=== PATIENT | female | born 1960 | race Caucasian/White ===

== ENCOUNTER → 2016-06-20 | Outpatient (REF) ==
[~2016-06-20] MED LIST: AUGMENTIN OR; DELTASONE OR; ECOT81TA5 PO; EXCEDRIN MIGRAINE OR; FIORICET OR; FISH100049 PO; INSUHUMDS SC; INSULANT SC; INVO300T PO; LISI-538 PO; MAG-OX OR; METF1000 PO; MOM30SS PO; PAME50CA PO; SENO8.6T10 PO; TOPA100T8 PO
--- NOTE | 2016-06-20 15:51 | REP ---
CERVICAL SPINE: The C1-C2 relationship is normal. On the lateral plane, the cervical spine is seen down to the level of C5-C6. C6-C7 is not included. The neural arches, disc spaces, neck and base of the skull are normal. On the AP plane of the cervical spine there is no significant neural foramen process spurs. IMPRESSION: The cervical spine study is normal. However, only the segments down to C5-C6 interspace are identified. Unreviewed
--- NOTE | 2016-06-20 16:00 | REP ---
LUMBAR SPINE: This study is compared to that on 02/15/2012. In the right upper quadrant are surgical clips from previous cholecystectomy. There are degenerative spurs of the spine with slight progressive disc space narrowing at L4-L5 and possibly at L5-S1. At L4-L5, slight anterolisthesis has occurred. The remaining thoracic and lumbar segments do show degenerative spurring. There are vascular calcifications in the abdominal aorta. The remaining structures of the abdomen, pelvis and sacroiliac joint visualized are unremarkable. The left hip is included on the study and appears grossly normal. IMPRESSION: Degenerative spurs of the spine. Progressive degenerative disc disease at L4-L5 with slight anterolisthesis. Minimal disc space narrowing at L5-S1, probably unchanged. Unreviewed
== END ==
LOC: M SMT 11:30
PROVIDERS: ATTEND Internal Medicine
DX: Z02.1 Encounter for pre-employment examination (principal)

== ENCOUNTER → 2016-11-07 | Outpatient (CLI) | payer OTHER ==
[~2016-11-07] MED LIST changes: +AUGM875T28 PO; +LANTINJ4 SC; -METF1000 PO; +METF10004 PO; +TOPA100T12 PO; -TOPA100T8 PO; +humalog
[2016-11-07 13:56] LABS: ALBUMIN 3.5 GM/DL (3.2-5.2); ANION GAP 6 MEQ/L (8-16); BLOOD UREA NITROGEN 23 MG/DL (7-18); CALCIUM LEVEL 9.6 MG/DL (8.5-10.1); CARBON DIOXIDE LEVEL 28 MEQ/L (21-32); CHLORIDE LEVEL 108 MEQ/L (98-107); CREATININE FOR GFR 1.01 MG/DL (0.55-1.02); GLOMERULAR FILTRATION RATE > 60.0 (>51); GLUCOSE, FASTING 117 MG/DL (70-105); PHOSPHORUS LEVEL 3.6 MG/DL (2.5-4.9); SODIUM LEVEL 142 MEQ/L (136-145)
[2016-11-07 14:02] LABS: POTASSIUM SERUM 5.2 MEQ/L (3.5-5.1)
== END ==
LOC: M LAB 12:24
PROVIDERS: ATTEND Internal Medicine Nephrology
DX: E11.22 Type 2 diabetes mellitus with diabetic chronic kidney disease (principal); N18.9 Chronic kidney disease, unspecified

== ENCOUNTER → 2017-02-01 | Outpatient (CLI) | payer OTHER ==
--- NOTE | 2017-02-01 12:04 | REPMRS ---
Patient History The patient states she had a clinical breast exam in 01/2017. Patient is postmenopausal. Family history of unknown cancer in father at age 50 or over. Digital Woman Screen Mammo: February 01, 2017 - Exam #: [id number] Bilateral CC and MLO view(s) were taken. Technologist: Renea Martin, Technologist Prior study comparison: September 10, 2008, bilateral digital woman screen mammo performed at [facility]. FINDINGS: The breast tissue is almost entirely fat. The patient states that there are no palpable abnormalities or other breast complaints. The parenchyma is predominately fat density. There has been no change in the appearance of the mammogram from the prior studies. There is no interval development of dominant mass, areas of architectural distortion, or clustered microcalcification typical of malignancy. ASSESSMENT: BI-RADS/ACR category 1 mammogram. Negative. Recommendation Routine screening mammogram in 1 year (for women over age 40). This mammogram was interpreted with the aid of an FDA-approved computer-aided dectection system. A. Negative x-ray reports should not delay biopsy if a dominant or clinically suspicious mass is present. B. Not all cancers are identified by mammography. C. Adenosis and dense breast may obscure an underlying neoplasm. Electronically Signed By: Jose Nino M.D. 02/01/17 [id number]
== END ==
LOC: M WHC 10:30
PROVIDERS: ATTEND Nurse Practitioner Women's Health
DX: Z12.31 Encounter for screening mammogram for malignant neoplasm of breast (principal)

== ENCOUNTER → 2017-02-01 | Outpatient (REF) | payer OTHER | LOC: M SFHCWAGY 11:06 | PROVIDERS: ATTEND Nurse Practitioner Women's Health | DX: Z12.4 Encounter for screening for malignant neoplasm of cervix (principal) ==

== ENCOUNTER → 2017-06-12 | Outpatient (CLI) | payer OTHER | LOC: M RAD 10:09 | DX: M79.604 Pain in right leg (principal) | CPT/HCPCS: 93971 ==

== ENCOUNTER 2017-08-17 19:24 | Emergency (ER) | payer MEDICAID, SELFPAY, OTHER ==
[2017-08-17] MEDS: NORCO, ANEXSIA 5/325MG TABLET (HYDROcodone/ACETAMINOPHEN) PO (21:27)
== END 2017-08-17 22:36 | disposition home or self-care (01) ==
LOC: M ED 19:24
DX: S90.31XA Contusion of right foot, initial encounter (principal); S82.001A Unspecified fracture of right patella, initial encounter for closed fracture; W01.0XXA Fall on same level from slipping, tripping and stumbling without subsequent striking against object, initial encounter; Y92.099 Unspecified place in other non-institutional residence as the place of occurrence of the external cause; Y99.9 Unspecified external cause status; Y93.K1 Activity, walking an animal; E11.9 Type 2 diabetes mellitus without complications; M77.31 Calcaneal spur, right foot; Z79.82 Long term (current) use of aspirin; Z79.4 Long term (current) use of insulin; Z79.899 Other long term (current) drug therapy; Z88.8 Allergy status to other drugs, medicaments and biological substances
CPT/HCPCS: 73564

== ENCOUNTER 2017-09-15 21:47 | Emergency (ER) | payer MEDICARE, MEDICAID ==
[2017-09-15 22:26] LABS: BEDSIDE GLUCOSE 244 MG/DL (70-105)
[2017-09-15 23:00] LABS: BASO % 0.4 % (0.0-1.0); EOS # 0.3 10^3/uL (0.0-0.50); EOS % 2.6 % (0.0-3.0); HEMOGLOBIN 10.6 g/dl (12.0-15.5); IMMATURE GRANULOCYTE % 0.5 % (0-3.0); LYMPH # 3.3 10^3/uL (1.5-4.5); LYMPH % 34.5 % (24.0-44.0); MEAN CORPUSCULAR HEMOGLOBIN 30.4 pg (27.0-33.0); MEAN CORPUSCULAR HGB CONC 32.1 g/dl (32.0-36.5); MEAN CORPUSCULAR VOLUME 94.6 fl (80.0-96.0); MONO # 0.4 10^3/uL (0.0-0.8); MONO % 4.2 % (0.0-5.0); NEUTROPHILS # 5.5 10^3/uL (1.8-7.7); NEUTROPHILS % 57.8 % (36.0-66.0); PLATELET COUNT, AUTOMATED 242 10^3/uL (150-450); RED BLOOD COUNT 3.49 10^6/uL (4.00-5.40); WHITE BLOOD COUNT 9.5 10^3/uL (4.0-10.0)
[2017-09-15] MEDS: KETOROLAC 30 MG/ML VIAL (J1885) IV (23:00)
[2017-09-15 23:26] LABS: ANION GAP 8 MEQ/L (8-16); BLOOD UREA NITROGEN 16 MG/DL (7-18); CALCIUM LEVEL 8.1 MG/DL (8.5-10.1); CARBON DIOXIDE LEVEL 26 MEQ/L (21-32); CHLORIDE LEVEL 108 MEQ/L (98-107); CPK CREATINE PHOSPHOKINASE 86 U/L (26-192); CREATININE FOR GFR 1.23 MG/DL (0.55-1.30); GLOMERULAR FILTRATION RATE 48.3 (>51); GLUCOSE, FASTING 254 MG/DL (70-100); MAGNESIUM LEVEL 1.4 MG/DL (1.8-2.4); POTASSIUM SERUM 4.6 MEQ/L (3.5-5.1); SODIUM LEVEL 142 MEQ/L (136-145); TROPONIN I < 0.02 NG/ML (< 0.10)
[2017-09-15 23:31] LABS: CK-MB VALUE MASS 1.5 NG/ML (<3.6); MB/CK RELATIVE INDEX 1.74 (< OR =4)
[2017-09-16 01:20] LABS: KETONE, URINE AUTO RFX NEGATIVE (NEGATIVE); LEUKOCYTE ESTERASE UR AUTO RFX NEGATIVE (NEGATIVE); MUCUS, URINE RFX SMALL (NEGATIVE); NITRITE, URINE AUTO RFX NEGATIVE (NEGATIVE); RBC, URINE AUTO RFX 1 /HPF (0-3); SPECIFIC GRAVITY UR AUTO RFX 1.023 (1.002-1.035); SQUAM EPITHELIAL CELL UR AURFX 2 /HPF (0-6); WBC, URINE AUTO RFX 5 /HPF (0-3)
== END 2017-09-16 02:23 | disposition home or self-care (01) ==
LOC: M ED 21:47
DX: T14.8XXA Other injury of unspecified body region, initial encounter (principal); W19.XXXA Unspecified fall, initial encounter; Y92.89 Other specified places as the place of occurrence of the external cause; E11.9 Type 2 diabetes mellitus without complications; I10 Essential (primary) hypertension; K21.9 Gastro-esophageal reflux disease without esophagitis; E78.5 Hyperlipidemia, unspecified; F32.9 Major depressive disorder, single episode, unspecified; F41.9 Anxiety disorder, unspecified; G50.0 Trigeminal neuralgia; I25.10 Atherosclerotic heart disease of native coronary artery without angina pectoris; M19.90 Unspecified osteoarthritis, unspecified site; Z95.5 Presence of coronary angioplasty implant and graft
CPT/HCPCS: J1885

== ENCOUNTER 2017-09-17 14:02 | Outpatient (RCR) | payer MEDICARE, MEDICAID | END 2017-09-26 | LOC: M PT 14:02 | DX: Z51.89 Encounter for other specified aftercare (principal); M17.0 Bilateral primary osteoarthritis of knee; S83.241D Other tear of medial meniscus, current injury, right knee, subsequent encounter; M25.561 Pain in right knee; M25.562 Pain in left knee | CPT/HCPCS: 97110 ==

== ENCOUNTER 2017-10-03 14:16 | Outpatient (RCR) | payer MEDICARE, MEDICAID | END 2017-10-26 | LOC: M PT 14:16 | DX: Z47.89 Encounter for other orthopedic aftercare (principal); M17.0 Bilateral primary osteoarthritis of knee; M25.561 Pain in right knee; M25.562 Pain in left knee | CPT/HCPCS: 97110 ==

== ENCOUNTER 2017-10-14 09:47 | Emergency (ER) | payer MEDICARE, MEDICAID ==
[2017-10-14 10:09] LABS: BASO # 0.1 10^3/uL (0.0-0.2); BASO % 0.6 % (0.0-1.0); EOS # 0.1 10^3/uL (0.0-0.50); EOS % 1.3 % (0.0-3.0); HEMATOCRIT 33.7 % (36.0-47.0); IMMATURE GRANULOCYTE % 0.3 % (0-3.0); LYMPH # 3.1 10^3/uL (1.5-4.5); MEAN CORPUSCULAR HEMOGLOBIN 30.2 pg (27.0-33.0); MEAN CORPUSCULAR HGB CONC 32.6 g/dl (32.0-36.5); MEAN CORPUSCULAR VOLUME 92.6 fl (80.0-96.0); MONO # 0.4 10^3/uL (0.0-0.8); MONO % 4.1 % (0.0-5.0); NEUTROPHILS # 5.9 10^3/uL (1.8-7.7); NEUTROPHILS % 61.7 % (36.0-66.0); PLATELET COUNT, AUTOMATED 288 10^3/uL (150-450); RED BLOOD COUNT 3.64 10^6/uL (4.00-5.40); RED CELL DISTRIBUTION WIDTH 12.9 % (11.5-14.5); WHITE BLOOD COUNT 9.7 10^3/uL (4.0-10.0)
[2017-10-14 10:23] LABS: INR 0.98; PROTHROMBIN TIME 13.1 SECONDS (12.4-14.5)
[2017-10-14 10:24] LABS: PARTIAL THROMBOPLASTIN TIME 24.2 SECONDS (26.8-37.9)
[2017-10-14 10:25] LABS: BEDSIDE GLUCOSE 208 MG/DL (70-105)
[2017-10-14 10:40] LABS: ANION GAP 8 MEQ/L (8-16); BLOOD UREA NITROGEN 33 MG/DL (7-18); CALCIUM LEVEL 8.8 MG/DL (8.5-10.1); CARBON DIOXIDE LEVEL 26 MEQ/L (21-32); CHLORIDE LEVEL 107 MEQ/L (98-107); CK-MB VALUE MASS 1.4 NG/ML (<3.6); CPK CREATINE PHOSPHOKINASE 72 U/L (26-192); CREATININE FOR GFR 1.35 MG/DL (0.55-1.30); GLOMERULAR FILTRATION RATE 43.3 (>51); GLUCOSE, FASTING 218 MG/DL (70-100); MAGNESIUM LEVEL 1.3 MG/DL (1.8-2.4); MB/CK RELATIVE INDEX 1.94 (< OR =4); POTASSIUM SERUM 4.6 MEQ/L (3.5-5.1); SODIUM LEVEL 141 MEQ/L (136-145); TROPONIN I < 0.02 NG/ML (< 0.10)
[2017-10-14] MEDS: MAG SULF 1GM/100ML (MAG RUN) 1 GM in APPROPRIATE DILUENT 1 EA IV (11:35)
[2017-10-14 12:46] LABS: BEDSIDE GLUCOSE 219 MG/DL (70-105)
[2017-10-14] MEDS: HumaLOG INSULIN (NovoLOG) PER UNIT SC ×2 (12:55)
[2017-10-14 13:45] LABS: CK-MB VALUE MASS 1.5 NG/ML (<3.6); CPK CREATINE PHOSPHOKINASE 70 U/L (26-192); MB/CK RELATIVE INDEX 2.14 (< OR =4); TROPONIN I < 0.02 NG/ML (< 0.10)
[2017-10-14 16:31] LABS: CK-MB VALUE MASS 1.1 NG/ML (<3.6); CPK CREATINE PHOSPHOKINASE 61 U/L (26-192); TROPONIN I < 0.02 NG/ML (< 0.10)
== END 2017-10-14 17:06 | disposition home or self-care (01) ==
LOC: M ED 09:47
DX: R55 Syncope and collapse (principal); N18.3 Chronic kidney disease, stage 3 (moderate); E11.65 Type 2 diabetes mellitus with hyperglycemia; R00.0 Tachycardia, unspecified; I25.10 Atherosclerotic heart disease of native coronary artery without angina pectoris; I10 Essential (primary) hypertension; F41.9 Anxiety disorder, unspecified; Z95.5 Presence of coronary angioplasty implant and graft; I65.23 Occlusion and stenosis of bilateral carotid arteries; Z79.82 Long term (current) use of aspirin; Z79.4 Long term (current) use of insulin; Z79.899 Other long term (current) drug therapy; Z88.8 Allergy status to other drugs, medicaments and biological substances
CPT/HCPCS: J3475

== ENCOUNTER 2017-11-04 15:50 | Outpatient (RCR) | payer MEDICARE, MEDICAID | END 2017-11-26 | LOC: M PT 15:50 | DX: Z47.89 Encounter for other orthopedic aftercare (principal); M17.0 Bilateral primary osteoarthritis of knee; S83.211D Bucket-handle tear of medial meniscus, current injury, right knee, subsequent encounter | CPT/HCPCS: 97110 ==

== ENCOUNTER 2017-11-28 13:32 | Outpatient (RCR) | payer MEDICARE, MEDICAID | END 2017-12-27 | LOC: M PT 13:32 | DX: Z51.89 Encounter for other specified aftercare (principal); Z98.890 Other specified postprocedural states; M17.12 Unilateral primary osteoarthritis, left knee | CPT/HCPCS: 97110 ==

== ENCOUNTER → 2018-01-04 | Outpatient (CLI) | payer MEDICARE, MEDICAID ==
[2018-01-04 11:53] LABS: ALBUMIN 3.6 GM/DL (3.2-5.2); ALKALINE PHOSPHATASE 106 U/L (45-117); ALT/SGPT 28 U/L (12-78); AST/SGOT 19 U/L (7-37); BILIRUBIN,DIRECT < 0.1 MG/DL (0.0-0.2); BILIRUBIN,TOTAL 0.2 MG/DL (0.2-1.0); CHOLESTEROL LEVEL 215 MG/DL (<200); CHOLESTEROL RISK RATIO 4.479 (<5); HDL CHOLESTEROL 48 MG/DL (>40); NON-HDL-C 167 MG/DL; TOTAL PROTEIN 7.6 GM/DL (6.4-8.2); TRIGLYCERIDES LEVEL 466 MG/DL (<150)
== END ==
LOC: M LAB 10:25
DX: E78.5 Hyperlipidemia, unspecified (principal)
CPT/HCPCS: 80076

== ENCOUNTER → 2018-02-04 | Outpatient (CLI) | payer MEDICARE, MEDICAID | LOC: M WHC 10:47 | DX: Z01.419 Encounter for gynecological examination (general) (routine) without abnormal findings (principal); Z12.31 Encounter for screening mammogram for malignant neoplasm of breast (principal); B37.3 Candidiasis of vulva and vagina; Z78.0 Asymptomatic menopausal state | CPT/HCPCS: 77067 ==

== ENCOUNTER → 2018-06-19 | Outpatient (CLI) | payer MEDICARE, MEDICAID ==
[~2018-06-19] MED LIST changes: +BAYE325T12 PO; +DONEPEZIL; +GABA-843; +METO1TAB87; +NORCOTAB PO; +PANT40TA3; +ROLLMIS2 XX; +SIMV80TA13; +TOUJ1.2I SC; +VENL150C43; +VENL75CA47; +ZONI100C2
[2018-06-19 14:35] LABS: CALCIUM LEVEL 9.1 MG/DL (8.5-10.1); CREATININE FOR GFR 1.27 MG/DL (0.55-1.30); GLOMERULAR FILTRATION RATE 46.3 (>51); POTASSIUM SERUM 4.8 MEQ/L (3.5-5.1)
== END ==
LOC: M LAB 13:26
PROVIDERS: ATTEND Orthopaedic Surgery
DX: E11.9 Type 2 diabetes mellitus without complications (principal)

== ENCOUNTER 2018-07-21 09:00 | Outpatient (RCR) | payer MEDICARE, MEDICAID | END 2018-07-27 | LOC: M PT 09:00 | PROVIDERS: ATTEND Orthopaedic Surgery | DX: S83.211D Bucket-handle tear of medial meniscus, current injury, right knee, subsequent encounter (principal) ==

== ENCOUNTER 2018-08-19 09:19 | Outpatient (RCR) | payer MEDICARE, MEDICAID ==
[~2018-08-19 09:19] MED LIST changes: +HYDR-3715 PO; -NORCOTAB PO
== END 2018-08-26 ==
LOC: M PT 09:19
PROVIDERS: ATTEND Orthopaedic Surgery
DX: Z47.89 Encounter for other orthopedic aftercare (principal)

== ENCOUNTER 2018-10-19 11:29 | Emergency (ER) | payer MEDICARE, MEDICAID ==
[~2018-10-19] VITALS: Ht 152.4 cm; Wt 111.6 kg
[2018-10-19] MEDS ORDERED: JARD1TAB PO (12:06)
[2018-10-19] MEDS ORDERED: ROSU20TA4 PO (12:06)
[2018-10-19] MEDS ORDERED: VITA-112 PO (12:06)
[2018-10-19] MEDS ORDERED: ALL10TAB28 PO (12:06)
[2018-10-19 12:12] LABS: BASO # 0.1 10^3/uL (0.0-0.2); BASO % 0.7 % (0.0-1.0); EOS # 0.2 10^3/uL (0.0-0.50); HEMATOCRIT 39.7 % (36.0-47.0); HEMOGLOBIN 12.4 g/dl (12.0-15.5); LYMPH # 3.6 10^3/uL (1.5-4.5); LYMPH % 39.6 % (24.0-44.0); MEAN CORPUSCULAR HEMOGLOBIN 29.4 pg (27.0-33.0); MEAN CORPUSCULAR HGB CONC 31.2 g/dl (32.0-36.5); MEAN CORPUSCULAR VOLUME 94.1 fl (80.0-96.0); MONO # 0.5 10^3/uL (0.0-0.8); MONO % 4.9 % (0.0-5.0); NEUTROPHILS # 4.8 10^3/uL (1.8-7.7); NEUTROPHILS % 52.5 % (36.0-66.0); PLATELET COUNT, AUTOMATED 300 10^3/uL (150-450); RED BLOOD COUNT 4.22 10^6/uL (4.00-5.40); WHITE BLOOD COUNT 9.2 10^3/uL (4.0-10.0)
[2018-10-19 12:38] LABS: ALBUMIN 3.3 GM/DL (3.2-5.2); ALT/SGPT 33 U/L (12-78); AMYLASE 91 U/L (25-115); BILIRUBIN,DIRECT < 0.1 MG/DL (0.0-0.2); BILIRUBIN,TOTAL 0.1 MG/DL (0.2-1.0); BLOOD UREA NITROGEN 24 MG/DL (7-18); CALCIUM LEVEL 9.1 MG/DL (8.5-10.1); CARBON DIOXIDE LEVEL 27 MEQ/L (21-32); CHLORIDE LEVEL 109 MEQ/L (98-107); CREATININE FOR GFR 1.33 MG/DL (0.55-1.30); GLOMERULAR FILTRATION RATE 43.9 (>51); GLUCOSE, FASTING 108 MG/DL (70-100); LIPASE 918 U/L (73-393); POTASSIUM SERUM 4.6 MEQ/L (3.5-5.1); SODIUM LEVEL 143 MEQ/L (136-145); TOTAL PROTEIN 7.6 GM/DL (6.4-8.2)
[2018-10-19] MEDS ORDERED: MORPHINE 4 MG/ML 1ML VIAL/SYRINGE (J2270) IV ONE (13:00)
[2018-10-19] MEDS ORDERED: NS 1,000 ML IV ONE (13:00)
[2018-10-19] MEDS ORDERED: MIRA3350 PO (14:49)
[2018-10-19 14:54] VITALS: BP 123/65
--- NOTE | 2018-10-19 15:19 | REP ---
CT of the abdomen and pelvis without IV or bowel contrast: Comparison is 12/07/2014. There are faintly visible calcifications within both right and left renal dustin, likely vascular atheromatous calcifications. There are no renal calculi otherwise. There is no hydronephrosis or hydroureter. There are no bladder calculi. The visualized lung horvath are unremarkable. The unenhanced hepatic parenchyma is unremarkable. There is a cholecystectomy. The pancreas and spleen are unremarkable. The adrenals are unremarkable. The abdominal aorta is unremarkable. The bowel and mesentery are unremarkable. Pelvis: The the patient states she has an appendectomy. Uterus, adnexa and bladder are unremarkable. There is no ascites or adenopathy. The pelvic bowel loops are unremarkable. Impression: Cholecystectomy and appendectomy. There are vascular atheromatous calcifications in the renal dustin. No renal collecting system calculi are identified. There is no hydronephrosis. Otherwise, negative CT of the abdomen and pelvis. Electronically Signed by Jose Nino MD 10/19/2018 03:10 P
== END 2018-10-19 15:15 | disposition home or self-care (01) ==
LOC: M ED 11:29
DX: R10.9 Unspecified abdominal pain (principal); Z79.4 Long term (current) use of insulin; Z79.82 Long term (current) use of aspirin; Z88.1 Allergy status to other antibiotic agents
CPT/HCPCS: 74176; 80048; 80076; 81001; 82150; 83690; 85025; 87086; 96361; 96374; 99284; J2270

== ENCOUNTER → 2019-02-05 | Outpatient (CLI) | payer MEDICARE, MEDICAID ==
[~2019-02-05] MED LIST changes: +ALL10TAB29 PO; +JARD1TAB PO; +MIRA3350 PO; +ROSU20TA5 PO; +VITA-112 PO
--- NOTE | 2019-02-05 10:59 | REPMRS ---
Patient History The patient states she had a clinical breast exam in 01/2019. Family history of unknown cancer at age 50 or over in father. Digital Woman Screen Mammo: February 05, 2019 - Exam #: [id number] Bilateral MLO, CC, and XCCL view(s) were taken. Technologist: Petra Farah, Technologist Prior study comparison: February 04, 2018, bilateral digital woman screen mammo performed at [facility]. February 01, 2017, digital woman screen mammo performed at [facility]. February 02, 2016, digital woman screen mammo performed at [facility]. FINDINGS: There are scattered fibroglandular densities. There has been no change in the appearance of the mammogram from the prior studies. There is a mild amount of scattered fibroglandular density which is fairly symmetric. There is no interval development of dominant mass, architectural distortion, or grouped microcalcification suggestive of malignancy. 3-D tomosynthesis shows no additional findings. Assessment: BI-RADS/ACR category 1 mammogram. Negative Mammogram. Recommendation Routine screening mammogram of both breasts in 1 year (for women over age 40). This patient's Lifetime Breast Cancer Risk is estimated at 5.4 %. This mammogram was interpreted with the aid of an FDA-approved computer-aided dectection system. Electronically Signed By: Avi Moss MD 02/05/19 [id number]
== END ==
LOC: M WHC 09:19
PROVIDERS: ATTEND Nurse Practitioner Women's Health
DX: Z12.31 Encounter for screening mammogram for malignant neoplasm of breast (principal); Z80.8 Family history of malignant neoplasm of other organs or systems
CPT/HCPCS: 77063; 77067; G0463

== ENCOUNTER 2019-03-11 09:05 | Emergency (ER) | payer MEDICARE, MEDICAID ==
[~2019-03-11] VITALS: Ht 162.6 cm; Wt 111.9 kg
[2019-03-11] MEDS ORDERED: TOUJ1.2I SC (09:42)
[2019-03-11] MEDS ORDERED: GABA-843 PO (09:42)
[2019-03-11] MEDS ORDERED: GNP250TA9 PO (09:42)
[2019-03-11 09:49] LABS: BASO # 0.1 10^3/uL (0.0-0.2); BASO % 0.8 % (0.0-1.0); EOS # 0.4 10^3/uL (0.0-0.5); EOS % 3.8 % (0.0-3.0); HEMATOCRIT 44.3 % (36.0-47.0); HEMOGLOBIN 13.5 g/dl (12.0-15.5); LYMPH # 2.4 10^3/uL (1.5-5.0); LYMPH % 25.8 % (24.0-44.0); MEAN CORPUSCULAR HEMOGLOBIN 28.9 pg (27.0-33.0); MEAN CORPUSCULAR HGB CONC 30.5 g/dl (32.0-36.5); MEAN CORPUSCULAR VOLUME 94.9 fl (80.0-96.0); MONO # 0.3 10^3/uL (0.0-0.8); MONO % 3.1 % (0.0-5.0); NEUTROPHILS # 6.1 10^3/uL (1.5-8.5); NEUTROPHILS % 66.1 % (36.0-66.0); PLATELET COUNT, AUTOMATED 290 10^3/uL (150-450); RED BLOOD COUNT 4.67 10^6/uL (4.00-5.40); WHITE BLOOD COUNT 9.2 10^3/uL (4.0-10.0)
--- NOTE | 2019-03-11 09:58 | REP ---
Single view chest: 03/11/2019. Indication: Chest pain. Comparison: 09/15/2017. Findings: There is no air space consolidation, pleural effusion or pneumothorax. The cardiomediastinal silhouette is unremarkable. Impression: No acute cardiopulmonary process. Electronically Signed by Luis Carlos Echols DO 03/11/2019 09:49 A
[2019-03-11 10:08] LABS: INR 0.95; PROTHROMBIN TIME 12.3 SECONDS (11.8-14.0)
[2019-03-11 10:09] LABS: PARTIAL THROMBOPLASTIN TIME 28.5 SECONDS (25.0-38.4)
[2019-03-11 10:22] LABS: ALBUMIN 3.6 GM/DL (3.2-5.2); ALT/SGPT 35 U/L (12-78); BILIRUBIN,DIRECT < 0.1 MG/DL (0.0-0.2); BILIRUBIN,TOTAL 0.2 MG/DL (0.2-1.0); BLOOD UREA NITROGEN 24 MG/DL (7-18); CALCIUM LEVEL 9.7 MG/DL (8.5-10.1); CARBON DIOXIDE LEVEL 26 MEQ/L (21-32); CHLORIDE LEVEL 103 MEQ/L (98-107); CK-MB VALUE MASS 1.7 NG/ML (<3.6); CPK CREATINE PHOSPHOKINASE 67 U/L (26-192); CREATININE FOR GFR 1.42 MG/DL (0.55-1.30); GLOMERULAR FILTRATION RATE 40.6 (>51); GLUCOSE, FASTING 347 MG/DL (70-100); MB/CK RELATIVE INDEX 2.54 (< OR =4); POTASSIUM SERUM 4.3 MEQ/L (3.5-5.1); SODIUM LEVEL 137 MEQ/L (136-145); TOTAL PROTEIN 7.7 GM/DL (6.4-8.2); TROPONIN I 0.04 NG/ML (< 0.10)
[2019-03-11] MEDS ORDERED: NS 500 ML IV ONE (11:00)
[2019-03-11] MEDS ORDERED: METOPROLOL TART 25 MG TABLET PO ONE (11:00)
[2019-03-11] MEDS ORDERED: VENLAFAXINE **XR** 75MG CAPSULE PO ONE (11:00)
[2019-03-11 12:45] LABS: CK-MB VALUE MASS 2.8 NG/ML (<3.6); MB/CK RELATIVE INDEX 3.64 (< OR =4); TROPONIN I 0.22 NG/ML (< 0.10)
[2019-03-11 15:28] VITALS: BP 152/87
--- NOTE | 2019-03-12 07:15 | ECGEPIP ---
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
--- NOTE | 2019-03-12 07:23 | ECGEPIP ---
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
== END 2019-03-11 15:31 | disposition short-term general hospital (02) ==
LOC: M ED 09:05
DX: I20.0 Unstable angina (principal); R00.0 Tachycardia, unspecified; E11.9 Type 2 diabetes mellitus without complications; I10 Essential (primary) hypertension; E78.5 Hyperlipidemia, unspecified; Z98.61 Coronary angioplasty status; Z90.49 Acquired absence of other specified parts of digestive tract; Z88.1 Allergy status to other antibiotic agents; Z79.4 Long term (current) use of insulin; Z79.82 Long term (current) use of aspirin; Z79.84 Long term (current) use of oral hypoglycemic drugs; Z79.899 Other long term (current) drug therapy

== ENCOUNTER → 2019-04-27 | Outpatient (REF) | payer MEDICARE, MEDICAID ==
[~2019-04-27] MED LIST changes: +GABA-843 PO; +GNP250TA9 PO
[2019-04-27 18:32] LABS: ALBUMIN 3.3 GM/DL (3.2-5.2); ALT/SGPT 23 U/L (12-78); BILIRUBIN,TOTAL 0.2 MG/DL (0.2-1.0); BLOOD UREA NITROGEN 25 MG/DL (7-18); CALCIUM LEVEL 8.9 MG/DL (8.5-10.1); CARBON DIOXIDE LEVEL 27 MEQ/L (21-32); CHLORIDE LEVEL 106 MEQ/L (98-107); CHOLESTEROL LEVEL 187 MG/DL (<200); CHOLESTEROL RISK RATIO 4.452 (<5); CREATININE FOR GFR 1.28 MG/DL (0.55-1.30); GLOMERULAR FILTRATION RATE 45.8 (>51); GLUCOSE, FASTING 256 MG/DL (70-100); HDL CHOLESTEROL 42 MG/DL (>40); NON-HDL-C 145 MG/DL; POTASSIUM SERUM 4.8 MEQ/L (3.5-5.1); SODIUM LEVEL 142 MEQ/L (136-145); TRIGLYCERIDES LEVEL 446 MG/DL (<150)
== END ==
LOC: M LAB REF 16:52
PROVIDERS: ATTEND Nurse Practitioner Family
DX: E78.5 Hyperlipidemia, unspecified (principal)

== ENCOUNTER → 2019-05-28 | Outpatient (REF) | payer MEDICARE, MEDICAID ==
[~2019-05-28] MED LIST changes: +ZONI100C17; -ZONI100C2
[2019-05-28 18:57] LABS: INFLUENZA A AMPLIFICATION NEGATIVE (NEGATIVE); INFLUENZA B AMPLIFICATION NEGATIVE (NEGATIVE)
== END ==
LOC: M LAB REF 18:12
PROVIDERS: ATTEND Physician Assistant
DX: J10.1 Influenza due to other identified influenza virus with other respiratory manifestations (principal)

== ENCOUNTER 2019-09-30 11:48 | Emergency (ER) | payer MEDICARE, MEDICAID ==
[~2019-09-30] VITALS: Ht 162.6 cm; Wt 102.3 kg
[~2019-09-30 11:48] MED LIST changes: -ALL10TAB29 PO; +CETI-24 PO; +GABA-282; +GABA-282 PO; -GABA-843; -GABA-843 PO; -LISI-538 PO; +LISI20TA33 PO; +PANT40TA29; -PANT40TA3
[2019-09-30] MEDS ORDERED: CLOP75TA2 (11:56)
[2019-09-30] MEDS ORDERED: ACETAMINOPHEN 325 MG TAB PO ONE (12:15)
[2019-09-30 12:18] LABS: BASO # 0.1 10^3/uL (0.0-0.2); BASO % 0.6 % (0.0-1.0); EOS # 0.4 10^3/uL (0.0-0.5); EOS % 3.5 % (0.0-3.0); HEMATOCRIT 39.2 % (36.0-47.0); LYMPH # 2.9 10^3/uL (1.5-5.0); LYMPH % 26.1 % (24.0-44.0); MEAN CORPUSCULAR HEMOGLOBIN 28.1 pg (27.0-33.0); MEAN CORPUSCULAR HGB CONC 30.6 g/dl (32.0-36.5); MEAN CORPUSCULAR VOLUME 91.8 fl (80.0-96.0); MONO # 0.4 10^3/uL (0.0-0.8); MONO % 3.5 % (0.0-5.0); NEUTROPHILS # 7.4 10^3/uL (1.5-8.5); NEUTROPHILS % 65.9 % (36.0-66.0); PLATELET COUNT, AUTOMATED 336 10^3/uL (150-450); RED BLOOD COUNT 4.27 10^6/uL (4.00-5.40); WHITE BLOOD COUNT 11.3 10^3/uL (4.0-10.0)
[2019-09-30 12:52] LABS: ALBUMIN 3.7 GM/DL (3.2-5.2); ALT/SGPT 29 U/L (12-78); BILIRUBIN,DIRECT < 0.1 MG/DL (0.0-0.2); BILIRUBIN,TOTAL 0.1 MG/DL (0.2-1.0); CK-MB VALUE MASS 1.6 NG/ML (<3.6); CPK CREATINE PHOSPHOKINASE 80 U/L (26-192); FREE T4 1.03 NG/DL (0.76-1.46); LIPASE 453 U/L (73-393); TOTAL PROTEIN 7.6 GM/DL (6.4-8.2); TROPONIN I 0.06 NG/ML (< 0.10)
--- NOTE | 2019-09-30 13:17 | REP ---
REASON FOR EXAM: Chest pain. COMPARISON: 03/11/2019 FINDINGS: The technique utilized in obtaining the radiograph has magnified the cardiac silhouette and accentuated the interstitial markings. The superior mediastinal structures are midline. The cardiac silhouette is unremarkable in size, shape, and position. The diaphragmatic surfaces of the lungs are regular, and the costophrenic angles are clear. The pulmonary horvath are clear. The imaged osseous structures are intact. IMPRESSION: There is no acute cardiopulmonary disease. No significant change compared to the prior exam. Electronically Signed by Osmel Benson DO 09/30/2019 01:29 P
[2019-09-30] MEDS ORDERED: ISOVUE-370 76% 100ML VIAL As Ordered ONE (14:26)
--- NOTE | 2019-09-30 15:33 | REP ---
REASON: Dyspnea with chest pain. COMPARISON: 09/20/2014, the latest prior. CONTRAST: 100 mL Isovue-370. There is excellent visualization of the pulmonary arterial vasculature. There are no focal filling defects present that would be considered consistent with acute pulmonary emboli. There are no pleural or pericardial effusions. The thoracic aorta is within normal limits. There is no mediastinal or hilar adenopathy. The imaged upper abdomen and imaged osseous structures are within normal limits. There are no abnormal nodules, masses, or opacities seen in the lung horvath. IMPRESSION: CT findings are within normal limits. Electronically Signed by Osmel Benson DO 09/30/2019 03:55 P
[2019-09-30] MEDS ORDERED: ZOFR4TAB16 PO (15:46)
[2019-09-30] MEDS ORDERED: NAPR-837 PO (15:46)
[2019-09-30 16:03] VITALS: BP 110/70
--- NOTE | 2019-09-30 18:47 | ECGEPIP ---
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
[2019-10-01] MEDS ORDERED: LISI10TA22 (17:16)
== END 2019-09-30 16:04 | disposition home or self-care (01) ==
LOC: M ED 11:48
DX: K85.90 Acute pancreatitis without necrosis or infection, unspecified (principal); R07.89 Other chest pain; E11.65 Type 2 diabetes mellitus with hyperglycemia; I10 Essential (primary) hypertension; I51.9 Heart disease, unspecified; Z95.5 Presence of coronary angioplasty implant and graft; Z79.82 Long term (current) use of aspirin; Z79.4 Long term (current) use of insulin; Z79.899 Other long term (current) drug therapy; Z88.8 Allergy status to other drugs, medicaments and biological substances
CPT/HCPCS: 71045; 71275; 80047; 80076; 82550; 82553; 83690; 84439; 84443; 84484; 85025; 85379; 93005; 93041; 94760; 99285; Q9967

== ENCOUNTER 2019-10-01 17:09 | Emergency (ER) | payer MEDICARE, MEDICAID ==
[~2019-10-01] VITALS: Ht 162.6 cm; Wt 113.0 kg
[~2019-10-01 17:09] MED LIST changes: +CLOP75TA2; +NAPR-837 PO; +ZOFR4TAB16 PO
[2019-10-01] MEDS ORDERED: LISI10TA22 (17:16)
[2019-10-01 17:51] LABS: BASO # 0.1 10^3/uL (0.0-0.2); BASO % 0.7 % (0.0-1.0); EOS # 0.3 10^3/uL (0.0-0.5); EOS % 2.9 % (0.0-3.0); HEMATOCRIT 36.9 % (36.0-47.0); HEMOGLOBIN 11.4 g/dl (12.0-15.5); LYMPH # 3.3 10^3/uL (1.5-5.0); LYMPH % 34.1 % (24.0-44.0); MEAN CORPUSCULAR HEMOGLOBIN 28.1 pg (27.0-33.0); MEAN CORPUSCULAR HGB CONC 30.9 g/dl (32.0-36.5); MEAN CORPUSCULAR VOLUME 90.9 fl (80.0-96.0); MONO # 0.5 10^3/uL (0.0-0.8); MONO % 4.7 % (0.0-5.0); NEUTROPHILS # 5.6 10^3/uL (1.5-8.5); NEUTROPHILS % 57.3 % (36.0-66.0); PLATELET COUNT, AUTOMATED 306 10^3/uL (150-450); RED BLOOD COUNT 4.06 10^6/uL (4.00-5.40); WHITE BLOOD COUNT 9.8 10^3/uL (4.0-10.0)
--- NOTE | 2019-10-01 18:11 | ECGEPIP ---
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
[2019-10-01 18:15] LABS: ALBUMIN 3.6 GM/DL (3.2-5.2); ALT/SGPT 29 U/L (12-78); BILIRUBIN,DIRECT < 0.1 MG/DL (0.0-0.2); BILIRUBIN,TOTAL 0.2 MG/DL (0.2-1.0); LIPASE 537 U/L (73-393); TOTAL PROTEIN 7.3 GM/DL (6.4-8.2)
[2019-10-01 18:47] LABS: BLOOD UREA NITROGEN 21 MG/DL (7-18); CALCIUM LEVEL 9.1 MG/DL (8.5-10.1); CARBON DIOXIDE LEVEL 26 MEQ/L (21-32); CHLORIDE LEVEL 105 MEQ/L (98-107); CK-MB VALUE MASS 3.5 NG/ML (<3.6); CPK CREATINE PHOSPHOKINASE 97 U/L (26-192); GLOMERULAR FILTRATION RATE 41.3 (>51); GLUCOSE, FASTING 254 MG/DL (70-100); MB/CK RELATIVE INDEX 3.61 (< OR =4); POTASSIUM SERUM 4.7 MEQ/L (3.5-5.1); SODIUM LEVEL 138 MEQ/L (136-145); TROPONIN I 0.37 NG/ML (< 0.10)
[2019-10-01] MEDS ORDERED: HEPARIN DRIP 25,000 UNITS in IV 1 EA IV SCH (19:11)
[2019-10-01] MEDS ORDERED: HEPARIN 25,000 UNITS/250 ML D5W BAG (100 UNITS/ML) (J1644 PER 1000UNITS) As Ordered ONE (19:15)
[2019-10-01] MEDS ORDERED: NITROGLYCERIN 0.4 MG SUBL TABLET SL PRN (19:15)
[2019-10-01] MEDS ORDERED: HEPARIN SOD (PORCINE) 5000UNITS/ML 1ML VIAL/SYRINGE IV ONE (19:15)
[2019-10-01] MEDS ORDERED: ASPIRIN 81 MG CHEW TABLET PO ONE (19:15)
[2019-10-01 19:58] VITALS: BP 117/69
[2019-10-01] MEDS ORDERED: CLOPIDOGREL 300 MG TAB (PLAVIX) PO ONE (20:00)
[2019-10-01] MEDS ORDERED: NITROGLYCERIN/D5W 100MCG/ML 25 MG in IV 1 EA IV SCH (20:15)
[2019-10-01] MEDS ORDERED: NITROGLYCERIN IN D5W 25MG/250ML (100MCG/ML) As Ordered ONE (20:15)
[2019-10-01 20:33] VITALS: BP 104/58
--- NOTE | 2019-10-02 00:17 | REP ---
CHEST, TWO VIEWS: There is no evidence of acute infiltrate. No pleural effusion is seen. The heart is normal in size. The mediastinal silhouette is unremarkable. The visualized osseous structures are intact. IMPRESSION: No acute pulmonary disease. Electronically Signed by Jose Smith MD 10/05/2019 09:30 P
--- NOTE | 2019-10-02 21:01 | ECGEPIP ---
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
== END 2019-10-01 20:37 | disposition short-term general hospital (02) ==
LOC: M ED 17:09
DX: I20.0 Unstable angina (principal); R79.89 Other specified abnormal findings of blood chemistry; E11.9 Type 2 diabetes mellitus without complications; I10 Essential (primary) hypertension; N18.9 Chronic kidney disease, unspecified; E78.5 Hyperlipidemia, unspecified; R56.9 Unspecified convulsions; F33.9 Major depressive disorder, recurrent, unspecified; F41.9 Anxiety disorder, unspecified; F43.10 Post-traumatic stress disorder, unspecified; G47.33 Obstructive sleep apnea (adult) (pediatric); F01.50 Vascular dementia, unspecified severity, without behavioral disturbance, psychotic disturbance, mood disturbance, and anxiety; Z79.899 Other long term (current) drug therapy; Z79.82 Long term (current) use of aspirin; Z79.4 Long term (current) use of insulin; Z79.01 Long term (current) use of anticoagulants; Z88.1 Allergy status to other antibiotic agents
CPT/HCPCS: 71046; 80047; 80048; 80076; 81001; 82550; 82553; 83690; 84484; 85025; 87486; 87581; 87633; 87798; 93005; 93041; 96374; 99291; J1644

== ENCOUNTER → 2019-10-09 | Outpatient (REF) | payer MEDICARE, MEDICAID ==
[~2019-10-09] MED LIST changes: +ALL10TAB29 PO; -CETI-24 PO; -GABA-282; -GABA-282 PO; +GABA-843; +GABA-843 PO; +LISI-538 PO; +LISI10TA4; -LISI20TA33 PO; -PANT40TA29; +PANT40TA3
[2019-10-09 12:17] LABS: BASO # 0.1 10^3/uL (0.0-0.2); BASO % 0.9 % (0.0-1.0); EOS # 0.2 10^3/uL (0.0-0.5); EOS % 2.8 % (0.0-3.0); HEMATOCRIT 40.3 % (36.0-47.0); LYMPH # 2.6 10^3/uL (1.5-5.0); LYMPH % 31.5 % (24.0-44.0); MEAN CORPUSCULAR HEMOGLOBIN 27.6 pg (27.0-33.0); MEAN CORPUSCULAR HGB CONC 29.8 g/dl (32.0-36.5); MEAN CORPUSCULAR VOLUME 92.6 fl (80.0-96.0); MONO # 0.4 10^3/uL (0.0-0.8); MONO % 4.5 % (0.0-5.0); NEUTROPHILS # 4.9 10^3/uL (1.5-8.5); NEUTROPHILS % 60.1 % (36.0-66.0); PLATELET COUNT, AUTOMATED 332 10^3/uL (150-450); RED BLOOD COUNT 4.35 10^6/uL (4.00-5.40); WHITE BLOOD COUNT 8.2 10^3/uL (4.0-10.0)
[2019-10-09 12:38] LABS: ALBUMIN 3.4 GM/DL (3.2-5.2); ALT/SGPT 29 U/L (12-78); BILIRUBIN,TOTAL 0.2 MG/DL (0.2-1.0); BLOOD UREA NITROGEN 35 MG/DL (7-18); CALCIUM LEVEL 9.5 MG/DL (8.5-10.1); CARBON DIOXIDE LEVEL 25 MEQ/L (21-32); CHLORIDE LEVEL 109 MEQ/L (98-107); CHOLESTEROL LEVEL 200 MG/DL (<200); CHOLESTEROL RISK RATIO 4.651 (<5); CREATININE FOR GFR 1.41 MG/DL (0.55-1.30); GLOMERULAR FILTRATION RATE 40.9 (>51); GLUCOSE, FASTING 114 MG/DL (70-100); HDL CHOLESTEROL 43 MG/DL (>40); NON-HDL-C 157 MG/DL; POTASSIUM SERUM 4.8 MEQ/L (3.5-5.1); SODIUM LEVEL 140 MEQ/L (136-145); TOTAL PROTEIN 7.3 GM/DL (6.4-8.2); TRIGLYCERIDES LEVEL 407 MG/DL (<150)
[2019-10-09 13:19] LABS: HEMOGLOBIN A1c 9.7 %
== END ==
LOC: M LAB REF 11:54
PROVIDERS: ATTEND Family Medicine
DX: E11.65 Type 2 diabetes mellitus with hyperglycemia (principal)

== ENCOUNTER → 2019-11-17 | Outpatient (REF) | payer MEDICARE, MEDICAID ==
[~2019-11-17] MED LIST changes: -ALL10TAB29 PO; +CETI-24 PO; +PANT40TA29; -PANT40TA3
[2019-11-17 19:06] LABS: PERCENT SATURATION 6.2 % (13.2-45.0)
== END ==
LOC: M LAB REF 17:12
PROVIDERS: ATTEND Nurse Practitioner Family
DX: D50.9 Iron deficiency anemia, unspecified (principal)

== ENCOUNTER → 2020-01-12 | Outpatient (REF) | payer MEDICARE, MEDICAID ==
[2020-01-12 12:44] LABS: BASO # 0.1 10^3/uL (0.0-0.2); BASO % 0.9 % (0.0-1.0); EOS # 0.2 10^3/uL (0.0-0.5); EOS % 3.1 % (0.0-3.0); HEMATOCRIT 38.8 % (36.0-47.0); HEMOGLOBIN 11.7 g/dl (12.0-15.5); LYMPH # 2.4 10^3/uL (1.5-5.0); LYMPH % 30.9 % (24.0-44.0); MEAN CORPUSCULAR HEMOGLOBIN 28.6 pg (27.0-33.0); MEAN CORPUSCULAR HGB CONC 30.2 g/dl (32.0-36.5); MEAN CORPUSCULAR VOLUME 94.9 fl (80.0-96.0); MONO # 0.4 10^3/uL (0.0-0.8); MONO % 5.2 % (0.0-5.0); NEUTROPHILS # 4.6 10^3/uL (1.5-8.5); NEUTROPHILS % 59.4 % (36.0-66.0); PLATELET COUNT, AUTOMATED 303 10^3/uL (150-450); RED BLOOD COUNT 4.09 10^6/uL (4.00-5.40); WHITE BLOOD COUNT 7.7 10^3/uL (4.0-10.0)
[2020-01-12 12:45] LABS: APPEARANCE, URINE CLEAR (CLEAR); BACTERIA, URINE AUTO NEGATIVE (NEGATIVE); BILIRUBIN, URINE AUTO NEGATIVE (NEGATIVE); BLOOD, URINE BLOOD NEGATIVE (NEGATIVE); COLOR, URINE YELLOW (YELLOW); GLUCOSE, URINE (UA) AUTO 3+ mg/dL (NEGATIVE); KETONE, URINE AUTO NEGATIVE (NEGATIVE); LEUKOCYTE ESTERASE, URINE AUTO TRACE (NEGATIVE); NITRITE, URINE AUTO NEGATIVE (NEGATIVE); PROTEIN, URINE AUTO NEGATIVE (NEGATIVE); RBC, URINE AUTO 1 /HPF (0-3); SPECIFIC GRAVITY URINE AUTO 1.022 (1.002-1.035); SQUAMOUS EPITHELIAL CELL UR AU 4 /HPF (0-6); UROBILINOGEN, URINE AUTO 0.2 mg/dL (0.0-2.0); WBC, URINE AUTO 2 /HPF (0-3)
[2020-01-12 12:52] LABS: ALBUMIN 3.5 GM/DL (3.2-5.2); ALT/SGPT 33 U/L (12-78); BILIRUBIN,TOTAL 0.2 MG/DL (0.2-1.0); BLOOD UREA NITROGEN 20 MG/DL (7-18); CALCIUM LEVEL 8.9 MG/DL (8.5-10.1); CARBON DIOXIDE LEVEL 24 MEQ/L (21-32); CHLORIDE LEVEL 105 MEQ/L (98-107); CHOLESTEROL LEVEL 205 MG/DL (<200); CHOLESTEROL RISK RATIO 5.256 (<5); CREATININE FOR GFR 1.64 MG/DL (0.55-1.30); GLOMERULAR FILTRATION RATE 34.3 (>51); GLUCOSE, FASTING 343 MG/DL (70-100); HDL CHOLESTEROL 39 MG/DL (>40); NON-HDL-C 166 MG/DL; POTASSIUM SERUM 4.5 MEQ/L (3.5-5.1); SODIUM LEVEL 139 MEQ/L (136-145); TOTAL PROTEIN 7.2 GM/DL (6.4-8.2); TRIGLYCERIDES LEVEL 657 MG/DL (<150)
== END ==
LOC: M LAB REF 11:03
PROVIDERS: ATTEND Nurse Practitioner Family
DX: E66.9 Obesity, unspecified (principal); E11.65 Type 2 diabetes mellitus with hyperglycemia; E11.3293 Type 2 diabetes mellitus with mild nonproliferative diabetic retinopathy without macular edema, bilateral; E78.5 Hyperlipidemia, unspecified; K59.00 Constipation, unspecified; R94.4 Abnormal results of kidney function studies

== ENCOUNTER → 2020-06-24 | Outpatient (REF) | payer MEDICARE, MEDICAID ==
[~2020-06-24] MED LIST changes: +GABA-282; +GABA-282 PO; -GABA-843; -GABA-843 PO; -LISI-538 PO; +LISI10TA22; -LISI10TA4; +LISI20TA33 PO
[2020-06-24 13:05] LABS: ALBUMIN 3.5 GM/DL (3.2-5.2); BILIRUBIN,TOTAL 0.2 MG/DL (0.2-1.0); CALCIUM LEVEL 8.9 MG/DL (8.5-10.1); CHOLESTEROL RISK RATIO 4.8 (<5); CREATININE FOR GFR 1.38 MG/DL (0.55-1.30); GLOMERULAR FILTRATION RATE 41.8 (>51); POTASSIUM SERUM 4.4 MEQ/L (3.5-5.1); TOTAL PROTEIN 6.9 GM/DL (6.4-8.2)
[2020-06-24 13:13] LABS: TOTAL 25(OH) VITAMIN D 28.2 NG/ML (30.0-100.0)
== END ==
LOC: M LAB REF 11:59
PROVIDERS: ATTEND Pediatrics
DX: E11.59 Type 2 diabetes mellitus with other circulatory complications (principal); N18.30 Chronic kidney disease, stage 3 unspecified; E78.5 Hyperlipidemia, unspecified

== ENCOUNTER → 2020-07-03 | Outpatient (CLI) | payer MEDICARE, MEDICAID | LOC: M LABSMTC 10:01 | PROVIDERS: ATTEND Internal Medicine Cardiovascular Disease | DX: Z01.812 Encounter for preprocedural laboratory examination (principal); Z20.822 Contact with and (suspected) exposure to COVID-19; I25.10 Atherosclerotic heart disease of native coronary artery without angina pectoris; I25.83 Coronary atherosclerosis due to lipid rich plaque ==

== ENCOUNTER → 2020-07-15 | Outpatient (CLI) | payer MEDICARE, MEDICAID ==
[2020-07-15 16:00] LABS: CREATININE FOR GFR 1.57 MG/DL (0.55-1.30)
== END ==
LOC: M LAB 15:11
PROVIDERS: ATTEND Nurse Practitioner Family
DX: I25.5 Ischemic cardiomyopathy (principal); I25.10 Atherosclerotic heart disease of native coronary artery without angina pectoris; I25.83 Coronary atherosclerosis due to lipid rich plaque; N18.30 Chronic kidney disease, stage 3 unspecified

== ENCOUNTER 2020-09-08 16:39 | Emergency (ER) | payer MEDICARE, MEDICAID ==
[~2020-09-08] VITALS: Ht 162.6 cm; Wt 111.0 kg
[2020-09-08] MEDS ORDERED: ACE65ERTAB PO (16:47)
--- NOTE | 2020-09-08 17:52 | REPVR ---
PROCEDURE INFORMATION: Exam: CT Head Without Contrast Exam date and time: 09/08/2020 5:12 PM Clinical indication: Pain; Headache; Other: Right; Additional info: Right-sided headache TECHNIQUE: Imaging protocol: Computed tomography of the head without contrast. COMPARISON: No relevant prior studies available. FINDINGS: Brain: No acute intracranial hemorrhage is visualized. The white-narayan differentiation is preserved demonstrating no acute territorial type infarct. There is no midline shift. There is minimal periventricular white matter hypodensity, likely representing small vessel ischemic disease in a patient this age. The acuity of the white matter disease is indeterminate. Mild age-appropriate prominence of the sulci. Artifact limits evaluation of the isabella. Cerebral ventricles: No ventriculomegaly. Bones/joints: The calvarium demonstrates no evidence for a depressed fracture. Paranasal sinuses: Visualized sinuses are unremarkable. No fluid levels. Mastoid air cells: Mild effusions within mastoid air cells bilaterally. Vasculature: Intracranial atherosclerosis visualized. Soft tissues: Unremarkable. IMPRESSION: 1. No acute intracranial hemorrhage or acute territorial type infarct. 2. There is minimal periventricular white matter hypodensity, likely representing small vessel ischemic disease in a patient this age. 3. Mild effusions within mastoid air cells bilaterally. Electronically signed by: Carter Callejas On 09/08/2020 17:52:15 PM
[2020-09-08] MEDS ORDERED: TETRACAINE 0.5% OPHTH SOLN 4ML OD ONE (18:25)
[2020-09-08 19:40] VITALS: BP 144/90
== END 2020-09-08 19:48 | disposition home or self-care (01) ==
LOC: M ED 16:39
DX: H21.561 Pupillary abnormality, right eye (principal); R51.9 Headache, unspecified; Z79.82 Long term (current) use of aspirin; Z79.899 Other long term (current) drug therapy

== ENCOUNTER → 2020-09-29 | Outpatient (REF) | payer MEDICARE, MEDICAID ==
[~2020-09-29] MED LIST changes: +ACE65ERTAB PO
[2020-09-29 17:50] LABS: PERCENT SATURATION 7.1 % (13.2-45.0)
== END ==
LOC: M LAB REF 16:46
PROVIDERS: ATTEND Internal Medicine Nephrology
DX: N18.9 Chronic kidney disease, unspecified (principal); D63.1 Anemia in chronic kidney disease

== ENCOUNTER 2020-10-17 13:20 | Outpatient (CLI) | payer MEDICARE, MEDICAID ==
[~2020-10-17] VITALS: Ht 162.6 cm; Wt 113.6 kg
[~2020-10-17 13:20] MED LIST changes: +ALBUTEROL SULFATE 2.5 MG/0.5 ML INH NEB SOLN INH PRN; +EPINEPHrine INJ 1 MG/ML 1ML AMP IM PRN; +diphenhydrAMINE 50MG/ML VIAL (J1200) IV PRN; +methylPREDNISolone 125MG 2ML VIAL IV PRN
[2020-10-17 13:43] VITALS: BP 149/76
[2020-10-17] MEDS ORDERED: FERRIC CARBOXYMALTOSE INJ 750 MG, VIAL MATE ADAPTER 1 EACH in NS 250 ML IV ONE (14:00)
[2020-10-17] MEDS ORDERED: NS 1,000 ML IV SCH (14:00)
[2020-10-17 15:30] VITALS: BP 153/70
== END 2020-10-17 15:30 | disposition home or self-care (01) ==
LOC: M INFU 13:20
PROVIDERS: ATTEND Internal Medicine Nephrology
DX: D50.9 Iron deficiency anemia, unspecified (principal); Z88.8 Allergy status to other drugs, medicaments and biological substances
CPT/HCPCS: 96365; J1439

== ENCOUNTER 2020-10-24 08:52 | Outpatient (CLI) | payer MEDICARE, MEDICAID ==
[~2020-10-24] VITALS: Ht 160 cm; Wt 113.6 kg
[2020-10-24] MEDS ORDERED: NS 1,000 ML IV SCH (09:00)
[2020-10-24] MEDS ORDERED: FERRIC CARBOXYMALTOSE INJ 750 MG, VIAL MATE ADAPTER 1 EACH in NS 250 ML IV ONE (09:00)
[2020-10-24 09:14] VITALS: BP 147/79
[2020-10-24 10:30] VITALS: BP 135/75
== END 2020-10-24 10:35 | disposition home or self-care (01) ==
LOC: M INFU 08:52
PROVIDERS: ATTEND Internal Medicine Nephrology
DX: D50.9 Iron deficiency anemia, unspecified (principal)
CPT/HCPCS: 96365; J1439

== ENCOUNTER 2021-01-29 05:04 | Emergency (ER) | payer MEDICARE, MEDICAID ==
[~2021-01-29] VITALS: Ht 162.6 cm; Wt 111.8 kg
[~2021-01-29 05:04] MED LIST changes: -ALBUTEROL SULFATE 2.5 MG/0.5 ML INH NEB SOLN INH PRN; -EPINEPHrine INJ 1 MG/ML 1ML AMP IM PRN; -diphenhydrAMINE 50MG/ML VIAL (J1200) IV PRN; -methylPREDNISolone 125MG 2ML VIAL IV PRN
[2021-01-29] MEDS ORDERED: ACETAMINOPHEN 500 MG TAB PO ONE (06:25)
[2021-01-29] MEDS ORDERED: ONDANSETRON 4 MG ORAL DISINTEGRATING TAB PO ONE (06:25)
--- NOTE | 2021-01-29 07:07 | REPVR ---
PROCEDURE INFORMATION: Exam: CT Head Without Contrast Exam date and time: 01/29/2021 5:31 AM Age: 60 years old Clinical indication: Injury or trauma; Fall; Blunt trauma (contusions or hematomas) TECHNIQUE: Imaging protocol: Computed tomography of the head without contrast. Radiation optimization: All CT scans at this facility use at least one of these dose optimization techniques: automated exposure control; mA and/or kV adjustment per patient size (includes targeted exams where dose is matched to clinical indication); or iterative reconstruction. COMPARISON: CT Head without contrast 09/08/2020 5:12 PM FINDINGS: Brain: No acute post-traumatic brain injury. Motion artifact limits evaluation of the posterior fossa. Symmetric prominence of the cortical sulci relative to the stated patient age. Minimal small vessel ischemic change. Cerebral ventricles: Normal configuration of the ventricles. Paranasal sinuses: No sinus fluid. Mastoid air cells: No mastoid effusion. Vasculature: Vascular, basal ganglia, and dural calcifications. Bones/joints: No acute calvarial injury. Soft tissues: No significant scalp hematoma. IMPRESSION: No acute post-traumatic brain injury. Electronically signed by: Gallo Rich On 01/29/2021 07:07:31 AM
--- NOTE | 2021-01-29 07:11 | REPVR ---
PROCEDURE INFORMATION: Exam: CT Cervical Spine Without Contrast Exam date and time: 01/29/2021 5:31 AM Age: 60 years old Clinical indication: Injury or trauma; Fall; Blunt trauma TECHNIQUE: Imaging protocol: Computed tomography images of the cervical spine without contrast. Radiation optimization: All CT scans at this facility use at least one of these dose optimization techniques: automated exposure control; mA and/or kV adjustment per patient size (includes targeted exams where dose is matched to clinical indication); or iterative reconstruction. COMPARISON: CT Head without contrast 09/08/2020 5:12 PM FINDINGS: Bones/joints: No acute bony injury in the visualized cervical spine. The anterior-inferior most aspect of the C7 vertebra and C7-T1 articulation is incompletely visualized. Discs/Spinal canal/Neural foramina: Mild C7-T1 interspinous widening. Degenerative change and ununited anterior osteophytes. Dental: Beam hardening artifact in association with dental amalgam and metallic necklace. Thyroid: Punctate thyroid calcification. Soft tissues: Ligamentous calcification. IMPRESSION: 1. No acute bony injury in the visualized cervical spine. The anterior-inferior most aspect of the C7 vertebra and C7-T1 articulation is incompletely visualized. 2. Mild C7-T1 interspinous widening. Electronically signed by: Gallo Rich On 01/29/2021 07:10:27 AM
--- NOTE | 2021-01-29 07:13 | REPVR ---
PROCEDURE INFORMATION: Exam: CT Maxillofacial Without Contrast Exam date and time: 01/29/2021 5:31 AM Age: 60 years old Clinical indication: Injury or trauma; Fall; Blunt trauma (contusions or hematomas); Orbit/periorbital; Left TECHNIQUE: Imaging protocol: Computed tomography images of the face without contrast. Radiation optimization: All CT scans at this facility use at least one of these dose optimization techniques: automated exposure control; mA and/or kV adjustment per patient size (includes targeted exams where dose is matched to clinical indication); or iterative reconstruction. COMPARISON: CT Maxilofacial w/out contrast 09/15/2017 10:17 PM FINDINGS: Beam hardening artifact is identified in association with dental amalgam. Orbital cavity: Unremarkable appearance of the globes, optic nerves, extraocular muscles. Bones/joints: No acute bony injury in the visualized facial bones. Paranasal sinuses: No sinus fluid. Soft tissues: Subcutaneous hemorrhage/edema in the left malar region. Nasal cavity: Midline nasal septum. Symmetric caliber of the nasal turbinates. IMPRESSION: 1. Subcutaneous hemorrhage/edema in the left malar region. 2. No acute bony injury in the visualized facial bones. Electronically signed by: Gallo Rich On 01/29/2021 07:12:37 AM
--- NOTE | 2021-01-29 07:14 | REPVR ---
PROCEDURE INFORMATION: Exam: XR Chest Exam date and time: 01/29/2021 7:03 AM Age: 60 years old Clinical indication: Screening exam; Other screening; Additional info: Ett TECHNIQUE: Imaging protocol: XR of the chest. Views: 1 view. COMPARISON: CR Chest, 2 view PA, Lat 10/01/2019 6:05 PM FINDINGS: Lungs: Hypoinflation, without significant airspace disease. Pleural spaces: Stable blunting of the left costophrenic angle. Heart/Mediastinum: No cardiomegaly. Bones/joints: Degenerative change. When correlating with the previous study, no significant interval changes are present. IMPRESSION: Stable appearance of the chest, not significantly changed from 10/01/19. Electronically signed by: Gallo Rich On 01/29/2021 07:13:39 AM
[2021-01-29 07:45] VITALS: BP 156/81
== END 2021-01-29 08:12 | disposition home or self-care (01) ==
LOC: M ED 05:04
DX: S09.90XA Unspecified injury of head, initial encounter (principal); S00.12XA Contusion of left eyelid and periocular area, initial encounter; M54.50 Low back pain, unspecified; W01.198A Fall on same level from slipping, tripping and stumbling with subsequent striking against other object, initial encounter; Y92.009 Unspecified place in unspecified non-institutional (private) residence as the place of occurrence of the external cause; Y93.9 Activity, unspecified; Y99.9 Unspecified external cause status; M25.78 Osteophyte, vertebrae; I25.10 Atherosclerotic heart disease of native coronary artery without angina pectoris; I25.2 Old myocardial infarction; E11.9 Type 2 diabetes mellitus without complications; I12.9 Hypertensive chronic kidney disease with stage 1 through stage 4 chronic kidney disease, or unspecified chronic kidney disease; G47.33 Obstructive sleep apnea (adult) (pediatric); Z79.899 Other long term (current) drug therapy
CPT/HCPCS: 70450; 70486; 71045; 72125; 99284; Q0162

== ENCOUNTER → 2021-02-07 | Outpatient (REF) | payer MEDICARE, MEDICAID | LOC: M LAB REF 16:33 | PROVIDERS: ATTEND Physician Assistant Medical | DX: H60.63 Unspecified chronic otitis externa, bilateral (principal) ==

== ENCOUNTER 2021-02-23 14:15 | Outpatient (RCR) | payer MEDICARE, MEDICAID | END 2021-02-26 | LOC: M PT 14:15 | PROVIDERS: ATTEND Physical Medicine & Rehabilitation | DX: M54.2 Cervicalgia (principal) ==

== ENCOUNTER 2021-03-15 16:09 | Emergency (ER) | payer MEDICARE, MEDICAID ==
[~2021-03-15] VITALS: Ht 162.6 cm; Wt 107.5 kg
[2021-03-15 16:10] VITALS: BP 136/84
[2021-03-15] MEDS ORDERED: NS 1,000 ML IV ONE ×2 (16:45→18:35)
[2021-03-15 17:46] LABS: VENOUS HCO3 28.1 MEQ/L (23.0-27.0); VENOUS O2 SATURATION 74.3 % (60.0-80.0); VENOUS PARTIAL PRESSURE CO2 60.4 mmHg (38.0-50.0); VENOUS PARTIAL PRESSURE O2 41.3 mmHg (30.0-50.0); VENOUS PH 7.285 UNITS (7.330-7.430); VENOUS TOTAL CO2 29.9 MEQ/L (24.0-28.0)
[2021-03-15 17:50] LABS: BASO # 0.1 10^3/uL (0.0-0.2); BASO % 0.9 % (0.0-1.0); EOS # 0.1 10^3/uL (0.0-0.5); EOS % 1.6 % (0.0-3.0); HEMATOCRIT 40.5 % (36.0-47.0); HEMOGLOBIN 13.1 g/dl (12.0-15.5); LYMPH # 2.9 10^3/uL (1.5-5.0); LYMPH % 35.4 % (24.0-44.0); MEAN CORPUSCULAR HEMOGLOBIN 31.6 pg (27.0-33.0); MEAN CORPUSCULAR HGB CONC 32.3 g/dl (32.0-36.5); MEAN CORPUSCULAR VOLUME 97.8 fl (80.0-96.0); MONO # 0.3 10^3/uL (0.0-0.8); NEUTROPHILS # 4.8 10^3/uL (1.5-8.5); NEUTROPHILS % 57.9 % (36.0-66.0); PLATELET COUNT, AUTOMATED 264 10^3/uL (150-450); RED BLOOD COUNT 4.14 10^6/uL (4.00-5.40); WHITE BLOOD COUNT 8.2 10^3/uL (4.0-10.0)
--- OUTSIDE RECORDS SUMMARY | 2021-03-15 17:52 | CCD | Continuity of Care Document ---
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 AUTM [phone] AUTM Unavailable AUTM Unavailable Problems Active Problems Provider Date Allergic rhinitis Abdulaziz Grant MD Onset: 11/01/2017 Chronic otitis externa Abdulaziz Grant MD Onset: 11/01/2017 Chronic tympanitis Abdulaziz Grant MD Onset: 12/16/2017 Acute non-suppurative otitis media - serous Abdulaziz Grant MD Onset: 07/11/2018 Acute suppurative otitis media without spontaneous rup ture of ear drum Abdulaziz Grant MD Onset: 07/11/2018 Social History Type Date Description Comments Sex Unknown Smokeless Tobacco Never Used Smokeless Tobacco ETOH Use Denies alcohol use Tobacco Use Start: Unknown Patient has never smoked Recreational Drug Use Denies Drug Use Allergies and adverse reactions Description No Known Drug Allergies Medications Active Medications SIG Qnty Indications Ordering Provide r Date Ofloxacin (Otic) 0.3% Solution 5 drops to each ear twice a day x 7 days 1units Dakota Torrez MD Cetirizine HCL 10mg Tablets take 1 tablet by mouth at night 90tabs J30.9 Dakota Torrez MD 11/15/2020 Colace 100mg Capsules 1 tab by mouth twice a day before meal. avoid if having diarrhea. 60caps Alexandrea Daigle M.D. 01/18/2020 Senna 8.6mg Tablets take two tablets by mouth together at bedtime; adjust dose to 1 tab. or hold if having diarrhea 60tabs Shawn Daigle M.D. 01/18/2020 Humalog 100Unit/ML Solution Humalog 100 Unit/ML Soln Unknown 10/05/2015 Venlafaxine HCL ER 75mg Caps ER 24 HR Effexor XR 75 MG [id number] 30caps Unknown 09/14 Venlafaxine HCL ER 150mg Caps ER 2 4HR Effexor XR 150 MG [id number] 30caps Unknown 08/27 Lisinopril 20mg Tablets Lisinopril 20 MG Tabs 30tabs Unknown 09/15/2015 Gabapentin 300mg Capsules Gabapentin 300 MG Caps Unknown 07/28/2015 Toujeo Solostar 300U nit/ML Solution Pen-Inject Toujeo Solostar 300 Unit/ML Sopn Unknown 05/27/2015 Simvastatin 80mg Tablets Simvastatin 80 MG Tabs 30tabs Unknown 05/27/2015 Metformin HCL 500mg Tablets 1 qd 60tabs Unknown 05/27/2015 Metoprolol Tartrate 25mg Tablets Metoprolol Tartrate 25 MG Tabs 60tabs Unknown 0 05/27/2015 Jardiance 10mg Tablets Take One Tablet By Mouth Once Daily Unknown Pantoprazole Sodium 40mg Tablets D R Take One Tablet By Mouth Once Daily Unknown 0 Zonisamide 100mg Capsules Take One Capsule By Mouth AT Bedtime Unknown Donepezil HCL 10mg Tablets Take One Tablet By Mouth Once Daily Unknown Magnesium 250mg Tablets daily Unknown Plavix 75mg Tablets 1 by mouth every day Unknown Aspirin [address] take 1 tab by mouth daily Unknown Ferrous Sulfate 324(65Fe) mg Table ts DR 1tab po qd Unknown Immunizations Description No Information Available Vital Signs Date Vital Result Comment 02/07/2021 11:13am Height 64 inches 5'4" Weight 246.00 lb BMI (Body Mass Index) 42.2 kg/m2 [place] Body Weight 120 lb Weight 111.586 kg BSA (Body Surface Area) 2.14 m2 11/30/2020 1:45pm Height 64 inches 5'4" Weight 244.00 lb BMI (Body Mass Index) 41.9 kg/m2 [place] Body Weight 120 lb Weight 110.678 kg BSA (Body Surface Area) 2.13 m2 Results Test Acquired Date Facility Test Result H/L Range Note Laboratory test finding 02/07/2021 [facility] Main Lab [address] [place], [place] [id number] [phone] Ear Culture FULL REPORT IN L <SEE NOTE> Normal 1 1 FULL REPORT IN LAB NOTES (eC W and Medent). NORMAL MITALI PRESENT ORGANISM 1: SERRATIA MARCESCENS QUANTITY OF GROWTH HEAVY ORGANISM 2: PSEUDOMONAS AERUGINOSA QUANTITY OF GROWTH HEAVY ORGANISM 1: SERRATIA MARCESCENS ORGANISM 2: PSEUDOMONAS AERUGINOSA SERRATIA MARCESCENS: REACTION TRIMETHOPRIM/SULFAMETHOXAZOLE IV 160mg TMP & 800mg SMXq6h <=20 S TRIMETHOPRIM/SULFAMETHOXAZOLE PO Bactrim DS Bid <=20 S GENTAMICIN IV 80mg q8h <=1 S CEFAZOLIN IV 1gm q8h >=64 R LEVOFLOXACIN IV 500mg qd <=0.12 S LEVOFLOXACIN PO 250mg qd <=0.12 S LEVOFLOXACIN PO 500mg qd <=0.12 S TOBRAMYCIN IV 80mg q8h <=1 S CEFTRIAXONE IV 1gm q24h <=1 S CEFTAZIDIME IV 1gm q8h <=1 S AZTREONAM IV 1gm q8h <=1 S ERTAPENEM IV 1gm qd <=0.5 S MEROPENEM IV 1 gm q8h <=0.25 S MEROPENEM IV 500 mg q8h <=0.25 S TIGECYCLINE IV 50mg q12h 2 S CEFEPIME IV 1 gm q12h <=1 S CEFEPIME IV 2 gm q12h <=1 S PSEUDOMONAS AERUGINOSA: REACTION GENTAMICIN IV 80mg q8h <=1 S LEVOFLOXACIN IV 500mg qd 0.5 S LEVOFLOXACIN PO 250mg qd 0.5 S LEVOFLOXACIN PO 500mg qd 0.5 S TOBRAMYCIN IV 80mg q8h <=1 S CEFTAZIDIME IV 1gm q8h 4 S PIPERACILLIN/TAZOBACTAM IV 2.25 gm q6h 8 S MEROPENEM IV 1 gm q8h 1 S MEROPENEM IV 500 mg q8h 1 S CEFEPIME IV 1 gm q12h 2 S CEFEPIME IV 2 gm q12h 2 S Procedures Date Code Description Status 02/07/2021 34274 Office/Outpatient Established Lo w MDM 20-29 Min Completed 11/30/2020 74433 Office/Outpatient Established Lo w MDM 20-29 Min Completed 11/23/2020 99753 Office/Outpatient Established Lo w MDM 20-29 Min Completed 11/15/2020 70408 Office/Outpatient Established Mo d MDM 30-39 Min Completed Medical Devices Description No Information Available Encounters Type Date Location Provider Dx Diagnosis Office Visit 02/07/2021 11:30a [facility] George Moise II, PA-C H60.63 Unspecified chronic otitis externa, bila teral Office Visit 11/30/2020 2:00p [facility] George Moise II, PA-C H60.63 Unspecified chronic otitis externa, bila teral J30.9 Allergic rhinitis, unspecifi ed Office Visit 11/23/2020 9:15a [facility] George Moise II PA-C H60.63 Unspecified chronic otitis externa, bila teral J30.9 Allergic rhinitis, unspecifi ed Office Visit 11/15/2020 8:15a [facility] George Moise II, PA-C J30.9 Allergic rhinitis, unspecified H60.63 Unspecified chronic otitis e xterna, bilateral Assessments Date Code Description Provider 02/07/2021 H60.63 Unspecified chronic otitis exter na, bilateral George Martinc II, PA-C 11/30/2020 H60.63 Unspecified chronic otitis exter na, bilateral George Martinc II, PA-C 11/30/2020 J30.9 Allergic rhinitis, unspecified T homas Suma II, PA-C 11/23/2020 H60.63 Unspecified chronic otitis exter na, bilateral George Ortizjac II, PA-C 11/23/2020 J30.9 Allergic rhinitis, unspecified T homas Suma II, PA-C 11/15/2020 J30.9 Allergic rhinitis, unspecified T homas Suma II, PA-C 11/15/2020 H60.63 Unspecified chronic otitis exter na, bilateral George Martinc II, PA-C Plan of Treatment Future Appointment(s):* 02/21/2021 9:15 am - George Moise II, PA-C at [facility] * 04/03/2021 9:30 am - George Moise II, PA-C at [facility] 02/07/2021 - George Moise II, PA-C* H60.63 Unspecified chronic otitis externa, bilateral* Comments:* She appears to have have external ear infections again. Culture taken from the right canal and both canals were dusted with boric acid powder. We will contact her with culture results and follow-up plan. * Follow up:* will contact Functional Status Description No Information Available Mental Status Description No Information Available Referrals Description No Information Available
--- OUTSIDE RECORDS SUMMARY | 2021-03-15 17:52 | CCD | Continuity of Care Document ---
Author Author Martha MOISE Organization Unknown Address [address] [place] [address] Phone [phone] Care Team Providers Care Preboarder Name Role Phone Vidal Urias M.D. AUTM [phone] AUTM Unavailable AUTM Unavailable Problems Active Problems [...] ER 24 HR Effexor XR 75 MG [id number] 30caps Unknown 09/14 Venlafaxine HCL ER 150mg Caps ER 2 4HR Effexor XR 150 MG [id number] 30caps Unknown 08/27 Lisinopril 20mg Tablets Lisinopril [...] lb BMI (Body Mass Index) 42.2 kg/m2 [place] Body Weight 120 lb Weight 111.586 kg BSA (Body Surface Area) 2.14 m2 11/30/2020 1:45pm Height 64 inches 5'4" Weight 244.00 lb BMI (Body Mass Index) 41.9 kg/m2 [place] Body Weight 120 lb Weight 110.678 kg BSA (Body Surface Area) 2.13 m2 Results Test Acquired Date Facility Test Result H/L Range Note Laboratory test finding 02/07/2021 [facility] Main Lab [address] [place], [place] [id number] [phone] Ear Culture FULL REPORT IN L <SEE [...] S Procedures Date Code Description Status 02/07/2021 94742 Office/Outpatient Established Lo w MDM 20-29 Min Completed 11/30/2020 19951 Office/Outpatient Established Lo w MDM 20-29 Min Completed 11/23/2020 26424 Office/Outpatient Established Lo w MDM 20-29 Min Completed 11/15/2020 03222 Office/Outpatient Established Mo d MDM 30-39 Min Completed Medical Devices Description No Information Available Encounters Type Date Location Provider Dx Diagnosis Office Visit 02/07/2021 11:30a [facility] George Moise II, PA-C H60.63 Unspecified chronic otitis externa, bila teral Office Visit 11/30/2020 2:00p [facility] George Moise II, PA-C H60.63 Unspecified chronic otitis externa, bila teral J30.9 Allergic rhinitis, unspecifi ed Office Visit 11/23/2020 9:15a [facility] George Moise II PA-C H60.63 Unspecified chronic otitis externa, bila teral J30.9 Allergic rhinitis, unspecifi ed Office Visit 11/15/2020 8:15a [facility] George Moise II, PA-C J30.9 [...] am - George Moise II, PA-C at [facility] * 04/03/2021 9:30 am - George Moise II, PA-C at [facility] 02/07/2021 - George Moise II, [...]
--- OUTSIDE RECORDS SUMMARY | 2021-03-15 17:52 | CCD | Continuity of Care Document ---
Author Author Martha MARTIN DPM Organization Unknown Address [address], [address] [place] [address] Phone [phone] Care Team Providers Care Pollution Control Engineer Name Role Phone MD Vidal UriasM [phone] Problems Active Problems Provider Date Bunion Star Martin DPM Onset: 10/16/2019 Type 2 diabetes mellitus Star Martin DPM Onset: 020 Social History Type Date Description Comments Sex Unknown ETOH Use Denies alcohol use Tobacco Use Start: Unknown End: Unknown Patient is a former smoker smoked briefly as a teen nothing since out of her teens Allergies and adverse reactions Description No Known Drug Allergies Medications Active Medications SIG Qnty Indications Ordering Provide r Date Ammonium Lactate 12% Cream apply to feet daily 140gm Star Martin DPM 10/09/2019 Aspirin Unknown Global Ease Inject Pen Neeedles [id number] 31G X 5 mm Misc Use as Directed Once Daily Unknown 0 Global Ease Inject Pen Neeedles [id number] 31G X 5 mm Misc Unknown Global Inject Ease Insulin Syringe/U-100 /1ML/31G X 5/16" 31G X 5/16" 1 ML Misc Unkno wn Global Inject Ease Insulin Syringe/U-100 /1ML/31G X 5/16" 31G X 5/16" 1 ML Misc Use as Directed Up To Four Times Daily Unknown Senna 8.6mg Tablets Take Two Tablets By Mouth AT Bedtime adjust Dose To One Tablet Or hold if having diarrhea Unknown Dok 100mg Capsules Take One Capsule By Mouth Twice Daily Unknown Amoxicillin/Clavulanate Potassium 875-125mg Tablets MD Mcgregor [place] 00 Nitroglycerin 0.4mg Tablets Sub Unknown Prodigy No Coding Blood Glucose Test Str ips Strips Use as Directed Six Times A Day Unknown Cetirizine HCL 10mg Tablets Take One Tablet By Mouth @8PM Unknown Ferosul 325(65Fe) mg Tablets Take One Tablet By Mouth @8Am Unknown Novolog 100Unit/ML Solution Unknown Ezetimibe 10mg Tablets MD Mcgregor [place] Nystatin [id number]/GM Cream MD Mcgregor [place] Venlafaxine HCL ER 75mg Caps ER 24HR MD Mcgregor [place] Vitamin D3 25mcg (1000 Ut) Tablets Take One Tablet By Mouth @8PM Unknown Magnesium Oxide 400mg Tablets Take One Tablet By Mouth @8Am and Take One Tablet @5PM Un known Toujeo Solostar 300U nit/ML Solution Pen-Inject Inject 75 Units Subcutaneously Every Evening Max Daily Dose 98 U nits Unknown Zonisamide 100mg Capsules Kourtney [place] M.D. Pantoprazole Sodium 40mg Tablets DR Megan Metformin HCL ER 500mg Tablets ER 24HR Unknown Lisinopril 10mg Tablets Unknown Jardiance 10mg Tablets Unknown Gabapentin 300mg Capsules Kourtney [place] M.D. Donepezil HCL 10mg Tablets Kourtney Hall M.D. Clopidogrel Bisulfate 75mg Tablets Unknown Venlafaxine HCL ER 150mg Caps ER 24HR MD Vidal Urias Metoprolol Tartrate 50mg Tablets Unknown Atorvastatin Calcium 80mg Tablets Unknown Immunizations Description No Information Available Vital Signs Date Vital Result Comment 10/07/2020 2:43pm Height 64 inches 5'4" Weight 235.00 lb BP Systolic 114 mmHg BP Diastolic 64 mmHg Heart Rate 58 /min BMI (Body Mass Index) 40.3 kg/m2 10/09/2019 3:39pm Height 64 inches 5'4" Weight 232.00 lb BP Systolic 140 mmHg BP Diastolic 92 mmHg Heart Rate 80 /min BMI (Body Mass Index) 39.8 kg/m2 Results Description No Information Available Procedures Date Code Description Status 02/02/2021 27434 Office/Outpatient Established SF MDM 10-19 Min Completed 10/07/2020 63842 Office/Outpatient Established SF MDM 10-19 Min Completed Medical Devices Description No Information Available Encounters Type Date Location Provider Dx Diagnosis Office Visit 02/02/2021 3:45p [place] [facility] Star Martin DPM M21.619 Bunion of unspecified foot E11.9 Type 2 diabetes mellitus wit hout complications Office Visit 10/07/2020 3:30p [place] [facility] Star Martin DPM M21.619 Bunion of unspecified foot E11.9 Type 2 diabetes mellitus wit hout complications Assessments Date Code Description Provider 02/02/2021 M21.619 Bunion of unspecified foot Thad Martin DPM 02/02/2021 E11.9 Type 2 diabetes mellitus without complications Star Martin DPM 10/07/2020 M21.619 Bunion of unspecified foot Thad Martin DPM 10/07/2020 E11.9 Type 2 diabetes mellitus without complications Star Martin DPM Plan of Treatment Future Appointment(s):* 10/09/2021 3:30 pm - Star Martin DPM at [facility] Functional Status Description No Information Available Mental Status Description No Information Available Referrals Description No Information Available
--- OUTSIDE RECORDS SUMMARY | 2021-03-15 17:53 | CCD | Continuity of Care Document ---
Author Author Martha MARTIN DPM Organization Unknown Address [address], [address] [place] [address] Phone [phone] Care Team Providers Care Auto Mechanics Instructor Name Role Phone MD Vidal UriasM [phone] Problems Active Problems Provider Date Bunion Star [...] Aspirin Unknown Global Ease Inject Pen Neeedles [id number] 31G X 5 mm Misc Use as Directed Once Daily Unknown 0 Global Ease Inject Pen Neeedles [id number] 31G X 5 mm Misc Unknown Global [...] 10mg Tablets MD Mcgregor [place] Nystatin [id number]/GM Cream MD Mcgregor [place] Venlafaxine HCL [...] Information Available Procedures Date Code Description Status 10/07/2020 21803 Office/Outpatient Established MDM 10-19 Min Completed Medical Devices Description No Information Available Encounters Type Date Location Provider Dx Diagnosis Office Visit 10/07/2020 3:30p [facility] Star Martin DPM M21.619 Bunion of unspecified foot E11.9 Type 2 diabetes mellitus wit hout complications Assessments Date Code Description Provider 10/07/2020 M21.619 Bunion of unspecified foot Thad Martin DPM 10/07/2020 E11.9 Type 2 diabetes mellitus without complications Star Martin DPM Plan of Treatment Future Appointment(s):* 10/09/2021 3:30 pm - Star Martin DPM at [facility] Functional Status Description No Information Available Mental Status Description No Information Available Referrals Description No Information Available
--- OUTSIDE RECORDS SUMMARY | 2021-03-15 17:53 | CCD ---
Author Organization Unknown Address [address] [place] [address] Phone [phone] Care Team Providers Care Web Content Editor Name Role Phone XAVI PICHARDO MD 82 [phone] [facility] 118 [phone] [facility] 119 [phone] [facility] 129 [phone] [facility] 212 [phone] CLOTILDE CARROLL MD 3 [phone] Allergies Code Code System Name Reaction Severity Status Onset [id number] RxNorm Trulicity Active Medications Name Status Start Date Stop Date ammonium lactate 12 % topical cream Completed 06/27/2020 amoxicillin 875 mg-potassium clavulanate 125 mg tablet TAKE ONE TABLET BY MOUTH TWICE DAILY FOR 10 DAYS Completed 01/25/2021 aspirin 81 mg tablet,delayed release Take 1 tablet every day by oral route. Active Not available atorvastatin 40 mg tablet Completed 2020 atorvastatin 80 mg tablet Active Not av ailable cefdinir 300 mg capsule TAKE ONE CAPSULE BY MOUTH EVERY TWELVE HOURS FOR 10 DAYS Completed 01/25/2021 cetirizine 10 mg tablet TAKE ONE TABLET BY MOUTH @8PM Active Not avail able cholecalciferol (vitamin D3) 25 mcg (1,0 00 unit) tablet TAKE ONE TABLET BY MOUTH @8PM Completed cholecalciferol (vitamin D3) 50 mcg (2,0 00 unit) tablet TAKE ONE TABLET BY MOUTH @8PM Active Not avail able clopidogrel 75 mg tablet Active Not corinne ilable donepezil 10 mg tablet Active Not avail able ezetimibe 10 mg tablet Active Not avail able FeroSul 325 mg (65 mg iron) tablet TAKE ONE TABLET BY MOUTH @8AM Active Not avail able gabapentin 300 mg capsule Active Not av ailable glipizide 5 mg tablet Active Not availa ble hydrocodone 5 mg-acetaminophen 325 mg tablet Completed 06/17/2020 insulin syringe U-100 with needle 1 mL 31 gauge x 5/16" Active Not available Jardiance 10 mg tablet Active Not avail able lisinopril 10 mg tablet Active Not avai lable magnesium oxide 400 mg (241.3 mg magnesi um) tablet TAKE ONE TABLET BY MOUTH @8AM and TAKE ONE TABLET BY MOUTH @5PM Active Not available metformin 500 mg tablet Completed 06/17/19 metformin ER 500 mg tablet,extended release 24 hr Active Not available metoprolol tartrate 25 mg tablet Completed 06/17/2020 metoprolol tartrate 50 mg tablet Active Not available naproxen 500 mg tablet Completed nitroglycerin 0.4 mg sublingual tablet Active Not available Novolog U-100 Insulin aspart 100 unit/mL subcutaneous solution INJECT SUBCUTANEOUSLY as PER sliding scale MAX DAILY DOSE 95 UNITS Active Not available nystatin 100,000 unit/gram topical cream APPLY TO THE AFFECTED AREA(S) TOPICALLY UNDER bilateral breasts TWICE DAILY Active Not available nystatin-triamcinolone 100,000 unit/gram-0.1 % topical ointment Completed 06/17/2020 ondansetron HCl 4 mg tablet Completed 05/30 pantoprazole 40 mg tablet,delayed release Active Not available Pen Needle 31 gauge x 3/16" Active Not available Prodigy No Coding strips USE ONE STRIP DIRECTED TO TEST BLOOD GLUCOSE FOUR TIMES DAILY Active Not available rosuvastatin 20 mg tablet Completed 2020 Todavid SoloStar U-300 Insulin 300 unit/m L (1.5 mL) subcutaneous pen INJECT 75 UNITS SUBCUTANEOUSLY AT BEDTIME MAX DAILY DOSE 92 UNITS Active Not available Tylenol Arthritis Pain Active Not avail able venlafaxine ER 150 mg capsule,extended release 24 hr Active Not available venlafaxine ER 37.5 mg capsule,extended release 24 hr Completed 06/17/2020 venlafaxine ER 75 mg capsule,extended release 24 hr Active Not available zonisamide 100 mg capsule Active Not av ailable Problems Name Status Onset Date Source SNOMED CT Concept Unknown 05/27/2015 History Minimal Cognitive Impairment Active 06/23/2015 His tory Essential Tremor Active 06/23/2015 History Angina Pectoris Active 06/23/2015 History Syncope and Collapse Unknown 06/23/2015 History Headache Unknown 06/23/2015 History Memory Finding Unknown 06/23/2015 History Finding of General Energy Unknown 06/23/2015 Histor y Procedure by Method Unknown 06/23/2015 History Renal Function Tests Abnormal Unknown 07/28/2015 Hi story Sinusitis Unknown 05/08/2016 History Cellulitis Unknown 08/14/2016 History Dizziness and Giddiness Active 09/07/2016 History Breast Neoplasm Screening Status Unknown 10/10/2016 History Mixed Anxiety and Depressive Disorder Active 11/15/2016 History Pain in Left Knee Unknown 12/25/2016 History Disorder of External Ear Unknown 03/20/2017 History Influenza Vaccine Needed Unknown 06/17/2018 History Constipation Active 10/23/2018 History Right Upper Quadrant Pain Unknown 10/23/2018 Histor y Dental Arch Length Loss Secondary to Dental Caries Unknown 01/02/2019 History Hyperlipidemia Active 03/20/2019 History Clinical Finding Unknown 03/20/2019 History Acquired Absence of Multiple Teeth Unknown 04/14/2019 History Nonproliferative Retinopathy Due to Diabetes Mellitus Active 04/17/2019 History Evaluation Finding Unknown 04/17/2019 History Median Nerve Compression in Forearm Active 05/01/2019 History Chronic Kidney Disease Stage 3 Unknown 05/01/2019 H istory Tenosynovitis of Wrist Active 06/30/2019 History Chronic Pancreatitis Active 10/05/2019 History General Finding of Observation of Patient Unknown 2019 History Patient Asked to Attend Unknown 10/13/2019 History Arthropathy Unknown 02/11/2020 History History and Physical Examination, Administrative Unknown 02/11/2020 History Under Immunized Unknown 02/11/2020 History Type 2 Diabetes Mellitus Active 06/17/2020 Morbid Obesity Active 06/17/2020 Obstructive Sleep Apnea Syndrome Active 06/17/2020 Migraine Active 06/17/2020 Coronary Arteriosclerosis Active 06/17/2020 Chronic Kidney Disease Stage 3 Active 06/17/2020 Vitamin D Deficiency Active 06/27/2020 Microalbuminuria Active 10/14/2020 Procedures Date Name Performed by 06/27/2020 DEXA, Axial Skeleton Information not corinne ilable Notes: Stents in heart x2, Gallbladder , Tonsillectomy, section x3, Left temporal arterial biopsy, Appendectomy, meniscus repair, Bilateral knee surgery (not total), Cardiac stent placement x2 Feb 2019, heart cath 2019 Results Lab Results Date Name Specimen Result Interpretation Description Value Range Status Address 12/01/2020 SARS CoV 2 RdRp Gene, QL Probe, Respiratory Spec imen Nasopharyngeal Normal Sars-cov-2 negative negative Final [facility]: [address] [facility] 07/03/2020 SARS CoV 2 RNA, QL, Nasopharynx NASOPHARYNX No observation recorded. [facility]: [address] [facility] 06/27/2020 SARS CoV 2 RdRp Gene, QL Probe, Respiratory Spec imen Nasopharyngeal Normal Sars-cov-2 negative negative Final [facility]: [address] [facility] 06/24/2020 Vitamin D, 25-Hydroxy, Total, Serum Blood venous No observation recorded. [facility] (Lab): [address] [facility] 06/24/2020 CMP, Serum or Plasma Blood venous No observa tion recorded. [facility] (Lab): [address] [facility] 06/24/2020 Lipid Panel, Serum Blood venous No observation recorded. [facility] (Lab): 0 [facility] 06/24/2020 CMP, Serum or Plasma High Glucose, Fastin g 191 mg/dL 70-100 mg/dL Final [facility]: [address] [facility] High Blood Urea Nitrogen 19 mg/dL 7-18 mg /dL [facility]: 0 [facility] High Creatinine for GFR 1.38 mg/dL 0.55-1 .30 mg/dL [facility]: 0 [facility] Low Glomerular Filtration Rate 41.8 >5 1 [facility]: [address] [facility] Normal Sodium Level 143 mEq/L 136-145 mEq/L [facility]: [address] [facility] Normal Potassium Serum 4.4 mEq/L 3.5-5.1 mE q/L [facility]: [address] [facility] High Chloride Level 109 mEq/L 98-107 mEq/ L [facility]: [address] [facility] Normal Carbon Dioxide Level 28 mEq/L 21-32 mEq/L [facility]: [address] [facility] Low Anion Gap 6 mEq/L 8-16 mEq/L [facility]: [address] [facility] Normal Calcium Level 8.9 mg/dL 8.5-10.1 mg/ dL [facility]: [address] [facility] Normal AST/SGOT 11 U/L 7-37 U/L [facility]: [address] [facility] Normal ALT/SGPT 29 U/L 12-78 U/L [facility]: [address] [facility] High Alkaline Phosphatase 138 U/L 45-117 U/L [facility]: [address] [facility] Normal Bilirubin,total 0.2 mg/dL 0.2-1.0 mg /dL [facility]: [address] [facility] Normal Total Protein 6.9 gm/dL 6.4-8.2 gm/d L [facility]: [address] [facility] Normal Albumin 3.5 gm/dL 3.2-5.2 gm/dL [facility] [address] [facility] Low Albumin/globulin Ratio 1.0 1.2-2. 2 [facility]: [address] [facility] 06/24/2020 Lipid Panel, Blood High Triglycerides Lev el 373 mg/dL <150 mg/dL [facility]: [address] 0 [facility] High Cholesterol Level 216 mg/dL <200 mg/ dL [facility]: [address] [facility] Normal HDL Cholesterol 45 mg/dL >40 mg/dL F inal [facility]: [address] [facility] Normal LDL Cholesterol 96 mg/dL <100 mg/dL [facility]: [address] [facility] Normal Non-hdl-c 171 mg/dL [facility]: [address] [facility] Normal Cholesterol Risk Ratio 4.800 <5 [facility]: [address] [facility] 06/24/2020 Vitamin D, 25-Hydroxy, Total, Serum Low Total 25(Oh) Vitamin D 28.2 NG/mL 30.0-100.0 NG/mL [facility] nter: [address] [facility] 06/17/2020 Hemoglobin a1C, Fingerstick ABNORMAL Hba1C 9.8 % Final [facility]: [address] [facility] Lipid Panel, Serum Blood venous Normal Cholesterol, T otal 179 mg/dL <200 mg/dL Final [facility]: [address] [facility] Blood venous Low HDL Cholesterol 37 mg/dL > or = 50 mg/dL Final [facility]: [address] [facility] Blood venous High Triglycerides 380 mg/dL <150 mg/dL Final [facility]: [address] [facility] Blood venous Normal LDL-cholesterol 91 mg/dL (pino c) Final [facility]: [address] [facility] Blood venous Normal Chol/hdlc Ratio 4.8 (calc) <5 .0 (calc) Final [facility]: [address] [facility] Blood venous High Non HDL Cholesterol 142 mg/dL (calc) <130 mg/dL (calc) Final [facility]: [address] [facility] Microalbumin/creatinine, Mass Ratio, Urine Blood venous N ormal Creatinine, Random Urine 48 mg/dL 20-275 mg/dL Final [facility]: [address] [facility] Blood venous Normal Albumin, Urine 4.6 mg/dL see note: mg/dL Final [facility]: [address] [facility] Blood venous High Albumin/creatin ine Ratio, Random Urine 96 mcg/mg creat <30 mcg/mg creat Final [facility]: [address] [facility] Renal Function Panel, Serum Blood venous High Gluco se 225 mg/dL 65-99 mg/dL Final [facility]: [address] [facility] Blood venous High Urea Nitrogen (BUN) 26 mg/dL 7-25 mg/dL Final [facility]: [address] [facility] Blood venous High Creatinine 1.39 mg/dL 0.50-1. 05 mg/dL [facility]: [address] [facility] Blood venous Low eGFR Non-afr. Cypriot 4 2 mL/min/1.73m2 > or = 60 mL/min/1.73m2 Final [facility]: [address] [facility] Blood venous Low eGFR 48 mL/min/1.73m2 > or = 60 mL/min/1.73m2 Final [facility]: [address] [facility] Blood venous Normal BUN/creatinine Ratio 19 (calc ) 6-22 (calc) [facility]: [address] [facility] Blood venous Normal Sodium 141 mmol/L 135-146 mmo l/L Final [facility]: [address] [facility] Blood venous Normal Potassium 5.2 mmol/L 3.5-5.3 mmol/L Final [facility]: [address] [facility] Blood venous Normal Chloride 104 mmol/L 98-110 mm ol/L [facility]: [address] [facility] Blood venous Normal Carbon Dioxide 30 mmol/L 20-3 2 mmol/L [facility]: [address] [facility] Blood venous Normal Calcium 9.0 mg/dL 8.6-10.4 mg /dL Final [facility]: [address] [facility] Blood venous Normal Phosphate (as Phosphorus) 4.0 mg/dL 2.5-4.5 mg/dL [facility]: [address] [facility] Blood venous Normal Albumin 3.9 g/dL 3.6-5.1 g/dL [facility]: [address] [facility] Lyme Disease Ab W/refl Ia (IgG,IgM) Blood venous Lyme Ab, Screen <=0.90 index <=0.90 index Final [facility]: [address] [facility] CBC W/ Auto Diff Blood venous Normal White Bl ood Cell Count 10.1 thousand/uL 3.8-10.8 thousand/uL Final [facility]: [address] [facility] Blood venous Normal Red Blood Cell Count 3.9 2 million/uL 3.80-5.10 million/uL [facility]: [address] [facility] Blood venous Low Hemoglobin 11.3 g/dL 11.7-15. 5 g/dL [facility]: [address] [facility] Blood venous Normal Hematocrit 35.0 % 35.0-45.0 % [facility]: [address] [facility] Blood venous Normal Mcv 89.3 fL 80.0-100.0 fL Fi [facility]: [address] [facility] Blood venous Normal Mch 28.8 pg 27.0-33.0 pg Fin al [facility]: [address] [facility] Blood venous Normal Mchc 32.3 g/dL 32.0-36.0 g/dL [facility]: [address] [facility] Blood venous Normal Rdw 14.0 % 11.0-15.0 % [facility]: [address] [facility] Blood venous Normal Platelet Count 348 thous and/uL 140-400 thousand/uL [facility] [address] [facility] Blood venous Normal Mpv 10.8 fL 7.5-12.5 fL [facility]: [address] [facility] Blood venous Normal Absolute Neutrophils 640 3 cells/uL 9361-9098 cells/uL [facility]: [address] [facility] Blood venous Normal Absolute Lymphocytes 292 9 cells/uL 850-3900 cells/uL [facility]: [address] [facility] Blood venous Normal Absolute Monocytes 465 c ells/uL 200-950 cells/uL [facility]: [address] [facility] Blood venous Normal Absolute Eosinophils 232 cells/uL 15-500 cells/uL [facility]: [address] [facility] Blood venous Normal Absolute Basophils 71 ce lls/uL 0-200 cells/uL [facility]: [address] [facility] Blood venous Normal Neutrophils 63.4 % 38-80 % Fi [facility]: [address] [facility] Blood venous Normal Lymphocytes 29.0 % 15-49 % Fi [facility]: [address] [facility] Blood venous Normal Monocytes 4.6 % 0-13 % [facility]: [address] [facility] Blood venous Normal Eosinophils 2.3 % 0-8 % Fin [facility]: [address] [facility] Blood venous Normal Basophils 0.7 % 0-2 % [facility]: [address] [facility] HONEY (Antinuclear Antibodies) Screen, Serum Blood venous Normal anachoice(R) Screen negative negative Final [facility]: [address] [facility] HbA1C (Hemoglobin a1C), Blood Blood venous High Hemoglobin a1C 9.9 % of total HGB <5.7 % of total HGB Final [facility]: [address] [place] Past Encounters 01/25/2021 Minimal Cognitive Impairment; Morbid Obesity; Type 2 Diabetes Mellitus; Immunization Advised; Body Mass Index 40+ - Severely Obese; Essential Hypertension Clotilde Carroll MD: [address] [place] [phone], Ph. 12/29/2020 Administration of SARS-CoV-2 Antigen Vaccine Vidal Urias MD: [address] [place] [phone], Ph. 12/01/2020 Exposure to SARS-CoV-2 Vidal Urias MD: [address] [place] [phone], Ph. 12/01/2020 Administration of SARS-CoV-2 Antigen Vaccine Vidal Urias MD: [address] [place] [phone], Ph. 10/10/2020 Clotilde Carroll MD: [address] [place] [phone], Ph. 10/03/2020 Adult Health Examination; Body Mass Index 40+ - Severely Obese; Type 2 Diabetes Mellitus; Hyperlipidemia; Chronic Kidney Disease Stage 3; Arthritis Clotilde Carroll MD: [address] [place] [phone], Ph. 09/16/2020 Body Mass Index 40+ - Severely Obese; Candidiasis of Skin Clotilde Carroll MD: [address] [place] [phone], Ph. 06/27/2020 Type 2 Diabetes Mellitus; Hyperlipidemia; Morbid Obesity; Chronic Kidney Disease Stage 3; Vitamin D Deficiency; Nasal Congestion; Exposure to SARS-CoV-2; Screening for Osteoporosis Clotilde Carroll MD: [address] [place] [phone], Ph. 06/24/2020 Xiao Barajas [facility]: [address] [place] [phone], Ph. 06/17/2020 Acute Sinusitis; Type 2 Diabetes Mellitus; Nonproliferative Retinopathy Due to Diabetes Mellitus; Hyperlipidemia; Chronic Kidney Disease Stage 3; Morbid Obesity; Coronary Arteriosclerosis Clotilde Carroll MD: [address] [place] [phone], Ph. Social History Tobacco Smoking Status Never Smoker Vaccine List Vaccine Type COVID-19, mRNA, LNP-S, PF, 100 mcg/0.5 m L dose .5 mL .5 mL Influenza, injectable, MDCK, preservativ e free, quadrivalent 06/17/20180.5 mL influenza, injectable, quadrivalent, pre servative free 02/11/20200.5 mL pneumococcal polysaccharide PPV23 .5 mL Plan of Care Reminders Provider Appointments None recorded. Lab None recorded. Referral None recorded. Procedures None recorded. Surgeries None recorded. Imaging None recorded. Vitals 01/25/2021 11:00AM ESTABLISHED [id number] Height Weight BMI Blood Pressure 64 in 245 lbs 16 oz 42.2 kg/m2 130/84 mm[Hg] 10/10/2020 10:30AM NURSE LAB COLLECTION Height 64 in 10/03/2020 09:40AM ANNUAL EXAM Height Weight BMI Blood Pressure 64 in 248 lbs 9.6 oz 42.7 kg/m2 127/82 mm[Hg ] 09/16/2020 02:20PM ESTABLISHED [id number] Height Weight BMI Blood Pressure 64 in 248 lbs 16 oz 42.7 kg/m2 120/82 mm[Hg] 06/27/2020 04:00PM ESTABLISHED [id number] Height Weight BMI Blood Pressure 64 in 252 lbs 3.2 oz 43.3 kg/m2 145/86 mm[Hg ] 06/17/2020 11:20AM ESTABLISHED [id number] Height Weight BMI Blood Pressure 64 in 252 lbs 43.3 kg/m2 113/79 mm[Hg] 02/11/2020 Height Blood Pressure 64 in 128/83 mm[Hg] 10/13/2019 Height Weight BMI Blood Pressure 64 in 240 lbs 0.96 oz 41.36 kg/m2 127/84 mm[H g] 10/05/2019 Height Weight BMI Blood Pressure 64 in 243 lbs 41.86 kg/m2 122/78 mm[Hg] 06/30/2019 Height Weight BMI Blood Pressure 64 in 242 lbs 41.69 kg/m2 123/81 mm[Hg] 05/01/2019 Height Weight BMI Blood Pressure 64 in 245 lbs 8 oz 42.29 kg/m2 135/97 mm[Hg] 03/20/2019 Height Weight BMI Blood Pressure 64 in 240 lbs 41.34 kg/m2 117/80 mm[Hg] 02/10/2019 Height Weight BMI Blood Pressure 64 in 248 lbs 4 oz 42.77 kg/m2 126/81 mm[Hg] 12/26/2018 Height Weight BMI Blood Pressure 64 in 248 lbs 8 oz 42.81 kg/m2 135/89 mm[Hg] 10/23/2018 Height Weight BMI Blood Pressure 64 in 248 lbs 42.72 kg/m2 125/75 mm[Hg] 06/17/2018 Height Weight BMI Blood Pressure 64 in 250 lbs 2.08 oz 43.09 kg/m2 139/85 mm[H g]
--- OUTSIDE RECORDS SUMMARY | 2021-03-15 17:53 | CCD | Continuity of Care Document ---
Author Author Martha MARTIN DPM Organization Unknown Address [address] [facility], [address] [place] [address] Phone [phone] Care Team Providers Care Rn Advice Name Role Phone MD Vidal UriasM [phone] Problems Active Problems Provider Date Bunion Star [...] Aspirin Unknown Global Ease Inject Pen Neeedles [id number] 31G X 5 mm Misc Use as Directed Once Daily Unknown 0 Global Ease Inject Pen Neeedles [id number] 31G X 5 mm Misc Unknown Global [...] 10mg Tablets MD [facility] Nystatin [id number] Cream MD [facility] Venlafaxine HCL [...] Available Procedures Date Code Description Status 10/07/2020 92652 Office/Outpatient Established MDM 10-19 Min Completed Medical Devices Description No Information Available Encounters Type Date Location Provider Dx Diagnosis Office Visit 10/07/2020 3:30p [facility] Star Martin DPM M21.619 Bunion of unspecified foot E11.9 Type 2 diabetes mellitus wit hout complications Assessments Date Code Description Provider 10/07/2020 M21.619 Bunion of unspecified foot Thad Martin DPM 10/07/2020 E11.9 Type 2 diabetes mellitus without complications Star Martin DPM Plan of Treatment Future Appointment(s):* 10/09/2021 3:30 pm - Star Martin DPM at [facility] Functional Status Description No Information Available Mental Status Description No Information Available Referrals Description No Information Available
--- OUTSIDE RECORDS SUMMARY | 2021-03-15 17:53 | CCD | Continuity of Care Document ---
Author Author Martha GONZALES MD Organization Unknown Address [address] [place] [address], [facility] [address] [place] [address] Phone [phone] Care Team Providers Care Regional Transfer Liaison Name Role Phone Vidal Urias MD AUTM [phone] Kourtney Hall AUTM [phone] Problems Active Problems Provider Date Type 2 diabetes mellitus Onset: 12/28/19 15 Pure hypercholesterolemia Angel Tenorio MD Onset: 020 Essential hypertension Angel Tenorio MD Onset: 12/14/2020 Social History Type Date Description Comments Sex Unknown ETOH Use Denies alcohol use Tobacco Use Start: Unknown End: Unknown Patient is a former smoker 1 year ago Smoking Status Reviewed: 03/29/20 Patient is a former smoker 1 year ago Allergies and adverse reactions Active Allergies Criticality Reaction | Severity Comments Date Trulicity Unable to assess criticality 09/07/2019 Inactive Allergies NKDA Unable to assess criticality 12/27/2014 Medications Active Medications SIG Qnty Indications Ordering Provide r Date Euflexxa 20mg/2ML Soln Prefill Syr rusty donald knee #1 bms/tf 01/06/21 donald knee #2 01/23/21 bms/sb, donald knees #3 BMS/DW 01/30/21 G56.01 Gallo Giraldo MD 06/21/2020 Metformin HCL ER 500mg Tablets ER 24HR Take One Tablet By Mouth @8Am and Take One Tablet By Mouth @5PM Unknown Nitroglycerin 0.4mg Tablets Sub place One Tablet under tongue Every Five Minutes as Needed For Chest pain Unknown Vitamin D3 50mcg (1999) Tablets Take One Tablet By Mouth @8PM Cyndie Mcgregor MD Nystatin 469032Zxko/GM Cream Apply To The Affected Area(S) Topically Under bilateral breasts Twice Daily Cyndie Mcgregor MD Amoxicillin/Clavulanate Potassium 875-125mg Tablets Take One Tablet By Mouth Twice Daily For 10 Days Betsey Dooley PA Cetirizine HCL 10mg Tablets Take One Tablet By Mouth @8PM George Moise PA-C 000 Cefdinir 300mg Capsules Take One Capsule By Mouth Every Twelve Hours For 10 Days Lashell Dooley PA Prodigy No Coding Blood Glucose Test Str ips Strips Use One Strip as Directed To Test Blood Glucose Four Times Daily Unknown Jardiance 10mg Tablets Unknown Ferosul 325(65Fe) mg Tablets Take One Tablet By Mouth @8Am Cyndie Mcgregor MD 0 Donepezil HCL 10mg Tablets Take One Tablet By Mouth @8Am Kourtney Hall MBBS Ezetimibe 10mg Tablets Take One Tablet By Mouth @8Am Cyndie Mcgregor MD Lisinopril 10mg Tablets Take One Tablet By Mouth @5PM Obey Maldonado MD Magnesium Oxide 400mg Tablets Take One Tablet By Mouth @8Am and Take One Tablet By Mouth @5PM Karina Herrmann DO Pantoprazole Sodium 40mg Tablets D R Take One Tablet By Mouth @8Am Cyndie Mcgregor MD Atorvastatin Calcium 80mg Tablets Cyndie Mcgregor MD Clopidogrel Bisulfate 75mg Tablets Obey Maldonado MD Novolog 100Unit/ML Solution per sliding scale Unknown Aspirin 81 Low Dose 81mg Chewtabs Unknown Toujeo Solostar 300U nit/ML Solution Pen-Inject 60 units every night at bedtime mdd 60 mdd 60 Unknown Zonisamide 100mg Capsules 1 by mouth twice a day Unknown Effexor XR 75mg Caps ER 24HR twice a day mdd 2 Unknown Venlafaxine HCL ER 150mg Caps ER 24HR Unknown Simvastatin 80mg Tablets 1 by mouth every day Unknown Metoprolol Tartrate 25mg Tablets 1 by mouth every day Unknown Metformin HCL 1000mg Tablets take one tablet by mouth twice a day Unknown Neurontin 300mg Capsules take one capsule by mouth three times a day Unknown Immunizations Description No Information Available Vital Signs Date Vital Result Comment 12/22/2020 1:31pm Body Temperature 97.1 F Height 64 inches 5'4" Weight 235.00 lb BMI (Body Mass Index) 40.3 kg/m2 04/13/2020 10:57am Body Temperature 96.2 F Height 62.5 inches 5'2.50" Weight 248.38 lb BMI (Body Mass Index) 44.7 kg/m2 Results Description No Information Available Procedures Date Code Description Status 01/30/2021 Inject/Drain Joint/Bursa Major C ompleted 01/23/2021 Inject/Drain Joint/Bursa Major C ompleted 01/11/2021 81734 Office/Outpatient Established Mo d MDM 30-39 Min Completed 01/11/2021 Inject/Drain Joint/Bursa Small C ompleted 01/06/2021 Inject/Drain Joint/Bursa Major C ompleted 12/22/2020 25601 Office/Outpatient New Moderate M DM 45-59 Minutes Completed 12/22/2020 85731 Needle Electromyography For Guid ance Completed 12/22/2020 24559 X-Ray Spine Cervical 6 Or More V iews Completed 12/22/2020 13065 Chemodenervation Of Muscles Inne rvated By Facial Nerves Completed 12/13/2020 78138 Office/Outpatient Established Lo w MDM 20-29 Min Completed 12/13/2020 38071 X-Ray Hand Three Views Completed 12/13/2020 Inject/Drain Joint/Bursa Major C ompleted Medical Devices Description No Information Available Encounters Type Date Location Provider Dx Diagnosis Office Visit 01/30/2021 10:45a Chris Freitas PA-C M1 7.0 Bilateral primary osteoarthritis of knee Office Visit 12/22/2020 1:30p [place] Dave Gonzales MD G43.709 Chronic migraine w/o aura, not intractable, w/o stat migr G24.3 Spasmodic torticollis M54.2 Cervicalgia G56.03 Carpal tunnel syndrome, bila teral upper limbs Office Visit 12/13/2020 11:00a [place] Wyatt Freitas PA-C M1 7.0 Bilateral primary osteoarthritis of knee M18.11 Unil primary osteoarth of fi rst carpometacarp joint, r hand Assessments Date Code Description Provider 02/02/2021 M54.2 Cervicalgia Dave Gonzales MD 02/02/2021 G56.03 Carpal tunnel syndrome, bilatera l upper limbs Dave Gonzales MD 02/02/2021 G43.709 Chronic migraine wit hout aura, not intractable, without status migrainosus Dave Gonzales MD 02/02/2021 G24.3 Spasmodic torticollis Dave Gonzales MD 01/30/2021 M17.0 Bilateral primary osteoarthritis of knee Wyatt Freitas PA-C 01/23/2021 M17.0 Bilateral primary osteoarthritis of knee Wyatt Freitas PA-C 01/11/2021 M18.11 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, right hand Wyatt Freitas PA-C 01/11/2021 M65.4 Radial styloid tenosynovitis [de Quervain] Wyatt Freitas PA-C 01/06/2021 M17.0 Bilateral primary osteoarthritis of knee Wyatt Freitas PA-C 12/22/2020 G43.709 Chronic migraine wit hout aura, not intractable, without status migrainosus Dave Gonzales MD 12/22/2020 G24.3 Spasmodic torticollis Dave Gonzales MD 12/22/2020 M54.2 Cervicalgia Dave Gonzales MD 12/22/2020 G56.03 Carpal tunnel syndrome, bilatera l upper limbs Dave Gonzales MD 12/13/2020 M17.0 Bilateral primary osteoarthritis of knee Wyatt Freitas PA-C 12/13/2020 M18.11 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, right hand Wyatt Freitas PA-C Plan of Treatment Future Appointment(s):* 02/08/2021 11:15 am - Wyatt Freitas PA-C at [place] 02/02/2021 - Dave Gonzales MD* M54.2 Cervicalgia * G56.03 Carpal tunnel syndrome, bilateral upper limbs * G43.709 Chronic migraine without aura, not intractable, without status migrainosus* New Orders:* Botox, Ordered: 02/02/21 * Follow up:* end of botox injections with [facility] * G24.3 Spasmodic torticollis* New Orders:* Quad Cane, Ordered: 02/02/21 Functional Status Description No Information Available Mental Status Description No Information Available Referrals Refer to Dr Reason for Referral Status Appt Date Wyatt Freitas PA-C 11/15/20 Euflexxa Donald Knee, N o auth req per ins based on medical necessity, passed to schedulers sw. CAN NOT HAVE TILL 01/07/21. Created [address] [place] [address] [address] [place] [address] [phone] Dave Gonzales MD BOTOX NO AUTH REQUIRED TO SCHEDULING NT Cre at[facility], [address] [place] [address] [phone]
--- OUTSIDE RECORDS SUMMARY | 2021-03-15 17:53 | CCD | Continuity of Care Document ---
Author Author Martha FREITAS PA-C Organization Unknown Address [address] [address] Phone [phone] Care Team Providers Care Civil Engineer Land Development Name Role Phone Vidal Urias MD AUTM [phone] Kourtney Hall AUTM [phone] Problems Active Problems Provider Date Type 2 [...] is a former smoker 1 year ago Allergies, Adverse Reactions, Alerts Active Allergies Criticality Reaction | Severity Comments Date Trulicity Unable to assess criticality 09/07/2019 Inactive Allergies NKDA Unable to assess criticality 12/27/2014 Medications Active Medications SIG Qnty Indications Ordering Provide r Date Euflexxa 20mg/2ML Soln Prefill Syr rusty donald knee #1 bms/tf 01/06/21 donald knee #2 01/23/21 bms/sb, donald knees #3 BMS/DW 01/30/21 G56.01 Gallo Giraldo MD 06/21/2020 Neurontin 300mg Capsules take one capsule by mouth three times a day Unknown Metformin HCL 1000mg Tablets take one tablet by mouth twice a day Unknown 0 Metoprolol Tartrate 25mg Tablets 1 by mouth every day Unknown Simvastatin 80mg Tablets 1 by mouth every day Unknown Venlafaxine HCL ER 150mg Caps ER 24HR Unknown Effexor XR 75mg Caps ER 24HR twice a day mdd 2 Unknown Zonisamide 100mg Capsules 1 by mouth twice a day Unknown Marianne Connollyostar 300U nit/ML Solution Pen-Inject 60 units every night at bedtime mdd 60 mdd 60 Unknown Aspirin 81 Low Dose 81mg Chewtabs Unknown Novolog 100Unit/ML Solution per sliding scale Unknown Immunizations Description No Information Available Vital [...] 01/23/2021 Inject/Drain Joint/Bursa Major C ompleted 01/11/2021 79837 Office/Outpatient Established Mo d MDM 30-39 Min Completed 01/11/2021 Inject/Drain Joint/Bursa Small C ompleted 01/06/2021 Inject/Drain Joint/Bursa Major C ompleted 12/22/2020 56995 Office/Outpatient New Moderate M DM 45-59 Minutes Completed 12/22/2020 90516 Needle Electromyography For Guid ance Completed 12/22/2020 26029 X-Ray Spine Cervical 6 Or More V iews Completed 12/22/2020 37450 Chemodenervation Of Muscles Inne rvated By Facial Nerves Completed 12/13/2020 47393 Office/Outpatient Established Lo w MDM 20-29 Min Completed 12/13/2020 19254 X-Ray Hand Three Views Completed 12/13/2020 Inject/Drain Joint/Bursa Major C ompleted Medical Devices Description No Information Available Encounters Type Date Location Provider Dx Diagnosis Office Visit 01/30/2021 10:45a [facility] M1 7.0 Bilateral primary osteoarthritis of knee Office Visit 12/22/2020 1:30p [place] Dave Alexander MD G43.709 Chronic migraine w/o aura, not intractable, w/o stat migr G24.3 Spasmodic torticollis M54.2 Cervicalgia G56.03 Carpal tunnel syndrome, bila teral upper limbs Office Visit 12/13/2020 11:00a [place] Wyatt Freitas PA-C M1 7.0 Bilateral primary osteoarthritis of knee M18.11 Unil primary osteoarth of fi rst carpometacarp joint, r hand Assessments Date Code Description Provider 01/30/2021 M17.0 Bilateral primary osteoarthritis of knee [...] aura, not intractable, without status migrainosus Dave Alexander MD 12/22/2020 G24.3 Spasmodic torticollis Dave Alexander MD 12/22/2020 M54.2 Cervicalgia Dave Alexander MD 12/22/2020 G56.03 Carpal tunnel syndrome, bilatera l upper limbs Dave Alexander MD 12/13/2020 M17.0 Bilateral primary osteoarthritis of knee Wyatt Freitas PA-C 12/13/2020 M18.11 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, right hand Wyatt Freitas PA-C Plan of Treatment Future Appointment(s):* 02/08/2021 11:15 am - Wyatt Freitas PA-C at [place] * 02/02/2021 8:00 am - Dave Alexander MD at [place] 01/23/2021 - Wyatt Freitas PA-C* M17.0 Bilateral primary osteoarthritis of knee Functional Status Description No Information Available Mental Status Description No Information Available Referrals Refer to Reason for Referral Status Appt Date Wyatt Freitas PA-C 11/15/20 Euflexxa Donald Knee, N o auth req per ins based on medical necessity, passed to schedulers sw. CAN NOT HAVE TILL 01/07/21. Created [address] [place], [place] [id number] [place] [address] [phone] Dave Alexander MD BOTOX NO AUTH REQUIRED TO SCHEDULING NT [facility] at[facility] [address] [place] [address], [address] [place] [address] [phone]
--- OUTSIDE RECORDS SUMMARY | 2021-03-15 17:53 | CCD ---
Author Organization Unknown Address [address] [place] [address] Phone [phone] Care Team Providers Care Activity Manager Name Role Phone XAVI PICHARDO MD 82 [phone] [facility] 118 [phone] [facility] [place] 119 [phone] [facility] 129 [phone] [facility] 212 [phone] CLOTILDE CARROLL MD 3 [phone] Allergies Code Code System Name Reaction Severity Status Onset [id number] RxNorm Trulicity Active Medications Name Status Start [...] imen Nasopharyngeal Normal Sars-cov-2 negative negative Final [facility]: [address] [facility] 07/03/2020 SARS CoV 2 RNA, QL, Nasopharynx NASOPHARYNX No observation recorded. [facility]: [address] [facility] 06/27/2020 SARS CoV 2 RdRp Gene, QL Probe, Respiratory Spec imen Nasopharyngeal Normal Sars-cov-2 negative negative Final [facility]: [address] [facility] 06/24/2020 Vitamin D, 25-Hydroxy, Total, Serum Blood venous No observation recorded. [facility] (Lab): [address] [facility] 06/24/2020 CMP, Serum or Plasma Blood venous No observa tion recorded. [facility] (Lab): [address] [facility] 06/24/2020 Lipid Panel, Serum Blood venous No observation recorded. [facility] (Lab): 0 [facility] 06/24/2020 CMP, Serum or Plasma High Glucose, Fastin g 191 mg/dL 70-100 mg/dL Final [facility]: 83 [address] [facility] High Blood Urea Nitrogen 19 mg/dL 7-18 mg /dL [facility] [place]: 0 [facility] High Creatinine for GFR 1.38 mg/dL 0.55-1 .30 mg/dL [facility] [place]: 0 [facility] Low Glomerular Filtration Rate 41.8 >[address] [facility] [place]: [address] [facility] Normal Sodium Level 143 mEq/L 136-145 mEq/L [facility] [place]: [address] [facility] Normal Potassium Serum 4.4 mEq/L 3.5-5.1 mE q/L [facility] [place]: [address] [facility] High Chloride Level 109 mEq/L 98-107 mEq/ L [facility] [place]: [address] [facility] Normal Carbon Dioxide Level 28 mEq/L 21-32 mEq/L [facility] [place]: [address] [facility] Low Anion Gap 6 mEq/L 8-16 mEq/L [facility] [place]: [address] [facility] Normal Calcium Level 8.9 mg/dL 8.5-10.1 mg/ dL [facility] [place]: [address] [facility] Normal AST/SGOT 11 U/L 7-37 U/L [facility]: [address] [facility] Normal ALT/SGPT 29 U/L 12-78 U/L [facility]: [address] [facility] High Alkaline Phosphatase 138 U/L 45-117 U/L [facility] [place]: [address] [facility] Normal Bilirubin,total 0.2 mg/dL 0.2-1.0 mg /dL [facility] [place]: [address] [facility] Normal Total Protein 6.9 gm/dL 6.4-8.2 gm/d L [facility] [place]: [address] [facility] Normal Albumin 3.5 gm/dL 3.2-5.2 gm/dL [facility] [address] [facility] Low Albumin/globulin Ratio 1.0 1.2-2. 2 [facility] [place]: [address] [facility] 06/24/2020 Lipid Panel, Blood High Triglycerides Lev el 373 mg/dL <150 mg/dL [facility] [place]: 83 0 [facility] High Cholesterol Level 216 mg/dL <200 mg/ dL [facility] [place]: [address] [facility] Normal HDL Cholesterol 45 mg/dL >40 mg/dL F inal [facility]: [address] [facility] Normal LDL Cholesterol 96 mg/dL <100 mg/dL [facility] [place]: [address] [facility] Normal Non-hdl-c 171 mg/dL [facility]: [address] [facility] Normal Cholesterol Risk Ratio 4.[address] <[address] [facility] [place]: [address] [facility] 06/24/2020 Vitamin D, 25-Hydroxy, Total, Serum Low Total 25(Oh) Vitamin D 28.2 NG/mL 30.0-100.0 NG/mL [facility]: [address] [facility] 06/17/2020 Hemoglobin a1C, Fingerstick ABNORMAL Hba1C 9.8 % Final [facility]: [address] [facility] Lipid Panel, Serum Blood venous Normal Cholesterol, T otal 179 mg/dL <200 mg/dL Final [facility]: [address] [facility] Blood venous Low HDL Cholesterol 37 mg/dL > or = 50 mg/dL Final [facility]: [address] [facility] Blood venous High Triglycerides 380 mg/dL <150 mg/dL Final [facility]: [address] [facility] Blood venous Normal LDL-cholesterol 91 mg/dL (pino c) Final [facility]: [address] [facility] Blood venous Normal Chol/hdlc Ratio 4.8 (calc) <5 .0 (calc) Final [facility]: [address] [facility] Blood venous High Non HDL Cholesterol 142 mg/dL (calc) <130 mg/dL (calc) Final [facility]: [address] [facility] Microalbumin/creatinine, Mass Ratio, Urine Blood venous N ormal Creatinine, Random Urine 48 mg/dL 20-275 mg/dL Final [facility]: [address] [facility] Blood venous Normal Albumin, Urine 4.6 mg/dL see note: mg/dL Final [facility]: [address] [facility] Blood venous High Albumin/creatin ine Ratio, Random Urine 96 mcg/mg creat <30 mcg/mg creat Final [facility]: [address] [facility] Renal Function Panel, Serum Blood venous High Gluco se 225 mg/dL 65-99 mg/dL Final [facility]: [address] [facility] Blood venous High Urea Nitrogen (BUN) 26 mg/dL 7-25 mg/dL Final [facility]: [address] [facility] Blood venous High Creatinine 1.39 mg/dL 0.50-1. 05 mg/dL [facility]: [address] [facility] Blood venous Low eGFR Non-afr. Egyptian 4 2 mL/min/1.73m2 > or = 60 mL/min/1.73m2 Final [facility]: [address] [facility] Blood venous Low eGFR 48 mL/min/1.73m2 > or = 60 mL/min/1.73m2 Final [facility]: [address] [facility] Blood venous Normal BUN/creatinine Ratio 19 (calc ) 6-22 (calc) [facility]: [address] [facility] Blood venous Normal Sodium 141 mmol/L 135-146 mmo l/L Final [facility]: [address] [facility] Blood venous Normal Potassium 5.2 mmol/L 3.5-5.3 mmol/L Final [facility]: [address] [facility] Blood venous Normal Chloride 104 mmol/L 98-110 mm ol/L [facility]: [address] [facility] Blood venous Normal Carbon Dioxide 30 mmol/L 20-3 2 mmol/L [facility]: [address] [facility] Blood venous Normal Calcium 9.0 mg/dL 8.6-10.4 mg /dL Final [facility]: [address] [facility] Blood venous Normal Phosphate (as Phosphorus) 4.0 mg/dL 2.5-4.5 mg/dL [facility]: [address] [facility] Blood venous Normal Albumin 3.9 g/dL 3.6-5.1 g/dL [facility]: [address] [facility] Lyme Disease Ab W/refl Ia (IgG,IgM) Blood venous Lyme Ab, Screen <=0.90 index <=0.90 index Final [facility]: [address] [facility] CBC W/ Auto Diff Blood venous Normal White Bl ood Cell Count 10.1 thousand/uL 3.8-10.8 thousand/uL Final [facility]: [address] [facility] Blood venous Normal Red Blood Cell Count 3.9 2 million/uL 3.80-5.10 million/uL [facility]: [address] [facility] Blood venous Low Hemoglobin 11.3 g/dL 11.7-15. 5 g/dL [facility]: [address] [facility] Blood venous Normal Hematocrit 35.0 % 35.0-45.0 % [facility]: [address] [facility] Blood venous Normal Mcv 89.3 fL 80.0-100.0 fL [facility]: [address] [facility] Blood venous Normal Mch 28.8 pg 27.0-33.0 pg Fin al [facility]: [address] [facility] Blood venous Normal Mchc 32.3 g/dL 32.0-36.0 g/dL [facility]: [address] [facility] Blood venous Normal Rdw 14.0 % 11.0-15.0 % [facility]: [address] [facility] Blood venous Normal Platelet Count 348 thous and/uL 140-400 thousand/uL [facility]: [address] [facility] Blood venous Normal Mpv 10.8 fL 7.5-12.5 fL [facility]: [address] [facility] Blood venous Normal Absolute Neutrophils 640 3 cells/uL 9787-4911 cells/uL [facility]: [address] [facility] Blood venous Normal Absolute Lymphocytes 292 9 cells/uL 850-3900 cells/uL [facility]: [address] [facility] Blood venous Normal Absolute Monocytes 465 c ells/uL 200-950 cells/uL [facility]: 8[address] [facility] Blood venous Normal Absolute Eosinophils 232 cells/uL 15-500 cells/uL [facility]: [address] [place] Blood venous Normal Absolute Basophils 71 ce lls/uL 0-200 cells/uL [facility]: [address] [facility] Blood venous Normal Neutrophils 63.4 % 38-80 % Fi [facility]: [address] [facility] Blood venous Normal Lymphocytes 29.0 % 15-49 % Fi [facility]: [address] [facility] Blood venous Normal Monocytes 4.6 % 0-13 % [facility]: [address] [facility] Blood venous Normal Eosinophils 2.3 % 0-8 % Fin [facility]: [address] [facility] Blood venous Normal Basophils 0.7 % 0-2 % [facility]: [address] [facility] HONEY (Antinuclear Antibodies) Screen, Serum Blood venous Normal anachoice(R) Screen negative negative Final [facility]: [address] [facility] HbA1C (Hemoglobin a1C), Blood Blood venous High Hemoglobin a1C 9.9 % of total HGB <5.7 % of total HGB Final [facility]: [address] [place] Past Encounters 01/25/2021 Minimal Cognitive Impairment; Morbid Obesity; Type 2 Diabetes Mellitus; Immunization Advised; Body Mass Index 40+ - Severely Obese; Essential Hypertension Clotilde Carroll MD: [address] [place] [phone], Ph. 12/29/2020 Administration of SARS-CoV-2 Antigen Vaccine Vidal Urias MD: [address] [place] [phone], Ph. 12/01/2020 Exposure to SARS-CoV-2 Vidal Urias MD: [address] [place] [phone], Ph. 12/01/2020 Administration of SARS-CoV-2 Antigen Vaccine Vidal Urias MD: [address] [place] [phone], Ph. 10/10/2020 Clotilde Carroll MD: [address] [place] [phone], Ph. 10/03/2020 Adult Health Examination; Body Mass Index 40+ - Severely Obese; Type 2 Diabetes Mellitus; Hyperlipidemia; Chronic Kidney Disease Stage 3; Arthritis Clotilde Carroll MD: [address] [place] [phone], Ph. 09/16/2020 Body Mass Index 40+ - Severely Obese; Candidiasis of Skin Clotilde Carroll MD: [address] [place] [phone], Ph. 06/27/2020 Type 2 Diabetes Mellitus; Hyperlipidemia; Morbid Obesity; Chronic Kidney Disease Stage 3; Vitamin D Deficiency; Nasal Congestion; Exposure to SARS-CoV-2; Screening for Osteoporosis Clotilde Carroll MD: [address] [place] [phone], Ph. 06/24/2020 Xiao Barajas [facility]: [address] [place] [address], Ph. 06/17/2020 Acute Sinusitis; Type 2 Diabetes Mellitus; Nonproliferative Retinopathy Due to Diabetes Mellitus; Hyperlipidemia; Chronic Kidney Disease Stage 3; Morbid Obesity; Coronary Arteriosclerosis Clotilde Carroll MD: [address] [place] [address], Ph. Social History Tobacco Smoking Status Never [...] Imaging None recorded. Vitals 01/25/2021 11:00AM ESTABLISHED [id number] Height Weight BMI Blood Pressure 64 in 245 lbs 16 oz 42.2 kg/m2 130/84 mm[Hg] 10/10/2020 10:30AM NURSE LAB COLLECTION Height 64 in 10/03/2020 09:40AM ANNUAL EXAM Height Weight BMI Blood Pressure 64 in 248 lbs 9.6 oz 42.7 kg/m2 127/82 mm[Hg ] 09/16/2020 02:20PM ESTABLISHED [id number] Height Weight BMI Blood Pressure 64 in 248 lbs 16 oz 42.7 kg/m2 120/82 mm[Hg] 06/27/2020 04:00PM ESTABLISHED [id number] Height Weight BMI Blood Pressure 64 in 252 lbs 3.2 oz 43.3 kg/m2 145/86 mm[Hg ] 06/17/2020 11:20AM ESTABLISHED [id number] Height Weight BMI Blood Pressure 64 in [...]
--- OUTSIDE RECORDS SUMMARY | 2021-03-15 17:53 | CCD | Continuity of Care Document ---
Author Author Martha GONZALES MD Organization Unknown Address [address] [place] [address], [facility] [address] [place] [address] Phone [phone] Care Team Providers Care Technician Anatomic Pathology Name Role Phone Vidal Urias MD AUTM [phone] Kourtney Hall AUTM [phone] Problems Active Problems Provider Date Type 2 [...] Date Euflexxa 20mg/2ML Soln Prefill Syr rusty devang knee #1 bms/tf 01/06/21 devang knee #2 01/23/21 bms/sb, devang knees #3 BMS/DW 01/30/21 G56.01 Gallo Giraldo MD 06/21/2020 Metformin HCL ER 500mg Tablets ER 24HR Take One Tablet By Mouth @8Am and Take One Tablet By Mouth @5PM Unknown Nitroglycerin 0.4mg Tablets Sub place One Tablet under tongue Every Five Minutes as Needed For Chest pain Unknown Vitamin D3 50mcg (1999) Tablets Take One Tablet By Mouth @8PM Cyndie Mcgregor MD Nystatin [id number]/GM Cream Apply To The Affected Area(S) Topically [...] Available Procedures Date Code Description Status 02/02/2021 79503 Office/Outpatient Established Mo d MDM 30-39 Min Completed 01/30/2021 Inject/Drain Joint/Bursa Major C ompleted 01/23/2021 86158 Inject/Drain Joint/Bursa Major C ompleted 01/11/2021 35184 Office/Outpatient Established Mo d MDM 30-39 Min Completed 01/11/2021 03611 Inject/Drain Joint/Bursa Small C ompleted 01/06/2021 Inject/Drain Joint/Bursa Major C ompleted 12/22/2020 73981 Office/Outpatient New Moderate M DM 45-59 Minutes Completed 12/22/2020 04761 Needle Electromyography For Guid ance Completed 12/22/2020 20459 X-Ray Spine Cervical 6 Or More V iews Completed 12/22/2020 02477 Chemodenervation Of Muscles Inne rvated By Facial Nerves Completed 12/13/2020 57883 Office/Outpatient Established Lo w MDM 20-29 Min Completed 12/13/2020 24651 X-Ray Hand Three Views Completed 12/13/2020 Inject/Drain Joint/Bursa Major C ompleted Medical Devices Description No Information Available Encounters Type Date Location Provider Dx Diagnosis Office Visit 02/02/2021 8:00a Chris Gonzales MD G43.709 Chronic migraine w/o aura, not intractable, w/o stat migr G24.3 Spasmodic torticollis M47.892 Other spondylosis, cervical region M50.320 Other cerv disc degeneration , mid-cervical rgn, unsp level Office Visit 01/30/2021 10:45a [place] PA-C M1 7.0 Bilateral primary osteoarthritis of knee Office Visit 12/22/2020 1:30p [place] Gonzales MD G43.709 Chronic migraine w/o aura, not intractable, w/o stat migr G24.3 Spasmodic torticollis M54.2 Cervicalgia G56.03 Carpal tunnel syndrome, bila teral upper limbs Office Visit 12/13/2020 11:00a [place] Freitas PA-C M1 7.0 Bilateral primary osteoarthritis of knee M18.11 Unil primary osteoarth of fi rst carpometacarp joint, r hand Assessments Date Code Description Provider 02/02/2021 G43.709 Chronic migraine wit hout aura, not intractable, without status migrainosus Dave Gonzales MD 02/02/2021 G24.3 Spasmodic torticollis Dave Gonzales MD 02/02/2021 M47.892 Other spondylosis, cervical bree on Dave Gonzales MD 02/02/2021 M50.320 Other cervical disc degeneration, mid-cervical region, unspecified level Dave Gonzales MD 01/30/2021 M17.0 Bilateral primary [...] Freitas PA-C Plan of Treatment Future Appointment(s):* 03/14/2021 9:20 am - Dave Gonzales MD at [place] 01/23/2021 - Wyatt Freitas PA-C* M17.0 Bilateral primary osteoarthritis of knee Functional Status Description No Information Available Mental Status Description No Information Available Referrals Refer to Dr Reason for Referral Status Appt Date Dave Gonzales MD Physical therapy c spine, mo bility and apls, per [facility] no auth req Decision ID #:[id number] patient is going to [facility], passed to chart sw. Created [address] [place] [address] [phone] Dave Gonzales MD BOTOX PER DANNY Gagnon AT [facility] NO AUTH REQUIRED AND COVERED AT 100% TO SCHEDULING NT CALL REF #[id number] [place] [phone] Dave Gonzales MD Euflexxa devang knee per insura nce auth is valid for one injection done one jan 30, let wilda know sw. Created [address] [place] [phone] Wyatt Freitas PA-C 11/15/20 Euflexxa Devang Knee, N o auth req per ins based on medical necessity, passed to schedulers sw. CAN NOT HAVE TILL 01/07/21. Created [address] [place], [place] [id number] [place], [place] [id number] [phone] Dave Gonzales MD BOTOX NO AUTH REQUIRED TO SCHEDULING NT Cre ated [address] [place] [address], [address] [place] [address] [phone]
--- OUTSIDE RECORDS SUMMARY | 2021-03-15 17:53 | CCD | Continuity of Care Document ---
Author Author Martha FREITAS PA-C Organization Unknown Address [address] [address] Phone [phone] Care Team Providers Care Poultry Processing Supervisor Name Role Phone Vidal Urias MD AUTM [phone] Kourtney Hall AUTM [phone] Problems Active Problems Provider Date Type 2 [...] #1 bms/tf 01/06/21 donald knee #2 01/23/21 bms/sb G56.01 Gallo Giraldo MD 06/21/2020 Neurontin 300mg Capsules take one capsule by mouth three times a day Unknown Metformin HCL 1000mg Tablets take one tablet by mouth twice a day Unknown Metoprolol Tartrate 25mg Tablets 1 by mouth every day Unknown Simvastatin 80mg Tablets 1 by mouth every day Unknown Venlafaxine HCL ER 150mg Caps ER 24HR Unknown Effexor XR 75mg Caps ER 24HR twice a day mdd 2 Unknown Zonisamide 100mg Capsules 1 by mouth twice a day Unknown Marianne Larsen 300U nit/ML Solution Pen-Inject 60 units every [...] Information Available Procedures Date Code Description Status 01/23/2021 Inject/Drain Joint/Bursa Major C ompleted 01/11/2021 25714 Office/Outpatient Established Mo d MDM 30-39 Min Completed 01/11/2021 25506 Inject/Drain Joint/Bursa Small C ompleted 01/06/2021 Inject/Drain Joint/Bursa Major C ompleted 12/22/2020 06285 Office/Outpatient New Moderate M DM 45-59 Minutes Completed 12/22/2020 05180 Needle Electromyography For Guid ance Completed 12/22/2020 39809 X-Ray Spine Cervical 6 Or More V iews Completed 12/22/2020 71481 Chemodenervation Of Muscles Inne rvated By Facial Nerves Completed 12/13/2020 35451 Office/Outpatient Established Lo w MDM 20-29 Min Completed 12/13/2020 79954 X-Ray Hand Three Views Completed 12/13/202093870 Inject/Drain Joint/Bursa Major C ompleted Medical Devices Description No Information Available Encounters Type Date Location Provider Dx Diagnosis Office Visit 12/22/2020 1:30p [place] Dave Alexander MD G43.709 Chronic migraine w/o aura, not intractable, w/o stat migr G24.3 Spasmodic torticollis M54.2 Cervicalgia G56.03 Carpal tunnel syndrome, bila teral upper limbs Office Visit 12/13/2020 11:00a [place] Wyatt Freitas PA-C M1 7.0 Bilateral primary osteoarthritis of knee M18.11 Unil primary osteoarth of fi rst carpometacarp joint, r hand Assessments Date Code Description Provider 01/23/2021 M17.0 Bilateral primary osteoarthritis of knee [...] 11:15 am - Wyatt Freitas PA-C at [place] * 01/30/2021 10:45 am - Wyatt Freitas PA-C at [place] * 02/02/2021 8:00 am - Dave Alexander MD at [place] 01/23/2021 - Wyatt Freitas PA-C* M17.0 Bilateral primary osteoarthritis of knee Functional Status Description No Information Available Mental Status Description No Information Available Referrals Refer to Reason for Referral Status Appt Date Wyatt Freitas PA-C 11/15/20 Euflexxa Donald Knee, N o auth req per ins based on medical necessity, passed to schedulers sw. CAN NOT HAVE TILL 01/07/21. Created [address] [place] [address] [address] [place] [address] [phone] aDve Alexander MD BOTOX NO AUTH REQUIRED TO SCHEDULING NT Cre ated [address] [place] [address], [address] [place] [address] [phone]
--- OUTSIDE RECORDS SUMMARY | 2021-03-15 17:53 | CCD | Continuity of Care Document ---
Author Author Martha MOISE Organization Unknown Address [address] [facility] [address] [place] [address] Phone [phone] Care Team Providers Care Warehouse Order Picker Name Role Phone Vidal Urias M.D. AUTM [phone] AUTM Unavailable AUTM Unavailable Problems Active Problems [...] SIG Qnty Indications Ordering Provide r Date Cetirizine HCL 10mg Tablets take 1 tablet [...] ER 24 HR Effexor XR 75 MG [id number] 30caps Unknown 09/14 Venlafaxine HCL ER 150mg Caps ER 2 4HR Effexor XR 150 MG [id number] 30caps Unknown 08/27 Lisinopril 20mg Tablets Lisinopril 20 MG Tabs 30tabs Unknown 09/15/2015 Gabapentin 300mg Capsules Gabapentin 300 MG Caps Unknown 07/28/2015 Metformin HCL 500mg Tablets 1 qd 60tabs Unknown 05/27/2015 Simvastatin 80mg Tablets Simvastatin 80 MG Tabs 30tabs Unknown 05/27/2015 Todavid Bessar 300U nit/ML Solution Pen-Inject Marianne Larsen 300 Unit/ML Sopn Unknown 05/27/2015 Metoprolol Tartrate 25mg Tablets Metoprolol [...] lb BMI (Body Mass Index) 42.2 kg/m2 [place] Body Weight 120 lb Weight 111.586 kg BSA (Body Surface Area) 2.14 m2 11/30/2020 1:45pm Height 64 inches 5'4" Weight 244.00 lb BMI (Body Mass Index) 41.9 kg/m2 [place] Body Weight 120 lb Weight 110.678 kg BSA (Body Surface Area) 2.13 m2 Results Test Acquired Date Facility Test Result H/L Range Note Laboratory test finding 02/07/2021 [facility] Main Lab [address] [place] [address] [phone] Ear Culture <pending> Procedures Date Code Description Status 11/30/2020 19721 Office/Outpatient Established Lo w MDM 20-29 Min Completed 11/23/2020 15570 Office/Outpatient Established Lo w MDM 20-29 Min Completed 11/15/2020 70813 Office/Outpatient Established Mo d MDM 30-39 Min Completed Medical Devices Description No Information Available Encounters Type Date Location Provider Dx Diagnosis Office Visit 11/30/2020 2:00p [facility] [place] [facility] George Moise II, PA-C H60.63 Unspecified chronic otitis externa, bila teral J30.9 Allergic rhinitis, unspecifi ed Office Visit 11/23/2020 9:15a [facility] George Moise II PA-C H60.63 Unspecified chronic otitis externa, bila teral J30.9 Allergic rhinitis, unspecifi ed Office Visit 11/15/2020 8:15a [facility] George Moise II PA-C J30.9 Allergic rhinitis, unspecified H60.63 Unspecified chronic otitis e xterna, bilateral Assessments Date Code Description Provider 02/07/2021 H60.63 Unspecified chronic otitis exter na, bilateral George Moise II, PA-C 11/30/2020 H60.63 Unspecified chronic otitis exter na, bilateral George Moise II, PA-C 11/30/2020 J30.9 Allergic rhinitis, unspecified T adri Moise II, PA-C 11/23/2020 H60.63 Unspecified chronic otitis exter na, bilateral George Martinc II, PA-C 11/23/2020 J30.9 Allergic rhinitis, unspecified T adri Martinc II, PA-C 11/15/2020 J30.9 Allergic rhinitis, unspecified T homajoan Martinc II, PA-C 11/15/2020 H60.63 Unspecified chronic otitis exter na, bilateral George Moise II, PA-C Plan of Treatment Future Appointment(s):* 04/03/2021 9:30 am - George Moise II, PA-C at [facility] 02/07/2021 - George Moise II, PA-C* H60.63 Unspecified chronic otitis externa, bilateral* Follow up:* will contact Functional Status Description No Information Available Mental Status Description No Information Available Referrals Description No Information Available
--- OUTSIDE RECORDS SUMMARY | 2021-03-15 17:53 | CCD | Continuity of Care Document ---
Author Author Martha FREITAS PA-C Organization Unknown Address [address] [address] Phone [phone] Care Team Providers Care Strip Machine Tender Name Role Phone Vidal Urias MD AUTM [phone] Kourtney Hall AUTM [phone] Problems Active Problems Provider Date Type 2 [...] 01/23/2021 Inject/Drain Joint/Bursa Major C ompleted 01/11/2021 02566 Office/Outpatient Established Mo d MDM 30-39 Min Completed 01/11/2021 Inject/Drain Joint/Bursa Small C ompleted 01/06/2021 Inject/Drain Joint/Bursa Major C ompleted 12/22/2020 07957 Office/Outpatient New Moderate M DM 45-59 Minutes Completed 12/22/2020 47123 Needle Electromyography For Guid ance Completed 12/22/2020 25634 X-Ray Spine Cervical 6 Or More V iews Completed 12/22/2020 50673 Chemodenervation Of Muscles Inne rvated By Facial Nerves Completed 12/13/2020 53458 Office/Outpatient Established Lo w MDM 20-29 Min Completed 12/13/2020 91245 X-Ray Hand Three Views Completed 12/13/2020 Inject/Drain Joint/Bursa Major C ompleted Medical Devices Description No Information Available Encounters Type Date Location Provider Dx Diagnosis Office Visit 12/22/2020 1:30p Chris lAexander MD G43.709 Chronic migraine w/o aura, not intractable, w/o stat migr G24.3 Spasmodic torticollis M54.2 Cervicalgia G56.03 Carpal tunnel syndrome, bila teral upper limbs Office Visit 12/13/2020 11:00a [place] Wyatt Freitas PA-C M1 7.0 Bilateral primary [...] 11:15 am - Wyatt Freitas PA-C at [place] * 02/02/2021 8:00 am - Dave Alexander MD at [place] 01/23/2021 - Wyatt Freitas PA-C* M17.0 Bilateral primary osteoarthritis of knee Functional Status Description No Information Available Mental Status Description No Information Available Referrals Refer to Dr Reason for Referral Status Appt Date Wyatt Freitas, NOE 11/15/20 Euflexxa Donald Knee, N o auth req per ins based on medical necessity, passed to schedulers sw. CAN NOT HAVE TILL 01/07/21. Created [address] [place] [address] [address] [place] [address] [phone] Dave Alexander MD BOTOX NO AUTH REQUIRED TO SCHEDULING NT Cre ated [address] [place] [address], [address] [place] [address] [phone]
--- OUTSIDE RECORDS SUMMARY | 2021-03-15 17:53 | CCD ---
Author Organization Unknown Address [address] [place] [address] Phone [phone] Care Team Providers Care Buffet Runner Name Role Phone XAVI PICHARDO MD 82 [phone] [facility] 118 [phone] [facility] [place] 119 [phone] [facility] 129 [phone] [facility] 212 [phone] CLOTILDE CARROLL MD 3 [phone] Allergies Code Code System Name Reaction Severity Status Onset 4788888 RxNorm Trulicity Active Medications Name Status Start [...] imen Nasopharyngeal Normal Sars-cov-2 negative negative Final [facility] Medical: [address] [facility] 07/03/2020 SARS CoV 2 RNA, QL, Nasopharynx NASOPHARYNX No observation recorded. [facility]: [address] [facility] 06/27/2020 SARS CoV 2 RdRp Gene, QL Probe, Respiratory Spec imen Nasopharyngeal Normal Sars-cov-2 negative negative Final [facility] Medical: [address] [facility] 06/24/2020 Vitamin D, 25-Hydroxy, Total, Serum Blood venous No observation recorded. [facility] (Lab): [address] [facility] 06/24/2020 CMP, Serum or Plasma Blood venous No observa tion recorded. [facility] (Lab): [address] [facility] 06/24/2020 Lipid Panel, Serum Blood venous No observation recorded. [facility] (Lab): 0 [facility] 06/24/2020 CMP, Serum or Plasma High Glucose, Fastin g 191 mg/dL 70-100 mg/dL Final [facility]: 83 0 [facility] High Blood Urea Nitrogen 19 mg/dL 7-18 mg /dL [facility]: 0 [facility] High Creatinine for GFR 1.38 mg/dL 0.55-1 .30 mg/dL [facility]: 0 [facility] Low Glomerular Filtration Rate 41.8 >5 1 [facility]: [address] [facility] Normal Sodium Level 143 mEq/L 136-145 mEq/L [facility]: [address] [facility] Normal Potassium Serum 4.4 mEq/L 3.5-5.1 mE q/L [facility]: [address] [facility] High Chloride Level 109 mEq/L 98-107 mEq/ L [facility]: [address] [facility] Normal Carbon Dioxide Level 28 mEq/L 21-32 mEq/L [facility]: [address] [facility] Low Anion Gap 6 mEq/L 8-16 mEq/L [facility]: [address] [facility] Normal Calcium Level 8.9 mg/dL 8.5-10.1 mg/ dL [facility]: [address] [facility] Normal AST/SGOT 11 U/L 7-37 U/L [facility]: [address] [facility] Normal ALT/SGPT 29 U/L 12-78 U/L [facility]: [address] [facility] High Alkaline Phosphatase 138 U/L 45-117 U/L [facility]: [address] [facility] Normal Bilirubin,total 0.2 mg/dL 0.2-1.0 mg /dL [facility]: [address] [facility] Normal Total Protein 6.9 gm/dL 6.4-8.2 gm/d L [facility]: [address] [facility] Normal Albumin 3.5 gm/dL 3.2-5.2 gm/dL [facility]: [address] [facility] Low Albumin/globulin Ratio 1.0 1.2-2. 2 [facility]: [address] [facility] 06/24/2020 Lipid Panel, Blood High Triglycerides Lev el 373 mg/dL <150 mg/dL [facility]: 83 0 [facility] High Cholesterol Level 216 mg/dL <200 mg/ dL [facility]: [address] [facility] Normal HDL Cholesterol 45 mg/dL >40 mg/dL F inal [facility]: [address] [facility] Normal LDL Cholesterol 96 mg/dL <100 mg/dL [facility]: [address] [facility] Normal Non-hdl-c 171 mg/dL [facility]: [address] [facility] Normal Cholesterol Risk Ratio 4.800 <5 [facility]: [address] [facility] 06/24/2020 Vitamin D, 25-Hydroxy, Total, Serum Low Total 25(Oh) Vitamin D 28.2 NG/mL 30.0-100.0 NG/mL [facility] nter: [address] [facility] 06/17/2020 Hemoglobin a1C, Fingerstick ABNORMAL Hba1C 9.8 % Final [facility] Medical: [address] [facility] Lipid Panel, Serum Blood venous Normal Cholesterol, T otal 179 mg/dL <200 mg/dL Final [facility]: [address] [facility] Blood venous Low HDL Cholesterol 37 mg/dL > or = 50 mg/dL Final [facility]: [address] [facility] Blood venous High Triglycerides 380 mg/dL <150 mg/dL Final [facility]: [address] [facility] Blood venous Normal LDL-cholesterol 91 mg/dL (pino c) Final [facility]: [address] [facility] Blood venous Normal Chol/hdlc Ratio 4.8 (calc) <5 .0 (calc) Final [facility]: [address] [facility] Blood venous High Non HDL Cholesterol 142 mg/dL (calc) <130 mg/dL (calc) Final [facility]: [address] [facility] Microalbumin/creatinine, Mass Ratio, Urine Blood venous N ormal Creatinine, Random Urine 48 mg/dL 20-275 mg/dL Final [facility]: [address] [facility] Blood venous Normal Albumin, Urine 4.6 mg/dL see note: mg/dL Final [facility]: [address] [facility] Blood venous High Albumin/creatin ine Ratio, Random Urine 96 mcg/mg creat <30 mcg/mg creat Final [facility]: [address] [facility] Renal Function Panel, Serum Blood venous High Gluco se 225 mg/dL 65-99 mg/dL Final [facility]: [address] [facility] Blood venous High Urea Nitrogen (BUN) 26 mg/dL 7-25 mg/dL Final [facility]: [address] [facility] Blood venous High Creatinine 1.39 mg/dL 0.50-1. 05 mg/dL [facility]: [address] [facility] Blood venous Low eGFR Non-afr. Turkmen 4 2 mL/min/1.73m2 > or = 60 mL/min/1.73m2 Final [facility]: [address] [facility] Blood venous Low eGFR 48 mL/min/1.73m2 > or = 60 mL/min/1.73m2 [address] [facility]: [address] [facility] Blood venous Normal BUN/creatinine Ratio 19 (calc ) 6-22 (calc) [facility]: [address] [facility] Blood venous Normal Sodium 141 mmol/L 135-146 mmo l/L Final [facility]: [address] [facility] Blood venous Normal Potassium 5.2 mmol/L 3.5-5.3 mmol/L Final [facility]: [address] [facility] Blood venous Normal Chloride 104 mmol/L 98-110 mm ol/L [facility]: [address] [facility] Blood venous Normal Carbon Dioxide 30 mmol/L 20-3 2 mmol/L [facility]: [address] [facility] Blood venous Normal Calcium 9.0 mg/dL 8.6-10.4 mg /dL Final [facility]: [address] [facility] Blood venous Normal Phosphate (as Phosphorus) 4.0 mg/dL 2.5-4.5 mg/dL [facility]: [address] [facility] Blood venous Normal Albumin 3.9 g/dL 3.6-5.1 g/dL [facility]: [address] [facility] Lyme Disease Ab W/refl Ia (IgG,IgM) Blood venous Lyme Ab, Screen <=0.90 index <=0.90 index Final [facility]: [address] [facility] CBC W/ Auto Diff Blood venous Normal White Bl ood Cell Count 10.1 thousand/uL 3.8-10.8 thousand/uL Final [facility]: [address] [facility] Blood venous Normal Red Blood Cell Count 3.9 2 million/uL 3.80-5.10 million/uL [facility]: [address] [facility] Blood venous Low Hemoglobin 11.3 g/dL 11.7-15. 5 g/dL [facility]: [address] [facility] Blood venous Normal Hematocrit 35.0 % 35.0-45.0 % [facility]: [address] [facility] Blood venous Normal Mcv 89.3 fL 80.0-100.0 fL Fi [facility]: [address] [facility] Blood venous Normal Mch 28.8 pg 27.0-33.0 pg Fin al [facility]: [address] [facility] Blood venous Normal Mchc 32.3 g/dL 32.0-36.0 g/dL [facility]: [address] [facility] Blood venous Normal Rdw 14.0 % 11.0-15.0 % [facility]: [address] [facility] Blood venous Normal Platelet Count 348 thous and/uL 140-400 thousand/uL [facility]: [address] [facility] Blood venous Normal Mpv 10.8 fL 7.5-12.5 fL [facility]: [address] [facility] Blood venous Normal Absolute Neutrophils 640 3 cells/uL 9930-7840 cells/uL [facility]: [address] [facility] Blood venous Normal Absolute Lymphocytes 292 9 cells/uL 850-3900 cells/uL [facility]: [address] [facility] Blood venous Normal Absolute Monocytes 465 c ells/uL 200-950 cells/uL [facility]: [address] [facility] Blood venous Normal Absolute Eosinophils 232 cells/uL 15-500 cells/uL [facility]: [address] [facility] Blood venous Normal Absolute Basophils 71 ce lls/uL 0-200 cells/uL [facility]: [address] [facility] Blood venous Normal Neutrophils 63.4 % 38-80 % Fi [facility]: [address] [facility] Blood venous Normal Lymphocytes 29.0 % 15-49 % Fi [facility]: [address] [facility] Blood venous Normal Monocytes 4.6 % 0-13 % [facility]: [address] [facility] Blood venous Normal Eosinophils 2.3 % 0-8 % Fin [facility]: [address] [facility] Blood venous Normal Basophils 0.7 % 0-2 % [facility]: [address] [facility] HONEY (Antinuclear Antibodies) Screen, Serum Blood venous Normal anachoice(R) Screen negative negative Final [facility]: [address] [facility] HbA1C (Hemoglobin a1C), Blood Blood venous High Hemoglobin a1C 9.9 % of total HGB <5.7 % of total HGB Final [facility]: [address] Past Encounters 01/25/2021 Minimal Cognitive Impairment; Morbid Obesity; Type 2 Diabetes Mellitus; Immunization Advised; Body Mass Index 40+ - Severely Obese; Essential Hypertension Clotilde Carroll MD: [address] [place] [phone], Ph. 12/29/2020 Administration of SARS-CoV-2 Antigen Vaccine Vidal Urias MD: [address] [place] [phone], Ph. 12/01/2020 Exposure to SARS-CoV-2 Vidal Urias MD: [address] [place] [phone], Ph. 12/01/2020 Administration of SARS-CoV-2 Antigen Vaccine Vidal Urias MD: [address] [place] [phone], Ph. 10/10/2020 Clotilde Carroll MD: [address] [place] [phone], Ph. 10/03/2020 Adult Health Examination; Body Mass Index 40+ - Severely Obese; Type 2 Diabetes Mellitus; Hyperlipidemia; Chronic Kidney Disease Stage 3; Arthritis Clotilde Carroll MD: [address] [place] [phone], Ph. 09/16/2020 Body Mass Index 40+ - Severely Obese; Candidiasis of Skin Clotilde Carroll MD: [address] [place] [phone], Ph. 06/27/2020 Type 2 Diabetes Mellitus; Hyperlipidemia; Morbid Obesity; Chronic Kidney Disease Stage 3; Vitamin D Deficiency; Nasal Congestion; Exposure to SARS-CoV-2; Screening for Osteoporosis Clotilde Carroll MD: [address] [place] [phone], Ph. 06/24/2020 Xiao Barajas [facility]: [address] [place] [address], Ph. 06/17/2020 Acute Sinusitis; Type 2 Diabetes Mellitus; Nonproliferative Retinopathy Due to Diabetes Mellitus; Hyperlipidemia; Chronic Kidney Disease Stage 3; Morbid Obesity; Coronary Arteriosclerosis Clotilde Carroll MD: [address] [place] [address], Ph. Social History Tobacco Smoking Status Never [...] Imaging None recorded. Vitals 01/25/2021 11:00AM ESTABLISHED [id number] Height Weight BMI Blood Pressure 64 in 245 lbs 16 oz 42.2 kg/m2 130/84 mm[Hg] 10/10/2020 10:30AM NURSE LAB COLLECTION Height 64 in 10/03/2020 09:40AM ANNUAL EXAM Height Weight BMI Blood Pressure 64 in 248 lbs 9.6 oz 42.7 kg/m2 127/82 mm[Hg ] 09/16/2020 02:20PM ESTABLISHED [id number] Height Weight BMI Blood Pressure 64 in 248 lbs 16 oz 42.7 kg/m2 120/82 mm[Hg] 06/27/2020 04:00PM ESTABLISHED [id number] Height Weight BMI Blood Pressure 64 in 252 lbs 3.2 oz 43.3 kg/m2 145/86 mm[Hg ] 06/17/2020 11:20AM ESTABLISHED [id number] Height Weight BMI Blood Pressure 64 in [...]
--- OUTSIDE RECORDS SUMMARY | 2021-03-15 17:54 | CCD ---
Author Organization Unknown Address [address] [place] [address] Phone [phone] Care Team Providers Care Manager Quality Compliance Name Role Phone XAVI PICHARDO MD 82 [phone] [facility] 118 [phone] [facility] [place] 119 [phone] [facility] 129 [phone] [facility] 212 [phone] CLOTILDE CARROLL MD 3 [phone] Allergies Code Code System Name Reaction Severity Status Onset 0174356 RxNorm Trulicity Active Medications Name Status Start [...] 07/28/2015 Hi story Sinusitis Unknown 05/08/2016 History Inflammatory Disorder of Extremity Unknown 08/14/2016 History Dizziness and Giddiness Active [...] imen Nasopharyngeal Normal Sars-cov-2 negative negative Final [facility]: 238 [facility] 07/03/2020 SARS CoV 2 RNA, QL, Nasopharynx NASOPHARYNX No observation recorded. [facility]: 830 [facility] 06/27/2020 SARS CoV 2 RdRp Gene, QL Probe, Respiratory Spec imen Nasopharyngeal Normal Sars-cov-2 negative negative Final [facility]: 238 [facility] 06/24/2020 Vitamin D, 25-Hydroxy, Total, Serum Blood venous No observation recorded. [facility] (Lab): 8[address] [facility] 06/24/2020 CMP, Serum or Plasma Blood venous No observa tion recorded. [facility] (Lab): 830 [facility] 06/24/2020 Lipid Panel, Serum Blood venous No observation recorded. [facility] (Lab): 0 [facility] 06/24/2020 CMP, Serum or Plasma High Glucose, Fastin g 191 mg/dL 70-100 mg/dL Final [facility]: 83 0 [facility] High Blood Urea Nitrogen 19 mg/dL 7-18 mg /dL [facility]: 0 [facility] High Creatinine for GFR 1.38 mg/dL 0.55-1 .30 mg/dL [facility]: 0 [facility] Low Glomerular Filtration Rate 41.8 >5 1 [facility]: 8[address] [facility] Normal Sodium Level 143 mEq/L 136-145 mEq/L [facility]: 830 [facility] Normal Potassium Serum 4.4 mEq/L 3.5-5.1 mE q/L [facility]: 830 [facility] High Chloride Level 109 mEq/L 98-107 mEq/ L [facility]: 830 [facility] Normal Carbon Dioxide Level 28 mEq/L 21-32 mEq/L [facility]: 0 [facility] Low Anion Gap 6 mEq/L 8-16 mEq/L [facility]: 830 [facility] Normal Calcium Level 8.9 mg/dL 8.5-10.1 mg/ dL [facility]: 830 [facility] Normal AST/SGOT 11 U/L 7-37 U/L [facility]: 830 [facility] Normal ALT/SGPT 29 U/L 12-78 U/L [facility]: 830 [facility] High Alkaline Phosphatase 138 U/L 45-117 U/L [facility]: 830 [facility] Normal Bilirubin,total 0.2 mg/dL 0.2-1.0 mg /dL [facility]: 830 [facility] Normal Total Protein 6.9 gm/dL 6.4-8.2 gm/d L [facility]: 830 [facility] Normal Albumin 3.5 gm/dL 3.2-5.2 gm/dL [facility]: 830 [facility] Low Albumin/globulin Ratio 1.0 1.2-2. 2 [facility]: 830 [facility] 06/24/2020 Lipid Panel, Blood High Triglycerides Lev el 373 mg/dL <150 mg/dL [facility]: 83 0 [facility] High Cholesterol Level 216 mg/dL <200 mg/ dL [facility]: 830 [facility] Normal HDL Cholesterol 45 mg/dL >40 mg/dL F inal [facility]: 830 [facility] Normal LDL Cholesterol 96 mg/dL <100 mg/dL [facility]: 830 [facility] Normal Non-hdl-c 171 mg/dL [facility]: 830 [facility] Normal Cholesterol Risk Ratio 4.800 <5 [facility]: 830 [facility] 06/24/2020 Vitamin D, 25-Hydroxy, Total, Serum Low Total 25(Oh) Vitamin D 28.2 NG/mL 30.0-100.0 NG/mL [facility] nter: 830 [facility] 06/17/2020 Hemoglobin a1C, Fingerstick ABNORMAL Hba1C 9.8 % Final [facility]: 238 [facility] Lipid Panel, Serum Blood venous Normal Cholesterol, T otal 179 mg/dL <200 mg/dL Final [facility]: 875 [facility] Blood venous Low HDL Cholesterol 37 mg/dL > or = 50 mg/dL Final [facility]: 875 [facility] Blood venous High Triglycerides 380 mg/dL <150 mg/dL Final [facility]: 875 [facility] Blood venous Normal LDL-cholesterol 91 mg/dL (pino c) Final [facility]: 875 [facility] Blood venous Normal Chol/hdlc Ratio 4.8 (calc) <5 .0 (calc) Final [facility]: 875 [facility] Blood venous High Non HDL Cholesterol 142 mg/dL (calc) <130 mg/dL (calc) Final [facility]: 8[address] [facility] Microalbumin/creatinine, Mass Ratio, Urine Blood venous N ormal Creatinine, Random Urine 48 mg/dL 20-275 mg/dL Final [facility]: 875 [facility] Blood venous Normal Albumin, Urine 4.6 mg/dL see note: mg/dL Final [facility]: 875 [facility] Blood venous High Albumin/creatin ine Ratio, Random Urine 96 mcg/mg creat <30 mcg/mg creat Final [facility]: [address] [place] [facility] Renal Function Panel, Serum Blood venous High Gluco se 225 mg/dL 65-99 mg/dL Final [facility]: 875 [facility] Blood venous High Urea Nitrogen (BUN) 26 mg/dL 7-25 mg/dL Final [facility]: 875 [facility] Blood venous High Creatinine 1.39 mg/dL 0.50-1. 05 mg/dL [facility]: 875 [facility] Blood venous Low eGFR Non-afr. Cameroonian 4 2 mL/min/1.73m2 > or = 60 mL/min/1.73m2 Final [facility]: 8[address] [facility] Blood venous Low eGFR 48 mL/min/1.73m2 > or = 60 mL/min/1.73m2 Final [facility]: 8[address] [facility] Blood venous Normal BUN/creatinine Ratio 19 (calc ) 6-22 (calc) Final [facility]: 875 [facility] Blood venous Normal Sodium 141 mmol/L 135-146 mmo l/L Final [facility]: 875 [facility] Blood venous Normal Potassium 5.2 mmol/L 3.5-5.3 mmol/L Final [facility]: 875 [facility] Blood venous Normal Chloride 104 mmol/L 98-110 mm ol/L Final [facility]: 875 [facility] Blood venous Normal Carbon Dioxide 30 mmol/L 20-3 2 mmol/L [facility]: 875 [facility] Blood venous Normal Calcium 9.0 mg/dL 8.6-10.4 mg /dL Final [facility]: 875 [facility] Blood venous Normal Phosphate (as Phosphorus) 4.0 mg/dL 2.5-4.5 mg/dL Final [facility]: [address] [place] [facility] Blood venous Normal Albumin 3.9 g/dL 3.6-5.1 g/dL [facility]: 8[address] [facility] Lyme Disease Ab W/refl Ia (IgG,IgM) Blood venous Lyme Ab, Screen <=0.90 index <=0.[address] [facility]: 875 [facility] CBC W/ Auto Diff Blood venous Normal White Bl ood Cell Count 10.1 thousand/uL 3.8-10.8 thousand/uL Final [facility]: 875 [facility] Blood venous Normal Red Blood Cell Count 3.9 2 million/uL 3.80-5.10 million/uL [facility]: 875 [facility] Blood venous Low Hemoglobin 11.3 g/dL 11.7-15. 5 g/dL [facility]: 875 [facility] Blood venous Normal Hematocrit 35.0 % 35.0-45.0 % [facility]: 8[address] [facility] Blood venous Normal Mcv 89.3 fL 80.0-100.0 fL Fi [facility]: 875 [facility] Blood venous Normal Mch 28.8 pg 27.0-33.0 pg Fin [facility]: 875 [facility] Blood venous Normal Mchc 32.3 g/dL 32.0-36.0 g/dL [facility]: 8[address] [facility] Blood venous Normal Rdw 14.0 % 11.0-15.0 % [facility]: 8[address] [facility] Blood venous Normal Platelet Count 348 thous and/uL 140-400 thousand/uL [facility]: 875 [facility] Blood venous Normal Mpv 10.8 fL 7.5-12.5 fL [facility]: 875 [facility] Blood venous Normal Absolute Neutrophils 640 3 cells/uL 7852-7713 cells/uL [facility]: 875 [facility] Blood venous Normal Absolute Lymphocytes 292 9 cells/uL 850-3900 cells/uL [facility]: 875 [facility] Blood venous Normal Absolute Monocytes 465 c ells/uL 200-950 cells/uL [facility]: 875 [place] [facility] Blood venous Normal Absolute Eosinophils 232 cells/uL 15-500 cells/uL [facility]: 875 [place] [facility] Blood venous Normal Absolute Basophils 71 ce lls/uL 0-200 cells/uL [facility]: 8[address] [facility] Blood venous Normal Neutrophils 63.4 % 38-80 % Fi [facility]: 8[address] [facility] Blood venous Normal Lymphocytes 29.0 % 15-49 % Fi [facility]: 875 [facility] Blood venous Normal Monocytes 4.6 % 0-13 % [facility]: 8[address] [facility] Blood venous Normal Eosinophils 2.3 % 0-8 % Fin [facility]: 8[address] [facility] Blood venous Normal Basophils 0.7 % 0-2 % [facility]: 8[address] [facility] HONEY (Antinuclear Antibodies) Screen, Serum Blood venous Normal anachoice(R) Screen negative negative Final [facility]: [address] [place] [facility] HbA1C (Hemoglobin a1C), Blood Blood venous High Hemoglobin a1C 9.9 % of total HGB <5.7 % of total HGB Final [facility]: [address] [facility] Encounters 01/25/2021 Minimal Cognitive Impairment; Morbid Obesity; Type 2 Diabetes Mellitus; Immunization Advised; Body Mass Index 40+ - Severely Obese; Essential Hypertension Clotilde Carroll MD: [address] [place] [address], Ph. 12/29/2020 SARS-CoV-2 Vaccination Vidal Urias MD: [address] [place] [phone], Ph. 12/01/2020 Exposure to SARS-CoV-2 Vidal Urias MD: [address] [place] [phone], Ph. 12/01/2020 SARS-CoV-2 Vaccination Vidal Urias MD: [address] [place] [phone], Ph. 10/10/2020 Clotilde Carroll MD: [address] [place] [phone], Ph. 10/03/2020 Adult Health Examination; Body Mass Index 40+ - Severely Obese; Type 2 Diabetes Mellitus; Hyperlipidemia; Chronic Kidney Disease Stage 3; Arthritis Clotilde Carroll MD: [address] [place] [phone], Ph. 09/16/2020 Body Mass Index 40+ - Severely Obese; Candidiasis of Skin Clotilde Carroll MD: [address] [place] [address], Ph. 06/27/2020 Type 2 Diabetes Mellitus; Hyperlipidemia; Morbid Obesity; Chronic Kidney Disease Stage 3; Vitamin D Deficiency; Nasal Congestion; Exposure to SARS-CoV-2; Screening for Osteoporosis Clotilde Carroll MD: [address] [place] [phone], Ph. 06/24/2020 Xiao Barajas [facility]: [address] [place] [address], Ph. 06/17/2020 Acute Sinusitis; Type 2 Diabetes Mellitus; Nonproliferative Retinopathy Due to Diabetes Mellitus; Hyperlipidemia; Chronic Kidney Disease Stage 3; Morbid Obesity; Coronary Arteriosclerosis Clotilde Carroll MD: [address] [place] [address], Ph. Social History Tobacco Smoking Status Never Smoker Vaccine List Vaccine Type COVID-19, mRNA, LNP-S, PF, 100 mcg/0.5 m L dose .5 mL .5 mL Influenza, injectable, MDCK, preservativ e free, quadrivalent 06/17/20180.5 mL influenza, injectable, quadrivalent, pre servative free .5 mL pneumococcal polysaccharide PPV23 .5 mL Plan of Care Reminders Provider Appointments None recorded. Lab None recorded. Referral None recorded. Procedures None recorded. Surgeries None recorded. Imaging None recorded. Vitals 01/25/2021 11:00AM ESTABLISHED [id number] Height Weight BMI Blood Pressure 64 in 245 lbs 16 oz 42.2 kg/m2 130/84 mm[Hg] 10/10/2020 10:30AM NURSE LAB COLLECTION Height 64 in 10/03/2020 09:40AM ANNUAL EXAM Height Weight BMI Blood Pressure 64 in 248 lbs 9.6 oz 42.7 kg/m2 127/82 mm[Hg ] 09/16/2020 02:20PM ESTABLISHED [id number] Height Weight BMI Blood Pressure 64 in 248 lbs 16 oz 42.7 kg/m2 120/82 mm[Hg] 06/27/2020 04:00PM ESTABLISHED [id number] Height Weight BMI Blood Pressure 64 in 252 lbs 3.2 oz 43.3 kg/m2 145/86 mm[Hg ] 06/17/2020 11:20AM ESTABLISHED [id number] Height Weight BMI Blood Pressure 64 in [...]
--- OUTSIDE RECORDS SUMMARY | 2021-03-15 17:54 | CCD | Continuity of Care Document ---
Author Author Martha FREITAS PA-C Organization Unknown Address [address] [address] Phone [phone] Care Team Providers Care Dean Of Women Name Role Phone Vidal Urias MD AUTM [phone] Kourtney Hall AUTM [phone] Problems Active Problems Provider Date Type 2 [...] 01/23/2021 Inject/Drain Joint/Bursa Major C ompleted 01/11/2021 18389 Office/Outpatient Established Mo d MDM 30-39 Min Completed 01/11/2021 43238 Inject/Drain Joint/Bursa Small C ompleted 01/06/2021 Inject/Drain Joint/Bursa Major C ompleted 12/22/2020 05326 Office/Outpatient New Moderate M DM 45-59 Minutes Completed 12/22/2020 12246 Needle Electromyography For Guid ance Completed 12/22/2020 62900 X-Ray Spine Cervical 6 Or More V iews Completed 12/22/2020 68470 Chemodenervation Of Muscles Inne rvated By Facial Nerves Completed 12/13/2020 53950 Office/Outpatient Established Lo w MDM 20-29 Min Completed 12/13/2020 44395 X-Ray Hand Three Views Completed 12/13/202045582 Inject/Drain Joint/Bursa Major C ompleted Medical Devices Description No Information Available Encounters Type Date Location Provider Dx Diagnosis Office Visit 12/22/2020 1:30p [place] Dave Alexander MD G43.709 Chronic migraine w/o aura, not intractable, w/o stat migr G24.3 Spasmodic torticollis M54.2 Cervicalgia G56.03 Carpal tunnel syndrome, bila teral upper limbs Office Visit 12/13/2020 11:00a [facility] Wyatt Freitas PA-C M1 7.0 Bilateral primary [...] 11:15 am - Wyatt Freitas PA-C at [facility] * 01/30/2021 10:45 am - Wyatt Freitas PA-C at [place] * 02/02/2021 8:00 am - Dave Alexander MD at [facility] 01/23/2021 - Wyatt Freitas PA-C* M17.0 Bilateral primary osteoarthritis of knee Functional Status Description No Information Available Mental Status Description No Information Available Referrals Refer to Reason for Referral Status Appt Date Wyatt Freitas PA-C 11/15/20 Euflexxa Donald Knee, N o auth req per ins based on medical necessity, passed to schedulers sw. CAN NOT HAVE TILL 01/07/21. Created [address] [place] [address] [address] [place] [address] [phone] Dave Alexander MD BOTOX NO AUTH REQUIRED TO SCHEDULING NT Cre ated [address] [place] [address], [address] [place] [address] [phone]
--- OUTSIDE RECORDS SUMMARY | 2021-03-15 17:56 | CCD ---
Author Author [facility] Organization [facility] Address Unknown Phone Unavailable Support Name Relationship Address Phone Xiao Larios Next Of Kin [address] [place] [address] Gladys Najera Next Of Kin Unknown Unavailable MARTHA MIRANDA Next Of Kin [address] [place] [address] Unavailable NONE, NONE Next Of Kin Unknown Unavailable NATALIEFOM, [place] [address] Connie Verdugo Next Of Kin [address] [place] [address] ALEXANDER BAUTISTA Next Of Kin [place] [id number] YIN RUTLEDGE Next Of Kin [address] [place] [address] Vidal Urias MD Next Of Kin [address] [place] [address] DISABLED Next Of Kin Unknown Unavailable GLADYS NAJERA Next Of Kin [address] [facility] [address] [place] [address] [place] [address] ISAEL NAJERA Next Of Kin [address] [place] [id number] UE Next Of Kin Unknown Unavailable CAPC HEADSTART Next Of Kin [address] [place] [id number] SHADI MIRANDA Next Of Kin Unknown CAPCHEAD Next Of Kin [address] [place], [place] [id number] MIRANDACINDY Knott Next Of Kin [address] [place] [address] [place] [address] Unavailable Gladys Najera ECON Unknown Care Team Providers Care Manager Federal Name Role Phone Kocan, J Zuhair MUSHROOM GROWING SUPERVISOR Unavailable Unavailable Kocan, J Zuhair MUSHROOM GROWING SUPERVISOR Unavailable Unavailable Kocan, J Zuhair MUSHROOM GROWING SUPERVISOR Unavailable Unavailable Kocan, J Zuhair MUSHROOM GROWING SUPERVISOR Unavailable Unavailable Kocan, J Zuhair MUSHROOM GROWING SUPERVISOR Unavailable Unavailable Kocan, J Zuhair MUSHROOM GROWING SUPERVISOR Unavailable Unavailable Kocan, J Zuhair MUSHROOM GROWING SUPERVISOR Unavailable Unavailable Kocan, J Zuhair MUSHROOM GROWING SUPERVISOR Unavailable Unavailable Kocan, J Zuhair MUSHROOM GROWING SUPERVISOR Unavailable Unavailable Kocan, J Zuhair MUSHROOM GROWING SUPERVISOR Unavailable Unavailable Kocan, J Zuhair MUSHROOM GROWING SUPERVISOR Unavailable Unavailable Kocan, J Zuhair MUSHROOM GROWING SUPERVISOR Unavailable Unavailable Kocan, J Zuhair MUSHROOM GROWING SUPERVISOR Unavailable Unavailable Harjinder Urias MD Unavailable Unavailable Harjinder Urias MD Unavailable Unavailable Harjinder Urias MD Unavailable Unavailable Harjinder Urias MD Unavailable Unavailable Harjinder Urias MD Unavailable Unavailable Harjinder Urias MD Unavailable Unavailable Harjinder Urias MD Unavailable Unavailable Harjinder Urias MD Unavailable Unavailable Harjinder Urias MD Unavailable Unavailable Harjinder Urias MD Unavailable Unavailable Harjinder Urias MD Unavailable Unavailable Harjinder Urias MD Unavailable Unavailable Harjinder Urias MD Unavailable Unavailable Harjinder Urias MD Unavailable Unavailable Harjinder Urias MD Unavailable Unavailable Harjinder Urias MD Unavailable Unavailable Harjinder Urias MD Unavailable Unavailable Harjinder Urias MD Unavailable Unavailable Harjinder Urias MD Unavailable Unavailable Harjinder Urias MD Unavailable Unavailable Harjinder Urias MD Unavailable Unavailable Harjinder Urias MD Unavailable Unavailable Harjinder Urias MD Unavailable Unavailable Harjinder Urias MD Unavailable Unavailable Harjinder Urias MD Unavailable Unavailable Harjinder Urias MD Unavailable Unavailable Harjinder Urias MD Unavailable Unavailable Harjinder Urias MD Unavailable Unavailable Harjinder Urias MD Unavailable Unavailable Harjinder Urias MD Unavailable Unavailable Harjinder Urias MD Unavailable Unavailable Harjinder Urias MD Unavailable Unavailable Harjinder Urias MD Unavailable Unavailable Harjinder Urias MD Unavailable Unavailable Harjinder Urias MD Unavailable Unavailable Harjinder Urias MD Unavailable Unavailable Harjinder Urias MD Unavailable Unavailable Harjinder Urias MD Unavailable Unavailable Harjinder Urias MD Unavailable Unavailable Harjinder Urias MD Unavailable Unavailable Harjinder Urias MD Unavailable Unavailable Harjinder Urias MD Unavailable Unavailable Harjinder Urisa MD Unavailable Unavailable Harjinder Urias MD Unavailable Unavailable Harjinder Urias MD Unavailable Unavailable UriasHarjinder MD Unavailable Unavailable UriasHarjinder MD Unavailable Unavailable UriasHarjinder MD Unavailable Unavailable UriasHarjinder MD Unavailable Unavailable Harjinder Urias MD Unavailable Unavailable Harjinder Urias MD Unavailable Unavailable Harjinder Urias MD Unavailable Unavailable Harjinder Urias MD Unavailable Unavailable Harjinder Urias MD Unavailable Unavailable Harjinder Urias MD Unavailable Unavailable Harjinder Urias MD Unavailable Unavailable UriasHarjinder MD Unavailable Unavailable Urias, Harjinder Drake MD Unavailable Unavailable UriasHarjinder MD Unavailable Unavailable UriasHarjinder MD Unavailable Unavailable UriasHarjinder MD Unavailable Unavailable Harjinder Urias MD Unavailable Unavailable Harjinder Urias MD Unavailable Unavailable Harjinder Urias MD Unavailable Unavailable Harjinder Urias MD Unavailable Unavailable UriasHarjinder MD Unavailable Unavailable Urias, Harjinder Drake MD Unavailable Unavailable Harjinder Urias MD Unavailable Unavailable Adonay, Harjinder Drake MD Unavailable Unavailable Harjinder Urias MD Unavailable Unavailable Harjinder Urias MD Unavailable Unavailable Harjinder Urias MD Unavailable Unavailable Harjinder Urias MD Unavailable Unavailable Harjinder Urias MD Unavailable Unavailable Harjinder Urias MD Unavailable Unavailable Harjinder Urias MD Unavailable Unavailable Harjinder Urias MD Unavailable Unavailable Harjinder Urias MD Unavailable Unavailable Harjinder Urias MD Unavailable Unavailable Harjinder Urias MD Unavailable Unavailable Harjinder Urias MD Unavailable Unavailable Harjinder Urias MD Unavailable Unavailable Harjinder Urias MD Unavailable Unavailable Harjinder Urias MD Unavailable Unavailable Harjinder Urias MD Unavailable Unavailable Harjinder Urias MD Unavailable Unavailable Harjinder Urias MD Unavailable Unavailable Harjinder Urias MD Unavailable Unavailable Harjinder Urias MD Unavailable Unavailable Harjinder Urias MD Unavailable Unavailable Harjinder Urias MD Unavailable Unavailable Harjinder Urias MD Unavailable Unavailable Harjinder Urias MD Unavailable Unavailable Connie Arroyo MATERIAL HANDLER 2ND SHIFT MATERIAL HANDLER 2ND SHIFT Unavailable Unavailable Xiao Barajas MATERIAL HANDLER 2ND SHIFT MATERIAL HANDLER 2ND SHIFT Unavailable Unavailable Meche, Rimma Unavailable Unavailable Meche, Rimma Unavailable Unavailable Meche, Rimma Unavailable Unavailable Meche, Rimma Unavailable Unavailable Meche, Rimma Unavailable Unavailable Meche, Rimma Unavailable Unavailable Meche, Rimma Unavailable Unavailable Meceh, Rimma Unavailable Unavailable Meche, Rimma Unavailable Unavailable Meche, Rimma Unavailable Unavailable Meche, Rimma Unavailable Unavailable Meche, Rimma Unavailable Unavailable Meche, Rimma Unavailable Unavailable Meche, Rimma Unavailable Unavailable Meche, Rimma Unavailable Unavailable Meche, Rimma Unavailable Unavailable Meche, Rimma Unavailable Unavailable Meche, Rimma Unavailable Unavailable Meche, Rimma Unavailable Unavailable Meche, Rimma Unavailable Unavailable Meche, Rimma Unavailable Unavailable Meche, Rimma Unavailable Unavailable Meche, Rimma Unavailable Unavailable Meche, Rimma Unavailable Unavailable Meche, Rimma Unavailable Unavailable Meche, Rimma Unavailable Unavailable Meche, Rimma Unavailable Unavailable El-Khally, A Ziad MD Unavailable Unavailable El-Khally, A Ziad MD Unavailable Unavailable El-Khally, A Ziad MD Unavailable Unavailable El-Khally, A Ziad MD Unavailable Unavailable El-Khally, A Ziad MD Unavailable Unavailable El-Khally, A Ziad MD Unavailable Unavailable El-Khally, A Ziad MD Unavailable Unavailable El-Khally, A Ziad MD Unavailable Unavailable El-Khally, A Ziad MD Unavailable Unavailable El-Khally, A Ziad MD Unavailable Unavailable El-Khally, A Ziad MD Unavailable Unavailable El-Khally, A Ziad MD Unavailable Unavailable El-Khally, A Ziad MD Unavailable Unavailable El-Khally, A Ziad MD Unavailable Unavailable El-Khally, A Ziad MD Unavailable Unavailable El-Khally, A Ziad MD Unavailable Unavailable El-Khally, A Ziad MD Unavailable Unavailable El-Khally, A Ziad MD Unavailable Unavailable El-Khally, A Ziad MD Unavailable Unavailable El-Khally, A Ziad MD Unavailable Unavailable El-Khally, A Ziad MD Unavailable Unavailable El-Khally, A Ziad MD Unavailable Unavailable El-Khally, A Ziad MD Unavailable Unavailable El-Khally, A Ziad MD Unavailable Unavailable El-Khally, A Ziad MD Unavailable Unavailable El-Khally, A Ziad MD Unavailable Unavailable El-Khally, A Ziad MD Unavailable Unavailable El-Khally, A Ziad MD Unavailable Unavailable El-Khally, A Ziad MD Unavailable Unavailable El-Khally, A Ziad MD Unavailable Unavailable El-Khally, A Ziad MD Unavailable Unavailable El-Khally, A Ziad MD Unavailable Unavailable El-Khally, A Ziad MD Unavailable Unavailable El-Khally, A Ziad MD Unavailable Unavailable El-Khally, A Ziad MD Unavailable Unavailable El-Khally, A Ziad MD Unavailable Unavailable El-Khally, A Ziad MD Unavailable Unavailable El-Khally, A Ziad MD Unavailable Unavailable El-Khally, A Ziad MD Unavailable Unavailable El-Khally, A Ziad MD Unavailable Unavailable El-Khally, A Ziad MD Unavailable Unavailable El-Khally, A Ziad MD Unavailable Unavailable El-Khally, A Ziad MD Unavailable Unavailable MAJAK, R LUIS ALBERTO DPM Unavailable Unavailable MAJAK, R LUIS ALBERTO DPM Unavailable Unavailable MAJAK, R LUIS ALBERTO DPM Unavailable Unavailable MAJAK, R LUIS ALBERTO DPM Unavailable Unavailable MAJAK, R LUIS ALBERTO DPM Unavailable Unavailable MAJAK, R LUIS ALBERTO DPM Unavailable Unavailable MAJAK, R LUIS ALBERTO DPM Unavailable Unavailable MAJAK, R LUIS ALBERTO DPM Unavailable Unavailable MAJAK, R LUIS ALBERTO DPM Unavailable Unavailable MAJAK, R LUIS ALBERTO DPM Unavailable Unavailable MAJAK, R LUIS ALBERTO DPM Unavailable Unavailable MAJAK, R LUIS ALBERTO DPM Unavailable Unavailable MAJAK, R LUIS ALBERTO DPM Unavailable Unavailable MAJAK, R LUIS ALBERTO DPM Unavailable Unavailable MAJAK, R LUIS ALBERTO DPM Unavailable Unavailable MAJAK, R LUIS ALBERTO DPM Unavailable Unavailable MAJAK, R LUIS ALBERTO DPM Unavailable Unavailable MAJAK, R LUIS ALBERTO DPM Unavailable Unavailable MAJAK, R LUIS ALBERTO DPM Unavailable Unavailable MAJAK, R LUIS ALBERTO DPM Unavailable Unavailable MAJAK, R LUIS ALBERTO DPM Unavailable Unavailable MAJAK, R LUIS ALBERTO DPM Unavailable Unavailable MAJAK, R LUIS ALBERTO DPM Unavailable Unavailable MAJAK, R LUIS ALBERTO DPM Unavailable Unavailable MAJAK, R LUIS ALBERTO DPM Unavailable Unavailable MAJAK, R LUIS ALBERTO DPM Unavailable Unavailable MAJAK, R LUIS ALBERTO DPM Unavailable Unavailable MAJAK, R LUIS ALBERTO DPM Unavailable Unavailable MAJAK, R LUIS ALBERTO DPM Unavailable Unavailable MAJAK, R LUIS ALBERTO DPM Unavailable Unavailable MAJAK, R LUIS ALBERTO DPM Unavailable Unavailable MAJAK, R LUIS ALBERTO DPM Unavailable Unavailable KISHAN VAZ Unavailable Unavailable Lashell Freitas PA Unavailable Unavailable Lashell Freitas PA Unavailable Unavailable Lashell Freitas PA Unavailable Unavailable Lashell Freitas PA Unavailable Unavailable Lashell Freitas PA Unavailable Unavailable Lashell Freitas PA Unavailable Unavailable Lashell Freitas PA Unavailable Unavailable Lashell Freitas PA Unavailable Unavailable Lashell Freitasatt PA Unavailable Unavailable Lashell Freitasatt PA Unavailable Unavailable Lashell Freitas PA Unavailable Unavailable Lashell Freitas PA Unavailable Unavailable Freitas, M Barratt PA Unavailable Unavailable Freitas, M Barratt PA Unavailable Unavailable Freitas, M Barratt PA Unavailable Unavailable Freitas, M Barratt PA Unavailable Unavailable Freitas, M Barratt PA Unavailable Unavailable Freitas, M Barratt PA Unavailable Unavailable Freitas, M Barratt PA Unavailable Unavailable Freitas, M Barratt PA Unavailable Unavailable Freitas, M Barratt PA Unavailable Unavailable Freitas, M Barratt PA Unavailable Unavailable Freitas, M Barratt PA Unavailable Unavailable Freitas, M Barratt PA Unavailable Unavailable Freitas, M Barratt PA Unavailable Unavailable Freitas, M Barratt PA Unavailable Unavailable Freitas, M Barratt PA Unavailable Unavailable Freitas, M Barratt PA Unavailable Unavailable Freitas, M Barratt PA Unavailable Unavailable Jone, Yin PA Unavailable Unavailable [place], Yin PA Unavailable Unavailable [place], Yin PA Unavailable Unavailable Jone, Yin PA Unavailable Unavailable Jone, Yin PA Unavailable Unavailable Jone, Yin PA Unavailable Unavailable Jone, Yin PA Unavailable Unavailable [place], Yin PA Unavailable Unavailable Jone, Yin PA Unavailable Unavailable [place], Yin PA Unavailable Unavailable Jone, Yin PA Unavailable Unavailable [place], Yin PA Unavailable Unavailable [place], Yin PA Unavailable Unavailable [place], Yin PA Unavailable Unavailable [place], Yin PA Unavailable Unavailable [place], Yin PA Unavailable Unavailable [place], Yin PA Unavailable Unavailable [place], Yin PA Unavailable Unavailable [place], Yin PA Unavailable Unavailable Jone, Yin PA Unavailable Unavailable [place], Yin PA Unavailable Unavailable [place], Yin PA Unavailable Unavailable Jone, Yin PA Unavailable Unavailable Jone, Yin PA Unavailable Unavailable [place], Yin PA Unavailable Unavailable [place], Yin PA Unavailable Unavailable [place], Yin PA Unavailable Unavailable Ojne, Yin PA Unavailable Unavailable [place], Yin PA Unavailable Unavailable Jone, Yin PA Unavailable Unavailable [place], Yin PA Unavailable Unavailable Jone, Yin PA Unavailable Unavailable [place], Yin PA Unavailable Unavailable [place], Yin PA Unavailable Unavailable [place], Yin PA Unavailable Unavailable Kiara BarajasP Unavailable Unavailable Karl, A Xiao MATERIAL HANDLER 2ND SHIFT Unavailable Unavailable Karl, A Xiao MATERIAL HANDLER 2ND SHIFT Unavailable Unavailable Karl, A Xiao MATERIAL HANDLER 2ND SHIFT Unavailable Unavailable Karl, A Xiao MATERIAL HANDLER 2ND SHIFT Unavailable Unavailable Karl, A Xiao MATERIAL HANDLER 2ND SHIFT Unavailable Unavailable Karl, A Xiao MATERIAL HANDLER 2ND SHIFT Unavailable Unavailable Karl, A Xiao MATERIAL HANDLER 2ND SHIFT Unavailable Unavailable Karl, A Xiao MATERIAL HANDLER 2ND SHIFT Unavailable Unavailable Karl, A Xiao MATERIAL HANDLER 2ND SHIFT Unavailable Unavailable Karl, A Xiao MATERIAL HANDLER 2ND SHIFT Unavailable Unavailable Karl, A Xiao MATERIAL HANDLER 2ND SHIFT Unavailable Unavailable Karl, A Xiao MATERIAL HANDLER 2ND SHIFT Unavailable Unavailable Karl, A Xiao MATERIAL HANDLER 2ND SHIFT Unavailable Unavailable Karl, A Xiao MATERIAL HANDLER 2ND SHIFT Unavailable Unavailable Minster, A Xiao MATERIAL HANDLER 2ND SHIFT Unavailable Unavailable Minster, A Xiao MATERIAL HANDLER 2ND SHIFT Unavailable Unavailable Minster, A Xiao MATERIAL HANDLER 2ND SHIFT Unavailable Unavailable Karl, A Xiao MATERIAL HANDLER 2ND SHIFT Unavailable Unavailable Karl, A Xiao MATERIAL HANDLER 2ND SHIFT Unavailable Unavailable Minster, A Xiao MATERIAL HANDLER 2ND SHIFT Unavailable Unavailable Minster, A Xiao MATERIAL HANDLER 2ND SHIFT Unavailable Unavailable Minster, A Xiao MATERIAL HANDLER 2ND SHIFT Unavailable Unavailable Minster, A Xiao MATERIAL HANDLER 2ND SHIFT Unavailable Unavailable Minster, A Xiao MATERIAL HANDLER 2ND SHIFT Unavailable Unavailable Karl, A Xiao MATERIAL HANDLER 2ND SHIFT Unavailable Unavailable Minster, A Xiao MATERIAL HANDLER 2ND SHIFT Unavailable Unavailable Minster, A Xiao MATERIAL HANDLER 2ND SHIFT Unavailable Unavailable Minster, A Xiao MATERIAL HANDLER 2ND SHIFT Unavailable Unavailable Karl, A Xiao MATERIAL HANDLER 2ND SHIFT Unavailable Unavailable Karl, A Xiao MATERIAL HANDLER 2ND SHIFT Unavailable Unavailable Suma II, George PA Unavailable Unavailable Suma II, George PA Unavailable Unavailable Suma II, George PA Unavailable Unavailable Suma II, George PA Unavailable Unavailable Suma II, George PA Unavailable Unavailable Suma II, George PA Unavailable Unavailable Suma II, George PA Unavailable Unavailable Suma II, George PA Unavailable Unavailable Suma II, George PA Unavailable Unavailable Suma II, George PA Unavailable Unavailable Suma II, George PA Unavailable Unavailable Suma II, George PA Unavailable Unavailable Suma II, George PA Unavailable Unavailable Suma II, George PA Unavailable Unavailable Suma II, George PA Unavailable Unavailable Suma II, George PA Unavailable Unavailable Suma II, George PA Unavailable Unavailable Suma II, George PA Unavailable Unavailable Suma II, George PA Unavailable Unavailable Alexander, Dave Unavailable Unavailable Alexander, Dave Unavailable Unavailable Alexander, Dave Unavailable Unavailable Alexander, Dave Unavailable Unavailable Alexander, Dave Unavailable Unavailable Alexander, Dave Unavailable Unavailable Alexander, Dave Unavailable Unavailable Alexander, Dave Unavailable Unavailable Alexander, Dave Unavailable Unavailable Alexander, Dave Unavailable Unavailable Alexander, Dave Unavailable Unavailable Alexander, Dave Unavailable Unavailable Alexander, Dave Unavailable Unavailable Alexander, Dave Unavailable Unavailable Alexander, Dave Unavailable Unavailable Alexander, Dave Unavailable Unavailable Alexander, Dave Unavailable Unavailable Alexander, Dave Unavailable Unavailable Alexander, Dave Unavailable Unavailable Alexander, Dave Unavailable Unavailable Alexander, Dave Unavailable Unavailable Alexander, Dave Unavailable Unavailable Alexander, Dave Unavailable Unavailable Alexander, Dave Unavailable Unavailable Alexander, Dave Unavailable Unavailable Alexander, Dave Unavailable Unavailable Alexander, Dave Unavailable Unavailable Alexander, Dave Unavailable Unavailable Alexander, Dave Unavailable Unavailable Alexander, Dave Unavailable Unavailable Alexander, Dave Unavailable Unavailable Alexander, Dave Unavailable Unavailable Alexander, Dave Unavailable Unavailable Alexander, Dave Unavailable Unavailable Alexander, Dave Unavailable Unavailable Alexander, Dave Unavailable Unavailable Alexander, Dave Unavailable Unavailable Alexander, Dave Unavailable Unavailable Alexander, Dave Unavailable Unavailable Alexander, Dave Unavailable Unavailable Alexander, Dave Unavailable Unavailable Alexander, Dave Unavailable Unavailable Alexander, Dave Unavailable Unavailable Alexander, Dave Unavailable Unavailable Alexander, Dave Unavailable Unavailable Fish, B Angel KEITA Unavailable Unavailable Fish, B Angel KEITA Unavailable Unavailable Fish, B Angel KEITA Unavailable Unavailable Fish, B Angel KEITA Unavailable Unavailable Fish, B Angel KEITA Unavailable Unavailable Fish, B Angel KEITA Unavailable Unavailable Fish, B Angel KEITA Unavailable Unavailable Fish, B Angel KEITA Unavailable Unavailable Fish, B Angel KEITA Unavailable Unavailable Fish, B Angel KEITA Unavailable Unavailable Fish, B Angel KEITA Unavailable Unavailable Fish, B Angel KEITA Unavailable Unavailable Fish, Ana Ortiz MD Unavailable Unavailable Fish, Ana Ortiz MD Unavailable Unavailable Fish, Ana Ortiz MD Unavailable Unavailable Fish, Ana Ortiz MD Unavailable Unavailable Fish, Ana Ortiz MD Unavailable Unavailable Fish, Ana Ortiz MD Unavailable Unavailable Fish, Ana Ortiz MD Unavailable Unavailable Fish, Ana Ortiz MD Unavailable Unavailable Fish, Ana Ortiz MD Unavailable Unavailable Fish, Ana Ortiz MD Unavailable Unavailable Fish, B Angel KEITA Unavailable Unavailable Fish, B Angel KEITA Unavailable Unavailable Fish, B Angel KEITA Unavailable Unavailable Fish, Ana Ortiz MD Unavailable Unavailable Fish, Ana Ortiz MD Unavailable Unavailable Fish, Ana Ortiz MD Unavailable Unavailable Fish, Ana Ortiz MD Unavailable Unavailable Fish, Ana Ortiz MD Unavailable Unavailable Fish, Ana Ortiz MD Unavailable Unavailable Fish, Ana Ortiz MD Unavailable Unavailable Fish, B Angel KEITA Unavailable Unavailable Fish, Ana Ortiz MD Unavailable Unavailable Fish, Ana Ortiz MD Unavailable Unavailable Fish, B Angel KEITA Unavailable Unavailable Fish, B Angel KEITA Unavailable Unavailable Fish, B Angel KEITA Unavailable Unavailable Fish, B Angel KEITA Unavailable Unavailable Fish, B Angel KEITA Unavailable Unavailable Fish, B Angel KEITA Unavailable Unavailable Fish, B Angel KEITA Unavailable Unavailable Fish, B Angel KEITA Unavailable Unavailable Fish, B Angel KEITA Unavailable Unavailable Fish, B Angel KEITA Unavailable Unavailable Fish, B Angel KEITA Unavailable Unavailable Fish, B Angel KEITA Unavailable Unavailable Fish, B Angel KEITA Unavailable Unavailable Fish, B Angel KEITA Unavailable Unavailable Fish, B Angel KEITA Unavailable Unavailable Fish, B Angel KEITA Unavailable Unavailable Fish, B Angel KEITA Unavailable Unavailable Fish, B Angel KEITA Unavailable Unavailable Fish, B Angel KEITA Unavailable Unavailable Fish, B Angel KEITA Unavailable Unavailable Fish, B Angel KEITA Unavailable Unavailable LAKISHA, XAVI KEITA Unavailable Unavailable LAKISHA, XAVI KEITA Unavailable Unavailable LAKISHA, XAVI KEITA Unavailable Unavailable LAKISHA, XAVI KEITA Unavailable Unavailable LAKISHA, XAVI KEITA Unavailable Unavailable LAKISHA, XAVI KEITA Unavailable Unavailable LAKISHA, XAVI KEITA Unavailable Unavailable LAKISHA, XAVI KEITA Unavailable Unavailable LAKISHA, XAVI KEITA Unavailable Unavailable LAKISHA, XAVI KEITA Unavailable Unavailable LAKISHA, XAVI KEITA Unavailable Unavailable LAKISHA, XAVI KEITA Unavailable Unavailable LAKISHA, XAVI KEITA Unavailable Unavailable LAKISHA, XAVI KEITA Unavailable Unavailable LAKISHA, XAVI KEITA Unavailable Unavailable LAKISHA, XAVI KEITA Unavailable Unavailable LAKISHA, XAVI KEITA Unavailable Unavailable LAKISHA, XAVI KEITA Unavailable Unavailable LAKISHA, XAVI KEITA Unavailable Unavailable LAKISHA, XAVI KEITA Unavailable Unavailable LAKISHA, XAVI KEITA Unavailable Unavailable LAKISHA, XAVI KEITA Unavailable Unavailable LAKISHA, XAVI KEITA Unavailable Unavailable LAKISHA, XAVI KEITA Unavailable Unavailable LAKISHA, XAVI KEITA Unavailable Unavailable LAKISHA, XAVI KEITA Unavailable Unavailable LAKISHA, XAVI KEITA Unavailable Unavailable LAKISHA, XAVI KEITA Unavailable Unavailable LAKISHA, XAVI KEITA Unavailable Unavailable LAKISHA, XAVI KEITA Unavailable Unavailable LAKISHA, XAVI KEITA Unavailable Unavailable LAKISHA, XAVI KEITA Unavailable Unavailable LAKISHA, XAVI KEITA Unavailable Unavailable LAKISHA, XAVI KEITA Unavailable Unavailable LAKISHA, XAVI KEITA Unavailable Unavailable LAKISHA, XAVI KEITA Unavailable Unavailable LAKISHA, XAVI KEITA Unavailable Unavailable LAKISHA, XAVI KEITA Unavailable Unavailable LAKISHA, XAVI KEITA Unavailable Unavailable LAKISHA, XAVI KEITA Unavailable Unavailable LAKISHA, XAVI KEITA Unavailable Unavailable LAKISHA, XAVI KEITA Unavailable Unavailable LAKISHA, XAVI KEITA Unavailable Unavailable LAKISHA, XAVI KEITA Unavailable Unavailable LAKISHA, XAVI KEITA Unavailable Unavailable LAKISHA, XAVI KEITA Unavailable Unavailable LAKISHA, XAVI KEITA Unavailable Unavailable LAKISHA, XAVI KEITA Unavailable Unavailable LAKISHA, XAVI KEITA Unavailable Unavailable LAKISHA, XAVI KEITA Unavailable Unavailable LAKIHSA, XAVI KEITA Unavailable Unavailable LAKISHA, XAVI KEITA Unavailable Unavailable LAKISHA, XAVI KEITA Unavailable Unavailable LAKISHA, XAVI KEITA Unavailable Unavailable LAKISHA, XAVI KEITA Unavailable Unavailable Ali, Kourtney KEITA Unavailable Unavailable Ali, Kourtney MD Unavailable Unavailable Ali, Kourtney MD Unavailable Unavailable Ali, Kourtney MD Unavailable Unavailable Ali, Kourtney MD Unavailable Unavailable Ali, Kourtney MD Unavailable Unavailable Ali, Kourtney MD Unavailable Unavailable Ali, Kourtney MD Unavailable Unavailable Ali, Kourtney MD Unavailable Unavailable Ali, Kourtney MD Unavailable Unavailable Ali, Kourtney MD Unavailable Unavailable Ali, Kourtney MD Unavailable Unavailable Ali, Korutney MD Unavailable Unavailable Ali, Kuortney MD Unavailable Unavailable Ali, Kourtney MD Unavailable Unavailable Ali, Kourtney MD Unavailable Unavailable Ali, Kourtney MD Unavailable Unavailable Ali, Kourtney MD Unavailable Unavailable Ali, Kourtney MD Unavailable Unavailable Ali, Kourtney MD Unavailable Unavailable Ali, Kourtney MD Unavailable Unavailable Ali, Kourtney MD Unavailable Unavailable Ali, Kourtney MD Unavailable Unavailable Ali, Kourtney MD Unavailable Unavailable Ali, Kourtney MD Unavailable Unavailable Ali, Kourtney MD Unavailable Unavailable Ali, Kourtney MD Unavailable Unavailable Ali, Kourtney MD Unavailable Unavailable Ali, Kourtney MD Unavailable Unavailable Ali, Kourtney MD Unavailable Unavailable Ali, Kourtney MD Unavailable Unavailable Ali, Kourtney MD Unavailable Unavailable Ali, Kourtney MD Unavailable Unavailable Ali, Kourtney MD Unavailable Unavailable Ali, Kourtney MD Unavailable Unavailable Ali, Kourtney MD Unavailable Unavailable Ali, Kourtney MD Unavailable Unavailable Ali, Kourtney MD Unavailable Unavailable Ali, Kourtney MD Unavailable Unavailable Ali, Kourtney MD Unavailable Unavailable Ali, Kourtney MD Unavailable Unavailable Ali, Kourtney MD Unavailable Unavailable Ali, Kourtney Unavailable Unavailable Ali, Kourtney KEITA Unavailable Unavailable Ali, Kourtney KEITA Unavailable Unavailable Ali, Kourtney KEITA Unavailable Unavailable Ali, Kourtney MD Unavailable Unavailable Ali, Kourtney MD Unavailable Unavailable Ali, Kourtney MD Unavailable Unavailable Ali, Kourtney MD Unavailable Unavailable Ali, Kourtney MD Unavailable Unavailable Ali, Kourtney MD Unavailable Unavailable Karl, A Xiao MATERIAL HANDLER 2ND SHIFT Unavailable Unavailable Karl, A Xiao MATERIAL HANDLER 2ND SHIFT Unavailable Unavailable Karl, A Xiao MATERIAL HANDLER 2ND SHIFT Unavailable Unavailable Karl, A Xiao MATERIAL HANDLER 2ND SHIFT Unavailable Unavailable Karl, A Xiao MATERIAL HANDLER 2ND SHIFT Unavailable Unavailable Karl, A Xiao MATERIAL HANDLER 2ND SHIFT Unavailable Unavailable Karl, A Xiao MATERIAL HANDLER 2ND SHIFT Unavailable Unavailable Karl, A Xiao MATERIAL HANDLER 2ND SHIFT Unavailable Unavailable Karl, A Xiao MATERIAL HANDLER 2ND SHIFT Unavailable Unavailable Karl, A Xiao MATERIAL HANDLER 2ND SHIFT Unavailable Unavailable Karl, A Xiao MATERIAL HANDLER 2ND SHIFT Unavailable Unavailable Minster, A Xiao MATERIAL HANDLER 2ND SHIFT Unavailable Unavailable Minster, A Xiao MATERIAL HANDLER 2ND SHIFT Unavailable Unavailable Minster, A Xiao MATERIAL HANDLER 2ND SHIFT Unavailable Unavailable Minster, A Xiao MATERIAL HANDLER 2ND SHIFT Unavailable Unavailable Minster, A Xiao MATERIAL HANDLER 2ND SHIFT Unavailable Unavailable Minster, A Xiao MATERIAL HANDLER 2ND SHIFT Unavailable Unavailable Minster, A Xiao MATERIAL HANDLER 2ND SHIFT Unavailable Unavailable Minster, A Xiao MATERIAL HANDLER 2ND SHIFT Unavailable Unavailable Minster, A Xiao MATERIAL HANDLER 2ND SHIFT Unavailable Unavailable Minster, A Xiao MATERIAL HANDLER 2ND SHIFT Unavailable Unavailable Minster, A Xiao MATERIAL HANDLER 2ND SHIFT Unavailable Unavailable Minster, A Xiao MATERIAL HANDLER 2ND SHIFT Unavailable Unavailable Minster, A Xiao MATERIAL HANDLER 2ND SHIFT Unavailable Unavailable Minster, A Xiao MATERIAL HANDLER 2ND SHIFT Unavailable Unavailable Minster, A Xiao MATERIAL HANDLER 2ND SHIFT Unavailable Unavailable Minster, A Xiao MATERIAL HANDLER 2ND SHIFT Unavailable Unavailable Minster, A Xiao MATERIAL HANDLER 2ND SHIFT Unavailable Unavailable Minster, A Xiao MATERIAL HANDLER 2ND SHIFT Unavailable Unavailable Minster, A Xiao MATERIAL HANDLER 2ND SHIFT Unavailable Unavailable Minster, A Xiao MATERIAL HANDLER 2ND SHIFT Unavailable Unavailable Reji Coto MD Unavailable Unavailable Reji Coto MD Unavailable Unavailable Reji Coto MD Unavailable Unavailable Reji Coto MD Unavailable Unavailable Reji Coto MD Unavailable Unavailable Reji Coto MD Unavailable Unavailable Reji Coto MD Unavailable Unavailable Reji Coto MD Unavailable Unavailable Reji Coto MD Unavailable Unavailable Reji Coto MD Unavailable Unavailable Reji Coto MD Unavailable Unavailable Reji Coto MD Unavailable Unavailable Reji Coto MD Unavailable Unavailable Reji Coto MD Unavailable Unavailable Reji Coto MD Unavailable Unavailable Reji Coto MD Unavailable Unavailable Reji Coto MD Unavailable Unavailable Reji Ctoo MD Unavailable Unavailable Reji Coto MD Unavailable Unavailable Reji Ctoo MD Unavailable Unavailable Reji Coto MD Unavailable Unavailable Reji Coto MD Unavailable Unavailable Reji Coto MD Unavailable Unavailable Reji Coto MD Unavailable Unavailable Reji Coto MD Unavailable Unavailable Re-disclosure Warning The records that you are about to access may contain information from federally-assisted alcohol or drug abuse programs. If such information is present, then the following federally mandated warning applies: This information has been disclosed to you from records protected by federal confidentiality rules (42 CFR part 2). The federal rules prohibit you from making any further disclosure of this information unless further disclosure is expressly permitted by the written consent of the person to whom it pertains or as otherwise permitted by 42 CFR part 2. A general authorization for the release of medical or other information is NOT sufficient for this purpose. The Federal rules restrict any use of the information to criminally investigate or prosecute any alcohol or drug abuse patient.The records that you are about to access may contain highly sensitive health information, the redisclosure of which is protected by Article 27-F of the [facility] Public Health law. If you continue you may have access to information: Regarding HIV / AIDS; Provided by facilities licensed or operated by the [facility] Office of Mental Health; or Provided by the [facility] Office for People With Developmental Disabilities. If such information is present, then the following [facility] mandated warning applies: This information has been disclosed to you from confidential records which are protected by state law. State law prohibits you from making any further disclosure of this information without the specific written consent of the person to whom it pertains, or as otherwise permitted by law. Any unauthorized further disclosure in violation of state law may result in a fine or skilled nursing sentence or both. A general authorization for the release of medical or other information is NOT sufficient authorization for further disc losure. Family History Family Member Name Family Member Gender Family Member Status Date o f Status Description Data Source(s) Unknown Unknown Problem [facility] ([facility], ) Encounters Encounter Providers Location Date Indications Data Source(s ) Outpatient Attender: Yin CHAIDEZ 05/03/2021 12:00: 00 AM [facility] Outpatient Attender: George Torrez/Alejandrina/Marquez/Vel dl 02/07/2021 11:30:00 AM EDT MED[facility] ([facility], ) Outpatient Attender: LUIS ALBERTO HINKLE [facility] 10/2020 03:45:00 PM EDT [facility] ([facility] Outpatient Attender: Dave Alexander Physical Therapy 02/02/2021 08:00:0 0 AM EDT [facility] ([facility] ) Outpatient Attender: Zuhair LUONGP.SIDNEY-SJP.SIDNEY 2020 10:02:54 AM EDT - 02/01/2021 11:07:39 AM EDT [facility] Office Visit Attender: Wyatt CHAIDEZ Physical Therapy 10:45:00 AM EDT [facility] ([facility]) Cyndie Mcgregor MD: [address], [place] [address], Ph. Attender: Cyndie Mcgregor [facility] Medical 01/25/2021 12:00:00 AM EDT [facility] ([facility]) Cyndie Mcgregor MD: [address], [place] [address], Ph. Attender: Cyndie Mcgregor [facility] Medical 01/25/2021 12:00:00 AM EDT [facility] ([facility]) Cyndie Mcgregor MD: [address], [place] [address], Ph. Attender: Cyndie Mcgregor [facility] Medical 01/25/2021 12:00:00 AM EDT [facility] ([facility]) Cyndie Mcgregor MD: [address], [facility] [address], Ph. Attender: Cyndie Mcgregor [facility] Medical 01/25/2021 12:00:00 AM EDT [facility] ([facility]) Vidal Urias MD: [address] [place] [address], Ph. Attender: Vidal Urias MD [facility] Medical 12/29/2020 12:00:00 AM EDT [facility] ([facility]) Vidal Urias MD: [address] [place] [address], Ph. Attender: Vidal Urias MD [facility] Medical 12/29/2020 12:00:00 AM EDT [facility] ([facility]) Vidal Urias MD: [address] [place] [address], Ph. Attender: Vidal Urias MD [facility] Medical 12/29/2020 12:00:00 AM EDT [facility] ([facility]) Vidal Urias MD: [address] [place] [address], Ph. Attender: Vidal Urias MD [facility] Medical 12/29/2020 12:00:00 AM EDT [facility] ([facility]) Outpatient Attender: Dave Alexander Physical Therapy 12/22/2020 01:30:0 0 PM EDT [facility] ([facility]) OFFICE OUTPATIENT VISIT 15 MINUTES Attender: Wyatt CHAIDEZ Physical Therapy 12/13/2020 11:00:00 AM EDT [facility] ([facility]) Vidal Urias MD: [address] [place] [address], Ph. Attender: Vidal Urias MD [facility] Medical 12/01/2020 12:00:00 AM EDT [facility] ([facility]) Vidal Urias MD: [address] [place] [address], Ph. Attender: Vidal Urias MD [facility] Medical 12/01/2020 12:00:00 AM EDT [facility] ([facility]) Vidal rUias MD: [address] [place] [address], Ph. Attender: Vidal Urias MD [facility] Medical 12/01/2020 12:00:00 AM EDT [facility] ([facility]) Vidal Urias MD: [address] [place] [address], Ph. Attender: Vidal Urias MD [facility] Medical 12/01/2020 12:00:00 AM EDT [facility] ([facility]) Vidal Urias MD: [address] [place] [address], Ph. Attender: Vidal Urias MD [facility] Medical 12/01/2020 12:00:00 AM EDT [facility] ([facility]) Vidal Urias MD: [address] [place] [address], Ph. Attender: Vidal Urias MD [facility] Medical 12/01/2020 12:00:00 AM EDT [facility] ([facility]) Vidal Urias MD: [address] [place] [address], Ph. Attender: Vidal Urias MD [facility] Medical 12/01/2020 12:00:00 AM EDT [facility] ([facility]) Vidal Urias MD: [address] [place] [address], Ph. Attender: Vidal Urias MD [facility] Medical 12/01/2020 12:00:00 AM EDT [facility] ([facility]) Outpatient Attender: George Torrez/Sedgwick/Marquez/Rein dl 11/30/2020 02:00:00 PM EDT [facility] ([facility] Outpatient Attender: Kourtney Hall MD Main office - [place] 11/29/2020 01:30:00 PM EDT [facility] ([facility]) Outpatient Attender: Yin CHAIDEZ 11/24/2020 12:00: 00 AM [facility] Outpatient Attender: George Torrez/[place]gwick/Marquez/Rein dl 11/23/2020 09:15:00 AM EDT [facility] ([facility]) Outpatient Attender: George Torrez/Alejandrina/Marquez/Rein dl 11/15/2020 08:15:00 AM EDT MEDENT ([facility], ) Cyndie Mcgregor MD: [address], [place] [address], Ph. Attender: Cyndie Mcgregor [facility] 10/10/2020 12:00:00 AM EDT [facility] ([facility]) Cyndie Mcgregor MD: [address], [place] [address], Ph. Attender: Cyndie Mcgregor [facility] 10/10/2020 12:00:00 AM EDT [facility] ([facility]) Cyndie Mcgregor MD: [address], [place] [address], Ph. Attender: Cyndie Mcgregor [facility] 10/10/2020 12:00:00 AM EDT [facility] ([facility]) Cyndie Mcgregor MD: [address], [place] [address], Ph. Attender: Cyndie Mcgregor [facility] 10/10/2020 12:00:00 AM EDT [facility] ([facility]) Cyndie Mcgregor MD: [address], [place] [address], Ph. Attender: Cyndie Mcgregor [facility] 10/10/2020 12:00:00 AM EDT [facility] ([facility]) Outpatient Attender: LUIS ALBERTO HINKLE [facility] Office 09/27 03:30:00 PM EDT [facility] Cyndie Mcgregor MD: [address], [place] [address], Ph. Attender: Cyndie Mcgregor [facility] Medical 10/03/2020 12:00:00 AM EDT [facility] ([facility]) Cyndie Mcgregor MD: [address], [place] [address], Ph. Attender: Cyndie Mcgregor [facility] Medical 10/03/2020 12:00:00 AM EDT [facility] ([facility]) Cyndie Mcgregor MD: [address], [place] [address], Ph. Attender: Cyndie Mcgregor [facility] Medical 10/03/2020 12:00:00 AM EDT [facility] ([facility]) Cyndie Mcgregor MD: [address], [place] [address], Ph. Attender: Cyndie Mcgregor [facility] Medical 10/03/2020 12:00:00 AM EDT [facility] ([facility]) Cyndie Mcgregor MD: [address], [place] [address], Ph. Attender: Cyndie Mcgregor [facility] Medical 10/03/2020 12:00:00 AM EDT [facility] ([facility]) Cyndie Mcgregor MD: [address], [place] [address], Ph. Attender: Cyndie Mcgregor [facility] Medical 10/03/2020 12:00:00 AM EDT [facility] ([facility]) Cyndie Mcgregor MD: [address], [place] [address], Ph. Attender: Cynide Mcgregor [facility] Medical 09/16/2020 12:00:00 AM EDT [facility] ([facility]) Cyndie Mcgregor MD: [address], [place] [address], Ph. Attender: Cyndie Mcgregor [facility] Medical 09/16/2020 12:00:00 AM EDT [facility] ([facility]) Cyndie Mcgregor MD: [address], [place] [address], Ph. Attender: Cyndie Mcgregor [facility] Medical 09/16/2020 12:00:00 AM EDT [facility] ([facility]) Cyndie Mcgregor MD: [address], [place] [address], Ph. Attender: Cyndie Mcgregor [facility] Medical 09/16/2020 12:00:00 AM EDT [facility] ([facility]) Cyndie Mcgregor MD: [address], [place] [address], Ph. Attender: Cyndie Mcgregor [facility] Medical 09/16/2020 12:00:00 AM EDT [facility] ([facility]) Cyndie Mcgregor MD: [address], [place] [address], Ph. Attender: Cyndie Mcgregor [facility] Medical 09/16/2020 12:00:00 AM EDT [facility] ([facility]) Cyndie Mcgregor MD: [address], [place] [address], Ph. Attender: Cyndie Mcgregor [facility] Medical 09/16/2020 12:00:00 AM EDT [facility] ([facility]) Office Visit Attender: Kourtney Hall MD Main office - [place] 08/26/2020 10:00:00 AM EDT [facility] ([facility]) Outpatient Attender: KISHAN VAZ [id number] 08/05/2020 12:00:00 AM EDT - 08/05/2020 10:09:55 AM EDT Type 2 diabetes mellitus with hyperglycemia [facility] Type 2 diabetes mellitus with hyperglyce brandon Outpatient Attender: Zuhair BROWNSIDNEY-SJP.SIDNEY 2020 01:21:23 PM EDT - 07/13/2020 02:28:53 PM EDT [facility] Outpatient Attender: Kaykay Roach MDAdmitter: Kaykay saavedra MD [email or web address].CVAU 07/08/2020 06:25:00 AM EST - 07/08/2020 06:33:00 PM EST [facility] Patient discharged. Outpatient JAMAL-SJP.SIDNEY 07/01/2020 12:00:00 AM EST [facility] Office Visit Attender: Wyatt CHAIDEZ Physical Therapy 02:00:00 PM EST [facility] ([facility]) Outpatient Attender: Zuhair EDWARDSAtt swati: XAVI PICHARDO MDConsultant: XAVI ROSAS.SIDNEY-SJP.SIDNEY 06/29/2020 12:00:00 AM EST - 06/29/2020 10:48:41 AM EST [facility] Cyndie Mcgregor MD: [address] [place] [address], Ph. Attender: Cyndie Mcgregor [facility] Medical 06/27/2020 12:00:00 AM EST [facility] ([facility]) Cyndie Mcgregor MD: [address], [place] [address], Ph. Attender: Cyndie Mcgregor [facility] Medical 06/27/2020 12:00:00 AM EST [facility] ([facility]) Cyndie Mcgregor MD: [address], [place] [address], Ph. Attender: Cyndie Mcgregor [facility] Medical 06/27/2020 12:00:00 AM EST [facility] ([facility]) Cyndie Mcgregor MD: [address], [place] [address], Ph. Attender: Cyndie Mcgregor [facility] Medical 06/27/2020 12:00:00 AM EST [facility] ([facility]) Cyndie Mcgregor MD: [address], [place] [address], Ph. Attender: Cyndie Mcgregor [facility] Medical 06/27/2020 12:00:00 AM EST [facility] ([facility]) Cyndie Mcgregor MD: [address], [place] [address], Ph. Attender: Cyndie Mcgregor [facility] Medical 06/27/2020 12:00:00 AM EST [facility] ([facility]) Cyndie Mcgregor MD: [address], [place] [address], Ph. Attender: Cnydie Mcgregor [facility] Medical 06/27/2020 12:00:00 AM EST [facility] ([facility]) Cyndie Mcgregor MD: [address], [place] [address], Ph. Attender: Cyndie Mcgregor [facility] Medical 06/27/2020 12:00:00 AM EST [facility] ([facility]) Cyndie Mcgregor MD: [address], [place] [address], Ph. Attender: Cyndie Mcgregor [facility] Medical 06/27/2020 12:00:00 AM EST [facility] ([facility]) Xiao Barajas [facility]: [address], [place] [address], Ph. Attender: Xiao Barajas [facility] Medical 06/24/2020 12:00:00 AM EST [facility] ([facility]) Xiao Barajas [facility]: [address], [place] [address], Ph. Attender: Xiao Barajas [facility] Medical 06/24/2020 12:00:00 AM EST [facility] ([facility]) [facility]: [address], [place] [address], Ph. Attender: Xiao Barajas [facility] Medical 06/24/2020 12:00:00 AM EST [facility] ([facility]) Xiao Barajas [facility]: [address], [place] [address], Ph. Attender: Xiao Barajas [facility] Medical 06/24/2020 12:00:00 AM EST [facility] ([facility]) Xiao Barajas [facility]: [address], [place] [address], Ph. Attender: Xiao Barajas [facility] Medical 06/24/2020 12:00:00 AM EST [facility] ([facility]) Xiao Barajas [facility]: [address], [place] [address], Ph. Attender: Xiao Barajas [facility] Medical 06/24/2020 12:00:00 AM EST [facility] ([facility]) Xiao Barajas [facility]: [address], [place] [address], Ph. Attender: Xiao Barajas [facility] Medical 06/24/2020 12:00:00 AM EST [facility] ([facility]) Xiao Barajas [facility]: [address], [place] [address], Ph. Attender: Xiao Barajas [facility] Medical 06/24/2020 12:00:00 AM EST [facility] ([facility]) Xiao Barajas [facility]: [address], [place] [address], Ph. Attender: Xiao Barajas [facility] Medical 06/24/2020 12:00:00 AM EST [facility] ([facility]) Cyndie Mcgregor MD: [address], [place] [address], Ph. Attender: Cyndie Mcgregor [facility] Medical 06/17/2020 12:00:00 AM EST [facility] ([facility]) Cyndie Mcgregor MD: [address], [place] [address], Ph. Attender: Cyndie Mcgregor [facility] Medical 06/17/2020 12:00:00 AM EST [facility] ([facility]) Cyndie Mcgregor MD: [address], [place] [address], Ph. Attender: Cyndie Mcgregor [facility] Medical 06/17/2020 12:00:00 AM EST [facility] ([facility]) Cyndie Mcgregor MD: [address], [place] [address], Ph. Attender: Cyndie Mcgregor [facility] Medical 06/17/2020 12:00:00 AM EST [facility] ([facility]) Cyndie Mcgregor MD: [address], [place] [address], Ph. Attender: Cyndie Mcgregor [facility] Medical 06/17/2020 12:00:00 AM EST [facility] ([facility]) Cyndie Mcgregor MD: [address], [place] [address], Ph. Attender: Cyndie Mcgregor [facility] Medical 06/17/2020 12:00:00 AM EST [facility] ([facility]) Cyndie Mcgregor MD: [address], [place] [address], Ph. Attender: Cyndie Mcgregor [facility] Medical 06/17/2020 12:00:00 AM EST [facility] ([facility]) Cyndie Mcgregor MD: [address], [place] [address], Ph. Attender: Cyndie Mcgregor [facility] Medical 06/17/2020 12:00:00 AM EST [facility] ([facility]) Cyndie Mcgregor MD: [address], [place] [address], Ph. Attender: Cyndie Mcgregor [facility] Medical 06/17/2020 12:00:00 AM EST [facility] ([facility]) Cyndie Mcgregor MD: [address] [place] [address], Ph. Attender: Cyndie Mcgregor [facility] Medical 06/17/2020 12:00:00 AM EST [facility] ([facility]) Outpatient Attender: Sanjuanita Coto MD 0 05/25/2020 02:10:03 PM EST - 05/25/2020 03:33:51 PM EST [facility] ([facility]) Office Visit Attender: Kourtney Hall MD Main office - [place] 05/17/2020 11:00:00 AM EST [facility] ([facility]) Outpatient Attender: Yin CHAIDEZ 05/04/2020 12:00: 00 AM [facility] OFFICE OUTPATIENT VISIT 15 MINUTES Attender: Wyatt CHAIDEZ Physical Therapy 04/13/2020 09:45:00 AM EST [facility] ([facility]) Outpatient Attender: Angel Tenorio MD Physical Therapy 03/29/2020 1 0:00:00 AM EST [facility] ([facility]) Outpatient Attender: KONRAD SILVESTRE 02/16/2020 11:12:01 A M EDT [facility] Outpatient Attender: Xiao SILVESTRE 02/16/2020 10:0 1:00 AM EDT [facility] Outpatient Attender: KONRAD SILVESTRE FP 02/14/2020 01:02:[address] [facility] Outpatient Attender: Xiao SILVESTRE 02/14/2020 01:0 1:[address] [facility]patient Attender: KONRAD SILVESTRE FP 02/11/2020 06:42:03 P M EDT [facility] Outpatient Attender: KONRAD SILVESTRE 02/11/2020 05:14:00 P M [place]T [address] [place] [address] 02/08/2020 12:00:00 AM EDT [facility] Outpatient Attender: KONRAD SILVESTRE FP 02/02/2020 05:21:00 P M EDT [facility] Outpatient Attender: Xiao SILVESTRE FP 02/02/2020 01:2 8:02 PM EDT [facility] Outpatient Attender: KISHAN ТАТЬЯНА [id number] 02/02/2020 12:00:00 AM EDT - 02/02/2020 09:44:57 AM EDT Type 2 diabetes mellitus with hypoglycem ia without coma [facility] Type 2 diabetes mellitus with hypoglycem ia without coma Outpatient Attender: LUIS ALBERTO HINKLE [facility] 08/2019 03:45:00 PM EDT [facility] ([facility] Outpatient Attender: KONRAD SILVESTRE FP 01/29/2020 12:02:19 A M EDT [facility] Outpatient Attender: KONRAD SILVESTRE FP 01/28/2020 04:28:04 P M EDT [facility] Outpatient Attender: Xiao SILVESTRE FP 01/28/2020 04:2 8:02 PM EDT [facility] Outpatient Attender: KONRAD SILVESTRE FP 01/28/2020 03:48:00 P M EDT [facility] Outpatient Attender: KORNAD CONN 01/28/2020 03:47:00 P M EDT [facility] Outpatient Attender: KONRAD CONN 01/28/2020 02:50:01 P M EDT [facility] Outpatient Attender: KONRAD CONN 01/18/2020 08:40:04 A M EDT [facility] Outpatient Attender: Xiao CONN 01/17/2020 04:3 1:02 PM EDT [facility] Outpatient Attender: KONRAD CONN 01/17/2020 04:31:00 P M EDT [facility] Outpatient Attender: Xiao CONN 01/17/2020 04:3 0:06 PM EDT [facility] Outpatient Attender: KONRAD Barajas [employer] 2ND SHIFT FP 01/17/2020 04:29:59 P M EDT [facility] Outpatient Attender: KONRAD Barajas MATERIAL HAND[employer] 2ND SHIFT FP 01/15/2020 03:19:01 P M EDT [facility] Outpatient Attender: KONRAD Arroyo MATERIAL HANDLER 2ND SHIFT FP 01/15/2020 09:55:00 AM EDT [facility] Outpatient Attender: XAVI PICHARDO MDConsultant: XAVI Knott [email or web address] 01/15/2020 12:00:00 AM EDT - 01/15/2020 11:41:48 AM EDT [facility] Immunizations Vaccine Date Status Description Data Source(s) pneumococcal polysaccharide PPV23 01/25/2021 11:14:00 AM EDT com pleted 10.5 mL DANNA ([facility]) pneumococcal polysaccharide PPV23 01/25/2021 11:14:00 AM EDT com pleted 10.5 mL DANNA ([facility]) pneumococcal polysaccharide PPV23 01/25/2021 11:14:00 AM EDT com pleted 10.5 mL DANNA ([facility]) pneumococcal polysaccharide PPV23 01/25/2021 11:14:00 AM EDT com pleted 10.5 mL DANNA ([facility]) COVID-19, mRNA, LNP-S, PF, 100 mcg/0.5 mL dose 12/29/2020 11 :24:23 AM EDT completed .5 mL DANNA ([facility]) COVID-19, mRNA, LNP-S, PF, 100 mcg/0.5 mL dose 12/29/2020 11 :24:23 AM EDT completed .5 mL DANNA ([facility]) COVID-19, mRNA, LNP-S, PF, 100 mcg/0.5 mL dose 12/29/2020 11 :24:23 AM EDT completed .5 mL DANNA ([facility]) COVID-19, mRNA, LNP-S, PF, 100 mcg/0.5 mL dose 12/29/2020 11 :24:23 AM EDT completed .5 mL DANNA ([facility]) COVID-19 VACCINE Moderna 12/29/2020 12:00:00 AM EDT completed NYSIIS Vaccine Series Complete: YESThis Data wa s Submitted to [facility] Via [employer]. COVID-19, mRNA, LNP-S, PF, 100 mcg/0.5 mL dose 12/01/2020 03 :08:33 PM EDT completed .5 mL DANNA ([facility]) COVID-19, mRNA, LNP-S, PF, 100 mcg/0.5 mL dose 12/01/2020 03 :08:33 PM EDT completed .5 mL DANNA ([facility]) COVID-19, mRNA, LNP-S, PF, 100 mcg/0.5 mL dose 12/01/2020 03 :08:33 PM EDT completed .5 mL DANNA ([facility]) COVID-19, mRNA, LNP-S, PF, 100 mcg/0.5 mL dose 12/01/2020 03 :08:33 PM EDT completed .5 mL DANNA ([facility]) COVID-19 VACCINE Moderna 12/01/2020 12:00:00 AM EDT completed NYSIIS Vaccine Series Complete: NOThis Data was Submitted to [facility] Via [employer]. New in 2011. IIV4 02/11/2020 12:00:00 AM EDT completed .5 mL DANNA ([facility]) New in 2011. IIV4 02/11/2020 12:00:00 AM EDT completed .5 mL DANNA ([facility]) New in 2011. IIV4 02/11/2020 12:00:00 AM EDT completed .5 mL DANNA ([facility]) New in 2011. IIV4 02/11/2020 12:00:00 AM EDT completed .5 mL DANNA ([facility]) New in 2011. IIV4 02/11/2020 12:00:00 AM EDT completed 0.5 mL DANNA ([facility]) New in 2011. IIV4 02/11/2020 12:00:00 AM EDT completed 0.5 mL DANNA ([facility]) New in 2011. IIV4 02/11/2020 12:00:00 AM EDT completed 0.5 mL DANNA ([facility]) New in 2011. IIV4 02/11/2020 12:00:00 AM EDT completed 0.5 mL DANNA ([facility]) New in 2011. IIV4 02/11/2020 12:00:00 AM EDT completed 0.5 mL DANNA ([facility]) New in 2011. IIV4 02/11/2020 12:00:00 AM EDT completed .5 mL DANNA ([facility]) Medications Medication Brand Name Start Date Product Form Dose Route Admi nistrative Instructions Pharmacy Instructions Status Indications Reaction Description Data Source(s) Ofloxacin 3 MG/ML Otic Solution Ofloxacin (Otic) 02/10/2021 12:00:00 AM EDT active MEDENT ([facility]) Cholecalciferol 2000 UNT Oral Tablet Cho lecalciferol (Vitamin D) 50 MCG (2000 UT) tablet Cholecalciferol (Vitamin D) 50 MCG (2000 UT) tablet 12:00:00 AM EDT active TAKE ONE TABLET BY MOUTH @8PM [facility] ezetimibe 10 MG Oral Tablet ezetimibe (ZETIA) 10 MG ta blet ezetimibe (ZETIA) 10 MG tablet 01/22/2021 12:00:00 AM EDT active TAKE ONE TABLET BY MOUTH @8AM [facility] gabapentin 300 MG Oral Capsule gabapentin (NEURONTIN) 300 MG capsule gabapentin (NEURONTIN) 300 MG capsule 01/22/2021 12:00:00 AM EDT active TAKE ONE CAPSULE BY MOUTH @8AM and TAKE ONE CAPSULE @12PM and TAKE ONE CAPSULE @5PM [facility] glucose blood (Prodigy No Coding Blood Gluc) test strip [id number] 12/15/2020 12:00:00 AM EDT active USE DIRECTED TO test blood glucose 4 times daily. DX E11.65 [facility] cetirizine hydrochloride 10 MG Oral Tablet Cetirizine HCL 11/15/2020 12:00:00 AM EDT ORAL active [facility] ([facility]) Ajovy Ajovy 09/09/2020 12:00:00 AM EDT completed [facility] ([facility]) Lisinopril 10 MG Oral Tablet lisinopril (PRINIVIL,ZEST RIL) 10 MG tablet lisinopril (PRINIVIL,ZESTRIL) 10 MG tablet 09/07/2020 12:00:00 AM EDT active Coronary artery disease due to lipid rich plaqueEssential hy pertension TAKE ONE TABLET BY MOUTH @5PM [facility] Coronary artery disease due to lipid katelin h plaque Essential hypertension clopidogrel 75 MG Oral Tablet clopidogrel (PLAVIX) 75 MG tablet clopidogrel (PLAVIX) 75 MG tablet 09/07/2020 12:00:00 AM EDT active Coronary artery disease due to lipid rich plaqueEssential hypertension TAKE ONE TABLET BY MOUTH @8AM [facility] Coronary artery disease due to lipid katelin h plaque Essential hypertension icosapent ethyl 1000 MG Oral Capsule Icosapent Ethyl 1 g CAPS Icosapent Ethyl 1 g CAPS 08/08/2020 12:00:00 AM EDT 1 g Oral activ e Hyperlipidemia, unspecified hyperlipidemia type Take 1 g by mouth 2 (two) ti mes a day [facility] Hyperlipidemia, unspecified hyperlipidem ia type Prodigy No Coding Blood Gluc In Vitro Strip (glucose blood) [id number] 08/05/2020 12:00:00 AM EDT act chacha Type 2 diabetes mellitus with hyperglycemia, with long-term current use of insulin U SE DIRECTED TO test blood glucose SIX times daily [facility] Type 2 diabetes mellitus with hyperglyce brandon, with long-term current use of insulin 1.5 ML Insulin Glargine 300 UNT/ML Pen I njector [Toujeo] Toujeo SoloStar 300 UNIT/ML Subcutaneous Solution Pen-injector Toujeo SoloStar 300 UNIT/ML Subcutaneous Solution Pen-injector 08/05/2020 12:00:00 AM EDT active Long-term insulin useType 2 diabetes mellitus with hyperglycemia, with long-term current use of insulin Inject 75 units into skin at bedtime, total daily dose not to exceed 92 units with titration and priming. Dx:E11.65 [facility] Long-term insulin use Type 2 diabetes mellitus with hyperglyce brandon, with long-term current use of insulin Insulin, Aspart, Human 100 UNT/ML Inject able Solution Insulin Aspart 100 UNIT/ML Subcutaneous Solution (NovoLOG) Insulin Aspart 100 UNIT/ML Subcutaneous Solution (NovoLOG) 08/05/2020 12:00:00 AM EDT active Type 2 diabetes mellitus with hyperglycemia, with long-term current use of insulin Inject as per sliding scale. MDD- 95 units with priming and titration. Dx: E11.65 [facility] Type 2 diabetes mellitus with hyperglyce brandon, with long-term current use of insulin icosapent ethyl 1000 MG Oral Capsule Icosapent Ethyl 1 g CAPS Icosapent Ethyl 1 g CAPS 07/13/2020 12:00:00 AM EDT 1 g Oral activ e Hyperlipidemia, unspecified hyperlipidemia type Take 1 g by mouth 2 (two) ti mes a day [facility] Hyperlipidemia, unspecified hyperlipidem ia type normal saline flush 0.9 % injection 3 mL 00813-605-40 07/08/2020 02:00:00 PM EST 3 mL Intravenous active 3 mL , Intravenous, PROTOCOL, First dose on Sat07/08/20 at 1400, Pre-op
flush per protocol, D/C Main IV fluid if appropriate
[facility] Medication administered onsite sodium chloride 0.9% (NS) infusion 2750-5217-06 07/08/2020 11:00:00 A M EST Intravenous completed at 100 mL/hr, Intravenous, Continuous, Starting Sat07/08/20 at 1100, For 8 hours, Post-op [facility] Medication administered onsite Nitroglycerin 0.4 MG Sublingual Tablet n itroglycerin (NITROSTAT) SL tablet 0.4 mg nitroglycerin (NITROSTAT) SL tablet 0.4 mg 07/08/2020 09:55:52 A M EST 0.4 mg Sublingual active 0.4 mg, S ublingual, Every 5 min PRN, chest pain, Starting Sat07/08/20 at 0955, Post-op
May administer every 5 minutes for 3 doses and call cardio lab MD.
[facility] Medication administered onsite 10 ML Atropine Sulfate 0.1 MG/ML Prefill ed Syringe atropine sulfate injection 0.5 mg atropine sulfate injection 0.5 mg 07/08/2020 09:55:52 AM EST 0.5 mg active 0.5 mg, Intrave nous Push, Every 5 min PRN, other, As needed, for heart rate less than 60 BPM and the patient is hemodynamically unstable and/or SBP is less than 90mmHg, Starting Sat07/08/20 at 0955, For 1 day, Post-op
Not to exceed a total of 3 mg or 0.04 mg/kg. Max of 6 doses
[facility] Medication administered onsite Acetaminophen 325 MG Oral Tablet acetaminophen (TYLENO L) 325 MG tablet 650 mg acetaminophen (TYLENOL) 325 MG tablet 650 mg 07/08/2020 09:55:52 AM EST 650 mg Oral active 650 mg, Or al, Every 4 hours PRN, headaches, and non cardiac pain, Starting Sat07/08/20 at 0955, Post-op
"Maximum dose of acetaminophen is 4,000 mg from all sources in 24 hours."
[facility] Medication administered onsite iopamidol (ISOVUE-370) 76 % [id number] 07/08/2020 09:32:04 AM EST active As needed, Starting Sat07/08/20 at 0932, Intra-Procedu re [facility] Medication administered onsite clopidogrel 75 MG Oral Tablet clopidogrel (PLAVIX) tab let clopidogrel (PLAVIX) tablet 07/08/2020 09:31:54 AM EST active As needed, Starting Sat07/08/20 at 0931, Intra-Procedure [facility] Medication administered onsite 1 ML Phenylephrine Hydrochloride 10 MG/M L Injection phenylephrine (JANAK- SYNEPHRINE) injection phenylephrine (JANAK-SYNEPHRINE) injection 07/08/2020 09:02:29 AM EST active As needed, Starting Sat07/08/20 at 0902, Intra-Procedure [facility] Medication administered onsite 10 ML Atropine Sulfate 0.1 MG/ML Prefilled Syringe atr opine sulfate injection atropine sulfate injection 07/08/2020 08:58:55 AM EST active As needed, Starting Sat07/08/20 at 0858, Intra-Procedure [facility] Medication administered onsite 1 ML heparin sodium, porcine 1000 UNT/ML Injection hep james (porcine) injection heparin (porcine) injection 07/08/2020 08:58:43 AM EST active As needed, Starting Sat07/08/20 at 0858, Intra-Procedure [facility] Medication administered onsite 4 ML Verapamil hydrochloride 2.5 MG/ML Injection verap citlali (ISOPTIN) injection verapamil (ISOPTIN) injection 07/08/2020 08:58:16 AM EST active As needed, Starting Sat07/08/20 at 0858, Intra-Procedure [facility] Medication administered onsite lidocaine 1 % injection [id number] 07/08/2020 08:56:50 AM EST active As needed, Starting Sat07/08/20 at 0856, Intra-Procedure [facility] Medication administered onsite fentaNYL Citrate (PF) (SUBLIMAZE) injection 5201-1697-90 07/08/2020 08:53:26 AM EST active As neede d, Starting Sat07/08/20 at 0853, Intra-Procedure [facility] Medication administered onsite sodium chloride 0.9% (NS) infusion 7938-5696-27 07/08/2020 07:00:00 AM EST 100 mL/h Intravenous active at 100 m L/hr, 100 mL/hr, Intravenous, Continuous, Starting Sat07/08/20 at 0700, Pre-op
Start two hours prior to scheduled start time
[facility] Medication administered onsite normal saline flush 0.9 % injection 3 mL [id number] 07/08/2020 07:00:00 AM EST 3 mL Intravenous active 3 mL , Intravenous, Every 8 hours (scheduled), First dose on Sat07/08/20 at 0700, Pre-op
Rapid push positive pressure flushing shall be performed with a 10 cc normal saline syringe to check the PATENCY of a PIV site prior to any infusion therapy initiation unless resistance is met.
[facility] Medication administered onsite normal saline flush 0.9 % injection 3 mL [id number] 07/08/2020 07:00:00 AM EST 3 mL Intravenous active 3 mL , Intravenous, Every 8 hours (scheduled), First dose on Sat07/08/20 at 0700, Pre-op
Rapid push positive pressure flushing shall be performed with a 10 cc normal saline syringe to check the PATENCY of a PIV site prior to any infusion therapy initiation unless resistance is met.
[facility] Medication administered onsite clopidogrel 75 MG Oral Tablet clopidogrel (PLAVIX) 75 MG tablet clopidogrel (PLAVIX) 75 MG tablet 07/08/2020 12:00:00 AM EST 75 mg Oral active Coronary artery disease due to lipid rich plaqueEssential hypertension Take 1 tablet (75 mg total) by mouth daily [facility] Coronary artery disease due to lipid katelin h plaque Essential hypertension Nitroglycerin 0.4 MG Sublingual Tablet n itroglycerin (NITROSTAT) 0.4 MG SL tablet nitroglycerin (NITROSTAT) 0.4 MG SL tablet 06/29/2020 12:00:00 A M EST 0.4 mg Sublingual active Ischemic cardio myopathyCoronary artery disease due to lipid rich plaque Place 1 tablet (0.4 mg total ) under the tongue every 5 (five) minutes as needed for chest pain [facility] Ischemic cardiomyopathy Coronary artery disease due to lipid katelin h plaque 2 ML Sodium Hyaluronate 10 MG/ML Prefilled Syringe [Euflexxa ] Euflexxa 06/21/2020 12:00:00 AM EST active [facility] ([facility]) cetirizine hydrochloride 10 MG Oral Tablet cetirizine (ZYRTEC) 10 MG tablet cetirizine (ZYRTEC) 10 MG tablet 06/14/2020 12:00:00 AM EST aborted TAKE ONE TABLET BY MOUTH @8PM [facility] empagliflozin 10 MG Oral Tablet [Sol ce] Jardiance 10 MG Oral Tablet (empagliflozin) Jardiance 10 MG Oral Tablet (empagliflozin) 04/11/2020 12:00:00 AM EST active TAKE ONE TABLET B Y MOUTH @8AM [facility] pantoprazole 40 MG Delayed Release Oral Tablet Pantoprazole Sodium 40 MG Oral Tablet Delayed Release (PROTONIX) Pantoprazole Sodium 40 MG Oral Tablet De layed Release (PROTONIX) 04/10/2020 12:00:00 AM EST 40 mg Oral active Gastroparesis Take 1 tablet by mouth daily [facility] Gastroparesis 24 HR Metformin hydrochloride 500 MG Ext ended Release Oral Tablet metFORMIN HCl ER 500 MG Oral Tablet Extended Release 24 Hour (GLUCOPHAGE-XR) metFORMIN HCl ER 500 MG Oral Tablet Extended Release 24 Hour (GLUCOPHAGE-XR) 04/08/2020 12:00:00 AM EST active Type 2 stormy betes mellitus with hyperglycemia, with long- term current use of insulin Take two tablets twice clare ly with meals as directed. [facility] Type 2 diabetes mellitus with hyperglyce brandon, with long-term current use of insulin atorvastatin 80 MG Oral Tablet atorvastatin (LIPITOR) 80 MG tablet atorvastatin (LIPITOR) 80 MG tablet 03/23/2020 12:00:00 AM EST active TAKE ONE TABLET BY MOUTH @8PM [facility] Docusate Sodium 100 MG Oral Capsule [Colace] Colace 12:00:00 AM EDT ORAL active [facility]ENT ( [facility]) sennosides, SENIOR CARE 8.6 MG Oral Tablet Senna 01/18/2020 12:00:00 AM EDT ORAL active [facility] ([facility]) pantoprazole 40 MG Delayed Release Oral Tablet Pantoprazole Sodium 40 MG Oral Tablet Delayed Release (PROTONIX) Pantoprazole Sodium 40 MG Oral Tablet De layed Release (PROTONIX) 01/18/2020 12:00:00 AM EDT active Gastroparesis TAKE ONE TABLET BY MOUTH @8AM [facility] Gastroparesis 1.5 ML Insulin Glargine 300 UNT/ML Pen I njector [Toujeo] Toujeo SoloStar 300 UNIT/ML Subcutaneous Solution Pen-injector Toujeo SoloStar 300 UNIT/ML Subcutaneous Solution Pen-injector 01/12/2020 12:00:00 AM EDT aborted Long-term insulin useType 2 diabetes mellitus with hyperglycemia, with long-term current use of insulin Inject 70 units into skin at bedtime, total daily dose not to exceed 92 units with titration and priming. Dx:E11.65 [facility] Long-term insulin use Type 2 diabetes mellitus with hyperglyce brandon, with long-term current use of insulin Insulin, Aspart, Human 100 UNT/ML Inject able Solution Insulin Aspart 100 UNIT/ML Subcutaneous Solution (NovoLOG) Insulin Aspart 100 UNIT/ML Subcutaneous Solution (NovoLOG) 01/08/2020 12:00:00 AM EDT aborted Type 2 diabetes mellitus with hyperglycemia, with long-term current use of insulin Inject as per sliding scale. MDD- 95 units with priming and titration. Dx: E11.65 [facility] Type 2 diabetes mellitus with hyperglyce brandon, with long-term current use of insulin clopidogrel 75 MG Oral Tablet clopidogrel (PLAVIX) 75 MG tablet clopidogrel (PLAVIX) 75 MG tablet 12/18/2019 12:00:00 AM EDT 75 mg Oral aborted Coronary artery disease due to lipid rich plaqueEssential hypertension Take 1 tablet (75 mg total) by mouth daily [facility] Coronary artery disease due to lipid katelin h plaque Essential hypertension Glucose Blood In Vitro Strip (Prodigy No Coding Blood Gluc) 82000 10/06/2019 12:00:00 AM EDT aborted Type 2 diabetes mellitus with hyperglycemia, with long-term current use of insulin USE DIRECTED TO test blood glucose SIX times daily [facility] Type 2 diabetes mellitus with hyperglyce brandon, with long-term current use of insulin Naproxen 500 MG Oral Tablet naproxen (NAPROSYN) 500 MG tablet naproxen (NAPROSYN) 500 MG tablet 09/30/2019 12:00:00 AM EDT 500 mg Oral aborted Take 500 mg by mouth 2 (two) times a day with meals [facility] Insulin, Aspart, Human 100 UNT/ML Inject able Solution Insulin Aspart 100 UNIT/ML Subcutaneous Solution (NOVOLOG) Insulin Aspart 100 UNIT/ML Subcutaneous Solution (NOVOLOG) 07/13/2019 12:00:00 AM EDT active Type 2 diabetes mellitus with hyperglycemia, with long-term current use of insulin Inject up to 3 times daily per insulin orders. Total daily dose not to exceed 90 units with titration and priming. Dx: E11.65 [facility] Type 2 diabetes mellitus with hyperglyce brandon, with long-term current use of insulin empagliflozin 10 MG Oral Tablet [Jardiance] JARDIANCE 10 MG TABS JARDIANCE 10 MG TABS 03/18/2019 12:00:00 AM EST 10 mg Oral aborted Take 10 mg by mouth daily [facility] Nitroglycerin 0.4 MG Sublingual Tablet n itroglycerin (NITROSTAT) 0.4 MG SL tablet nitroglycerin (NITROSTAT) 0.4 MG SL tablet 03/13/2019 12:00:00 A M EST 0.[address] 1 t ablet (0.4 mg total) under the tongue every 5 (five) minutes as needed for chest pain [facility] Cholecalciferol 1000 UNT Oral Tablet cho lecalciferol (VITAMIN D3) 25 MCG (1000 UT) tablet cholecalciferol (VITAMIN D3) 25 MCG (1000 UT) tablet 1 12:00:00 AM EDT 1000 U Oral aborted Take 1, 000 Units by mouth daily [facility] Rosuvastatin calcium 20 MG Oral Tablet rosuvastatin (C RESTOR) 20 MG tablet rosuvastatin (CRESTOR) 20 MG tablet 09/08/2018 12:00:00 AM EDT aborted TAKE ONE TABLET BY MOUTH @5PM [facility] ammonium lactate 120 MG/ML Topical Cream ammonium lact ate 12 % topical cream ammonium lactate 12 % topical cream co mpleted ammonium lactate 120 MG/ML Topical Cream DANNA ([facility]) atorvastatin 40 MG Oral Tablet atorvastatin 40 mg tabl et atorvastatin 40 mg tablet completed atorvastatin 40 MG Oral Tablet DANNA ([facility]) ammonium lactate 120 MG/ML Topical Cream ammonium lact ate 12 % topical cream ammonium lactate 12 % topical cream co mpleted ammonium lactate 120 MG/ML Topical Cream DANNA ([facility]) ammonium lactate 120 MG/ML Topical Cream ammonium lact ate 12 % topical cream ammonium lactate 12 % topical cream co mpleted ammonium lactate 120 MG/ML Topical Cream DANNA ([facility]) Naproxen 500 MG Oral Tablet naproxen 500 mg tablet naproxen 500 mg ta blet completed naproxen 500 MG Oral Tablet DANNA ([facility]) 24 HR venlafaxine 37.5 MG Extended Relea se Oral Capsule venlafaxine ER 37.5 mg capsule,extended release 24 hr venlafaxine ER 37.5 mg capsule,extended release 24 hr completed 24 HR v enlafaxine 37.5 MG Extended Release Oral Capsule DANNA ([facility]) Metoprolol Tartrate 25 MG Oral Tablet metoprolol tartr ate 25 mg tablet metoprolol tartrate 25 mg tablet compl eted metoprolol tartrate 25 MG Oral Tablet DANNA ([facility]) Metoprolol Tartrate 25 MG Oral Tablet metoprolol tartr ate 25 mg tablet metoprolol tartrate 25 mg tablet compl eted metoprolol tartrate 25 MG Oral Tablet DANNA ([facility]) atorvastatin 40 MG Oral Tablet atorvastatin 40 mg tabl et atorvastatin 40 mg tablet completed atorvastatin 40 MG Oral Tablet INDIALANTIC ([facility]) Rosuvastatin calcium 20 MG Oral Tablet rosuvastatin 20 mg tablet rosuvastatin 20 mg tablet completed rosuvastati n calcium 20 MG Oral Tablet INDIALANTIC ([facility]) Cholecalciferol 1000 UNT Oral Tablet cho lecalciferol (vitamin D3) 25 mcg (1,000 unit) tablet TAKE ONE TABLET BY MOUTH @8PM cholecalciferol (vitamin D3) 25 mcg (1,000 unit) tablet TAKE ONE TABLET BY MOUTH @8PM completed cholecalciferol 0.025 MG Oral Tablet DANNA ([facility]) cefdinir 300 MG Oral Capsule cefdinir 30 0 mg capsule TAKE ONE CAPSULE BY MOUTH EVERY TWELVE HOURS FOR 10 DAYS cefdinir 300 mg capsule TAKE ONE CAPSULE BY MOUTH EVERY TWELVE HOURS FOR 10 DAYS comple kell cefdinir 300 MG Oral Capsule INDIALANTIC ([facility]) Rosuvastatin calcium 20 MG Oral Tablet rosuvastatin 20 mg tablet rosuvastatin 20 mg tablet completed rosuvastati n calcium 20 MG Oral Tablet INDIALANTIC ([facility]) Metoprolol Tartrate 25 MG Oral Tablet metoprolol tartr ate 25 mg tablet metoprolol tartrate 25 mg tablet compl eted metoprolol tartrate 25 MG Oral Tablet DANNA ([facility]) Amoxicillin 875 MG / Clavulanate 125 MG Oral Tablet amoxicillin 875 mg-potassium clavulanate 125 mg tablet TAKE ONE TABLET BY MOUTH TWICE DAILY FOR 10 DAYS amoxicillin 875 mg-potassium clavulanate 125 mg tablet TAKE ONE TABLET BY MOUTH TWICE DAILY FOR 10 DAYS completed amoxicillin 875 MG / clavulanate 125 MG Oral Tablet DANNA ([facility]) 24 HR venlafaxine 37.5 MG Extended Relea se Oral Capsule venlafaxine ER 37.5 mg capsule,extended release 24 hr venlafaxine ER 37.5 mg capsule,extended release 24 hr completed 24 HR v enlafaxine 37.5 MG Extended Release Oral Capsule DANNA ([facility]) Cholecalciferol 1000 UNT Oral Tablet cho lecalciferol (vitamin D3) 25 mcg (1,000 unit) tablet TAKE ONE TABLET BY MOUTH @8PM cholecalciferol (vitamin D3) 25 mcg (1,000 unit) tablet TAKE ONE TABLET BY MOUTH @8PM completed cholecalciferol 0.025 MG Oral Tablet DANNA ([facility]) Naproxen 500 MG Oral Tablet naproxen 500 mg tablet naproxen 500 mg ta blet completed naproxen 500 MG Oral Tablet DANNA ([facility]) Naproxen 500 MG Oral Tablet naproxen 500 mg tablet naproxen 500 mg ta blet completed naproxen 500 MG Oral Tablet DANNA ([facility]) Rosuvastatin calcium 20 MG Oral Tablet rosuvastatin 20 mg tablet rosuvastatin 20 mg tablet completed rosuvastati n calcium 20 MG Oral Tablet DANNA ([facility]) Metformin hydrochloride 500 MG Oral Tablet metformin 5 00 mg tablet metformin 500 mg tablet completed metformin h ydrochloride 500 MG Oral Tablet INDIALANTIC ([facility]) 24 HR venlafaxine 37.5 MG Extended Relea se Oral Capsule venlafaxine ER 37.5 mg capsule,extended release 24 hr venlafaxine ER 37.5 mg capsule,extended release 24 hr completed 24 HR v enlafaxine 37.5 MG Extended Release Oral Capsule DANNA ([facility]) atorvastatin 40 MG Oral Tablet atorvastatin 40 mg tabl et atorvastatin 40 mg tablet completed atorvastatin 40 MG Oral Tablet DANNA ([facility]) Metformin hydrochloride 500 MG Oral Tablet metformin 5 00 mg tablet metformin 500 mg tablet completed metformin h ydrochloride 500 MG Oral Tablet INDIALANTIC ([facility]) Amoxicillin 875 MG / Clavulanate 125 MG Oral Tablet amoxicillin 875 mg-potassium clavulanate 125 mg tablet TAKE ONE TABLET BY MOUTH TWICE DAILY FOR 10 DAYS amoxicillin 875 mg-potassium clavulanate 125 mg tablet TAKE ONE TABLET BY MOUTH TWICE DAILY FOR 10 DAYS completed amoxicillin 875 MG / clavulanate 125 MG Oral Tablet DANNA ([facility]) cefdinir 300 MG Oral Capsule cefdinir 30 0 mg capsule TAKE ONE CAPSULE BY MOUTH EVERY TWELVE HOURS FOR 10 DAYS cefdinir 300 mg capsule TAKE ONE CAPSULE BY MOUTH EVERY TWELVE HOURS FOR 10 DAYS comple kell cefdinir 300 MG Oral Capsule DANNA ([facility]) Acetaminophen 325 MG / Hydrocodone Bianca trate 5 MG Oral Tablet hydrocodone 5 mg- acetaminophen 325 mg tablet hydrocodone 5 mg-acetaminophen 325 mg tablet completed acetaminophen 325 MG / hydrocodone bitartrate 5 MG Oral Tablet DANNA ([facility]) Acetaminophen 325 MG / Hydrocodone Bianca trate 5 MG Oral Tablet hydrocodone 5 mg- acetaminophen 325 mg tablet hydrocodone 5 mg-acetaminophen 325 mg tablet completed acetaminophen 325 MG / hydrocodone bitartrate 5 MG Oral Tablet DANNA ([facility]) Nystatin 100 UNT/MG / Triamcinolone Acet onide 0.001 MG/MG Topical Ointment nystatin-triamcinolone 100,000 unit/gram-0.1 % topical ointment nystatin- triamcinolone 100,000 unit/gram-0.1 % topical ointment completed nystatin 100 UNT/MG / triamcinolone acetonide 0.001 MG /MG Topical Ointment DANNA ([facility]) 24 HR venlafaxine 37.5 MG Extended Relea se Oral Capsule venlafaxine ER 37.5 mg capsule,extended release 24 hr venlafaxine ER 37.5 mg capsule,extended release 24 hr completed 24 HR v enlafaxine 37.5 MG Extended Release Oral Capsule DANNA ([facility]) ammonium lactate 120 MG/ML Topical Cream ammonium lact ate 12 % topical cream ammonium lactate 12 % topical cream co mpleted ammonium lactate 120 MG/ML Topical Cream DANNA ([facility]) Nystatin 100 UNT/MG / Triamcinolone Acet onide 0.001 MG/MG Topical Ointment nystatin-triamcinolone 100,000 unit/gram-0.1 % topical ointment nystatin- triamcinolone 100,000 unit/gram-0.1 % topical ointment completed nystatin 100 UNT/MG / triamcinolone acetonide 0.001 MG /MG Topical Ointment DANNA ([facility]) Acetaminophen 325 MG / Hydrocodone Bianca trate 5 MG Oral Tablet hydrocodone 5 mg- acetaminophen 325 mg tablet hydrocodone 5 mg-acetaminophen 325 mg tablet completed acetaminophen 325 MG / hydrocodone bitartrate 5 MG Oral Tablet DANNA ([facility]) Metformin hydrochloride 500 MG Oral Tablet metformin 5 00 mg tablet metformin 500 mg tablet completed metformin h ydrochloride 500 MG Oral Tablet DANNA ([facility]) Acetaminophen 325 MG / Hydrocodone Bianca trate 5 MG Oral Tablet hydrocodone 5 mg- acetaminophen 325 mg tablet hydrocodone 5 mg-acetaminophen 325 mg tablet completed acetaminophen 325 MG / hydrocodone bitartrate 5 MG Oral Tablet DANNA ([facility]) atorvastatin 40 MG Oral Tablet atorvastatin 40 mg tabl et atorvastatin 40 mg tablet completed atorvastatin 40 MG Oral Tablet DANNA ([facility]) Metoprolol Tartrate 25 MG Oral Tablet metoprolol tartr ate 25 mg tablet metoprolol tartrate 25 mg tablet compl eted metoprolol tartrate 25 MG Oral Tablet DANNA ([facility]) Amoxicillin 875 MG / Clavulanate 125 MG Oral Tablet amoxicillin 875 mg-potassium clavulanate 125 mg tablet TAKE ONE TABLET BY MOUTH EVERY TWELVE HOURS FOR 10 DAYS amoxicillin 875 mg-potassium clavulanate 125 mg tablet TAKE ONE TABLET BY MOUTH EVERY TWELVE HOURS FOR 10 DAYS c ompleted amoxicillin 875 MG / clavulanate 125 MG Oral Tablet DANNA ([facility]) Ondansetron 4 MG Oral Tablet ondansetron HCl 4 mg tabl et ondansetron HCl 4 mg tablet completed ondansetron 4 M G Oral Tablet DANNA ([facility]) gabapentin 100 MG Oral Capsule gabapentin (NEURONTIN) 100 MG capsule gabapentin (NEURONTIN) 100 MG capsule 300 mg Oral aborted Take 300 mg by mouth 3 (three) times a day [facility] Rosuvastatin calcium 20 MG Oral Tablet rosuvastatin 20 mg tablet rosuvastatin 20 mg tablet completed rosuvastati n calcium 20 MG Oral Tablet DANNA ([facility]) 24 HR venlafaxine 37.5 MG Extended Relea se Oral Capsule venlafaxine ER 37.5 mg capsule,extended release 24 hr venlafaxine ER 37.5 mg capsule,extended release 24 hr completed 24 HR v enlafaxine 37.5 MG Extended Release Oral Capsule DANNA ([facility]) Nystatin 100 UNT/MG / Triamcinolone Acet onide 0.001 MG/MG Topical Ointment nystatin-triamcinolone 100,000 unit/gram-0.1 % topical ointment nystatin- triamcinolone 100,000 unit/gram-0.1 % topical ointment completed nystatin 100 UNT/MG / triamcinolone acetonide 0.001 MG /MG Topical Ointment DANNA ([facility]) 24 HR venlafaxine 37.5 MG Extended Relea se Oral Capsule venlafaxine ER 37.5 mg capsule,extended release 24 hr venlafaxine ER 37.5 mg capsule,extended release 24 hr completed 24 HR v enlafaxine 37.5 MG Extended Release Oral Capsule DANNA ([facility]) atorvastatin 40 MG Oral Tablet atorvastatin 40 mg tabl et atorvastatin 40 mg tablet completed atorvastatin 40 MG Oral Tablet DANNA ([facility]) Ondansetron 4 MG Oral Tablet ondansetron HCl 4 mg tabl et ondansetron HCl 4 mg tablet completed ondansetron 4 M G Oral Tablet INDIALANTIC ([facility]) Cholecalciferol 1000 UNT Oral Tablet cho lecalciferol (vitamin D3) 25 mcg (1,000 unit) tablet TAKE ONE TABLET BY MOUTH @8PM cholecalciferol (vitamin D3) 25 mcg (1,000 unit) tablet TAKE ONE TABLET BY MOUTH @8PM completed cholecalciferol 0.025 MG Oral Tablet DANNA ([facility]) Nystatin 100 UNT/MG / Triamcinolone Acet onide 0.001 MG/MG Topical Ointment nystatin-triamcinolone 100,000 unit/gram-0.1 % topical ointment nystatin- triamcinolone 100,000 unit/gram-0.1 % topical ointment completed nystatin 100 UNT/MG / triamcinolone acetonide 0.001 MG /MG Topical Ointment DANNA ([facility]) Metoprolol Tartrate 25 MG Oral Tablet metoprolol tartr ate 25 mg tablet metoprolol tartrate 25 mg tablet compl eted metoprolol tartrate 25 MG Oral Tablet DANNA ([facility]) Naproxen 500 MG Oral Tablet naproxen 500 mg tablet naproxen 500 mg ta blet completed naproxen 500 MG Oral Tablet DANNA ([facility]) ammonium lactate 120 MG/ML Topical Cream ammonium lact ate 12 % topical cream ammonium lactate 12 % topical cream co mpleted ammonium lactate 120 MG/ML Topical Cream DANNA ([facility]) Rosuvastatin calcium 20 MG Oral Tablet rosuvastatin 20 mg tablet rosuvastatin 20 mg tablet completed rosuvastati n calcium 20 MG Oral Tablet DANNA ([facility]) Rosuvastatin calcium 20 MG Oral Tablet rosuvastatin 20 mg tablet rosuvastatin 20 mg tablet completed rosuvastati n calcium 20 MG Oral Tablet DANNA ([facility]) ammonium lactate 120 MG/ML Topical Cream ammonium lact ate 12 % topical cream ammonium lactate 12 % topical cream co mpleted ammonium lactate 120 MG/ML Topical Cream DANNA ([facility]) Naproxen 500 MG Oral Tablet naproxen 500 mg tablet naproxen 500 mg ta blet completed naproxen 500 MG Oral Tablet DANNA ([facility]) atorvastatin 40 MG Oral Tablet atorvastatin 40 mg tabl et atorvastatin 40 mg tablet completed atorvastatin 40 MG Oral Tablet DANNA ([facility]) atorvastatin 40 MG Oral Tablet atorvastatin 40 mg tabl et atorvastatin 40 mg tablet completed atorvastatin 40 MG Oral Tablet DANNA ([facility]) Metoprolol Tartrate 25 MG Oral Tablet metoprolol tartr ate 25 mg tablet metoprolol tartrate 25 mg tablet compl eted metoprolol tartrate 25 MG Oral Tablet DANNA ([facility]) cefdinir 300 MG Oral Capsule cefdinir 30 0 mg capsule TAKE ONE CAPSULE BY MOUTH EVERY TWELVE HOURS FOR 10 DAYS cefdinir 300 mg capsule TAKE ONE CAPSULE BY MOUTH EVERY TWELVE HOURS FOR 10 DAYS comple kell cefdinir 300 MG Oral Capsule DANNA ([facility]) Acetaminophen 325 MG / Hydrocodone Bianca trate 5 MG Oral Tablet hydrocodone 5 mg- acetaminophen 325 mg tablet hydrocodone 5 mg-acetaminophen 325 mg tablet completed acetaminophen 325 MG / hydrocodone bitartrate 5 MG Oral Tablet DANNA ([facility]) Ondansetron 4 MG Oral Tablet ondansetron HCl 4 mg tabl et ondansetron HCl 4 mg tablet completed ondansetron 4 M G Oral Tablet DANNA ([facility]) cefdinir 300 MG Oral Capsule cefdinir 30 0 mg capsule TAKE ONE CAPSULE BY MOUTH EVERY TWELVE HOURS FOR 10 DAYS cefdinir 300 mg capsule TAKE ONE CAPSULE BY MOUTH EVERY TWELVE HOURS FOR 10 DAYS comple kell cefdinir 300 MG Oral Capsule INDIALANTIC ([facility]) Naproxen 500 MG Oral Tablet naproxen 500 mg tablet naproxen 500 mg ta blet completed naproxen 500 MG Oral Tablet INDIALANTIC ([facility]) Cholecalciferol 1000 UNT Oral Tablet cho lecalciferol (vitamin D3) 25 mcg (1,000 unit) tablet TAKE ONE TABLET BY MOUTH @8PM cholecalciferol (vitamin D3) 25 mcg (1,000 unit) tablet TAKE ONE TABLET BY MOUTH @8PM completed cholecalciferol 0.025 MG Oral Tablet INDIALANTIC ([facility]) Rosuvastatin calcium 20 MG Oral Tablet rosuvastatin 20 mg tablet rosuvastatin 20 mg tablet completed rosuvastati n calcium 20 MG Oral Tablet INDIALANTIC ([facility]) Ondansetron 4 MG Oral Tablet ondansetron HCl 4 mg tabl et ondansetron HCl 4 mg tablet completed ondansetron 4 M G Oral Tablet INDIALANTIC ([facility]) Rosuvastatin calcium 20 MG Oral Tablet rosuvastatin 20 mg tablet rosuvastatin 20 mg tablet completed rosuvastati n calcium 20 MG Oral Tablet INDIALANTIC ([facility]) Rosuvastatin calcium 20 MG Oral Tablet rosuvastatin 20 mg tablet rosuvastatin 20 mg tablet completed rosuvastati n calcium 20 MG Oral Tablet INDIALANTIC ([facility]) Nystatin 100 UNT/MG / Triamcinolone Acet onide 0.001 MG/MG Topical Ointment nystatin-triamcinolone 100,000 unit/gram-0.1 % topical ointment nystatin- triamcinolone 100,000 unit/gram-0.1 % topical ointment completed nystatin 100 UNT/MG / triamcinolone acetonide 0.001 MG /MG Topical Ointment INDIALANTIC ([facility]) Ondansetron 4 MG Oral Tablet ondansetron HCl 4 mg tabl et ondansetron HCl 4 mg tablet completed ondansetron 4 M G Oral Tablet INDIALANTIC ([facility]) Metoprolol Tartrate 25 MG Oral Tablet metoprolol tartr ate 25 mg tablet metoprolol tartrate 25 mg tablet compl eted metoprolol tartrate 25 MG Oral Tablet INDIALANTIC ([facility]) Ondansetron 4 MG Oral Tablet ondansetron HCl 4 mg tabl et ondansetron HCl 4 mg tablet completed ondansetron 4 M G Oral Tablet INDIALANTIC ([facility]) Cholecalciferol 1000 UNT Oral Tablet cho lecalciferol (vitamin D3) 25 mcg (1,000 unit) tablet TAKE ONE TABLET BY MOUTH @8PM cholecalciferol (vitamin D3) 25 mcg (1,000 unit) tablet TAKE ONE TABLET BY MOUTH @8PM completed cholecalciferol 0.025 MG Oral Tablet INDIALANTIC ([facility]) Acetaminophen 325 MG / Hydrocodone Bianca trate 5 MG Oral Tablet hydrocodone 5 mg- acetaminophen 325 mg tablet hydrocodone 5 mg-acetaminophen 325 mg tablet completed acetaminophen 325 MG / hydrocodone bitartrate 5 MG Oral Tablet INDIALANTIC ([facility]) atorvastatin 40 MG Oral Tablet atorvastatin 40 mg tabl et atorvastatin 40 mg tablet completed atorvastatin 40 MG Oral Tablet INDIALANTIC ([facility]) Nystatin 100 UNT/MG / Triamcinolone Acet onide 0.001 MG/MG Topical Ointment nystatin-triamcinolone 100,000 unit/gram-0.1 % topical ointment nystatin- triamcinolone 100,000 unit/gram-0.1 % topical ointment completed nystatin 100 UNT/MG / triamcinolone acetonide 0.001 MG /MG Topical Ointment INDIALANTIC ([facility]) Ondansetron 4 MG Oral Tablet ondansetron HCl 4 mg tabl et ondansetron HCl 4 mg tablet completed ondansetron 4 M G Oral Tablet INDIALANTIC ([facility]) Cholecalciferol 1000 UNT Oral Tablet cho lecalciferol (vitamin D3) 25 mcg (1,000 unit) tablet TAKE ONE TABLET BY MOUTH @8PM cholecalciferol (vitamin D3) 25 mcg (1,000 unit) tablet TAKE ONE TABLET BY MOUTH @8PM completed cholecalciferol 0.025 MG Oral Tablet DANNA ([facility]) Metformin hydrochloride 500 MG Oral Tablet metformin 5 00 mg tablet metformin 500 mg tablet completed metformin h ydrochloride 500 MG Oral Tablet DANNA ([facility]) Rosuvastatin calcium 20 MG Oral Tablet rosuvastatin 20 mg tablet rosuvastatin 20 mg tablet completed rosuvastati n calcium 20 MG Oral Tablet DANNA ([facility]) Metformin hydrochloride 500 MG Oral Tablet metformin 5 00 mg tablet metformin 500 mg tablet completed metformin h ydrochloride 500 MG Oral Tablet DANNA ([facility]) Nystatin 100 UNT/MG / Triamcinolone Acet onide 0.001 MG/MG Topical Ointment nystatin-triamcinolone 100,000 unit/gram-0.1 % topical ointment nystatin- triamcinolone 100,000 unit/gram-0.1 % topical ointment completed nystatin 100 UNT/MG / triamcinolone acetonide 0.001 MG /MG Topical Ointment DANNA ([facility]) ammonium lactate 120 MG/ML Topical Cream ammonium lact ate 12 % topical cream ammonium lactate 12 % topical cream co mpleted ammonium lactate 120 MG/ML Topical Cream DANNA ([facility]) Naproxen 500 MG Oral Tablet naproxen 500 mg tablet naproxen 500 mg ta blet completed naproxen 500 MG Oral Tablet DANNA ([facility]) 24 HR venlafaxine 37.5 MG Extended Relea se Oral Capsule venlafaxine ER 37.5 mg capsule,extended release 24 hr venlafaxine ER 37.5 mg capsule,extended release 24 hr completed 24 HR v enlafaxine 37.5 MG Extended Release Oral Capsule DANNA ([facility]) Metformin hydrochloride 500 MG Oral Tablet metformin 5 00 mg tablet metformin 500 mg tablet completed metformin h ydrochloride 500 MG Oral Tablet DANNA ([facility]) Naproxen 500 MG Oral Tablet naproxen 500 mg tablet naproxen 500 mg ta blet completed naproxen 500 MG Oral Tablet DANNA ([facility]) Nystatin 100 UNT/MG / Triamcinolone Acet onide 0.001 MG/MG Topical Ointment nystatin-triamcinolone 100,000 unit/gram-0.1 % topical ointment nystatin- triamcinolone 100,000 unit/gram-0.1 % topical ointment completed nystatin 100 UNT/MG / triamcinolone acetonide 0.001 MG /MG Topical Ointment DANNA ([facility]) Cholecalciferol 1000 UNT Oral Tablet cho lecalciferol (vitamin D3) 25 mcg (1,000 unit) tablet TAKE ONE TABLET BY MOUTH @8PM cholecalciferol (vitamin D3) 25 mcg (1,000 unit) tablet TAKE ONE TABLET BY MOUTH @8PM completed cholecalciferol 0.025 MG Oral Tablet DANNA ([facility]) 24 HR venlafaxine 37.5 MG Extended Relea se Oral Capsule venlafaxine ER 37.5 mg capsule,extended release 24 hr venlafaxine ER 37.5 mg capsule,extended release 24 hr completed 24 HR v enlafaxine 37.5 MG Extended Release Oral Capsule DANNA ([facility]) Cholecalciferol 1000 UNT Oral Tablet cho lecalciferol (vitamin D3) 25 mcg (1,000 unit) tablet TAKE ONE TABLET BY MOUTH @8PM cholecalciferol (vitamin D3) 25 mcg (1,000 unit) tablet TAKE ONE TABLET BY MOUTH @8PM completed cholecalciferol 0.025 MG Oral Tablet DANNA ([facility]) atorvastatin 40 MG Oral Tablet atorvastatin 40 mg tabl et atorvastatin 40 mg tablet completed atorvastatin 40 MG Oral Tablet INDIALANTIC ([facility]) 24 HR venlafaxine 37.5 MG Extended Relea se Oral Capsule venlafaxine ER 37.5 mg capsule,extended release 24 hr venlafaxine ER 37.5 mg capsule,extended release 24 hr completed 24 HR v enlafaxine 37.5 MG Extended Release Oral Capsule DANNA ([facility]) ammonium lactate 120 MG/ML Topical Cream ammonium lact ate 12 % topical cream ammonium lactate 12 % topical cream co mpleted ammonium lactate 120 MG/ML Topical Cream DANNA ([facility]) Amoxicillin 875 MG / Clavulanate 125 MG Oral Tablet amoxicillin 875 mg-potassium clavulanate 125 mg tablet TAKE ONE TABLET BY MOUTH EVERY TWELVE HOURS FOR 10 DAYS amoxicillin 875 mg-potassium clavulanate 125 mg tablet TAKE ONE TABLET BY MOUTH EVERY TWELVE HOURS FOR 10 DAYS c ompleted amoxicillin 875 MG / clavulanate 125 MG Oral Tablet DANNA ([facility]) Acetaminophen 325 MG / Hydrocodone Bianca trate 5 MG Oral Tablet hydrocodone 5 mg- acetaminophen 325 mg tablet hydrocodone 5 mg-acetaminophen 325 mg tablet completed acetaminophen 325 MG / hydrocodone bitartrate 5 MG Oral Tablet DANNA ([facility]) Metformin hydrochloride 500 MG Oral Tablet metformin 5 00 mg tablet metformin 500 mg tablet completed metformin h ydrochloride 500 MG Oral Tablet DANNA ([facility]) Naproxen 500 MG Oral Tablet naproxen 500 mg tablet naproxen 500 mg ta blet completed naproxen 500 MG Oral Tablet DANNA ([facility]) Amoxicillin 875 MG / Clavulanate 125 MG Oral Tablet amoxicillin 875 mg-potassium clavulanate 125 mg tablet TAKE ONE TABLET BY MOUTH TWICE DAILY FOR 10 DAYS amoxicillin 875 mg-potassium clavulanate 125 mg tablet TAKE ONE TABLET BY MOUTH TWICE DAILY FOR 10 DAYS completed amoxicillin 875 MG / clavulanate 125 MG Oral Tablet DANNA ([facility]) Ondansetron 4 MG Oral Tablet ondansetron HCl 4 mg tabl et ondansetron HCl 4 mg tablet completed ondansetron 4 M G Oral Tablet DANNA ([facility]) Cholecalciferol 1000 UNT Oral Tablet cho lecalciferol (vitamin D3) 25 mcg (1,000 unit) tablet TAKE ONE TABLET BY MOUTH @8PM cholecalciferol (vitamin D3) 25 mcg (1,000 unit) tablet TAKE ONE TABLET BY MOUTH @8PM completed cholecalciferol 0.025 MG Oral Tablet DANNA ([facility]) Acetaminophen 325 MG / Hydrocodone Bianca trate 5 MG Oral Tablet hydrocodone 5 mg- acetaminophen 325 mg tablet hydrocodone 5 mg-acetaminophen 325 mg tablet completed acetaminophen 325 MG / hydrocodone bitartrate 5 MG Oral Tablet DANNA ([facility]) 24 HR venlafaxine 37.5 MG Extended Relea se Oral Capsule venlafaxine ER 37.5 mg capsule,extended release 24 hr venlafaxine ER 37.5 mg capsule,extended release 24 hr completed 24 HR v enlafaxine 37.5 MG Extended Release Oral Capsule DANNA ([facility]) Glipizide 5 MG Oral Tablet glipiZIDE (GLUCOTROL) 5 MG tablet glipiZIDE (GLUCOTROL) 5 MG tablet aborted glipizide 5 mg tablet [facility] Nystatin 100 UNT/MG / Triamcinolone Acet onide 0.001 MG/MG Topical Ointment nystatin-triamcinolone 100,000 unit/gram-0.1 % topical ointment nystatin- triamcinolone 100,000 unit/gram-0.1 % topical ointment completed nystatin 100 UNT/MG / triamcinolone acetonide 0.001 MG /MG Topical Ointment DANNA ([facility]) Metformin hydrochloride 500 MG Oral Tablet metformin 5 00 mg tablet metformin 500 mg tablet completed metformin h ydrochloride 500 MG Oral Tablet DANNA ([facility]) Metoprolol Tartrate 25 MG Oral Tablet metoprolol tartr ate 25 mg tablet metoprolol tartrate 25 mg tablet compl eted metoprolol tartrate 25 MG Oral Tablet DANNA ([facility]) Metformin hydrochloride 500 MG Oral Tablet metformin 5 00 mg tablet metformin 500 mg tablet completed metformin h ydrochloride 500 MG Oral Tablet DANNA ([facility]) ammonium lactate 120 MG/ML Topical Cream ammonium lact ate 12 % topical cream ammonium lactate 12 % topical cream co mpleted ammonium lactate 120 MG/ML Topical Cream DANNA ([facility]) Metformin hydrochloride 500 MG Oral Tablet metformin 5 00 mg tablet metformin 500 mg tablet completed metformin h ydrochloride 500 MG Oral Tablet INDIALANTIC ([facility]) Ondansetron 4 MG Oral Tablet ondansetron HCl 4 mg tabl et ondansetron HCl 4 mg tablet completed ondansetron 4 M G Oral Tablet DANNA ([facility]) Acetaminophen 325 MG / Hydrocodone Bianca trate 5 MG Oral Tablet hydrocodone 5 mg- acetaminophen 325 mg tablet hydrocodone 5 mg-acetaminophen 325 mg tablet completed acetaminophen 325 MG / hydrocodone bitartrate 5 MG Oral Tablet DANNA ([facility]) atorvastatin 40 MG Oral Tablet atorvastatin 40 mg tabl et atorvastatin 40 mg tablet completed atorvastatin 40 MG Oral Tablet DANNA ([facility]) Metoprolol Tartrate 25 MG Oral Tablet metoprolol tartr ate 25 mg tablet metoprolol tartrate 25 mg tablet compl eted metoprolol tartrate 25 MG Oral Tablet DANNA ([facility]) Amoxicillin 875 MG / Clavulanate 125 MG Oral Tablet amoxicillin 875 mg-potassium clavulanate 125 mg tablet TAKE ONE TABLET BY MOUTH TWICE DAILY FOR 10 DAYS amoxicillin 875 mg-potassium clavulanate 125 mg tablet TAKE ONE TABLET BY MOUTH TWICE DAILY FOR 10 DAYS completed amoxicillin 875 MG / clavulanate 125 MG Oral Tablet DANNA ([facility]) Metoprolol Tartrate 25 MG Oral Tablet metoprolol tartr ate 25 mg tablet metoprolol tartrate 25 mg tablet compl eted metoprolol tartrate 25 MG Oral Tablet DANNA ([facility]) Nystatin 100 UNT/MG / Triamcinolone Acet onide 0.001 MG/MG Topical Ointment nystatin-triamcinolone 100,000 unit/gram-0.1 % topical ointment nystatin- triamcinolone 100,000 unit/gram-0.1 % topical ointment completed nystatin 100 UNT/MG / triamcinolone acetonide 0.001 MG /MG Topical Ointment DANNA ([facility]) Amoxicillin 875 MG / Clavulanate 125 MG Oral Tablet amoxicillin 875 mg-potassium clavulanate 125 mg tablet TAKE ONE TABLET BY MOUTH EVERY TWELVE HOURS FOR 10 DAYS amoxicillin 875 mg-potassium clavulanate 125 mg tablet TAKE ONE TABLET BY MOUTH EVERY TWELVE HOURS FOR 10 DAYS c ompleted amoxicillin 875 MG / clavulanate 125 MG Oral Tablet DANNA ([facility]) Naproxen 500 MG Oral Tablet naproxen 500 mg tablet naproxen 500 mg ta blet completed naproxen 500 MG Oral Tablet DANNA ([facility]) Ondansetron 4 MG Oral Tablet ondansetron HCl 4 mg tabl et ondansetron HCl 4 mg tablet completed ondansetron 4 M G Oral Tablet DANNA ([facility]) Acetaminophen 325 MG / Hydrocodone Bianca trate 5 MG Oral Tablet hydrocodone 5 mg- acetaminophen 325 mg tablet hydrocodone 5 mg-acetaminophen 325 mg tablet completed acetaminophen 325 MG / hydrocodone bitartrate 5 MG Oral Tablet DANNA ([facility]) Insurance Providers Payer name Policy type / Coverage type Policy ID Covered green party ID Covered green party's relationship to herzog Policy Herzog Plan Information HMO BLUE [id number] SP [id number] MEDICAID [id number] SP [id number] EXCELLUS H [id number] Self [id number] [place] PPO 302/[id number] SP [id number] [facility] 2..[id number] Self UHC I [id number] Self [id number] Medicaid S [id number] S [id number] Managed Care - Community Plan [facility] P [id number] S [id number] Medicaid S [id number] S [id number] Managed Care - Community Plan [facility] P [id number] S [id number] Managed Care - Community Plan [facility] P [id number] S [id number] MEDICAID [id number] SP [id number] [facility] [id number] SP [id number] [place] Primary [id number] .[id number] Self 1 [id number] MEDICARE [id number] Nany [id number] [place] Primary [id number] ..[id number] Self 1 [id number] [place] Medicare Primary [id number] ..1.366111.3.227.99.991.09537.0 Self 1 [id number] [place] Primary [id number] .[id number]8.0 Self 1 [id number] [place] Medicare Primary [id number] .1.676902.3.227.99.991.32512.0 Self 1 [id number] [place] Primary [id number].[id number] Self [id number] [place] Medicare Primary [id number] 2.16.840.1.724237.3.227.99.991.37756.0 Self 1 [id number] [place] Primary [id number] 2.16.840.1.353441.3.227.99.991.09585.0 Self 1 [id number] [place] Primary [id number] 2.16.840.1.731547.3.227.99.991.89512.0 Self 1 [id number] MEDICARE A [id number] Self [id number] A [place] Primary [id number] 2.16840.1.991968.3.227.99.991.00174.0 Self 1 [id number] [place] Medicare Primary [id number] 2.840.1.861272.3.227.99.991.02528.0 Self 1 [id number] [place] Primary [id number] MRN.[id number] Self [id number] [place] Medicare Primary [id number] 2.16840.1.917870.3.227.99.991.23222.0 Self 1 [id number] [place] Primary [id number] 2.16840.1.636893.3.227.99.991.88213.0 Self 1 [id number] Medicare P [id number] S [id number] [id number] [place] Primary [id number] 2.16840.1.626911.3.227.99.991.22560.0 Self 1 [id number] MEDICARE A [id number] Self [id number] [place] Primary [id number] 2.16840.1.313659.3.227.99.991.98054.0 Self 1 [id number] MEDICAID M [id number] Self [id number] Medicare P [id number] S [id number] A Medicare [place] Medicare Primary [id number] 2.16840.1.094498.3.227.99.991.10927.0 Self 1 [id number] [place] Med[place] [id number] 2.16.840.1.161674.3.227.99.991. 06762.0 Self [id number] [place] [id number] MRN.[id number] Self [id number] [place] Med[place] [id number] 2.16.840.1.399256.3.227.99.991. 78732.0 Self [id number] [place] [id number] 2.16.840.1.409923.3.227.99.991. 04183.0 Self [id number] [place] Med[place] [id number] 2.16.840.1.714797.3.227.99.991. 89787.0 Self [id number] [place] [id number] 2.16.840.1.369268.3.227.99.991. 81446.0 Self [id number] [place] Med[place] [id number] 2.16.840.1.295077.3.227.99.991. 33359.0 Self [id number] [place] [id number] 2.16.840.1.381017.3.227.99.991. 04283.0 Self [id number] [place] [id number] 2.16.840.1.782037.3.227.99.991. 98059.0 Self [id number] [place] Part [place] [id number] 2.16.840.1.083808.3.227.99.991. 79101.0 Self [id number] [place] [id number] 2.16.840.1.695080.3.227.99.991. 58726.0 Self [id number] [place] [id number] 2.16840.1.363678.3.227.99.991. 70337.0 Self [id number] [place] [id number] 2.16840.1.187051.3.227.99.991. 75719.0 Self [id number] [place] [id number] 2.16840.1.834120.3.227.99.991. 62696.0 Self [id number] [place] [id number] MRN.[id number] Self [id number] [place] [id number] 2.0.1.257161.3.227.99.991. 02987.0 Self [id number] [place] [id number] 2.0.1.550691.3.227.99.991. 68749.0 Self [id number] Medicaid S [id number] S [id number] Medicaid S [id number] S [id number] Medicaid Medicaid [id number] Self [id number] [place] Medicare Part B [id number] Self [id number] [facility] [id number] MEDICARE C [id number] S [id number] A Medicare Dme Supplies Medigap Part B [id number] 2.0.1.604671.3.227.99.991.84028.0 Self 1 [id number] [facility] C [id number] S [id number] Medicare Dme Supplies Medigap Part B [id number] 2.0.1.455770.3.227.99.991.67827.0 Self 1 [id number] Medicaid Medicaid [id number] 2.840.1.395228.3.227.99.936.80501.0 S elf [id number] Medicare Medicare Primary [id number] 2.16.840.1.782186.3.227. 99.936.12898.0 Self [id number] [facility] [employer] PLAN [facility] [id number] SP [id number] MEDICAID M UNAVAILABLE [id number] S UNAVAILA BLE SELF PAY ONLY [id number] SP [id number] [facility] P [id number] S [id number] [facility](MCAID) O [id number] S [id number] Self Pay P [id number] S [id number] [facility] P [id number] S [id number] Self Pay O UNAVAILABLE S UNAVAILA BLE [facility](MCAID) O [id number] S [id number] [facility] [id number] SP [id number] SELF PAY UNAVAILABLE UNAVAILA BLE BS [place] [employer] [id number] Self EXCELLUS BCBS B [id number] S VYS [id number] BLUE CROSS BLUE SHIELD -O/P [id number] BLUE CROSS BLUE SHIELD -CLINIC [id number] [place] [id number] SP [id number] F MEDICAID [id number] Nany [id number] MEDICAID [id number] xxxxxxxx [id number] MEDICARE [id number] [id number] MEDICARE [id number] SP [id number] MEDICARE [id number] Nany [id number] P19 [place] [id number] SP [id number] MEDICAID [id number] SP [id number] Medicare P [id number] S [id number] A Medicaid [place] Medigap Part B [id number] Self [id number] Medicare [place] Medicare Primary [id number] Self [id number] Medicare Dme Supplies Medigap Part B [id number] Self [id number] Medicare Dme Supplies Medigap Part B [id number] Self [id number] ANSI-Medicaid [id number] ANSI-Medicare Part B [id number] Medicare D[address] [facility] Part B [id number] Self [id number] Medicaid Medicaid [id number] Self [id number] Medicare Medicare Primary [id number] Self [id number] Medicare Dme [facility] Part B [id number] Self [id number] Medicaid Medicaid [id number] Self [id number] Medicare Medicare Primary [id number] Self [id number] [facility] [id number] Self [id number] Medicaid Medicaid [id number] MRN.[id number] Self [id number] Medicare Medicare Primary [id number] MRN.[id number] Self [id number] [facility]-Medicaid [id number] ANSI-Medicare Part B [id number] ANSI-Medicaid [id number] ANSI-Medicare Part B [id number] Medicaid [facility] Part B [id number] ..[id number] .1760.0 Self [id number] Medicare [facility] Medicare Primary [id number] ...513306.3.227.99.8646.1760.0 Self [id number] ANSI-Medicaid [id number] ANSI-Medicare Part B [id number] Medicare Dme Supplies Medigap Part B [id number] .1.057522.3.227.99.991.08527.0 Self 1 [id number] Medicaid [facility] Part [facility] [id number] .1.510549.3.227.99.8646 .1760.0 Self [id number] [place] Medicare Primary [id number] 2..1.854536.3.227.99.8646.1760.0 Self [id number] ANSI-Medicaid [id number] ANSI-Medicare Part B [id number] Medicare Dme Supplies Medigap Part B [id number] 2..1.042359.3.227.99.991.35885.0 Self 1 [id number] Medicare Dme Supplies Medigap Part B [id number] ...[id number].0 Self 1 [id number] ANSI-Medicare Part B [id number] ANSI-Medicaid [id number] Medicaid [place] Part [place] [id number] ..1.118459.3.227.99.8646 .1760.0 Self [id number] [place] Medicare Primary [id number] 2..1.585341.3.227.99.8646.1760.0 Self 1 [id number] Medicare Dme Supplies Medigap Part B [id number] 2..1.073756.3.227.99.991.98171.0 Self 1 [id number] Medicare Dme Supplies Medigap Part B [id number] .16.840.1.634039.3.227.99.991.63122.0 Self 1 [id number] MEDICARE [id number] SP [id number] A Medicare Dme Supplies Medigap Part B [id number] 2.16.840.1.325427.3.227.99.991.79399.0 Self 1 [id number] Medicare Dme Supplies Medigap Part B [id number] 2.16.840.1.107377.3.227.99.991.56177.0 Self 1 [id number] Medicare Dme Supplies Medigap Part B [id number] 2.16.840.1.003428.3.227.99.991.27573.0 Self 1 [id number] [place] [id number] 2.16840.1.004034.3.227.99.8646 .1760.0 Self [id number] [place]/[facility] Medicare Primary [id number] 2.0.1.682586.3.227.99.8646.1760.0 Self 1 [id number] Medicare Dme Supplies Medigap Part B [id number] 2.16840.1.845357.3.227.99.991.89578.0 Self 1 [id number] Medicare Dme Supplies Medigap Part B [id number] 2.16840.1.283657.3.227.99.991.29290.0 Self 1 [id number] Medicare Dme Supplies Medigap Part B [id number] 2.16840.1.183264.3.227.99.991.29787.0 Self 1 [id number] [place] B [id number] 2.16840.1.003568.3.227.99.8646 .1760.0 Self [id number] [place] Medicare Primary [id number] 2.16840.1.596515.3.227.99.8646.1760.0 Self 1 [id number] MEDICAID M [id number] S [id number] Problems, Conditions, and Diagnoses Code Display Name Description Problem Type Effective Dates Data Source(s) N18.30 Chronic kidney disease, stage 3 unspecif ied Chronic kidney disease, stage 3 unspecif Diagnosis 02/01/2021 10:02:54 AM EDT [facility] G47.33 Obstructive sleep apnea (adult) (pediatr ic) Obstructive sleep apnea (adult) (pediatr Diagnosis 02/01/2021 10:02:54 AM EDT [facility] F41.9 Anxiety disorder, unspecified Anxiety disorder, unspec ified Diagnosis 02/01/2021 10:02:54 AM EDT [facility] Z68.41 Body mass index (BMI) 40.0-44.9, adult B kati mass index (BMI) 40.0-44.9, adult Diagnosis 02/01/2021 10:02:54 AM EDT [facility] E66.01 Morbid (severe) obesity due to excess ca lories Morbid (severe) obesity due to excess ca Diagnosis 02/01/2021 10:02:54 AM EDT 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 N18.32 Chronic kidney disease, stage 3b Chronic kidney disease, stage 3b Diagnosis 02/01/2021 10:02:[address] [facility] E11.22 Type 2 diabetes mellitus with diabetic c hronic kidney disease Type 2 diabetes mellitus with diabetic c Diagnosis 02/01/2021 10:02:54 AM EDT [facility] I10 Essential (primary) hypertension Essential (primary) h ypertension Diagnosis 02/01/2021 10:02:54 AM EDT [facility] F01.51 Vascular dementia with behavioral distur bance Vascular dementia with behavioral distur Diagnosis 02/01/2021 10:02:54 AM EDT [facility] I25.5 Ischemic cardiomyopathy Ischemic cardiomyopathy Diagno sis 02/01/2021 10:02:54 AM EDT [facility] E78.5 Hyperlipidemia, unspecified Hyperlipidemia, unspecifie d Diagnosis 02/01/2021 10:02:[address] [facility] I25.83 Coronary atherosclerosis due to lipid ri ch plaque Coronary atherosclerosis due to lipid ri Diagnosis 02/01/2021 10:02:54 AM [facility] I25.10 Atherosclerotic heart diseas e of [place] coronary artery without angina pectoris Atherosclerotic heart disease of [place] Diagnosis 02/01/2021 10:02:[address] 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 Type 2 diabetes mellitus with diabetic n Diagnosis 07/13/2020 01:21:23 PM [facility] R07.89 Other chest pain Other chest pain Diagnosis 06/29/2020 09 :36:16 AM [facility] F01.50 Vascular dementia without behavioral dis turbance Vascular dementia without behavioral dis Diagnosis 06/29/2020 09:36:16 AM [facility] 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 Diagnosis 02/02/2020 09:15:22 AM [facility] E11.3299 Type 2 diabetes mellitus wit h mild nonproliferative diabetic retinopathy without macular edema, unspecified eye Type 2 diabetes mellitus with mild nonproliferative diabetic retinopathy without macular edema, unspecified eye Diagnosis 02/02/2020 09:15:19 AM [facility] E11.649 Type 2 diabetes mellitus with hypoglycem ia without coma Type 2 diabetes mellitus with hypoglycemia without coma Diagnosis 02/02/2020 09:15:06 AM [facility] Z68.41 Body mass index (BMI) 40.0-44.9, adult B kati mass index (BMI)40.0-44.9, adult Diagnosis 02/02/2020 09:14:46 AM [facility] E66.01 Morbid (severe) obesity due to excess ca lories Morbid (severe) obesity due to excess calories Diagnosis 02/02/2020 09:14:46 AM EDT [facility] R63.5 Abnormal weight gain Abnormal weight gain Diagnosis 02/02/2020 08:59:02 AM EDT [facility] E55.9 Vitamin D deficiency, unspecified Vitamin D defi ciency, unspecified Diagnosis 02/02/2020 08:59:02 AM EDT [facility] [id number] Essential hypertension Essential hypertension Problem 12/14/2020 12:00:00 AM EDT MEDENT ([facility] ) 282641936 Microalbuminuria Microalbuminuria Problem 10/14/2020 12 :00:00 AM EDT DANNA ([facility]) 856612781 Microalbuminuria Microalbuminuria Problem 10/14/2020 12 :00:00 AM EDT [facility] ([facility]) [id number] Microalbuminuria Microalbuminuria Problem 10/14/2020 12 :00:00 AM EDT [facility] ([facility]) 130308764 Microalbuminuria Microalbuminuria Problem 10/14/2020 12 :00:00 AM EDT [facility] ([facility]) F01.50 Vascular dementia without behavioral dis turbance Vascular dementia without behavioral disturbance [id number] 07/01/2020 12:00:00 AM [facility] R07.89 Chest pressure Chest pressure 29326448 07/01/2020 12:00: 00 AM [facility] E55.9 Vitamin D deficiency Vitamin D deficiency 43214909 06/27/2020 12:00:00 AM [facility] 66292041 Vitamin D deficiency Vitamin D Deficiency Problem 06/27/2020 12:00:00 AM EST [facility] ([facility]) 22400241 Vitamin D deficiency Vitamin D Deficiency Problem 06/27/2020 12:00:00 AM EST [facility] ([facility]) 31561723 Vitamin D deficiency Vitamin D Deficiency Problem 06/27/2020 12:00:00 AM EST [facility] ([facility]) 16448011 Vitamin D deficiency Vitamin D Deficiency Problem 06/27/2020 12:00:00 AM EST [facility] ([facility]) 56534748 Vitamin D deficiency Vitamin D Deficiency Problem 06/27/2020 12:00:00 AM EST DANNA ([facility]) 14990840 Vitamin D deficiency Vitamin D Deficiency Problem 06/27/2020 12:00:00 AM EST DANNA ([facility]) 25516369 Vitamin D deficiency Vitamin D Deficiency Problem 06/27/2020 12:00:00 AM EST DANNA ([facility]) 79224264 Vitamin D deficiency Vitamin D Deficiency Problem 06/27/2020 12:00:00 AM EST DANNA ([facility]) 31404407 Vitamin D deficiency Vitamin D Deficiency Problem 06/27/2020 12:00:00 AM EST DANNA ([facility]) G47.33 Obstructive sleep apnea syndrome Obstructive sle ep apnea syndrome 22278366 06/17/2020 12:00:00 AM [facility] E11.9 Type 2 diabetes mellitus Type 2 diabetes mellitus 6457 200006/17/2020 12:00:00 AM [facility] I25.10 Coronary arteriosclerosis Coronary arteriosclerosis 64 896908 06/17/2020 12:00:00 AM [facility] E66.01 Morbid obesity Morbid obesity 62767002 06/17/2020 12:00: 00 AM [facility] N18.30 Stage 3 chronic kidney disease Stage 3 chronic kidney disease 75019721 06/17/2020 12:00:00 AM [facility] G43.909 Migraine Migraine 94055830 06/17/2020 12:00:00 AM [facility] 164182058 Chronic kidney disease stage 3 Chronic Kidney Disease Stage 3 Problem 06/17/2020 12:00:00 AM EST DANNA ([facility]) 69458215 Coronary arteriosclerosis Coronary Arteriosclerosis Pr oblem 06/17/2020 12:00:00 AM EST DANNA ([facility]) 38801016 Migraine Migraine Problem 06/17/2020 12:00:00 AM KELLEY CLAY ([facility]) 35481253 Obstructive sleep apnea syndrome Obstructive Sle ep Apnea Syndrome Problem 06/17/2020 12:00:00 AM EST DANNA ([facility]) 662006097 Morbid obesity Morbid Obesity Problem 06/17/2020 12:00: 00 AM EST DANNA ([facility]) 14606596 Type 2 diabetes mellitus Type 2 Diabetes Mellitus Prob roberto 06/17/2020 12:00:00 AM EST DANNA ([facility]) 069922531 Chronic kidney disease stage 3 Chronic Kidney Disease Stage 3 Problem 06/17/2020 12:00:00 AM EST DANNA ([facility]) 48094271 Coronary arteriosclerosis Coronary Arteriosclerosis Pr oblem 06/17/2020 12:00:00 AM EST DANNA ([facility]) 86932334 Migraine Migraine Problem 06/17/2020 12:00:00 AM ES T DANNA ([facility]) 54188079 Obstructive sleep apnea syndrome Obstructive Sle ep Apnea Syndrome Problem 06/17/2020 12:00:00 AM EST DANNA ([facility]) 491841727 Morbid obesity Morbid Obesity Problem 06/17/2020 12:00: 00 AM EST DANNA ([facility]) 32328738 Type 2 diabetes mellitus Type 2 Diabetes Mellitus Prob roberto 06/17/2020 12:00:00 AM EST DANNA ([facility]) 039007471 Chronic kidney disease stage 3 Chronic Kidney Disease Stage 3 Problem 06/17/2020 12:00:00 AM EST DANNA ([facility]) 18697100 Coronary arteriosclerosis Coronary Arteriosclerosis Pr oblem 06/17/2020 12:00:00 AM EST DANNA ([facility]) 13570786 Migraine Migraine Problem 06/17/2020 12:00:00 AM ES T DANNA ([facility]) 86257484 Obstructive sleep apnea syndrome Obstructive Sle ep Apnea Syndrome Problem 06/17/2020 12:00:00 AM EST DANNA ([facility]) 745575953 Morbid obesity Morbid Obesity Problem 06/17/2020 12:00: 00 AM EST DANNA ([facility]) 22852406 Type 2 diabetes mellitus Type 2 Diabetes Mellitus Prob roberto 06/17/2020 12:00:00 AM EST DANNA ([facility]) 502196595 Chronic kidney disease stage 3 Chronic Kidney Disease Stage 3 Problem 06/17/2020 12:00:00 AM EST DANNA ([facility]) 71910771 Coronary arteriosclerosis Coronary Arteriosclerosis Pr oblem 06/17/2020 12:00:00 AM EST DANNA ([facility]) 13936736 Migraine Migraine Problem 06/17/2020 12:00:00 AM KELLEY [place] DANNA ([facility]) 57303181 Obstructive sleep apnea syndrome Obstructive Sle ep Apnea Syndrome Problem 06/17/2020 12:00:00 AM EST DANNA ([facility]) 541210386 Morbid obesity Morbid Obesity Problem 06/17/2020 12:00: 00 AM EST DANNA ([facility]) 54328340 Type 2 diabetes mellitus Type 2 Diabetes Mellitus Prob roberto 06/17/2020 12:00:00 AM EST DANNA ([facility]) 195872627 Chronic kidney disease stage 3 Chronic Kidney Disease Stage 3 Problem 06/17/2020 12:00:00 AM EST DANNA ([facility]) 74257762 Coronary arteriosclerosis Coronary Arteriosclerosis Pr oblem 06/17/2020 12:00:00 AM EST DANNA ([facility]) [id number] Migraine Migraine Problem 06/17/2020 12:00:00 AM ES Chaz DANNA ([facility]) [id number] Obstructive sleep apnea syndrome Obstructive Sle ep Apnea Syndrome Problem 06/17/2020 12:00:00 AM EST DANNA ([facility]) [id number] Morbid obesity Morbid Obesity Problem 06/17/2020 12:00: 00 AM EST DANNA ([facility]) [id number] Type 2 diabetes mellitus Type 2 Diabetes Mellitus Prob roberto 06/17/2020 12:00:00 AM EST DANNA ([facility]) [id number] Chronic kidney disease stage 3 Chronic Kidney Disease Stage 3 Problem 06/17/2020 12:00:00 AM EST DANNA ([facility]) [id number] Coronary arteriosclerosis Coronary Arteriosclerosis Pr oblem 06/17/2020 12:00:00 AM EST DANNA ([facility]) [id number] Migraine Migraine Problem 06/17/2020 12:00:00 AM ES Chaz DANNA ([facility]) [id number] Obstructive sleep apnea syndrome Obstructive Sle ep Apnea Syndrome Problem 06/17/2020 12:00:00 AM EST DANNA ([facility]) [id number] Morbid obesity Morbid Obesity Problem 06/17/2020 12:00: 00 AM EST DANNA ([facility]) [id number] Type 2 diabetes mellitus Type 2 Diabetes Mellitus Prob roberto 06/17/2020 12:00:00 AM EST DANNA ([facility]) [id number] Chronic kidney disease stage 3 Chronic Kidney Disease Stage 3 Problem 06/17/2020 12:00:00 AM EST DANNA ([facility]) [id number] Coronary arteriosclerosis Coronary Arteriosclerosis Pr oblem 06/17/2020 12:00:00 AM EST DANNA ([facility]) [id number] Migraine Migraine Problem 06/17/2020 12:00:00 AM KELLEY MARTINEZENA ([facility]) [id number] Obstructive sleep apnea syndrome Obstructive Sle ep Apnea Syndrome Problem 06/17/2020 12:00:00 AM EST DANNA ([facility]) [id number] Morbid obesity Morbid Obesity Problem 06/17/2020 12:00: 00 AM EST DANNA ([facility]) [id number] Type 2 diabetes mellitus Type 2 Diabetes Mellitus Prob roberto 06/17/2020 12:00:00 AM EST DANNA ([facility]) [id number] Chronic kidney disease stage 3 Chronic Kidney Disease Stage 3 Problem 06/17/2020 12:00:00 AM EST DANNA ([facility]) [id number] Coronary arteriosclerosis Coronary Arteriosclerosis Pr oblem 06/17/2020 12:00:00 AM EST DANNA ([facility]) [id number] Migraine Migraine Problem 06/17/2020 12:00:00 AM ES Chaz DANNA ([facility]) [id number] Obstructive sleep apnea syndrome Obstructive Sle ep Apnea Syndrome Problem 06/17/2020 12:00:00 AM EST DANNA ([facility]) [id number] Morbid obesity Morbid Obesity Problem 06/17/2020 12:00: 00 AM EST DANNA ([facility]) [id number] Type 2 diabetes mellitus Type 2 Diabetes Mellitus Prob roberto 06/17/2020 12:00:00 AM EST DANNA ([facility]) [id number] Chronic kidney disease stage 3 Chronic Kidney Disease Stage 3 Problem 06/17/2020 12:00:00 AM EST DANNA ([facility]) [id number] Coronary arteriosclerosis Coronary Arteriosclerosis Pr oblem 06/17/2020 12:00:00 AM EST DANNA ([facility]) [id number] Migraine Migraine Problem 06/17/2020 12:00:00 AM ES T DANNA ([facility]) [id number] Obstructive sleep apnea syndrome Obstructive Sle ep Apnea Syndrome Problem 06/17/2020 12:00:00 AM EST DANNA ([facility]) [id number] Morbid obesity Morbid Obesity Problem 06/17/2020 12:00: 00 AM EST DANNA ([facility]) [id number] Type 2 diabetes mellitus Type 2 Diabetes Mellitus Prob roberto 06/17/2020 12:00:00 AM EST DANNA ([facility]) [id number] Chronic kidney disease stage 3 Chronic Kidney Disease Stage 3 Problem 06/17/2020 12:00:00 AM EST DANNA ([facility]) [id number] Coronary arteriosclerosis Coronary Arteriosclerosis Pr oblem 06/17/2020 12:00:00 AM EST DANNA ([facility]) [id number] Migraine Migraine Problem 06/17/2020 12:00:00 AM KELLEY MARTINEZENA ([facility]) [id number] Obstructive sleep apnea syndrome Obstructive Sle ep Apnea Syndrome Problem 06/17/2020 12:00:00 AM EST DANNA ([facility]) [id number] Morbid obesity Morbid Obesity Problem 06/17/2020 12:00: 00 AM EST DANNA ([facility]) [id number] Type 2 diabetes mellitus Type 2 Diabetes Mellitus Prob roberto 06/17/2020 12:00:00 AM EST DANNA ([facility]) V68.89 Encounters for other specified administr ative purpose Encounters for other specified administrative purpose 02/14/2020 01:00:24 P M EDT [facility] 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, unspecified Arthritis of wrist 01:00:24 PM EDT [facility] V04.81 Needs influenza immunization Needs influenza immunizat ion 02/11/2020 06:40:51 PM EDT [facility] [id number] Under immunized Under Immunized Problem 0 12:00:00 AM EDT - 06/17/2020 12:00:00 AM EST DANNA ([facility]) [id number] History and physical examination, admini strative History and Physical Examination, Administrative Problem 02/11/2020 12:00:00 AM EDT - 06/17/2020 12:00:00 AM EST DANNA ([facility]) [id number] Arthropathy Arthropathy Problem 02/11/2020 12:0 0:00 AM EDT - 06/17/2020 12:00:00 AM EST DANNA ([facility]) [id number] Under immunized Under Immunized Problem 0 12:00:00 AM EDT - 06/17/2020 12:00:00 AM EST DANNA ([facility]) [id number] History and physical examination, admini strative History and Physical Examination, Administrative Problem 02/11/2020 12:00:00 AM EDT - 06/17/2020 12:00:00 AM EST DANNA ([facility]) [id number] Arthropathy Arthropathy Problem 02/11/2020 12:0 0:00 AM EDT - 06/17/2020 12:00:00 AM EST DANNA ([facility]) [id number] Under immunized Under Immunized Problem 0 12:00:00 AM EDT - 06/17/2020 12:00:00 AM EST DANNA ([facility]) [id number] History and physical examination, admini strative History and Physical Examination, Administrative Problem 02/11/2020 12:00:00 AM EDT - 06/17/2020 12:00:00 AM EST DANNA ([facility]) [id number] Arthropathy Arthropathy Problem 02/11/2020 12:0 0:00 AM EDT - 06/17/2020 12:00:00 AM EST DANNA ([facility]) [id number] Under immunized Under Immunized Problem 0 12:00:00 AM EDT - 06/17/2020 12:00:00 AM EST DANNA ([facility]) [id number] History and physical examination, admini strative History and Physical Examination, Administrative Problem 02/11/2020 12:00:00 AM EDT - 06/17/2020 12:00:00 AM EST DANNA ([facility]) [id number] Arthropathy Arthropathy Problem 02/11/2020 12:0 0:00 AM EDT - 06/17/2020 12:00:00 AM EST DANNA ([facility]) [id number] Under immunized Under Immunized Problem 0 12:00:00 AM EDT - 06/17/2020 12:00:00 AM EST DANNA ([facility]) [id number] History and physical examination, admini strative History and Physical Examination, Administrative Problem 02/11/2020 12:00:00 AM EDT - 06/17/2020 12:00:00 AM EST DANNA ([facility]) [id number] Arthropathy Arthropathy Problem 02/11/2020 12:0 0:00 AM EDT - 06/17/2020 12:00:00 AM EST DANNA ([facility]) [id number] Under immunized Under Immunized Problem 0 12:00:00 AM EDT - 06/17/2020 12:00:00 AM EST DANNA ([facility]) [id number] History and physical examination, admini strative History and Physical Examination, Administrative Problem 02/11/2020 12:00:00 AM EDT - 06/17/2020 12:00:00 AM EST DANNA ([facility]) [id number] Arthropathy Arthropathy Problem 02/11/2020 12:0 0:00 AM EDT - 06/17/2020 12:00:00 AM EST DANNA ([facility]) [id number] Under immunized Under Immunized Problem 0 12:00:00 AM EDT - 06/17/2020 12:00:00 AM EST DANNA ([facility]) [id number] History and physical examination, admini strative History and Physical Examination, Administrative Problem 02/11/2020 12:00:00 AM EDT - 06/17/2020 12:00:00 AM EST DANNA ([facility]) [id number] Arthropathy Arthropathy Problem 02/11/2020 12:0 0:00 AM EDT - 06/17/2020 12:00:00 AM EST DANNA ([facility]) [id number] Under immunized Under Immunized Problem 0 12:00:00 AM EDT - 06/17/2020 12:00:00 AM EST DANNA ([facility]) [id number] History and physical examination, admini strative History and Physical Examination, Administrative Problem 02/11/2020 12:00:00 AM EDT - 06/17/2020 12:00:00 AM EST DANNA ([facility]) [id number] Arthropathy Arthropathy Problem 02/11/2020 12:0 0:00 AM EDT - 06/17/2020 12:00:00 AM EST DANNA ([facility]) [id number] Under immunized Under Immunized Problem 0 12:00:00 AM EDT - 06/17/2020 12:00:00 AM EST DANNA ([facility]) [id number] History and physical examination, admini strative History and Physical Examination, Administrative Problem 02/11/2020 12:00:00 AM EDT - 06/17/2020 12:00:00 AM EST DANNA ([facility]) [id number] Arthropathy Arthropathy Problem 02/11/2020 12:0 0:00 AM EDT - 06/17/2020 12:00:00 AM EST DANNA ([facility]) [id number] Under immunized Under Immunized Problem 0 12:00:00 AM EDT - 06/17/2020 12:00:00 AM EST DANNA ([facility]) [id number] History and physical examination, admini strative History and Physical Examination, Administrative Problem 02/11/2020 12:00:00 AM EDT - 06/17/2020 12:00:00 AM EST DANNA ([facility]) [id number] Arthropathy Arthropathy Problem 02/11/2020 12:0 0:00 AM EDT - 06/17/2020 12:00:00 AM EST DANNA ([facility]) E66.01 Morbid obesity with BMI of 40.0-44.9, ad ult Morbid obesity with BMI of 40.0-44.9, adult [id number] 02/02/2020 12:00:00 AM EDT [facility] 525.10 Teeth extraction Teeth extraction 01/28/2020 04 :27:02 PM EDT [facility] Z01.818 Pre-op evaluation Pre-op evaluation [id number] 01/15/2020 12:00:00 AM EDT [facility] [id number] Patient asked to attend Patient Asked to Attend [facility] 10/13/2019 12:00:00 AM EDT - 06/17/2020 12:00:00 AM EST DANNA ([facility]) [id number] General finding of observation of patien t General Finding of Observation of Patient Problem 10/13/2019 12:00:00 AM EDT - 06/17/2020 12:00:00 AM EST DANNA ([facility]) [id number] Patient asked to attend Patient Asked to Attend [facility] 10/13/2019 12:00:00 AM EDT - 06/17/2020 12:00:00 AM EST DANNA ([facility]) [id number] General finding of observation of patien t General Finding of Observation of Patient Problem 10/13/2019 12:00:00 AM EDT - 06/17/2020 12:00:00 AM EST DANNA ([facility]) [id number] Patient asked to attend Patient Asked to Attend [facility] 10/13/2019 12:00:00 AM EDT - 06/17/2020 12:00:00 AM EST DANNA ([facility]) [id number] General finding of observation of patien t General Finding of Observation of Patient Problem 10/13/2019 12:00:00 AM EDT - 06/17/2020 12:00:00 AM EST DANNA ([facility]) [id number] Patient asked to attend Patient Asked to Attend [facility] 10/13/2019 12:00:00 AM EDT - 06/17/2020 12:00:00 AM EST DANNA ([facility]) [id number] General finding of observation of patien t General Finding of Observation of Patient Problem 10/13/2019 12:00:00 AM EDT - 06/17/2020 12:00:00 AM EST DANNA ([facility]) [id number] Patient asked to attend Patient Asked to Attend [facility] 10/13/2019 12:00:00 AM EDT - 06/17/2020 12:00:00 AM EST DANNA ([facility]) [id number] General finding of observation of patien t General Finding of Observation of Patient Problem 10/13/2019 12:00:00 AM EDT - 06/17/2020 12:00:00 AM EST DANNA ([facility]) [id number] Patient asked to attend Patient Asked to Attend [facility] 10/13/2019 12:00:00 AM EDT - 06/17/2020 12:00:00 AM EST DANNA ([facility]) [id number] General finding of observation of patien t General Finding of Observation of Patient Problem 10/13/2019 12:00:00 AM EDT - 06/17/2020 12:00:00 AM EST DANNA ([facility]) [id number] Patient asked to attend Patient Asked to Attend [facility] 10/13/2019 12:00:00 AM EDT - 06/17/2020 12:00:00 AM EST DANNA ([facility]) [id number] General finding of observation of patien t General Finding of Observation of Patient Problem 10/13/2019 12:00:00 AM EDT - 06/17/2020 12:00:00 AM EST DANNA ([facility]) [id number] Patient asked to attend Patient Asked to Attend [facility] 10/13/2019 12:00:00 AM EDT - 06/17/2020 12:00:00 AM EST DANNA ([facility]) [id number] General finding of observation of patien t General Finding of Observation of Patient Problem 10/13/2019 12:00:00 AM EDT - 06/17/2020 12:00:00 AM EST DANNA ([facility]) [id number] Patient asked to attend Patient Asked to Attend [facility] 10/13/2019 12:00:00 AM EDT - 06/17/2020 12:00:00 AM EST DANNA ([facility]) [id number] General finding of observation of patien t General Finding of Observation of Patient Problem 10/13/2019 12:00:00 AM EDT - 06/17/2020 12:00:00 AM EST DANNA ([facility]) [id number] Patient asked to attend Patient Asked to Attend [facility] 10/13/2019 12:00:00 AM EDT - 06/17/2020 12:00:00 AM EST DANNA ([facility]) [id number] General finding of observation of patien t General Finding of Observation of Patient Problem 10/13/2019 12:00:00 AM EDT - 06/17/2020 12:00:00 AM EST DANNA ([facility]) [id number] Chronic kidney disease stage 3 Chronic Kidney Disease Stage 3 Problem 05/01/2019 12:00:00 AM EST - 06/17/2020 12:00:00 AM EST DANNA ([facility]) [id number] Chronic kidney disease stage 3 Chronic Kidney Disease Stage 3 Problem 05/01/2019 12:00:00 AM EST - 06/17/2020 12:00:00 AM EST DANNA ([facility]) [id number] Chronic kidney disease stage 3 Chronic Kidney Disease Stage 3 Problem 05/01/2019 12:00:00 AM EST - 06/17/2020 12:00:00 AM EST DANNA ([facility]) [id number] Chronic kidney disease stage 3 Chronic Kidney Disease Stage 3 Problem 05/01/2019 12:00:00 AM EST - 06/17/2020 12:00:00 AM EST DANNA ([facility]) [id number] Chronic kidney disease stage 3 Chronic Kidney Disease Stage 3 Problem 05/01/2019 12:00:00 AM EST - 06/17/2020 12:00:00 AM EST DANNA ([facility]) [id number] Chronic kidney disease stage 3 Chronic Kidney Disease Stage 3 Problem 05/01/2019 12:00:00 AM EST - 06/17/2020 12:00:00 AM EST DANNA ([facility]) [id number] Chronic kidney disease stage 3 Chronic Kidney Disease Stage 3 Problem 05/01/2019 12:00:00 AM EST - 06/17/2020 12:00:00 AM EST DANNA ([facility]) [id number] Chronic kidney disease stage 3 Chronic Kidney Disease Stage 3 Problem 05/01/2019 12:00:00 AM EST - 06/17/2020 12:00:00 AM EST DANNA ([facility]) [id number] Chronic kidney disease stage 3 Chronic Kidney Disease Stage 3 Problem 05/01/2019 12:00:00 AM EST - 06/17/2020 12:00:00 AM EST DANNA ([facility]) [id number] Chronic kidney disease stage 3 Chronic Kidney Disease Stage 3 Problem 05/01/2019 12:00:00 AM EST - 06/17/2020 12:00:00 AM EST DANNA ([facility]) [id number] Evaluation finding Evaluation Finding Problem 12:00:00 AM EST - 06/17/2020 12:00:00 AM EST DANNA ([facility]) [id number] Evaluation finding Evaluation Finding Problem 12:00:00 AM EST - 06/17/2020 12:00:00 AM EST DANNA ([facility]) [id number] Evaluation finding Evaluation Finding Problem 12:00:00 AM EST - 06/17/2020 12:00:00 AM EST DANNA ([facility]) [id number] Evaluation finding Evaluation Finding Problem 12:00:00 AM EST - 06/17/2020 12:00:00 AM EST DANNA ([facility]) [id number] Evaluation finding Evaluation Finding Problem 12:00:00 AM EST - 06/17/2020 12:00:00 AM EST DANNA ([facility]) [id number] Evaluation finding Evaluation Finding Problem 12:00:00 AM EST - 06/17/2020 12:00:00 AM EST DANNA ([facility]) [id number] Evaluation finding Evaluation Finding Problem 12:00:00 AM EST - 06/17/2020 12:00:00 AM EST DANNA ([facility]) [id number] Evaluation finding Evaluation Finding Problem 12:00:00 AM EST - 06/17/2020 12:00:00 AM EST DANNA ([facility]) [id number] Evaluation finding Evaluation Finding Problem 12:00:00 AM EST - 06/17/2020 12:00:00 AM EST DANNA ([facility]) [id number] Evaluation finding Evaluation Finding Problem 12:00:00 AM EST - 06/17/2020 12:00:00 AM EST DANNA ([facility]) [id number] 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 Problem 04/14/2019 12:00:00 AM EST - 06/17/2020 12:00:00 AM KELLEY CLAY ([facility]) [id number] 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 Problem 04/14/2019 12:00:00 AM EST - 06/17/2020 12:00:00 AM KELLEY CLAY ([facility]) [id number] 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 Problem 04/14/2019 12:00:00 AM EST - 06/17/2020 12:00:00 AM KELLEY CLAY ([facility]) [id number] 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 Problem 04/14/2019 12:00:00 AM EST - 06/17/2020 12:00:00 AM KELLEY CLYA ([facility]) [id number] 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 Problem 04/14/2019 12:00:00 AM EST - 06/17/2020 12:00:00 AM ES Chaz DANNA ([facility]) [id number] 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 Problem 04/14/2019 12:00:00 AM EST - 06/17/2020 12:00:00 AM ES Chaz DANNA ([facility]) [id number] 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 Problem 04/14/2019 12:00:00 AM EST - 06/17/2020 12:00:00 AM KELLEY CLAY ([facility]) [id number] 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 Problem 04/14/2019 12:00:00 AM EST - 06/17/2020 12:00:00 AM KELLEY CLAY ([facility]) [id number] 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 Problem 04/14/2019 12:00:00 AM EST - 06/17/2020 12:00:00 AM KELLEY CLAY ([facility]) [id number] 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 Problem 04/14/2019 12:00:00 AM EST - 06/17/2020 12:00:00 AM KELLEY CLAY ([facility]) [id number] Clinical finding Clinical Finding Problem 12:00:00 AM EST - 06/17/2020 12:00:00 AM EST DANNA ([facility]) [id number] Clinical finding Clinical Finding Problem 019 12:00:00 AM EST - 06/17/2020 12:00:00 AM EST DANNA ([facility]) [id number] Clinical finding Clinical Finding Problem 12:00:00 AM EST - 06/17/2020 12:00:00 AM EST DANNA ([facility]) [id number] Clinical finding Clinical Finding Problem 019 12:00:00 AM EST - 06/17/2020 12:00:00 AM EST DANNA ([facility]) [id number] Clinical finding Clinical Finding Problem 019 12:00:00 AM EST - 06/17/2020 12:00:00 AM EST DANNA ([facility]) [id number] Clinical finding Clinical Finding Problem 019 12:00:00 AM EST - 06/17/2020 12:00:00 AM EST DANNA ([facility]) [id number] Clinical finding Clinical Finding Problem 019 12:00:00 AM EST - 06/17/2020 12:00:00 AM EST DANNA ([facility]) [id number] Clinical finding Clinical Finding Problem 12:00:00 AM EST - 06/17/2020 12:00:00 AM EST DANNA ([facility]) [id number] Clinical finding Clinical Finding Problem 12:00:00 AM EST - 06/17/2020 12:00:00 AM EST DANNA ([facility]) [id number] Clinical finding Clinical Finding Problem 12:00:00 AM EST - 06/17/2020 12:00:00 AM EST DANNA ([facility]) [id number] 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 Length Loss Secondary to Dental Caries Problem 01/02/2019 12:00:00 AM EDT - 06/17/2020 12:00:00 AM EST DANNA ([facility]) [id number] 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 Length Loss Secondary to Dental Caries Problem 01/02/2019 12:00:00 AM EDT - 06/17/2020 12:00:00 AM EST DANNA ([facility]) [id number] 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 Length Loss Secondary to Dental Caries Problem 01/02/2019 12:00:00 AM EDT - 06/17/2020 12:00:00 AM EST DANNA ([facility]) [id number] 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 Length Loss Secondary to Dental Caries Problem 01/02/2019 12:00:00 AM EDT - 06/17/2020 12:00:00 AM EST DANNA ([facility]) [id number] 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 Length Loss Secondary to Dental Caries Problem 01/02/2019 12:00:00 AM EDT - 06/17/2020 12:00:00 AM EST DANNA ([facility]) [id number] 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 Length Loss Secondary to Dental Caries Problem 01/02/2019 12:00:00 AM EDT - 06/17/2020 12:00:00 AM EST DANNA ([facility]) [id number] 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 Length Loss Secondary to Dental Caries Problem 01/02/2019 12:00:00 AM EDT - 06/17/2020 12:00:00 AM EST DANNA ([facility]) [id number] 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 Length Loss Secondary to Dental Caries Problem 01/02/2019 12:00:00 AM EDT - 06/17/2020 12:00:00 AM EST DANNA ([facility]) [id number] 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 Length Loss Secondary to Dental Caries Problem 01/02/2019 12:00:00 AM EDT - 06/17/2020 12:00:00 AM EST DANNA ([facility]) [id number] 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 Length Loss Secondary to Dental Caries Problem 01/02/2019 12:00:00 AM EDT - 06/17/2020 12:00:00 AM EST DANNA ([facility]) [id number] Right upper quadrant pain Right Upper Quadrant Pain Pr oblem 10/23/2018 12:00:00 AM EDT - 06/17/2020 12:00:00 AM EST DANNA ([facility]) [id number] Right upper quadrant pain Right Upper Quadrant Pain Pr oblem 10/23/2018 12:00:00 AM EDT - 06/17/2020 12:00:00 AM EST DANNA ([facility]) [id number] Right upper quadrant pain Right Upper Quadrant Pain Pr oblem 10/23/2018 12:00:00 AM EDT - 06/17/2020 12:00:00 AM EST DANNA ([facility]) [id number] Right upper quadrant pain Right Upper Quadrant Pain Pr oblem 10/23/2018 12:00:00 AM EDT - 06/17/2020 12:00:00 AM EST DANNA ([facility]) [id number] Right upper quadrant pain Right Upper Quadrant Pain Pr oblem 10/23/2018 12:00:00 AM EDT - 06/17/2020 12:00:00 AM EST DANNA ([facility]) [id number] Right upper quadrant pain Right Upper Quadrant Pain Pr oblem 10/23/2018 12:00:00 AM EDT - 06/17/2020 12:00:00 AM EST DANNA ([facility]) [id number] Right upper quadrant pain Right Upper Quadrant Pain Pr oblem 10/23/2018 12:00:00 AM EDT - 06/17/2020 12:00:00 AM EST DANNA ([facility]) [id number] Right upper quadrant pain Right Upper Quadrant Pain Pr oblem 10/23/2018 12:00:00 AM EDT - 06/17/2020 12:00:00 AM EST DANNA ([facility]) [id number] Right upper quadrant pain Right Upper Quadrant Pain Pr oblem 10/23/2018 12:00:00 AM EDT - 06/17/2020 12:00:00 AM EST DANNA ([facility]) [id number] Right upper quadrant pain Right Upper Quadrant Pain Pr oblem 10/23/2018 12:00:00 AM EDT - 06/17/2020 12:00:00 AM EST DANNA ([facility]) [id number] Influenza vaccine needed Influenza Vaccine Needed Pro blem 06/17/2018 12:00:00 AM EST - 06/17/2020 12:00:00 AM EST DANNA ([facility]) [id number] Influenza vaccine needed Influenza Vaccine Needed Pro blem 06/17/2018 12:00:00 AM EST - 06/17/2020 12:00:00 AM EST DANNA ([facility]) [id number] Influenza vaccine needed Influenza Vaccine Needed Pro blem 06/17/2018 12:00:00 AM EST - 06/17/2020 12:00:00 AM EST DANNA ([facility]) [id number] Influenza vaccine needed Influenza Vaccine Needed Pro blem 06/17/2018 12:00:00 AM EST - 06/17/2020 12:00:00 AM EST DANNA ([facility]) [id number] Influenza vaccine needed Influenza Vaccine Needed Pro blem 06/17/2018 12:00:00 AM EST - 06/17/2020 12:00:00 AM EST DANNA ([facility]) [id number] Influenza vaccine needed Influenza Vaccine Needed Pro blem 06/17/2018 12:00:00 AM EST - 06/17/2020 12:00:00 AM EST DANNA ([facility]) [id number] Influenza vaccine needed Influenza Vaccine Needed Pro blem 06/17/2018 12:00:00 AM EST - 06/17/2020 12:00:00 AM EST DANNA ([facility]) [id number] Influenza vaccine needed Influenza Vaccine Needed Pro blem 06/17/2018 12:00:00 AM EST - 06/17/2020 12:00:00 AM EST DANNA ([facility]) [id number] Influenza vaccine needed Influenza Vaccine Needed Pro blem 06/17/2018 12:00:00 AM EST - 06/17/2020 12:00:00 AM EST DANNA ([facility]) [id number] Influenza vaccine needed Influenza Vaccine Needed Pro blem 06/17/2018 12:00:00 AM EST - 06/17/2020 12:00:00 AM EST DANNA ([facility]) [id number] Disorder of external ear Disorder of External Ear Prob roberto 03/20/2017 12:00:00 AM EST - 06/17/2020 12:00:00 AM EST DANNA ([facility]) [id number] Disorder of external ear Disorder of External Ear Prob roberto 03/20/2017 12:00:00 AM EST - 06/17/2020 12:00:00 AM EST DANNA ([facility]) [id number] Disorder of external ear Disorder of External Ear Prob roberto 03/20/2017 12:00:00 AM EST - 06/17/2020 12:00:00 AM EST DANNA ([facility]) [id number] Disorder of external ear Disorder of External Ear Prob roberto 03/20/2017 12:00:00 AM EST - 06/17/2020 12:00:00 AM EST DANNA ([facility]) [id number] Disorder of external ear Disorder of External Ear Prob roberto 03/20/2017 12:00:00 AM EST - 06/17/2020 12:00:00 AM EST DANNA ([facility]) [id number] Disorder of external ear Disorder of External Ear Prob roberto 03/20/2017 12:00:00 AM EST - 06/17/2020 12:00:00 AM EST DANNA ([facility]) [id number] Disorder of external ear Disorder of External Ear Prob roberto 03/20/2017 12:00:00 AM EST - 06/17/2020 12:00:00 AM EST DANNA ([facility]) [id number] Disorder of external ear Disorder of External Ear Prob roberto 03/20/2017 12:00:00 AM EST - 06/17/2020 12:00:00 AM EST DANNA ([facility]) [id number] Disorder of external ear Disorder of External Ear Prob roberto 03/20/2017 12:00:00 AM EST - 06/17/2020 12:00:00 AM EST DANNA ([facility]) [id number] Disorder of external ear Disorder of External Ear Prob roberto 03/20/2017 12:00:00 AM EST - 06/17/2020 12:00:00 AM EST DANNA ([facility]) [id number] Pain in left knee Pain in Left Knee Problem 12:00:00 AM EDT - 06/17/2020 12:00:00 AM EST DANNA ([facility]) [id number] Pain in left knee Pain in Left Knee Problem 12:00:00 AM EDT - 06/17/2020 12:00:00 AM EST DANNA ([facility]) [id number] Pain in left knee Pain in Left Knee Problem 12:00:00 AM EDT - 06/17/2020 12:00:00 AM EST DANNA ([facility]) [id number] Pain in left knee Pain in Left Knee Problem 12:00:00 AM EDT - 06/17/2020 12:00:00 AM EST DANNA ([facility]) [id number] Pain in left knee Pain in Left Knee Problem 12:00:00 AM EDT - 06/17/2020 12:00:00 AM EST DANNA ([facility]) [id number] Pain in left knee Pain in Left Knee Problem 12:00:00 AM EDT - 06/17/2020 12:00:00 AM EST DANNA ([facility]) [id number] Pain in left knee Pain in Left Knee Problem 12:00:00 AM EDT - 06/17/2020 12:00:00 AM EST DANNA ([facility]) [id number] Pain in left knee Pain in Left Knee Problem 12:00:00 AM EDT - 06/17/2020 12:00:00 AM EST DANNA ([facility]) [id number] Pain in left knee Pain in Left Knee Problem 12:00:00 AM EDT - 06/17/2020 12:00:00 AM EST DANNA ([facility]) [id number] Pain in left knee Pain in Left Knee Problem 12:00:00 AM EDT - 06/17/2020 12:00:00 AM VIOLETTA CLAY ([facility]) [id number] Breast neoplasm screening status Breast Neoplasm Screening Status Problem 10/10/2016 12:00:00 AM EDT - 06/17/2020 12:00:00 AM KELLEY Ware DANNA ([facility]) [id number] Breast neoplasm screening status Breast Neoplasm Screening Status Problem 10/10/2016 12:00:00 AM EDT - 06/17/2020 12:00:00 AM KELLEY Chaz DANNA ([facility]) [id number] Breast neoplasm screening status Breast Neoplasm Screening Status Problem 10/10/2016 12:00:00 AM EDT - 06/17/2020 12:00:00 AM KELLEY Ware DANNA ([facility]) [id number] Breast neoplasm screening status Breast Neoplasm Screening Status Problem 10/10/2016 12:00:00 AM EDT - 06/17/2020 12:00:00 AM ES Chaz DANNA ([facility]) [id number] Breast neoplasm screening status Breast Neoplasm Screening Status Problem 10/10/2016 12:00:00 AM EDT - 06/17/2020 12:00:00 AM KELLEY Ware DANNA ([facility]) [id number] Breast neoplasm screening status Breast Neoplasm Screening Status Problem 10/10/2016 12:00:00 AM EDT - 06/17/2020 12:00:00 AM KELLEY CLAY ([facility]) [id number] Breast neoplasm screening status Breast Neoplasm Screening Status Problem 10/10/2016 12:00:00 AM EDT - 06/17/2020 12:00:00 AM KELLEY CLAY ([facility]) [id number] Breast neoplasm screening status Breast Neoplasm Screening Status Problem 10/10/2016 12:00:00 AM EDT - 06/17/2020 12:00:00 AM KELLEY CLAY ([facility]) [id number] Breast neoplasm screening status Breast Neoplasm Screening Status Problem 10/10/2016 12:00:00 AM EDT - 06/17/2020 12:00:00 AM KELLEY CLAY ([facility]) [id number] Breast neoplasm screening status Breast Neoplasm Screening Status Problem 10/10/2016 12:00:00 AM EDT - 06/17/2020 12:00:00 AM KELLEY CLAY ([facility]) [id number] Cellulitis Cellulitis Problem 08/14/2016 12:0 0:00 AM EDT - 06/17/2020 12:00:00 AM VIOLETTA CLAY ([facility]) [id number] Inflammatory disorder of extremity Inflammatory Disorder of Extremity Problem 08/14/2016 12:00:00 AM EDT - 06/17/2020 12:00:00 AM KELLEY CLAY ([facility]) [id number] Cellulitis Cellulitis Problem 08/14/2016 12:0 0:00 AM EDT - 06/17/2020 12:00:00 AM VIOLETTA DANNA ([facility]) [id number] Cellulitis Cellulitis Problem 08/14/2016 12:0 0:00 AM EDT - 06/17/2020 12:00:00 AM EST DANNA ([facility]) [id number] Inflammatory disorder of extremity Inflammatory Disorder of Extremity Problem 08/14/2016 12:00:00 AM EDT - 06/17/2020 12:00:00 AM KELLEY MARTINEZENA ([facility]) [id number] Inflammatory disorder of extremity Inflammatory Disorder of Extremity Problem 08/14/2016 12:00:00 AM EDT - 06/17/2020 12:00:00 AM KELLEY Chaz DANNA ([facility]) [id number] Inflammatory disorder of extremity Inflammatory Disorder of Extremity Problem 08/14/2016 12:00:00 AM EDT - 06/17/2020 12:00:00 AM KELLEY CLAY ([facility]) [id number] Inflammatory disorder of extremity Inflammatory Disorder of Extremity Problem 08/14/2016 12:00:00 AM EDT - 06/17/2020 12:00:00 AM KELLEY CLAY ([facility]) [id number] Inflammatory disorder of extremity Inflammatory Disorder of Extremity Problem 08/14/2016 12:00:00 AM EDT - 06/17/2020 12:00:00 AM KELLEY CLAY ([facility]) [id number] Inflammatory disorder of extremity Inflammatory Disorder of Extremity Problem 08/14/2016 12:00:00 AM EDT - 06/17/2020 12:00:00 AM KLELEY CLAY ([facility]) [id number] Sinusitis Sinusitis Problem 05/08/2016 12:0 0:00 AM EST - 10/03/2020 12:00:00 AM EDT DANNA ([facility]) [id number] Sinusitis Sinusitis Problem 05/08/2016 12:0 0:00 AM EST - 10/03/2020 12:00:00 AM EDT DANNA ([facility]) [id number] Sinusitis Sinusitis Problem 05/08/2016 12:0 0:00 AM EST - 10/03/2020 12:00:00 AM EDT DANNA ([facility]) [id number] Sinusitis Sinusitis Problem 05/08/2016 12:0 0:00 AM EST - 10/03/2020 12:00:00 AM EDT DANNA ([facility]) [id number] Sinusitis Sinusitis Problem 05/08/2016 12:0 0:00 AM EST - 10/03/2020 12:00:00 AM EDT DANNA ([facility]) [id number] Sinusitis Sinusitis Problem 05/08/2016 12:0 0:00 AM EST - 10/03/2020 12:00:00 AM EDT DANNA ([facility]) [id number] Renal function tests abnormal Renal Function Tests Abn ormal Problem 07/28/2015 12:00:00 AM EDT - 06/17/2020 12:00:00 AM EST DANNA ([facility]) [id number] Renal function tests abnormal Renal Function Tests Abn ormal Problem 07/28/2015 12:00:00 AM EDT - 06/17/2020 12:00:00 AM EST DANNA ([facility]) [id number] Renal function tests abnormal Renal Function Tests Abn ormal Problem 07/28/2015 12:00:00 AM EDT - 06/17/2020 12:00:00 AM EST DANNA ([facility]) [id number] Renal function tests abnormal Renal Function Tests Abn ormal Problem 07/28/2015 12:00:00 AM EDT - 06/17/2020 12:00:00 AM EST DANNA ([facility]) [id number] Renal function tests abnormal Renal Function Tests Abn ormal Problem 07/28/2015 12:00:00 AM EDT - 06/17/2020 12:00:00 AM EST DANNA ([facility]) [id number] Renal function tests abnormal Renal Function Tests Abn ormal Problem 07/28/2015 12:00:00 AM EDT - 06/17/2020 12:00:00 AM EST DANNA ([facility]) [id number] Renal function tests abnormal Renal Function Tests Abn ormal Problem 07/28/2015 12:00:00 AM EDT - 06/17/2020 12:00:00 AM EST DANNA ([facility]) [id number] Renal function tests abnormal Renal Function Tests Abn ormal Problem 07/28/2015 12:00:00 AM EDT - 06/17/2020 12:00:00 AM EST DANNA ([facility]) [id number] Renal function tests abnormal Renal Function Tests Abn ormal Problem 07/28/2015 12:00:00 AM EDT - 06/17/2020 12:00:00 AM EST DANNA ([facility]) [id number] Renal function tests abnormal Renal Function Tests Abn ormal Problem 07/28/2015 12:00:00 AM EDT - 06/17/2020 12:00:00 AM EST DANNA ([facility]) [id number] Procedure by method Procedure by Method Problem 0 06/23/2015 12:00:00 AM EST - 06/17/2020 12:00:00 AM EST DANNA ([facility]) [id number] Finding of general energy Finding of General Energy Pr oblem 06/23/2015 12:00:00 AM EST - 06/17/2020 12:00:00 AM EST DANNA ([facility]) [id number] Memory finding Memory Finding Problem 06/23/2015 12:00:00 AM EST - 06/17/2020 12:00:00 AM EST DANNA ([facility]) [id number] Headache Headache Problem 06/23/2015 12:0 0:00 AM EST - 06/17/2020 12:00:00 AM EST DANNA ([facility]) [id number] Syncope and collapse Syncope and Collapse Problem 06/23/2015 12:00:00 AM EST - 06/17/2020 12:00:00 AM EST DANNA ([facility]) [id number] Procedure by method Procedure by Method Problem 0 06/23/2015 12:00:00 AM EST - 06/17/2020 12:00:00 AM EST DANNA ([facility]) [id number] Finding of general energy Finding of General Energy Pr oblem 06/23/2015 12:00:00 AM EST - 06/17/2020 12:00:00 AM EST DANNA ([facility]) [id number] Memory finding Memory Finding Problem 06/23/2015 12:00:00 AM EST - 06/17/2020 12:00:00 AM EST DANNA ([facility]) [id number] Headache Headache Problem 06/23/2015 12:0 0:00 AM EST - 06/17/2020 12:00:00 AM EST DANNA ([facility]) [id number] Syncope and collapse Syncope and Collapse Problem 06/23/2015 12:00:00 AM EST - 06/17/2020 12:00:00 AM EST DANNA ([facility]) [id number] Procedure by method Procedure by Method Problem 0 06/23/2015 12:00:00 AM EST - 06/17/2020 12:00:00 AM EST DANNA ([facility]) [id number] Finding of general energy Finding of General Energy Pr oblem 06/23/2015 12:00:00 AM EST - 06/17/2020 12:00:00 AM EST DANNA ([facility]) [id number] Memory finding Memory Finding Problem 06/23/2015 12:00:00 AM EST - 06/17/2020 12:00:00 AM EST DANNA ([facility]) [id number] Headache Headache Problem 06/23/2015 12:0 0:00 AM EST - 06/17/2020 12:00:00 AM EST DANNA ([facility]) [id number] Syncope and collapse Syncope and Collapse Problem 06/23/2015 12:00:00 AM EST - 06/17/2020 12:00:00 AM EST DANNA ([facility]) [id number] Procedure by method Procedure by Method Problem 0 06/23/2015 12:00:00 AM EST - 06/17/2020 12:00:00 AM EST DANNA ([facility]) [id number] Finding of general energy Finding of General Energy Pr oblem 06/23/2015 12:00:00 AM EST - 06/17/2020 12:00:00 AM EST DANNA ([facility]) [id number] Memory finding Memory Finding Problem 06/23/2015 12:00:00 AM EST - 06/17/2020 12:00:00 AM EST DANNA ([facility]) [id number] Headache Headache Problem 06/23/2015 12:0 0:00 AM EST - 06/17/2020 12:00:00 AM EST DANNA ([facility]) [id number] Syncope and collapse Syncope and Collapse Problem 06/23/2015 12:00:00 AM EST - 06/17/2020 12:00:00 AM EST DANNA ([facility]) [id number] Procedure by method Procedure by Method Problem 0 06/23/2015 12:00:00 AM EST - 06/17/2020 12:00:00 AM EST DANNA ([facility]) [id number] Finding of general energy Finding of General Energy Pr oblem 06/23/2015 12:00:00 AM EST - 06/17/2020 12:00:00 AM EST DANNA ([facility]) [id number] Memory finding Memory Finding Problem 06/23/2015 12:00:00 AM EST - 06/17/2020 12:00:00 AM EST DANNA ([facility]) [id number] Headache Headache Problem 06/23/2015 12:0 0:00 AM EST - 06/17/2020 12:00:00 AM EST DANNA ([facility]) [id number] Syncope and collapse Syncope and Collapse Problem 06/23/2015 12:00:00 AM EST - 06/17/2020 12:00:00 AM EST DANNA ([facility]) [id number] Procedure by method Procedure by Method Problem 0 06/23/2015 12:00:00 AM EST - 06/17/2020 12:00:00 AM EST DANNA ([facility]) [id number] Finding of general energy Finding of General Energy Pr oblem 06/23/2015 12:00:00 AM EST - 06/17/2020 12:00:00 AM EST DANNA ([facility]) [id number] Memory finding Memory Finding Problem 06/23/2015 12:00:00 AM EST - 06/17/2020 12:00:00 AM EST DANNA ([facility]) [id number] Headache Headache Problem 06/23/2015 12:0 0:00 AM EST - 06/17/2020 12:00:00 AM EST DANNA ([facility]) [id number] Syncope and collapse Syncope and Collapse Problem 06/23/2015 12:00:00 AM EST - 06/17/2020 12:00:00 AM EST DANNA ([facility]) [id number] Procedure by method Procedure by Method Problem 0 06/23/2015 12:00:00 AM EST - 06/17/2020 12:00:00 AM EST DANNA ([facility]) [id number] Finding of general energy Finding of General Energy Pr oblem 06/23/2015 12:00:00 AM EST - 06/17/2020 12:00:00 AM EST DANNA ([facility]) [id number] Memory finding Memory Finding Problem 06/23/2015 12:00:00 AM EST - 06/17/2020 12:00:00 AM EST DANNA ([facility]) [id number] Headache Headache Problem 06/23/2015 12:0 0:00 AM EST - 06/17/2020 12:00:00 AM EST DANNA ([facility]) [id number] Syncope and collapse Syncope and Collapse Problem 06/23/2015 12:00:00 AM EST - 06/17/2020 12:00:00 AM EST DANNA ([facility]) [id number] Procedure by method Procedure by Method Problem 0 06/23/2015 12:00:00 AM EST - 06/17/2020 12:00:00 AM EST DANNA ([facility]) [id number] Finding of general energy Finding of General Energy Pr oblem 06/23/2015 12:00:00 AM EST - 06/17/2020 12:00:00 AM EST DANNA ([facility]) [id number] Memory finding Memory Finding Problem 06/23/2015 12:00:00 AM EST - 06/17/2020 12:00:00 AM EST DANNA ([facility]) [id number] Headache Headache Problem 06/23/2015 12:0 0:00 AM EST - 06/17/2020 12:00:00 AM EST DANNA ([facility]) [id number] Syncope and collapse Syncope and Collapse Problem 06/23/2015 12:00:00 AM EST - 06/17/2020 12:00:00 AM EST DANNA ([facility]) [id number] Procedure by method Procedure by Method Problem 0 06/23/2015 12:00:00 AM EST - 06/17/2020 12:00:00 AM EST DANNA ([facility]) [id number] Finding of general energy Finding of General Energy Pr oblem 06/23/2015 12:00:00 AM EST - 06/17/2020 12:00:00 AM EST DANNA ([facility]) [id number] Memory finding Memory Finding Problem 06/23/2015 12:00:00 AM EST - 06/17/2020 12:00:00 AM EST DANNA ([facility]) [id number] Headache Headache Problem 06/23/2015 12:0 0:00 AM EST - 06/17/2020 12:00:00 AM EST DANNA ([facility]) [id number] Syncope and collapse Syncope and Collapse Problem 06/23/2015 12:00:00 AM EST - 06/17/2020 12:00:00 AM EST DANNA ([facility]) [id number] Procedure by method Procedure by Method Problem 0 06/23/2015 12:00:00 AM EST - 06/17/2020 12:00:00 AM EST DANNA ([facility]) [id number] Finding of general energy Finding of General Energy Pr oblem 06/23/2015 12:00:00 AM EST - 06/17/2020 12:00:00 AM EST DANNA ([facility]) [id number] Memory finding Memory Finding Problem 06/23/2015 12:00:00 AM EST - 06/17/2020 12:00:00 AM EST DANNA ([facility]) [id number] Headache Headache Problem 06/23/2015 12:0 0:00 AM EST - 06/17/2020 12:00:00 AM EST DANNA ([facility]) [id number] Syncope and collapse Syncope and Collapse Problem 06/23/2015 12:00:00 AM EST - 06/17/2020 12:00:00 AM EST DANNA ([facility]) [id number] SNOMED CT Concept SNOMED CT Concept Problem 05/27 12:00:00 AM EST - 06/17/2020 12:00:00 AM EST DANNA ([facility]) [id number] SNOMED CT Concept SNOMED CT Concept Problem 05/27 12:00:00 AM EST - 06/17/2020 12:00:00 AM EST DANNA ([facility]) [id number] SNOMED CT Concept SNOMED CT Concept Problem 05/27 12:00:00 AM EST - 06/17/2020 12:00:00 AM EST DANNA ([facility]) [id number] SNOMED CT Concept SNOMED CT Concept Problem 05/27 12:00:00 AM EST - 06/17/2020 12:00:00 AM EST DANNA ([facility]) [id number] SNOMED CT Concept SNOMED CT Concept Problem 05/27 12:00:00 AM EST - 06/17/2020 12:00:00 AM EST DANNA ([facility]) [id number] SNOMED CT Concept SNOMED CT Concept Problem 05/27 12:00:00 AM EST - 06/17/2020 12:00:00 AM EST DANNA ([facility]) [id number] SNOMED CT Concept SNOMED CT Concept Problem 05/27 12:00:00 AM EST - 06/17/2020 12:00:00 AM EST DANNA ([facility]) [id number] SNOMED CT Concept SNOMED CT Concept Problem 05/27 12:00:00 AM EST - 06/17/2020 12:00:00 AM EST DANNA ([facility]) [id number] SNOMED CT Concept SNOMED CT Concept Problem 05/27 12:00:00 AM EST - 06/17/2020 12:00:00 AM EST DANNA ([facility]) [id number] SNOMED CT Concept SNOMED CT Concept Problem 05/27 12:00:00 AM EST - 06/17/2020 12:00:00 AM EST DANNA ([facility]) Surgeries/Procedures Procedure Description Date Indications Data Source(s) OFFICE OUTPATIENT VISIT 15 MINUTES 02/07/2021 12:00:00 AM EDT [facility] ([facility] ) OFFICE OUTPATIENT VISIT 10 MINUTES 02/02/2021 12:00:00 AM EDT [facility] ([facility] OFFICE OUTPATIENT VISIT 25 MINUTES 02/02/2021 12:00:00 AM EDT [facility] ([facility]) LIPID PANEL <td>LIPID PANEL</td><td>Rout ine</td><td>02/01/2021 2:44 PM EDT</td><td> Coronary artery disease due to lipid rich plaque Hyperlipidemia, unspecified hyperlipidemia type</td><td> </td> 02/01/2021 02:44:00 PM EDT Hyperlipidemia, unspecified hyperlipidem ia typeCoronary artery disease due to lipid rich plaque [facility] Hyperlipidemia, unspecified hyperlipidem ia type Coronary artery disease due to lipid katelin h plaque ARTHROCENTESIS ASPIR&/INJECTION MAJOR JT/BURSA 12:00:00 AM EDT MED[facility] ([facility] ) ARTHROCENTESIS ASPIR&/INJECTION MAJOR JT/BURSA 12:00:00 AM EDT MED[facility] ([facility] ) ARTHROCENTESIS ASPIR&/INJECTION SMALL JT/BURSA 12:00:00 AM EDT MED[facility] ([facility] ) OFFICE OUTPATIENT VISIT 25 MINUTES 01/11/2021 12:00:00 AM EDT [facility] ([facility] ) ARTHROCENTESIS ASPIR&/INJECTION MAJOR JT/BURSA 12:00:00 AM EDT MED[facility] ([facility] ) CHEMODNRVTJ MUSC MUSC INNERVATED FACIAL NRV 12/22/2020 12:00:00 AM EDT [facility] ([facility] ) RADEX SPINE CRV COMPL W/OBLQ&FLEX&/XTN STDS 12/22/2020 12:00:00 AM EDT [facility] ([facility] ) Needle Electromyography For Guidance 12/22/2020 12:00: 00 AM EDT [facility] ([facility] ) OFFICE OUTPATIENT NEW 45 MINUTES 12/22/2020 12:00:00 A M EDT [facility] ([facility] ) ARTHROCENTESIS ASPIR&/INJECTION MAJOR JT/BURSA 12:00:00 AM EDT [facility] ([facility] ) RADEX HAND MINIMUM 3 VIEWS 12/13/2020 12:00:00 AM EDT [facility] ([facility] ) OFFICE OUTPATIENT VISIT 15 MINUTES 12/13/2020 12:00:00 AM EDT MED[facility] ([facility] ) OFFICE OUTPATIENT VISIT 25 MINUTES 12/13/2020 12:00:00 AM EDT MED[facility] ([facility] ) OFFICE OUTPATIENT VISIT 15 MINUTES 11/30/2020 12:00:00 AM EDT [facility] OFFICE OUTPATIENT VISIT 25 MINUTES 11/29/2020 12:00:00 AM EDT [facility] ([facility] ) OFFICE OUTPATIENT VISIT 15 MINUTES 11/23/2020 12:00:00 AM EDT [facility] ([facility] OFFICE OUTPATIENT VISIT 25 MINUTES 11/15/2020 12:00:00 AM EDT [facility] ([facility] ) OFFICE OUTPATIENT VISIT 10 MINUTES 10/07/2020 12:00:00 AM EDT [facility] ([facility] PHYSICIAN TELEPHONE EVALUATION 11-20 MIN 08/26/2020 12 :00:00 AM EDT [facility] ([facility] ) POCT AMB EKG <td>POCT AMB EKG</td><td>Rou denton</td><td>07/13/2020 5:40 PM EDT</td><td> Coronary artery disease due to lipid rich plaque Ischemic cardiomyopathy</td><td> </td> 07/13/2020 09:40:00 PM EDT Ischemic cardiomyopathyCoronary artery disease due to lipid rich plaque [facility] Ischemic cardiomyopathy Coronary artery disease due to lipid katelin h plaque INJECTION SINGLE/ALUMINUM POLISHER TRIGGER POINT 3/> MUSCLES 021 12:00:00 AM EDT MED[facility] ([facility] ) GLUC BLD GLUC MNTR DEV CLEARED FDA SPEC HOME USE <td>P OCT GLUCOSE</td><td>Routine</td><td>07/08/2020 10:08 AM EST</td><td></td><td> </td> 07/08/2020 03:08:00 PM EST [facility] ECG ROUTINE ECG W/LEAST 12 LDS W/I&R <td>ECG 12- LEAD</td><td>Routine</td><td>07/08/2020 10:01 AM EST</td><td></td><td></td> 07/08/2020 03:01:[address] [facility] CARDIAC CATHETERIZATION <td>CARDIAC CATHETERIZATION</td><td>Routine</td><td>07/08/2020 9:26 AM EST</td><td> Coronary artery disease due to lipid rich plaque Ischemic cardiomyopathy Type 2 diabetes mellitus with chronic kidney disease, with long-term current use of insulin, unspecified CKD stage Chest pressure Vascular dementia without behavioral disturbance</td><td> </td> 07/08/2020 02:26:14 PM EST Vascular dementia without behavioral dis turbanceChest pressureType 2 diabetes mellitus with chronic kidney disease, with long-term current use of insulin, unspecified CKD stageIschemic cardiomyopathyCoronary artery disease due to lipid rich plaque [facility] Vascular dementia without behavioral dis turbance Chest pressure Type 2 diabetes mellitus with chronic ki dney disease, with long-term current use of insulin, unspecified CKD stage Ischemic cardiomyopathy Coronary artery disease due to lipid katelin h plaque ECG ROUTINE ECG W/LEAST 12 LDS TRCG ONLY W/O I&R <td>E CG 12- LEAD</td><td>Routine</td><td>07/08/2020 7:29 AM EST</td><td></td><td></td> 07/08/2020 12:29:[address] [facility] GLUC BLD GLUC MNTR DEV CLEARED FDA SPEC HOME USE <td>P OCT GLUCOSE</td><td>Routine</td><td>07/08/2020 7:16 AM EST</td><td></td><td> </td> 07/08/2020 12:16:00 PM EST [facility] ARTHROCENTESIS ASPIR&/INJECTION MAJOR JT/BURSA 021 12:00:00 AM EST [facility] ([facility]) DEXA, axial skeleton 06/27/2020 12:00:00 AM EST [facility] ([facility]) DEXA, axial skeleton 06/27/2020 12:00:00 AM EST [facility] ([facility]) DEXA, axial skeleton 06/27/2020 12:00:00 AM EST [facility] ([facility]) DEXA, axial skeleton 06/27/2020 12:00:00 AM EST DANNA ([facility]) DEXA, axial skeleton 06/27/2020 12:00:00 AM EST DANNA ([facility]) DEXA, axial skeleton 06/27/2020 12:00:00 AM EST [facility]ANNA ([facility]) DEXA, axial skeleton 06/27/2020 12:00:00 AM EST [facility]AN[facility] ([facility]) DEXA, axial skeleton 06/27/2020 12:00:00 AM EST [facility] ([facility]) DEXA, axial skeleton 06/27/2020 12:00:00 AM EST [facility]ANNA ([facility]) ARTHROCENTESIS ASPIR&/INJECTION MAJOR JT/BURSA 12:00:00 AM EST [facility] ([facility] ) Injection For Nerve Block, Greater Occipital Nerve 06/15/2020 12:00:00 AM EST [facility] ([facility] ) INJECTION ANES OTHER PERIPHERAL NERVE/BRANCH 12:00:00 AM EST [facility] ([facility] ) RADEX HAND MINIMUM 3 VIEWS 04/13/2020 12:00:00 AM EST [facility] ([facility] ) ARTHROCENTESIS ASPIR&/INJECTION MAJOR JT/BURSA 12:00:00 AM EST [facility] ([facility] ) Injection For Nerve Block, Greater Occipital Nerve 03/16/2020 12:00:00 AM EST [facility] ([facility] ) INJECTION ANES OTHER PERIPHERAL NERVE/BRANCH 12:00:00 AM EST [facility] ([facility] ) ARTHROCENTESIS ASPIR&/INJECTION MAJOR JT/BURSA 020 12:00:00 AM EDT [facility] ([facility] ) CHEMODNRVTJ MUSC MUSC INNERVATED FACIAL NRV 02/12/2020 12:00:00 AM EDT [facility] ([facility] ) Results ID Date Data Source [id number] 02/07/2021 11:27:00 AM EDT [facility] ([facility] ) Name Value Range Interpretation Code Description Data Luli rce(s) Supporting Document(s) Bacteria identified in Ear by Aerobe culture Laboratory test res ult Normal (applies to non-numeric results) [facility] ([facility] dex, ) <content>FULL REPORT IN LAB NOTES (eCW a nd Medent).</content>
<content>NORMAL MITALI PRESENT</content>
<content></content>
<content>ORGANISM 1: SERRATIA MARCESCENS</content>
<content></content>
<content>QUANTITY OF GROWTH HEAVY</content>
<content></content>
<content></content>
<content>ORG ANISM 2: PSEUDOMONAS AERUGINOSA</content>
<content> </content>
<content>QUANTITY OF GROWTH HEAVY</content>
<content></content>
<content></content>
<content>ORG ANISM 1: SERRATIA MARCESCENS</content>
<content>ORGANISM 2: PSEUDOMONAS AERUGINOSA</content>
<content></content>
<content>SERRATIA MARCESCENS: REACTION</content>
<content> TRIMETHOPRIM/SULFAMETHOXAZOLE IV 160mg TMP & 800mg SMXq6h <=20 S</content>
<content>TRIMETHOPRIM/SULFAMETHOXAZOLE PO Bactrim DS Bid <=20 S</content>
<content>GENTAMICIN IV 80mg q8h <=1 S</content>
<content>CEFAZOLIN IV 1gm q8h >=64 R</content>
<content>LEVOFLOXACIN IV 500mg qd <=0.12 S</content>
<content>LEVOFLOXACIN PO 250mg qd <=0.12 S</content>
<content>LEVOFLOXACIN PO 500mg qd <=0.12 S</content>
<content>TOBRAMYCIN IV 80mg q8h <=1 S</content>
<content>CEFTRIAXONE IV 1gm q24h <=1 S</content>
<content>CEFTAZIDIME IV 1gm q8h <=1 S</content>
<content> AZTREONAM IV 1gm q8h <=1 S</content>
<content>ERTAPENEM IV 1gm qd <=0.5 S</content>
<content>MEROPENEM IV 1 gm q8h <=0.25 S</content>
<content>MEROPENEM IV 500 mg q8h <=0.25 S</content>
<content>TIGECYCLINE IV 50mg q12h 2 S</content>
<content>CEFEPIME IV 1 gm q12h <=1 S</content>
<content> CEFEPIME IV 2 gm q12h <=1 S</content>
<content></content>
<content>PSEUDOMONAS AERUGINOSA: REACTION</content>
<content>GENTAMICIN IV 80mg q8h <=1 S</content>
<content>LEVOFLOXACIN IV 500mg qd 0.5 S</content>
<content> LEVOFLOXACIN PO 250mg qd 0.5 S</content>
<content>LEVOFLOXACIN PO 500mg qd 0.5 S</content>
<content>TOBRAMYCIN IV 80mg q8h <=1 S</content>
<content>CEFTAZIDIME IV 1gm q8h 4 S</content>
<content>PIPERACILLIN/TAZOBACTAM IV 2.25 gm q6h 8 S</content>
<content>MEROPENEM IV 1 gm q8h 1 S</content>
<content>MEROPENEM IV 500 mg q8h 1 S</content>
<content>CEFEPIME IV 1 gm q12h 2 S</content>
<content>CEFEPIME IV 2 gm q12h 2 S</content>
<content></content> ID Date Data Source [id number] 12/01/2020 03:22:00 PM EDT [facility] Name Value Range Interpretation Code Description Data Luli rce(s) Supporting Document(s) sars-cov-2 negative negative Sars-cov-2 [facility] ([facility]) ID Date Data Source [id number] 12/01/2020 03:22:00 PM EDT [facility] ([facility]) Name Value Range Interpretation Code Description Data Luli rce(s) Supporting Document(s) sars-cov-2 negative negative Sars-cov-2 [facility] ([facility]) ID Date Data Source [id number] 12/01/2020 03:22:00 PM EDT [facility] ([facility]) Name Value Range Interpretation Code Description Data Luli rce(s) Supporting Document(s) sars-cov-2 negative negative Sars-cov-2 [facility] ([facility]) ID Date Data Source [id number] 12/01/2020 03:22:00 PM EDT [facility] ([facility]) Name Value Range Interpretation Code Description Data Luli rce(s) Supporting Document(s) sars-cov-2 negative negative Sars-cov-2 [facility] ([facility]) ID Date Data Source [id number] 12/01/2020 03:14:00 PM EDT [facility] Name Value Range Interpretation Code Description Data Luli rce(s) Supporting Document(s) SARS coronavirus 2 RdRp gene [Presence] in Respiratory specimen by JUAN with probe detection Not detected [facility] This lab was ordered by [facility] and reported by [facility]. ID Date Data Source [id number] 10/13/2020 12:00:00 AM EDT [facility] ([facility]) Name Value Range Interpretation Code Description Data Luli rce(s) Supporting Document(s) Glucose [Mass/volume] in Serum or Plasma 225 mg/dL 65-99 Above high normal Glucose [facility] ([facility]) Creatinine [Mass/volume] in Serum or Plasma 1.39 mg/dL 0.50 -1.05 Above high normal Creatinine [facility] ([facility]) Urea nitrogen [Mass/volume] in Serum or Plasma 26 mg/dL 7-25 Above high normal Urea Nitrogen (BUN) [facility] ([facility]) Glomerular filtration rate/1.73 sq M.pre dicted among blacks [Volume Rate/Area] in Serum, Plasma or Blood by Creatinine-based formula (CKD-EPI) 48 mL/min/1.73m2 > or = 60 Below low normal eGFR [facility] ([facility]) Glomerular filtration rate/1.73 sq M.pre dicted among non-blacks [Volume Rate/Area] in Serum, Plasma or Blood by Creatinine-based formula (CKD-EPI) 42 mL/min/1.73m2 > or = 60 Below low normal eGFR Non-afr. Ivorian DANNA ( [facility]) Sodium [Moles/volume] in Serum or Plasma 141 mmol/L 135-146 Sodium [facility] ([facility]) Urea nitrogen/Creatinine [Mass Ratio] in Serum or Plasma 19 (calc) 6-22 BUN/creatinine Ratio DANNA ([facility]) Carbon dioxide, total [Moles/volume] in Serum or Plasma 30 mmol/L 20-32 Carbon Dioxide DANNA ([facility]) Potassium [Moles/volume] in Serum or Plasma 5.2 mmol/L 3.5-5.3 Potassium [facility] ([facility]) Chloride [Moles/volume] in Serum or Plasma 104 mmol/L 98-110 Chloride DANNA ([facility]) Calcium [Mass/volume] in Serum or Plasma 9.0 mg/dL 8.6-10.4 Calcium DANNA ([facility]) Albumin [Mass/volume] in Serum or Plasma 3.9 g/dL 3.6-5.1 Albumin DANNA ([facility]) Phosphate [Mass/volume] in Serum or Plasma 4.0 mg/dL 2.5-4.5 [facility] ([facility]) [facility] Date Data Source [id number] 10/13/2020 12:00:00 AM EDT [facility] ([facility]) Name Value Range Interpretation Code Description Data Luli rce(s) Supporting Document(s) Creatinine [Mass/volume] in Urine 48 mg/dL 20-275 Cr eatinine, Random Urine DANNA ([facility]) Microalbumin [Mass/volume] in Urine 4.6 mg/dL see note: Albumin, Urine DANNA ([facility]) Albumin/Creatinine [Mass Ratio] in Urine 96 mcg/mg_creat <30 Above high normal Albumin/creatinine Ratio, Random Urine [facility] ([facility]) ID Date Data Source [id number] 10/13/2020 12:00:00 AM EDT [facility]) Name Value Range Interpretation Code Description Data Luli rce(s) Supporting Document(s) Cholesterol in HDL [Mass/volume] in Serum or Plasma 37 mg/dL > or = 50 Below low normal HDL Cholesterol D[facility]NA ([facility]) Cholesterol [Mass/volume] in Serum or Plasma 179 mg/dL <200 Cholesterol, [facility] Cholesterol in LDL [Mass/volume] in Serum or Plasma by calculation 91 mg/dL_(calc) LDL-cholesterol DANNA ([facility]) Triglyceride [Mass/volume] in Serum or Plasma 380 mg/dL <150 Above high normal Triglycerides DANNA ([facility]) Cholesterol non HDL [Mass/volume] in Serum or Plasma 142 mg/dL_( calc) <130 Above high normal Non HDL Cholesterol D[facility] ([facility]) Cholesterol.total/Cholesterol in HDL [Mass Ratio] in Serum o r Plasma 4.8 (calc) <5.0 Chol/hdlc Ratio [facility] ([facility]) ID Date Data Source [id number] 10/13/2020 12:00:00 AM EDT [facility]) Name Value Range Interpretation Code Description Data Luli rce(s) Supporting Document(s) Hemoglobin A1c/Hemoglobin.total in Blood 9.9 %_of_total_HGB <5.7 Above high normal Hemoglobin a1C D[facility]NA ([facility]) ID Date Data Source [id number] 10/13/2020 12:00:00 AM EDT DANNA ([facility]) Name Value Range Interpretation Code Description Data Luli rce(s) Supporting Document(s) Nuclear Ab [Presence] in Serum negative negative anach oice(R) Screen DANNA ([facility]) ID Date Data Source [id number] 10/13/2020 12:00:00 AM EDT DANNA ([facility]) Name Value Range Interpretation Code Description Data Luli rce(s) Supporting Document(s) Erythrocytes [#/volume] in Blood by Automated count 3.92 million/uL 3.80-5.10 Red Blood Cell Count DANNA ([facility]) Leukocytes [#/volume] in Blood by Automated count 10.1 thousand/uL 3.8-10.8 White Blood Cell Count DANNA ([facility]) Hemoglobin [Mass/volume] in Blood 11.3 g/dL 11.7-15.5 Below l ow normal Hemoglobin DANNA ([facility]) Hematocrit [Volume Fraction] of Blood by Automated count 35.0 % 35.0-45.0 Hematocrit D[facility] ([facility]) Erythrocyte distribution width [Ratio] by Automated count 14.0 % 11.0-15.0 Rdw DANNA ([facility]) Erythrocyte mean corpuscular volume [Entitic volume] by Auto mated count 89.3 fL 80.0-100.0 Mcv DANNA ([facility]) Erythrocyte mean corpuscular hemoglobin [Entitic mass] by Automated count 28.8 pg 27.0-33.0 Mch DANNA ([facility]) Erythrocyte mean corpuscular hemoglobin concentration [Mass/volume] by Automated count 32.3 g/dL 32.0-36.0 Mchc DANNA ([facility]) Platelets [#/volume] in Blood by Automated count 348 thousand/uL 14 0-400 Platelet Count DANNA ([facility]) Eosinophils [#/volume] in Blood by Automated count 232 cells/uL 15- 500 Absolute Eosinophils DANNA ([facility]) Lymphocytes [#/volume] in Blood by Automated count 2929 cells/uL 85 0-3900 Absolute Lymphocytes DANNA ([facility]) Monocytes [#/volume] in Blood by Automated count 465 cells/uL 200-9 50 Absolute Monocytes DANNA ([facility]) Platelet mean volume [Entitic volume] in Blood by Radames-Dia 10.8 f L 7.5-12.5 Mpv DANNA ([facility]) Neutrophils [#/volume] in Blood by Automated count 6403 cells/uL 15 00-7800 Absolute Neutrophils DANNA ([facility]) Eosinophils/100 leukocytes in Blood by Automated count 2.3 % 0-8 Eosinophils DANNA ([facility]) Monocytes/100 leukocytes in Blood by Automated count 4.6 % 0-13 Monocytes [facility] ([facility]) Basophils [#/volume] in Blood by Automated count 71 cells/uL 0-200 Absolute Basophils [facility] ([facility]) Lymphocytes/100 leukocytes in Blood by Automated count 29.0 % 15-49 Lymphocytes DANNA ([facility]) Neutrophils/100 leukocytes in Blood by Automated count 63.4 % 38-80 Neutrophils DANNA ([facility]) Basophils/100 leukocytes in Blood by Automated count 0.7 % 0-2 Basophils [facility] ([facility]) ID Date Data Source [id number] 10/13/2020 12:00:00 AM EDT [facility]) Name Value Range Interpretation Code Description Data Luli rce(s) Supporting Document(s) Borrelia burgdorferi IgG+IgM Ab [Presence] in Serum by Immun oassay <=0.90 <=0.90 Lyme Ab, Screen [facility] ([facility]) ID Date Data Source [id number] 10/13/2020 12:00:00 AM EDT [facility]) Name Value Range Interpretation Code Description Data Luli rce(s) Supporting Document(s) Glucose [Mass/volume] in Serum or Plasma 225 mg/dL 65-99 Above high normal [facility] Creatinine [Mass/volume] in Serum or Plasma 1.39 mg/dL 0.50 -1.05 Above high normal Creatinine DANNA ([facility]) Glomerular filtration rate/1.73 sq M.pre dicted among non-blacks [Volume Rate/Area] in Serum, Plasma or Blood by Creatinine-based formula (CKD-EPI) 42 mL/min/1.73m2 > or = 60 Below low normal eGFR Non-afr. Ivorian DANNA ( [facility]) Urea nitrogen [Mass/volume] in Serum or Plasma 26 mg/dL 7-25 Above high normal Urea Nitrogen (BUN) D[facility]NA ([facility]) Glomerular filtration rate/1.73 sq M.pre dicted among blacks [Volume Rate/Area] in Serum, Plasma or Blood by Creatinine-based formula (CKD-EPI) 48 mL/min/1.73m2 > or = 60 Below low normal eGFR DANNA ([facility]) Urea nitrogen/Creatinine [Mass Ratio] in Serum or Plasma 19 (calc) 6-22 BUN/creatinine Ratio DANNA ([facility]) Potassium [Moles/volume] in Serum or Plasma 5.2 mmol/L 3.5-5.3 Potassium DANNA ([facility]) Sodium [Moles/volume] in Serum or Plasma 141 mmol/L 135-146 Sodium DANNA ([facility]) Chloride [Moles/volume] in Serum or Plasma 104 mmol/L 98-110 Chloride DANNA ([facility]) Carbon dioxide, total [Moles/volume] in Serum or Plasma 30 mmol/L 20-32 Carbon Dioxide DANNA ([facility]) Calcium [Mass/volume] in Serum or Plasma 9.0 mg/dL 8.6-10.4 [facility]cium [facility] Albumin [Mass/volume] in Serum or Plasma 3.9 g/dL 3.6-5.1 Albumin DANNA ([facility]) Phosphate [Mass/volume] in Serum or Plasma 4.0 mg/dL 2.5-4.5 Phosphate (as Phosphorus) [facility]) ID Date Data Source [id number] 10/13/2020 12:00:00 AM EDT DANNA ([facility]) Name Value Range Interpretation Code Description Data Luli rce(s) Supporting Document(s) Albumin/Creatinine [Mass Ratio] in Urine 96 mcg/mg_creat <30 Above high normal Albumin/creatinine Ratio, Random Urine DANNA ([facility]) Creatinine [Mass/volume] in Urine 48 mg/dL 20-275 Cr eatinine, Random Urine DANNA ([facility]) Microalbumin [Mass/volume] in Urine 4.6 mg/dL see note: Albumin, Urine D[facility]NA ([facility]) ID Date Data Source [id number] 10/13/2020 12:00:00 AM EDT DANNA ([facility]) Name Value Range Interpretation Code Description Data Luli rce(s) Supporting Document(s) Cholesterol [Mass/volume] in Serum or Plasma 179 mg/dL <200 Cholesterol, Total DANNA ([facility]) Triglyceride [Mass/volume] in Serum or Plasma 380 mg/dL <150 Above high normal Triglycerides DANNA ([facility]) Cholesterol in HDL [Mass/volume] in Serum or Plasma 37 mg/dL > or = 50 Below low normal HDL Cholesterol D[facility]NA ([facility]) Cholesterol.total/Cholesterol in HDL [Mass Ratio] in Serum o r Plasma 4.8 (calc) <5.0 Chol/hdlc Ratio D[facility]NA ([facility]) Cholesterol in LDL [Mass/volume] in Serum or Plasma by calculation 91 mg/dL_(calc) LDL-cholesterol DANNA ([facility]) Cholesterol non HDL [Mass/volume] in Serum or Plasma 142 mg/dL_( calc) <130 Above high normal Non HDL Cholesterol [facility] ([facility]) ID Date Data Source [id number] 10/13/2020 12:00:00 AM EDT [facility] ([facility]) Name Value Range Interpretation Code Description Data Luli rce(s) Supporting Document(s) Hemoglobin A1c/Hemoglobin.total in Blood 9.9 %_of_total_HGB <5.7 Above high normal Hemoglobin a1C [facility] ([facility]) ID Date Data Source [id number] 10/13/2020 12:00:00 AM EDT DANNA ([facility]) Name Value Range Interpretation Code Description Data Luli rce(s) Supporting Document(s) Nuclear Ab [Presence] in Serum negative negative anach oice(R) Screen DANNA ([facility]) ID Date Data Source [id number] 10/13/2020 12:00:00 AM EDT DANNA ([facility]) Name Value Range Interpretation Code Description Data Luli rce(s) Supporting Document(s) Hemoglobin [Mass/volume] in Blood 11.3 g/dL 11.7-15.5 Below l ow normal Hemoglobin DANNA ([facility]) Leukocytes [#/volume] in Blood by Automated count 10.1 thousand/uL 3.8-10.8 White Blood Cell Count D[facility]NA ([facility]) Erythrocytes [#/volume] in Blood by Automated count 3.92 million/uL 3.80-5.10 Red Blood Cell Count D[facility]NA ([facility]) Hematocrit [Volume Fraction] of Blood by Automated count 35.0 % 35.0-45.0 Hematocrit D[facility]NA ([facility]) Erythrocyte mean corpuscular hemoglobin concentration [Mass/volume] by Automated count 32.3 g/dL 32.0-36.0 Mchc DANNA ([facility]) Erythrocyte mean corpuscular volume [Entitic volume] by Auto mated count 89.3 fL 80.0-100.0 Mcv DANNA ([facility]) Erythrocyte mean corpuscular hemoglobin [Entitic mass] by Automated count 28.8 pg 27.0-33.0 Mch DANNA ([facility]) Lymphocytes [#/volume] in Blood by Automated count 2929 cells/uL 85 0-3900 Absolute Lymphocytes DANNA ([facility]) Platelet mean volume [Entitic volume] in Blood by Armani 10.8 f L 7.5-12.5 Mpv DANNA ([facility]) Neutrophils [#/volume] in Blood by Automated count 6403 cells/uL 15 00-7800 Absolute Neutrophils DANNA ([facility]) Platelets [#/volume] in Blood by Automated count 348 thousand/uL 14 0-400 Platelet Count INDIALANTIC ([facility]) Erythrocyte distribution width [Ratio] by Automated count 14.0 % 11.0-15.0 Rdw DANNA ([facility]) Lymphocytes/100 leukocytes in Blood by Automated count 29.0 % 15-49 Lymphocytes DANNA ([facility]) Neutrophils/100 leukocytes in Blood by Automated count 63.4 % 38-80 Neutrophils DANNA ([facility]) Monocytes [#/volume] in Blood by Automated count 465 cells/uL 200-9 50 Absolute Monocytes DANNA ([facility]) Eosinophils [#/volume] in Blood by Automated count 232 cells/uL 15- 500 Absolute Eosinophils DANNA ([facility]) Basophils [#/volume] in Blood by Automated count 71 cells/uL 0-200 Absolute Basophils DANNA ([facility]) Eosinophils/100 leukocytes in Blood by Automated count 2.3 % 0-8 Eosinophils DANNA ([facility]) Basophils/100 leukocytes in Blood by Automated count 0.7 % 0-2 Basophils DANNA ([facility]) Monocytes/100 leukocytes in Blood by Automated count 4.6 % 0-13 Monocytes INDIALANTIC ([facility]) ID Date Data Source [id number] 10/13/2020 12:00:00 AM EDT [facility]) Name Value Range Interpretation Code Description Data Luli rce(s) Supporting Document(s) Borrelia burgdorferi IgG+IgM Ab [Presence] in Serum by Immun oassay <=0.90 <=0.90 Lyme Ab, Screen IN[facility]ALANTIC ([facility]) ID Date Data Source [id number] 10/13/2020 12:00:00 AM EDT [facility]) Name Value Range Interpretation Code Description Data Luli rce(s) Supporting Document(s) Glucose [Mass/volume] in Serum or Plasma 225 mg/dL 65-99 Above high normal Glucose DANNA ([facility]) Urea nitrogen [Mass/volume] in Serum or Plasma 26 mg/dL 7-25 Above high normal Urea Nitrogen (BUN) DANNA ([facility]) Urea nitrogen/Creatinine [Mass Ratio] in Serum or Plasma 19 (calc) 6-22 BUN/creatinine Ratio INDIALANTIC ([facility]) Glomerular filtration rate/1.73 sq M.pre dicted among blacks [Volume Rate/Area] in Serum, Plasma or Blood by Creatinine-based formula (CKD-EPI) 48 mL/min/1.73m2 > or = 60 Below low normal eGFR DANNA ([facility]) Creatinine [Mass/volume] in Serum or Plasma 1.39 mg/dL 0.50 -1.05 Above high normal Creatinine DANNA ([facility]) Glomerular filtration rate/1.73 sq M.pre dicted among non-blacks [Volume Rate/Area] in Serum, Plasma or Blood by Creatinine-based formula (CKD-EPI) 42 mL/min/1.73m2 > or = 60 Below low normal eGFR Non-afr. Ivorian DANNA ( [facility]) Carbon dioxide, total [Moles/volume] in Serum or Plasma 30 mmol/L 20-32 Carbon Dioxide INDIALANTIC ([facility]) Sodium [Moles/volume] in Serum or Plasma 141 mmol/L 135-146 [facility] Potassium [Moles/volume] in Serum or Plasma 5.2 mmol/L 3.5-5.3 Potassium DANNA ([facility]) Chloride [Moles/volume] in Serum or Plasma 104 mmol/L 98-110 Chloride DANNA ([facility]) Phosphate [Mass/volume] in Serum or Plasma 4.0 mg/dL 2.5-4.5 Phosphate ([facility] Phosphorus) [facility] Calcium [Mass/volume] in Serum or Plasma 9.0 mg/dL 8.6-10.4 Calcium [facility]) Albumin [Mass/volume] in Serum or Plasma 3.9 g/dL 3.6-5.1 Albumin [facility]) ID Date Data Source [id number] 10/13/2020 12:00:00 AM EDT DANNA ([facility]) Name Value Range Interpretation Code Description Data Luli rce(s) Supporting Document(s) Microalbumin [Mass/volume] in Urine 4.6 mg/dL see note: Albumin, Urine DANNA ([facility]) Creatinine [Mass/volume] in Urine 48 mg/dL 20-275 Cr eatinine, Random Urine DANNA ([facility]) Albumin/Creatinine [Mass Ratio] in Urine 96 mcg/mg_creat <30 Above high normal Albumin/creatinine Ratio, Random Urine DANNA ([facility]) ID Date Data Source [id number] 10/13/2020 12:00:00 AM EDT INDIALANTIC ([facility]) Name Value Range Interpretation Code Description Data Luli rce(s) Supporting Document(s) Cholesterol in HDL [Mass/volume] in Serum or Plasma 37 mg/dL > or = 50 Below low normal HDL Cholesterol DANNA ([facility]) Cholesterol [Mass/volume] in Serum or Plasma 179 mg/dL <200 Cholesterol, Total DANNA ([facility]) Triglyceride [Mass/volume] in Serum or Plasma 380 mg/dL <150 Above high normal Triglycerides DANNA ([facility]) Cholesterol in LDL [Mass/volume] in Serum or Plasma by calculation 91 mg/dL_(calc) LDL-cholesterol DANNA ([facility]) Cholesterol.total/Cholesterol in HDL [Mass Ratio] in Serum o r Plasma 4.8 (calc) <5.0 Chol/hdlc Ratio DANNA ([facility]) Cholesterol non HDL [Mass/volume] in Serum or Plasma 142 mg/dL_( calc) <130 Above high normal Non HDL Cholesterol DANNA ([facility]) ID Date Data Source [id number] 10/13/2020 12:00:00 AM [facility] Name Value Range Interpretation Code Description Data Luli rce(s) Supporting Document(s) Hemoglobin A1c/Hemoglobin.total in Blood 9.9 %_of_total_HGB <5.7 Above high normal Hemoglobin a1C DANNA ([facility]) ID Date Data Source [id number] 10/13/2020 12:00:00 AM EDT DANNA ([facility]) Name Value Range Interpretation Code Description Data Luli rce(s) Supporting Document(s) Nuclear Ab [Presence] in Serum negative negative anach oice(R) Screen DANNA ([facility]) ID Date Data Source [id number] 10/13/2020 12:00:00 AM EDT INDIALANTIC ([facility]) Name Value Range Interpretation Code Description Data Luli rce(s) Supporting Document(s) Leukocytes [#/volume] in Blood by Automated count 10.1 thousand/uL 3.8-10.8 White Blood Cell Count INDIALANTIC ([facility]) Erythrocytes [#/volume] in Blood by Automated count 3.92 million/uL 3.80-5.10 Red Blood Cell Count [facility]DIAL[facility]IC ([facility]) Hemoglobin [Mass/volume] in Blood 11.3 g/dL 11.7-15.5 Below l ow normal Hemoglobin DANNA ([facility]) Erythrocyte mean corpuscular volume [Entitic volume] by Auto mated count 89.3 fL 80.0-100.0 Mcv DANNA ([facility]) Hematocrit [Volume Fraction] of Blood by Automated count 35.0 % 35.0-45.0 Hematocrit DANNA ([facility]) Platelets [#/volume] in Blood by Automated count 348 thousand/uL 14 0-400 Platelet Count INDIALANTIC ([facility]) Erythrocyte mean corpuscular hemoglobin [Entitic mass] by Automated count 28.8 pg 27.0-33.0 Mch DANNA ([facility]) Erythrocyte distribution width [Ratio] by Automated count 14.0 % 11.0-15.0 Rdw DANNA ([facility]) Erythrocyte mean corpuscular hemoglobin concentration [Mass/volume] by Automated count 32.3 g/dL 32.0-36.0 Mchc DANNA ([facility]) Platelet mean volume [Entitic volume] in Blood by Armani 10.8 f L 7.5-12.5 Mpv INDIALANTIC ([facility]) Neutrophils [#/volume] in Blood by Automated count 6403 cells/uL 15 00-7800 Absolute Neutrophils INDIALANTIC ([facility]) Lymphocytes [#/volume] in Blood by Automated count 2929 cells/uL 85 0-3900 Absolute Lymphocytes [facility]DIAL[facility] ([facility]) Eosinophils [#/volume] in Blood by Automated count 232 cells/uL 15- 500 Absolute Eosinophils [facility]AL[facility] ([facility]) Monocytes [#/volume] in Blood by Automated count 465 cells/uL 200-9 50 Absolute Monocytes [facility]AL[facility] ([facility]) Monocytes/100 leukocytes in Blood by Automated count 4.6 % 0-13 Monocytes INDIALANT[facility] ([facility]) Basophils [#/volume] in Blood by Automated count 71 cells/uL 0-200 Absolute Basophils [facility]DIAL[facility] ([facility]) Neutrophils/100 leukocytes in Blood by Automated count 63.4 % 38-80 Neutrophils INDIALANTIC ([facility]) Lymphocytes/100 leukocytes in Blood by Automated count 29.0 % 15-49 Lymphocytes [facility]DIAL[facility] ([facility]) Eosinophils/100 leukocytes in Blood by Automated count 2.3 % 0-8 Eosinophils INDIALANTIC ([facility]) Basophils/100 leukocytes in Blood by Automated count 0.7 % 0-2 Basophils [facility]DIAL[facility] ([facility]) ID Date Data Source [id number] 10/13/2020 12:00:00 AM EDT INDIALANTIC ([facility]) Name Value Range Interpretation Code Description Data Luli rce(s) Supporting Document(s) Borrelia burgdorferi IgG+IgM Ab [Presence] in Serum by Immun oassay <=0.90 <=0.90 Lyme Ab, Screen [facility]IC ([facility]) ID Date Data Source [id number] 10/13/2020 12:00:00 AM EDT INDIALANTIC ([facility]) Name Value Range Interpretation Code Description Data Luli rce(s) Supporting Document(s) Glucose [Mass/volume] in Serum or Plasma 225 mg/dL 65-99 Above high normal Glucose DANNA ([facility]) Urea nitrogen [Mass/volume] in Serum or Plasma 26 mg/dL 7-25 Above high normal Urea Nitrogen (BUN) DANNA ([facility]) Glomerular filtration rate/1.73 sq M.pre dicted among non-blacks [Volume Rate/Area] in Serum, Plasma or Blood by Creatinine-based formula (CKD-EPI) 42 mL/min/1.73m2 > or = 60 Below low normal eGFR Non-afr. Ivorian DANNA ( [facility]) Creatinine [Mass/volume] in Serum or Plasma 1.39 mg/dL 0.50 -1.05 Above high normal Creatinine DANNA ([facility]) Glomerular filtration rate/1.73 sq M.pre dicted among blacks [Volume Rate/Area] in Serum, Plasma or Blood by Creatinine-based formula (CKD-EPI) 48 mL/min/1.73m2 > or = 60 Below low normal eGFR DANNA ([facility]) Sodium [Moles/volume] in Serum or Plasma 141 mmol/L 135-146 Sodium DANNA ([facility]) Potassium [Moles/volume] in Serum or Plasma 5.2 mmol/L 3.5-5.3 Potassium DANNA ([facility]) Urea nitrogen/Creatinine [Mass Ratio] in Serum or Plasma 19 (calc) 6-22 BUN/creatinine Ratio DANNA ([facility]) Chloride [Moles/volume] in Serum or Plasma 104 mmol/L 98-110 Chloride DANNA ([facility]) Calcium [Mass/volume] in Serum or Plasma 9.0 mg/dL 8.6-10.4 Calcium DANNA ([facility]) Phosphate [Mass/volume] in Serum or Plasma 4.0 mg/dL 2.5-4.5 Phosphate (as Phosphorus) DANNA ([facility]) Carbon dioxide, total [Moles/volume] in Serum or Plasma 30 mmol/L 20-32 Carbon Dioxide DANNA ([facility]) Albumin [Mass/volume] in Serum or Plasma 3.9 g/dL 3.6-5.1 Albumin DANNA ([facility]) ID Date Data Source [id number] 10/13/2020 12:00:00 AM EDT DANNA ([facility]) Name Value Range Interpretation Code Description Data Luli rce(s) Supporting Document(s) Microalbumin [Mass/volume] in Urine 4.6 mg/dL see note: Albumin, Urine DANNA ([facility]) Albumin/Creatinine [Mass Ratio] in Urine 96 mcg/mg_creat <30 Above high normal Albumin/creatinine Ratio, Random Urine DANNA ([facility]) Creatinine [Mass/volume] in Urine 48 mg/dL 20-275 Cr eatinine, Random Urine DANNA ([facility]) ID Date Data Source [id number] 10/13/2020 12:00:00 AM EDT DANNA ([facility]) Name Value Range Interpretation Code Description Data Luli rce(s) Supporting Document(s) Cholesterol [Mass/volume] in Serum or Plasma 179 mg/dL <200 Cholesterol, Total DANNA ([facility]) Cholesterol in HDL [Mass/volume] in Serum or Plasma 37 mg/dL > or = 50 Below low normal HDL Cholesterol DANNA ([facility]) Triglyceride [Mass/volume] in Serum or Plasma 380 mg/dL <150 Above high normal Triglycerides DANNA ([facility]) Cholesterol in LDL [Mass/volume] in Serum or Plasma by calculation 91 mg/dL_(calc) LDL-cholesterol DANNA ([facility]) Cholesterol.total/Cholesterol in HDL [Mass Ratio] in Serum o r Plasma 4.8 (calc) <5.0 Chol/hdlc Ratio DANNA ([facility]) Cholesterol non HDL [Mass/volume] in Serum or Plasma 142 mg/dL_( calc) <130 Above high normal Non HDL Cholesterol DANNA ([facility]) ID Date Data Source [id number] 10/13/2020 12:00:00 AM EDT INDIALANTIC ([facility]) Name Value Range Interpretation Code Description Data Luli rce(s) Supporting Document(s) Hemoglobin A1c/Hemoglobin.total in Blood 9.9 %_of_total_HGB <5.7 Above high normal Hemoglobin a1C DANNA ([facility]) ID Date Data Source [id number] 10/13/2020 12:00:00 AM EDT DANNA ([facility]) Name Value Range Interpretation Code Description Data Luli rce(s) Supporting Document(s) Nuclear Ab [Presence] in Serum negative negative anach oice(R) Screen DANNA ([facility]) ID Date Data Source [id number] 10/13/2020 12:00:00 AM EDT INDIALANTIC ([facility]) Name Value Range Interpretation Code Description Data Luli rce(s) Supporting Document(s) Leukocytes [#/volume] in Blood by Automated count 10.1 thousand/uL 3.8-10.8 White Blood Cell Count DANNA ([facility]) Erythrocytes [#/volume] in Blood by Automated count 3.92 million/uL 3.80-5.10 Red Blood Cell Count DANNA ([facility]) Erythrocyte mean corpuscular volume [Entitic volume] by Auto mated count 89.3 fL 80.0-100.0 Mcv DANNA ([facility]) Hemoglobin [Mass/volume] in Blood 11.3 g/dL 11.7-15.5 Below l ow normal Hemoglobin DANNA ([facility]) Hematocrit [Volume Fraction] of Blood by Automated count 35.0 % 35.0-45.0 Hematocrit DANNA ([facility]) Erythrocyte mean corpuscular hemoglobin [Entitic mass] by Automated count 28.8 pg 27.0-33.0 Mch DANNA ([facility]) Platelets [#/volume] in Blood by Automated count 348 thousand/uL 14 0-400 Platelet Count DANNA ([facility]) Erythrocyte distribution width [Ratio] by Automated count 14.0 % 11.0-15.0 Rdw DANNA ([facility]) Platelet mean volume [Entitic volume] in Blood by Armani 10.8 f L 7.5-12.5 Mpv INDIALANTIC ([facility]) Erythrocyte mean corpuscular hemoglobin concentration [Mass/volume] by Automated count 32.3 g/dL 32.0-36.0 Mchc DANNA ([facility]) Neutrophils [#/volume] in Blood by Automated count 6403 cells/uL 15 00-7800 Absolute Neutrophils DANNA ([facility]) Eosinophils [#/volume] in Blood by Automated count 232 cells/uL 15- 500 Absolute Eosinophils INDIALANTIC ([facility]) Lymphocytes [#/volume] in Blood by Automated count 2929 cells/uL 85 0-3900 Absolute Lymphocytes [facility]ALANT[facility] ([facility]) Neutrophils/100 leukocytes in Blood by Automated count 63.4 % 38-80 Neutrophils [facility]DIALANTIC ([facility]) Monocytes [#/volume] in Blood by Automated count 465 cells/uL 200-9 50 Absolute Monocytes [facility]DIALANT[facility] ([facility]) Basophils [#/volume] in Blood by Automated count 71 cells/uL 0-200 Absolute Basophils [facility]AL[facility] ([facility]) Monocytes/100 leukocytes in Blood by Automated count 4.6 % 0-13 Monocytes [facility]AL[facility] ([facility]) Lymphocytes/100 leukocytes in Blood by Automated count 29.0 % 15-49 Lymphocytes [facility]DIAL[facility] ([facility]) Basophils/100 leukocytes in Blood by Automated count 0.7 % 0-2 Basophils [facility]AL[facility] ([facility]) Eosinophils/100 leukocytes in Blood by Automated count 2.3 % 0-8 Eosinophils [facility]AL[facility] ([facility]) ID Date Data Source [id number] 10/13/2020 12:00:00 AM EDT INDIALANTIC ([facility]) Name Value Range Interpretation Code Description Data Luli rce(s) Supporting Document(s) Borrelia burgdorferi IgG+IgM Ab [Presence] in Serum by Immun oassay <=0.90 <=0.90 Lyme Ab, Screen [facility]AL[facility]IC ([facility]) ID Date Data Source [id number] 08/19/2020 08:40:[address] [facility] Name Value Range Interpretation Code Description Data Luli rce(s) Supporting Document(s) Progress Note [facility] HOEJGd0fOwULImOy18/GCEhmCRHsb4DnRKbuBRp5HXkdMJThG6EeFUL8oG4nSKB8OFkFItOmIbQtUOEo lbm [file] ICAgICAgICAgICAgICAgICAgICAgICAgICAgICAgICAgICAgICAgICAgICAgICAgICAgICAgICAgICAg WLDcYMEnKHWbATEmOZKmGEAsEZGcZKUjTTToOFFrAZBoRBCsNV9SGBHkCAIuOTJsCZWkFLQlAFXcSDPf ICAgICAgICAgICAgICAgICAgICAgICAgICAgICAgIC ZkFVRyEGHkEEQwRIScCTYrSWQkOUIiBOTyWCCtCKWdXNCwOMKpXVBeXSLfFJFyJS9AMAKwHQDtPWCeCN AgICAgICAgICAgICAgICAgICAgICAgICAgICAgICAgICAgICAgICAgICAgICAgICAgICAgICAgICAgIC PoVWBdCHDdNQDrHLElWLZpAZWyEHHvFSKxKQKgQT3R ICAgICAgICAgICAgICAgICAgICAgICAgICAgICAgICAgICAgICAgICAgICAgICAgICAgICAgICAgICAg GPPtNNPvSSXySZEfOKDpZTNhXRUjBRKaEGNsWWVrYTShGLGhLOObBK7PLIFpVFDpFFPkPBVyLVGaYAAb ICAgICAgICAgICAgICAgICAgICAgICAgICAgICAgIC RqZDEkPRQbCXQiVFYyCVIyXQJzFJRgTJGgNBPsWSHjNFNzDBVcDNGaNSCfLJFrXTClJG3WRETbQXUvIN AgICAgICAgICAgICAgICAgICAgICAgICAgICAgICAgICAgICAgICAgICAgICAgICAgICAgICAgICAgIC AgICAgICAgICAgICAgICAgICAgICAgICAgICAgICAg XP7KIAByMIRmSHRhFRPdKGSzDKSgZNUfFGEoUQXlRZIvICUqLRNvWHNkEMZwUCZdITSlXKDvTZFuUZOq EZGpQBGpCLNuTSFwOTTqXCPuIOLuJNXtJUFrWJOrMTPgAMXkWCEwYSVpVT3ILKHsFZQpZXGzGRMlLSGn ICAgICAgICAgICAgICAgICAgICAgICAgICAgICAgIC BvUMQeHSQiPLKjTCNeEFTtQSUrXRMhPEImHPTtEZNwLAJhCFItUMVlBIEdCLXvERKqQODcRA9WIGFmQX AgICAgICAgICAgICAgICAgICAgICAgICAgICAgICAgICAgICAgICAgICAgICAgICAgICAgICAgICAgIC AgICAgICAgICAgICAgICAgICAgICAgICAgICAgICAg DJWnML5YQLIyETHySZDuPAWqXQUxYOYqQEJhLFUxLIIxPCYsCSAmXTMjBQGnUNVqECFfZSUqAZQnGJYd VBJiECJkYZTxIAYmJJLqDTYuGBVfWNQcCTGfPHHtOMCkXFZlPERqUAUdFNFvST7EJN01dVUqu1O7DVBl LS4opcl/Wc6VUIebgqCqqSVhQG1ZUjBxXR4mba1BNo NdYE3yoa0ACKvDPoKdZ2B1hAIuWMPjJUGKWkMiR45lONybWk43SKngKOGtOrOhOJv4Zk1WEjOsJ5vyKG SjCdH2JHWlQyMuRRanOY3Ay2NleAJlYWz+Gt7OQL3rt1VbMNdkAKZsDX2itm2NILsXEvHnR7ImabE7PZ AsAVCiNk8PTGRyYHDvfUWhQEGaIDDCPdOvZ9UrqI82 IDENCj4+CEgldxNkUvuDMtRqCBZuk5MmETa7GK4TLQMlDBy4mDZwRUKaG5Ytj8ZlGk82GRWiYkntWdQq nRHyCLxdtYcydgEbBG1NHBF7MKIhGP2kJJRuAJC5JmEtBDKKBM6UIIQaZCAvbOEuGIRmEFVBGQ3EFEkf IIU3XEEoboYhqVJmNXejSQ7KWVFxnsNtFTsgEAXFXE o+Th0TWZ6ly2QvUGmxWEVcCP5wsg2LRRcPJcJaU1L8sPLaF7U0AZedVk3BFYNpNJTrUNytVBIJGIweVQ 3TEL7telG9NQ8EbKCxSONyRAGqsQExJLa7L31sdPXbYBpxWL7XEMD+Carter+Gk0FPDWqENWrENNvNbFbUR UCViPfE8QjW3WXx1BiH0ExNL75oEvvvxRsNRgrCV2P DQ4wCTGuECOBBK3XfKNcbM8kokWgKVXqPVCWYkSgQ15cdGPuXHBlAFO5GPHwLj0ZUXDaA2VmevYdvKoo neLmHHQsECHPLR3DVVgxnmUxdYNbiMkqIS69hMjfIN4YBy7OAeXbVV7roo3SwGSwRu1FPKCiRn8VRGUt VTLmITRoFAM8XQKkVeQvRAwoSEJrGFDjTGL0AYEfTL GfTS5MZpGdNYWbDCE7HSMhWBZfOWLccb0CEPLaCCWlWQXjUeDqNLMsMCHdHZzsYHFbOTKbENA9FXLhVD QeQN9AAuQcPUVgTDW0UGCsIPOdTVVfag1IAOXuSGToCQd9YNIxOIHqSTZaBXdxRUUrSMJgHAQ1ISJsIK QhWA6KLvSeGSAxHBTxZEZlIZIkLGLwfg8DGVApPCMq MgB0UPXhZROjWNLdYGifHWCyYNW0NcU7ZAMkSOIyNL9ESuFxUPToARG1PUQjABRfWLZvga5LRBGmTGUy CLRlYfUwXYCsKLPkDBtyVBFqQKW3FYpiTZVmZRNhLP7KWfRaQRVlKAKcYWfzITKzXBKunu8OYDHbLLNt YmXaEvHvLDZpHHCfVPzzQHYaYFI1WhP9GJQvIKWvZQ 4YRlIhEBTvTQN8LEBrGXMcOZTuta8UVAUqBVHrJgM1GkSvJAYmFGRlAWoeGHAlMIN3IhAdSKRmUKOrRV 9CWeTyRAYoAAn0LUXeXCDfYFWhqi4TJRBzJPUaBJf2YBOcNTYxRQIuDJe3knFkfXVbYBm5ZN8AE6Fefe CsJpSLUm1It627NQLgPUVfAd1VA9jvCy7xCUMsHGFY Sz2KYYx1SPM5DCHtReN0OAU4TEIbWWNqJgc4CXVeUJTxUzVdKxG+HLodXBF1KWFfLjg8YeCnWyG4PnDn RCBjPjKiCSMdNkNzBJ4uZLGOFo5+ONasyYNqmYywNHRNXmF9WXp9GHsmDLGHDs1M ID Date Data Source [id number] 08/19/2020 08:40:[address] [facility] Name Value Range Interpretation Code Description Data Luli rce(s) Supporting Document(s) Progress Note [facility] MNMWLd0uZhVNHhFw17/NDCfoBHWxt9BtQHbcQRx1JIfnTZAgX2YiLSZ9lY7uMEI4XKtGOuZmQpIuQEYi lbm [file] AgICAgICAgICAgICAgICAgICAgICAgICAgICAgICAgICAgICAgICAgICAgICAgICAgICAgICAgICAgIC AgICAgICAgICAgICAgICAgICAgICAgICAgICAgICAgICANCiAgICAgICAgICAgICAgICAgICAgICAgIC AgICAgICAgICAgICAgICAgICAgICAgICAgICAgICAg ICAgICAgICAgICAgICAgICAgICAgICAgICAgICAgICAgICAgICAgICAgICANCiAgICAgICAgICAgICAg ICAgICAgICAgICAgICAgICAgICAgICAgICAgICAgICAgICAgICAgICAgICAgICAgICAgICAgICAgICAg ICAgICAgICAgICAgICAgICAgICAgICAgICANCiAgIC AgICAgICAgICAgICAgICAgICAgICAgICAgICAgICAgICAgICAgICAgICAgICAgICAgICAgICAgICAgIC AgICAgICAgICAgICAgICAgICAgICAgICAgICAgICAgICAgICANCiAgICAgICAgICAgICAgICAgICAgIC AgICAgICAgICAgICAgICAgICAgICAgICAgICAgICAg ICAgICAgICAgICAgICAgICAgICAgICAgICAgICAgICAgICAgICAgICAgICAgICANCiAgICAgICAgICAg ICAgICAgICAgICAgICAgICAgICAgICAgICAgICAgICAgICAgICAgICAgICAgICAgICAgICAgICAgICAg ICAgICAgICAgICAgICAgICAgICAgICAgICAgICANCi AgICAgICAgICAgICAgICAgICAgICAgICAgICAgICAgICAgICAgICAgICAgICAgICAgICAgICAgICAgIC AgICAgICAgICAgICAgICAgICAgICAgICAgICAgICAgICAgICAgICANCiAgICAgICAgICAgICAgICAgIC AgICAgICAgICAgICAgICAgICAgICAgICAgICAgICAg ICAgICAgICAgICAgICAgICAgICAgICAgICAgICAgICAgICAgICAgICAgICAgICAgICANCiAgICAgICAg ICAgICAgICAgICAgICAgICAgICAgICAgICAgICAgICAgICAgICAgICAgICAgICAgICAgICAgICAgICAg ICAgICAgICAgICAgICAgICAgICAgICAgICAgICAgIC ANCiAgICAgICAgICAgICAgICAgICAgICAgICAgICAgICAgICAgICAgICAgICAgICAgICAgICAgICAgIC AgICAgICAgICAgICAgICAgICAgICAgICAgICAgICAgICAgICAgICAgICANCjw/hZYrS7rkoETzsyT8I9 vzSc1FVw6TAI2ss0ZiNINzUErsjiNpVabRSzSkIROh QvbIVhl5NCyeIL9YrAOeT3NdR6UoUIvwMD9GRPXoFLPzzOJvCLVfMTVvKrM0ANNxHLggKT0ZbCZlBRsw YNLuFFQsEkMiLFPeIHDqXLDwWGTqGJJOJRVtLKVgPaDeSAVhPNBbRPigERJZAYC0GPWzMhAyHUigUT1V t5RoxGH0RYw+Fh0CJI7aa4YlSNrsUkSsUJ9xoe2EFC kVKpLjA6DpcjY2CCE0HCYcVr0UIQKxVUPckLAdPeHjOHHJYrFjH2FpsK32OPCFQa9+DQplbmRvYmoNCj G7IWXjz2GxAGl5CV6IHLWfGIm7wVNtPMTpX6Idj5HrOl00JTNkZpvsNYWjcY0hIHYwIEirEX8UYzBHTR J3AAMsFA8iICCzEHH1KiFyDBZYGM0EPUPdGPSmwGXp OILcZXDMIZ0OZGplOSO6NOOutxWydJYyXDsxOU7VDFWupvLpTcZiWWYEIMe+Ad6YIG4ib3SgSXwaZUYq SS3jhj8JFUrJGgMqN1H7aGDyX2B1EKdkNq5PCOOcOMYwLmEcYWKDGLpyLU8PLR7zckX1AI2HxOAuFFAi JYWnqCDvFUh6M08gzOVeWPclCE8MOEW+Carter+Pg0KIC IeJEGtWBGwPcYcTMGQNmGlX4JnQ5WGc1LmJ2LhXR13dMcrsjKdRRadLY2XYQ1aDPViDNJMUH6GgNVzxF 1vlpDcHkGeDKGFBgCoS19miNNhGGBnQIB6DDBuMt4WFQNqP4OmyjEnxJodxvVjGINdAAJZWN5ZPIwqxm SkoVYdrMnyNC36oXtiKG9SPp6NPsKjNS2ixl8RkSIo Kx7IWGCyGJ5QWTLqPKEmTYWcBJE5PARgCgPuCNeqIXZsHXSlYOH7ZJNbIFMzRL5SWmJjMWDvSGI9HfYm EZHgBDBukn5HXGJoPSP8NjV9EvTtLUHbMAYsNMbhATMiCWGfJLC4PPEvAWFvEZ8HHqLyFMErIEK1Arhk ELToZLDued5QQOUtFMDkEpo0ZbJrOBBcCLRhYUgfHQ QkTLM4FnMtPFQrJCAvCF1SXnYiSFMnXHx8EzEcNSTiUAQhtg7FDEVmGUIfYKi3AgLrVOIgEVGnITtdLR JnQCWbDKNsMLKbSBXwIG9CRlJvWCAbOPD9ReAuCIHuHOJjsr5HYKPiJPFtGCanGTEkWTDeHALaHYgrXK CkXVR6NwW1SZFeDVOmPC2UGcCaTHWlIFd2ElWsCCOh ZFVubz2ZJWHjRIIhOOUrPHTpAJQiXGPoORfqNWSfIIYuVfD4GLEnIBZtTJ9UAmKbIBKoQgWyYxLkXCVt PJAcee8SIGGwQEMuDVDaWVPhOCIxWAWuVHztUOGnKIM6AmR8BGLoGYRbQX4PHjGqQXUmLqs3RTVjTYTt HZMfet9KMHXfWXBrHGLcOOTyJNGeCVRjQCdeSBZcUA X9Ppc3ERQkNCAdNI0SMdApQVXzQgg0SVObRXKyLMYpgt7CNETaSSMvTTq7KJKrRWLlGGStDMhnPZGgKG LyROUxSUFiIUDpUL2NZhKkIBPoDfXzLaZrUCAxUWXcir3QBBKnHSM6XhN0QOLgXNQoIDGpWRoaFWVvAW DnSAb5INZmIPXrQB4YSsLpWACpKXCeVSLiOEKaVEIm ew4BDGXnZUP2ZaI6PAOmIFTuNGGrEYpxGDXzDXLqDGbqNRFvBEDeRS6XQqWzRWXfDGU1MeFjKNHhAQIt ug5EUICtPEB4IOkgQfDuMSKcKYCjRMasZUYqIBP9NEAbADCjGYExKJ2IGyEaIGKfWVOsPOdyQWEdRWLm tq7NZRQsQBH4DtztSpEoGVKyWDWdBKhuCDAvEHO9CH ccCYJlWETqKY7GAqFfEFVaDYktFxTvZZFkUCRjgc5VxPHbuHrtmq1XYGsQMx3UjCbyLXT4TVkyFg6knT XzDMMjQOHDNw8LekBoYNGeEQZJDAusWICoMJOaTMXuCcKmHwP4LDy9EOm6T9NvWLcvFnOaO4KuGEGwNw Q6IvFpPaQyMUBdMPb3SJWhFklpUJD1PAJmRvD6PyX6 Y2Q+JD2mSWa+Cc4Lk1FtvbF6aoYbYOj5FgB2MZ6HJXUKV2OFFe== ID Date Data Source [id number] 08/19/2020 08:40:[address] [facility] Name Value Range Interpretation Code Description Data Luli rce(s) Supporting Document(s) Progress Note [facility] PNKCDh8zXwGFVyRb62/DLRnxDXYpp6DnQMgfHGb2HIlaWEWbA9MqCNK5bS4xARE3OMnKEfTpIqViIXDy lbm [file] ED1xOHd+Fv7Ic1FpxsY2fnLzQQsrWOBpOi9WNBOTJ0FLHh== ID Date Data Source [id number] 08/19/2020 08:40:[address] [facility] Name Value Range Interpretation Code Description Data Luli rce(s) Supporting Document(s) Progress Note [facility] BCNLDw5wGnFHDpUg40/RTPyvZXIen8DtBSckZDh7WTmdAGQeE1PxTED0hF5fSYJ2TMeVZmYbVtMiHPAl lbm [file] PCAvRjAgOCAwIFINCiAgICAvRjEgMTEgMCBSDQogIC YfC3QsTNM1LVQyFi1IMYLsLJ5BBlHzPXIjRPT+Qi8GNCFgWR8gmzBrnWW4RTQ+Bx7YHZRzNXw1T4C7TJ RjQWb6K0OYG9JUDSHmZStwEIegVNPuWLw2N5P5KQGzO3HAK6Lzbutpqc7+RP7MT39GWDIbDOp4J1Q2aP XsG1T2kTgViJC2FV4QUF6QtIj0aWAorQ6+UY8OZ0HT IlRpOBg1M2Q4sULcF0Z5fZhKvFO3ZM9VXY0WsEWfJBMtvcBvOj0rS3QZITsETcBMAMZ7RP2DtSFeQA9P bWSUA5WbeQXyTo0cOZasvHCrpB4tVx7yXBojQT2LPgCTHZcWBCN9HH4CbMJdUB8IqMBZT2TffXXlGf2g TGlnaHRlbj4+QY4GZSBlXp7RYx8+DQplbmRvYmoNCj UfLYOmz0YzGLw2AJ1KZP4dbCfuMTD6Cg1PtET5iFHuP3lJNA0IdITiS98tcALiKYYhRr2INyQ6ysSbbP 2YJW16oQGfu9I8UYShJ8beRJznv06hKSzaYVgQET2iSDYGEHyxDGerULK6OoVlrgnkEFObGo2YGiWnRW y3eH6qzKC0KTH2VrcseXJsZFwoEmPnBhKoCcJ3zYjn bnx6JFbyIB6hUEoyepxlESJvMns+UHebYLImURVtOxlZSJDmxD7ehqB3ziPuUPigdNUsVp0pt5g5Ovsu Ya0jNe1lXYc4MlCvMxEfTFDuIr1moO77RGgzriQxZt7KTuIzOQQ4J9JoAfzPIAG+KDqvTAqxxTr9oJUu VVFuXf7NIOGzGJWtSJTpNYEqDPRiCMYjXSJzGBYtNW AgICAgICAgICAgICAgICAgICAgICAgICAgICAgICAgICAgICAgICAgICAgICAgICAgICAgICAgICAgIC NnYSSlMVTkHFQbJXOeSK3UVTKiJVCmFAIzTPKrHWHxLVHgZQPyMROfKTGmDFMeAOBoIGOsNVUkASTtCU AgICAgICAgICAgICAgICAgICAgICAgICAgICAgICAg IUAgSMXgLLFyURNeUEXpDJUaCRYsALAqXU1RYGRaGNNyHPZpTGEvBURaOPAtASYuQSBuWBNyLZTzXORi ICAgICAgICAgICAgICAgICAgICAgICAgICAgICAgICAgICAgICAgICAgICAgICAgICAgICAgICAgICAg XVJiRISyPS9AZJGwRNVdRNJmTBCgUEPbXKPjYAKvCL AgICAgICAgICAgICAgICAgICAgICAgICAgICAgICAgICAgICAgICAgICAgICAgICAgICAgICAgICAgIC EoFHNyKQUtCHZpTKIlZZKmUX3UXUGsJHLbVMNjKQZsMPUtLVXhFZSsGATsUXMpWOTfSNWuUSAqGUYrWG AgICAgICAgICAgICAgICAgICAgICAgICAgICAgICAg RYLnVJQhQCJhEQLlHCEoTMDsHHWwGFMhSCBkXG6ORZUtZPEsHFZkSGFtLLWzYIDmKFQqOWTsSPIeZZTl ICAgICAgICAgICAgICAgICAgICAgICAgICAgICAgICAgICAgICAgICAgICAgICAgICAgICAgICAgICAg LCZrZNYwCJPtWK1BYPOlCOWcFBAlQCJgODDmTUWuSS AgICAgICAgICAgICAgICAgICAgICAgICAgICAgICAgICAgICAgICAgICAgICAgICAgICAgICAgICAgIC GkVZYfYBWfZMOtTJYdOCPmQMBwVC3RXRYgSCTlKHAvSVLiFWRoYUVrZBHbVYOvGGXyOPVqLBQqQWAwGO AgICAgICAgICAgICAgICAgICAgICAgICAgICAgICAg UJMpQOYfTLTrIOHgMREtVHFyGZYbELXjLRExSKNsME0GIUHaQKCnTFEnSSJaLOVhTLClJHAvNTTiPROt ICAgICAgICAgICAgICAgICAgICAgICAgICAgICAgICAgICAgICAgICAgICAgICAgICAgICAgICAgICAg MQCtMTQeIWExHOAiCW0BPVNqLMNmJCOfEGZtGHNhDW AgICAgICAgICAgICAgICAgICAgICAgICAgICAgICAgICAgICAgICAgICAgICAgICAgICAgICAgICAgIC WmTDJxYMCfDPLeHOYiESAdGJBmEVRzBP6BHO14jEArg4G5WSQaYK1zedw/Ls9YXPmsrqMgqARaYA0XAm YzDP5kxq4GUoIjOW7gdk5BULcTRgGjH2J4cOBbCUId UWFWMvMeH10bMZyxXv28AXegFHWiXjGjOXt3Fx9RKkCcT2hyYFAaJzI3LQHgIhGwULjmJS7Ke9JqmDXx DQo+Vr6FMH0cm1HmWAmkYzPxCK1yxz9ZMPcJTlQtZ4GeqiM3PNNcUPCtGm3KVKMoSTZzgRVjWnSqDTUQ ItEuV9HrxU66GJKFIy0+DQplbmRvYmoNCjIzIDAgb2 TzWTj5YQ7FBYXfRNt3oNJyJOVxP4Qlh4RlSf36RZHsGalxLuXdJZXtZNPNOBEcuOAxnL9knxbgAPMIIT M7NYYpIH7dVAAiRQD2WyXyRESXNC9OVYGpWDVgjGRvQYVtINVVJD7HFLnlEGX0LUSfhxZcuEOnJYrxBL 9QYXJlbnQgMjIgMCBSDQo+Pt1GWG1nn5YyPTapFSLa VG5qxv4SGXoOUwIeH6H9qJGhJ5H8UXebZe3ELYYiHAIkWhUfOMVOFDttOL5BHZ7gsfR5HF1ZjNNxJSLu CQLzfWEjMJg1E58sqVRqYYduVO6UUPM+Carter+Zn4FZODdEOQrQONdLuZuTPNOHnZqE4RjF0TNd8ScQ5Wz QX47uPvvbjFnMJttAQ0RSA4tAACvJXCWOE4UkDExmU 5vljDwOjWlQUIZGzOjT93vyFWqWBYpBZXnEQAvOu7FLLEzG5CxmnGubGpmbfFbLDPeMMKIDM5TMLyrbx DcqYJyfGubDH90uZjgJQ0IGj3LIrNzEI0ane4IxGRxMm3RIBTtNA3MQZMsIRNxQEGpSAM5OCSqDgMbKA maVSTsDEPzKUG4QPKtTXKzVK1JKoIpHCJiQNx8XBEb VVBhQLNkhq7ZJDLxIIOuPUT7UqPjPOIvDEKdWKqqCMRrSYYjDBB8ZOSwASFhTD4PQsGaWMEwLYKqMiZz XZLhSHSnud4HIQFsKOXaPzZ1HlRjTPCeJBWbHJucSOBeLSHsOzA8XZQdZZHjIH9SIiDrVYNtVGH1ShQw SQZbZBEmew1BJHMaDGZkNuAgEcHpEQSoUWGyIPudDP IcDAA6FCioQHDqWNUwUA2MEtBqOVQhTOF0TuAfOKRpGSHfzq6AUHRjLODzFCf5WJClDETaWMPmTHlsCC NiOMK8GsX2QVMcGLCpXT9XMfOgQZJnHIM6ZpMbRETpQHWbue7HEMXsUXTaVnnuBJGyOGDbTBUxALmgQG VwKXX1TYg2GXYqVXEqXN7IZdGnGZDyRXtdPiZjYDDs EXLbtx4DSSZrRWPpGYF9LRLcLCAgJWMyGLqaARUuZEV4HkHzLHRwUNCxXP5MOvTqBJKkMAt1UfUvYJBf SOMtfw6XWXQjSGDcCWksLeQmBXFhYZEmOXnaNYOqHEMrExr2NCMxPTPuKZ8VWuFfBMVqBsN2ZQTjSDRa AZVtun8PBFVdAKCyKPSvCAVyDFXsPLFtBLm5dvFhhF VaIKv4DD6KZ4MbjfMmZgHJVt2Sf792YBL1WGYxOx7NF8szIs6nJDTuFLZJPp1TTCa0KNL7EXJ6KELaJX FiCyWyDWbgEbx3SuQrYBt9JOY9EuW+VDi2ULMoTzxoGqX8SATyAbSrNxK3YsHdCNOdYSt2URY5Zw3yPQ ANCj4+WRxseIXnsKrbFFWZYwYxQTH8EBanJJUOTf2S ID Date Data Source [id number] 07/08/2020 11:15:51 AM EST [facility] Name Value Range Interpretation Code Description Data Luli rce(s) Supporting Document(s) &PDF [facility] IAEXOe9rFqRUErAk79/GGRkgWXYch4IgPHjxAUc0CCfsIIXyL5QeoDzbCOLXCI9HEiCrK8rDGgcNGQWf vci [file] Estimation Manager+Xx5I/loy2rPi4demyVsSbezfoHxgnGSYIlh6L7xfSBdaspT+U+CsWvUON7z1sxQL55f1WRos/e97i [file] AgICAgICAgICAgICAgICAgICAgICAgICAgICAgICAgICAgICAgICAgICAgICAgICAgICAgICAgICAgIC AgICAgICAgICAgICAgICANCiAgICAgICAgICAgICAgICAgICAgICAgICAgICAgICAgICAgICAgICAgIC AgICAgICAgICAgICAgICAgICAgICAgICAgICAgICAg ICAgICAgICAgICAgICAgICAgICAgICAgICANCiAgICAgICAgICAgICAgICAgICAgICAgICAgICAgICAg ICAgICAgICAgICAgICAgICAgICAgICAgICAgICAgICAgICAgICAgICAgICAgICAgICAgICAgICAgICAg ICAgICAgICANCiAgICAgICAgICAgICAgICAgICAgIC AgICAgICAgICAgICAgICAgICAgICAgICAgICAgICAgICAgICAgICAgICAgICAgICAgICAgICAgICAgIC AgICAgICAgICAgICAgICAgICANCiAgICAgICAgICAgICAgICAgICAgICAgICAgICAgICAgICAgICAgIC AgICAgICAgICAgICAgICAgICAgICAgICAgICAgICAg ICAgICAgICAgICAgICAgICAgICAgICAgICAgICANCiAgICAgICAgICAgICAgICAgICAgICAgICAgICAg ICAgICAgICAgICAgICAgICAgICAgICAgICAgICAgICAgICAgICAgICAgICAgICAgICAgICAgICAgICAg ICAgICAgICAgICANCiAgICAgICAgICAgICAgICAgIC AgICAgICAgICAgICAgICAgICAgICAgICAgICAgICAgICAgICAgICAgICAgICAgICAgICAgICAgICAgIC AgICAgICAgICAgICAgICAgICAgICANCiAgICAgICAgICAgICAgICAgICAgICAgICAgICAgICAgICAgIC AgICAgICAgICAgICAgICAgICAgICAgICAgICAgICAg ICAgICAgICAgICAgICAgICAgICAgICAgICAgICAgICANCiAgICAgICAgICAgICAgICAgICAgICAgICAg ICAgICAgICAgICAgICAgICAgICAgICAgICAgICAgICAgICAgICAgICAgICAgICAgICAgICAgICAgICAg ICAgICAgICAgICAgICANCiAgICAgICAgICAgICAgIC AgICAgICAgICAgICAgICAgICAgICAgICAgICAgICAgICAgICAgICAgICAgICAgICAgICAgICAgICAgIC AgICAgICAgICAgICAgICAgICAgICAgICANCjw/rHDrC2uihGKhmwN4E7bwNo9VZk4DRM6dp2CzIPAvSR dpvfVcImpEWrUsJXKlClyCPyk8QCtgHN1LwFYrM3Xa Q1XiVVmmXK6EVVQmIYGteIZoJPXrFSBqApL6RMPuJRyvHN9TmTEiSXhgSLCzXHOcZuQtPYKkTXJkZSXx VVVrJSAQGTWxOSPpRuJeUBIvNDQsNYekKRZLME4VScOmR5IqzO30GUtJJi3+YCkuwgNfPtjMSiH8FRNa t2WnYBh6CP2HDMLnJjbkf0BsCvIhPIDXLUohKN5MHN F0FYN6AJIsNl5JCCHrD345cdMlBK4BSq8SLmIvWL5whm2VYsDwBCCfOthXAdm3VJbvDE7HbWMkJGiThE KyWM44cpxCQmPtG0Owy8YiEnN2ERRuKxDvWRmkMUVyDYh6AR64zDgsFV4DAEVzXCEcRR02FUD5VAHmHo 6NXz1RTnXuCQ2stv0VAsMnVXCxMcyZRsm2TRjsFL6F fPJlI9AzuLOrk9pSFiEfJ5HLZNAqPJNyRv5BTRXhDsQlHAEaHOmaQB5vORPhCZALaXdamtY3SG6XGR0o wiIvNB1ATwSgMn1yJk5BLeAuY2FzV9EgJVVnYVNTRRycOY0DMJxtSL8cVJ0So5HTdSHunX1ght0RWDTe CVDiFopztl5GShfqT9X4rCzuUQHyJhXiBBULKScdWH 9CVKHmPTF8ZVIjCxLrOIYVRfOrO12aSF5FW6Vnn97hMjH1HRFqHnIhXUuyHJ60eVbvkjDfaWPxqTfaKC 0NCj4+MQsfceBuDerCTvadFMMINkHvTitSYzKoYOHjYTYwNVQnUxT2RoSrUs9UTZIqWTPlRPTaEtEdXU HqHHLvHButXDBrGIXgHsPdKPUiGBFkTJ8YCtQbGJPy TDU1DFLtUUJmJXPxkp8LQKLwDAXzNOG3PgAqHKUjMABtSKxtEOHlBTXwBablRQOzOYEdFO5CKwMhRSFg LBE0HDIxJSQoEUWhiu9TSXBtVLVuULFlMKDySNSrUDVjJNjtIAOnJUT0PUU1UDCaUBGkTF5BBiFwLTMn KYr6ZUGwOWZzWGHypf7BCLToEVXmLumvVNGaUKYsTJ RxXUceLAOaUJC4XMFzZNGxFKZiXE1JEmCgGSVkAAksKawtYULqXLFlok4ARKIcFVYyTOrtQYNrDJNpSI JfUHxdGXCwUIKuGDM8EJDbESRiGQ0WUtKoLPMuBJO7ICdlQBQhWIWpwg8REFQtQOIgShNnKSHdKAWoBN SoQOgeSIUgSDE1NlH5MFLbKHQdFV1QRxDfGKWoOEP2 HfElPNZcBFEvop0FAKIuXFToNGB0TOAyGZXoSJXsVHxyLOTnMTY4Nbc9SNCeMOCsPS6OEtTgRZAuLOP4 ArWlYJRkFEOudl0WIOPxTRLjLibkCGHeQIBrROJpVOcwGQDcJDW3DNErHVGoZDHhQZ7HQgBkXIAgOPjn UVzwYALrUKGmib1ZHQMfDSUlPERoRgZtYSKpPKArEI hsHCAqTKXbDOKyOLCdRNToRM4GUbHfUEPqGaV2HIEyUEFhOPLedj3SEBFyTDS0BmB0ETSmWNLzCQYxBG owBKZvTMH1ITVcGLTkGOBxTE2VKnYrMXYgNMGiXLSfRBYlTTVzzm0TLSXfTND6XwA6IDScKYQrITDlYE goHERiXPHsJiKmZNGmMBNaDN2ENcUgLDAeAZOrOuAp ZKLaVNCiyg1EZIZvZXJfFku2FILkCJLiNNPhUFxfRLDoXPOjFNQjJFUbDGDmED8WMmEvEWFyJPJ4MTWi CTQeCISjvh3NvIJclQnzaz9JKQoUXe3WkQnbROW1WMneWq4kaWTqMnTcPXPWRa4NqeNmMURtLVDYGPus FJWaUYQcUxNrMxcaCAXeHPg2IvQlKPGkPWr1THrhWK i2EMHhVzT4TZA5CNXeNSEbTtQ0ZhDiTDZrXkHvVbpeOjE7PYQkZlF+OK4iUVe+Fe6Lx3GyirN5ukMxWW dqCXBsWATPReWbDI0UTFp= ID Date Data Source [id number] 07/08/2020 10:31:48 AM EST [facility] Name Value Range Interpretation Code Description Data Luli rce(s) Supporting Document(s) EKG [facility] QNIIZk7xRxGMYvSrz4GuZzWlFWRfVH9xqle3G6N5pIOsD9McbTIqv4wzE8ZjK2RqGJRrZPVMZY6JhBDi jb2 [file] haider/9OKaRR2hLgwsBZJt4+XfOcmmuby7lT3GJq3X3p Bs04jE8TS1F91u5OFA0E5SBlag553LzlZ60QC4a7CKu3h/8E0iZ6wocr7gS6+G/IT2msZt5IhcBQ0Bh3 xoWko35I04scctPepMVgzpVb/G++kg1M3xp5yajc5Pno42xS9LnArx412lgwIt1ihJ5b4cvBgGXD6pr0 htQ+In/MvAq7l5B+H3/KmNuk196vj+NvuiPt+y [file] UTH8pYWiIpp8ZaOxAcbsILZLIw== ID Date Data Source [id number] 07/08/2020 10:09:43 AM EST [facility] Name Value Range Interpretation Code Description Data Luli rce(s) Supporting Document(s) POC NOVA GLU 163 mg/dL (70-99) H [facility] PERFORMED BY [facility] CLINICAL STAFF ID Date Data Source [id number] 07/08/2020 09:20:18 AM EST [facility] Name Value Range Interpretation Code Description Data Luli rce(s) Supporting Document(s) EKG [facility] XBUPFo3rVoDKByVan1KbUkRfIHLdWP7bwuj9N4Z5eZZzZ5EdxPEoq9xhE4QrR2ZiJPNgGELKCN1FlUVx jb2 [file] [id number]+GgllnTLpxYjbZAUOIWD4ChITQOKGT2A= ID Date Data Source [id number] 07/08/2020 07:18:35 AM EST [facility] Name Value Range Interpretation Code Description Data Luli rce(s) Supporting Document(s) POC NOVA GLU 153 mg/dL (70-99) [facility] CLINICAL STAFF ID Date Data Source [id number] 07/03/2020 11:00:00 AM EST [facility] ([facility]) Name Value Range Interpretation Code Description Data Luli rce(s) Supporting Document(s) ID Date Data Source [id number] 07/03/2020 [facility]:00[facility] Range Interpretation Code Description Data Luli rce(s) Supporting Document(s) ID Date Data Source [id number] 07/03/2020 11:00:00 AM EST DAN[facility] ([facility]) Name Value Range Interpretation Code Description Data Luli rce(s) Supporting Document(s) ID Date Data Source [id number] 07/03/2020 11:00:00 AM EST DAN[facility] ([facility]) Name Value Range Interpretation Code Description Data Luli rce(s) Supporting Document(s) ID Date Data Source [id number] 07/03/2020 11:00:00 AM EST DANNA [facility]) Name Value Range Interpretation Code Description Data Luli rce(s) Supporting Document(s) ID Date Data Source [id number] 07/03/2020 11:00:00 AM EST [facility] Name Value Range Interpretation Code Description Data Luli rce(s) Supporting Document(s) SARS coronavirus 2 RNA Not Detected [facility] This lab was ordered by [facility] and reported by [facility]. ID Date Data Source [id number] 07/03/2020 11:00:00 [facility] Name Value Range Interpretation Code Description Data Luli rce(s) Supporting Document(s) ID Date Data Source [id number] 07/03/2020 11:00:00 AM EST [facility] ([facility]) Name Value Range Interpretation Code Description Data Luli rce(s) Supporting Document(s) ID Date Data Source [id number] 07/03/2020 11:00:00 AM EST DAN[facility] ([facility]) Name Value Range Interpretation Code Description Data Luli rce(s) Supporting Document(s) ID Date Data Source [id number] 06/29/2020 02:58:02 PM [facility] Name Date of Age Gend*PT [id number] Martha Miranda 1960 59 years F ---PT Location Admission Date/Time Visit ID Attending Provider --- --- --- --- EPI ID CSN Admitting Provider [id number] ---Addended by: ZUHAIR GOULD on: 06/29/2020 02:58 PM Modules accepted: Orders Name Value Range Interpretation Code Description Data Luli rce(s) Supporting Document(s) ID Date Data Source [id number] 06/27/2020 04:30:00 PM EST [facility]) Name Value Range Interpretation Code Description Data Luli rce(s) Supporting Document(s) sars-cov-2 negative negative Sars-cov-2 [facility]) ID Date Data Source [id number] 06/27/2020 04:30:00 PM EST [facility]) Name Value Range Interpretation Code Description Data Luli rce(s) Supporting Document(s) sars-cov-2 negative negative Sars-cov-2 [facility]) ID Date Data Source [id number] 06/27/2020 04:30:00 PM EST [facility]) Name Value Range Interpretation Code Description Data Luli rce(s) Supporting Document(s) sars-cov-2 negative negative Sars-cov-2 [facility]) ID Date Data Source [id number] 06/27/2020 04:30:00 PM EST [facility]) Name Value Range Interpretation Code Description Data Luli rce(s) Supporting Document(s) sars-cov-2 negative negative Sars-cov-2 [facility]) ID Date Data Source [id number] 06/27/2020 04:30:00 PM EST [facility] ([facility]) Name Value Range Interpretation Code Description Data Luli rce(s) Supporting Document(s) sars-cov-2 negative negative Sars-cov-2 [facility] ([facility]) ID Date Data Source [id number] 06/27/2020 04:30:00 PM EST [facility] ([facility]) Name Value Range Interpretation Code Description Data Luli rce(s) Supporting Document(s) sars-cov-2 negative negative Sars-cov-2 [facility] ([facility]) ID Date Data Source [id number] 06/27/2020 04:30:00 PM EST [facility] ([facility]) Name Value Range Interpretation Code Description Data Luli rce(s) Supporting Document(s) sars-cov-2 negative negative Sars-cov-2 [facility] ([facility]) ID Date Data Source [id number] 06/27/2020 04:30:00 PM EST [facility] ([facility]) Name Value Range Interpretation Code Description Data Luli rce(s) Supporting Document(s) sars-cov-2 negative negative Sars-cov-2 [facility]) ID Date Data Source [id number] 06/27/2020 04:30:00 PM EST [facility] ([facility]) Name Value Range Interpretation Code Description Data Luli rce(s) Supporting Document(s) sars-cov-2 negative negative Sars-cov-2 [facility]) ID Date Data Source [id number] 06/27/2020 04:26:00 PM EST [facility] Name Value Range Interpretation Code Description Data Luli rce(s) Supporting Document(s) SARS coronavirus 2 RdRp gene [Presence] in Respiratory specimen by JUAN with probe detection Not detected [facility] This lab was ordered by [facility] and reported by [facility]. ID Date Data Source [id number] 06/24/2020 10:00:00 AM EST DANNA ([facility]) Name Value Range Interpretation Code Description Data Luli rce(s) Supporting Document(s) total 25(oh) vitamin D 28.2 NG/mL 30.0-100.0 Below low normal T otal 25(Oh) Vitamin D DANNA ([facility]) ID Date Data Source [id number] 06/24/2020 10:00:00 AM EST DANNA ([facility]) Name Value Range Interpretation Code Description Data Luli rce(s) Supporting Document(s) triglycerides level 373 mg/dL <150 Above high normal Triglycer ides Level DANNA ([facility]) cholesterol level 216 mg/dL <200 Above high normal Cholesterol Level DANNA ([facility]) Cholesterol in LDL [Mass/volume] in Serum or Plasma 96 mg/dL <1 00 LDL Cholesterol DANNA ([facility]) HDL cholesterol 45 mg/dL >40 HDL Cholesterol ATHE ([facility]) non-HDL-C 171 mg/dL Non-hdl-c DANNA ([facility]) cholesterol risk ratio <5 Cholesterol R isk Ratio DANNA ([facility]) ID Date Data Source [id number] 06/24/2020 10:00:00 AM EST DANNA ([facility]) Name Value Range Interpretation Code Description Data Luli rce(s) Supporting Document(s) glucose, fasting 191 mg/dL 70-100 Above high normal Glucose, Fas ting DANNA ([facility]) blood urea nitrogen 19 mg/dL 7-18 Above high normal Blood Ure a Nitrogen DANNA ([facility]) potassium serum 4.4 mEq/L 3.5-5.1 Potassium Serum ATHE NA ([facility]) glomerular filtration rate >51 Below low normal Julianna merular Filtration Rate DANNA ([facility]) sodium level 143 mEq/L 136-145 Sodium Level DANNA ([facility]) creatinine for GFR 1.38 mg/dL 0.55-1.30 Above high normal Creatinine for GFR DANNA ([facility]) anion gap 6 mEq/L 8-16 Below low normal Anion Gap DANNA ( [facility]) carbon dioxide level 28 mEq/L 21-32 Carbon Dioxide Level DANNA ([facility]) chloride level 109 mEq/L 98-107 Above high normal Chloride Level DANNA ([facility]) calcium level 8.9 mg/dL 8.5-10.1 Calcium Level DANNA ( [facility]) AST/SGOT 11 U/L 7-37 AST/SGOT DANNA ([facility]) ALT/SGPT 29 U/L 12-78 ALT/SGPT DANNA ([facility]) alkaline phosphatase 138 U/L 45-117 Above high normal Alkaline Phosphatase DANNA ([facility]) total protein 6.9 gm/dL 6.4-8.2 Total Protein DANNA ( [facility]) bilirubin,total 0.2 mg/dL 0.2-1.0 Bilirubin,total ATHE NA ([facility]) albumin/globulin ratio 1.2-2.2 Below low normal Albumin /globulin Ratio DANNA ([facility]) albumin 3.5 gm/dL 3.2-5.2 Albumin DANNA ([facility]) ID Date Data Source [id number] 06/24/2020 10:00:00 AM EST DANNA ([facility]) Name Value Range Interpretation Code Description Data Luli rce(s) Supporting Document(s) ID Date Data Source [id number] 06/24/2020 10:00:00 AM EST DANNA ([facility]) Name Value Range Interpretation Code Description Data Luli rce(s) Supporting Document(s) ID Date Data Source [id number] 06/24/2020 10:00:00 AM EST DANNA ([facility]) Name Value Range Interpretation Code Description Data Luli rce(s) Supporting Document(s) total 25(oh) vitamin D 28.2 NG/mL 30.0-100.0 Below low normal T otal 25(Oh) Vitamin D DANNA ([facility]) ID Date Data Source [id number] 06/24/2020 10:00:00 AM EST DANNA ([facility]) Name Value Range Interpretation Code Description Data Luli rce(s) Supporting Document(s) triglycerides level 373 mg/dL <150 Above high normal Triglycer ides Level DANNA ([facility]) cholesterol level 216 mg/dL <200 Above high normal Cholesterol Level DANNA ([facility]) Cholesterol in LDL [Mass/volume] in Serum or Plasma 96 mg/dL <1 00 LDL Cholesterol DANNA ([facility]) HDL cholesterol 45 mg/dL >40 HDL Cholesterol ATHE NA ([facility]) non-HDL-C 171 mg/dL Non-hdl-c DANNA ([facility]) cholesterol risk ratio <5 Cholesterol R isk Ratio DANNA ([facility]) ID Date Data Source [id number] 06/24/2020 10:00:00 AM EST DANNA ([facility]) Name Value Range Interpretation Code Description Data Luli rce(s) Supporting Document(s) glucose, fasting 191 mg/dL 70-100 Above high normal Glucose, Fas ting DANNA ([facility]) glomerular filtration rate >51 Below low normal Julianna merular Filtration Rate DANNA ([facility]) creatinine for GFR 1.38 mg/dL 0.55-1.30 Above high normal Creatinine for GFR DANNA ([facility]) blood urea nitrogen 19 mg/dL 7-18 Above high normal Blood Ure a Nitrogen DANNA ([facility]) sodium level 143 mEq/L 136-145 Sodium Level DANNA ([facility]) potassium serum 4.4 mEq/L 3.5-5.1 Potassium Serum ATHE NA ([facility]) chloride level 109 mEq/L 98-107 Above high normal Chloride Level DANNA ([facility]) carbon dioxide level 28 mEq/L 21-32 Carbon Dioxide Level DANNA ([facility]) anion gap 6 mEq/L 8-16 Below low normal Anion Gap DANNA ( [facility]) calcium level 8.9 mg/dL 8.5-10.1 Calcium Level DANNA ( [facility]) AST/SGOT 11 U/L 7-37 AST/SGOT DANNA ([facility]) ALT/SGPT 29 U/L 12-78 ALT/SGPT DANNA ([facility]) alkaline phosphatase 138 U/L 45-117 Above high normal Alkaline Phosphatase DANNA ([facility]) bilirubin,total 0.2 mg/dL 0.2-1.0 Bilirubin,total ATHE NA ([facility]) total protein 6.9 gm/dL 6.4-8.2 Total Protein DANNA ( [facility]) albumin/globulin ratio 1.2-2.2 Below low normal Albumin /globulin Ratio DANNA ([facility]) albumin 3.5 gm/dL 3.2-5.2 Albumin DANNA ([facility]) ID Date Data Source [id number] 06/24/2020 10:00:00 AM EST DANNA ([facility]) Name Value Range Interpretation Code Description Data Luli rce(s) Supporting Document(s) ID Date Data Source [id number] 06/24/2020 10:00:00 AM EST DANNA ([facility]) Name Value Range Interpretation Code Description Data Luli rce(s) Supporting Document(s) ID Date Data Source [id number] 06/24/2020 10:00:00 AM EST DANNA ([facility]) Name Value Range Interpretation Code Description Data Luli rce(s) Supporting Document(s) ID Date Data Source [id number] 06/24/2020 10:00:00 AM EST DANNA ([facility]) Name Value Range Interpretation Code Description Data Luli rce(s) Supporting Document(s) total 25(oh) vitamin D 28.2 NG/mL 30.0-100.0 Below low normal T otal 25(Oh) Vitamin D DANNA ([facility]) ID Date Data Source [id number] 06/24/2020 10:00:00 AM EST DANNA ([facility]) Name Value Range Interpretation Code Description Data Luli rce(s) Supporting Document(s) Cholesterol in LDL [Mass/volume] in Serum or Plasma 96 mg/dL <1 00 LDL Cholesterol DANNA ([facility]) cholesterol level 216 mg/dL <200 Above high normal Cholesterol Level DANNA ([facility]) triglycerides level 373 mg/dL <150 Above high normal Triglycer ides Level DANNA ([facility]) HDL cholesterol 45 mg/dL >40 HDL Cholesterol ATHE NA ([facility]) cholesterol risk ratio <5 Cholesterol R isk Ratio DANNA ([facility]) non-HDL-C 171 mg/dL Non-hdl-c DANNA ([facility]) ID Date Data Source [id number] 06/24/2020 10:00:00 AM EST DANNA ([facility]) Name Value Range Interpretation Code Description Data Luli rce(s) Supporting Document(s) glucose, fasting 191 mg/dL 70-100 Above high normal Glucose, Fas ting DANNA ([facility]) creatinine for GFR 1.38 mg/dL 0.55-1.30 Above high normal Creatinine for GFR DANNA ([facility]) blood urea nitrogen 19 mg/dL 7-18 Above high normal Blood Ure a Nitrogen DANNA ([facility]) chloride level 109 mEq/L 98-107 Above high normal Chloride Level DANNA ([facility]) potassium serum 4.4 mEq/L 3.5-5.1 Potassium Serum ATHE NA ([facility]) glomerular filtration rate >51 Below low normal Julianna merular Filtration Rate DANNA ([facility]) sodium level 143 mEq/L 136-145 Sodium Level DANNA ([facility]) anion gap 6 mEq/L 8-16 Below low normal Anion Gap DANNA ( [facility]) calcium level 8.9 mg/dL 8.5-10.1 Calcium Level DANNA ( [facility]) carbon dioxide level 28 mEq/L 21-32 Carbon Dioxide Level DANNA ([facility]) AST/SGOT 11 U/L 7-37 AST/SGOT DANNA ([facility]) total protein 6.9 gm/dL 6.4-8.2 Total Protein DANNA ( [facility]) alkaline phosphatase 138 U/L 45-117 Above high normal Alkaline Phosphatase DANNA ([facility]) ALT/SGPT 29 U/L 12-78 ALT/SGPT DANNA ([facility]) bilirubin,total 0.2 mg/dL 0.2-1.0 Bilirubin,total ATHE NA ([facility]) albumin/globulin ratio 1.2-2.2 Below low normal Albumin /globulin Ratio DANNA ([facility]) albumin 3.5 gm/dL 3.2-5.2 Albumin DANNA ([facility]) ID Date Data Source [id number] 06/24/2020 10:00:00 AM EST DANNA ([facility]) Name Value Range Interpretation Code Description Data Luli rce(s) Supporting Document(s) ID Date Data Source [id number] 06/24/2020 10:00:00 AM EST DANNA ([facility]) Name Value Range Interpretation Code Description Data Luli rce(s) Supporting Document(s) ID Date Data Source [id number] 06/24/2020 10:00:00 AM EST DANNA ([facility]) Name Value Range Interpretation Code Description Data Luli rce(s) Supporting Document(s) ID Date Data Source [id number] 06/24/2020 10:00:00 AM EST DANNA ([facility]) Name Value Range Interpretation Code Description Data Luli rce(s) Supporting Document(s) total 25(oh) vitamin D 28.2 NG/mL 30.0-100.0 Below low normal T otal 25(Oh) Vitamin D DANNA ([facility]) ID Date Data Source [id number] 06/24/2020 10:00:00 AM EST DANNA ([facility]) Name Value Range Interpretation Code Description Data Luli rce(s) Supporting Document(s) cholesterol level 216 mg/dL <200 Above high normal Cholesterol Level DANNA ([facility]) HDL cholesterol 45 mg/dL >40 HDL Cholesterol ATHE ([facility]) triglycerides level 373 mg/dL <150 Above high normal Triglycer ides Level DANNA ([facility]) non-HDL-C 171 mg/dL Non-hdl-c DANNA ([facility]) cholesterol risk ratio <5 Cholesterol R isk Ratio DANNA ([facility]) Cholesterol in LDL [Mass/volume] in Serum or Plasma 96 mg/dL <1 00 LDL Cholesterol DANNA ([facility]) ID Date Data Source [id number] 06/24/2020 10:00:00 AM EST INDIALANTIC ([facility]) Name Value Range Interpretation Code Description Data Luli rce(s) Supporting Document(s) creatinine for GFR 1.38 mg/dL 0.55-1.30 Above high normal Creatinine for GFR DANNA ([facility]) blood urea nitrogen 19 mg/dL 7-18 Above high normal Blood Ure a Nitrogen DANNA ([facility]) glucose, fasting 191 mg/dL 70-100 Above high normal Glucose, Fas ting DANNA ([facility]) glomerular filtration rate >51 Below low normal Julianna merular Filtration Rate DANNA ([facility]) sodium level 143 mEq/L 136-145 Sodium Level DANNA ([facility]) chloride level 109 mEq/L 98-107 Above high normal Chloride Level DANNA ([facility]) potassium serum 4.4 mEq/L 3.5-5.1 Potassium Serum ATHE NA ([facility]) AST/SGOT 11 U/L 7-37 AST/SGOT DANNA ([facility]) calcium level 8.9 mg/dL 8.5-10.1 Calcium Level DANNA ( [facility]) carbon dioxide level 28 mEq/L 21-32 Carbon Dioxide Level DANNA ([facility]) anion gap 6 mEq/L 8-16 Below low normal Anion Gap DANNA ( [facility]) alkaline phosphatase 138 U/L 45-117 Above high normal Alkaline Phosphatase DANNA ([facility]) total protein 6.9 gm/dL 6.4-8.2 Total Protein DANNA ( [facility]) ALT/SGPT 29 U/L 12-78 ALT/SGPT DANNA ([facility]) bilirubin,total 0.2 mg/dL 0.2-1.0 Bilirubin,total ATHE NA ([facility]) albumin/globulin ratio 1.2-2.2 Below low normal Albumin /globulin Ratio ADNNA ([facility]) albumin 3.5 gm/dL 3.2-5.2 Albumin DANNA ([facility]) ID Date Data Source [id number] 06/24/2020 10:00:00 AM EST DANNA ([facility]) Name Value Range Interpretation Code Description Data Luli rce(s) Supporting Document(s) ID Date Data Source [id number] 06/24/2020 10:00:00 AM EST DANNA ([facility]) Name Value Range Interpretation Code Description Data Luli rce(s) Supporting Document(s) ID Date Data Source [id number] 06/24/2020 10:00:00 AM EST DANNA ([facility]) Name Value Range Interpretation Code Description Data Luli rce(s) Supporting Document(s) ID Date Data Source [id number] 06/24/2020 10:00:00 AM EST DANNA ([facility]) Name Value Range Interpretation Code Description Data Luli rce(s) Supporting Document(s) total 25(oh) vitamin D 28.2 NG/mL 30.0-100.0 Below low normal T otal 25(Oh) Vitamin D DANNA ([facility]) ID Date Data Source [id number] 06/24/2020 10:00:00 AM EST DANNA ([facility]) Name Value Range Interpretation Code Description Data Luli rce(s) Supporting Document(s) HDL cholesterol 45 mg/dL >40 HDL Cholesterol ATHE ([facility]) cholesterol level 216 mg/dL <200 Above high normal Cholesterol Level DANNA ([facility]) triglycerides level 373 mg/dL <150 Above high normal Triglycer ides Level DANNA ([facility]) Cholesterol in LDL [Mass/volume] in Serum or Plasma 96 mg/dL <1 00 LDL Cholesterol DANNA ([facility]) cholesterol risk ratio <5 Cholesterol R isk Ratio DANNA ([facility]) non-HDL-C 171 mg/dL Non-hdl-c DANNA ([facility]) ID Date Data Source [id number] 06/24/2020 10:00:00 AM EST DANNA ([facility]) Name Value Range Interpretation Code Description Data Luli rce(s) Supporting Document(s) glucose, fasting 191 mg/dL 70-100 Above high normal Glucose, Fas ting DANNA ([facility]) creatinine for GFR 1.38 mg/dL 0.55-1.30 Above high normal Creatinine for GFR DANNA ([facility]) blood urea nitrogen 19 mg/dL 7-18 Above high normal Blood Ure a Nitrogen DANNA ([facility]) glomerular filtration rate >51 Below low normal Julianna merular Filtration Rate DANNA ([facility]) sodium level 143 mEq/L 136-145 Sodium Level DANNA ([facility]) chloride level 109 mEq/L 98-107 Above high normal Chloride Level DANNA ([facility]) potassium serum 4.4 mEq/L 3.5-5.1 Potassium Serum ATHE NA ([facility]) carbon dioxide level 28 mEq/L 21-32 Carbon Dioxide Level DANNA ([facility]) anion gap 6 mEq/L 8-16 Below low normal Anion Gap DANNA ( [facility]) calcium level 8.9 mg/dL 8.5-10.1 Calcium Level DANNA ( [facility]) ALT/SGPT 29 U/L 12-78 ALT/SGPT DANNA ([facility]) alkaline phosphatase 138 U/L 45-117 Above high normal Alkaline Phosphatase DANNA ([facility]) bilirubin,total 0.2 mg/dL 0.2-1.0 Bilirubin,total ATHE NA ([facility]) AST/SGOT 11 U/L 7-37 AST/SGOT DANNA ([facility]) albumin/globulin ratio 1.2-2.2 Below low normal Albumin /globulin Ratio DANNA ([facility]) total protein 6.9 gm/dL 6.4-8.2 Total Protein DANNA ( [facility]) albumin 3.5 gm/dL 3.2-5.2 Albumin DANNA ([facility]) ID Date Data Source [id number] 06/24/2020 10:00:00 AM EST DANNA ([facility]) Name Value Range Interpretation Code Description Data Luli rce(s) Supporting Document(s) ID Date Data Source [id number] 06/24/2020 10:00:00 AM EST DANNA ([facility]) Name Value Range Interpretation Code Description Data Luli rce(s) Supporting Document(s) ID Date Data Source [id number] 06/24/2020 10:00:00 AM EST DANNA ([facility]) Name Value Range Interpretation Code Description Data Luli rce(s) Supporting Document(s) ID Date Data Source [id number] 06/24/2020 10:00:00 AM EST DANNA ([facility]) Name Value Range Interpretation Code Description Data Luli rce(s) Supporting Document(s) total 25(oh) vitamin D 28.2 NG/mL 30.0-100.0 Below low normal T otal 25(Oh) Vitamin D DANNA ([facility]) ID Date Data Source [id number] 06/24/2020 10:00:00 AM EST DANNA ([facility]) Name Value Range Interpretation Code Description Data Luli rce(s) Supporting Document(s) triglycerides level 373 mg/dL <150 Above high normal Triglycer ides Level DANNA ([facility]) Cholesterol in LDL [Mass/volume] in Serum or Plasma 96 mg/dL <1 00 LDL Cholesterol DANNA ([facility]) cholesterol level 216 mg/dL <200 Above high normal Cholesterol Level DANNA ([facility]) non-HDL-C 171 mg/dL Non-hdl-c DANNA ([facility]) HDL cholesterol 45 mg/dL >40 HDL Cholesterol ATHE NA ([facility]) cholesterol risk ratio <5 Cholesterol R isk Ratio DANNA ([facility]) ID Date Data Source [id number] 06/24/2020 10:00:00 AM EST DANNA ([facility]) Name Value Range Interpretation Code Description Data Luli rce(s) Supporting Document(s) blood urea nitrogen 19 mg/dL 7-18 Above high normal Blood Ure a Nitrogen DANNA ([facility]) glucose, fasting 191 mg/dL 70-100 Above high normal Glucose, Fas ting DANNA ([facility]) glomerular filtration rate >51 Below low normal Julianna merular Filtration Rate DANNA ([facility]) sodium level 143 mEq/L 136-145 Sodium Level DANNA ([facility]) creatinine for GFR 1.38 mg/dL 0.55-1.30 Above high normal Creatinine for GFR DANNA ([facility]) potassium serum 4.4 mEq/L 3.5-5.1 Potassium Serum ATHE NA ([facility]) anion gap 6 mEq/L 8-16 Below low normal Anion Gap DANNA ( [facility]) chloride level 109 mEq/L 98-107 Above high normal Chloride Level DANNA ([facility]) calcium level 8.9 mg/dL 8.5-10.1 Calcium Level DANNA ( [facility]) carbon dioxide level 28 mEq/L 21-32 Carbon Dioxide Level DANNA ([facility]) AST/SGOT 11 U/L 7-37 AST/SGOT DANNA ([facility]) ALT/SGPT 29 U/L 12-78 ALT/SGPT DANNA ([facility]) bilirubin,total 0.2 mg/dL 0.2-1.0 Bilirubin,total ATHE NA ([facility]) alkaline phosphatase 138 U/L 45-117 Above high normal Alkaline Phosphatase DANNA ([facility]) total protein 6.9 gm/dL 6.4-8.2 Total Protein DANNA ( [facility]) albumin 3.5 gm/dL 3.2-5.2 Albumin DANNA ([facility]) albumin/globulin ratio 1.2-2.2 Below low normal Albumin /globulin Ratio DANNA ([facility]) ID Date Data Source [id number] 06/24/2020 10:00:00 AM EST DANNA ([facility]) Name Value Range Interpretation Code Description Data Luli rce(s) Supporting Document(s) ID Date Data Source [id number] 06/24/2020 10:00:00 AM EST DANNA ([facility]) Name Value Range Interpretation Code Description Data Luli rce(s) Supporting Document(s) ID Date Data Source [id number] 06/24/2020 10:00:00 AM EST DANNA ([facility]) Name Value Range Interpretation Code Description Data Luli rce(s) Supporting Document(s) ID Date Data Source [id number] 06/24/2020 10:00:00 AM EST DANNA ([facility]) Name Value Range Interpretation Code Description Data Luli rce(s) Supporting Document(s) total 25(oh) vitamin D 28.2 NG/mL 30.0-100.0 Below low normal T otal 25(Oh) Vitamin D DANNA ([facility]) ID Date Data Source [id number] 06/24/2020 10:00:00 AM EST DANNA ([facility]) Name Value Range Interpretation Code Description Data Luli rce(s) Supporting Document(s) cholesterol level 216 mg/dL <200 Above high normal Cholesterol Level DANNA ([facility]) triglycerides level 373 mg/dL <150 Above high normal Triglycer ides Level DANNA ([facility]) cholesterol risk ratio <5 Cholesterol R isk Ratio DANNA ([facility]) non-HDL-C 171 mg/dL Non-hdl-c DANNA ([facility]) HDL cholesterol 45 mg/dL >40 HDL Cholesterol ATHE NA ([facility]) Cholesterol in LDL [Mass/volume] in Serum or Plasma 96 mg/dL <1 00 LDL Cholesterol DANNA ([facility]) ID Date Data Source [id number] 06[facility]24/2020 [facility] Value [facility] Interpretation Code Description Data Luli rce(s) Supporting Document(s) blood urea nitrogen 19 mg/dL 7-18 Above high normal Blood Ure a Nitrogen DANNA ([facility]) glucose, fasting 191 mg/dL 70-100 Above high normal Glucose, Fas ting DANNA ([facility]) creatinine for GFR 1.38 mg/dL 0.55-1.30 Above high normal Creatinine for GFR DANNA ([facility]) glomerular filtration rate >51 Below low normal Julianna merular Filtration Rate DANNA ([facility]) chloride level 109 mEq/L 98-107 Above high normal Chloride Level DANNA ([facility]) sodium level 143 mEq/L 136-145 Sodium Level DANNA ([facility]) potassium serum 4.4 mEq/L 3.5-5.1 Potassium Serum ATHE NA ([facility]) calcium level 8.9 mg/dL 8.5-10.1 Calcium Level DANNA ( [facility]) carbon dioxide level 28 mEq/L 21-32 Carbon Dioxide Level DANNA ([facility]) AST/SGOT 11 U/L 7-37 AST/SGOT DANNA ([facility]) anion gap 6 mEq/L 8-16 Below low normal Anion Gap DANNA ( [facility]) alkaline phosphatase 138 U/L 45-117 Above high normal Alkaline Phosphatase DANNA ([facility]) bilirubin,total 0.2 mg/dL 0.2-1.0 Bilirubin,total ATHE NA ([facility]) total protein 6.9 gm/dL 6.4-8.2 Total Protein DANNA ( [facility]) ALT/SGPT 29 U/L 12-78 ALT/SGPT DANNA ([facility]) albumin 3.5 gm/dL 3.2-5.2 Albumin DANNA ([facility]) albumin/globulin ratio 1.2-2.2 Below low normal Albumin /globulin Ratio DANNA ([facility]) ID Date Data Source [id number] 06/24/2020 10:00:00 AM EST DANNA ([facility]) Name Value Range Interpretation Code Description Data Luli rce(s) Supporting Document(s) ID Date Data Source [id number] 06/24/2020 10:00:00 AM EST DANNA ([facility]) Name Value Range Interpretation Code Description Data Luli rce(s) Supporting Document(s) ID Date Data Source [id number] 06/24/2020 10:00:00 AM EST DANNA ([facility]) Name Value Range Interpretation Code Description Data Luli rce(s) Supporting Document(s) ID Date Data Source [id number] 06/24/2020 10:00:00 AM EST DANNA ([facility]) Name Value Range Interpretation Code Description Data Luli rce(s) Supporting Document(s) ID Date Data Source [id number] 06/24/2020 10:00:00 AM EST DANNA ([facility]) Name Value Range Interpretation Code Description Data Luli rce(s) Supporting Document(s) total 25(oh) vitamin D 28.2 NG/mL 30.0-100.0 Below low normal T otal 25(Oh) Vitamin D DANNA ([facility]) ID Date Data Source [id number] 06/24/2020 10:00:00 AM EST DANNA ([facility]) Name Value Range Interpretation Code Description Data Luli rce(s) Supporting Document(s) triglycerides level 373 mg/dL <150 Above high normal Triglycer ides Level DANNA ([facility]) cholesterol level 216 mg/dL <200 Above high normal Cholesterol Level DANNA ([facility]) HDL cholesterol 45 mg/dL >40 HDL Cholesterol ATHE ([facility]) non-HDL-C 171 mg/dL Non-hdl-c DANNA ([facility]) Cholesterol in LDL [Mass/volume] in Serum or Plasma 96 mg/dL <1 00 LDL Cholesterol DANNA ([facility]) cholesterol risk ratio <5 Cholesterol R isk Ratio DANNA ([facility]) ID Date Data Source [id number] 06/24/2020 10:00:00 AM EST DANNA ([facility]) Name Value Range Interpretation Code Description Data Luli rce(s) Supporting Document(s) glucose, fasting 191 mg/dL 70-100 Above high normal Glucose, Fas ting DANNA ([facility]) blood urea nitrogen 19 mg/dL 7-18 Above high normal Blood Ure a Nitrogen INDIALANTIC ([facility]) creatinine for GFR 1.38 mg/dL 0.55-1.30 Above high normal Creatinine for GFR DANNA ([facility]) glomerular filtration rate >51 Below low normal Julianna merular Filtration Rate DANNA ([facility]) sodium level 143 mEq/L 136-145 Sodium Level DANNA ([facility]) potassium serum 4.4 mEq/L 3.5-5.1 Potassium Serum ATHE NA ([facility]) chloride level 109 mEq/L 98-107 Above high normal Chloride Level DANNA ([facility]) calcium level 8.9 mg/dL 8.5-10.1 Calcium Level DANNA ( [facility]) carbon dioxide level 28 mEq/L 21-32 Carbon Dioxide Level DANNA ([facility]) anion gap 6 mEq/L 8-16 Below low normal Anion Gap DANNA ( [facility]) ALT/SGPT 29 U/L 12-78 ALT/SGPT DANNA ([facility]) AST/SGOT 11 U/L 7-37 AST/SGOT DANNA ([facility]) alkaline phosphatase 138 U/L 45-117 Above high normal Alkaline Phosphatase DANNA ([facility]) bilirubin,total 0.2 mg/dL 0.2-1.0 Bilirubin,total ATHE ([facility]) total protein 6.9 gm/dL 6.4-8.2 Total Protein DANNA ( [facility]) albumin 3.5 gm/dL 3.2-5.2 Albumin DANNA ([facility]) albumin/globulin ratio 1.2-2.2 Below low normal Albumin /globulin Ratio DANNA ([facility]) ID Date Data Source [id number] 06/24/2020 10:00:00 AM EST DANNA ([facility]) Name Value Range Interpretation Code Description Data Luli rce(s) Supporting Document(s) ID Date Data Source [id number] 06/24/2020 10:00:00 AM EST DANNA ([facility]) Name Value Range Interpretation Code Description Data Luli rce(s) Supporting Document(s) ID Date Data Source [id number] 06/24/2020 10:00:00 AM EST DANNA ([facility]) Name Value Range Interpretation Code Description Data Luli rce(s) Supporting Document(s) ID Date Data Source [id number] 06/24/2020 10:00:00 AM EST DANNA ([facility]) Name Value Range Interpretation Code Description Data Luli rce(s) Supporting Document(s) total 25(oh) vitamin D 28.2 NG/mL 30.0-100.0 Below low normal T otal 25(Oh) Vitamin D DANNA ([facility]) ID Date Data Source [id number] 06/24/2020 10:00:00 AM EST DANNA ([facility]) Name Value Range Interpretation Code Description Data Luli rce(s) Supporting Document(s) HDL cholesterol 45 mg/dL >40 HDL Cholesterol ATHE NA ([facility]) triglycerides level 373 mg/dL <150 Above high normal Triglycer ides Level DANNA ([facility]) cholesterol level 216 mg/dL <200 Above high normal Cholesterol Level DANNA ([facility]) non-HDL-C 171 mg/dL Non-hdl-c DANNA ([facility]) Cholesterol in LDL [Mass/volume] in Serum or Plasma 96 mg/dL <1 00 LDL Cholesterol DANNA ([facility]) cholesterol risk ratio <5 Cholesterol R isk Ratio DANNA ([facility]) ID Date Data Source [id number] 06/24/2020 10:00:00 AM EST DANNA ([facility]) Name Value Range Interpretation Code Description Data Luli rce(s) Supporting Document(s) glucose, fasting 191 mg/dL 70-100 Above high normal Glucose, Fas ting DANNA ([facility]) blood urea nitrogen 19 mg/dL 7-18 Above high normal Blood Ure a Nitrogen DANNA ([facility]) glomerular filtration rate >51 Below low normal Julianna merular Filtration Rate DANNA ([facility]) creatinine for GFR 1.38 mg/dL 0.55-1.30 Above high normal Creatinine for GFR DANNA ([facility]) potassium serum 4.4 mEq/L 3.5-5.1 Potassium Serum ATHE NA ([facility]) chloride level 109 mEq/L 98-107 Above high normal Chloride Level DANNA ([facility]) sodium level 143 mEq/L 136-145 Sodium Level DANNA ([facility]) carbon dioxide level 28 mEq/L 21-32 Carbon Dioxide Level DANNA ([facility]) anion gap 6 mEq/L 8-16 Below low normal Anion Gap DANNA ( [facility]) ALT/SGPT 29 U/L 12-78 ALT/SGPT DANNA ([facility]) alkaline phosphatase 138 U/L 45-117 Above high normal Alkaline Phosphatase DANNA ([facility]) AST/SGOT 11 U/L 7-37 AST/SGOT DANNA ([facility]) calcium level 8.9 mg/dL 8.5-10.1 Calcium Level DANNA ( [facility]) total protein 6.9 gm/dL 6.4-8.2 Total Protein DANNA ( [facility]) bilirubin,total 0.2 mg/dL 0.2-1.0 Bilirubin,total ATHE ([facility]) albumin 3.5 gm/dL 3.2-5.2 Albumin DANNA ([facility]) albumin/globulin ratio 1.2-2.2 Below low normal Albumin /globulin Ratio DANNA ([facility]) ID Date Data Source [id number] 06/24/2020 10:00:00 AM EST DANNA ([facility]) Name Value Range Interpretation Code Description Data Luli rce(s) Supporting Document(s) ID Date Data Source [id number] 06/24/2020 10:00:00 AM EST DANNA ([facility]) Name Value Range Interpretation Code Description Data Luli rce(s) Supporting Document(s) ID Date Data Source [id number] 06/24/2020 10:00:00 AM EST INDIALANTIC ([facility]) Name Value Range Interpretation Code Description Data Luli rce(s) Supporting Document(s) ID Date Data Source [id number] 06/17/2020 12:19:00 PM EST DANNA ([facility]) Name Value Range Interpretation Code Description Data Luli rce(s) Supporting Document(s) Hemoglobin A1c/Hemoglobin.total in Blood 9.8 % Abnormal (applies to non- numeric results) Hba1C [facility]IC ([facility]) ID Date Data Source [id number] 06/17/2020 12:19:00 PM EST [facility]) Name Value Range Interpretation Code Description Data Luli rce(s) Supporting Document(s) Hemoglobin A1c/Hemoglobin.total in Blood 9.8 % Abnormal (applies to non- numeric results) Hba1C DANNA ([facility]) ID Date Data Source [id number] 06/17/2020 12:19:00 PM EST [facility]) Name Value Range Interpretation Code Description Data Luli rce(s) Supporting Document(s) Hemoglobin A1c/Hemoglobin.total in Blood 9.8 % Abnormal (applies to non- numeric results) Hba1C DANNA ([facility]) ID Date Data Source [id number] 06/17/2020 12:19:00 PM EST [facility]) Name Value Range Interpretation Code Description Data Luli rce(s) Supporting Document(s) Hemoglobin A1c/Hemoglobin.total in Blood 9.8 % Abnormal (applies to non- numeric results) Hba1C DANNA ([facility]) ID Date Data Source [id number] 06/17/2020 12:19:00 PM EST DANNA ([facility]) Name Value Range Interpretation Code Description Data Luli rce(s) Supporting Document(s) Hemoglobin A1c/Hemoglobin.total in Blood 9.8 % Abnormal (applies to non- numeric results) Hba1C DANNA ([facility]) ID Date Data Source [id number] 06/17/2020 12:19:00 PM EST DANNA ([facility]) Name Value Range Interpretation Code Description Data Luli rce(s) Supporting Document(s) Hemoglobin A1c/Hemoglobin.total in Blood 9.8 % Abnormal (applies to non- numeric results) Hba1C DANNA ([facility]) ID Date Data Source [id number] 06/17/2020 12:19:00 PM EST DANNA ([facility]) Name Value Range Interpretation Code Description Data Luli rce(s) Supporting Document(s) Hemoglobin A1c/Hemoglobin.total in Blood 9.8 % Abnormal (applies to non- numeric results) Hba1C DANNA ([facility]) ID Date Data Source [id number] 06/17[facility]2020 [facility] Value [facility] Interpretation Code Description Data Luli rce(s) Supporting Document(s) Hemoglobin A1c/Hemoglobin.total in Blood 9.8 % Abnormal (applies to non- numeric results) Hba1C DANNA ([facility]) ID Date Data Source [id number] 06/17/2020 12:19[facility] Name Value Range Interpretation Code Description Data Luli rce(s) Supporting Document(s) Hemoglobin A1c/Hemoglobin.total in Blood 9.8 % Abnormal (applies to non- numeric results) Hba1C DANNA ([facility]) ID Date Data Source [id number] 06/17/2020 12:19:00 PM EST DANNA ([facility]) Name Value Range Interpretation Code Description Data Luli rce(s) Supporting Document(s) Hemoglobin A1c/Hemoglobin.total in Blood 9.8 % Abnormal (applies to non- numeric results) Hba1C DANNA ([facility]) ID Date Data Source [id number] 05/25/2020 12:00:00 AM EST [facility] Name Value Range Interpretation Code Description Data Luli rce(s) Supporting Document(s) SARS coronavirus 2 RNA [Presence] in Res piratory specimen by JUAN with probe detection NEGATIVE [facility] This lab was ordered by Jose Perez and reported by [employer]. ID Date Data Source [id number] 05/25/2020 12:00:00 AM EST [facility] Name Value Range Interpretation Code Description Data Luli rce(s) Supporting Document(s) Carest[facility] Rapid [facility] Antigen Test [facility] This lab was reported by Jose lamar. ID Date Data Source [id number] 02/11/2020 05:37:52 PM EDT [facility] Measurements & CalculationsHeight: 64 inches (5 ft. 4 in.) 162.56 cm Weight Management Education Done (Nutrition/Physical Activity)Vital SignsTemperature: 98.9FPulse Rate: 84 beats/minuteRespiratory Rate: 16 respirations/minuteBlood Pressure: 128/83 O2 Saturation: 95% Vital Signs performed by: Thais Friedman LPN, February 11, 2020 5:38 PMVital Signs performed by: Thais Friedman LPN, February 11, 2020 5:38 PMInitial Intake Information From: patientRoom #: 8Infectious Disease / Travel ScreeningRecent travel for you or any close contacts? NoHave you had any close contact with anyone diagnosed with or under investigation for COVID-19 (coronavirus)? NoFever? NoRespiratory symptoms: cough, cold, congestion, shortness of breath, difficulty breathing? NoLoss of smell? NoLoss of taste? NoSmoking, Tobacco, Vaping or Smoke Exposure StatusSmoke Status: never smokerTobacco Use: NoDo you vape? NoPassive Smoke Exposure: NoMenstrual HistoryAny possibility of ? NoComments: MenopauseHealthcare HistorySince your last office visit...Have you been admitted to the hospital? NoHave you seen another healthcare provider? Yes - Cardiology,[facility]Have you seen a dentist? Yes - [facility]HIntake performed by: Thais Friedman LPN, February 11, 2020 5:40 PMRate Your HealthIn general, would you say your health is? FairPain AssessmentAre you currently having any pain which... You would like your provider to address? No Affects your activity level? NoDepression Screening - PHQ-2Over the last two weeks, have you... Had little interest or pleasure in doing things? Not at all Been feeling down, depressed, or hopeless? Not at all PHQ-2 Score: 0Anxiety Screening - JOSE LUIS-2Over the last two weeks, have you been... Feeling nervous, anxious, or on edge? Not at all Unable to stop or control worrying? Not at all JOSE LUIS-2 Score: 0Food InsecurityWithin the past year...Did you worry whether your food would run out before you got money to buy more? Never trueWas there a time when the food you bought didn't last and you didn't have money to get more? Never trueScreening, Brief Intervention, & Referral to Treatment (SBIRT)Pre-Screening Questions How many times have you have 4 or more drinks in a day? 0How many times have you used an illegal drug or used a prescription medication for a non-medical reason? 0Performed by: Thais Friedman LPN, February 11, 2020 5:43 PMPatient History Medical History:AnginaTremorsDiabetes - type IIHeadacheOccipital NeuralgiaDepressionFainting spellsDizzy spellsMemory lossFatiguesleep apnea - cpap machineSurgical History:Stents in heart g5Wewoteqlhsh TonsillectomyCesarean section x3Left temporal arterial biopsyAppendectomymeniscus repairBilateral knee surgery (not total)Cardiac stent placement x2 Feb 2019heart cath 2019Family History:Diabetes (Mother)Heart disease (Mother)FH- DiabetesFather- CASocial/Personal History: Chief Complaintfollow-up visit lab results room 8History of Present Illness (HPI)59 YO female here for follow up on labs ,request flu vaccine this visit.Pt would like to have form filled out for home [employer] servises. 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 Pt states taking medications as prescribed. Pt states healthy diet and physical activities. Pt states had recent telmedicine visit with the [facility]. HPI performed by: Xiao SILVESTRE, February 11, 2020 6:37 PMTransi tions of Care InboundProblem ReviewProblem List was reviewed and/or updated during this visit.Medication Reconciliation & ReviewMedication List was reviewed and/or updated during this visit, including review of any psxm-blh-lvhcsxs medications, herbal therapies, and/or supplements.Allergy ReviewAllergy List was reviewed and/or updated during this visit.Adult Preventive CareProvider Calculated and Reviewed all Clinical Protocols for patient today. Labs/Meds/Other Counseling-Nutrition and Physical Activity:BMI Interpretation: Morbidly Obese (10/13/2019) Counseling: Done (02/11/2020) Physical Activity: Done (02/11/2020)Cancer Screening Pap Smear/HPV TestingReviewed: Previous Comments: Pt would like to have this done. (06/30/2019)Today's Comments: will reschedule with woman to womanReview of Systems General: Denies loss of appetite, chills, dizziness, fatigue, fever, continued fever, headache, feeling ill, sweats, night sweats, sleep disturbances, weight loss. Eyes: Denies blurring of vision, double vision, irritation, discharge, vision loss, eye pain, eye swelling, droopy eyelid, sensitivity to light, redness, itching. Ears/Nose/Throat: Denies earache, ear discharge, ringing in ears, decreased hearing, nasal congestion, nosebleeds, runny nose, sore throat, hoarseness, difficulty swallowing, dry mouth, tooth pain, bleeding gums, swollen glands. Cardiovascular: Denies chest pain, palpitations, feeling faint, trouble breathing w/exertion, SOB upon lying down, SOB at night, peripheral edema, elevated blood pressure, decreased heart rate. Respiratory: Denies cough, difficulty breathing, shortness of breath, excessive sputum, coughing up blood, wheezing, chest pain. Gastrointestinal: Denies nausea, vomiting, bleeding, burning, itching, irritation, cramps, diarrhea, constipation. Genitourinary: Denies urinary incontinence, pain with urination, burning with urination, urinary frequency, urinary hesitancy, urinary urgency, urinary urgency at night, incomplete emptying, blood in urine. Musculoskeletal: Complains of joint pain. Denies back pain, leg pain, other pain-see comments, joint swelling, body aches, muscle aches, muscle cramps, muscle weakness, stiffness, recent injury. right hand painSkin: Denies rash, hives, redness, itching, dryness, nail changes, suspicious lesions, athlete's foot, rash on palms, rash on bottom of feet. Neurologic: Denies muscle impairment, weakness, numbness/tingling, seizures, slurred speech, feeling faint, tremors, vertigo, paralysis on one side, paralysis on both sides. Psychiatric: Denies depression, anxiety, memory loss, mental disturbance, suicidal ideation, homicidal ideation, hallucinations, paranoia, feeling stressed, hearing voices. Endocrine: Denies cold intolerance, heat intolerance, excessive thirst, excessive hunger, excessive urination, weight loss, weight gain. Physical ExamGeneral Appearance: well nourished, well hydrated, no acute distressEyes, External: conjunctivae and lids normal, EOMIRespiratory, Auscultation: clear to auscultation bilaterally; no rales, rhonchi, or wheezesRespiratory, Effort: no intercostal retractions or use of accessory musclesCardiovascular, Auscultation: S1, S2 audible; no murmur, rub, or gallop; RRRPeripheral Circulation: no clubbing, cyanosis, edema, or varicositiesAbdomen: soft, non-tender, no masses, bowel sounds normalGait & Station: normalSkin, Inspection: no rashes, lesions, or ulcerationsOrientation: oriented to time, place, and personMood & Affect: no depression, anxiety, or agitationJudgment & Insight: intactCare Management Plan Transitions of CareInboundRate Your HealthIn general, would you say your health is? FairAssessment & Plan Problems:Added: Needs influenza immunization (ICD-V04.81) (GIY73-I89.3) Assessment: Instructions: you have had your flu vaccine done today. There may be soreness at the injection site. 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 Please try to avoid streneous activities.Encounters for other specified administrative purpose (ICD-V68.89) (CYY30-L84.89) Assessment: Instructions: will compleate form for home health care service. will contact you when form is completed.Assessed:Type 2 diabetes mellitus with hyperglycemia (ICD-250.80) (HRL82-R02.65) Assessment: Instructions: Your HGA1c is 9.0. trending down. Due to decreased kidney function with GFR 34.3, please decrease metformin to 500 mg once daily. Please increase your long acting insulin Toujeo to 80 units once daily. please continue sliding scale insulin and Jardiance 10 mg daily.Please continue to monitor blood sugar 4-6 times daily. please bring log to your next appointment.Please continue diebetic diet. please limit sugars and carbohydrates.Person consulting for explanation of examination or test findings (ICD-V65.8) (QHO33-L07.2) Assessment: Instructions: Lab results reviewed with you today. Please continue medications as prescribed. Please continue healthy diet and physical activities.Chronic kidney disease, stage 3 (moderate) (ICD-585.3) (XZQ65-D64.3) Assessment: Instructions: Please avoid Nsaids such as aleve, ibuprofen and motrin. Please keep your appointments with your director of health education as scheduled.Please try to maintain adequate intake of water daily.Patient Instructions/Care Plan: Type 2 diabetes mellitus with hyperglycemia: Your HGA1c is 9.0. trending down. Due to decreased kidney function with GFR 34.3, please decrease metformin to 500 mg once daily. Please increase your long acting insulin Toujeo to 80 units once daily. please continue sliding scale insulin and Jardiance 10 mg daily.Please continue to monitor blood sugar 4-6 times daily. please bring log to your next appointment.Please continue diebetic diet. please limit sugars and carbohydrates.Person consulting for explanation of examination or test findings: Lab results reviewed with you today. Please continue medications as prescribed. Please continue healthy diet and physical activities.Chronic kidney disease- stage 3 (moderate): Please avoid Nsaids such as aleve, ibuprofen and motrin. Please keep your appointments with your director of health education as scheduled.Please try to maintain adequate intake of water daily.Needs influenza immunization: you have had your flu vaccine done today. There may be soreness at the injection site. Please report any adverse reactions.Arthritis of wrist: May take Tylenol as needed for pain. Please try to avoid streneous activities.Encounters for other specified administrative purpose: will compleate form for home health care service. will contact you when form is completed. Plan developed in collaboration with patient and/or familyMedications:METOPROLOL TARTRATE 50 MG ORAL TABLETMETFORMIN HCL 500 MG/5ML ORAL SOLUTIONMAGNESIUM OXIDE -MG SUPPLEMENT 400 MG ORAL CAPSULEATORVASTATIN CALCIUM 80 MG ORAL TABLETZONISAMIDE 100 MG ORAL CAPSULENITROSTAT 0.4 MG SUBLINGUAL TABLET SUBLINGUALNAPROXEN 500 MG ORAL TABLETMULTIVITAMIN ORAL TABLETLISINOPRIL 10 MG ORAL TABLETDONEPEZIL HCL 10 MG ORAL TABLETCETIRIZINE HCL 10 MG ORAL TABLETNEOMYCIN-BACITRACIN ZN-POLYMYX OINTMENTTRU-FIT RIGHT WRIST SPLINTASPIRIN EC 81 MG ORAL TABLET DELAYED RELEASEP LAVIX 75 MG ORAL TABLETVITAMIN D-3 25 MCG (1000 UT) ORAL CAPSULEJARDIANCE 10 MG ORAL TABLETEFFEXOR XR 75 MG ORAL CAPSULE EXTENDED RELEASE 24 HOURTRANSFER TUB BEDARTHRITIS TYLENOLHUMALOG 100 UNIT/ML SUBCUTANEOUS SOLUTIONEFFEXOR XR 150 MG ORAL CAPSULE EXTENDED RELEASE 24 HOURGABAPENTIN 300 MG ORAL CAPSULEBD INSULIN SYRINGE MICROFINE 28G X 1/2" 1 MLTOUJEO SOLOSTAR 300 UNIT/ML SUBCUTANEOUS SOLUTION PEN-INJECTORMedication Changes:Changed:From: ORAL METFORMIN HCL 500 MG/5ML ORAL SOLUTION Qty: [id number] To: METFORMIN HCL 500 MG/5ML ORAL SOLUTION-take one tablet by mouth daily To: TOUJEO SOLOSTAR 300 UNIT/ML SUBCUTANEOUS SOLUTION PWX-MSUCVMPN-72 units SQ every eveningAllergies:No Known Allergies (updated 01/01/2019) Orders:COMP METABOLIC PANEL [CPT-04399] CBC W/DIFF [CPT-13407] HgBA1c [CPT-39520] LIPID PANEL [CPT-58627] URINALYSIS [CPT- 39406] Urine Culture [CPT-89305] Administration of Influenza Virus Vaccine [CPT- G0008] FluLaval Quadrivalent, preservative free [CPT-12079] 55121 - Immo Admin ( over 19 yrs), 1st Vaccine [CPT-70808] Adult - Ofc Vst, EST, Level IV [CPT-04123] Follow-Up Return to clinic: 3 months for follow up. Clinical Visit Summary CompletedAdult Questionnaire1) Does the patient have a long-term health problem with heart disease, lung disease, asthma, kidney disease, metabolic disease (e.g., diabetes), anemia, or other blood disorder? No2) Does the patient have allergies to medications, food, a vaccine component, or latex? No3) Does the patient have cancer, leukemia, AIDS, or any other immune system problem? No4) Does the patient live with or expect to have close contact with a person whose immune system is severely compromised and who must be in protective isolation (e.g., an isolation room of a bone marrow transplant unit)? No5) Does the patient take cortisone, prednisone, other steroids, or anticancer drugs, or has the patient had radiation treatments? No6) During the past year, has the patient received a transfusion of blood or blood products, or been given immune (gamma) globulin or an antiviral drug? No7) For women: Is the patient or is there a chance she could become during the next month? No8) Has the patient ever had a serious reaction to a vaccine in the past? No9) Has the patient had a seizure or a brain or other nervous system problem? No10) Has the patient received any vaccinations in the past 4 weeks? No11) Is the patient o lder than age 49 years? Yes12) Is the patient sick today? No13) Vaccine information given and explained to patient? YesVaccines Administered/Entered:Vaccination Group: InfluenzaSeries: 2Vaccination: Flulaval Quadrivalent Intramuscular Suspension Prefilled Syringe 0.5 MLMfr / Lot# / Exp.Date: [employer] / [id number] 1Amt. Given / Route / Site: 0.5 mL / IM / Left DeltoidNDC / CVX: [id number] / 150Administered Date: 02/11/2020 18:43VFC Eligibility: Not VFC EligibleVIS Date: 2018VIS Given / VIS Given On: Yes / 02/11/2020Comments: Administered by: Thais Friedman LPN Name Value Range Interpretation Code Description Data Luli rce(s) Supporting Document(s) ID Date Data Source [id number] 02/04/2020 03:39:43 PM [facility] Name Value Range Interpretation Code Description Data Luli rce(s) Supporting Document(s) Progress Note [facility] KLXEOj8hQjYKFyEa96/GJJmrVIOfg2EpQSqqFPi9HKhaQBGvA0IwMAV6aX4cSCM3NCyREaZxSoJdVQE7 lbm PpMqxBWxBmKRXiVswSWzLfDLevGdwvkYNmKH8SjNZ1HGKlO49qOOUfEIYuT6DcLAA7NnA+Pe5FOJChyT DcLD0YMtcX9I9lHkSVPX2MhX/ZMmWYXAwo0gaGUQZHLFmYu1ClI5FtDfBZ2EwpJReZEi97ydM8EiDSq7 saELpyP8Hqgniped8ZJ4J2QYgr//6M8fnoMXww7t/4 0KsZmp2qJ/9JlbfZVnFb+XMeXE7cuNNq8kxfq1l8/VB6wgr3FLFDNHAe8hx7RsFjtU5wdsu5avhgLQa3 Dni5sBGcTvZa09KeJYiU4kxyt2FpluenVUqHjNCSXfg6gyXoP07i1ybK6un591vYMD/MkBkDlG92K9+l xlKjPWlQgn4C2mYZ6WFz4p9t7RjfXQNiMLNP9lWFwn 5t+rR5+W9oz4wbU1AWSS0XRTdRSJ/eUudjaoK62EI0dLSv9HsQhTC2VwvlmeFae1iDi7Qbi5l5U6aoTC [place]/fMbypGgEC7Y4f+jFtK+/BIky7PGUfKFYK0CsXSOykN7Pgi4zq/HeG0ZakIsIP9Rbicx8Hfz/0rY [file] AgICAgICAgICAgICAgICAgICAgICAgICAgICAgICAgICAgICAgICAgICAgICAgICAgICAgICAgICAgIC AgICAgICAgICAgICAgICAgICAgICAgICAgICAgICAg ICANCiAgICAgICAgICAgICAgICAgICAgICAgICAgICAgICAgICAgICAgICAgICAgICAgICAgICAgICAg ICAgICAgICAgICAgICAgICAgICAgICAgICAgICAgICAgICAgICAgICAgICANCiAgICAgICAgICAgICAg ICAgICAgICAgICAgICAgICAgICAgICAgICAgICAgIC AgICAgICAgICAgICAgICAgICAgICAgICAgICAgICAgICAgICAgICAgICAgICAgICAgICAgICANCiAgIC AgICAgICAgICAgICAgICAgICAgICAgICAgICAgICAgICAgICAgICAgICAgICAgICAgICAgICAgICAgIC AgICAgICAgICAgICAgICAgICAgICAgICAgICAgICAg ICAgICANCiAgICAgICAgICAgICAgICAgICAgICAgICAgICAgICAgICAgICAgICAgICAgICAgICAgICAg ICAgICAgICAgICAgICAgICAgICAgICAgICAgICAgICAgICAgICAgICAgICAgICANCiAgICAgICAgICAg ICAgICAgICAgICAgICAgICAgICAgICAgICAgICAgIC AgICAgICAgICAgICAgICAgICAgICAgICAgICAgICAgICAgICAgICAgICAgICAgICAgICAgICAgICANCi AgICAgICAgICAgICAgICAgICAgICAgICAgICAgICAgICAgICAgICAgICAgICAgICAgICAgICAgICAgIC AgICAgICAgICAgICAgICAgICAgICAgICAgICAgICAg ICAgICAgICANCiAgICAgICAgICAgICAgICAgICAgICAgICAgICAgICAgICAgICAgICAgICAgICAgICAg ICAgICAgICAgICAgICAgICAgICAgICAgICAgICAgICAgICAgICAgICAgICAgICAgICANCiAgICAgICAg ICAgICAgICAgICAgICAgICAgICAgICAgICAgICAgIC AgICAgICAgICAgICAgICAgICAgICAgICAgICAgICAgICAgICAgICAgICAgICAgICAgICAgICAgICAgIC ANCiAgICAgICAgICAgICAgICAgICAgICAgICAgICAgICAgICAgICAgICAgICAgICAgICAgICAgICAgIC AgICAgICAgICAgICAgICAgICAgICAgICAgICAgICAg ICAgICAgICAgICANCjw/nTIhU4cmpFNdlfX8N1hcHz2LRv5BRN1me3FaBSNwCVpuzaFjIdwMHsGyBQPg EtlWOvp5UMtwIX7SyLKlY8GpP1EfODjtYN3RHLPnLOUrzNPwYKBcEPKdWaV8OUKlIDvwLD0FmYQeCHzs NSAwIFIgNyAwIFIgOSAwIFIgMTEgMCBSIDEzIDAgUi GfSTTeZMAyYTpbLFYWQCW8EYCwFzPxPEPfIMPyJL5KCBEyQ584czJrCF0SUn6AQmYcHQ2klk8HLznpHG KgErmAUum9AJcgPA4LhDXahEPzUREoBQFVIaUmZ3vtp4YdCzqzZRVERYpeAX2Qs9LpcCGzOJn+Pg0KZW 5lh1HlLSggQWXmCZ5ukv6TXEtTCrMpL0ToqBdtXXAx q2xeRHGeYD3qoJYhSSG7DO5cZ4eoFFVKcTByTRBRDoYRRSNpqIZfZT73RwPvJzWrYEr5LcRuIL1hAVay YU4BFQZ0BIilMICnZMDhM3wYIfYkUWEyHTVxgNmqRM6QHeUeV7RmyaPyjSLqYAYaLERHMj1+DQplbmRv OlbCCsAlUFEvs1SgDCt9TS4JDDCgEWjcEK2ZYOXnnQ 3hULnqYS0SUpIwZpWkVVJYMkDvJ45blHQmRIv5S1SdWrUrDQKcAkdtYOPtUVpsCnExNYSnHqLtSIsqRT 4+ID4+VDgaBN4DRAqmleGtPHHuJj9AEOJyUPCzNE5rWKMeJEThL5R8hWccKANLHdUzY0oiulbsPY3tBE LfX214bAjehaWcEDP1WINnDa4YMKLdFHV1DUBrxHFz JtcdMEFBUKiuEA5BbZIjSFQ8iU3nJIegJJHqBUMmA2tLNjVqbJnpIX28pXesgyAniXSfNKz+Bd3WNJ6t p5FhURl4riDzNCjnBVSyZVcdOVYsHOTtBDZfSRP8RWQ1ZWJMNkGlAEPkSSJgYOqdKGBcWHJqzb1ABGCo FFJ9SXx1RYZaVREpZEOxJVujUWDiWRR7VmD8GYFpSP YwPT5GPnFvVFAxODMsUZlwMITwJFFfih8MPZVgRVGuPsq6YDJsVTHgMKVaGXzlFQMeRTNxFVL2RRFkIP ZeXB3RDkVrYVEgQYt2LYPzNFRuMIIeuu9JKGBwTWIcQrkxVHAiWHFuXXXvFNziCORiJGIyLZb9VCEfWE VcQX1RDjJuDACoZCS3SNugGGQrSXPjhu1KABOxBCXc IMFlBFNlFXShDUXlUHqbZNXcRSK2FfBmNARnYHIvPP1EGaJkLDEaQWb9TTviWRMzZGSinh9RUMLsTVJw Lww6ZVIzDAFrHADgDMymAHYeQTW4OWDzHTLpUUDbEZ2PZvUwDVKiPFr1YIUjVVUvDUOqla0ZEKVcRSPs NrlmTcKpBBNjIXJyHJzcYKYnKOUnXXO3PFQqDEWfRY 2GCsMdPGByMzakYATjYLWhZNKzpg3RPERvLTLcMXUcZSBvQQTqIUGqXDgkMRIiGAE7WeF7XWDlAOAdMQ 4IViUmHCEyAry0XUXfKXBwEYIrsz5KKOZhDZLqLJF9KJWfASVrKZQsMSguBJXcDUMwFtM1BMVqFQDrKJ 5JTrKaKGJhKgC1OOCmEKNaUJYirb6KHYDvONOpTBxd WUXvRKGgOALkYOmcTDQjYDOuEQPwYKHqFVFzKJ1DIqUcVDDvBeWwBJjrZJPtRJMwvf1FYUYgAUS5PhEh MTQwXBWuBEGnVBmyGNWrPRCnSZE5DFNgHOVlRF6PReJdEEFdDTTkNqFxBYHjBWVrmw8WWDMqZVA5SPMb TqLlIHCjXOQwXCaeQLJwBSB2YIJ4CCPuAYWiCF4DFa CfVGOaLEB4AAIbUGRkJBTvla3UJISsYAM4CZS5GTQaKQWzINYyUWwkXKRoVLT9GWC1ADVxXDSnIS7JBh KvOEYxOXDdTFTqLUXzPMJuxr6OUCJtVRV9Xfe8FAWcAFAiBFBoOBujOOHwECO2LIN8HDBzQNXoLN9MWz RjITBtGJy7QYnoHPCaWZVeer3ZpWIicNfhky2RLZiP Md8ZvWjkWQLoSPuyMe1fgTK3QVZzFNKBMi5TpoVhYOAbMGUJFUpfOWArLKDxZ3D2MpWlHUT5C1U5RNK0 BPJmTdbwAmKvFUf2KxBfYeQ2HEQdTxGbBzZ8RPOeRGGtSIj4JeWtDOVnWUV6GDyyWzD+EF2dGTt+Pg0K t5XllbU2mvQsMCw1OKL9Sc1QLKQHT8NJAa== ID Date Data Source [id number] 01/28/2020 03:52:33 PM EDT [facility] Current Problems: Teeth extraction (ICD- 525.10) (SQC14-P61.499)Person consulting for explanation of examination or test findings (ICD-V65.8) (ICD10- Z71.2)Obesity, unspecified (BOO12-J30.9)Chronic pancreatitis (ICD-577.1) (ICD10- K86.1)Tenosynovitis of right wrist (XSG49-I10.831)Chronic kidney disease, stage 3 (moderate) (ICD-585.3) (JWU63-C55.3)Carpal tunnel syndrome of right wrist (MBL12-O24.01)Type 2 diabetes mellitus with hyperglycemia (ICD-250.80) (ICD10- E11.65)Type 2 diabetes mellitus with mild nonproliferative diabetic retinopathy without macular edema, bilateral (QIO28-E46.3293)Teeth extraction (ICD-525.10) (TSA95-W65.499)Atherosclerotic heart disease of [place] coronary artery without angina pectoris (RSF35-K58.10)Hyperlipidemia, unspecified (ZRD97-Q38.5)Dental caries (ICD-521.00) (YIX14-M35.9)Constipation, unspecified (MMT75-O95.00)Right upper quadrant pain (ADM73-H58.11)Vaccination (ICD-V05.9) (HWK13-C25)Other infective otitis externa, bilateral (ICD-380.10) (XFI75-C30.393)Pain in left k nee (ICD-719.46) (KJF06-L77.562)Mixed anxiety and depressive disorder (ICD- 300.4) (BDE46-N99.8)Screening for malignant neoplasm of breast (ICD10- Z12.39)Dizziness (ICD-780.4) (MVB45-U27)Cellulitis of unspecified part of limb (QBU66-B29.119)Sinusitis (ICD-473.9) (QAB40-W05.9)Decreased renal function (ICD- 794.4) (DKT65-K70.4)Cognitive impairment, mild, so stated (ICD-348.3) (ICD10- G31.84)General Adult Medical Exam WITH Abnormal Findings (over 18) (ICD-V70.0) (ZCO60-J78.01)Essential tremor (ICD-333.1) (WHY00-V69.0)SYNCOPE (ICD-780.2) (OBN58-W64)HEADACHE (ICD-784.0) (NSH09-Z78)Fatigue (ICD-780.79) (ICD10- R53.83)Angina (ICD-413.9) (BBP67-I31.9)Memory loss (ICD-780.93) (ICD10- R41.3)Preventative health care (ICD-V70.0) (SKX80-S56.00)Current Medications: METOPROLOL TARTRATE 50 MG ORAL TABLET (METOPROLOL TARTRATE) Take one tablet PO BID; Route: ORALMETFORMIN HCL 500 MG/5ML ORAL SOLUTION (METFORMIN HCL) Take two tablets twice a day; Route: ORALMAGNESIUM OXIDE -MG SUPPLEMENT 400 MG ORAL CAPSULE (MAGNESIUM OXIDE) Take one tablet twice a day; Route: ORALATORVASTATIN CALCIUM 80 MG ORAL TABLET (ATORVASTATIN CALCIUM) Take one tablet daily; Route: ORALZONISAMIDE 100 MG ORAL CAPSULE (ZONISAMIDE) Take 200 mg BID; Route: ORALNITROSTAT 0.4 MG SUBLINGUAL TABLET SUBLINGUAL (NITROGLYCERIN) Take one every 5 minutes as needed for chest pain; Route: SUBLINGUALNAPROXEN 500 MG ORAL TABLET (NAPROXEN) Take one tablet BID with meals; Route: ORALMULTIVITAMIN ORAL TABLET (MULTIPLE VITAMIN) One tablet daily; Route: ORALLISINOPRIL 10 MG ORAL TABLET (LISINOPRIL) One tablet each day; Route: ORALDONEPEZIL HCL 10 MG ORAL TABLET ( DONEPEZIL HCL) One tablet at bedtime; Route: ORALCETIRIZINE HCL 10 MG ORAL TABLET (CETIRIZINE HCL) One tablet po daily; Route: ORALNEOMYCIN-BACITRACIN ZN- POLYMYX OINTMENT (NEOMYCIN-BACITRACIN ZN-POLYMYX OINT) left eye every 6 hours for 10 days; Route: OPHTHALMICTRU-FIT RIGHT WRIST SPLINT (ELASTIC BANDAGES & SUPPORTS) Apply to right wrist and wear every day and remove at night.DX: G56.01ASPIRIN EC 81 MG ORAL TABLET DELAYED RELEASE (ASPIRIN) once per day; Route: ORALPLAVIX 75 MG ORAL TABLET (CLOPIDOGREL BISULFATE) once per day; Route: ORALVITAMIN D-3 25 MCG (1000 UT) ORAL CAPSULE (CHOLECALCIFEROL) Take one daily; Route: ORALJARDIANCE 10 MG ORAL TABLET (EMPAGLIFLOZIN) take one po daily; Route: ORALEFFEXOR XR 75 MG ORAL CAPSULE EXTENDED RELEASE 24 HOUR (VENLAFAXINE HCL) One tablet by mouth every day (take with 150mg tablet); Route: ORAL* TRANSFER TUB BED Use as directed. For chronic leg pain and weakness.* ARTHRITIS TYLENOL 2-4 tablets a dayHUMALOG 100 UNIT/ML SUBCUTANEOUS SOLUTION (INSULIN LISPRO (HUMAN)) Glucose check 70-90: 6u, 91-130: 10u, 131-150: 12u 151-200: 14U, 201-250: 16u, 251-300: 18u, 301-350: 20u, 351-400: 22u, 401-500: 24u, over 450: 26uEFFEXOR XR 150 MG ORAL CAPSULE EXTENDED RELEASE 24 HOUR (VENLAFAXINE HCL) One tablet by mouth every day (take with 75 mg tablet); Route: ORALGABAPENTIN 300 MG ORAL CAPSULE (GABAPENTIN) 1 tablet PO every 8 hours; Route: ORALBD INSULIN SYRINGE M ICROFINE 28G X 1/2" 1 ML (INSULIN SYRINGE-NEEDLE U-100) 1 syringe with each insulin injection [id number] SOLOSTAR 300 UNIT/ML SUBCUTANEOUS SOLUTION PEN- INJECTOR (INSULIN GLARGINE) 70 units SQ every evening Dental Chart: Procedures:Type - CDT Code - Description B - (D0220) Intraoral, periapical, first radiographic image on Tooth # 2 (Performed by Patrizia Mosher DMD) B - (D0140) Limited oral evaluation - problem focused on Tooth # 2 (Performed by Patrizia Mosher DMD) Treatments:Type - CDT Code - Description T - (D7140) Extraction, erupted tooth or exposed root (elevation and/or forceps removal) on Tooth # 1 (Performed by Patrizia Mosher DMD) Existing:Type - CDT Code - Description[E] Missing - [place] and Root On #15 Surface O Region XR Chart Alert:[facility] pre auth needed for perio with charting and fmx Perio approved for root planning authorization expires 04/05/2016perio maintenance approved expires 10/24/2016Prophy 1 per 6 month periodnext avail perio maintenance s cheduled 10/19/2016Exam 1 per 6 month periodnext avail scheduled 10/19/2016Fl2 1 per 6 month periodthrough age 21next availBwx 4 films per 6 month periodnext avail 10/19/2016Panorex 1 every 3 yearsFMX TAKEN 09/20/2015Sealants every 5 yearsage 5-15 Chart Notes:sil (Jan 28 2020 4:26PM): Additional PPE requirements due to COVID-19 in the dental setting, N95, surgical mask, hair covering, gown and shield.S: CC:"I have pain on the right side when anything hot or cold touches it. It is on the top. It just hurts."O: RMHx (-) Per pt. had another heart attack in October and was airlifted to [facility] and had to remove blockage and clots. HPI: [address]: 8 BP: 124/78 PA taken #2. Taoism #2-O chipped with recession and bone loss present. Sensitivty around #1 to palpation.A: DDS recommends to try Sensodyne toothpaste for sensitivty and OS referral to OS for extraction of #1. Advised pt. that OS may want MED clearance as well. DX:Recession near #2 with sensitivty near #1.P:OS referral. Assisted By:AM NV: P/E MED clearance needed prior to any tx.Patrizia Mosher DMD by sil (01/28/2020 4:26 PM): Tooth Notes and Watches:- Tooth 17 Note: please take panorex, extract 17&32GeBEATRICE simeon Kim by kelvin (09/20/2015 3:22 PM): - Tooth 19 Watch: mesial/distalBEATRICE Lancaster Kim by kelvin (09/20/2015 3:23 PM): - Tooth 28 Watch: distalBEATRICE Lancaster Kim by kelvin (09/20/2015 3:30 PM): Assessment & Plan Problems:Added: Teeth extraction (ICD-525.10) (RYB17-E24.499)Medications:METOPROLOL TARTRATE 50 MG ORAL TABLETMETFORMIN HCL 500 MG/5ML ORAL SOLUTIONMAGNESIUM OXIDE -MG SUPPLEMENT 400 MG ORAL CA PSULEATORVASTATIN CALCIUM 80 MG ORAL TABLETZONISAMIDE 100 MG ORAL CAPSULENITROSTAT 0.4 MG SUBLINGUAL TABLET SUBLINGUALNAPROXEN 500 MG ORAL TABLETMULTIVITAMIN ORAL TABLETLISINOPRIL 10 MG ORAL TABLETDONEPEZIL HCL 10 MG ORAL TABLETCETIRIZINE HCL 10 MG ORAL TABLETNEOMYCIN-BACITRACIN ZN-POLYMYX OINTMENTTRU-FIT RIGHT WRIST SPLINTASPIRIN EC 81 MG ORAL TABLET DELAYED RELEASEPLAVIX 75 MG ORAL TABLETVITAMIN D-3 25 MCG (1000 UT) ORAL CAPSULEJARDIANCE 10 MG ORAL TABLETEFFEXOR XR 75 MG ORAL CAPSULE EXTENDED RELEASE 24 HOURTRANSFER TUB BEDARTHRITIS TYLENOLHUMALOG 100 UNIT/ML SUBCUTANEOUS SOLUTIONEFFEXOR XR 150 MG ORAL CAPSULE EXTENDED RELEASE 24 HOURGABAPENTIN 300 MG ORAL CAPSULEBD INSULIN SYRINGE MICROFINE 28G X 1/2" 1 MLTOUJEO SOLOSTAR 300 UNIT/ML SUBCUTANEOUS SOLUTION PEN-INJECTORAllergies:No Known Allergies (updated 01/01/2019) Orders:Oral Surgery Referral [[id number]] Name Value Range Interpretation Code Description Data Luli rce(s) Supporting Document(s) ID Date Data Source [id number] 01/15/2020 12:51:30 PM [facility] Name Date of Age Gend*PT [id number] Martha Miranda 1960 59 years F ---PT Location Admission Date/Time Visit ID Attending Provider --- --- --- --- EPI ID CSN Admitting Provider [id number] ---Addended by: XAVI PICHARDO on: 01/15/2020 12:51 PM Modules accepted: Orders Name Value Range Interpretation Code Description Data Luli rce(s) Supporting Document(s) Procedure Social History Code Duration Value Status Description Data Source(s ) Alcohol intake 02/01/2021 12:00:00 AM EDT Lifetime non-drinker (finding) completed Lifetime non-drinker (finding) [facility] Alcohol intake 08/19/2020 12:00:00 AM EDT Current non-d danilo of alcohol (finding) completed Current non-drinker of alcohol (finding) [facility] Tobacco use and exposure 08/19/2020 12:00:00 AM EDT Never used co mpleted Never used [facility] Smoking 08/19/2020 12:00:00 AM EDT Former smoker completed Former smoker [facility] Alcohol intake 07/13/2020 12:00:00 AM EDT Never completed [facility] Smoking 07/13/2020 12:00:00 AM EDT Never smoker completed Never s moker [facility] Alcohol intake 07/08/2020 12:00:00 AM EST Never completed [facility] Smoking 07/08/2020 12:00:00 AM EST Never smoker completed Never s moker [facility] Alcohol intake 06/29/2020 12:00:00 AM EST Never completed [facility] Smoking 06/29/2020 12:00:00 AM EST Never smoker completed Never s moker [facility] Smoking 03/29/2020 12:00:00 AM EST Patient is a former smoker completed Patient is a former smoker [facility]) Alcohol intake 02/02/2020 12:00:00 AM EDT Current non-d danilo of alcohol (finding) completed Current non-drinker of alcohol (finding) [facility] Vital Signs ID Date Data Source UNK Name Value Range Interpretation Code Description Data Source(s) Body height 64 [in_i] 64 [in_i] [facility], ) 5'4" Body weight 246.00 [lb_av] 246.00 [lb_av] [facility] ([facility], ) Body weight 111.586 kg 111.586 kg [facility] ([facility]) Body mass index (BMI) [Ratio] 42.2 kg/m2 42.2 k g/m2 [facility] ([facility]) [place] body weight 120 [lb_av] 120 [lb_av] [facility] ([facility]) Body surface area Derived from formula 2.14 m2 2.14 m2 [facility] ([facility]) Systolic blood pressure 134 mm[Hg] 134 mm[Hg] [facility] Diastolic blood pressure 80 mm[Hg] 80 mm[Hg] [facility] Heart rate 70 /min 70 /min [facility] Body height 162.6 cm 162.6 cm [facility] Body weight 111.131 kg 111.131 kg [facility] Body mass index (BMI) [Ratio] 42.05 kg/m2 42.05 kg/m2 [facility] Oxygen saturation in Arterial blood by Pulse oximetry 99 % 99 % [facility] Diastolic blood pressure 84 mm[Hg] 84 mm[Hg] [facility] ([facility]) Body height 64 [in_i] 64 [in_i] [facility] ([facility]) Body mass index (BMI) [Ratio] 42.2 kg/m2 42.2 k g/m2 [facility] ([facility]) Systolic blood pressure 130 mm[Hg] 130 mm[Hg] A [facility] ([facility]) Body weight 3936 [oz_av] 3936 [oz_av] [facility] ([facility]) Systolic blood pressure 130 mm[Hg] 130 mm[Hg] A [facility] ([facility]) Diastolic blood pressure 84 mm[Hg] 84 mm[Hg] [facility] ([facility]) Body weight 3936 [oz_av] 3936 [oz_av] [facility] ([facility]) Body height 64 [in_i] 64 [in_i] [facility] ([facility]) Body mass index (BMI) [Ratio] 42.2 kg/m2 42.2 k g/m2 [facility] ([facility]) Diastolic blood pressure 84 mm[Hg] 84 mm[Hg] [facility] ([facility]) Body height 64 [in_i] 64 [in_i] [facility] ([facility]) Body mass index (BMI) [Ratio] 42.2 kg/m2 42.2 k g/m2 [facility] ([facility]) Systolic blood pressure 130 mm[Hg] 130 mm[Hg] A [facility] ([facility]) Body weight 3936 [oz_av] 3936 [oz_av] [facility] ([facility]) Diastolic blood pressure 84 mm[Hg] 84 mm[Hg] [facility] ([facility]) Body height 64 [in_i] 64 [in_i] [facility] ([facility]) Body mass index (BMI) [Ratio] 42.2 kg/m2 42.2 k g/m2 [facility] ([facility]) Systolic blood pressure 130 mm[Hg] 130 mm[Hg] Kiara THENA ([facility]) Body weight 3936 [oz_av] 3936 [oz_av] [facility] ([facility]) Body temperature 97.1 [degF] 97.1 [degF] [facility] ([facility] ) Body weight 235.00 [lb_av] 235.00 [lb_av] [facility] T ([facility] ) Body mass index (BMI) [Ratio] 40.3 kg/m2 40.3 k g/m2 [facility] ([facility] ) Body height 64 [in_i] 64 [in_i] [facility] ([facility] ) 5'4" Body height 64 [in_i] 64 [in_i] [facility] ([facility], ) 5'4" [place] body weight 120 [lb_av] 120 [lb_av] [facility] ([facility], ) Body mass index (BMI) [Ratio] 41.9 kg/m2 41.9 k g/m2 [facility] Body surface area Derived from formula 2.13 m2 2.13 m2 [facility] ([facility]) Body weight 244.00 [lb_av] 244.00 [lb_av] [facility] T ([facility]) Body weight 110.678 kg 110.678 kg [facility] ([facility], ) Body height 64 [in_i] 64 [in_i] [facility] ([facility], ) 5'4" Body weight 245.00 [lb_av] 245.00 [lb_av] [facility] T ([facility]) Body mass index (BMI) [Ratio] 42.0 kg/m2 42.0 k g/m2 [facility] ([facility] ) [place] body weight 120 [lb_av] 120 [lb_av] [facility] T ([facility]) Body weight 111.132 kg 111.132 kg [facility] ([facility]) Body surface area Derived from formula 2.13 m2 2.13 m2 [facility] ([facility]) Body weight 245.00 [lb_av] 245.00 [lb_av] [facility] T ([facility]) Body mass index (BMI) [Ratio] 42.0 kg/m2 42.0 k g/m2 [facility] ([facility]) [place] body weight 120 [lb_av] 120 [lb_av] [facility] T ([facility]) Body weight 111.132 kg 111.132 kg [facility] ([facility]) Body surface area Derived from formula 2.13 m2 2.13 m2 [facility] ([facility]) Body height 64 [in_i] 64 [in_i] [facility] ([facility]) 5'4" Body height 64 [in_i] 64 [in_i] [facility] ([facility]) Body height 64 [in_i] 64 [in_i] [facility] ([facility]) Body height 64 [in_i] 64 [in_i] [facility] ([facility]) Body height 64 [in_i] 64 [in_i] [facility] ([facility]) Body height 64 [in_i] 64 [in_i] [facility] ([facility]) Systolic blood pressure 114 mm[Hg] 114 mm[Hg] M [facility] ([facility] Body weight 235.00 [lb_av] 235.00 [lb_av] [facility] T ([facility] Heart rate 58 /min 58 /min [facility] ([facility] Body height 64 [in_i] 64 [in_i] [facility] ([facility] 5'4" Diastolic blood pressure 64 mm[Hg] 64 mm[Hg] [facility] ([facility] Body mass index (BMI) [Ratio] 40.3 kg/m2 40.3 k g/m2 [facility] ([facility] Diastolic blood pressure 82 mm[Hg] 82 mm[Hg] D[facility] ([facility]) Body height 64 [in_i] 64 [in_i] [facility] ([facility]) Body mass index (BMI) [Ratio] 42.7 kg/m2 42.7 k g/m2 [facility] ([facility]) Systolic blood pressure 127 mm[Hg] 127 mm[Hg] [facility] ([facility]) Body weight 3977.6 [oz_av] 3977.6 [oz_av] ATHEN A ([facility]) Diastolic blood pressure 82 mm[Hg] 82 mm[Hg] [facility] ([facility]) Body height 64 [in_i] 64 [in_i] [facility] ([facility]) Body mass index (BMI) [Ratio] 42.7 kg/m2 42.7 k g/m2 [facility] ([facility]) Systolic blood pressure 127 mm[Hg] 127 mm[Hg] A GERALDA ([facility]) Body weight 3977.6 [oz_av] 3977.6 [oz_av] ATHEN A ([facility]) Diastolic blood pressure 82 mm[Hg] 82 mm[Hg] [facility] ([facility]) Body height 64 [in_i] 64 [in_i] [facility] ([facility]) Body mass index (BMI) [Ratio] 42.7 kg/m2 42.7 k g/m2 [facility] ([facility]) Systolic blood pressure 127 mm[Hg] 127 mm[Hg] A THENA ([facility]) Body weight 3977.6 [oz_av] 3977.6 [oz_av] ATHEN A ([facility]) Diastolic blood pressure 82 mm[Hg] 82 mm[Hg] [facility] ([facility]) Body height 64 [in_i] 64 [in_i] [facility] ([facility]) Body mass index (BMI) [Ratio] 42.7 kg/m2 42.7 k g/m2 [facility] ([facility]) Systolic blood pressure 127 mm[Hg] 127 mm[Hg] [facility] ([facility]) Body weight 3977.6 [oz_av] 3977.6 [oz_av] ATHEN A ([facility]) Diastolic blood pressure 82 mm[Hg] 82 mm[Hg] D[facility] ([facility]) Body height 64 [in_i] 64 [in_i] [facility] ([facility]) Body mass index (BMI) [Ratio] 42.7 kg/m2 42.7 k g/m2 [facility] ([facility]) Systolic blood pressure 127 mm[Hg] 127 mm[Hg] [facility] ([facility]) Body weight 3977.6 [oz_av] 3977.6 [oz_av] ATHEN A ([facility]) Diastolic blood pressure 82 mm[Hg] 82 mm[Hg] D[facility] ([facility]) Body height 64 [in_i] 64 [in_i] [facility] ([facility]) Body mass index (BMI) [Ratio] 42.7 kg/m2 42.7 k g/m2 [facility] ([facility]) Systolic blood pressure 127 mm[Hg] 127 mm[Hg] A GER[facility] ([facility]) Body weight 3977.6 [oz_av] 3977.6 [oz_av] ATHEN A ([facility]) Diastolic blood pressure 82 mm[Hg] 82 mm[Hg] [facility] ([facility]) Body height 64 [in_i] 64 [in_i] [facility] ([facility]) Body mass index (BMI) [Ratio] 42.7 kg/m2 42.7 k g/m2 [facility] ([facility]) Systolic blood pressure 120 mm[Hg] 120 mm[Hg] A [facility] ([facility]) Body weight 3984 [oz_av] 3984 [oz_av] DANNA ([facility]) Diastolic blood pressure 82 mm[Hg] 82 mm[Hg] DANNA ([facility]) Body height 64 [in_i] 64 [in_i] DANNA ([facility]) Body mass index (BMI) [Ratio] 42.7 kg/m2 42.7 k g/m2 DANNA ([facility]) Systolic blood pressure 120 mm[Hg] 120 mm[Hg] A GERALDA ([facility]) Body weight 3984 [oz_av] 3984 [oz_av] DANNA ([facility]) Diastolic blood pressure 82 mm[Hg] 82 mm[Hg] DANNA ([facility]) Body height 64 [in_i] 64 [in_i] DANNA ([facility]) Body mass index (BMI) [Ratio] 42.7 kg/m2 42.7 k g/m2 DANNA ([facility]) Systolic blood pressure 120 mm[Hg] 120 mm[Hg] [facility] ([facility]) Body weight 3984 [oz_av] 3984 [oz_av] DANNA ([facility]) Diastolic blood pressure 82 mm[Hg] 82 mm[Hg] DANNA ([facility]) Body height 64 [in_i] 64 [in_i] DANNA ([facility]) Body mass index (BMI) [Ratio] 42.7 kg/m2 42.7 k g/m2 DANNA ([facility]) Systolic blood pressure 120 mm[Hg] 120 mm[Hg] A [facility] ([facility]) Body weight 3984 [oz_av] 3984 [oz_av] DANNA ([facility]) Diastolic blood pressure 82 mm[Hg] 82 mm[Hg] DANNA ([facility]) Body height 64 [in_i] 64 [in_i] DANNA ([facility]) Body mass index (BMI) [Ratio] 42.7 kg/m2 42.7 k g/m2 DANNA ([facility]) Systolic blood pressure 120 mm[Hg] 120 mm[Hg] A [facility] ([facility]) Body weight 3984 [oz_av] 3984 [oz_av] DANNA ([facility]) Diastolic blood pressure 82 mm[Hg] 82 mm[Hg] DANNA ([facility]) Body height 64 [in_i] 64 [in_i] DANNA ([facility]) Body mass index (BMI) [Ratio] 42.7 kg/m2 42.7 k g/m2 DANNA ([facility]) Systolic blood pressure 120 mm[Hg] 120 mm[Hg] Kiara REYNA ([facility]) Body weight 3984 [oz_av] 3984 [oz_av] DANNA ([facility]) Diastolic blood pressure 82 mm[Hg] 82 mm[Hg] DANNA ([facility]) Body height 64 [in_i] 64 [in_i] DANNA ([facility]) Body mass index (BMI) [Ratio] 42.7 kg/m2 42.7 k g/m2 DANNA ([facility]) Systolic blood pressure 120 mm[Hg] 120 mm[Hg] Kiara REYNA ([facility]) Body weight 3984 [oz_av] 3984 [oz_av] DANNA ([facility]) Systolic blood pressure 118 mm[Hg] 118 mm[Hg] [facility] Diastolic blood pressure 78 mm[Hg] 78 mm[Hg] [facility] Heart rate 77 /min 77 /min [facility] Body height 162.6 cm 162.6 cm [facility] Body weight 112.265 kg 112.265 kg [facility] Body mass index (BMI) [Ratio] 42.48 kg/m2 42.48 kg/m2 [facility] Oxygen saturation in Arterial blood by Pulse oximetry 98 % 98 % [facility] Systolic blood pressure 111 mm[Hg] 111 mm[Hg] [facility] Diastolic blood pressure 74 mm[Hg] 74 mm[Hg] [facility] Heart rate 103 /min 103 /min [facility] Body temperature 37 Jacklyn 37 Jacklyn [facility] Respiratory rate 16 /min 16 /min [facility] Oxygen saturation in Arterial blood by Pulse oximetry 95 % 95 % [facility] Body height 162.6 cm 162.6 cm [facility] Body weight 111.4 kg 111.4 kg [facility] Body mass index (BMI) [Ratio] 42.16 kg/m2 42.16 kg/m2 [facility] Systolic blood pressure 125 mm[Hg] 125 mm[Hg] [facility] Diastolic blood pressure 80 mm[Hg] 80 mm[Hg] [facility] Heart rate 76 /min 76 /min [facility] Body height 162.6 cm 162.6 cm [facility] Body weight 113.399 kg 113.399 kg [facility] Body mass index (BMI) [Ratio] 42.91 kg/m2 42.91 kg/m2 [facility] Oxygen saturation in Arterial blood by Pulse oximetry 96 % 96 % [facility] Body height 64 [in_i] 64 [in_i] DANNA ([facility]) Body mass index (BMI) [Ratio] 43.3 kg/m2 43.3 k g/m2 DANNA ([facility]) Systolic blood pressure 145 mm[Hg] 145 mm[Hg] A [facility] ([facility]) Body weight 4035.2 [oz_av] 4035.2 [oz_av] ATHEN A ([facility]) Diastolic blood pressure 86 mm[Hg] 86 mm[Hg] DANNA ([facility]) Diastolic blood pressure 86 mm[Hg] 86 mm[Hg] DANNA ([facility]) Body height 64 [in_i] 64 [in_i] DANNA ([facility]) Body mass index (BMI) [Ratio] 43.3 kg/m2 43.3 k g/m2 DANNA ([facility]) Systolic blood pressure 145 mm[Hg] 145 mm[Hg] A [facility] ([facility]) Body weight 4035.2 [oz_av] 4035.2 [oz_av] ATHEN A ([facility]) Diastolic blood pressure 86 mm[Hg] 86 mm[Hg] DANNA ([facility]) Body height 64 [in_i] 64 [in_i] DANNA ([facility]) Body mass index (BMI) [Ratio] 43.3 kg/m2 43.3 k g/m2 DANNA ([facility]) Systolic blood pressure 145 mm[Hg] 145 mm[Hg] A THENA ([facility]) Body weight 4035.2 [oz_av] 4035.2 [oz_av] ATHEN A ([facility]) Diastolic blood pressure 86 mm[Hg] 86 mm[Hg] DANNA ([facility]) Body height 64 [in_i] 64 [in_i] DANNA ([facility]) Body mass index (BMI) [Ratio] 43.3 kg/m2 43.3 k g/m2 DANNA ([facility]) Systolic blood pressure 145 mm[Hg] 145 mm[Hg] A GERALDA ([facility]) Body weight 4035.2 [oz_av] 4035.2 [oz_av] ATHEN A ([facility]) Diastolic blood pressure 86 mm[Hg] 86 mm[Hg] DANNA ([facility]) Body height 64 [in_i] 64 [in_i] DANNA ([facility]) Body mass index (BMI) [Ratio] 43.3 kg/m2 43.3 k g/m2 DANNA ([facility]) Systolic blood pressure 145 mm[Hg] 145 mm[Hg] A GERALDA ([facility]) Body weight 4035.2 [oz_av] 4035.2 [oz_av] ATHEN A ([facility]) Diastolic blood pressure 86 mm[Hg] 86 mm[Hg] DANNA ([facility]) Body height 64 [in_i] 64 [in_i] DANNA ([facility]) Body mass index (BMI) [Ratio] 43.3 kg/m2 43.3 k g/m2 DANNA ([facility]) Systolic blood pressure 145 mm[Hg] 145 mm[Hg] A THENA ([facility]) Body weight 4035.2 [oz_av] 4035.2 [oz_av] ATHEN A ([facility]) Diastolic blood pressure 86 mm[Hg] 86 mm[Hg] DANNA ([facility]) Body height 64 [in_i] 64 [in_i] DANNA ([facility]) Body mass index (BMI) [Ratio] 43.3 kg/m2 43.3 k g/m2 DANNA ([facility]) Systolic blood pressure 145 mm[Hg] 145 mm[Hg] A THENA ([facility]) Body weight 4035.2 [oz_av] 4035.2 [oz_av] ATHEN A ([facility]) Body weight 4035.2 [oz_av] 4035.2 [oz_av] ATHEN A ([facility]) Diastolic blood pressure 86 mm[Hg] 86 mm[Hg] DANNA ([facility]) Body height 64 [in_i] 64 [in_i] DANNA ([facility]) Body mass index (BMI) [Ratio] 43.3 kg/m2 43.3 k g/m2 DANNA ([facility]) Systolic blood pressure 145 mm[Hg] 145 mm[Hg] A [facility] ([facility]) Diastolic blood pressure 86 mm[Hg] 86 mm[Hg] DANNA ([facility]) Body height 64 [in_i] 64 [in_i] DANNA ([facility]) Body mass index (BMI) [Ratio] 43.3 kg/m2 43.3 k g/m2 DANNA ([facility]) Systolic blood pressure 145 mm[Hg] 145 mm[Hg] A THENA ([facility]) Body weight 4035.2 [oz_av] 4035.2 [oz_av] ATHEN A ([facility]) Diastolic blood pressure 79 mm[Hg] 79 mm[Hg] DANNA ([facility]) Body height 64 [in_i] 64 [in_i] DANNA ([facility]) Body mass index (BMI) [Ratio] 43.3 kg/m2 43.3 k g/m2 DANNA ([facility]) Systolic blood pressure 113 mm[Hg] 113 mm[Hg] A THENA ([facility]) Body weight 4032 [oz_av] 4032 [oz_av] DANNA ([facility]) Diastolic blood pressure 79 mm[Hg] 79 mm[Hg] DANNA ([facility]) Body height 64 [in_i] 64 [in_i] DANNA ([facility]) Body mass index (BMI) [Ratio] 43.3 kg/m2 43.3 k g/m2 DANNA ([facility]) Systolic blood pressure 113 mm[Hg] 113 mm[Hg] A [facility] ([facility]) Body weight 4032 [oz_av] 4032 [oz_av] DANNA ([facility]) Diastolic blood pressure 79 mm[Hg] 79 mm[Hg] DANNA ([facility]) Body height 64 [in_i] 64 [in_i] DANNA ([facility]) Body mass index (BMI) [Ratio] 43.3 kg/m2 43.3 k g/m2 DANNA ([facility]) Systolic blood pressure 113 mm[Hg] 113 mm[Hg] A [facility] ([facility]) Body weight 4032 [oz_av] 4032 [oz_av] DANNA ([facility]) Diastolic blood pressure 79 mm[Hg] 79 mm[Hg] DANNA ([facility]) Body height 64 [in_i] 64 [in_i] DANNA ([facility]) Body mass index (BMI) [Ratio] 43.3 kg/m2 43.3 k g/m2 DANNA ([facility]) Systolic blood pressure 113 mm[Hg] 113 mm[Hg] A [facility] ([facility]) Body weight 4032 [oz_av] 4032 [oz_av] DANNA ([facility]) Diastolic blood pressure 79 mm[Hg] 79 mm[Hg] DANNA ([facility]) Body height 64 [in_i] 64 [in_i] DANNA ([facility]) Body mass index (BMI) [Ratio] 43.3 kg/m2 43.3 k g/m2 DANNA ([facility]) Systolic blood pressure 113 mm[Hg] 113 mm[Hg] A [facility] ([facility]) Body weight 4032 [oz_av] 4032 [oz_av] DANNA ([facility]) Diastolic blood pressure 79 mm[Hg] 79 mm[Hg] DANNA ([facility]) Body height 64 [in_i] 64 [in_i] DANNA ([facility]) Body mass index (BMI) [Ratio] 43.3 kg/m2 43.3 k g/m2 DANNA ([facility]) Systolic blood pressure 113 mm[Hg] 113 mm[Hg] A [facility] ([facility]) Body weight 4032 [oz_av] 4032 [oz_av] DANNA ([facility]) Diastolic blood pressure 79 mm[Hg] 79 mm[Hg] DANNA ([facility]) Body height 64 [in_i] 64 [in_i] DANNA ([facility]) Body mass index (BMI) [Ratio] 43.3 kg/m2 43.3 k g/m2 DANNA ([facility]) Systolic blood pressure 113 mm[Hg] 113 mm[Hg] A [facility] ([facility]) Body weight 4032 [oz_av] 4032 [oz_av] DANNA ([facility]) Diastolic blood pressure 79 mm[Hg] 79 mm[Hg] DANNA ([facility]) Body height 64 [in_i] 64 [in_i] DANNA ([facility]) Body mass index (BMI) [Ratio] 43.3 kg/m2 43.3 k g/m2 DANNA ([facility]) Systolic blood pressure 113 mm[Hg] 113 mm[Hg] A [facility] ([facility]) Body weight 4032 [oz_av] 4032 [oz_av] DANNA ([facility]) Diastolic blood pressure 79 mm[Hg] 79 mm[Hg] DANNA ([facility]) Body height 64 [in_i] 64 [in_i] DANNA ([facility]) Body mass index (BMI) [Ratio] 43.3 kg/m2 43.3 k g/m2 DANNA ([facility]) Systolic blood pressure 113 mm[Hg] 113 mm[Hg] A [facility] ([facility]) Body weight 4032 [oz_av] 4032 [oz_av] DANNA ([facility]) Body mass index (BMI) [Ratio] 43.3 kg/m2 43.3 k g/m2 DANNA ([facility]) Systolic blood pressure 113 mm[Hg] 113 mm[Hg] A THENA ([facility]) Body weight 4032 [oz_av] 4032 [oz_av] DANNA ([facility]) Diastolic blood pressure 79 mm[Hg] 79 mm[Hg] DANNA ([facility]) Body height 64 [in_i] 64 [in_i] DANNA ([facility]) Body temperature 96.2 [degF] 96.2 [degF] MEDENT ([facility]) Body height 62.5 [in_i] 62.5 [in_i] MEDENT ([facility]) 5'2.50" Body weight 248.38 [lb_av] 248.38 [lb_av] MEDEN T ([facility]) Body mass index (BMI) [Ratio] 44.7 kg/m2 44.7 k g/m2 MEDENT ([facility]) Diastolic blood pressure 83 mm[Hg] 83 mm[Hg] DANNA ([facility]) Body height 64 [in_i] 64 [in_i] DANNA ([facility]) Systolic blood pressure 128 mm[Hg] 128 mm[Hg] A THENA ([facility]) Diastolic blood pressure 83 mm[Hg] 83 mm[Hg] DANNA ([facility]) Body height 64 [in_i] 64 [in_i] DANNA ([facility]) Systolic blood pressure 128 mm[Hg] 128 mm[Hg] A THENA ([facility]) Diastolic blood pressure 83 mm[Hg] 83 mm[Hg] DANNA ([facility]) Body height 64 [in_i] 64 [in_i] DANNA ([facility]) Systolic blood pressure 128 mm[Hg] 128 mm[Hg] A THENA ([facility]) Diastolic blood pressure 83 mm[Hg] 83 mm[Hg] DANNA ([facility]) Body height 64 [in_i] 64 [in_i] DANNA ([facility]) Systolic blood pressure 128 mm[Hg] 128 mm[Hg] A THENA ([facility]) Diastolic blood pressure 83 mm[Hg] 83 mm[Hg] DANNA ([facility]) Body height 64 [in_i] 64 [in_i] DANNA ([facility]) Systolic blood pressure 128 mm[Hg] 128 mm[Hg] A [facility] ([facility]) Diastolic blood pressure 83 mm[Hg] 83 mm[Hg] DANNA ([facility]) Body height 64 [in_i] 64 [in_i] DANNA ([facility]) Systolic blood pressure 128 mm[Hg] 128 mm[Hg] A [facility] ([facility]) Diastolic blood pressure 83 mm[Hg] 83 mm[Hg] DANNA ([facility]) Body height 64 [in_i] 64 [in_i] DANNA ([facility]) Systolic blood pressure 128 mm[Hg] 128 mm[Hg] A [facility] ([facility]) Diastolic blood pressure 83 mm[Hg] 83 mm[Hg] DANNA ([facility]) Body height 64 [in_i] 64 [in_i] DANNA ([facility]) Systolic blood pressure 128 mm[Hg] 128 mm[Hg] A [facility] ([facility]) Diastolic blood pressure 83 mm[Hg] 83 mm[Hg] DANNA ([facility]) Body height 64 [in_i] 64 [in_i] DANNA ([facility]) Systolic blood pressure 128 mm[Hg] 128 mm[Hg] A [facility] ([facility]) Diastolic blood pressure 83 mm[Hg] 83 mm[Hg] DANNA ([facility]) Body height 64 [in_i] 64 [in_i] DANNA ([facility]) Systolic blood pressure 128 mm[Hg] 128 mm[Hg] A THENA ([facility]) Patient Treatment Plan of Care Planned Activity Planned Date Details Description Data Source (s) gabapentin 300 MG Oral Capsule 01/22/2021 12:00:00 AM EDT [facility] ezetimibe 10 MG Oral Tablet 01/22/2021 12:00:00 AM EDT [facility] Cholecalciferol 2000 UNT Oral Tablet 01/22/2021 12:00:00 AM EDT [facility] glucose blood (Prodigy No Coding Blood Gluc) test stri p 12/15/2020 12:00:00 AM EDT [facility] Lisinopril 10 MG Oral Tablet 09/07/2020 12:00:00 AM EDT [facility] clopidogrel 75 MG Oral Tablet 09/07/2020 12:00:00 AM EDT [facility] icosapent ethyl 1000 MG Oral Capsule 08/08/2020 12:00:00 AM EDT [facility] Prodigy No Coding Blood Gluc In Vitro Strip (glucose b lood) 08/05/2020 12:00:00 AM [facility] ospital 1.5 ML Insulin Glargine 300 UNT/ML Pen Injector [Touje o] 08/05/2020 12:00:00 AM [facility]spital Insulin, Aspart, Human 100 UNT/ML Injectable Solution 08/05/2020 12:00:00 AM [facility] icosapent ethyl 1000 MG Oral Capsule 07[facility]13[facility] Oral Tablet 07/08/2020 12:00:00 AM [facility] Nitroglycerin 0.4 MG Sublingual Tablet 06/29/2020 12:00:00 AM [facility] cetirizine hydrochloride 10 MG Oral Tablet 06/14/2020 12:00:00 AM E [facility] empagliflozin 10 MG Oral Tablet [Jardiance] 04/11/2020 12:00:00 AM [facility] pantoprazole 40 MG Delayed Release Oral Tablet 04/10/2020 12:00:00 AM [facility] 24 HR Metformin hydrochloride 500 MG Extended Release Oral Tablet 04/08/2020 12:00:00 AM [facility]spital atorvastatin 80 MG Oral Tablet 03/23/2020 12:00:00 AM [facility] pantoprazole 40 MG Delayed Release Oral Tablet 01/18/2020 12:00:00 AM [facility] 1.5 ML Insulin Glargine 300 UNT/ML Pen Injector [Touje o] 01/12/2020 12:00:00 AM [facility] Insulin, Aspart, Human 100 UNT/ML Injectable Solution 01/08/2020 12:00:00 AM [facility] clopidogrel 75 MG Oral Tablet 12/18/2019 12:00:[address] [facility] Glucose Blood In Vitro Strip (Prodigy No Coding Blood Gluc) 10/06/2019 12:00:00 AM [facility] Naproxen 500 MG Oral Tablet [facility]/30[facility] Aspart, Human 100 UNT/ML Injectable Solution 07/13/2019 12:00:00 AM [facility] empagliflozin 10 MG Oral Tablet [Jardiance] 03/18/2019 12:00:00 AM [facility] Nitroglycerin 0.4 MG Sublingual Tablet 03/13/2019 12:00:00 AM [facility] Cholecalciferol 1000 UNT Oral Tablet 02/19[facility] 20 MG Oral Tablet 09/08/2018 12:00:00 AM [facility] gabapentin 100 MG Oral Capsule [facility] 24 HR venlafaxine 37.5 MG Extended Release Oral Capsule DANAN ([facility]) Rosuvastatin calcium 20 MG Oral Tablet DANNA ([facility]) Ondansetron 4 MG Oral Tablet DANNA ([facility]) Nystatin 100 UNT/MG / Triamcinolone Acetonide 0.001 MG/MG Topica l Ointment DANNA ([facility]) Naproxen 500 MG Oral Tablet DANNA ([facility]) Metoprolol Tartrate 25 MG Oral Tablet DANNA ([facility]) Metformin hydrochloride 500 MG Oral Tablet DANNA ([facility]) Acetaminophen 325 MG / Hydrocodone Bitartrate 5 MG Oral Tablet DANNA ([facility]) Cholecalciferol 1000 UNT Oral Tablet DANNA ([facility]) cefdinir 300 MG Oral Capsule DANNA ([facility]) atorvastatin 40 MG Oral Tablet DANNA ([facility]) Amoxicillin 875 MG / Clavulanate 125 MG Oral Tablet DANNA ([facility]) ammonium lactate 120 MG/ML Topical Cream DANNA ([facility]) 24 HR venlafaxine 37.5 MG Extended Release Oral Capsule DANNA ([facility]) Rosuvastatin calcium 20 MG Oral Tablet DANNA ([facility]) Ondansetron 4 MG Oral Tablet DANNA ([facility]) Nystatin 100 UNT/MG / Triamcinolone Acetonide 0.001 MG/MG Topica l Ointment DANNA ([facility]) Naproxen 500 MG Oral Tablet DANNA ([facility]) Metoprolol Tartrate 25 MG Oral Tablet DANNA ([facility]) Metformin hydrochloride 500 MG Oral Tablet DANNA ([facility]) Acetaminophen 325 MG / Hydrocodone Bitartrate 5 MG Oral Tablet DANNA ([facility]) 24 HR venlafaxine 37.5 MG Extended Release Oral Capsule DANNA ([facility]) Rosuvastatin calcium 20 MG Oral Tablet DANNA ([facility]) Ondansetron 4 MG Oral Tablet DANNA ([facility]) Nystatin 100 UNT/MG / Triamcinolone Acetonide 0.001 MG/MG Topica l Ointment DANNA ([facility]) Naproxen 500 MG Oral Tablet DANNA ([facility]) Metoprolol Tartrate 25 MG Oral Tablet DANNA ([facility]) Metformin hydrochloride 500 MG Oral Tablet DANNA ([facility]) Acetaminophen 325 MG / Hydrocodone Bitartrate 5 MG Oral Tablet DANNA ([facility]) Cholecalciferol 1000 UNT Oral Tablet DANNA ([facility]) cefdinir 300 MG Oral Capsule DANNA ([facility]) atorvastatin 40 MG Oral Tablet DANNA ([facility]) Amoxicillin 875 MG / Clavulanate 125 MG Oral Tablet DANNA ([facility]) ammonium lactate 120 MG/ML Topical Cream DANNA ([facility]) 24 HR venlafaxine 37.5 MG Extended Release Oral Capsule DANNA ([facility]) Rosuvastatin calcium 20 MG Oral Tablet DANNA ([facility]) Ondansetron 4 MG Oral Tablet DANNA ([facility]) Nystatin 100 UNT/MG / Triamcinolone Acetonide 0.001 MG/MG Topica l Ointment DANNA ([facility]) Naproxen 500 MG Oral Tablet DANNA ([facility]) Metoprolol Tartrate 25 MG Oral Tablet DANNA ([facility]) Metformin hydrochloride 500 MG Oral Tablet DANNA ([facility]) Acetaminophen 325 MG / Hydrocodone Bitartrate 5 MG Oral Tablet DANNA ([facility]) Cholecalciferol 1000 UNT Oral Tablet DANNA ([facility]) cefdinir 300 MG Oral Capsule DANNA ([facility]) atorvastatin 40 MG Oral Tablet DANNA ([facility]) Amoxicillin 875 MG / Clavulanate 125 MG Oral Tablet DANNA ([facility]) ammonium lactate 120 MG/ML Topical Cream DANNA ([facility]) Cholecalciferol 1000 UNT Oral Tablet DANNA ([facility]) cefdinir 300 MG Oral Capsule DANNA ([facility]) atorvastatin 40 MG Oral Tablet DANNA ([facility]) Amoxicillin 875 MG / Clavulanate 125 MG Oral Tablet DANNA ([facility]) ammonium lactate 120 MG/ML Topical Cream DANNA ([facility]) Acetaminophen 325 MG / Hydrocodone Bitartrate 5 MG Oral Tablet DANNA ([facility]) Cholecalciferol 1000 UNT Oral Tablet DANNA ([facility]) atorvastatin 40 MG Oral Tablet DANNA ([facility]) Amoxicillin 875 MG / Clavulanate 125 MG Oral Tablet DANNA ([facility]) ammonium lactate 120 MG/ML Topical Cream DANNA ([facility]) 24 HR venlafaxine 37.5 MG Extended Release Oral Capsule DANNA ([facility]) Rosuvastatin calcium 20 MG Oral Tablet DANNA ([facility]) Ondansetron 4 MG Oral Tablet DANNA ([facility]) Nystatin 100 UNT/MG / Triamcinolone Acetonide 0.001 MG/MG Topica l Ointment DANNA ([facility]) Naproxen 500 MG Oral Tablet DANNA ([facility]) Metoprolol Tartrate 25 MG Oral Tablet DANNA ([facility]) Metformin hydrochloride 500 MG Oral Tablet DANNA ([facility]) Acetaminophen 325 MG / Hydrocodone Bitartrate 5 MG Oral Tablet DANNA ([facility]) Cholecalciferol 1000 UNT Oral Tablet DANNA ([facility]) atorvastatin 40 MG Oral Tablet DANNA ([facility]) ammonium lactate 120 MG/ML Topical Cream DANNA ([facility]) Glipizide 5 MG Oral Tablet [facility] 24 HR venlafaxine 37.5 MG Extended Release Oral Capsule DANNA ([facility]) Rosuvastatin calcium 20 MG Oral Tablet DANNA ([facility]) Ondansetron 4 MG Oral Tablet DANNA ([facility]) Nystatin 100 UNT/MG / Triamcinolone Acetonide 0.001 MG/MG Topica l Ointment [facility] [facility] Naproxen 500 MG Oral Tablet DANNA ([facility]) Metoprolol Tartrate 25 MG Oral Tablet DANNA ([facility]) Metformin hydrochloride 500 MG Oral Tablet DANNA ([facility]) Acetaminophen 325 MG / Hydrocodone Bitartrate 5 MG Oral Tablet DANNA ([facility]) Cholecalciferol 1000 UNT Oral Tablet DANNA ([facility]) atorvastatin 40 MG Oral Tablet DANNA ([facility]) ammonium lactate 120 MG/ML Topical Cream DANNA ([facility]) 24 HR venlafaxine 37.5 MG Extended Release Oral Capsule DANNA ([facility]) Rosuvastatin calcium 20 MG Oral Tablet DANNA ([facility]) Ondansetron 4 MG Oral Tablet DANNA ([facility]) Nystatin 100 UNT/MG / Triamcinolone Acetonide 0.001 MG/MG Topica l Ointment DANNA ([facility]) Naproxen 500 MG Oral Tablet DANNA ([facility]) Metoprolol Tartrate 25 MG Oral Tablet DANNA ([facility]) Metformin hydrochloride 500 MG Oral Tablet DANNA ([facility]) Acetaminophen 325 MG / Hydrocodone Bitartrate 5 MG Oral Tablet DANNA ([facility]) atorvastatin 40 MG Oral Tablet DANNA ([facility]) 24 HR venlafaxine 37.5 MG Extended Release Oral Capsule DANNA ([facility]) Rosuvastatin calcium 20 MG Oral Tablet DANNA ([facility]) Ondansetron 4 MG Oral Tablet DANNA ([facility]) Nystatin 100 UNT/MG / Triamcinolone Acetonide 0.001 MG/MG Topica l Ointment DANNA ([facility]) Naproxen 500 MG Oral Tablet DANNA ([facility]) Metoprolol Tartrate 25 MG Oral Tablet DANNA ([facility]) Metformin hydrochloride 500 MG Oral Tablet DANNA ([facility]) Acetaminophen 325 MG / Hydrocodone Bitartrate 5 MG Oral Tablet DANNA ([facility]) Cholecalciferol 1000 UNT Oral Tablet DANNA ([facility]) atorvastatin 40 MG Oral Tablet DANNA ([facility]) Amoxicillin 875 MG / Clavulanate 125 MG Oral Tablet DANNA ([facility]) ammonium lactate 120 MG/ML Topical Cream DANNA ([facility]) 24 HR venlafaxine 37.5 MG Extended Release Oral Capsule DANNA ([facility]) Rosuvastatin calcium 20 MG Oral Tablet DANNA ([facility]) Ondansetron 4 MG Oral Tablet DANNA ([facility]) Nystatin 100 UNT/MG / Triamcinolone Acetonide 0.001 MG/MG Topica l Ointment DANNA ([facility]) Naproxen 500 MG Oral Tablet DANNA ([facility]) Metoprolol Tartrate 25 MG Oral Tablet DANNA ([facility]) Metformin hydrochloride 500 MG Oral Tablet DANNA ([facility]) 24 HR venlafaxine 37.5 MG Extended Release Oral Capsule DANNA ([facility]) Rosuvastatin calcium 20 MG Oral Tablet DANNA ([facility]) Ondansetron 4 MG Oral Tablet DANNA ([facility]) Nystatin 100 UNT/MG / Triamcinolone Acetonide 0.001 MG/MG Topica l Ointment DANNA ([facility]) Naproxen 500 MG Oral Tablet DANNA ([facility]) Metoprolol Tartrate 25 MG Oral Tablet DANNA ([facility]) Metformin hydrochloride 500 MG Oral Tablet DANNA ([facility]) Acetaminophen 325 MG / Hydrocodone Bitartrate 5 MG Oral Tablet DANNA ([facility]) Cholecalciferol 1000 UNT Oral Tablet DANNA ([facility]) atorvastatin 40 MG Oral Tablet DANNA ([facility]) Amoxicillin 875 MG / Clavulanate 125 MG Oral Tablet DANNA ([facility]) ammonium lactate 120 MG/ML Topical Cream DANNA ([facility])
[2021-03-15 18:19] LABS: ALBUMIN 3.1 GM/DL (3.2-5.2); ALT/SGPT 27 U/L (12-78); BILIRUBIN,DIRECT < 0.1 MG/DL (0.0-0.2); BILIRUBIN,TOTAL 0.2 MG/DL (0.2-1.0); LIPASE 571 U/L (73-393); TOTAL PROTEIN 7.2 GM/DL (6.4-8.2)
[2021-03-15 18:22] LABS: HEMOGLOBIN A1c 13.4 %
[2021-03-15] MEDS ORDERED: HumuLIN R (REGULAR) INSULIN (NovoLIN R) **100U/ML** PER UNIT IV ONE (18:35)
[2021-03-15 19:46] LABS: ABG BASE EXCESS -1.7 (-2.0-2.0); ABG HCO3 24.5 MEQ/L (22.0-26.0); ABG PARTIAL PRESSURE CO2 47.2 mmHg (35.0-45.0); ABG PARTIAL PRESSURE O2 76.1 mmHg (75.0-100.0); ABG TOTAL CO2 25.9 MEQ/L (22.0-29.0); ABG pH (ARTERIAL) 7.333 UNITS (7.350-7.450)
== END 2021-03-15 23:13 | disposition home or self-care (01) ==
LOC: M ED 16:09
DX: E11.65 Type 2 diabetes mellitus with hyperglycemia (principal); E78.5 Hyperlipidemia, unspecified; I13.10 Hypertensive heart and chronic kidney disease without heart failure, with stage 1 through stage 4 chronic kidney disease, or unspecified chronic kidney disease; I25.10 Atherosclerotic heart disease of native coronary artery without angina pectoris; R25.1 Tremor, unspecified; Z87.891 Personal history of nicotine dependence; R19.7 Diarrhea, unspecified; Z79.4 Long term (current) use of insulin; Z79.899 Other long term (current) drug therapy

== ENCOUNTER → 2021-04-03 | Outpatient (REF) | payer MEDICARE, MEDICAID | LOC: M LAB REF 17:18 | PROVIDERS: ATTEND Internal Medicine Nephrology | DX: E83.42 Hypomagnesemia (principal) ==

== ENCOUNTER 2021-04-21 16:28 | Emergency (ER) | payer MEDICAID, MEDICARE ==
[~2021-04-21] VITALS: Ht 162.6 cm; Wt 110.5 kg
[2021-04-21] MEDS ORDERED: FERR325T19 (16:44)
[2021-04-21] MEDS ORDERED: VITA200032 (16:44)
[2021-04-21] MEDS ORDERED: EZET10TA21 (16:44)
[2021-04-21] MEDS ORDERED: FLUTISP (16:44)
[2021-04-21] MEDS ORDERED: ZONI100C17 (16:44)
[2021-04-21] MEDS ORDERED: DONE10TA90 PO (16:44)
[2021-04-21] MEDS ORDERED: LIDOCAINE 5% (LIDODERM) PATCH TD ONE ×2 (17:50→19:50)
[2021-04-21] MEDS ORDERED: predniSONE 20 MG TAB PO ONE (17:50)
[2021-04-21] MEDS ORDERED: tiZANidine 4 MG TAB PO PRN (19:50)
[2021-04-21] MEDS ORDERED: MEDR4PAK PO (19:55)
[2021-04-21] MEDS ORDERED: TIZA4CAP6 PO (20:00)
[2021-04-21] MEDS ORDERED: LIDO5DIS41 TD (20:00)
[2021-04-21 20:34] VITALS: BP 133/89
[2021-04-21] MEDS ORDERED: **NOTE PATIENT COMMENT** MISC XX SCH (21:00)
[2021-04-22] MEDS ORDERED: **NOTE PATIENT COMMENT** MISC XX SCH (09:00)
== END 2021-04-21 20:36 | disposition home or self-care (01) ==
LOC: M ED 16:28
DX: M54.16 Radiculopathy, lumbar region (principal); F43.10 Post-traumatic stress disorder, unspecified; F32.89 Other specified depressive episodes; E11.9 Type 2 diabetes mellitus without complications; Z79.84 Long term (current) use of oral hypoglycemic drugs; Z95.5 Presence of coronary angioplasty implant and graft; Z88.1 Allergy status to other antibiotic agents
CPT/HCPCS: 36415; 76775; 81001; 87086; 99283; J7512

== ENCOUNTER 2021-07-11 09:39 | Emergency (ER) | payer MEDICARE ==
[~2021-07-11] VITALS: Ht 162.6 cm; Wt 109.1 kg
[~2021-07-11 09:39] MED LIST changes: +DONE10TA90 PO; +EZET10TA21; +FERR325T19; +FLUTISP; +LIDO5DIS41 TD; +MEDR4PAK PO; +TIZA4CAP6 PO; +VITA200032
[2021-07-11 10:43] LABS: BASO # 0.1 10^3/uL (0.0-0.2); BASO % 0.7 % (0.0-1.0); EOS # 0.2 10^3/uL (0.0-0.5); EOS % 2.2 % (0.0-3.0); HEMATOCRIT 39.8 % (36.0-47.0); LYMPH # 2.8 10^3/uL (1.5-5.0); LYMPH % 33.1 % (24.0-44.0); MEAN CORPUSCULAR HEMOGLOBIN 31.1 pg (27.0-33.0); MEAN CORPUSCULAR HGB CONC 32.7 g/dl (32.0-36.5); MEAN CORPUSCULAR VOLUME 95.2 fl (80.0-96.0); MONO # 0.3 10^3/uL (0.0-0.8); MONO % 3.3 % (2.0-8.0); NEUTROPHILS # 5.1 10^3/uL (1.5-8.5); NEUTROPHILS % 60.2 % (36.0-66.0); PLATELET COUNT, AUTOMATED 231 10^3/uL (150-450); RED BLOOD COUNT 4.18 10^6/uL (4.00-5.40); WHITE BLOOD COUNT 8.5 10^3/uL (4.0-10.0)
[2021-07-11] MEDS ORDERED: GI COCKTAIL 50ML BTL(HYOSCYAMINE/MAALOX/LIDOCAINE VISCOUS)(1:3:1) PO ONE (11:20)
[2021-07-11] MEDS ORDERED: NITROGLYCERIN 2% OINT 1 GM *U/D* PKT TOP ONE (11:40)
[2021-07-11] MEDS ORDERED: ASPIRIN 81 MG CHEW TABLET PO ONE (11:40)
[2021-07-11 11:42] LABS: ALBUMIN 3.3 GM/DL (3.2-5.2); ALT/SGPT 24 U/L (12-78); BILIRUBIN,DIRECT < 0.1 MG/DL (0.0-0.2); BILIRUBIN,TOTAL 0.2 MG/DL (0.2-1.0); BLOOD UREA NITROGEN 35 MG/DL (7-18); CALCIUM LEVEL 9.4 MG/DL (8.5-10.1); CARBON DIOXIDE LEVEL 27 MEQ/L (21-32); CHLORIDE LEVEL 105 MEQ/L (98-107); CREATININE FOR GFR 1.35 MG/DL (0.55-1.30); GLOMERULAR FILTRATION RATE 42.7 (>51); GLUCOSE, FASTING 248 MG/DL (70-100); NT-PRO BNP 150 PG/ML (<125); POTASSIUM SERUM 5.3 MEQ/L (3.5-5.1); SODIUM LEVEL 138 MEQ/L (136-145); TOTAL PROTEIN 6.9 GM/DL (6.4-8.2)
[2021-07-11] MEDS ORDERED: HEPARIN DRIP 25,000 UNITS in IV 1 EA IV SCH (11:50)
[2021-07-11] MEDS ORDERED: HEPARIN SOD (PORCINE) 5000UNITS/ML 1ML VIAL/SYRINGE IV ONE (11:50)
[2021-07-11] MEDS ORDERED: MORPHINE 4 MG/ML 1ML VIAL/SYRINGE (J2270) IV PRN (11:50)
[2021-07-11 12:01] VITALS: BP 145/64
[2021-07-11 12:15] LABS: INR 0.91; PROTHROMBIN TIME 12.7 SECONDS (12.7-14.5)
[2021-07-11 12:16] LABS: PARTIAL THROMBOPLASTIN TIME 28.5 SECONDS (25.9-37.0)
[2021-07-11 12:36] LABS: CK-MB VALUE MASS 2.3 NG/ML (<3.6); MB/CK RELATIVE INDEX 3.77 (< OR =4)
[2021-07-11 13:07] LABS: RSV AMPLIFICATION NEGATIVE (NEGATIVE)
[2021-07-11 13:32] VITALS: BP 128/69
== END 2021-07-11 13:34 | disposition short-term general hospital (02) ==
LOC: M ED 09:39
DX: I21.4 Non-ST elevation (NSTEMI) myocardial infarction (principal); I10 Essential (primary) hypertension; E11.9 Type 2 diabetes mellitus without complications; Z79.4 Long term (current) use of insulin; K21.9 Gastro-esophageal reflux disease without esophagitis; N18.4 Chronic kidney disease, stage 4 (severe); E78.5 Hyperlipidemia, unspecified; Z95.5 Presence of coronary angioplasty implant and graft; Z79.51 Long term (current) use of inhaled steroids; Z79.899 Other long term (current) drug therapy; Z88.1 Allergy status to other antibiotic agents
CPT/HCPCS: 71045; 80048; 80076; 82550; 82553; 83880; 84484; 85025; 85610; 85730; 87631; 93005; 93041; 94760; 96365; 96375; 99285; J1644; J2270

== ENCOUNTER 2021-09-26 12:14 | Emergency (ER) | payer MEDICARE ==
[~2021-09-26] VITALS: Ht 162.6 cm; Wt 111.4 kg
[~2021-09-26 12:14] MED LIST changes: -ZONI100C17; +ZONI100C67
[2021-09-26 16:54] LABS: BASO # 0.1 10^3/uL (0.0-0.2); BASO % 0.8 % (0.0-1.0); EOS # 0.2 10^3/uL (0.0-0.5); EOS % 2.5 % (0.0-3.0); HEMATOCRIT 40.4 % (36.0-47.0); HEMOGLOBIN 12.7 g/dl (12.0-15.5); LYMPH % 30.7 % (24.0-44.0); MEAN CORPUSCULAR HEMOGLOBIN 31.7 pg (27.0-33.0); MEAN CORPUSCULAR HGB CONC 31.4 g/dl (32.0-36.5); MEAN CORPUSCULAR VOLUME 100.7 fl (80.0-96.0); MONO # 0.5 10^3/uL (0.0-0.8); MONO % 4.9 % (2.0-8.0); NEUTROPHILS # 5.9 10^3/uL (1.5-8.5); NEUTROPHILS % 60.6 % (36.0-66.0); PLATELET COUNT, AUTOMATED 280 10^3/uL (150-450); RED BLOOD COUNT 4.01 10^6/uL (4.00-5.40); WHITE BLOOD COUNT 9.7 10^3/uL (4.0-10.0)
[2021-09-26 17:15] LABS: CALCIUM LEVEL 9.4 MG/DL (8.5-10.1); CREATININE FOR GFR 1.3 MG/DL (0.55-1.30); GLOMERULAR FILTRATION RATE 44.6 (>51); POTASSIUM SERUM 4.1 MEQ/L (3.5-5.1); URIC ACID 7.7 MG/DL (2.6-6.0)
[2021-09-26] MEDS ORDERED: COLCHICINE 0.6 MG TABLET PO ONE ×2 (18:35)
[2021-09-26] MEDS ORDERED: PRED20TA PO (18:37)
[2021-09-26 19:00] VITALS: BP 136/80
== END 2021-09-26 22:05 | disposition home or self-care (01) ==
LOC: M ED 12:14
DX: M10.072 Idiopathic gout, left ankle and foot (principal); R79.89 Other specified abnormal findings of blood chemistry; I25.2 Old myocardial infarction; I10 Essential (primary) hypertension; G47.33 Obstructive sleep apnea (adult) (pediatric); N18.9 Chronic kidney disease, unspecified; Z95.5 Presence of coronary angioplasty implant and graft; Z88.1 Allergy status to other antibiotic agents; Z88.2 Allergy status to sulfonamides; Z79.811 Long term (current) use of aromatase inhibitors; Z79.4 Long term (current) use of insulin; Z79.899 Other long term (current) drug therapy

== ENCOUNTER 2021-09-30 15:14 | Emergency (ER) | payer MEDICARE ==
[~2021-09-30] VITALS: Ht 162.6 cm; Wt 112.9 kg
[~2021-09-30 15:14] MED LIST changes: +PRED20TA PO
[2021-09-30] MEDS ORDERED: VASC0.5C PO (15:28)
[2021-09-30] MEDS ORDERED: ISOS1TAB36 (15:28)
[2021-09-30] MEDS ORDERED: NORCO, ANEXSIA 5/325MG TABLET (HYDROcodone/ACETAMINOPHEN) PO ONE (16:45)
[2021-09-30 17:19] LABS: BASO # 0.1 10^3/uL (0.0-0.2); BASO % 0.5 % (0.0-1.0); EOS # 0.1 10^3/uL (0.0-0.5); EOS % 0.6 % (0.0-3.0); HEMATOCRIT 38.6 % (36.0-47.0); HEMOGLOBIN 12.3 g/dl (12.0-15.5); LYMPH # 3.7 10^3/uL (1.5-5.0); LYMPH % 25.2 % (24.0-44.0); MEAN CORPUSCULAR HEMOGLOBIN 31.7 pg (27.0-33.0); MEAN CORPUSCULAR HGB CONC 31.9 g/dl (32.0-36.5); MEAN CORPUSCULAR VOLUME 99.5 fl (80.0-96.0); MONO # 0.8 10^3/uL (0.0-0.8); MONO % 5.6 % (2.0-8.0); NEUTROPHILS % 67.6 % (36.0-66.0); PLATELET COUNT, AUTOMATED 268 10^3/uL (150-450); RED BLOOD COUNT 3.88 10^6/uL (4.00-5.40); WHITE BLOOD COUNT 14.7 10^3/uL (4.0-10.0)
[2021-09-30 17:38] LABS: ERYTHROCYTE SEDIMENTATION RATE 53 mm/hr (0-30)
[2021-09-30 17:51] LABS: ALT/SGPT 19 U/L (12-78); BILIRUBIN,DIRECT < 0.1 MG/DL (0.0-0.2); BILIRUBIN,TOTAL 0.2 MG/DL (0.2-1.0); BLOOD UREA NITROGEN 28 MG/DL (7-18); C REACTIVE PROTEIN QUANTITATIV 2.18 MG/DL (0.00-0.30); CALCIUM LEVEL 9.2 MG/DL (8.5-10.1); CARBON DIOXIDE LEVEL 29 MEQ/L (21-32); CHLORIDE LEVEL 109 MEQ/L (98-107); CREATININE FOR GFR 1.48 MG/DL (0.55-1.30); GLOMERULAR FILTRATION RATE 38.4 (>51); GLUCOSE, FASTING 274 MG/DL (70-100); POTASSIUM SERUM 3.9 MEQ/L (3.5-5.1); SODIUM LEVEL 143 MEQ/L (136-145); URIC ACID 7.1 MG/DL (2.6-6.0)
[2021-09-30] MEDS ORDERED: ceFAZolin SOD 2 GM in IV 1 EA IV ONE (18:10)
[2021-09-30] MEDS ORDERED: DOXY-443 PO (19:51)
[2021-09-30] MEDS ORDERED: TRAM50TA2 PO (19:51)
[2021-09-30 20:22] VITALS: BP 158/84
== END 2021-09-30 20:28 | disposition home or self-care (01) ==
LOC: M ED 15:14
DX: L03.116 Cellulitis of left lower limb (principal); E11.9 Type 2 diabetes mellitus without complications; I25.2 Old myocardial infarction; I10 Essential (primary) hypertension; F41.9 Anxiety disorder, unspecified; F43.10 Post-traumatic stress disorder, unspecified; K58.9 Irritable bowel syndrome, unspecified; M51.36 Other intervertebral disc degeneration, lumbar region; Z88.1 Allergy status to other antibiotic agents; Z88.2 Allergy status to sulfonamides; Z79.4 Long term (current) use of insulin; Z79.811 Long term (current) use of aromatase inhibitors; Z79.899 Other long term (current) drug therapy
CPT/HCPCS: 73660; 80048; 80076; 84550; 85025; 85652; 86140; 96365; 99283; J0690

== ENCOUNTER 2021-10-06 17:47 | Inpatient (IN) | payer MEDICARE ==
[~2021-10-06] VITALS: Ht 162.6 cm; Wt 106.4 kg
[~2021-10-06 17:47] MED LIST changes: -CLOP75TA2; +CLOP75TA2 PO; +DOXY-443 PO; -EZET10TA21; +EZET10TA21 PO; -FERR325T19; +FERR325T19 PO; +ISOS1TAB36 PO; -LISI10TA22; +LISI10TA22 PO; -PANT40TA29; +PANT40TA29 PO; +TRAM50TA2 PO; +VASC0.5C PO; -VENL150C43; +VENL150C43 PO; -VENL75CA47; +VENL75CA47 PO; -VITA200032; +VITA200032 PO; +ZONI100C67 PO
[2021-10-06 18:58] LABS: BASO # 0.1 10^3/uL (0.0-0.2); BASO % 0.4 % (0.0-1.0); EOS # 0.1 10^3/uL (0.0-0.5); EOS % 0.4 % (0.0-3.0); HEMATOCRIT 36.3 % (36.0-47.0); HEMOGLOBIN 11.7 g/dl (12.0-15.5); LYMPH # 4.2 10^3/uL (1.5-5.0); LYMPH % 21.6 % (24.0-44.0); MEAN CORPUSCULAR HEMOGLOBIN 30.8 pg (27.0-33.0); MEAN CORPUSCULAR HGB CONC 32.2 g/dl (32.0-36.5); MEAN CORPUSCULAR VOLUME 95.5 fl (80.0-96.0); MONO # 0.9 10^3/uL (0.0-0.8); MONO % 4.7 % (2.0-8.0); NEUTROPHILS # 14.1 10^3/uL (1.5-8.5); NEUTROPHILS % 72.2 % (36.0-66.0); PLATELET COUNT, AUTOMATED 336 10^3/uL (150-450); WHITE BLOOD COUNT 19.5 10^3/uL (4.0-10.0)
[2021-10-06 19:20] LABS: ERYTHROCYTE SEDIMENTATION RATE 98 mm/hr (0-30)
[2021-10-06 19:41] LABS: ALBUMIN 2.7 GM/DL (3.2-5.2); ALT/SGPT 19 U/L (12-78); BILIRUBIN,DIRECT < 0.1 MG/DL (0.0-0.2); BILIRUBIN,TOTAL 0.2 MG/DL (0.2-1.0); BLOOD UREA NITROGEN 44 MG/DL (7-18); C REACTIVE PROTEIN QUANTITATIV 6.78 MG/DL (0.00-0.30); CALCIUM LEVEL 8.9 MG/DL (8.5-10.1); CARBON DIOXIDE LEVEL 26 MEQ/L (21-32); CHLORIDE LEVEL 102 MEQ/L (98-107); CREATININE FOR GFR 1.75 MG/DL (0.55-1.30); GLOMERULAR FILTRATION RATE 31.7 (>51); GLUCOSE, FASTING 405 MG/DL (70-100); POTASSIUM SERUM 4.3 MEQ/L (3.5-5.1); SODIUM LEVEL 137 MEQ/L (136-145); TOTAL PROTEIN 6.9 GM/DL (6.4-8.2)
[2021-10-06] MEDS ORDERED: CEFTAROLINE FOSAMIL 600 MG in D5W MINI-BAG PLUS 50 ML IV ONE (21:25)
[2021-10-06] MEDS ORDERED: GLUCOSE 4GM CHEW TABLET PO PRN (22:35)
[2021-10-06] MEDS ORDERED: MOM 30ML SUSPENSION UDC PO PRN (22:35)
[2021-10-06] MEDS ORDERED: GLUCAGON INJ 1MG VIAL SC PRN (22:35)
[2021-10-06] MEDS ORDERED: VANCOMYCIN HCL 1,000 MG, VIAL MATE ADAPTER 1 EACH in NS 250 ML IV SCH (22:35)
[2021-10-06] MEDS ORDERED: MAALOX 30 ML SUSP *UDC PO PRN (22:35)
[2021-10-06] MEDS ORDERED: DEXTROSE 50% 50 ML SYRINGE IV PRN (22:35)
[2021-10-06] MEDS: NS 1,000 ML IV SCH (22:53)
[2021-10-06] MEDS: INSULIN LISPRO (NovoLOG) PER UNIT SC SCH (22:53)
[2021-10-06 22:54] LABS: URIC ACID 8.6 MG/DL (2.6-6.0)
[2021-10-06] MEDS ORDERED: VANCOMYCIN HCL 1,000 MG, VIAL MATE ADAPTER 1 EACH in NS 250 ML IV ONE (23:00)
[2021-10-06 23:10] LABS: RSV AMPLIFICATION NEGATIVE (NEGATIVE)
[2021-10-06] MEDS ORDERED: DOXY100C3 PO (23:48)
[2021-10-06] MEDS ORDERED: METO50TA7 PO (23:48)
[2021-10-06] MEDS ORDERED: ATOR80TA59 PO (23:48)
[2021-10-06] MEDS ORDERED: ASPI81TA26 PO (23:48)
[2021-10-06] MEDS ORDERED: TRAM50TA2 PO (23:48)
[2021-10-06] MEDS ORDERED: METF-839 PO (23:48)
[2021-10-06] MEDS ORDERED: MAGN400T35 PO (23:48)
[2021-10-06 23:49] LABS: INR 0.97; PROTHROMBIN TIME 13.3 SECONDS (12.7-14.5)
[2021-10-06 23:50] LABS: PARTIAL THROMBOPLASTIN TIME 26.4 SECONDS (25.9-37.0)
[2021-10-06] MEDS ORDERED: HOME MED LIST COMPLETE! XX SCH (23:50)
[2021-10-07] MEDS ORDERED: COLCHICINE 0.6 MG TABLET PO ONE
[2021-10-07] MEDS ORDERED: VANCOMYCIN HCL 1,000 MG, VIAL MATE ADAPTER 1 EACH in NS 250 ML IV ONE ×3
[2021-10-07 00:16] VITALS: BP 145/88
[2021-10-07] MEDS: MORPHINE 2 MG/ML 1ML VIAL IV PRN ×3 (00:56→18:50)
[2021-10-07 04:11] LABS: APPEARANCE, URINE CLEAR (CLEAR); BACTERIA, URINE AUTO NEGATIVE (NEGATIVE); BILIRUBIN, URINE AUTO NEGATIVE (NEGATIVE); BLOOD, URINE BLOOD NEGATIVE (NEGATIVE); COLOR, URINE STRAW (YELLOW); GLUCOSE, URINE (UA) AUTO 3+ mg/dL (NEGATIVE); KETONE, URINE AUTO NEGATIVE (NEGATIVE); LEUKOCYTE ESTERASE, URINE AUTO NEGATIVE (NEGATIVE); NITRITE, URINE AUTO NEGATIVE (NEGATIVE); PROTEIN, URINE AUTO NEGATIVE (NEGATIVE); RBC, URINE AUTO 1 /HPF (0-3); SPECIFIC GRAVITY URINE AUTO 1.022 (1.002-1.035); SQUAMOUS EPITHELIAL CELL UR AU 1 /HPF (0-6); UROBILINOGEN, URINE AUTO 0.2 mg/dL (0.0-2.0); WBC, URINE AUTO 0 /HPF (0-3)
[2021-10-07 04:31] LABS: CREATININE,RANDOM URINE 52.6 MG/DL; TOTAL PROTEIN,RANDOM URINE 21.4 MG/DL (0.0-12.0)
[2021-10-07] MEDS: HEPARIN SOD (PORCINE) 5000UNITS/ML 1ML VIAL/SYRINGE SC SCH ×3 (05:34→21:23)
[2021-10-07] MEDS: MORPHINE 4 MG/ML 1ML VIAL/SYRINGE IV PRN (05:35)
[2021-10-07 06:00] VITALS: BP 146/86
[2021-10-07 06:11] LABS: HEMATOCRIT 35.9 % (36.0-47.0); HEMOGLOBIN 11.6 g/dl (12.0-15.5); MEAN CORPUSCULAR HEMOGLOBIN 31.4 pg (27.0-33.0); MEAN CORPUSCULAR HGB CONC 32.3 g/dl (32.0-36.5); PLATELET COUNT, AUTOMATED 303 10^3/uL (150-450); WHITE BLOOD COUNT 16.5 10^3/uL (4.0-10.0)
[2021-10-07 06:28] LABS: CALCIUM LEVEL 8.6 MG/DL (8.5-10.1); CREATININE FOR GFR 1.49 MG/DL (0.55-1.30); GLOMERULAR FILTRATION RATE 38.1 (>51); MAGNESIUM LEVEL 1.5 MG/DL (1.8-2.4); POTASSIUM SERUM 3.8 MEQ/L (3.5-5.1)
[2021-10-07] MEDS: CLOPIDOGREL 75 MG TAB PO SCH (09:10)
[2021-10-07] MEDS: FERROUS SULFATE 325MG TAB PO SCH (09:10)
[2021-10-07] MEDS: NS 1,000 ML IV SCH (09:10)
[2021-10-07] MEDS: CETIRIZINE (ZyrTEC) 10 MG TAB PO SCH (09:10)
[2021-10-07] MEDS: GABAPENTIN 300 MG CAP PO SCH ×3 (09:10→21:20)
[2021-10-07] MEDS: PANTOPRAZOLE 40MG TAB (PROTONIX) PO SCH (09:10)
[2021-10-07] MEDS: ASPIRIN 81MG ENTERIC TABLET PO SCH (09:10)
[2021-10-07] MEDS: INSULIN LISPRO (NovoLOG) PER UNIT SC SCH ×4 (09:10→21:24)
[2021-10-07] MEDS: DOCUSATE SODIUM 100MG CAPSULE PO SCH ×2 (09:10→21:21)
[2021-10-07] MEDS: traMADol 50 MG TAB PO SCH ×3 (09:11→21:23)
[2021-10-07] MEDS: VENLAFAXINE **XR** 75MG CAPSULE PO SCH ×2 (09:11)
[2021-10-07] MEDS: MAGNESIUM OXIDE 400MG TAB (MAG-OX) PO SCH ×2 (09:11→21:21)
[2021-10-07] MEDS: DONEPEZIL 5 MG TAB PO SCH (09:12)
[2021-10-07] MEDS: EZETIMIBE 10MG TABLET (ZETIA) PO SCH (09:12)
[2021-10-07] MEDS: METOPROLOL TART 50 MG TAB PO SCH ×2 (09:12→21:21)
[2021-10-07] MEDS: ISOSORBIDE MON. (IMDUR) 60 MG XR TAB PO SCH (09:12)
[2021-10-07] MEDS: ATORVASTATIN 20 MG TAB PO SCH (09:12)
[2021-10-07 14:00] VITALS: BP 107/65
[2021-10-07] MEDS ORDERED: VANCOMYCIN HCL 750 MG, VIAL MATE ADAPTER 1 EACH in NS 250 ML IV SCH (14:00)
[2021-10-07] MEDS ORDERED: VANCOMYCIN HCL 500 MG in D5W MINI-BAG PLUS 100 ML IV SCH (15:00)
[2021-10-07 21:20] VITALS: BP 134/82
[2021-10-07] MEDS: ZONISAMIDE 100 MG CAP (ZONEGRAN) PO SCH (21:21)
[2021-10-07] MEDS: LEVEMIR (INSULIN DETEMIR) 1 UNITS/0.01ML SC SCH (21:24)
[2021-10-08] MEDS: MORPHINE 2 MG/ML 1ML VIAL IV PRN (04:25)
[2021-10-08] MEDS: HEPARIN SOD (PORCINE) 5000UNITS/ML 1ML VIAL/SYRINGE SC SCH ×3 (05:35→22:04)
[2021-10-08 05:44] VITALS: BP 140/69
[2021-10-08 07:03] LABS: HEMATOCRIT 36.1 % (36.0-47.0); HEMOGLOBIN 11.5 g/dl (12.0-15.5); MEAN CORPUSCULAR HEMOGLOBIN 30.8 pg (27.0-33.0); MEAN CORPUSCULAR HGB CONC 31.9 g/dl (32.0-36.5); MEAN CORPUSCULAR VOLUME 96.8 fl (80.0-96.0); PLATELET COUNT, AUTOMATED 301 10^3/uL (150-450); RED BLOOD COUNT 3.73 10^6/uL (4.00-5.40); WHITE BLOOD COUNT 17.7 10^3/uL (4.0-10.0)
[2021-10-08 07:31] LABS: CALCIUM LEVEL 8.6 MG/DL (8.5-10.1); CREATININE FOR GFR 1.27 MG/DL (0.55-1.30); GLOMERULAR FILTRATION RATE 45.9 (>51); MAGNESIUM LEVEL 1.5 MG/DL (1.8-2.4); POTASSIUM SERUM 3.9 MEQ/L (3.5-5.1)
[2021-10-08] MEDS ORDERED: VANCOMYCIN HCL 1,000 MG, VIAL MATE ADAPTER 1 EACH in NS 250 ML IV SCH (08:00)
[2021-10-08] MEDS ORDERED: MAG SULF 1GM/100ML (MAG RUN) 1 GM in IV 1 EA IV ONE (08:35)
[2021-10-08] MEDS: PANTOPRAZOLE 40MG TAB (PROTONIX) PO SCH (08:41)
[2021-10-08] MEDS: VENLAFAXINE **XR** 75MG CAPSULE PO SCH ×2 (08:41→08:42)
[2021-10-08] MEDS: ASPIRIN 81MG ENTERIC TABLET PO SCH (08:41)
[2021-10-08] MEDS: INSULIN LISPRO (NovoLOG) PER UNIT SC SCH ×4 (08:41→22:03)
[2021-10-08] MEDS: GABAPENTIN 300 MG CAP PO SCH ×3 (08:41→22:01)
[2021-10-08] MEDS: FERROUS SULFATE 325MG TAB PO SCH (08:42)
[2021-10-08] MEDS: CETIRIZINE (ZyrTEC) 10 MG TAB PO SCH (08:42)
[2021-10-08] MEDS: DOCUSATE SODIUM 100MG CAPSULE PO SCH ×2 (08:42→22:00)
[2021-10-08] MEDS: EZETIMIBE 10MG TABLET (ZETIA) PO SCH (08:42)
[2021-10-08] MEDS: DONEPEZIL 5 MG TAB PO SCH (08:42)
[2021-10-08] MEDS: CLOPIDOGREL 75 MG TAB PO SCH (08:42)
[2021-10-08] MEDS: MAGNESIUM OXIDE 400MG TAB (MAG-OX) PO SCH ×2 (08:42→22:02)
[2021-10-08] MEDS: traMADol 50 MG TAB PO SCH ×3 (08:43→22:03)
[2021-10-08] MEDS: ISOSORBIDE MON. (IMDUR) 60 MG XR TAB PO SCH (08:43)
[2021-10-08] MEDS: METOPROLOL TART 50 MG TAB PO SCH ×2 (08:43→22:02)
[2021-10-08] MEDS: ATORVASTATIN 20 MG TAB PO SCH (08:43)
[2021-10-08 08:52] LABS: C REACTIVE PROTEIN QUANTITATIV 10.7 MG/DL (0.00-0.30)
[2021-10-08 09:28] LABS: ERYTHROCYTE SEDIMENTATION RATE 86 mm/hr (0-30)
[2021-10-08] MEDS ORDERED: ISOVUE-370 76% 100ML VIAL As Ordered ONE (13:31)
[2021-10-08 14:00] VITALS: BP 139/69
[2021-10-08] MEDS: cefTRIAXone SOD 1 GM in D5W MINI-BAG PLUS 50 ML IV SCH (17:30)
[2021-10-08 22:00] VITALS: BP 140/82
[2021-10-08] MEDS: ZONISAMIDE 100 MG CAP (ZONEGRAN) PO SCH (22:01)
[2021-10-08] MEDS: LEVEMIR (INSULIN DETEMIR) 1 UNITS/0.01ML SC SCH (22:04)
[2021-10-09 06:00] VITALS: BP 158/60
[2021-10-09] MEDS: HEPARIN SOD (PORCINE) 5000UNITS/ML 1ML VIAL/SYRINGE SC SCH ×3 (06:06→20:40)
[2021-10-09] MEDS: MORPHINE 2 MG/ML 1ML VIAL IV PRN ×2 (06:06→09:42)
[2021-10-09] MEDS: cefTRIAXone SOD 1 GM in D5W MINI-BAG PLUS 50 ML IV SCH ×2 (06:07→18:11)
[2021-10-09 06:09] LABS: HEMATOCRIT 35.5 % (36.0-47.0); HEMOGLOBIN 11.2 g/dl (12.0-15.5); MEAN CORPUSCULAR HEMOGLOBIN 30.9 pg (27.0-33.0); MEAN CORPUSCULAR HGB CONC 31.5 g/dl (32.0-36.5); MEAN CORPUSCULAR VOLUME 98.1 fl (80.0-96.0); PLATELET COUNT, AUTOMATED 318 10^3/uL (150-450); RED BLOOD COUNT 3.62 10^6/uL (4.00-5.40); WHITE BLOOD COUNT 17.3 10^3/uL (4.0-10.0)
[2021-10-09 06:37] LABS: CREATININE FOR GFR 1.51 MG/DL (0.55-1.30); GLOMERULAR FILTRATION RATE 37.5 (>51); MAGNESIUM LEVEL 1.8 MG/DL (1.8-2.4); POTASSIUM SERUM 4.1 MEQ/L (3.5-5.1)
[2021-10-09] MEDS: VENLAFAXINE **XR** 75MG CAPSULE PO SCH ×2 (08:15→08:18)
[2021-10-09] MEDS: DOCUSATE SODIUM 100MG CAPSULE PO SCH ×2 (08:15→20:38)
[2021-10-09] MEDS: FERROUS SULFATE 325MG TAB PO SCH (08:15)
[2021-10-09] MEDS: ATORVASTATIN 20 MG TAB PO SCH (08:15)
[2021-10-09] MEDS: ASPIRIN 81MG ENTERIC TABLET PO SCH (08:15)
[2021-10-09] MEDS: PANTOPRAZOLE 40MG TAB (PROTONIX) PO SCH (08:16)
[2021-10-09] MEDS: CETIRIZINE (ZyrTEC) 10 MG TAB PO SCH (08:16)
[2021-10-09] MEDS: MAGNESIUM OXIDE 400MG TAB (MAG-OX) PO SCH ×2 (08:16→20:39)
[2021-10-09] MEDS: DONEPEZIL 5 MG TAB PO SCH (08:16)
[2021-10-09] MEDS: ISOSORBIDE MON. (IMDUR) 60 MG XR TAB PO SCH (08:16)
[2021-10-09] MEDS: CLOPIDOGREL 75 MG TAB PO SCH (08:16)
[2021-10-09] MEDS: GABAPENTIN 300 MG CAP PO SCH ×3 (08:16→20:39)
[2021-10-09] MEDS: INSULIN LISPRO (NovoLOG) PER UNIT SC SCH ×4 (08:17→20:39)
[2021-10-09] MEDS: METOPROLOL TART 50 MG TAB PO SCH ×2 (08:18→20:39)
[2021-10-09] MEDS: traMADol 50 MG TAB PO SCH ×3 (08:19→20:41)
[2021-10-09] MEDS: EZETIMIBE 10MG TABLET (ZETIA) PO SCH (08:25)
[2021-10-09] MEDS: NS 1,000 ML IV SCH ×2 (09:42→20:43)
[2021-10-09 14:00] VITALS: BP 142/77
[2021-10-09 20:23] VITALS: BP 140/83
[2021-10-09] MEDS: LEVEMIR (INSULIN DETEMIR) 1 UNITS/0.01ML SC SCH (20:39)
[2021-10-09] MEDS: ZONISAMIDE 100 MG CAP (ZONEGRAN) PO SCH (20:39)
[2021-10-09] MEDS: ACETAMINOPHEN TAB 650MG DOSE (2X325MG) PO PRN (20:40)
[2021-10-09 22:00] VITALS: BP 118/63
[2021-10-09 23:51] VITALS: BP 116/65
[2021-10-10 02:00] VITALS: BP 120/66
[2021-10-10 05:06] VITALS: BP 125/70
[2021-10-10] MEDS: HEPARIN SOD (PORCINE) 5000UNITS/ML 1ML VIAL/SYRINGE SC SCH ×3 (05:27→21:23)
[2021-10-10] MEDS: NYSTATIN 100,000 UNITS/GM TOPICAL PWD 15 GM TOP PRN (05:28)
[2021-10-10] MEDS: cefTRIAXone SOD 1 GM in D5W MINI-BAG PLUS 50 ML IV SCH (05:28)
[2021-10-10] MEDS: MORPHINE 2 MG/ML 1ML VIAL IV PRN (05:29)
[2021-10-10 06:09] LABS: HEMATOCRIT 33.5 % (36.0-47.0); HEMOGLOBIN 10.5 g/dl (12.0-15.5); MEAN CORPUSCULAR HGB CONC 31.3 g/dl (32.0-36.5); MEAN CORPUSCULAR VOLUME 98.8 fl (80.0-96.0); PLATELET COUNT, AUTOMATED 327 10^3/uL (150-450); RED BLOOD COUNT 3.39 10^6/uL (4.00-5.40)
[2021-10-10 06:40] LABS: CREATININE FOR GFR 1.47 MG/DL (0.55-1.30); GLOMERULAR FILTRATION RATE 38.7 (>51); MAGNESIUM LEVEL 2.1 MG/DL (1.8-2.4); POTASSIUM SERUM 3.9 MEQ/L (3.5-5.1)
[2021-10-10] MEDS ORDERED: VANCOMYCIN HCL 1,000 MG, VIAL MATE ADAPTER 1 EACH in NS 250 ML IV SCH (08:20)
[2021-10-10] MEDS ORDERED: CEFEPIME HCL 1 GM in D5W MINI-BAG PLUS 50 ML IV SCH (08:30)
[2021-10-10] MEDS: ASPIRIN 81MG ENTERIC TABLET PO SCH (08:56)
[2021-10-10] MEDS: GABAPENTIN 300 MG CAP PO SCH ×3 (08:56→21:22)
[2021-10-10] MEDS: MAGNESIUM OXIDE 400MG TAB (MAG-OX) PO SCH ×2 (08:56→21:22)
[2021-10-10] MEDS: predniSONE 20 MG TAB PO SCH ×2 (08:56→21:21)
[2021-10-10] MEDS: PANTOPRAZOLE 40MG TAB (PROTONIX) PO SCH (08:56)
[2021-10-10] MEDS: INSULIN LISPRO (NovoLOG) PER UNIT SC SCH ×4 (08:56→21:22)
[2021-10-10] MEDS: DOCUSATE SODIUM 100MG CAPSULE PO SCH ×2 (08:56→21:21)
[2021-10-10] MEDS: VENLAFAXINE **XR** 75MG CAPSULE PO SCH ×2 (08:57)
[2021-10-10] MEDS: CETIRIZINE (ZyrTEC) 10 MG TAB PO SCH (08:57)
[2021-10-10] MEDS: FERROUS SULFATE 325MG TAB PO SCH (08:57)
[2021-10-10] MEDS: CLOPIDOGREL 75 MG TAB PO SCH (08:57)
[2021-10-10] MEDS: DONEPEZIL 5 MG TAB PO SCH (08:57)
[2021-10-10] MEDS: EZETIMIBE 10MG TABLET (ZETIA) PO SCH (08:57)
[2021-10-10] MEDS: ATORVASTATIN 20 MG TAB PO SCH (08:57)
[2021-10-10] MEDS: METOPROLOL TART 50 MG TAB PO SCH ×2 (08:58→21:22)
[2021-10-10] MEDS: ISOSORBIDE MON. (IMDUR) 60 MG XR TAB PO SCH (08:58)
[2021-10-10] MEDS: traMADol 50 MG TAB PO SCH ×3 (08:59→21:23)
[2021-10-10 09:28] LABS: C REACTIVE PROTEIN QUANTITATIV 13.5 MG/DL (0.00-0.30)
[2021-10-10 09:44] LABS: VANCOMYCIN RANDOM 10.3 UG/ML
[2021-10-10 10:00] VITALS: BP 129/70
[2021-10-10] MEDS: CEFEPIME HCL 2 GM in D5W MINI-BAG PLUS 50 ML IV SCH ×2 (10:26→21:23)
[2021-10-10] MEDS ORDERED: PROHANCE 279.3MG/ML 15ML VIAL As Ordered ONE (12:05)
[2021-10-10 14:00] VITALS: BP 142/72
[2021-10-10 18:00] VITALS: BP 137/70
[2021-10-10] MEDS ORDERED: cefTRIAXone SOD 2 GM in D5W MINI-BAG PLUS 50 ML IV SCH (18:00)
[2021-10-10] MEDS: ZONISAMIDE 100 MG CAP (ZONEGRAN) PO SCH (21:22)
[2021-10-10] MEDS: LEVEMIR (INSULIN DETEMIR) 1 UNITS/0.01ML SC SCH (21:23)
[2021-10-10 22:00] VITALS: BP 132/71
[2021-10-11 02:00] VITALS: BP 131/71
[2021-10-11 05:14] VITALS: BP 132/79
[2021-10-11] MEDS: HEPARIN SOD (PORCINE) 5000UNITS/ML 1ML VIAL/SYRINGE SC SCH ×3 (05:21→22:20)
[2021-10-11 06:32] LABS: HEMATOCRIT 33.3 % (36.0-47.0); HEMOGLOBIN 10.3 g/dl (12.0-15.5); MEAN CORPUSCULAR HEMOGLOBIN 30.8 pg (27.0-33.0); MEAN CORPUSCULAR HGB CONC 30.9 g/dl (32.0-36.5); MEAN CORPUSCULAR VOLUME 99.7 fl (80.0-96.0); PLATELET COUNT, AUTOMATED 359 10^3/uL (150-450); RED BLOOD COUNT 3.34 10^6/uL (4.00-5.40); WHITE BLOOD COUNT 20.5 10^3/uL (4.0-10.0)
[2021-10-11 07:40] LABS: CALCIUM LEVEL 8.3 MG/DL (8.5-10.1); CREATININE FOR GFR 1.51 MG/DL (0.55-1.30); GLOMERULAR FILTRATION RATE 37.5 (>51); MAGNESIUM LEVEL 2.1 MG/DL (1.8-2.4); POTASSIUM SERUM 5.2 MEQ/L (3.5-5.1)
[2021-10-11] MEDS: predniSONE 20 MG TAB PO SCH ×2 (08:45→22:18)
[2021-10-11] MEDS: CLOPIDOGREL 75 MG TAB PO SCH (08:45)
[2021-10-11] MEDS: PANTOPRAZOLE 40MG TAB (PROTONIX) PO SCH (08:45)
[2021-10-11] MEDS: CETIRIZINE (ZyrTEC) 10 MG TAB PO SCH (08:45)
[2021-10-11] MEDS: GABAPENTIN 300 MG CAP PO SCH ×3 (08:45→22:19)
[2021-10-11] MEDS: MAGNESIUM OXIDE 400MG TAB (MAG-OX) PO SCH ×2 (08:45→22:19)
[2021-10-11] MEDS: DONEPEZIL 5 MG TAB PO SCH (08:45)
[2021-10-11] MEDS: ASPIRIN 81MG ENTERIC TABLET PO SCH (08:45)
[2021-10-11] MEDS: DOCUSATE SODIUM 100MG CAPSULE PO SCH ×2 (08:45→22:18)
[2021-10-11] MEDS: FERROUS SULFATE 325MG TAB PO SCH (08:45)
[2021-10-11] MEDS: ATORVASTATIN 20 MG TAB PO SCH (08:46)
[2021-10-11] MEDS: INSULIN LISPRO (NovoLOG) PER UNIT SC SCH ×4 (08:46→22:20)
[2021-10-11] MEDS: VENLAFAXINE **XR** 75MG CAPSULE PO SCH ×2 (08:46→08:51)
[2021-10-11] MEDS: traMADol 50 MG TAB PO SCH ×3 (08:48→22:21)
[2021-10-11] MEDS: METOPROLOL TART 50 MG TAB PO SCH ×2 (08:50→22:19)
[2021-10-11] MEDS: ISOSORBIDE MON. (IMDUR) 60 MG XR TAB PO SCH (08:50)
[2021-10-11] MEDS ORDERED: LEVEMIR (INSULIN DETEMIR) 1 UNITS/0.01ML SC SCH ×3 (09:00→21:00)
[2021-10-11] MEDS: EZETIMIBE 10MG TABLET (ZETIA) PO SCH (09:24)
[2021-10-11 10:00] VITALS: BP 130/70
[2021-10-11] MEDS: CEFEPIME HCL 2 GM in D5W MINI-BAG PLUS 50 ML IV SCH ×2 (10:32→22:20)
[2021-10-11 13:53] VITALS: BP 126/69
[2021-10-11 22:00] VITALS: BP 123/73
[2021-10-11] MEDS: ZONISAMIDE 100 MG CAP (ZONEGRAN) PO SCH (22:19)
[2021-10-11] MEDS: NYSTATIN 100,000 UNITS/GM TOPICAL PWD 15 GM TOP PRN (22:21)
[2021-10-12] MEDS: HEPARIN SOD (PORCINE) 5000UNITS/ML 1ML VIAL/SYRINGE SC SCH ×3 (05:30→20:39)
[2021-10-12 06:00] VITALS: BP 146/82
[2021-10-12 06:00] LABS: HEMATOCRIT 31.7 % (36.0-47.0); MEAN CORPUSCULAR HGB CONC 31.5 g/dl (32.0-36.5); MEAN CORPUSCULAR VOLUME 98.1 fl (80.0-96.0); PLATELET COUNT, AUTOMATED 385 10^3/uL (150-450); RED BLOOD COUNT 3.23 10^6/uL (4.00-5.40); WHITE BLOOD COUNT 19.7 10^3/uL (4.0-10.0)
[2021-10-12 06:33] LABS: C REACTIVE PROTEIN QUANTITATIV 7.28 MG/DL (0.00-0.30); CALCIUM LEVEL 8.6 MG/DL (8.5-10.1); CREATININE FOR GFR 1.4 MG/DL (0.55-1.30); MAGNESIUM LEVEL 2.1 MG/DL (1.8-2.4); POTASSIUM SERUM 5.7 MEQ/L (3.5-5.1)
[2021-10-12 06:53] LABS: ERYTHROCYTE SEDIMENTATION RATE 128 mm/hr (0-30)
[2021-10-12] MEDS ORDERED: HumuLIN R (REGULAR) INSULIN (NovoLIN R) **100U/ML** PER UNIT IV STA (07:35)
[2021-10-12] MEDS ORDERED: SOD POLYSTYRENE SULFONATE SUSP 15GM 60ML UD PO ONE (09:00)
[2021-10-12] MEDS ORDERED: LEVEMIR (INSULIN DETEMIR) 1 UNITS/0.01ML SC SCH (09:00)
[2021-10-12] MEDS: LEVEMIR (INSULIN DETEMIR) 1 UNITS/0.01ML SC SCH ×2 (09:03→20:23)
[2021-10-12] MEDS: INSULIN LISPRO (NovoLOG) PER UNIT SC SCH ×4 (09:03→20:38)
[2021-10-12] MEDS: GABAPENTIN 300 MG CAP PO SCH ×3 (09:04→20:25)
[2021-10-12] MEDS: CETIRIZINE (ZyrTEC) 10 MG TAB PO SCH (09:04)
[2021-10-12] MEDS: DONEPEZIL 5 MG TAB PO SCH (09:04)
[2021-10-12] MEDS: ASPIRIN 81MG ENTERIC TABLET PO SCH (09:05)
[2021-10-12] MEDS: FERROUS SULFATE 325MG TAB PO SCH (09:05)
[2021-10-12] MEDS: DOCUSATE SODIUM 100MG CAPSULE PO SCH ×2 (09:05→20:23)
[2021-10-12] MEDS: PANTOPRAZOLE 40MG TAB (PROTONIX) PO SCH (09:05)
[2021-10-12] MEDS: predniSONE 20 MG TAB PO SCH ×2 (09:05→20:23)
[2021-10-12] MEDS: EZETIMIBE 10MG TABLET (ZETIA) PO SCH (09:05)
[2021-10-12] MEDS: CLOPIDOGREL 75 MG TAB PO SCH (09:05)
[2021-10-12] MEDS: traMADol 50 MG TAB PO SCH ×3 (09:06→20:25)
[2021-10-12] MEDS: VENLAFAXINE **XR** 75MG CAPSULE PO SCH ×2 (09:07→09:12)
[2021-10-12] MEDS: MAGNESIUM OXIDE 400MG TAB (MAG-OX) PO SCH ×2 (09:07→20:25)
[2021-10-12] MEDS: ISOSORBIDE MON. (IMDUR) 60 MG XR TAB PO SCH (09:07)
[2021-10-12] MEDS: ATORVASTATIN 20 MG TAB PO SCH (09:08)
[2021-10-12] MEDS: METOPROLOL TART 50 MG TAB PO SCH ×2 (09:08→20:28)
[2021-10-12] MEDS: CEFEPIME HCL 2 GM in D5W MINI-BAG PLUS 50 ML IV SCH (10:24)
[2021-10-12] MEDS: NYSTATIN 100,000 UNITS/GM TOPICAL PWD 15 GM TOP PRN (11:14)
[2021-10-12] MEDS: ACETAMINOPHEN TAB 650MG DOSE (2X325MG) PO PRN ×2 (12:21→23:28)
[2021-10-12 12:41] LABS: CALCIUM LEVEL 8.5 MG/DL (8.5-10.1); CREATININE FOR GFR 1.35 MG/DL (0.55-1.30); GLOMERULAR FILTRATION RATE 42.7 (>51)
[2021-10-12 14:00] VITALS: BP 150/80
[2021-10-12] MEDS: MUPIROCIN 2% OINT 22 GM TUBE TOP SCH (14:35)
[2021-10-12] MEDS: ZONISAMIDE 100 MG CAP (ZONEGRAN) PO SCH (20:23)
[2021-10-12] MEDS: cefTRIAXone SOD 2 GM in D5W MINI-BAG PLUS 50 ML IV SCH (20:30)
[2021-10-12 22:00] VITALS: BP 124/54
[2021-10-13] MEDS: MORPHINE 2 MG/ML 1ML VIAL IV PRN ×2 (01:23→18:15)
[2021-10-13 06:00] VITALS: BP 157/85
[2021-10-13 06:07] LABS: HEMATOCRIT 30.3 % (36.0-47.0); HEMOGLOBIN 9.4 g/dl (12.0-15.5); PLATELET COUNT, AUTOMATED 383 10^3/uL (150-450); RED BLOOD COUNT 3.03 10^6/uL (4.00-5.40); WHITE BLOOD COUNT 17.8 10^3/uL (4.0-10.0)
[2021-10-13 06:37] LABS: CREATININE FOR GFR 1.39 MG/DL (0.55-1.30); GLOMERULAR FILTRATION RATE 41.3 (>51); MAGNESIUM LEVEL 2.2 MG/DL (1.8-2.4)
[2021-10-13] MEDS: HEPARIN SOD (PORCINE) 5000UNITS/ML 1ML VIAL/SYRINGE SC SCH ×3 (06:54→21:17)
[2021-10-13] MEDS: LEVEMIR (INSULIN DETEMIR) 1 UNITS/0.01ML SC SCH ×2 (08:15→21:17)
[2021-10-13] MEDS: INSULIN LISPRO (NovoLOG) PER UNIT SC SCH ×4 (08:17→21:00)
[2021-10-13] MEDS: DONEPEZIL 5 MG TAB PO SCH (08:21)
[2021-10-13] MEDS: DOCUSATE SODIUM 100MG CAPSULE PO SCH ×2 (08:21→21:15)
[2021-10-13] MEDS: FERROUS SULFATE 325MG TAB PO SCH (08:21)
[2021-10-13] MEDS: ATORVASTATIN 20 MG TAB PO SCH (08:21)
[2021-10-13] MEDS: VENLAFAXINE **XR** 75MG CAPSULE PO SCH ×2 (08:22)
[2021-10-13] MEDS: EZETIMIBE 10MG TABLET (ZETIA) PO SCH (08:23)
[2021-10-13] MEDS: METOPROLOL TART 50 MG TAB PO SCH ×2 (08:23→21:15)
[2021-10-13] MEDS: CETIRIZINE (ZyrTEC) 10 MG TAB PO SCH (08:23)
[2021-10-13] MEDS: ASPIRIN 81MG ENTERIC TABLET PO SCH (08:24)
[2021-10-13] MEDS: GABAPENTIN 300 MG CAP PO SCH ×3 (08:24→21:16)
[2021-10-13] MEDS: MAGNESIUM OXIDE 400MG TAB (MAG-OX) PO SCH ×2 (08:24→21:16)
[2021-10-13] MEDS: NYSTATIN 100,000 UNITS/GM TOPICAL PWD 15 GM TOP PRN (08:25)
[2021-10-13] MEDS: traMADol 50 MG TAB PO SCH ×3 (08:25→21:17)
[2021-10-13] MEDS: CLOPIDOGREL 75 MG TAB PO SCH (08:25)
[2021-10-13] MEDS: PANTOPRAZOLE 40MG TAB (PROTONIX) PO SCH (08:25)
[2021-10-13] MEDS: MUPIROCIN 2% OINT 22 GM TUBE TOP SCH (08:25)
[2021-10-13] MEDS: ISOSORBIDE MON. (IMDUR) 60 MG XR TAB PO SCH (08:32)
[2021-10-13] MEDS ORDERED: ISOSORBIDE MON. (IMDUR) 60 MG XR TAB PO SCH (09:00)
[2021-10-13 14:00] VITALS: BP 139/75
[2021-10-13 20:20] VITALS: BP 140/77
[2021-10-13] MEDS: ZONISAMIDE 100 MG CAP (ZONEGRAN) PO SCH (21:16)
[2021-10-13] MEDS: cefTRIAXone SOD 2 GM in D5W MINI-BAG PLUS 50 ML IV SCH (21:17)
[2021-10-14] MEDS: MORPHINE 4 MG/ML 1ML VIAL/SYRINGE IV PRN ×3 (02:15→17:48)
[2021-10-14 05:30] VITALS: BP 141/76
[2021-10-14] MEDS: HEPARIN SOD (PORCINE) 5000UNITS/ML 1ML VIAL/SYRINGE SC SCH ×3 (05:40→21:24)
[2021-10-14 06:38] LABS: BASO # 0.1 10^3/uL (0.0-0.2); BASO % 0.4 % (0.0-1.0); EOS # 0.2 10^3/uL (0.0-0.5); EOS % 0.9 % (0.0-3.0); HEMATOCRIT 32.1 % (36.0-47.0); HEMOGLOBIN 10.1 g/dl (12.0-15.5); LYMPH # 3.7 10^3/uL (1.5-5.0); LYMPH % 20.2 % (24.0-44.0); MEAN CORPUSCULAR HEMOGLOBIN 31.3 pg (27.0-33.0); MEAN CORPUSCULAR HGB CONC 31.5 g/dl (32.0-36.5); MEAN CORPUSCULAR VOLUME 99.4 fl (80.0-96.0); MONO # 0.8 10^3/uL (0.0-0.8); MONO % 4.4 % (2.0-8.0); NEUTROPHILS # 13.2 10^3/uL (1.5-8.5); NEUTROPHILS % 72.5 % (36.0-66.0); PLATELET COUNT, AUTOMATED 421 10^3/uL (150-450); RED BLOOD COUNT 3.23 10^6/uL (4.00-5.40); WHITE BLOOD COUNT 18.3 10^3/uL (4.0-10.0)
[2021-10-14 06:59] LABS: ERYTHROCYTE SEDIMENTATION RATE 106 mm/hr (0-30)
[2021-10-14 07:06] LABS: C REACTIVE PROTEIN QUANTITATIV 3.32 MG/DL (0.00-0.30); CALCIUM LEVEL 9.1 MG/DL (8.5-10.1); CREATININE FOR GFR 1.2 MG/DL (0.55-1.30); POTASSIUM SERUM 4.6 MEQ/L (3.5-5.1)
[2021-10-14] MEDS: VENLAFAXINE **XR** 75MG CAPSULE PO SCH ×2 (08:59→09:00)
[2021-10-14] MEDS: traMADol 50 MG TAB PO SCH ×3 (08:59→21:25)
[2021-10-14] MEDS: CETIRIZINE (ZyrTEC) 10 MG TAB PO SCH (08:59)
[2021-10-14] MEDS: GABAPENTIN 300 MG CAP PO SCH ×3 (09:00→21:23)
[2021-10-14] MEDS: PANTOPRAZOLE 40MG TAB (PROTONIX) PO SCH (09:00)
[2021-10-14] MEDS: ATORVASTATIN 20 MG TAB PO SCH (09:00)
[2021-10-14] MEDS: MAGNESIUM OXIDE 400MG TAB (MAG-OX) PO SCH ×2 (09:00→21:23)
[2021-10-14] MEDS: FERROUS SULFATE 325MG TAB PO SCH (09:00)
[2021-10-14] MEDS: ASPIRIN 81MG ENTERIC TABLET PO SCH (09:00)
[2021-10-14] MEDS: CLOPIDOGREL 75 MG TAB PO SCH (09:00)
[2021-10-14] MEDS: DOCUSATE SODIUM 100MG CAPSULE PO SCH ×2 (09:00→21:17)
[2021-10-14] MEDS: DONEPEZIL 5 MG TAB PO SCH (09:00)
[2021-10-14] MEDS: EZETIMIBE 10MG TABLET (ZETIA) PO SCH (09:00)
[2021-10-14] MEDS: INSULIN LISPRO (NovoLOG) PER UNIT SC SCH ×5 (09:01→21:00)
[2021-10-14] MEDS: LEVEMIR (INSULIN DETEMIR) 1 UNITS/0.01ML SC SCH ×2 (09:01→21:24)
[2021-10-14] MEDS: NYSTATIN 100,000 UNITS/GM TOPICAL PWD 15 GM TOP PRN (09:02)
[2021-10-14] MEDS: MUPIROCIN 2% OINT 22 GM TUBE TOP SCH (09:02)
[2021-10-14] MEDS: METOPROLOL TART 50 MG TAB PO SCH ×2 (09:04→21:17)
[2021-10-14] MEDS: ISOSORBIDE MON. (IMDUR) 60 MG XR TAB PO SCH (09:05)
[2021-10-14 14:00] VITALS: BP 128/69
[2021-10-14 20:13] VITALS: BP 151/80
[2021-10-14] MEDS: ZONISAMIDE 100 MG CAP (ZONEGRAN) PO SCH (21:23)
[2021-10-14] MEDS: cefTRIAXone SOD 2 GM in D5W MINI-BAG PLUS 50 ML IV SCH (21:24)
[2021-10-15 05:17] VITALS: BP 161/85
[2021-10-15] MEDS: HEPARIN SOD (PORCINE) 5000UNITS/ML 1ML VIAL/SYRINGE SC SCH ×3 (05:29→20:55)
[2021-10-15] MEDS: MORPHINE 4 MG/ML 1ML VIAL/SYRINGE IV PRN ×2 (05:30→23:45)
[2021-10-15 06:33] LABS: BASO # 0.1 10^3/uL (0.0-0.2); BASO % 0.4 % (0.0-1.0); EOS # 0.3 10^3/uL (0.0-0.5); EOS % 1.5 % (0.0-3.0); HEMATOCRIT 33.7 % (36.0-47.0); HEMOGLOBIN 10.5 g/dl (12.0-15.5); LYMPH # 3.4 10^3/uL (1.5-5.0); LYMPH % 19.1 % (24.0-44.0); MEAN CORPUSCULAR HEMOGLOBIN 31.6 pg (27.0-33.0); MEAN CORPUSCULAR HGB CONC 31.2 g/dl (32.0-36.5); MEAN CORPUSCULAR VOLUME 101.5 fl (80.0-96.0); MONO # 0.7 10^3/uL (0.0-0.8); MONO % 3.8 % (2.0-8.0); NEUTROPHILS # 12.9 10^3/uL (1.5-8.5); PLATELET COUNT, AUTOMATED 438 10^3/uL (150-450); RED BLOOD COUNT 3.32 10^6/uL (4.00-5.40); WHITE BLOOD COUNT 17.7 10^3/uL (4.0-10.0)
[2021-10-15 06:52] LABS: CALCIUM LEVEL 9.1 MG/DL (8.5-10.1); CREATININE FOR GFR 1.23 MG/DL (0.55-1.30); GLOMERULAR FILTRATION RATE 47.6 (>51); POTASSIUM SERUM 4.5 MEQ/L (3.5-5.1)
[2021-10-15] MEDS: INSULIN LISPRO (NovoLOG) PER UNIT SC SCH ×4 (07:30→20:54)
[2021-10-15] MEDS: EZETIMIBE 10MG TABLET (ZETIA) PO SCH (08:45)
[2021-10-15] MEDS: ASPIRIN 81MG ENTERIC TABLET PO SCH (08:45)
[2021-10-15] MEDS: METOPROLOL TART 50 MG TAB PO SCH ×2 (08:45→20:54)
[2021-10-15] MEDS: PANTOPRAZOLE 40MG TAB (PROTONIX) PO SCH (08:46)
[2021-10-15] MEDS: GABAPENTIN 300 MG CAP PO SCH ×3 (08:46→20:54)
[2021-10-15] MEDS: VENLAFAXINE **XR** 75MG CAPSULE PO SCH ×2 (08:46→08:47)
[2021-10-15] MEDS: ISOSORBIDE MON. (IMDUR) 60 MG XR TAB PO SCH (08:46)
[2021-10-15] MEDS: DOCUSATE SODIUM 100MG CAPSULE PO SCH ×2 (08:46→20:53)
[2021-10-15] MEDS: LEVEMIR (INSULIN DETEMIR) 1 UNITS/0.01ML SC SCH (08:46)
[2021-10-15] MEDS: MAGNESIUM OXIDE 400MG TAB (MAG-OX) PO SCH ×2 (08:46→20:54)
[2021-10-15] MEDS: traMADol 50 MG TAB PO SCH ×3 (08:47→20:56)
[2021-10-15] MEDS: DONEPEZIL 5 MG TAB PO SCH (08:47)
[2021-10-15] MEDS: ATORVASTATIN 20 MG TAB PO SCH (08:47)
[2021-10-15] MEDS: FERROUS SULFATE 325MG TAB PO SCH (08:47)
[2021-10-15] MEDS: CLOPIDOGREL 75 MG TAB PO SCH (08:47)
[2021-10-15] MEDS: CETIRIZINE (ZyrTEC) 10 MG TAB PO SCH (08:47)
[2021-10-15] MEDS: MUPIROCIN 2% OINT 22 GM TUBE TOP SCH (08:48)
[2021-10-15 14:00] VITALS: BP 122/66
[2021-10-15] MEDS: metroNIDAZOLE (FLAGYL) 500MG TABLET PO SCH ×2 (16:09→20:53)
[2021-10-15] MEDS: LACTOBACILLUS ACIDOPHILUS CAP (BACID) PO SCH (17:40)
[2021-10-15 20:36] VITALS: BP 150/60
[2021-10-15] MEDS: ZONISAMIDE 100 MG CAP (ZONEGRAN) PO SCH (20:54)
[2021-10-15] MEDS: cefTRIAXone SOD 2 GM in D5W MINI-BAG PLUS 50 ML IV SCH (20:55)
[2021-10-15] MEDS: NYSTATIN 100,000 UNITS/GM TOPICAL PWD 15 GM TOP PRN (20:57)
[2021-10-15] MEDS ORDERED: LEVEMIR (INSULIN DETEMIR) 1 UNITS/0.01ML SC SCH (21:00)
[2021-10-16] MEDS: HEPARIN SOD (PORCINE) 5000UNITS/ML 1ML VIAL/SYRINGE SC SCH ×2 (05:39→14:00)
[2021-10-16] MEDS: MORPHINE 4 MG/ML 1ML VIAL/SYRINGE IV PRN (05:40)
[2021-10-16 06:00] VITALS: BP 150/78
[2021-10-16 06:22] LABS: BASO # 0.1 10^3/uL (0.0-0.2); BASO % 0.4 % (0.0-1.0); EOS # 0.2 10^3/uL (0.0-0.5); EOS % 1.2 % (0.0-3.0); HEMATOCRIT 35.1 % (36.0-47.0); HEMOGLOBIN 10.6 g/dl (12.0-15.5); LYMPH # 3.2 10^3/uL (1.5-5.0); LYMPH % 18.8 % (24.0-44.0); MEAN CORPUSCULAR HEMOGLOBIN 30.4 pg (27.0-33.0); MEAN CORPUSCULAR HGB CONC 30.2 g/dl (32.0-36.5); MEAN CORPUSCULAR VOLUME 100.6 fl (80.0-96.0); MONO # 0.6 10^3/uL (0.0-0.8); MONO % 3.6 % (2.0-8.0); NEUTROPHILS # 12.3 10^3/uL (1.5-8.5); NEUTROPHILS % 72.9 % (36.0-66.0); PLATELET COUNT, AUTOMATED 457 10^3/uL (150-450); RED BLOOD COUNT 3.49 10^6/uL (4.00-5.40); WHITE BLOOD COUNT 16.9 10^3/uL (4.0-10.0)
[2021-10-16 06:51] LABS: CALCIUM LEVEL 9.3 MG/DL (8.5-10.1); CREATININE FOR GFR 1.31 MG/DL (0.55-1.30); GLOMERULAR FILTRATION RATE 44.2 (>51); POTASSIUM SERUM 4.4 MEQ/L (3.5-5.1)
[2021-10-16] MEDS ORDERED: RISATAB3 PO (08:05)
[2021-10-16] MEDS ORDERED: CEFU50TA PO (08:05)
[2021-10-16] MEDS ORDERED: METR-265 PO (08:05)
[2021-10-16] MEDS ORDERED: MUPI2OI TOP (08:05)
[2021-10-16] MEDS: INSULIN LISPRO (NovoLOG) PER UNIT SC SCH ×2 (08:23→12:27)
[2021-10-16] MEDS: GABAPENTIN 300 MG CAP PO SCH (08:24)
[2021-10-16] MEDS: FERROUS SULFATE 325MG TAB PO SCH (08:24)
[2021-10-16] MEDS: metroNIDAZOLE (FLAGYL) 500MG TABLET PO SCH (08:24)
[2021-10-16] MEDS: CLOPIDOGREL 75 MG TAB PO SCH (08:24)
[2021-10-16] MEDS: ATORVASTATIN 20 MG TAB PO SCH (08:24)
[2021-10-16] MEDS: LACTOBACILLUS ACIDOPHILUS CAP (BACID) PO SCH (08:24)
[2021-10-16] MEDS: DOCUSATE SODIUM 100MG CAPSULE PO SCH (08:24)
[2021-10-16] MEDS: LEVEMIR (INSULIN DETEMIR) 1 UNITS/0.01ML SC SCH (08:24)
[2021-10-16] MEDS: ASPIRIN 81MG ENTERIC TABLET PO SCH (08:24)
[2021-10-16 08:26] VITALS: BP 165/93
[2021-10-16] MEDS: PANTOPRAZOLE 40MG TAB (PROTONIX) PO SCH (08:26)
[2021-10-16] MEDS: ISOSORBIDE MON. (IMDUR) 60 MG XR TAB PO SCH (08:26)
[2021-10-16] MEDS: MAGNESIUM OXIDE 400MG TAB (MAG-OX) PO SCH (08:26)
[2021-10-16] MEDS: CETIRIZINE (ZyrTEC) 10 MG TAB PO SCH (08:26)
[2021-10-16] MEDS: METOPROLOL TART 50 MG TAB PO SCH (08:26)
[2021-10-16 08:27] VITALS: BP 165/93
[2021-10-16] MEDS: DONEPEZIL 5 MG TAB PO SCH (08:27)
[2021-10-16] MEDS: traMADol 50 MG TAB PO SCH (08:27)
[2021-10-16] MEDS: VENLAFAXINE **XR** 75MG CAPSULE PO SCH ×2 (08:28)
[2021-10-16] MEDS: MUPIROCIN 2% OINT 22 GM TUBE TOP SCH (08:29)
[2021-10-16] MEDS: EZETIMIBE 10MG TABLET (ZETIA) PO SCH (08:48)
[2021-10-16] MEDS: ACETAMINOPHEN TAB 650MG DOSE (2X325MG) PO PRN (13:56)
[2021-10-16] MEDS ORDERED: COLC0.6T47 PO (19:31)
== END 2021-10-16 15:35 | disposition home or self-care (01) | DRG 602 ==
LOC: M ED 17:47 → M ED INP 22:32 → M MSPAV 10-07 00:16
PROVIDERS: ADMIT Internal Medicine; ATTEND Internal Medicine
PROC: 0H9NXZZ Drainage of Left Foot Skin, External Approach (ICD-10-PCS; principal; 2021-10-09)
DX: L03.032 Cellulitis of left toe (principal); A41.9 Sepsis, unspecified organism; N17.9 Acute kidney failure, unspecified; I25.10 Atherosclerotic heart disease of native coronary artery without angina pectoris; E78.5 Hyperlipidemia, unspecified; K21.9 Gastro-esophageal reflux disease without esophagitis; I12.9 Hypertensive chronic kidney disease with stage 1 through stage 4 chronic kidney disease, or unspecified chronic kidney disease; E11.22 Type 2 diabetes mellitus with diabetic chronic kidney disease; N18.30 Chronic kidney disease, stage 3 unspecified; L97.529 Non-pressure chronic ulcer of other part of left foot with unspecified severity; F41.9 Anxiety disorder, unspecified; F32.A Depression, unspecified; M10.9 Gout, unspecified; R56.9 Unspecified convulsions; Z95.2 Presence of prosthetic heart valve; G47.33 Obstructive sleep apnea (adult) (pediatric); Z79.82 Long term (current) use of aspirin; Z79.899 Other long term (current) drug therapy; Z79.4 Long term (current) use of insulin; Z88.8 Allergy status to other drugs, medicaments and biological substances; Z96.653 Presence of artificial knee joint, bilateral; E87.5 Hyperkalemia; B96.29 Other Escherichia coli [E. coli] as the cause of diseases classified elsewhere

== ENCOUNTER 2021-11-21 14:40 | Inpatient (IN) | payer MEDICARE, MEDICAID ==
[~2021-11-21] VITALS: Ht 160 cm; Wt 111.0 kg
[~2021-11-21 14:40] MED LIST changes: +ASPI81TA26 PO; +ATOR80TA59 PO; +CEFU50TA PO; +COLC0.6T47 PO; +DOXY100C3 PO; +MAGN400T35 PO; +METF-839 PO; +METO50TA7 PO; +METR-265 PO; +MUPI2OI TOP; +RISATAB3 PO
[2021-11-21 18:27] LABS: BASO # 0.1 10^3/uL (0.0-0.2); BASO % 0.7 % (0.0-1.0); EOS # 0.1 10^3/uL (0.0-0.5); EOS % 1.2 % (0.0-3.0); HEMATOCRIT 34.4 % (36.0-47.0); HEMOGLOBIN 10.9 g/dl (12.0-15.5); LYMPH # 3.3 10^3/uL (1.5-5.0); LYMPH % 33.5 % (24.0-44.0); MEAN CORPUSCULAR HEMOGLOBIN 30.6 pg (27.0-33.0); MEAN CORPUSCULAR HGB CONC 31.7 g/dl (32.0-36.5); MEAN CORPUSCULAR VOLUME 96.6 fl (80.0-96.0); MONO # 0.3 10^3/uL (0.0-0.8); MONO % 3.2 % (2.0-8.0); NEUTROPHILS % 60.8 % (36.0-66.0); PLATELET COUNT, AUTOMATED 298 10^3/uL (150-450); RED BLOOD COUNT 3.56 10^6/uL (4.00-5.40); WHITE BLOOD COUNT 9.9 10^3/uL (4.0-10.0)
[2021-11-21 18:49] LABS: ALT/SGPT 22 U/L (12-78); BILIRUBIN,DIRECT < 0.1 MG/DL (0.0-0.2); BILIRUBIN,TOTAL 0.1 MG/DL (0.2-1.0); BLOOD UREA NITROGEN 32 MG/DL (7-18); C REACTIVE PROTEIN QUANTITATIV 1.19 MG/DL (0.00-0.30); CALCIUM LEVEL 9.3 MG/DL (8.5-10.1); CARBON DIOXIDE LEVEL 25 MEQ/L (21-32); CHLORIDE LEVEL 109 MEQ/L (98-107); CREATININE FOR GFR 1.19 MG/DL (0.55-1.30); GLOMERULAR FILTRATION RATE 49.4 (>51); GLUCOSE, FASTING 198 MG/DL (70-100); POTASSIUM SERUM 5.3 MEQ/L (3.5-5.1); SODIUM LEVEL 140 MEQ/L (136-145); TOTAL PROTEIN 7.4 GM/DL (6.4-8.2)
[2021-11-21 18:55] LABS: ERYTHROCYTE SEDIMENTATION RATE 83 mm/hr (0-30)
[2021-11-21 18:56] LABS: RSV AMPLIFICATION NEGATIVE (NEGATIVE)
[2021-11-21] MEDS ORDERED: cefTRIAXone SOD 1 GM in D5W MINI-BAG PLUS 50 ML IV ONE (20:05)
[2021-11-21] MEDS: ZONISAMIDE 100 MG CAP (ZONEGRAN) PO SCH (21:00)
[2021-11-21] MEDS ORDERED: MAALOX 30 ML SUSP *UDC PO PRN (22:20)
[2021-11-21] MEDS ORDERED: MOM 30ML SUSPENSION UDC PO PRN (22:20)
[2021-11-21] MEDS ORDERED: GLUCAGON INJ 1MG VIAL SC PRN (23:45)
[2021-11-21] MEDS ORDERED: GLUCOSE 4GM CHEW TABLET PO PRN (23:45)
[2021-11-21] MEDS ORDERED: DEXTROSE 50% 50 ML SYRINGE IV PRN (23:45)
[2021-11-21] MEDS: NS 1,000 ML IV SCH (23:55)
[2021-11-22] MEDS ORDERED: ICOS1CAP PO (00:27)
[2021-11-22] MEDS ORDERED: NITR4TASL SL (00:27)
[2021-11-22] MEDS ORDERED: BACITAB PO (00:27)
[2021-11-22] MEDS ORDERED: METF-838 PO (00:27)
[2021-11-22] MEDS ORDERED: NYST10CR EXT (00:27)
[2021-11-22] MEDS ORDERED: VITA200010 PO (00:27)
[2021-11-22] MEDS ORDERED: HOME MED LIST COMPLETE! XX SCH (00:30)
[2021-11-22] MEDS ORDERED: VANCOMYCIN HCL 1,000 MG, VIAL MATE ADAPTER 1 EACH in NS 250 ML IV ONE ×2 (01:00→02:00)
[2021-11-22] MEDS ORDERED: NITROGLYCERIN 0.4 MG SUBL TABLET SL PRN (01:10)
[2021-11-22 01:53] LABS: CK-MB VALUE MASS 1.1 NG/ML (<3.6); MB/CK RELATIVE INDEX 2.82 (< OR =4)
[2021-11-22 03:18] LABS: CK-MB VALUE MASS < 1.0 NG/ML (<3.6); CPK CREATINE PHOSPHOKINASE 35 U/L (26-192); MB/CK RELATIVE INDEX 2.86 (< OR =4)
[2021-11-22] MEDS ORDERED: HEPARIN SOD (PORCINE) 5000UNITS/ML 1ML VIAL/SYRINGE SC SCH (06:00)
[2021-11-22] MEDS: LEVEMIR (INSULIN DETEMIR) 1 UNITS/0.01ML SC SCH ×2 (06:20→20:54)
[2021-11-22] MEDS: METOPROLOL TART 50 MG TAB PO SCH ×3 (06:27→20:52)
[2021-11-22 08:46] LABS: BASO # 0.1 10^3/uL (0.0-0.2); BASO % 0.7 % (0.0-1.0); EOS # 0.1 10^3/uL (0.0-0.5); EOS % 1.1 % (0.0-3.0); HEMATOCRIT 36.5 % (36.0-47.0); HEMOGLOBIN 11.8 g/dl (12.0-15.5); LYMPH # 2.6 10^3/uL (1.5-5.0); LYMPH % 29.5 % (24.0-44.0); MEAN CORPUSCULAR HEMOGLOBIN 30.5 pg (27.0-33.0); MEAN CORPUSCULAR HGB CONC 32.3 g/dl (32.0-36.5); MEAN CORPUSCULAR VOLUME 94.3 fl (80.0-96.0); MONO # 0.3 10^3/uL (0.0-0.8); MONO % 3.8 % (2.0-8.0); NEUTROPHILS # 5.7 10^3/uL (1.5-8.5); NEUTROPHILS % 64.4 % (36.0-66.0); PLATELET COUNT, AUTOMATED 279 10^3/uL (150-450); RED BLOOD COUNT 3.87 10^6/uL (4.00-5.40); WHITE BLOOD COUNT 8.8 10^3/uL (4.0-10.0)
[2021-11-22] MEDS: FERROUS SULFATE 325MG TAB PO SCH (09:00)
[2021-11-22] MEDS: VENLAFAXINE **XR** 75MG CAPSULE PO SCH (09:00)
[2021-11-22] MEDS: GABAPENTIN 300 MG CAP PO SCH ×3 (09:00→20:53)
[2021-11-22] MEDS: EZETIMIBE 10MG TABLET (ZETIA) PO SCH (09:00)
[2021-11-22] MEDS: ASPIRIN 81MG ENTERIC TABLET PO SCH (09:00)
[2021-11-22] MEDS: ISOSORBIDE MON. (IMDUR) 60 MG XR TAB PO SCH (09:00)
[2021-11-22] MEDS: DONEPEZIL 5 MG TAB PO SCH (09:00)
[2021-11-22 09:15] LABS: ALBUMIN 2.7 GM/DL (3.2-5.2); BILIRUBIN,TOTAL 0.2 MG/DL (0.2-1.0); C REACTIVE PROTEIN QUANTITATIV 0.88 MG/DL (0.00-0.30); CALCIUM LEVEL 9.3 MG/DL (8.5-10.1); CREATININE FOR GFR 1.02 MG/DL (0.55-1.30); MAGNESIUM LEVEL 1.4 MG/DL (1.8-2.4); POTASSIUM SERUM 4.9 MEQ/L (3.5-5.1); TOTAL PROTEIN 7.4 GM/DL (6.4-8.2)
[2021-11-22 09:35] LABS: ERYTHROCYTE SEDIMENTATION RATE 63 mm/hr (0-30)
[2021-11-22] MEDS: INSULIN LISPRO (NovoLOG) PER UNIT SC SCH ×4 (10:07→20:54)
[2021-11-22] MEDS: MAGNESIUM OXIDE 400MG TAB (MAG-OX) PO SCH ×2 (10:22→20:53)
[2021-11-22] MEDS: PANTOPRAZOLE 40MG TAB (PROTONIX) PO SCH (10:22)
[2021-11-22] MEDS: CLOPIDOGREL 75 MG TAB PO SCH (10:23)
[2021-11-22] MEDS: LACTOBACILLUS ACIDOPHILUS CAP (BACID) PO SCH (10:23)
[2021-11-22] MEDS: CETIRIZINE (ZyrTEC) 10 MG TAB PO SCH (10:24)
[2021-11-22 12:19] VITALS: BP 123/64
[2021-11-22] MEDS ORDERED: LEVEMIR (INSULIN DETEMIR) 1 UNITS/0.01ML SC SCH (12:45)
[2021-11-22] MEDS: NS 1,000 ML IV SCH (12:59)
[2021-11-22 13:57] LABS: INR 0.98; PARTIAL THROMBOPLASTIN TIME 28.2 SECONDS (25.9-37.0); PROTHROMBIN TIME 13.4 SECONDS (12.7-14.5)
[2021-11-22] MEDS ORDERED: PROHANCE 279.3MG/ML 15ML VIAL As Ordered ONE (14:24)
[2021-11-22] MEDS: VANCOMYCIN HCL 1,000 MG, VIAL MATE ADAPTER 1 EACH in D5W 250 ML IV SCH (15:22)
[2021-11-22] MEDS: ACETAMINOPHEN TAB 650MG DOSE (2X325MG) PO PRN (19:14)
[2021-11-22 20:00] VITALS: BP 160/72
[2021-11-22] MEDS: ATORVASTATIN 20 MG TAB PO SCH (20:52)
[2021-11-22] MEDS: ENOXAPARIN 40MG/0.4ML SYRINGE (J1650 PER 10MG) SC SCH (20:53)
[2021-11-22] MEDS: ZONISAMIDE 100 MG CAP (ZONEGRAN) PO SCH (20:53)
[2021-11-22] MEDS: cefTRIAXone SOD 1 GM in D5W MINI-BAG PLUS 50 ML IV SCH (20:54)
[2021-11-22] MEDS ORDERED: VANCOMYCIN HCL 1,000 MG, VIAL MATE ADAPTER 1 EACH in D5W 250 ML IV SCH (21:00)
[2021-11-22] MEDS ORDERED: VANCOMYCIN HCL 500 MG in D5W MINI-BAG PLUS 100 ML IV SCH (22:00)
[2021-11-23] MEDS: NS 1,000 ML IV SCH ×3 (02:09→16:31)
[2021-11-23] MEDS: VANCOMYCIN HCL 1,000 MG, VIAL MATE ADAPTER 1 EACH in D5W 250 ML IV SCH (02:10)
[2021-11-23 04:00] VITALS: BP 122/68
[2021-11-23 06:56] LABS: HEMATOCRIT 38.1 % (36.0-47.0); HEMOGLOBIN 11.7 g/dl (12.0-15.5); MEAN CORPUSCULAR HGB CONC 30.7 g/dl (32.0-36.5); MEAN CORPUSCULAR VOLUME 97.7 fl (80.0-96.0); PLATELET COUNT, AUTOMATED 307 10^3/uL (150-450)
[2021-11-23 07:33] LABS: ALBUMIN 2.8 GM/DL (3.2-5.2); BILIRUBIN,TOTAL 0.3 MG/DL (0.2-1.0); CALCIUM LEVEL 9.1 MG/DL (8.5-10.1); CREATININE FOR GFR 1.25 MG/DL (0.55-1.30); GLOMERULAR FILTRATION RATE 46.7 (>51); TOTAL PROTEIN 7.2 GM/DL (6.4-8.2)
[2021-11-23] MEDS: ASPIRIN 81MG ENTERIC TABLET PO SCH (08:22)
[2021-11-23] MEDS: VENLAFAXINE **XR** 75MG CAPSULE PO SCH (08:22)
[2021-11-23] MEDS: DONEPEZIL 5 MG TAB PO SCH (08:22)
[2021-11-23] MEDS: FERROUS SULFATE 325MG TAB PO SCH (08:23)
[2021-11-23] MEDS: CETIRIZINE (ZyrTEC) 10 MG TAB PO SCH (08:23)
[2021-11-23] MEDS: CLOPIDOGREL 75 MG TAB PO SCH (08:23)
[2021-11-23] MEDS: LACTOBACILLUS ACIDOPHILUS CAP (BACID) PO SCH (08:23)
[2021-11-23] MEDS: EZETIMIBE 10MG TABLET (ZETIA) PO SCH (08:23)
[2021-11-23] MEDS: GABAPENTIN 300 MG CAP PO SCH ×3 (08:23→20:17)
[2021-11-23] MEDS: MAGNESIUM OXIDE 400MG TAB (MAG-OX) PO SCH ×2 (08:23→20:17)
[2021-11-23] MEDS: METOPROLOL TART 50 MG TAB PO SCH ×2 (08:25→20:17)
[2021-11-23] MEDS: INSULIN LISPRO (NovoLOG) PER UNIT SC SCH ×4 (08:26→20:10)
[2021-11-23] MEDS: ISOSORBIDE MON. (IMDUR) 60 MG XR TAB PO SCH (08:26)
[2021-11-23] MEDS: ENOXAPARIN 40MG/0.4ML SYRINGE (J1650 PER 10MG) SC SCH ×2 (08:26→20:18)
[2021-11-23] MEDS: PANTOPRAZOLE 40MG TAB (PROTONIX) PO SCH (08:27)
[2021-11-23] MEDS: ACETAMINOPHEN TAB 650MG DOSE (2X325MG) PO PRN ×3 (08:31→20:16)
[2021-11-23] MEDS ORDERED: LEVEMIR (INSULIN DETEMIR) 1 UNITS/0.01ML SC SCH ×2 (09:00→21:00)
[2021-11-23 12:00] VITALS: BP 124/65
[2021-11-23] MEDS ORDERED: VANCOMYCIN HCL 750 MG, VIAL MATE ADAPTER 1 EACH in D5W 250 ML IV SCH ×2 (18:00→19:00)
[2021-11-23 20:00] VITALS: BP 153/77
[2021-11-23] MEDS: ATORVASTATIN 20 MG TAB PO SCH (20:16)
[2021-11-23] MEDS: ZONISAMIDE 100 MG CAP (ZONEGRAN) PO SCH (20:16)
[2021-11-23] MEDS: cefTRIAXone SOD 1 GM in D5W MINI-BAG PLUS 50 ML IV SCH (21:01)
[2021-11-23] MEDS: NORCO, ANEXSIA 5/325MG TABLET (HYDROcodone/ACETAMINOPHEN) PO PRN (21:51)
[2021-11-24 04:00] VITALS: BP 165/70
[2021-11-24] MEDS: NS 1,000 ML IV SCH ×2 (05:31→12:08)
[2021-11-24 06:54] LABS: HEMATOCRIT 35.4 % (36.0-47.0); HEMOGLOBIN 11.1 g/dl (12.0-15.5); MEAN CORPUSCULAR HEMOGLOBIN 30.3 pg (27.0-33.0); MEAN CORPUSCULAR HGB CONC 31.4 g/dl (32.0-36.5); MEAN CORPUSCULAR VOLUME 96.7 fl (80.0-96.0); PLATELET COUNT, AUTOMATED 277 10^3/uL (150-450); RED BLOOD COUNT 3.66 10^6/uL (4.00-5.40); WHITE BLOOD COUNT 8.5 10^3/uL (4.0-10.0)
[2021-11-24 07:19] LABS: ALBUMIN 2.7 GM/DL (3.2-5.2); BILIRUBIN,TOTAL 0.2 MG/DL (0.2-1.0); CALCIUM LEVEL 8.9 MG/DL (8.5-10.1); CREATININE FOR GFR 1.1 MG/DL (0.55-1.30); GLOMERULAR FILTRATION RATE 54.1 (>51); POTASSIUM SERUM 4.4 MEQ/L (3.5-5.1); TOTAL PROTEIN 6.6 GM/DL (6.4-8.2)
[2021-11-24] MEDS: LACTOBACILLUS ACIDOPHILUS CAP (BACID) PO SCH (08:33)
[2021-11-24] MEDS: PANTOPRAZOLE 40MG TAB (PROTONIX) PO SCH (08:33)
[2021-11-24] MEDS: ASPIRIN 81MG ENTERIC TABLET PO SCH (08:34)
[2021-11-24] MEDS: GABAPENTIN 300 MG CAP PO SCH (08:34)
[2021-11-24] MEDS: ENOXAPARIN 40MG/0.4ML SYRINGE (J1650 PER 10MG) SC SCH (08:34)
[2021-11-24] MEDS: CETIRIZINE (ZyrTEC) 10 MG TAB PO SCH (08:35)
[2021-11-24] MEDS: FERROUS SULFATE 325MG TAB PO SCH (08:35)
[2021-11-24] MEDS: METOPROLOL TART 50 MG TAB PO SCH (08:35)
[2021-11-24] MEDS: MAGNESIUM OXIDE 400MG TAB (MAG-OX) PO SCH (08:35)
[2021-11-24 08:36] VITALS: BP 166/77
[2021-11-24] MEDS: CLOPIDOGREL 75 MG TAB PO SCH (08:36)
[2021-11-24] MEDS: ISOSORBIDE MON. (IMDUR) 60 MG XR TAB PO SCH (08:36)
[2021-11-24] MEDS: DONEPEZIL 5 MG TAB PO SCH (08:36)
[2021-11-24] MEDS: EZETIMIBE 10MG TABLET (ZETIA) PO SCH (08:36)
[2021-11-24] MEDS: VENLAFAXINE **XR** 75MG CAPSULE PO SCH (08:37)
[2021-11-24] MEDS: NORCO, ANEXSIA 5/325MG TABLET (HYDROcodone/ACETAMINOPHEN) PO PRN (08:37)
[2021-11-24] MEDS: INSULIN LISPRO (NovoLOG) PER UNIT SC SCH ×2 (08:38→12:08)
[2021-11-24] MEDS ORDERED: LEVEMIR (INSULIN DETEMIR) 1 UNITS/0.01ML SC SCH (09:00)
[2021-11-24] MEDS ORDERED: CEFU50TA PO (10:30)
[2021-11-24 14:00] VITALS: BP 130/60
== END 2021-11-24 15:40 | disposition home or self-care (01) | DRG 623 ==
LOC: M ED 14:40 → EDBD 14:40 → M ED INP 22:20 → ENRESERV 11-22 02:55 → M 4MAIN 11-22 12:12
PROVIDERS: ADMIT Family Medicine; ATTEND Internal Medicine
PROC: 0LBW0ZZ Excision of Left Foot Tendon, Open Approach (ICD-10-PCS; principal; 2021-11-22)
PROC: B246ZZZ Ultrasonography of Right and Left Heart (ICD-10-PCS; 2021-11-22)
DX: E11.69 Type 2 diabetes mellitus with other specified complication (principal); M86.9 Osteomyelitis, unspecified; L03.032 Cellulitis of left toe; I25.10 Atherosclerotic heart disease of native coronary artery without angina pectoris; Z95.5 Presence of coronary angioplasty implant and graft; G47.33 Obstructive sleep apnea (adult) (pediatric); N18.9 Chronic kidney disease, unspecified; E11.22 Type 2 diabetes mellitus with diabetic chronic kidney disease; G40.909 Epilepsy, unspecified, not intractable, without status epilepticus; E78.5 Hyperlipidemia, unspecified; F32.A Depression, unspecified; F41.9 Anxiety disorder, unspecified; L97.529 Non-pressure chronic ulcer of other part of left foot with unspecified severity; E11.621 Type 2 diabetes mellitus with foot ulcer; Z90.49 Acquired absence of other specified parts of digestive tract; Z96.653 Presence of artificial knee joint, bilateral; I12.9 Hypertensive chronic kidney disease with stage 1 through stage 4 chronic kidney disease, or unspecified chronic kidney disease; K21.9 Gastro-esophageal reflux disease without esophagitis; Z20.822 Contact with and (suspected) exposure to COVID-19; Z79.82 Long term (current) use of aspirin; Z79.84 Long term (current) use of oral hypoglycemic drugs; Z79.4 Long term (current) use of insulin; Z79.899 Other long term (current) drug therapy; Z88.8 Allergy status to other drugs, medicaments and biological substances; E11.65 Type 2 diabetes mellitus with hyperglycemia

== ENCOUNTER 2021-12-03 09:39 | Inpatient (IN) | payer MEDICARE, MEDICAID ==
[~2021-12-03] VITALS: Ht 162.6 cm; Wt 112.3 kg
[~2021-12-03 09:39] MED LIST changes: +BACITAB PO; +ICOS1CAP PO; +METF-838 PO; +NITR4TASL SL; +NYST-13 EXT; +VITA200010 PO
[2021-12-03 10:26] LABS: BASO # 0.1 10^3/uL (0.0-0.2); BASO % 0.6 % (0.0-1.0); EOS # 0.2 10^3/uL (0.0-0.5); EOS % 2.3 % (0.0-3.0); HEMATOCRIT 33.9 % (36.0-47.0); HEMOGLOBIN 10.5 g/dl (12.0-15.5); LYMPH # 3.3 10^3/uL (1.5-5.0); LYMPH % 32.7 % (24.0-44.0); MEAN CORPUSCULAR HEMOGLOBIN 30.3 pg (27.0-33.0); MEAN CORPUSCULAR VOLUME 97.7 fl (80.0-96.0); MONO # 0.4 10^3/uL (0.0-0.8); MONO % 3.5 % (2.0-8.0); NEUTROPHILS # 6.1 10^3/uL (1.5-8.5); NEUTROPHILS % 60.6 % (36.0-66.0); PLATELET COUNT, AUTOMATED 348 10^3/uL (150-450); RED BLOOD COUNT 3.47 10^6/uL (4.00-5.40); WHITE BLOOD COUNT 10.1 10^3/uL (4.0-10.0)
[2021-12-03 10:55] LABS: C REACTIVE PROTEIN QUANTITATIV 2.57 MG/DL (0.00-0.30); CALCIUM LEVEL 8.8 MG/DL (8.5-10.1); CREATININE FOR GFR 1.43 MG/DL (0.55-1.30); ERYTHROCYTE SEDIMENTATION RATE 77 mm/hr (0-30); POTASSIUM SERUM 5.2 MEQ/L (3.5-5.1)
[2021-12-03] MEDS ORDERED: NS 1,000 ML IV ONE (11:30)
[2021-12-03] MEDS ORDERED: HumuLIN R (REGULAR) INSULIN (NovoLIN R) **100U/ML** PER UNIT IV ONE (12:00)
[2021-12-03 12:05] LABS: VENOUS BASE EXCESS -7.1 (-2.0-2.0); VENOUS HCO3 20.4 MEQ/L (23.0-27.0); VENOUS O2 SATURATION 79.1 % (60.0-80.0); VENOUS PARTIAL PRESSURE CO2 49.7 mmHg (38.0-50.0); VENOUS PARTIAL PRESSURE O2 46.7 mmHg (30.0-50.0); VENOUS PH 7.232 UNITS (7.330-7.430); VENOUS STANDARD HCO3 18.4 MEQ/L
[2021-12-03] MEDS ORDERED: CALCIUM CARBONATE 500 MG CHEW U/D PO ONE (12:45)
[2021-12-03 12:56] LABS: ALBUMIN 2.8 GM/DL (3.2-5.2); ALT/SGPT 22 U/L (12-78); BILIRUBIN,DIRECT < 0.1 MG/DL (0.0-0.2); BILIRUBIN,TOTAL 0.2 MG/DL (0.2-1.0); LIPASE 1354 U/L (73-393); TOTAL PROTEIN 7.4 GM/DL (6.4-8.2)
[2021-12-03] MEDS ORDERED: ISOVUE-370 76% 100ML VIAL As Ordered ONE (13:57)
[2021-12-03] MEDS ORDERED: NS 300 ML IV SCH (14:15)
[2021-12-03] MEDS ORDERED: CEFU1TAB22 PO (14:29)
[2021-12-03] MEDS ORDERED: NYST1POW9 TOP (14:29)
[2021-12-03] MEDS ORDERED: HOME MED LIST COMPLETE! XX SCH (14:30)
[2021-12-03] MEDS ORDERED: NITROGLYCERIN 0.4 MG SUBL TABLET SL PRN (15:10)
[2021-12-03] MEDS ORDERED: GLUCOSE 4GM CHEW TABLET PO PRN (15:50)
[2021-12-03] MEDS ORDERED: GLUCAGON INJ 1MG VIAL SC PRN (15:50)
[2021-12-03] MEDS ORDERED: DEXTROSE 50% 50 ML SYRINGE IV PRN (15:50)
[2021-12-03] MEDS: GABAPENTIN 300 MG CAP PO SCH ×2 (16:00→21:55)
[2021-12-03] MEDS ORDERED: GABAPENTIN 300 MG CAP PO SCH (16:00)
[2021-12-03 16:32] LABS: RSV AMPLIFICATION NEGATIVE (NEGATIVE)
[2021-12-03] MEDS ORDERED: NS 600 ML IV SCH (17:00)
[2021-12-03 17:30] VITALS: BP 124/64
[2021-12-03] MEDS: INSULIN LISPRO (NovoLOG) PER UNIT SC SCH ×2 (17:30→21:00)
[2021-12-03] MEDS ORDERED: metFORMIN XR 500MG TAB *GLUCOPHAGE XR PO SCH (18:00)
[2021-12-03] MEDS: cefTRIAXone SOD 2 GM in D5W MINI-BAG PLUS 50 ML IV SCH (19:02)
[2021-12-03] MEDS: ZONISAMIDE 100 MG CAP (ZONEGRAN) PO SCH (21:54)
[2021-12-03] MEDS: HEPARIN SOD (PORCINE) 5000UNITS/ML 1ML VIAL/SYRINGE SC SCH (21:54)
[2021-12-03] MEDS: ATORVASTATIN 20 MG TAB PO SCH (21:55)
[2021-12-03] MEDS: MAGNESIUM OXIDE 400MG TAB (MAG-OX) PO SCH (21:55)
[2021-12-03] MEDS: CETIRIZINE (ZyrTEC) 10 MG TAB PO SCH (21:55)
[2021-12-03] MEDS: NYSTATIN 100,000 UNITS/GM TOPICAL PWD 15 GM TOP SCH (21:55)
[2021-12-03] MEDS: FERROUS SULFATE 325MG TAB PO SCH (21:55)
[2021-12-03] MEDS: METOPROLOL TART 50 MG TAB PO SCH (21:56)
[2021-12-03 22:00] VITALS: BP 154/79
[2021-12-03] MEDS: ACETAMINOPHEN 650MG ER TAB (TYLENOL ARTHRITIS) PO PRN (22:00)
[2021-12-04] MEDS: HEPARIN SOD (PORCINE) 5000UNITS/ML 1ML VIAL/SYRINGE SC SCH ×2 (05:26→14:10)
[2021-12-04 06:00] VITALS: BP 160/106
[2021-12-04 06:42] LABS: HEMATOCRIT 34.7 % (36.0-47.0); HEMOGLOBIN 10.6 g/dl (12.0-15.5); MEAN CORPUSCULAR HEMOGLOBIN 30.5 pg (27.0-33.0); MEAN CORPUSCULAR HGB CONC 30.5 g/dl (32.0-36.5); MEAN CORPUSCULAR VOLUME 99.7 fl (80.0-96.0); PLATELET COUNT, AUTOMATED 332 10^3/uL (150-450); RED BLOOD COUNT 3.48 10^6/uL (4.00-5.40); WHITE BLOOD COUNT 9.3 10^3/uL (4.0-10.0)
[2021-12-04 07:11] LABS: CALCIUM LEVEL 9.6 MG/DL (8.5-10.1); CREATININE FOR GFR 1.22 MG/DL (0.55-1.30); POTASSIUM SERUM 5.3 MEQ/L (3.5-5.1)
[2021-12-04] MEDS: INSULIN LISPRO (NovoLOG) PER UNIT SC SCH ×4 (07:30→21:08)
[2021-12-04] MEDS ORDERED: FUROSEMIDE 40 MG TAB PO ONE (07:55)
[2021-12-04] MEDS: VENLAFAXINE **XR** 75MG CAPSULE PO SCH (08:38)
[2021-12-04] MEDS: PANTOPRAZOLE 40MG TAB (PROTONIX) PO SCH (08:39)
[2021-12-04] MEDS: ASPIRIN 81MG ENTERIC TABLET PO SCH (08:39)
[2021-12-04] MEDS: EZETIMIBE 10MG TABLET (ZETIA) PO SCH (08:39)
[2021-12-04] MEDS: ACETAMINOPHEN 650MG ER TAB (TYLENOL ARTHRITIS) PO PRN (08:39)
[2021-12-04] MEDS: LACTOBACILLUS ACIDOPHILUS CAP (BACID) PO SCH (08:39)
[2021-12-04] MEDS: GABAPENTIN 300 MG CAP PO SCH ×3 (08:39→21:09)
[2021-12-04] MEDS: CLOPIDOGREL 75 MG TAB PO SCH (08:40)
[2021-12-04] MEDS: MAGNESIUM OXIDE 400MG TAB (MAG-OX) PO SCH ×2 (08:40→21:09)
[2021-12-04] MEDS: ISOSORBIDE MON. (IMDUR) 60MG XR TAB PO SCH (08:41)
[2021-12-04] MEDS: METOPROLOL TART 50 MG TAB PO SCH ×2 (08:42→21:09)
[2021-12-04] MEDS: NYSTATIN 100,000 UNITS/GM TOPICAL PWD 15 GM TOP SCH ×2 (08:43→21:10)
[2021-12-04] MEDS: LIDOCAINE 5% (LIDODERM) PATCH TD SCH (09:00)
[2021-12-04] MEDS ORDERED: VENLAFAXINE 37.5 MG TAB PO SCH (09:00)
[2021-12-04] MEDS: oxyCODONE 5MG TAB PO PRN ×3 (10:32→21:15)
[2021-12-04] MEDS ORDERED: MORPHINE 2 MG/ML 1ML VIAL IV PRN (10:40)
[2021-12-04] MEDS ORDERED: ACETAMINOPHEN 500 MG TAB PO SCH (12:00)
[2021-12-04 14:40] VITALS: BP 123/63
[2021-12-04] MEDS: cefTRIAXone SOD 2 GM in D5W MINI-BAG PLUS 50 ML IV SCH (17:12)
[2021-12-04] MEDS: ACETAMINOPHEN 500 MG TAB PO SCH (17:14)
[2021-12-04 20:43] VITALS: BP 117/63
[2021-12-04] MEDS: **NOTE PATIENT COMMENT** MISC XX SCH (21:00)
[2021-12-04] MEDS: LEVEMIR (INSULIN DETEMIR) 1 UNITS/0.01ML SC SCH (21:08)
[2021-12-04] MEDS: FERROUS SULFATE 325MG TAB PO SCH (21:08)
[2021-12-04] MEDS: CETIRIZINE (ZyrTEC) 10 MG TAB PO SCH (21:08)
[2021-12-04] MEDS: ZONISAMIDE 100 MG CAP (ZONEGRAN) PO SCH (21:08)
[2021-12-04] MEDS: ATORVASTATIN 20 MG TAB PO SCH (21:09)
[2021-12-05] VITALS (7 sets, daily range): BP systolic 130–158; BP diastolic 70–84
[2021-12-05] MEDS: ACETAMINOPHEN 500 MG TAB PO SCH ×4 (00:07→17:09)
[2021-12-05] MEDS: oxyCODONE 5MG TAB PO PRN ×2 (05:19→11:25)
[2021-12-05 06:56] LABS: HEMATOCRIT 32.5 % (36.0-47.0); HEMOGLOBIN 9.9 g/dl (12.0-15.5); MEAN CORPUSCULAR HEMOGLOBIN 29.7 pg (27.0-33.0); MEAN CORPUSCULAR HGB CONC 30.5 g/dl (32.0-36.5); MEAN CORPUSCULAR VOLUME 97.6 fl (80.0-96.0); PLATELET COUNT, AUTOMATED 338 10^3/uL (150-450); RED BLOOD COUNT 3.33 10^6/uL (4.00-5.40); WHITE BLOOD COUNT 7.9 10^3/uL (4.0-10.0)
[2021-12-05 07:24] LABS: CALCIUM LEVEL 9.1 MG/DL (8.5-10.1); CREATININE FOR GFR 1.3 MG/DL (0.55-1.30); GLOMERULAR FILTRATION RATE 44.6 (>51)
[2021-12-05] MEDS: INSULIN LISPRO (NovoLOG) PER UNIT SC SCH ×4 (07:30→21:00)
[2021-12-05] MEDS: LIDOCAINE 5% (LIDODERM) PATCH TD SCH (09:00)
[2021-12-05] MEDS: ASPIRIN 81MG ENTERIC TABLET PO SCH (09:00)
[2021-12-05] MEDS: MAGNESIUM OXIDE 400MG TAB (MAG-OX) PO SCH ×2 (09:18→21:12)
[2021-12-05] MEDS: ISOSORBIDE MON. (IMDUR) 60MG XR TAB PO SCH (09:18)
[2021-12-05] MEDS: PANTOPRAZOLE 40MG TAB (PROTONIX) PO SCH (09:18)
[2021-12-05] MEDS: VENLAFAXINE **XR** 75MG CAPSULE PO SCH (09:19)
[2021-12-05] MEDS: GABAPENTIN 300 MG CAP PO SCH ×3 (09:19→21:13)
[2021-12-05] MEDS: LACTOBACILLUS ACIDOPHILUS CAP (BACID) PO SCH (09:20)
[2021-12-05] MEDS: EZETIMIBE 10MG TABLET (ZETIA) PO SCH (09:20)
[2021-12-05] MEDS: LEVEMIR (INSULIN DETEMIR) 1 UNITS/0.01ML SC SCH ×2 (09:21→21:14)
[2021-12-05] MEDS: METOPROLOL TART 50 MG TAB PO SCH ×2 (10:08→21:13)
[2021-12-05] MEDS: NYSTATIN 100,000 UNITS/GM TOPICAL PWD 15 GM TOP SCH ×2 (10:14→21:14)
[2021-12-05] MEDS: CEFEPIME HCL 2 GM in D5W MINI-BAG PLUS 50 ML IV SCH (12:12)
[2021-12-05] MEDS: VANCOMYCIN HCL 1,000 MG, VIAL MATE ADAPTER 1 EACH in NS 250 ML IV SCH ×2 (13:34→15:22)
[2021-12-05] MEDS ORDERED: BUPIVACAINE HCL 0.5% 30ML VIAL As Ordered ONE (16:42)
[2021-12-05] MEDS ORDERED: LIDOCAINE 1% MDV 20ML VIAL As Ordered ONE (16:42)
[2021-12-05] MEDS ORDERED: fentaNYL 100 MCG/2 ML INJECTION As Ordered ONE (17:37)
[2021-12-05] MEDS ORDERED: MIDAZOLAM INJ 2MG/2ML VIAL (J2250 PER 1MG) As Ordered ONE (17:37)
[2021-12-05] MEDS ORDERED: propofoL 200 MG/20 ML VIAL As Ordered ONE (17:38)
[2021-12-05] MEDS ORDERED: LIDOCAINE 2% 100MG/5ML SDV (FOR ANES.) As Ordered ONE (17:38)
[2021-12-05] MEDS ORDERED: ONDANSETRON 4MG 2ML VIAL As Ordered ONE (17:38)
[2021-12-05] MEDS ORDERED: dexameTHASONE 4 MG/ML 1ML VIAL (J1100 PER 1MG) As Ordered ONE (17:38)
[2021-12-05] MEDS: FERROUS SULFATE 325MG TAB PO SCH (21:12)
[2021-12-05] MEDS: ATORVASTATIN 20 MG TAB PO SCH (21:12)
[2021-12-05] MEDS: CETIRIZINE (ZyrTEC) 10 MG TAB PO SCH (21:12)
[2021-12-05] MEDS: ZONISAMIDE 100 MG CAP (ZONEGRAN) PO SCH (21:13)
[2021-12-05] MEDS: **NOTE PATIENT COMMENT** MISC XX SCH (21:14)
[2021-12-06] MEDS: CEFEPIME HCL 2 GM in D5W MINI-BAG PLUS 50 ML IV SCH ×2 (00:14→12:36)
[2021-12-06] MEDS: ACETAMINOPHEN 500 MG TAB PO SCH ×4 (00:14→17:47)
[2021-12-06 00:50] VITALS: BP 135/69
[2021-12-06 02:00] VITALS: BP 136/74
[2021-12-06] MEDS: oxyCODONE 5MG TAB PO PRN ×4 (02:50→17:48)
[2021-12-06 06:00] VITALS: BP 149/73
[2021-12-06 06:35] LABS: HEMATOCRIT 33.9 % (36.0-47.0); HEMOGLOBIN 10.5 g/dl (12.0-15.5); MEAN CORPUSCULAR HEMOGLOBIN 30.6 pg (27.0-33.0); MEAN CORPUSCULAR VOLUME 98.8 fl (80.0-96.0); PLATELET COUNT, AUTOMATED 334 10^3/uL (150-450); RED BLOOD COUNT 3.43 10^6/uL (4.00-5.40); WHITE BLOOD COUNT 9.8 10^3/uL (4.0-10.0)
[2021-12-06 07:18] LABS: CALCIUM LEVEL 8.9 MG/DL (8.5-10.1); CREATININE FOR GFR 1.27 MG/DL (0.55-1.30); GLOMERULAR FILTRATION RATE 45.9 (>51); POTASSIUM SERUM 4.9 MEQ/L (3.5-5.1); VANCOMYCIN RANDOM 15.1 UG/ML
[2021-12-06] MEDS ORDERED: VANCOMYCIN HCL 750 MG, VIAL MATE ADAPTER 1 EACH in D5W 250 ML IV SCH ×2 (08:00→09:00)
[2021-12-06] MEDS: EZETIMIBE 10MG TABLET (ZETIA) PO SCH (08:23)
[2021-12-06] MEDS: MAGNESIUM OXIDE 400MG TAB (MAG-OX) PO SCH ×2 (08:23→21:53)
[2021-12-06] MEDS: GABAPENTIN 300 MG CAP PO SCH ×3 (08:23→21:52)
[2021-12-06] MEDS: LACTOBACILLUS ACIDOPHILUS CAP (BACID) PO SCH (08:23)
[2021-12-06] MEDS: VENLAFAXINE **XR** 75MG CAPSULE PO SCH (08:23)
[2021-12-06] MEDS: ASPIRIN 81MG ENTERIC TABLET PO SCH (08:23)
[2021-12-06] MEDS: PANTOPRAZOLE 40MG TAB (PROTONIX) PO SCH (08:24)
[2021-12-06] MEDS: LEVEMIR (INSULIN DETEMIR) 1 UNITS/0.01ML SC SCH (08:24)
[2021-12-06] MEDS: INSULIN LISPRO (NovoLOG) PER UNIT SC SCH ×4 (08:25→22:07)
[2021-12-06] MEDS: METOPROLOL TART 50 MG TAB PO SCH ×2 (08:25→21:56)
[2021-12-06] MEDS: ISOSORBIDE MON. (IMDUR) 60MG XR TAB PO SCH (08:25)
[2021-12-06] MEDS: NYSTATIN 100,000 UNITS/GM TOPICAL PWD 15 GM TOP SCH ×2 (08:26→21:54)
[2021-12-06] MEDS: LIDOCAINE 5% (LIDODERM) PATCH TD SCH (08:26)
[2021-12-06] MEDS: CLOPIDOGREL 75 MG TAB PO SCH (09:42)
[2021-12-06 10:00] VITALS: BP 150/74
[2021-12-06] MEDS: HEPARIN SOD (PORCINE) 5000UNITS/ML 1ML VIAL/SYRINGE SC SCH ×2 (13:29→21:51)
[2021-12-06 14:00] VITALS: BP 125/67
[2021-12-06] MEDS ORDERED: LEVEMIR (INSULIN DETEMIR) 1 UNITS/0.01ML SC SCH (21:00)
[2021-12-06] MEDS: ZONISAMIDE 100 MG CAP (ZONEGRAN) PO SCH (21:52)
[2021-12-06] MEDS: ATORVASTATIN 20 MG TAB PO SCH (21:52)
[2021-12-06] MEDS: FERROUS SULFATE 325MG TAB PO SCH (21:52)
[2021-12-06 21:54] VITALS: BP 150/86
[2021-12-06] MEDS: CETIRIZINE (ZyrTEC) 10 MG TAB PO SCH (21:54)
[2021-12-06] MEDS: **NOTE PATIENT COMMENT** MISC XX SCH (21:54)
[2021-12-07] MEDS: ACETAMINOPHEN 500 MG TAB PO SCH ×2 (00:06→06:08)
[2021-12-07] MEDS: CEFEPIME HCL 2 GM in D5W MINI-BAG PLUS 50 ML IV SCH (00:07)
[2021-12-07 05:21] VITALS: BP 163/82
[2021-12-07] MEDS: HEPARIN SOD (PORCINE) 5000UNITS/ML 1ML VIAL/SYRINGE SC SCH ×3 (06:08→21:57)
[2021-12-07 06:40] LABS: HEMATOCRIT 31.8 % (36.0-47.0); HEMOGLOBIN 9.7 g/dl (12.0-15.5); MEAN CORPUSCULAR HEMOGLOBIN 29.9 pg (27.0-33.0); MEAN CORPUSCULAR HGB CONC 30.5 g/dl (32.0-36.5); MEAN CORPUSCULAR VOLUME 98.1 fl (80.0-96.0); PLATELET COUNT, AUTOMATED 318 10^3/uL (150-450); RED BLOOD COUNT 3.24 10^6/uL (4.00-5.40); WHITE BLOOD COUNT 8.5 10^3/uL (4.0-10.0)
[2021-12-07 07:20] LABS: ALBUMIN 2.5 GM/DL (3.2-5.2); ALT/SGPT 23 U/L (12-78); BILIRUBIN,TOTAL < 0.1 MG/DL (0.2-1.0); BLOOD UREA NITROGEN 31 MG/DL (7-18); CALCIUM LEVEL 8.7 MG/DL (8.5-10.1); CARBON DIOXIDE LEVEL 28 MEQ/L (21-32); CHLORIDE LEVEL 105 MEQ/L (98-107); CREATININE FOR GFR 1.47 MG/DL (0.55-1.30); GLOMERULAR FILTRATION RATE 38.7 (>51); GLUCOSE, FASTING 301 MG/DL (70-100); POTASSIUM SERUM 5.3 MEQ/L (3.5-5.1); SODIUM LEVEL 136 MEQ/L (136-145); TOTAL PROTEIN 6.8 GM/DL (6.4-8.2)
[2021-12-07] MEDS ORDERED: VANCOMYCIN HCL 750 MG, VIAL MATE ADAPTER 1 EACH in D5W 250 ML IV ONE (08:00)
[2021-12-07] MEDS ORDERED: VANCOMYCIN HCL 750 MG, VIAL MATE ADAPTER 1 EACH in D5W 250 ML IV SCH (08:00)
[2021-12-07] MEDS: METOPROLOL TART 50 MG TAB PO SCH ×2 (08:30→21:59)
[2021-12-07] MEDS: INSULIN LISPRO (NovoLOG) PER UNIT SC SCH ×4 (08:31→21:57)
[2021-12-07] MEDS: ASPIRIN 81MG ENTERIC TABLET PO SCH (08:31)
[2021-12-07] MEDS: LACTOBACILLUS ACIDOPHILUS CAP (BACID) PO SCH (08:32)
[2021-12-07] MEDS: MAGNESIUM OXIDE 400MG TAB (MAG-OX) PO SCH ×2 (08:32→21:58)
[2021-12-07] MEDS: EZETIMIBE 10MG TABLET (ZETIA) PO SCH (08:32)
[2021-12-07] MEDS: GABAPENTIN 300 MG CAP PO SCH ×3 (08:32→21:58)
[2021-12-07] MEDS: ISOSORBIDE MON. (IMDUR) 60MG XR TAB PO SCH (08:32)
[2021-12-07] MEDS: CLOPIDOGREL 75 MG TAB PO SCH (08:32)
[2021-12-07] MEDS: VENLAFAXINE **XR** 75MG CAPSULE PO SCH (08:32)
[2021-12-07] MEDS: PANTOPRAZOLE 40MG TAB (PROTONIX) PO SCH (08:32)
[2021-12-07] MEDS: NYSTATIN 100,000 UNITS/GM TOPICAL PWD 15 GM TOP SCH ×2 (08:33→21:59)
[2021-12-07] MEDS: LIDOCAINE 5% (LIDODERM) PATCH TD SCH (08:33)
[2021-12-07] MEDS ORDERED: ACETAMINOPHEN TAB 650MG DOSE (2X325MG) PO PRN (08:35)
[2021-12-07 09:00] VITALS: BP 143/73
[2021-12-07] MEDS ORDERED: VANCOMYCIN HCL 500 MG in D5W MINI-BAG PLUS 100 ML IV SCH (09:00)
[2021-12-07] MEDS: LEVEMIR (INSULIN DETEMIR) 1 UNITS/0.01ML SC SCH (09:48)
[2021-12-07] MEDS: amLODIPine 5 MG TAB PO SCH (09:48)
[2021-12-07] MEDS: PERCOCET 5MG/325MG TAB PO PRN ×2 (09:49→17:30)
[2021-12-07] MEDS ORDERED: MOM 30ML SUSPENSION UDC PO PRN (13:40)
[2021-12-07 14:00] VITALS: BP 116/75
[2021-12-07] MEDS: LevoFLOXacin 750 MG TABLET PO SCH (14:31)
[2021-12-07] MEDS: DOCUSATE SODIUM 100MG CAPSULE PO SCH ×2 (14:32→21:57)
[2021-12-07] MEDS ORDERED: LEVEMIR (INSULIN DETEMIR) 1 UNITS/0.01ML SC SCH (21:00)
[2021-12-07] MEDS: **NOTE PATIENT COMMENT** MISC XX SCH (21:00)
[2021-12-07] MEDS ORDERED: DONEPEZIL 5 MG TAB PO SCH (21:00)
[2021-12-07] MEDS ORDERED: SENNA 8.6 MG TAB (SENOKOT) PO SCH (21:00)
[2021-12-07] MEDS: ATORVASTATIN 20 MG TAB PO SCH (21:57)
[2021-12-07] MEDS: ZONISAMIDE 100 MG CAP (ZONEGRAN) PO SCH (21:58)
[2021-12-07] MEDS: CETIRIZINE (ZyrTEC) 10 MG TAB PO SCH (21:58)
[2021-12-07] MEDS: FERROUS SULFATE 325MG TAB PO SCH (21:58)
[2021-12-07 22:00] VITALS: BP 146/72
[2021-12-08] MEDS: HEPARIN SOD (PORCINE) 5000UNITS/ML 1ML VIAL/SYRINGE SC SCH (06:02)
[2021-12-08] MEDS: LevoFLOXacin 750 MG TABLET PO SCH (06:02)
[2021-12-08 06:19] VITALS: BP 154/53
[2021-12-08] MEDS: PERCOCET 5MG/325MG TAB PO PRN ×2 (06:21→10:22)
[2021-12-08 07:03] LABS: HEMATOCRIT 33.6 % (36.0-47.0); MEAN CORPUSCULAR HEMOGLOBIN 29.2 pg (27.0-33.0); MEAN CORPUSCULAR HGB CONC 29.8 g/dl (32.0-36.5); MEAN CORPUSCULAR VOLUME 98.2 fl (80.0-96.0); PLATELET COUNT, AUTOMATED 329 10^3/uL (150-450); RED BLOOD COUNT 3.42 10^6/uL (4.00-5.40); WHITE BLOOD COUNT 8.5 10^3/uL (4.0-10.0)
[2021-12-08] MEDS ORDERED: PERCOCET PO (07:37)
[2021-12-08] MEDS ORDERED: SENN18TA PO (07:37)
[2021-12-08] MEDS ORDERED: COLA100C5 PO (07:37)
[2021-12-08 07:43] LABS: ALBUMIN 2.5 GM/DL (3.2-5.2); BILIRUBIN,TOTAL 0.2 MG/DL (0.2-1.0); CALCIUM LEVEL 8.6 MG/DL (8.5-10.1); CREATININE FOR GFR 1.45 MG/DL (0.55-1.30); GLOMERULAR FILTRATION RATE 39.3 (>51); POTASSIUM SERUM 4.9 MEQ/L (3.5-5.1); TOTAL PROTEIN 7.1 GM/DL (6.4-8.2)
[2021-12-08] MEDS: LEVEMIR (INSULIN DETEMIR) 1 UNITS/0.01ML SC SCH (08:17)
[2021-12-08] MEDS: INSULIN LISPRO (NovoLOG) PER UNIT SC SCH ×2 (08:19→12:35)
[2021-12-08] MEDS: DOCUSATE SODIUM 100MG CAPSULE PO SCH (08:19)
[2021-12-08] MEDS: EZETIMIBE 10MG TABLET (ZETIA) PO SCH (08:19)
[2021-12-08] MEDS: GABAPENTIN 300 MG CAP PO SCH (08:19)
[2021-12-08] MEDS: VENLAFAXINE **XR** 75MG CAPSULE PO SCH (08:19)
[2021-12-08] MEDS: ASPIRIN 81MG ENTERIC TABLET PO SCH (08:20)
[2021-12-08] MEDS: PANTOPRAZOLE 40MG TAB (PROTONIX) PO SCH (08:20)
[2021-12-08] MEDS: LACTOBACILLUS ACIDOPHILUS CAP (BACID) PO SCH (08:20)
[2021-12-08] MEDS: MAGNESIUM OXIDE 400MG TAB (MAG-OX) PO SCH (08:20)
[2021-12-08] MEDS: CLOPIDOGREL 75 MG TAB PO SCH (08:20)
[2021-12-08] MEDS: METOPROLOL TART 50 MG TAB PO SCH (08:21)
[2021-12-08] MEDS: ISOSORBIDE MON. (IMDUR) 60MG XR TAB PO SCH (08:21)
[2021-12-08 08:22] VITALS: BP 154/53
[2021-12-08] MEDS: amLODIPine 5 MG TAB PO SCH (08:22)
[2021-12-08] MEDS: LIDOCAINE 5% (LIDODERM) PATCH TD SCH (08:23)
[2021-12-08] MEDS: NYSTATIN 100,000 UNITS/GM TOPICAL PWD 15 GM TOP SCH (08:24)
[2021-12-08 14:00] VITALS: BP 154/80
== END 2021-12-08 15:30 | disposition home or self-care (01) | DRG 617 ==
LOC: M ED 09:39 → M ED INP 13:26 → ENRESERV 16:40 → M MS5PR 17:15
PROVIDERS: ADMIT Student in an Organized Health Care Education/Training Program; ATTEND Internal Medicine
PROC: 0Y6Q0Z0 Detachment at Left 1st Toe, Complete, Open Approach (ICD-10-PCS; principal; 2021-12-05 11:34)
DX: E11.69 Type 2 diabetes mellitus with other specified complication (principal); M86.8X7 Other osteomyelitis, ankle and foot; L03.116 Cellulitis of left lower limb; N17.9 Acute kidney failure, unspecified; K21.9 Gastro-esophageal reflux disease without esophagitis; I12.9 Hypertensive chronic kidney disease with stage 1 through stage 4 chronic kidney disease, or unspecified chronic kidney disease; E11.22 Type 2 diabetes mellitus with diabetic chronic kidney disease; I25.10 Atherosclerotic heart disease of native coronary artery without angina pectoris; E78.5 Hyperlipidemia, unspecified; N18.30 Chronic kidney disease, stage 3 unspecified; E11.622 Type 2 diabetes mellitus with other skin ulcer; L97.529 Non-pressure chronic ulcer of other part of left foot with unspecified severity; B96.20 Unspecified Escherichia coli [E. coli] as the cause of diseases classified elsewhere; G40.909 Epilepsy, unspecified, not intractable, without status epilepticus; F32.A Depression, unspecified; Z79.4 Long term (current) use of insulin; E11.42 Type 2 diabetes mellitus with diabetic polyneuropathy; E11.621 Type 2 diabetes mellitus with foot ulcer; Z79.899 Other long term (current) drug therapy; Z79.82 Long term (current) use of aspirin; Z88.8 Allergy status to other drugs, medicaments and biological substances; F41.9 Anxiety disorder, unspecified; Z95.2 Presence of prosthetic heart valve; Z96.653 Presence of artificial knee joint, bilateral; B96.5 Pseudomonas (aeruginosa) (mallei) (pseudomallei) as the cause of diseases classified elsewhere

== ENCOUNTER 2022-01-11 17:56 | Inpatient (IN) | payer MEDICARE, MEDICAID ==
[~2022-01-11] VITALS: Ht 162.6 cm; Wt 110.1 kg
[~2022-01-11 17:56] MED LIST changes: +CEFU1TAB22 PO; +COLA100C5 PO; +NYST1POW9 TOP; +PERCOCET PO; +SENN18TA PO
[2022-01-11] MEDS ORDERED: ONDANSETRON 4MG 2ML VIAL IV ONE (20:20)
[2022-01-11 20:56] LABS: BASO # 0.1 10^3/uL (0.0-0.2); BASO % 0.4 % (0.0-1.0); EOS # 0.2 10^3/uL (0.0-0.5); EOS % 1.1 % (0.0-3.0); HEMATOCRIT 35.7 % (36.0-47.0); HEMOGLOBIN 11.4 g/dl (12.0-15.5); LYMPH # 3.6 10^3/uL (1.5-5.0); LYMPH % 22.3 % (24.0-44.0); MEAN CORPUSCULAR HEMOGLOBIN 30.5 pg (27.0-33.0); MEAN CORPUSCULAR HGB CONC 31.9 g/dl (32.0-36.5); MEAN CORPUSCULAR VOLUME 95.5 fl (80.0-96.0); MONO # 0.8 10^3/uL (0.0-0.8); MONO % 5.1 % (2.0-8.0); NEUTROPHILS # 11.2 10^3/uL (1.5-8.5); NEUTROPHILS % 70.5 % (36.0-66.0); PLATELET COUNT, AUTOMATED 310 10^3/uL (150-450); RED BLOOD COUNT 3.74 10^6/uL (4.00-5.40); WHITE BLOOD COUNT 15.9 10^3/uL (4.0-10.0)
[2022-01-11] MEDS ORDERED: ACETAMINOPHEN 1000MG 100ML IV BTL (OFIRMEV) (J0131 PER 10MG) IV ONE (21:00)
[2022-01-11 21:27] LABS: C REACTIVE PROTEIN QUANTITATIV 1.36 MG/DL (0.00-0.30); CALCIUM LEVEL 8.9 MG/DL (8.8-10.2); CREATININE FOR GFR 1.45 MG/DL (0.55-1.30); GLOMERULAR FILTRATION RATE 39.2 (>45); POTASSIUM SERUM 5.2 MEQ/L (3.5-5.1)
[2022-01-11 21:28] LABS: RSV AMPLIFICATION NEGATIVE (NEGATIVE)
[2022-01-11 21:58] LABS: ERYTHROCYTE SEDIMENTATION RATE 65 mm/hr (0-30)
[2022-01-11] MEDS ORDERED: PIPERACILLIN/TAZOBACTAM SOD 3.375 GM in D5W MINI-BAG PLUS 50 ML IV ONE (22:30)
[2022-01-11] MEDS ORDERED: VANCOMYCIN HCL IV ONE (22:30)
[2022-01-11] MEDS ORDERED: FLUID PLACE HOLDER IV ONE (22:30)
[2022-01-11] MEDS ORDERED: HOME MED LIST COMPLETE! XX SCH (22:55)
[2022-01-11] MEDS ORDERED: SENN8.6T58 PO (22:55)
[2022-01-11] MEDS ORDERED: VANCOMYCIN HCL 1,000 MG, VIAL MATE ADAPTER 1 EACH in NS 250 ML IV ONE (23:00)
[2022-01-12] MEDS ORDERED: VANCOMYCIN HCL 1,000 MG, VIAL MATE ADAPTER 1 EACH in NS 250 ML IV ONE ×3
[2022-01-12] MEDS ORDERED: NITROGLYCERIN 0.4 MG SUBL TABLET SL PRN (01:55)
[2022-01-12] MEDS ORDERED: DEXTROSE 50% 50 ML SYRINGE IV PRN (02:15)
[2022-01-12] MEDS ORDERED: GLUCAGON INJ 1MG VIAL SC PRN (02:15)
[2022-01-12] MEDS ORDERED: GLUCOSE 4GM CHEW TABLET PO PRN (02:15)
[2022-01-12 02:40] VITALS: BP 106/66
[2022-01-12] MEDS: D5W/0.45% SODIUM CHLORIDE 1,000 ML IV SCH ×3 (04:50→17:05)
[2022-01-12] MEDS: PIPERACILLIN/TAZOBACTAM SOD 3.375 GM in D5W MINI-BAG PLUS 50 ML IV SCH ×2 (04:52→11:14)
[2022-01-12] MEDS: HEPARIN SOD (PORCINE) 5000UNITS/ML 1ML VIAL/SYRINGE SC SCH ×3 (05:09→20:21)
[2022-01-12] MEDS: INSULIN LISPRO (NovoLOG) PER UNIT SC SCH ×4 (05:25→20:30)
[2022-01-12 06:00] VITALS: BP 146/64
[2022-01-12] MEDS ORDERED: INSULIN LISPRO (NovoLOG) PER UNIT SC SCH ×2 (07:30→21:00)
[2022-01-12] MEDS: ASPIRIN 81MG ENTERIC TABLET PO SCH (09:38)
[2022-01-12] MEDS: LACTOBACILLUS ACIDOPHILUS CAP (BACID) PO SCH (09:38)
[2022-01-12] MEDS: MAGNESIUM OXIDE 400MG TAB (MAG-OX) PO SCH ×2 (09:38→20:21)
[2022-01-12] MEDS: SENNA 8.6 MG TAB (SENOKOT) PO SCH (09:39)
[2022-01-12] MEDS: CLOPIDOGREL 75 MG TAB PO SCH (09:39)
[2022-01-12] MEDS: GABAPENTIN 300 MG CAP PO SCH ×3 (09:40→20:17)
[2022-01-12] MEDS: VENLAFAXINE **XR** 75MG CAPSULE PO SCH ×2 (09:41→09:49)
[2022-01-12] MEDS: ISOSORBIDE MON. (IMDUR) 60MG XR TAB PO SCH (09:41)
[2022-01-12] MEDS: METOPROLOL TART 50 MG TAB PO SCH ×2 (09:42→20:17)
[2022-01-12] MEDS: EZETIMIBE 10MG TABLET (ZETIA) PO SCH (09:42)
[2022-01-12] MEDS: NYSTATIN 100,000 UNITS/GM TOPICAL PWD 15 GM TOP SCH ×2 (09:43→20:22)
[2022-01-12] MEDS: CETIRIZINE (ZyrTEC) 10 MG TAB PO SCH (09:43)
[2022-01-12] MEDS: PANTOPRAZOLE 40MG TAB (PROTONIX) PO SCH (09:45)
[2022-01-12] MEDS: ACETAMINOPHEN 650MG ER TAB (TYLENOL ARTHRITIS) PO PRN ×2 (09:49→20:22)
[2022-01-12] MEDS ORDERED: CEFEPIME HCL 1 GM in D5W MINI-BAG PLUS 50 ML IV SCH (11:40)
[2022-01-12 14:00] VITALS: BP 113/61
[2022-01-12] MEDS: metroNIDAZOLE (FLAGYL) 500MG TABLET PO SCH ×2 (14:59→20:22)
[2022-01-12] MEDS: CEFEPIME HCL 2 GM in D5W MINI-BAG PLUS 50 ML IV SCH (17:07)
[2022-01-12] MEDS ORDERED: VANCOMYCIN HCL 750 MG, VIAL MATE ADAPTER 1 EACH in D5W 250 ML IV SCH (18:00)
[2022-01-12] MEDS ORDERED: VANCOMYCIN HCL 500 MG in D5W MINI-BAG PLUS 100 ML IV SCH (19:00)
[2022-01-12] MEDS: ZONISAMIDE 100 MG CAP (ZONEGRAN) PO SCH (20:17)
[2022-01-12] MEDS: FERROUS SULFATE 325MG TAB PO SCH (20:17)
[2022-01-12] MEDS: ATORVASTATIN 20 MG TAB PO SCH (20:17)
[2022-01-12 22:00] VITALS: BP 134/73
[2022-01-13] MEDS: metroNIDAZOLE (FLAGYL) 500MG TABLET PO SCH ×3 (05:12→20:33)
[2022-01-13] MEDS: CEFEPIME HCL 2 GM in D5W MINI-BAG PLUS 50 ML IV SCH ×2 (05:12→17:50)
[2022-01-13] MEDS: HEPARIN SOD (PORCINE) 5000UNITS/ML 1ML VIAL/SYRINGE SC SCH ×3 (05:12→20:34)
[2022-01-13 06:00] VITALS: BP 131/73
[2022-01-13 06:37] LABS: BASO # 0.1 10^3/uL (0.0-0.2); BASO % 0.9 % (0.0-1.0); EOS # 0.1 10^3/uL (0.0-0.5); EOS % 1.3 % (0.0-3.0); HEMATOCRIT 32.2 % (36.0-47.0); LYMPH # 2.2 10^3/uL (1.5-5.0); MEAN CORPUSCULAR HEMOGLOBIN 29.9 pg (27.0-33.0); MEAN CORPUSCULAR HGB CONC 31.1 g/dl (32.0-36.5); MEAN CORPUSCULAR VOLUME 96.4 fl (80.0-96.0); MONO # 0.5 10^3/uL (0.0-0.8); MONO % 5.8 % (2.0-8.0); NEUTROPHILS # 5.3 10^3/uL (1.5-8.5); NEUTROPHILS % 64.6 % (36.0-66.0); PLATELET COUNT, AUTOMATED 237 10^3/uL (150-450); RED BLOOD COUNT 3.34 10^6/uL (4.00-5.40); WHITE BLOOD COUNT 8.2 10^3/uL (4.0-10.0)
[2022-01-13 07:22] LABS: CALCIUM LEVEL 8.7 MG/DL (8.8-10.2); CREATININE FOR GFR 1.4 MG/DL (0.55-1.30); GLOMERULAR FILTRATION RATE 40.8 (>45); MAGNESIUM LEVEL 1.6 MG/DL (1.8-2.4); POTASSIUM SERUM 4.7 MEQ/L (3.5-5.1)
[2022-01-13] MEDS ORDERED: MAG SULF 1GM/100ML (MAG RUN) 1 GM in IV 1 EA IV ONE ×2 (08:00→12:00)
[2022-01-13] MEDS ORDERED: guaiFENesin ER 600 MG TAB PO PRN (08:05)
[2022-01-13] MEDS: SENNA 8.6 MG TAB (SENOKOT) PO SCH (08:43)
[2022-01-13] MEDS: INSULIN LISPRO (NovoLOG) PER UNIT SC SCH ×4 (08:43→20:35)
[2022-01-13] MEDS: GABAPENTIN 300 MG CAP PO SCH ×3 (08:44→20:33)
[2022-01-13] MEDS: LACTOBACILLUS ACIDOPHILUS CAP (BACID) PO SCH (08:44)
[2022-01-13] MEDS: CETIRIZINE (ZyrTEC) 10 MG TAB PO SCH (08:44)
[2022-01-13] MEDS: PANTOPRAZOLE 40MG TAB (PROTONIX) PO SCH (08:44)
[2022-01-13] MEDS: ASPIRIN 81MG ENTERIC TABLET PO SCH (08:44)
[2022-01-13] MEDS: CLOPIDOGREL 75 MG TAB PO SCH (08:44)
[2022-01-13] MEDS: MAGNESIUM OXIDE 400MG TAB (MAG-OX) PO SCH ×2 (08:44→20:33)
[2022-01-13] MEDS: METOPROLOL TART 50 MG TAB PO SCH ×2 (08:45→20:34)
[2022-01-13] MEDS: EZETIMIBE 10MG TABLET (ZETIA) PO SCH (08:45)
[2022-01-13] MEDS: ISOSORBIDE MON. (IMDUR) 60MG XR TAB PO SCH (08:45)
[2022-01-13] MEDS: NYSTATIN 100,000 UNITS/GM TOPICAL PWD 15 GM TOP SCH ×2 (08:46→20:39)
[2022-01-13] MEDS: VENLAFAXINE **XR** 75MG CAPSULE PO SCH ×2 (08:48→08:49)
[2022-01-13] MEDS ORDERED: NS 1,000 ML IV SCH (10:00)
[2022-01-13 14:00] VITALS: BP 142/80
[2022-01-13] MEDS: FERROUS SULFATE 325MG TAB PO SCH (20:33)
[2022-01-13] MEDS: ZONISAMIDE 100 MG CAP (ZONEGRAN) PO SCH (20:33)
[2022-01-13 20:34] VITALS: BP 142/80
[2022-01-13] MEDS: ATORVASTATIN 20 MG TAB PO SCH (20:34)
[2022-01-13] MEDS: ACETAMINOPHEN 650MG ER TAB (TYLENOL ARTHRITIS) PO PRN (20:34)
[2022-01-13] MEDS ORDERED: LEVEMIR (INSULIN DETEMIR) 1 UNITS/0.01ML SC SCH (21:00)
[2022-01-13 22:00] VITALS: BP 158/91
[2022-01-14] MEDS: CEFEPIME HCL 2 GM in D5W MINI-BAG PLUS 50 ML IV SCH (05:25)
[2022-01-14] MEDS: HEPARIN SOD (PORCINE) 5000UNITS/ML 1ML VIAL/SYRINGE SC SCH (05:25)
[2022-01-14] MEDS: metroNIDAZOLE (FLAGYL) 500MG TABLET PO SCH (05:25)
[2022-01-14 06:00] VITALS: BP 150/84
[2022-01-14 06:33] LABS: BASO # 0.1 10^3/uL (0.0-0.2); EOS # 0.2 10^3/uL (0.0-0.5); EOS % 2.2 % (0.0-3.0); HEMATOCRIT 33.2 % (36.0-47.0); HEMOGLOBIN 10.3 g/dl (12.0-15.5); LYMPH % 29.4 % (24.0-44.0); MEAN CORPUSCULAR HEMOGLOBIN 29.9 pg (27.0-33.0); MEAN CORPUSCULAR VOLUME 96.2 fl (80.0-96.0); MONO # 0.4 10^3/uL (0.0-0.8); MONO % 5.7 % (2.0-8.0); NEUTROPHILS # 4.2 10^3/uL (1.5-8.5); PLATELET COUNT, AUTOMATED 273 10^3/uL (150-450); RED BLOOD COUNT 3.45 10^6/uL (4.00-5.40); WHITE BLOOD COUNT 6.8 10^3/uL (4.0-10.0)
[2022-01-14 07:11] LABS: ERYTHROCYTE SEDIMENTATION RATE 71 mm/hr (0-30)
[2022-01-14 07:12] LABS: CALCIUM LEVEL 8.6 MG/DL (8.8-10.2); CREATININE FOR GFR 1.32 MG/DL (0.55-1.30); GLOMERULAR FILTRATION RATE 43.7 (>45); POTASSIUM SERUM 4.6 MEQ/L (3.5-5.1)
[2022-01-14] MEDS: EZETIMIBE 10MG TABLET (ZETIA) PO SCH (07:39)
[2022-01-14] MEDS: INSULIN LISPRO (NovoLOG) PER UNIT SC SCH ×2 (07:39→12:18)
[2022-01-14] MEDS: METOPROLOL TART 50 MG TAB PO SCH (07:40)
[2022-01-14] MEDS: LACTOBACILLUS ACIDOPHILUS CAP (BACID) PO SCH (07:40)
[2022-01-14] MEDS: GABAPENTIN 300 MG CAP PO SCH (07:40)
[2022-01-14] MEDS: VENLAFAXINE **XR** 75MG CAPSULE PO SCH ×2 (07:40→07:42)
[2022-01-14] MEDS: ASPIRIN 81MG ENTERIC TABLET PO SCH (07:40)
[2022-01-14] MEDS: CLOPIDOGREL 75 MG TAB PO SCH (07:41)
[2022-01-14] MEDS: MAGNESIUM OXIDE 400MG TAB (MAG-OX) PO SCH (07:41)
[2022-01-14] MEDS: CETIRIZINE (ZyrTEC) 10 MG TAB PO SCH (07:41)
[2022-01-14] MEDS: ISOSORBIDE MON. (IMDUR) 60MG XR TAB PO SCH (07:42)
[2022-01-14] MEDS: PANTOPRAZOLE 40MG TAB (PROTONIX) PO SCH (07:42)
[2022-01-14] MEDS: SENNA 8.6 MG TAB (SENOKOT) PO SCH (07:43)
[2022-01-14] MEDS: NYSTATIN 100,000 UNITS/GM TOPICAL PWD 15 GM TOP SCH (07:43)
[2022-01-14] MEDS ORDERED: AUGMENTIN 875 MG TAB PO SCH (09:00)
[2022-01-14] MEDS ORDERED: AMOX875T2 PO (10:20)
[2022-01-14] MEDS ORDERED: CVS1CAP2 PO (10:48)
[2022-01-14 14:00] VITALS: BP 148/81
[2022-01-14] MEDS ORDERED: LEVEMIR (INSULIN DETEMIR) 1 UNITS/0.01ML SC SCH (21:00)
== END 2022-01-14 16:50 | disposition home or self-care (01) | DRG 565 ==
LOC: M ED 17:56 → M ED INP 23:21 → M MS5PR 01-12 02:39
PROVIDERS: ADMIT Family Medicine; ATTEND Student in an Organized Health Care Education/Training Program
PROC: 0Y9N3ZZ Drainage of Left Foot, Percutaneous Approach (ICD-10-PCS; principal; 2022-01-12)
DX: T87.44 Infection of amputation stump, left lower extremity (principal); L03.116 Cellulitis of left lower limb; N17.9 Acute kidney failure, unspecified; L02.91 Cutaneous abscess, unspecified; K86.1 Other chronic pancreatitis; G40.909 Epilepsy, unspecified, not intractable, without status epilepticus; I25.10 Atherosclerotic heart disease of native coronary artery without angina pectoris; Z79.4 Long term (current) use of insulin; I12.9 Hypertensive chronic kidney disease with stage 1 through stage 4 chronic kidney disease, or unspecified chronic kidney disease; K21.9 Gastro-esophageal reflux disease without esophagitis; F41.8 Other specified anxiety disorders; N18.30 Chronic kidney disease, stage 3 unspecified; E78.5 Hyperlipidemia, unspecified; E11.22 Type 2 diabetes mellitus with diabetic chronic kidney disease; B96.20 Unspecified Escherichia coli [E. coli] as the cause of diseases classified elsewhere; E83.42 Hypomagnesemia; F32.A Depression, unspecified; Z88.8 Allergy status to other drugs, medicaments and biological substances; Z79.82 Long term (current) use of aspirin; Z79.899 Other long term (current) drug therapy; Z96.653 Presence of artificial knee joint, bilateral; Z95.2 Presence of prosthetic heart valve; E11.51 Type 2 diabetes mellitus with diabetic peripheral angiopathy without gangrene; Y83.5 Amputation of limb(s) as the cause of abnormal reaction of the patient, or of later complication, without mention of misadventure at the time of the procedure

== ENCOUNTER 2022-03-10 12:35 | Inpatient (IN) | payer MEDICARE, MEDICAID ==
[~2022-03-10] VITALS: Ht 162.6 cm; Wt 108.3 kg
[~2022-03-10 12:35] MED LIST changes: +AMOX875T2 PO; +CVS1CAP2 PO; +SENN8.6T58 PO
[2022-03-10 13:16] LABS: BASO # 0.1 10^3/uL (0.0-0.2); BASO % 0.8 % (0.0-1.0); EOS # 0.4 10^3/uL (0.0-0.5); EOS % 3.1 % (0.0-3.0); HEMATOCRIT 36.1 % (36.0-47.0); HEMOGLOBIN 11.6 g/dl (12.0-15.5); LYMPH # 3.3 10^3/uL (1.5-5.0); LYMPH % 25.3 % (24.0-44.0); MEAN CORPUSCULAR HEMOGLOBIN 30.4 pg (27.0-33.0); MEAN CORPUSCULAR HGB CONC 32.1 g/dl (32.0-36.5); MEAN CORPUSCULAR VOLUME 94.5 fl (80.0-96.0); MONO # 0.5 10^3/uL (0.0-0.8); MONO % 3.8 % (2.0-8.0); NEUTROPHILS # 8.7 10^3/uL (1.5-8.5); NEUTROPHILS % 66.5 % (36.0-66.0); PLATELET COUNT, AUTOMATED 321 10^3/uL (150-450); RED BLOOD COUNT 3.82 10^6/uL (4.00-5.40); WHITE BLOOD COUNT 13.1 10^3/uL (4.0-10.0)
[2022-03-10 13:44] LABS: ERYTHROCYTE SEDIMENTATION RATE 59 mm/hr (0-30)
[2022-03-10 14:04] LABS: C REACTIVE PROTEIN QUANTITATIV 1.37 MG/DL (0.00-0.30); CALCIUM LEVEL 8.8 MG/DL (8.8-10.2); CREATININE FOR GFR 1.69 MG/DL (0.55-1.30); GLOMERULAR FILTRATION RATE 32.9 (>45); POTASSIUM SERUM 5.1 MEQ/L (3.5-5.1)
[2022-03-10] MEDS ORDERED: HumuLIN R (REGULAR) INSULIN (NovoLIN R) **100U/ML** PER UNIT IV ONE (14:20)
[2022-03-10] MEDS ORDERED: ceFAZolin SOD 1 GM in D5W MINI-BAG PLUS 50 ML IV ONE (14:35)
[2022-03-10] MEDS ORDERED: INSULIN LISPRO (NovoLOG) PER UNIT SC STA ×2 (14:58→15:56)
[2022-03-10] MEDS ORDERED: LEVEMIR (INSULIN DETEMIR) 1 UNITS/0.01ML SC ONE ×2 (15:00→19:00)
[2022-03-10] MEDS ORDERED: NS 1,000 ML IV ONE (15:00)
[2022-03-10] MEDS: NS 1,000 ML IV SCH ×3 (15:00→21:00)
[2022-03-10] MEDS ORDERED: GLUCAGON INJ 1MG VIAL SC PRN (15:05)
[2022-03-10] MEDS ORDERED: GLUCOSE 4GM CHEW TABLET PO PRN (15:05)
[2022-03-10] MEDS ORDERED: DEXTROSE 50% 50 ML SYRINGE IV PRN (15:05)
[2022-03-10 15:19] LABS: RSV AMPLIFICATION NEGATIVE (NEGATIVE)
[2022-03-10] MEDS ORDERED: LISI10TA22 PO (15:27)
[2022-03-10 15:57] LABS: HEMOGLOBIN A1c 13.3 %
[2022-03-10] MEDS ORDERED: HOME MED LIST COMPLETE! XX SCH (16:20)
[2022-03-10] MEDS: INSULIN LISPRO (NovoLOG) PER UNIT SC SCH ×2 (17:36→21:00)
[2022-03-10] MEDS ORDERED: LevoFLOXacin IV 750 MG in IV 1 EA IV SCH (18:00)
[2022-03-10] MEDS ORDERED: SENNA 8.6 MG TAB (SENOKOT) PO PRN (18:20)
[2022-03-10] MEDS ORDERED: INSULIN LISPRO (NovoLOG) PER UNIT SC ONE (18:30)
[2022-03-10 21:14] LABS: ACETONE/KETONE 0.65 MG/DL (<2.81); CALCIUM LEVEL 8.5 MG/DL (8.8-10.2); CREATININE FOR GFR 1.42 MG/DL (0.55-1.30); GLOMERULAR FILTRATION RATE 40.2 (>45); POTASSIUM SERUM 4.4 MEQ/L (3.5-5.1)
[2022-03-10] MEDS: GABAPENTIN 300 MG CAP PO SCH (21:33)
[2022-03-10] MEDS: MAGNESIUM OXIDE 400MG TAB (MAG-OX) PO SCH (21:34)
[2022-03-10] MEDS: METOPROLOL TART 50 MG TAB PO SCH (21:34)
[2022-03-10] MEDS: ATORVASTATIN 20 MG TAB PO SCH (21:36)
[2022-03-10] MEDS: FERROUS SULFATE 325MG TAB PO SCH (21:36)
[2022-03-10] MEDS: NYSTATIN 100,000 UNITS/GM TOPICAL PWD 15 GM TOP SCH (22:19)
[2022-03-10] MEDS: ZONISAMIDE 100 MG CAP (ZONEGRAN) PO SCH (22:19)
[2022-03-10] MEDS: CIPRODEX OTIC SUSP 7.5ML AS SCH (22:19)
[2022-03-11] MEDS: NS 1,000 ML IV SCH (03:26)
[2022-03-11 04:44] VITALS: BP 140/79
[2022-03-11 06:03] LABS: BASO # 0.1 10^3/uL (0.0-0.2); BASO % 0.8 % (0.0-1.0); EOS # 0.5 10^3/uL (0.0-0.5); EOS % 4.8 % (0.0-3.0); HEMATOCRIT 36.8 % (36.0-47.0); HEMOGLOBIN 11.6 g/dl (12.0-15.5); LYMPH # 3.2 10^3/uL (1.5-5.0); LYMPH % 31.6 % (24.0-44.0); MEAN CORPUSCULAR HEMOGLOBIN 30.1 pg (27.0-33.0); MEAN CORPUSCULAR HGB CONC 31.5 g/dl (32.0-36.5); MEAN CORPUSCULAR VOLUME 95.3 fl (80.0-96.0); MONO # 0.5 10^3/uL (0.0-0.8); MONO % 5.1 % (2.0-8.0); NEUTROPHILS # 5.8 10^3/uL (1.5-8.5); NEUTROPHILS % 57.4 % (36.0-66.0); PLATELET COUNT, AUTOMATED 271 10^3/uL (150-450); RED BLOOD COUNT 3.86 10^6/uL (4.00-5.40); WHITE BLOOD COUNT 10.1 10^3/uL (4.0-10.0)
[2022-03-11 06:27] LABS: CALCIUM LEVEL 8.5 MG/DL (8.8-10.2); CREATININE FOR GFR 1.21 MG/DL (0.55-1.30); GLOMERULAR FILTRATION RATE 48.3 (>45); POTASSIUM SERUM 4.1 MEQ/L (3.5-5.1)
[2022-03-11] MEDS ORDERED: metFORMIN XR 500MG TAB *GLUCOPHAGE XR PO SCH (09:00)
[2022-03-11] MEDS: INSULIN LISPRO (NovoLOG) PER UNIT SC SCH ×7 (09:20→21:14)
[2022-03-11] MEDS: LEVEMIR (INSULIN DETEMIR) 1 UNITS/0.01ML SC SCH ×2 (09:21→21:14)
[2022-03-11] MEDS: ENOXAPARIN 40MG/0.4ML SYRINGE (J1650 PER 10MG) SC SCH (09:23)
[2022-03-11] MEDS: METOPROLOL TART 50 MG TAB PO SCH ×2 (09:24→21:05)
[2022-03-11] MEDS: VENLAFAXINE **XR** 75MG CAPSULE PO SCH ×2 (09:24)
[2022-03-11] MEDS: EZETIMIBE 10MG TABLET (ZETIA) PO SCH (09:25)
[2022-03-11] MEDS: ASPIRIN 81MG ENTERIC TABLET PO SCH (09:25)
[2022-03-11] MEDS: MAGNESIUM OXIDE 400MG TAB (MAG-OX) PO SCH ×2 (09:25→21:02)
[2022-03-11] MEDS: CLOPIDOGREL 75 MG TAB PO SCH (09:25)
[2022-03-11] MEDS: GABAPENTIN 300 MG CAP PO SCH ×3 (09:25→21:02)
[2022-03-11] MEDS: ACETAMINOPHEN 650MG ER TAB (TYLENOL ARTHRITIS) PO PRN (09:25)
[2022-03-11] MEDS: CETIRIZINE (ZyrTEC) 10 MG TAB PO SCH (09:25)
[2022-03-11] MEDS: PANTOPRAZOLE 40MG TAB (PROTONIX) PO SCH (09:25)
[2022-03-11] MEDS: NYSTATIN 100,000 UNITS/GM TOPICAL PWD 15 GM TOP SCH ×2 (09:26→21:04)
[2022-03-11] MEDS: CIPRODEX OTIC SUSP 7.5ML AS SCH ×2 (09:26→21:03)
[2022-03-11] MEDS: ISOSORBIDE MON. (IMDUR) 60MG XR TAB PO SCH (09:27)
[2022-03-11] MEDS ORDERED: PERCOCET 5MG/325MG TAB PO ONE (10:25)
[2022-03-11] MEDS: LevoFLOXacin IV 750 MG in IV 1 EA IV SCH (17:07)
[2022-03-11 18:00] VITALS: BP 128/74
[2022-03-11] MEDS: ATORVASTATIN 20 MG TAB PO SCH (21:02)
[2022-03-11] MEDS: FERROUS SULFATE 325MG TAB PO SCH (21:02)
[2022-03-11] MEDS: ZONISAMIDE 100 MG CAP (ZONEGRAN) PO SCH (21:14)
[2022-03-11] MEDS: PERCOCET 5MG/325MG TAB PO PRN (21:15)
[2022-03-11 22:00] VITALS: BP 127/71
[2022-03-12 05:22] VITALS: BP 152/88
[2022-03-12 05:59] LABS: BASO # 0.1 10^3/uL (0.0-0.2); BASO % 0.8 % (0.0-1.0); EOS # 0.4 10^3/uL (0.0-0.5); HEMATOCRIT 34.3 % (36.0-47.0); HEMOGLOBIN 10.8 g/dl (12.0-15.5); LYMPH # 3.1 10^3/uL (1.5-5.0); MEAN CORPUSCULAR HEMOGLOBIN 30.3 pg (27.0-33.0); MEAN CORPUSCULAR HGB CONC 31.5 g/dl (32.0-36.5); MEAN CORPUSCULAR VOLUME 96.1 fl (80.0-96.0); MONO # 0.4 10^3/uL (0.0-0.8); MONO % 5.3 % (2.0-8.0); NEUTROPHILS # 4.3 10^3/uL (1.5-8.5); NEUTROPHILS % 51.4 % (36.0-66.0); PLATELET COUNT, AUTOMATED 273 10^3/uL (150-450); RED BLOOD COUNT 3.57 10^6/uL (4.00-5.40); WHITE BLOOD COUNT 8.4 10^3/uL (4.0-10.0)
[2022-03-12 06:24] LABS: CALCIUM LEVEL 8.7 MG/DL (8.8-10.2); CREATININE FOR GFR 1.41 MG/DL (0.55-1.30); GLOMERULAR FILTRATION RATE 40.5 (>45); POTASSIUM SERUM 4.6 MEQ/L (3.5-5.1)
[2022-03-12] MEDS: VENLAFAXINE **XR** 75MG CAPSULE PO SCH ×2 (10:27→10:34)
[2022-03-12] MEDS: MAGNESIUM OXIDE 400MG TAB (MAG-OX) PO SCH ×2 (10:28→20:58)
[2022-03-12] MEDS: CLOPIDOGREL 75 MG TAB PO SCH (10:28)
[2022-03-12] MEDS: PANTOPRAZOLE 40MG TAB (PROTONIX) PO SCH (10:28)
[2022-03-12] MEDS: EZETIMIBE 10MG TABLET (ZETIA) PO SCH (10:28)
[2022-03-12] MEDS: LEVEMIR (INSULIN DETEMIR) 1 UNITS/0.01ML SC SCH ×2 (10:29→20:58)
[2022-03-12] MEDS: ASPIRIN 81MG ENTERIC TABLET PO SCH (10:29)
[2022-03-12] MEDS: GABAPENTIN 300 MG CAP PO SCH ×3 (10:29→20:58)
[2022-03-12] MEDS: NYSTATIN 100,000 UNITS/GM TOPICAL PWD 15 GM TOP SCH ×2 (10:30→20:59)
[2022-03-12] MEDS: INSULIN LISPRO (NovoLOG) PER UNIT SC SCH ×7 (10:30→20:58)
[2022-03-12] MEDS: CIPRODEX OTIC SUSP 7.5ML AS SCH ×2 (10:30→20:59)
[2022-03-12] MEDS: ENOXAPARIN 40MG/0.4ML SYRINGE (J1650 PER 10MG) SC SCH (10:31)
[2022-03-12] MEDS: CETIRIZINE (ZyrTEC) 10 MG TAB PO SCH (10:31)
[2022-03-12] MEDS: METOPROLOL TART 50 MG TAB PO SCH ×2 (10:34→20:58)
[2022-03-12] MEDS: ISOSORBIDE MON. (IMDUR) 60MG XR TAB PO SCH (10:35)
[2022-03-12] MEDS: PERCOCET 5MG/325MG TAB PO PRN ×2 (10:41→20:59)
[2022-03-12 14:00] VITALS: BP 125/77
[2022-03-12] MEDS: LevoFLOXacin IV 750 MG in IV 1 EA IV SCH (17:34)
[2022-03-12 20:09] VITALS: BP 138/72
[2022-03-12] MEDS: FERROUS SULFATE 325MG TAB PO SCH (20:57)
[2022-03-12] MEDS: ATORVASTATIN 20 MG TAB PO SCH (20:57)
[2022-03-12] MEDS: ZONISAMIDE 100 MG CAP (ZONEGRAN) PO SCH (20:58)
[2022-03-13] MEDS: ACETAMINOPHEN 650MG ER TAB (TYLENOL ARTHRITIS) PO PRN ×2 (00:06→09:41)
[2022-03-13 05:14] VITALS: BP 147/63
[2022-03-13 06:40] LABS: BASO # 0.1 10^3/uL (0.0-0.2); BASO % 0.6 % (0.0-1.0); EOS # 0.4 10^3/uL (0.0-0.5); EOS % 3.9 % (0.0-3.0); HEMATOCRIT 32.9 % (36.0-47.0); HEMOGLOBIN 10.3 g/dl (12.0-15.5); LYMPH # 3.4 10^3/uL (1.5-5.0); LYMPH % 36.3 % (24.0-44.0); MEAN CORPUSCULAR HEMOGLOBIN 30.4 pg (27.0-33.0); MEAN CORPUSCULAR HGB CONC 31.3 g/dl (32.0-36.5); MEAN CORPUSCULAR VOLUME 97.1 fl (80.0-96.0); MONO # 0.5 10^3/uL (0.0-0.8); MONO % 5.5 % (2.0-8.0); NEUTROPHILS % 53.3 % (36.0-66.0); PLATELET COUNT, AUTOMATED 270 10^3/uL (150-450); RED BLOOD COUNT 3.39 10^6/uL (4.00-5.40); WHITE BLOOD COUNT 9.4 10^3/uL (4.0-10.0)
[2022-03-13 07:09] LABS: CALCIUM LEVEL 8.6 MG/DL (8.8-10.2); CREATININE FOR GFR 1.51 MG/DL (0.55-1.30); GLOMERULAR FILTRATION RATE 37.4 (>45); POTASSIUM SERUM 4.5 MEQ/L (3.5-5.1)
[2022-03-13 08:00] VITALS: BP 124/78
[2022-03-13] MEDS ORDERED: FLUBLOK(EGG FREE)(QUAD)INFLUENZA VACC 0.5ML SYRINGE 18YRS & OLDER IM.IMMUN ONE (09:00)
[2022-03-13] MEDS: VENLAFAXINE **XR** 75MG CAPSULE PO SCH ×2 (09:08→09:09)
[2022-03-13] MEDS: METOPROLOL TART 50 MG TAB PO SCH (09:09)
[2022-03-13] MEDS: CLOPIDOGREL 75 MG TAB PO SCH (09:10)
[2022-03-13] MEDS: INSULIN LISPRO (NovoLOG) PER UNIT SC SCH ×4 (09:39→11:56)
[2022-03-13] MEDS: CIPRODEX OTIC SUSP 7.5ML AS SCH (09:41)
[2022-03-13] MEDS: EZETIMIBE 10MG TABLET (ZETIA) PO SCH (09:42)
[2022-03-13] MEDS: ASPIRIN 81MG ENTERIC TABLET PO SCH (09:42)
[2022-03-13] MEDS: PERCOCET 5MG/325MG TAB PO PRN (09:42)
[2022-03-13] MEDS: GABAPENTIN 300 MG CAP PO SCH (09:42)
[2022-03-13] MEDS: ENOXAPARIN 40MG/0.4ML SYRINGE (J1650 PER 10MG) SC SCH (09:42)
[2022-03-13] MEDS: NYSTATIN 100,000 UNITS/GM TOPICAL PWD 15 GM TOP SCH (09:43)
[2022-03-13] MEDS: LEVEMIR (INSULIN DETEMIR) 1 UNITS/0.01ML SC SCH (09:43)
[2022-03-13] MEDS: PANTOPRAZOLE 40MG TAB (PROTONIX) PO SCH (09:43)
[2022-03-13] MEDS: MAGNESIUM OXIDE 400MG TAB (MAG-OX) PO SCH (09:43)
[2022-03-13] MEDS: CETIRIZINE (ZyrTEC) 10 MG TAB PO SCH (09:43)
[2022-03-13 09:46] VITALS: BP 141/73
[2022-03-13] MEDS: ISOSORBIDE MON. (IMDUR) 60MG XR TAB PO SCH (09:46)
[2022-03-13] MEDS ORDERED: CIPR7.5D2 AS (10:14)
[2022-03-13] MEDS ORDERED: LEVO1TAB40 PO (10:14)
[2022-03-15] MEDS ORDERED: INSUHUMDS SC (01:02)
[2022-03-15] MEDS ORDERED: TOUJ1.2I SC (01:02)
== END 2022-03-13 12:43 | disposition home health service (06) | DRG 863 ==
LOC: M ED 12:35 → M ED INP 14:58 → M MSPAV 03-11 04:39
PROVIDERS: ADMIT General Practice; ATTEND Internal Medicine Nephrology
DX: T81.49XA Infection following a procedure, other surgical site, initial encounter (principal); L03.116 Cellulitis of left lower limb; N17.9 Acute kidney failure, unspecified; Z68.41 Body mass index [BMI] 40.0-44.9, adult; T87.44 Infection of amputation stump, left lower extremity; I12.9 Hypertensive chronic kidney disease with stage 1 through stage 4 chronic kidney disease, or unspecified chronic kidney disease; N18.30 Chronic kidney disease, stage 3 unspecified; K21.9 Gastro-esophageal reflux disease without esophagitis; H66.92 Otitis media, unspecified, left ear; I25.10 Atherosclerotic heart disease of native coronary artery without angina pectoris; G40.909 Epilepsy, unspecified, not intractable, without status epilepticus; F41.9 Anxiety disorder, unspecified; E66.01 Morbid (severe) obesity due to excess calories; E78.5 Hyperlipidemia, unspecified; E11.40 Type 2 diabetes mellitus with diabetic neuropathy, unspecified; E11.65 Type 2 diabetes mellitus with hyperglycemia; F32.A Depression, unspecified; F03.90 Unspecified dementia, unspecified severity, without behavioral disturbance, psychotic disturbance, mood disturbance, and anxiety; Z95.2 Presence of prosthetic heart valve; Z91.14 Patient's other noncompliance with medication regimen; Z79.4 Long term (current) use of insulin; Z79.899 Other long term (current) drug therapy; Z79.82 Long term (current) use of aspirin; Z88.8 Allergy status to other drugs, medicaments and biological substances; Z96.653 Presence of artificial knee joint, bilateral; Y83.5 Amputation of limb(s) as the cause of abnormal reaction of the patient, or of later complication, without mention of misadventure at the time of the procedure

== ENCOUNTER 2022-03-19 17:47 | Inpatient (IN) | payer MEDICARE, MEDICAID ==
[~2022-03-19] VITALS: Ht 162.6 cm; Wt 112.7 kg
[~2022-03-19 17:47] MED LIST changes: +CIPR7.5D2 AS; +LEVO1TAB40 PO
[2022-03-19 19:13] LABS: BASO # 0.1 10^3/uL (0.0-0.2); BASO % 0.9 % (0.0-1.0); EOS # 0.3 10^3/uL (0.0-0.5); EOS % 2.9 % (0.0-3.0); HEMATOCRIT 34.2 % (36.0-47.0); HEMOGLOBIN 10.6 g/dl (12.0-15.5); LYMPH % 37.4 % (24.0-44.0); MEAN CORPUSCULAR HEMOGLOBIN 30.1 pg (27.0-33.0); MEAN CORPUSCULAR VOLUME 97.2 fl (80.0-96.0); MONO # 0.5 10^3/uL (0.0-0.8); MONO % 4.8 % (2.0-8.0); NEUTROPHILS # 5.7 10^3/uL (1.5-8.5); NEUTROPHILS % 53.6 % (36.0-66.0); PLATELET COUNT, AUTOMATED 335 10^3/uL (150-450); RED BLOOD COUNT 3.52 10^6/uL (4.00-5.40); WHITE BLOOD COUNT 10.7 10^3/uL (4.0-10.0)
[2022-03-19] MEDS ORDERED: MORPHINE 2 MG/ML 1ML VIAL IV ONE (19:25)
[2022-03-19 20:33] LABS: C REACTIVE PROTEIN QUANTITATIV 1.8 MG/DL (<1.0); CALCIUM LEVEL 7.9 MG/DL (8.3-10.6); CREATININE FOR GFR 1.4 MG/DL (0.55-1.30); GLOMERULAR FILTRATION RATE 40.8 (>45); POTASSIUM SERUM 6.7 MMOL/L (3.5-5.1)
[2022-03-19] MEDS ORDERED: NORCO, ANEXSIA 5/325MG TABLET (HYDROcodone/ACETAMINOPHEN) PO ONE (20:35)
[2022-03-19] MEDS ORDERED: cefTRIAXone SOD 1 GM in D5W MINI-BAG PLUS 50 ML IV ONE (21:05)
[2022-03-19] MEDS ORDERED: DEXTROSE 50% 50 ML SYRINGE IV ONE (21:05)
[2022-03-19] MEDS ORDERED: HumuLIN R (REGULAR) INSULIN (NovoLIN R) **100U/ML** PER UNIT IV ONE (21:05)
[2022-03-19] MEDS ORDERED: CALCIUM CHLORIDE 10% 1 GM in D5W 100 ML IV ONE (21:20)
[2022-03-19] MEDS ORDERED: ACETAMINOPHEN TAB 650MG DOSE (2X325MG) PO PRN (21:20)
[2022-03-19] MEDS ORDERED: NS 1,000 ML IV SCH (22:20)
[2022-03-19 23:04] LABS: RSV AMPLIFICATION NEGATIVE (NEGATIVE)
[2022-03-19 23:16] LABS: MAGNESIUM LEVEL 1.1 MG/DL (1.8-2.4)
[2022-03-19] MEDS ORDERED: CIPR7.5D5 AS (23:52)
[2022-03-19] MEDS ORDERED: INSUHUMDS SC (23:52)
[2022-03-19] MEDS ORDERED: LEVO1TAB40 PO (23:52)
[2022-03-19] MEDS ORDERED: TOUJ1.2I SC (23:52)
[2022-03-19] MEDS ORDERED: HOME MED LIST COMPLETE! XX SCH (23:55)
[2022-03-20] MEDS ORDERED: NITROGLYCERIN 0.4 MG SUBL TABLET SL PRN
[2022-03-20] MEDS ORDERED: VANCOMYCIN HCL 1,000 MG, VIAL MATE ADAPTER 1 EACH in NS 250 ML IV ONE ×3 (00:15→02:00)
[2022-03-20 02:41] LABS: CALCIUM LEVEL 8.4 MG/DL (8.3-10.6); CREATININE FOR GFR 1.45 MG/DL (0.55-1.30); GLOMERULAR FILTRATION RATE 39.2 (>45); POTASSIUM SERUM 5.4 MMOL/L (3.5-5.1)
[2022-03-20 07:30] LABS: HEMOGLOBIN 11.4 g/dl (12.0-15.5); MEAN CORPUSCULAR HEMOGLOBIN 30.2 pg (27.0-33.0); MEAN CORPUSCULAR HGB CONC 30.8 g/dl (32.0-36.5); MEAN CORPUSCULAR VOLUME 98.1 fl (80.0-96.0); PLATELET COUNT, AUTOMATED 278 10^3/uL (150-450); RED BLOOD COUNT 3.77 10^6/uL (4.00-5.40); WHITE BLOOD COUNT 11.8 10^3/uL (4.0-10.0)
[2022-03-20 08:01] LABS: ALBUMIN 2.8 G/DL (3.2-5.2); BILIRUBIN,TOTAL 0.2 MG/DL (0.3-1.2); CALCIUM LEVEL 8.7 MG/DL (8.3-10.6); CREATININE FOR GFR 1.33 MG/DL (0.55-1.30); GLOMERULAR FILTRATION RATE 43.3 (>45); MAGNESIUM LEVEL 1.1 MG/DL (1.8-2.4); POTASSIUM SERUM 5.2 MMOL/L (3.5-5.1); TOTAL PROTEIN 6.1 G/DL (5.7-8.2)
[2022-03-20 09:00] LABS: BASO % 0.3 % (0.0-1.0); EOS # 0.3 10^3/uL (0.0-0.5); EOS % 2.4 % (0.0-3.0); LYMPH # 2.1 10^3/uL (1.5-5.0); LYMPH % 17.7 % (24.0-44.0); MONO # 0.5 10^3/uL (0.0-0.8); MONO % 4.4 % (2.0-8.0); NEUTROPHILS # 8.8 10^3/uL (1.5-8.5); NEUTROPHILS % 74.8 % (36.0-66.0)
[2022-03-20] MEDS: PANTOPRAZOLE 40MG TAB (PROTONIX) PO SCH (09:21)
[2022-03-20] MEDS: EZETIMIBE 10MG TABLET (ZETIA) PO SCH (09:21)
[2022-03-20] MEDS: VENLAFAXINE **XR** 75MG CAPSULE PO SCH ×2 (09:22)
[2022-03-20] MEDS: FERROUS SULFATE 325MG TAB PO SCH (09:22)
[2022-03-20] MEDS: ENOXAPARIN 40MG/0.4ML SYRINGE (J1650 PER 10MG) SC SCH (09:22)
[2022-03-20] MEDS: GABAPENTIN 300 MG CAP PO SCH ×3 (09:22→20:49)
[2022-03-20] MEDS: ASPIRIN 81MG ENTERIC TABLET PO SCH (09:22)
[2022-03-20] MEDS: CLOPIDOGREL 75 MG TAB PO SCH (09:23)
[2022-03-20] MEDS: ISOSORBIDE MON. (IMDUR) 60MG XR TAB PO SCH (09:23)
[2022-03-20] MEDS: METOPROLOL TART 50 MG TAB PO SCH ×2 (09:23→20:49)
[2022-03-20] MEDS: DICLOFENAC EPOLAMINE 1.3 % PATCH TOP SCH ×2 (10:01→20:50)
[2022-03-20] MEDS: NYSTATIN 100,000 UNITS/GM TOPICAL PWD 15 GM TOP SCH ×2 (10:02→21:00)
[2022-03-20] MEDS: oxyCODONE 5MG TAB PO PRN ×3 (10:02→20:50)
[2022-03-20] MEDS ORDERED: DEXTROSE 50% 50 ML SYRINGE IV PRN (11:10)
[2022-03-20] MEDS ORDERED: GLUCOSE 4GM CHEW TABLET PO PRN (11:10)
[2022-03-20] MEDS ORDERED: GLUCAGON INJ 1MG VIAL SC PRN (11:10)
[2022-03-20] MEDS: DONEPEZIL 5 MG TAB PO SCH (12:14)
[2022-03-20] MEDS: INSULIN LISPRO (NovoLOG) PER UNIT SC SCH ×4 (12:14→20:54)
[2022-03-20 14:48] LABS: CALCIUM LEVEL 8.8 MG/DL (8.3-10.6); CREATININE FOR GFR 1.2 MG/DL (0.55-1.30); GLOMERULAR FILTRATION RATE 48.8 (>45); POTASSIUM SERUM 5.3 MMOL/L (3.5-5.1)
[2022-03-20] MEDS ORDERED: HumuLIN R (REGULAR) INSULIN (NovoLIN R) **100U/ML** PER UNIT IV STA (15:47)
[2022-03-20] MEDS ORDERED: DEXTROSE 50% 50 ML SYRINGE IV STA (15:47)
[2022-03-20] MEDS ORDERED: MAGNESIUM OXIDE 400MG TAB (MAG-OX) PO ONE (15:50)
[2022-03-20 15:51] VITALS: BP 131/62
[2022-03-20 16:30] VITALS: BP 113/61
[2022-03-20] MEDS: VANCOMYCIN HCL 750 MG, VIAL MATE ADAPTER 1 EACH in D5W 250 ML IV SCH (16:39)
[2022-03-20] MEDS: VANCOMYCIN HCL 500 MG in D5W MINI-BAG PLUS 100 ML IV SCH (18:52)
[2022-03-20 20:00] VITALS: BP 135/73
[2022-03-20] MEDS: CETIRIZINE (ZyrTEC) 10 MG TAB PO SCH (20:47)
[2022-03-20] MEDS: ATORVASTATIN 20 MG TAB PO SCH (20:47)
[2022-03-20] MEDS: ZONISAMIDE 100 MG CAP (ZONEGRAN) PO SCH (20:49)
[2022-03-20] MEDS ORDERED: LEVEMIR (INSULIN DETEMIR) 1 UNITS/0.01ML SC SCH (21:00)
[2022-03-21 04:00] VITALS: BP 139/61
[2022-03-21 05:23] LABS: BASO % 0.3 % (0.0-1.0); EOS # 0.4 10^3/uL (0.0-0.5); EOS % 4.9 % (0.0-3.0); HEMATOCRIT 32.9 % (36.0-47.0); HEMOGLOBIN 10.1 g/dl (12.0-15.5); LYMPH # 2.2 10^3/uL (1.5-5.0); LYMPH % 28.3 % (24.0-44.0); MEAN CORPUSCULAR HEMOGLOBIN 30.2 pg (27.0-33.0); MEAN CORPUSCULAR HGB CONC 30.7 g/dl (32.0-36.5); MEAN CORPUSCULAR VOLUME 98.5 fl (80.0-96.0); MONO # 0.4 10^3/uL (0.0-0.8); MONO % 4.7 % (2.0-8.0); NEUTROPHILS # 4.9 10^3/uL (1.5-8.5); NEUTROPHILS % 61.4 % (36.0-66.0); PLATELET COUNT, AUTOMATED 262 10^3/uL (150-450); RED BLOOD COUNT 3.34 10^6/uL (4.00-5.40); WHITE BLOOD COUNT 7.9 10^3/uL (4.0-10.0)
[2022-03-21 06:21] LABS: ALBUMIN 2.4 G/DL (3.2-5.2); BILIRUBIN,TOTAL 0.2 MG/DL (0.3-1.2); CALCIUM LEVEL 8.4 MG/DL (8.3-10.6); CREATININE FOR GFR 1.3 MG/DL (0.55-1.30); GLOMERULAR FILTRATION RATE 44.5 (>45); MAGNESIUM LEVEL 1.1 MG/DL (1.8-2.4); TOTAL PROTEIN 5.7 G/DL (5.7-8.2)
[2022-03-21 07:30] VITALS: BP 143/69
[2022-03-21] MEDS: GABAPENTIN 300 MG CAP PO SCH ×3 (08:27→20:34)
[2022-03-21] MEDS: ASPIRIN 81MG ENTERIC TABLET PO SCH (08:27)
[2022-03-21] MEDS: FERROUS SULFATE 325MG TAB PO SCH (08:27)
[2022-03-21] MEDS: DONEPEZIL 5 MG TAB PO SCH (08:28)
[2022-03-21] MEDS: CLOPIDOGREL 75 MG TAB PO SCH (08:29)
[2022-03-21] MEDS: VENLAFAXINE **XR** 75MG CAPSULE PO SCH ×2 (08:30→08:32)
[2022-03-21] MEDS: PANTOPRAZOLE 40MG TAB (PROTONIX) PO SCH (08:33)
[2022-03-21] MEDS: INSULIN LISPRO (NovoLOG) PER UNIT SC SCH ×4 (08:33→20:36)
[2022-03-21] MEDS: NYSTATIN 100,000 UNITS/GM TOPICAL PWD 15 GM TOP SCH ×2 (08:33→20:35)
[2022-03-21] MEDS: ENOXAPARIN 40MG/0.4ML SYRINGE (J1650 PER 10MG) SC SCH (08:33)
[2022-03-21] MEDS: EZETIMIBE 10MG TABLET (ZETIA) PO SCH (08:34)
[2022-03-21] MEDS: METOPROLOL TART 50 MG TAB PO SCH ×2 (08:34→20:35)
[2022-03-21] MEDS: ISOSORBIDE MON. (IMDUR) 60MG XR TAB PO SCH (08:37)
[2022-03-21] MEDS: DICLOFENAC EPOLAMINE 1.3 % PATCH TOP SCH ×2 (08:41→20:35)
[2022-03-21 11:09] VITALS: BP 132/74
[2022-03-21] MEDS: oxyCODONE 5MG TAB PO PRN (12:31)
[2022-03-21] MEDS: VANCOMYCIN HCL 750 MG, VIAL MATE ADAPTER 1 EACH in D5W 250 ML IV SCH (14:31)
[2022-03-21] MEDS: VANCOMYCIN HCL 500 MG in D5W MINI-BAG PLUS 100 ML IV SCH (15:49)
[2022-03-21 16:03] VITALS: BP 138/67
[2022-03-21 20:00] VITALS: BP 145/70
[2022-03-21] MEDS: CETIRIZINE (ZyrTEC) 10 MG TAB PO SCH (20:34)
[2022-03-21] MEDS: ATORVASTATIN 20 MG TAB PO SCH (20:34)
[2022-03-21] MEDS: ZONISAMIDE 100 MG CAP (ZONEGRAN) PO SCH (20:34)
[2022-03-21 20:35] VITALS: BP 145/70
[2022-03-21] MEDS ORDERED: LEVEMIR (INSULIN DETEMIR) 1 UNITS/0.01ML SC SCH (21:00)
[2022-03-22] MEDS ORDERED: AUGMENTIN 875 MG TAB PO SCH
[2022-03-22 04:00] VITALS: BP 140/62
[2022-03-22 05:24] LABS: BASO % 0.6 % (0.0-1.0); EOS # 0.4 10^3/uL (0.0-0.5); EOS % 5.5 % (0.0-3.0); HEMOGLOBIN 9.9 g/dl (12.0-15.5); LYMPH # 2.1 10^3/uL (1.5-5.0); LYMPH % 30.6 % (24.0-44.0); MEAN CORPUSCULAR HEMOGLOBIN 30.3 pg (27.0-33.0); MEAN CORPUSCULAR HGB CONC 30.9 g/dl (32.0-36.5); MEAN CORPUSCULAR VOLUME 97.9 fl (80.0-96.0); MONO # 0.4 10^3/uL (0.0-0.8); MONO % 5.2 % (2.0-8.0); NEUTROPHILS % 57.5 % (36.0-66.0); PLATELET COUNT, AUTOMATED 263 10^3/uL (150-450); RED BLOOD COUNT 3.27 10^6/uL (4.00-5.40)
[2022-03-22 06:02] LABS: ALBUMIN 2.5 G/DL (3.2-5.2); ALKALINE PHOSPHATASE 111 U/L (46-116); ALT/SGPT 12 U/L (7.0-40); AST/SGOT 10 U/L (<34); BILIRUBIN,TOTAL < 0.2 MG/DL (0.3-1.2); BLOOD UREA NITROGEN 28 MG/DL (9-23); CALCIUM LEVEL 8.2 MG/DL (8.3-10.6); CARBON DIOXIDE LEVEL 27 MMOL/L (20-31); CHLORIDE LEVEL 104 MMOL/L (98-107); GLOMERULAR FILTRATION RATE 48.8 (>45); GLUCOSE, FASTING 309 MG/DL (74-106); MAGNESIUM LEVEL 1.2 MG/DL (1.8-2.4); POTASSIUM SERUM 4.8 MMOL/L (3.5-5.1); SODIUM LEVEL 139 MMOL/L (136-145); TOTAL PROTEIN 5.8 G/DL (5.7-8.2)
[2022-03-22 06:04] LABS: ERYTHROCYTE SEDIMENTATION RATE 79 mm/hr (0-30)
[2022-03-22] MEDS ORDERED: MAGNESIUM OXIDE 400MG TAB (MAG-OX) PO ONE (06:25)
[2022-03-22 07:49] VITALS: BP 148/84
[2022-03-22] MEDS: INSULIN LISPRO (NovoLOG) PER UNIT SC SCH (09:11)
[2022-03-22] MEDS: EZETIMIBE 10MG TABLET (ZETIA) PO SCH (09:12)
[2022-03-22] MEDS: ASPIRIN 81MG ENTERIC TABLET PO SCH (09:12)
[2022-03-22] MEDS: ENOXAPARIN 40MG/0.4ML SYRINGE (J1650 PER 10MG) SC SCH (09:12)
[2022-03-22] MEDS: VENLAFAXINE **XR** 75MG CAPSULE PO SCH ×2 (09:12)
[2022-03-22] MEDS: CLOPIDOGREL 75 MG TAB PO SCH (09:13)
[2022-03-22] MEDS: PANTOPRAZOLE 40MG TAB (PROTONIX) PO SCH (09:13)
[2022-03-22] MEDS: FERROUS SULFATE 325MG TAB PO SCH (09:13)
[2022-03-22] MEDS: METOPROLOL TART 50 MG TAB PO SCH (09:13)
[2022-03-22] MEDS: GABAPENTIN 300 MG CAP PO SCH (09:13)
[2022-03-22] MEDS: DONEPEZIL 5 MG TAB PO SCH (09:13)
[2022-03-22] MEDS: ISOSORBIDE MON. (IMDUR) 60MG XR TAB PO SCH (09:19)
[2022-03-22] MEDS: DICLOFENAC EPOLAMINE 1.3 % PATCH TOP SCH (09:19)
[2022-03-22] MEDS: NYSTATIN 100,000 UNITS/GM TOPICAL PWD 15 GM TOP SCH (09:19)
[2022-03-22] MEDS ORDERED: AMOX875T2 PO (09:30)
[2022-03-22] MEDS ORDERED: PROBCAP14 PO (09:30)
[2022-03-22] MEDS ORDERED: ACET1TAB55 PO (09:38)
== END 2022-03-22 12:55 | disposition home or self-care (01) | DRG 565 ==
LOC: M ED 17:47 → M ED INP 17:48 → INTOOBSV 21:18 → M ED INP 21:18 → UNDOADMOB 21:18 → M PCU 03-20 16:10 → OBSVTOIN 03-21 10:09
PROVIDERS: ADMIT Internal Medicine; ATTEND Internal Medicine
DX: T87.44 Infection of amputation stump, left lower extremity (principal); M86.172 Other acute osteomyelitis, left ankle and foot; Z68.41 Body mass index [BMI] 40.0-44.9, adult; L03.032 Cellulitis of left toe; E11.22 Type 2 diabetes mellitus with diabetic chronic kidney disease; I12.9 Hypertensive chronic kidney disease with stage 1 through stage 4 chronic kidney disease, or unspecified chronic kidney disease; N18.30 Chronic kidney disease, stage 3 unspecified; E66.01 Morbid (severe) obesity due to excess calories; D72.829 Elevated white blood cell count, unspecified; E87.5 Hyperkalemia; I25.10 Atherosclerotic heart disease of native coronary artery without angina pectoris; E78.5 Hyperlipidemia, unspecified; Z88.8 Allergy status to other drugs, medicaments and biological substances; G40.909 Epilepsy, unspecified, not intractable, without status epilepticus; F41.9 Anxiety disorder, unspecified; K21.9 Gastro-esophageal reflux disease without esophagitis; K58.9 Irritable bowel syndrome, unspecified; R07.81 Pleurodynia; G31.84 Mild cognitive impairment of uncertain or unknown etiology; F32.A Depression, unspecified; Z79.82 Long term (current) use of aspirin; Z79.899 Other long term (current) drug therapy; Z79.4 Long term (current) use of insulin; Z79.84 Long term (current) use of oral hypoglycemic drugs; E83.42 Hypomagnesemia; Z95.5 Presence of coronary angioplasty implant and graft; Z79.02 Long term (current) use of antithrombotics/antiplatelets; Z91.199 Patient's noncompliance with other medical treatment and regimen due to unspecified reason; Z89.422 Acquired absence of other left toe(s); Z90.49 Acquired absence of other specified parts of digestive tract; Z96.653 Presence of artificial knee joint, bilateral; Y83.5 Amputation of limb(s) as the cause of abnormal reaction of the patient, or of later complication, without mention of misadventure at the time of the procedure

== ENCOUNTER → 2022-03-28 | Outpatient (REF) | payer MEDICARE, MEDICAID ==
[~2022-03-28] MED LIST changes: +ACET1TAB55 PO; +CIPR7.5D5 AS; +PROBCAP14 PO
[2022-03-28 17:03] LABS: BASO # 0.1 10^3/uL (0.0-0.2); BASO % 0.7 % (0.0-1.0); EOS # 0.3 10^3/uL (0.0-0.5); EOS % 2.5 % (0.0-3.0); HEMATOCRIT 36.5 % (36.0-47.0); HEMOGLOBIN 11.5 g/dl (12.0-15.5); LYMPH # 3.3 10^3/uL (1.5-5.0); MEAN CORPUSCULAR HEMOGLOBIN 30.2 pg (27.0-33.0); MEAN CORPUSCULAR HGB CONC 31.5 g/dl (32.0-36.5); MEAN CORPUSCULAR VOLUME 95.8 fl (80.0-96.0); MONO # 0.4 10^3/uL (0.0-0.8); MONO % 3.8 % (2.0-8.0); NEUTROPHILS # 7.3 10^3/uL (1.5-8.5); NEUTROPHILS % 63.7 % (36.0-66.0); PLATELET COUNT, AUTOMATED 399 10^3/uL (150-450); RED BLOOD COUNT 3.81 10^6/uL (4.00-5.40); WHITE BLOOD COUNT 11.5 10^3/uL (4.0-10.0)
[2022-03-28 18:42] LABS: ALBUMIN 3.1 G/DL (3.2-5.2); AST/SGOT 7.99999 U/L (<34); BILIRUBIN,TOTAL 0.2 MG/DL (0.3-1.2); CALCIUM LEVEL 9.6 MG/DL (8.3-10.6); CREATININE FOR GFR 1.1 MG/DL (0.55-1.30); GLOMERULAR FILTRATION RATE 53.9 (>45); TOTAL PROTEIN 7.1 G/DL (5.7-8.2)
== END ==
LOC: M LAB REF 16:33
PROVIDERS: ATTEND Family Medicine Addiction Medicine
DX: R10.9 Unspecified abdominal pain (principal)

== ENCOUNTER 2022-04-23 11:14 | Observation (INO) | payer MEDICARE, MEDICAID ==
[~2022-04-23] VITALS: Ht 162.6 cm; Wt 105.5 kg
[2022-04-23 13:06] LABS: BASO # 0.1 10^3/uL (0.0-0.2); BASO % 0.8 % (0.0-1.0); EOS # 0.2 10^3/uL (0.0-0.5); EOS % 1.7 % (0.0-3.0); HEMATOCRIT 36.5 % (36.0-47.0); HEMOGLOBIN 11.7 g/dl (12.0-15.5); LYMPH # 2.7 10^3/uL (1.5-5.0); LYMPH % 31.1 % (24.0-44.0); MEAN CORPUSCULAR HEMOGLOBIN 30.4 pg (27.0-33.0); MEAN CORPUSCULAR HGB CONC 32.1 g/dl (32.0-36.5); MEAN CORPUSCULAR VOLUME 94.8 fl (80.0-96.0); MONO # 0.4 10^3/uL (0.0-0.8); NEUTROPHILS # 5.4 10^3/uL (1.5-8.5); NEUTROPHILS % 62.1 % (36.0-66.0); PLATELET COUNT, AUTOMATED 319 10^3/uL (150-450); RED BLOOD COUNT 3.85 10^6/uL (4.00-5.40); WHITE BLOOD COUNT 8.7 10^3/uL (4.0-10.0)
[2022-04-23 13:31] LABS: CALCIUM LEVEL 8.6 MG/DL (8.3-10.6); CREATININE FOR GFR 2.05 MG/DL (0.55-1.30); GLOMERULAR FILTRATION RATE 26.3 (>45); POTASSIUM SERUM 4.4 MMOL/L (3.5-5.1)
[2022-04-23 13:33] LABS: CK-MB VALUE MASS < 1.0 NG/ML (<3.6)
[2022-04-23 13:40] LABS: CPK CREATINE PHOSPHOKINASE 64 U/L (34-145); MB/CK RELATIVE INDEX 1.56 (< OR =4)
[2022-04-23 14:22] LABS: CK-MB VALUE MASS < 1.0 NG/ML (<3.6)
[2022-04-23 14:24] LABS: CPK CREATINE PHOSPHOKINASE 62 U/L (34-145); MB/CK RELATIVE INDEX 1.61 (< OR =4)
[2022-04-23] MEDS ORDERED: NS 500 ML IV ONE (14:50)
[2022-04-23 15:34] LABS: RSV AMPLIFICATION NEGATIVE (NEGATIVE)
[2022-04-23 17:01] LABS: CALCIUM LEVEL 8.4 MG/DL (8.3-10.6); CREATININE FOR GFR 2.01 MG/DL (0.55-1.30); GLOMERULAR FILTRATION RATE 26.9 (>45); POTASSIUM SERUM 4.5 MMOL/L (3.5-5.1)
[2022-04-23] MEDS ORDERED: ACETAMINOPHEN TAB 650MG DOSE (2X325MG) PO PRN (17:25)
[2022-04-23] MEDS: NS 1,000 ML IV SCH (18:00)
[2022-04-23] MEDS ORDERED: DEXTROSE 50% 50ML SYRINGE IV PRN (18:40)
[2022-04-23] MEDS ORDERED: GLUCOSE 4GM CHEW TABLET PO PRN (18:40)
[2022-04-23] MEDS ORDERED: GLUCAGON INJ 1MG VIAL SC PRN (18:40)
[2022-04-23] MEDS: INSULIN LISPRO (NovoLOG) PER UNIT SC SCH ×2 (19:32→23:58)
[2022-04-23] MEDS ORDERED: THERTAB52 PO (20:33)
[2022-04-23] MEDS ORDERED: HOME MED LIST COMPLETE! XX SCH (20:35)
[2022-04-23] MEDS ORDERED: NITROGLYCERIN 0.4MG SUBL TABLET SL PRN (20:40)
[2022-04-23] MEDS ORDERED: CETIRIZINE (ZyrTEC) 10 MG TAB PO SCH (21:00)
[2022-04-23] MEDS ORDERED: VITAMIN D 1,000 INTERNATIONAL UNITS TABLET PO SCH (21:00)
[2022-04-23] MEDS ORDERED: ATORVASTATIN 20 MG TAB PO SCH (21:00)
[2022-04-23] MEDS ORDERED: ZONISAMIDE 100 MG CAP (ZONEGRAN) PO SCH (21:00)
[2022-04-23] MEDS: MAGNESIUM OXIDE 400MG TAB (MAG-OX) PO SCH (21:09)
[2022-04-23] MEDS: GABAPENTIN 300 MG CAP PO SCH (21:09)
[2022-04-23] MEDS: PANTOPRAZOLE 40MG TAB (PROTONIX) PO SCH (21:10)
[2022-04-23] MEDS: HEPARIN SOD (PORCINE) 5000UNITS/ML 1ML VIAL/SYRINGE SQ SCH (21:11)
[2022-04-23] MEDS: LEVEMIR (INSULIN DETEMIR) 1 UNITS/0.01ML SC SCH (21:12)
[2022-04-23] MEDS: METOPROLOL TART 50 MG TAB PO SCH (21:14)
[2022-04-23] MEDS: NYSTATIN 100,000 UNITS/GM TOPICAL PWD 15GM TOP SCH (22:11)
[2022-04-24] MEDS: NS 1,000 ML IV SCH ×2 (01:55→09:08)
[2022-04-24 04:15] VITALS: BP 110/68
[2022-04-24 08:22] LABS: BASO # 0.1 10^3/uL (0.0-0.2); BASO % 0.8 % (0.0-1.0); EOS # 0.2 10^3/uL (0.0-0.5); HEMATOCRIT 37.7 % (36.0-47.0); HEMOGLOBIN 11.7 g/dl (12.0-15.5); LYMPH # 2.9 10^3/uL (1.5-5.0); LYMPH % 37.4 % (24.0-44.0); MEAN CORPUSCULAR HEMOGLOBIN 30.3 pg (27.0-33.0); MEAN CORPUSCULAR VOLUME 97.7 fl (80.0-96.0); MONO # 0.3 10^3/uL (0.0-0.8); MONO % 4.2 % (2.0-8.0); NEUTROPHILS # 4.3 10^3/uL (1.5-8.5); NEUTROPHILS % 55.3 % (36.0-66.0); PLATELET COUNT, AUTOMATED 312 10^3/uL (150-450); RED BLOOD COUNT 3.86 10^6/uL (4.00-5.40); WHITE BLOOD COUNT 7.8 10^3/uL (4.0-10.0)
[2022-04-24 08:47] LABS: CALCIUM LEVEL 8.7 MG/DL (8.3-10.6); CREATININE FOR GFR 1.63 MG/DL (0.55-1.30); GLOMERULAR FILTRATION RATE 34.3 (>45); POTASSIUM SERUM 4.5 MMOL/L (3.5-5.1)
[2022-04-24 09:00] VITALS: BP 147/63
[2022-04-24] MEDS ORDERED: MULTIVITAMINS/MINERALS THERAP 1 TAB PO SCH (09:00)
[2022-04-24] MEDS ORDERED: CLOPIDOGREL 75 MG TAB PO SCH (09:00)
[2022-04-24] MEDS ORDERED: ISOSORBIDE MON. (IMDUR) 60MG XR TAB PO SCH (09:00)
[2022-04-24] MEDS ORDERED: EZETIMIBE 10MG TABLET (ZETIA) PO SCH (09:00)
[2022-04-24] MEDS ORDERED: DONEPEZIL 5 MG TAB PO SCH (09:00)
[2022-04-24] MEDS ORDERED: LACTOBACILLUS ACIDOPHILUS CAP (BACID) PO SCH (09:00)
[2022-04-24] MEDS ORDERED: VENLAFAXINE **XR** 75MG CAPSULE PO SCH ×2 (09:00)
[2022-04-24] MEDS ORDERED: AUGMENTIN 875 MG TAB PO SCH (09:00)
[2022-04-24] MEDS ORDERED: ASPIRIN 81MG ENTERIC TABLET PO SCH (09:00)
[2022-04-24] MEDS: METOPROLOL TART 50 MG TAB PO SCH (09:01)
[2022-04-24] MEDS: GABAPENTIN 300 MG CAP PO SCH (09:01)
[2022-04-24] MEDS: MAGNESIUM OXIDE 400MG TAB (MAG-OX) PO SCH (09:01)
[2022-04-24] MEDS: PANTOPRAZOLE 40MG TAB (PROTONIX) PO SCH (09:01)
[2022-04-24] MEDS: NYSTATIN 100,000 UNITS/GM TOPICAL PWD 15GM TOP SCH (09:02)
[2022-04-24] MEDS: HEPARIN SOD (PORCINE) 5000UNITS/ML 1ML VIAL/SYRINGE SQ SCH ×2 (09:02→13:03)
[2022-04-24] MEDS: INSULIN LISPRO (NovoLOG) PER UNIT SC SCH ×2 (09:03→13:04)
[2022-04-24] MEDS: LEVEMIR (INSULIN DETEMIR) 1 UNITS/0.01ML SC SCH (09:03)
[2022-04-24] MEDS ORDERED: NS 1,000 ML IV ONE (10:20)
== END 2022-04-24 17:25 | disposition home or self-care (01) ==
LOC: M ED 11:14 → M ED INP 16:27
PROVIDERS: ADMIT Internal Medicine; ATTEND Internal Medicine
DX: R29.898 Other symptoms and signs involving the musculoskeletal system (principal); S22.32XA Fracture of one rib, left side, initial encounter for closed fracture; N17.9 Acute kidney failure, unspecified; N18.30 Chronic kidney disease, stage 3 unspecified; E11.40 Type 2 diabetes mellitus with diabetic neuropathy, unspecified; E11.65 Type 2 diabetes mellitus with hyperglycemia; G40.909 Epilepsy, unspecified, not intractable, without status epilepticus; G47.33 Obstructive sleep apnea (adult) (pediatric); I12.9 Hypertensive chronic kidney disease with stage 1 through stage 4 chronic kidney disease, or unspecified chronic kidney disease; E78.5 Hyperlipidemia, unspecified; K21.9 Gastro-esophageal reflux disease without esophagitis; F03.90 Unspecified dementia, unspecified severity, without behavioral disturbance, psychotic disturbance, mood disturbance, and anxiety; J30.9 Allergic rhinitis, unspecified; D50.9 Iron deficiency anemia, unspecified; I25.10 Atherosclerotic heart disease of native coronary artery without angina pectoris; I25.2 Old myocardial infarction; Z98.61 Coronary angioplasty status; K86.1 Other chronic pancreatitis; R91.1 Solitary pulmonary nodule; F41.9 Anxiety disorder, unspecified; F32.A Depression, unspecified; Z79.82 Long term (current) use of aspirin; Z79.2 Long term (current) use of antibiotics; Z79.4 Long term (current) use of insulin; Z79.899 Other long term (current) drug therapy; Z88.8 Allergy status to other drugs, medicaments and biological substances
CPT/HCPCS: 36415; 71045; 71110; 71250; 73030; 76775; 80048; 82550; 82553; 83690; 84484; 85025; 85379; 87631; 93005; 94760; 96361; 96372; 96374; 96376; 97161; 97530; 99285; G0378; J1644; J1815

== ENCOUNTER 2022-06-02 14:29 | Emergency (ER) | payer MEDICARE, MEDICAID ==
[~2022-06-02] VITALS: Ht 162.6 cm; Wt 105.0 kg
[~2022-06-02 14:29] MED LIST changes: +THERTAB52 PO
[2022-06-02] MEDS ORDERED: METOCLOPRAMIDE INJ 10MG/2ML VIAL IV ONE (16:20)
[2022-06-02 17:07] LABS: VENOUS BASE EXCESS -1.8 (-2.0-2.0); VENOUS HCO3 25.5 MEQ/L (23.0-27.0); VENOUS O2 SATURATION 65.6 % (60.0-80.0); VENOUS PARTIAL PRESSURE CO2 53.6 mmHg (38.0-50.0); VENOUS PARTIAL PRESSURE O2 37.1 mmHg (30.0-50.0); VENOUS PH 7.295 UNITS (7.330-7.430); VENOUS STANDARD HCO3 22.3 MEQ/L; VENOUS TOTAL CO2 27.1 MEQ/L (24.0-28.0)
[2022-06-02 17:17] LABS: BASO # 0.1 10^3/uL (0.0-0.2); BASO % 0.6 % (0.0-1.0); EOS # 0.1 10^3/uL (0.0-0.5); EOS % 0.6 % (0.0-3.0); HEMATOCRIT 39.3 % (36.0-47.0); HEMOGLOBIN 12.5 g/dl (12.0-15.5); LYMPH % 30.1 % (24.0-44.0); MEAN CORPUSCULAR HEMOGLOBIN 29.8 pg (27.0-33.0); MEAN CORPUSCULAR HGB CONC 31.8 g/dl (32.0-36.5); MEAN CORPUSCULAR VOLUME 93.8 fl (80.0-96.0); MONO # 0.4 10^3/uL (0.0-0.8); MONO % 3.4 % (2.0-8.0); NEUTROPHILS # 8.4 10^3/uL (1.5-8.5); NEUTROPHILS % 63.9 % (36.0-66.0); PLATELET COUNT, AUTOMATED 354 10^3/uL (150-450); RED BLOOD COUNT 4.19 10^6/uL (4.00-5.40); WHITE BLOOD COUNT 13.1 10^3/uL (4.0-10.0)
[2022-06-02 17:42] LABS: LIPASE 93 U/L (12-53)
[2022-06-02 17:43] LABS: OSMOLALITY SERUM 313 MOSM/KG (275-295)
[2022-06-02 17:45] LABS: CPK CREATINE PHOSPHOKINASE 94 U/L (34-145)
[2022-06-02 17:46] LABS: ALBUMIN 3.2 G/DL (3.2-5.2); ALKALINE PHOSPHATASE 122 U/L (46-116); ALT/SGPT 20 U/L (7.0-40); AST/SGOT 19 U/L (<34); BILIRUBIN,DIRECT < 0.1 MG/DL (<0.4); BILIRUBIN,TOTAL 0.3 MG/DL (0.3-1.2); BLOOD UREA NITROGEN 25 MG/DL (9-23); CALCIUM LEVEL 9.6 MG/DL (8.3-10.6); CARBON DIOXIDE LEVEL 28 MMOL/L (20-31); CHLORIDE LEVEL 101 MMOL/L (98-107); CK-MB VALUE MASS 1.3 NG/ML (<3.6); CREATININE FOR GFR 1.18 MG/DL (0.55-1.30); GLOMERULAR FILTRATION RATE 49.7 (>45); GLUCOSE, FASTING 268 MG/DL (74-106); MB/CK RELATIVE INDEX 1.38 (< OR =4); POTASSIUM SERUM 4.3 MMOL/L (3.5-5.1); SODIUM LEVEL 138 MMOL/L (136-145); TOTAL PROTEIN 7.6 G/DL (5.7-8.2)
[2022-06-02] MEDS ORDERED: REGL5TAB2 PO (18:33)
[2022-06-02 18:40] VITALS: BP 135/79
== END 2022-06-02 18:59 | disposition home or self-care (01) ==
LOC: M ED 14:29
DX: K52.9 Noninfective gastroenteritis and colitis, unspecified (principal); I25.2 Old myocardial infarction; I44.4 Left anterior fascicular block; N18.30 Chronic kidney disease, stage 3 unspecified; I10 Essential (primary) hypertension; E11.9 Type 2 diabetes mellitus without complications; E78.5 Hyperlipidemia, unspecified; G40.89 Other seizures; Z86.79 Personal history of other diseases of the circulatory system; Z88.8 Allergy status to other drugs, medicaments and biological substances; Z79.4 Long term (current) use of insulin; Z79.82 Long term (current) use of aspirin; Z79.810 Long term (current) use of selective estrogen receptor modulators (SERMs)
CPT/HCPCS: 80048; 80076; 82010; 82550; 82553; 82803; 83690; 83930; 84484; 85025; 93005; 96374; 99284; J2765

== ENCOUNTER → 2022-07-05 | Outpatient (REF) | payer MEDICARE, MEDICAID ==
[~2022-07-05] MED LIST changes: +REGL5TAB2 PO
[2022-07-05 17:33] LABS: POTASSIUM SERUM 4.8 MMOL/L (3.5-5.1)
== END ==
LOC: M LAB REF 17:07
PROVIDERS: ATTEND Internal Medicine Nephrology
DX: N18.32 Chronic kidney disease, stage 3b (principal)

== ENCOUNTER → 2022-07-23 | Outpatient (CLI) | payer MEDICARE, MEDICAID | LOC: M LABSMTC 11:44 | PROVIDERS: ATTEND Anesthesiology | DX: Z20.822 Contact with and (suspected) exposure to COVID-19 (principal) ==

== ENCOUNTER 2022-07-25 12:40 | Observation (INO) | payer MEDICARE, MEDICAID ==
[~2022-07-25] VITALS: Ht 162.6 cm; Wt 105.9 kg
[~2022-07-25 12:40] MED LIST changes: +FLUT50SP17; -FLUTISP; +ceFAZolin SOD 2 GM in IV 1 EA IV ONE
[2022-07-25] MEDS ORDERED: MIDAZOLAM INJ 2MG/2ML VIAL As Ordered ONE (13:48)
[2022-07-25] MEDS ORDERED: propofoL 200 MG/20 ML VIAL As Ordered ONE (13:48)
[2022-07-25] MEDS ORDERED: KETOROLAC 60MG 2ML VIAL As Ordered ONE (13:48)
[2022-07-25] MEDS ORDERED: ONDANSETRON 4MG 2ML VIAL As Ordered ONE (13:48)
[2022-07-25] MEDS ORDERED: fentaNYL 100 MCG/2 ML INJECTION As Ordered ONE (13:48)
[2022-07-25] MEDS ORDERED: LIDOCAINE 2% 100MG/5ML SDV (FOR ANES.) As Ordered ONE (13:48)
[2022-07-25] MEDS ORDERED: INSULIN LISPRO (NovoLOG) PER UNIT SC ONE ×2 (14:05→16:35)
[2022-07-25] MEDS ORDERED: LIDOCAINE 1% SDV 30ML VIAL As Ordered ONE (14:56)
[2022-07-25] MEDS ORDERED: BUPIVACAINE HCL 0.5% 30ML VIAL As Ordered ONE (14:56)
[2022-07-25] MEDS ORDERED: hydrALAZINE 20MG/ML 1ML VIAL IV PRN (16:10)
[2022-07-25] MEDS ORDERED: GLUCAGON INJ 1MG VIAL SC PRN (16:10)
[2022-07-25] MEDS ORDERED: DEXTROSE 50% 50ML SYRINGE IV PRN (16:10)
[2022-07-25] MEDS ORDERED: GLUCOSE 4GM CHEW TABLET PO PRN (16:10)
[2022-07-25] MEDS ORDERED: METOCLOPRAMIDE INJ 10MG/2ML VIAL IV STA (16:14)
[2022-07-25] MEDS ORDERED: INSULIN LISPRO (NovoLOG) PER UNIT SC PRN (16:15)
[2022-07-25] MEDS ORDERED: LEVEMIR (INSULIN DETEMIR) 1 UNITS/0.01ML SC ONE (16:35)
[2022-07-25 16:56] LABS: HEMATOCRIT 39.3 % (36.0-47.0); HEMOGLOBIN 12.5 g/dl (12.0-15.5); MEAN CORPUSCULAR HEMOGLOBIN 29.9 pg (27.0-33.0); MEAN CORPUSCULAR HGB CONC 31.8 g/dl (32.0-36.5); PLATELET COUNT, AUTOMATED 324 10^3/uL (150-450); RED BLOOD COUNT 4.18 10^6/uL (4.00-5.40); WHITE BLOOD COUNT 10.9 10^3/uL (4.0-10.0)
[2022-07-25 17:12] VITALS: BP 160/90
[2022-07-25 17:20] LABS: CALCIUM LEVEL 9.7 MG/DL (8.3-10.6); CREATININE FOR GFR 1.2 MG/DL (0.55-1.30); GLOMERULAR FILTRATION RATE 48.8 (>45); POTASSIUM SERUM 4.7 MMOL/L (3.5-5.1)
[2022-07-25] MEDS: METOPROLOL TART 50 MG TAB PO SCH ×2 (17:30→21:18)
[2022-07-25] MEDS: INSULIN LISPRO (NovoLOG) PER UNIT SC SCH (17:30)
[2022-07-25 19:42] VITALS: BP 166/98
[2022-07-25] MEDS: ACETAMINOPHEN TAB 650MG DOSE (2X325MG) PO PRN ×2 (19:55→23:50)
[2022-07-25] MEDS ORDERED: INSULIN LISPRO (NovoLOG) PER UNIT SC SCH (21:00)
[2022-07-25] MEDS: GABAPENTIN 300 MG CAP PO SCH (21:17)
[2022-07-25 23:43] VITALS: BP 146/73
[2022-07-26 03:35] VITALS: BP 136/70
[2022-07-26 05:35] LABS: HEMOGLOBIN 11.9 g/dl (12.0-15.5); MEAN CORPUSCULAR HGB CONC 32.2 g/dl (32.0-36.5); MEAN CORPUSCULAR VOLUME 93.2 fl (80.0-96.0); PLATELET COUNT, AUTOMATED 303 10^3/uL (150-450); RED BLOOD COUNT 3.97 10^6/uL (4.00-5.40); WHITE BLOOD COUNT 11.9 10^3/uL (4.0-10.0)
[2022-07-26 06:05] LABS: ALBUMIN 2.6 G/DL (3.2-5.2); BILIRUBIN,TOTAL 0.2 MG/DL (0.3-1.2); CALCIUM LEVEL 9.2 MG/DL (8.3-10.6); CREATININE FOR GFR 1.35 MG/DL (0.55-1.30); GLOMERULAR FILTRATION RATE 42.6 (>45); MAGNESIUM LEVEL 1.3 MG/DL (1.8-2.4); POTASSIUM SERUM 4.4 MMOL/L (3.5-5.1); TOTAL PROTEIN 6.4 G/DL (5.7-8.2)
[2022-07-26] MEDS: MAG SULF 1GM/100ML (MAG RUN) 1 GM in IV 1 EA IV SCH ×2 (07:00→08:34)
[2022-07-26] MEDS ORDERED: NS 1,000 ML IV SCH (07:25)
[2022-07-26 07:27] VITALS: BP 143/74
[2022-07-26] MEDS ORDERED: PANT40TA29 PO (08:07)
[2022-07-26] MEDS ORDERED: MEMA1TAB3 PO (08:07)
[2022-07-26] MEDS ORDERED: ACET1TAB55 PO (08:07)
[2022-07-26] MEDS ORDERED: LISI10TA22 PO (08:07)
[2022-07-26] MEDS ORDERED: FERR325T19 PO (08:07)
[2022-07-26] MEDS ORDERED: HOME MED LIST COMPLETE! XX SCH (08:20)
[2022-07-26] MEDS: INSULIN LISPRO (NovoLOG) PER UNIT SC SCH ×3 (08:34→16:56)
[2022-07-26] MEDS: GABAPENTIN 300 MG CAP PO SCH ×2 (08:35→17:04)
[2022-07-26] MEDS: METOPROLOL TART 50 MG TAB PO SCH (08:35)
[2022-07-26] MEDS ORDERED: PANTOPRAZOLE 40MG TAB (PROTONIX) PO SCH (09:00)
[2022-07-26] MEDS ORDERED: FERROUS SULFATE 325MG TAB PO SCH (09:00)
[2022-07-26] MEDS ORDERED: VENLAFAXINE **XR** 75MG CAPSULE PO SCH ×3 (09:00→09:57)
[2022-07-26] MEDS ORDERED: EZETIMIBE 10MG TABLET (ZETIA) PO SCH (09:00)
[2022-07-26] MEDS ORDERED: ISOSORBIDE MON. (IMDUR) 60MG XR TAB PO SCH (09:45)
[2022-07-26] MEDS: ACETAMINOPHEN TAB 650MG DOSE (2X325MG) PO PRN (10:33)
[2022-07-26 10:34] VITALS: BP 143/74
[2022-07-26] MEDS ORDERED: LIDOCAINE 1% MDV 20ML VIAL As Ordered ONE (15:09)
[2022-07-26] MEDS ORDERED: BUPIVACAINE HCL 0.5% 30ML VIAL As Ordered ONE (15:09)
[2022-07-26] MEDS ORDERED: fentaNYL 100 MCG/2 ML INJECTION As Ordered ONE (16:09)
[2022-07-26] MEDS ORDERED: MIDAZOLAM INJ 2MG/2ML VIAL As Ordered ONE (16:09)
[2022-07-26] MEDS ORDERED: ceFAZolin 1GM VIAL As Ordered ONE (16:27)
[2022-07-26] MEDS ORDERED: ceFAZolin 2 GM/D5W 50 ML IV BAG As Ordered ONE (16:28)
[2022-07-26] MEDS ORDERED: ONDANSETRON 4MG 2ML VIAL IV PRN (16:45)
[2022-07-26] MEDS ORDERED: INSULIN LISPRO (NovoLOG) PER UNIT SC PRN (16:45)
[2022-07-26] MEDS ORDERED: oxyCODONE 5MG TAB PO PRN (16:45)
[2022-07-26] MEDS ORDERED: METOCLOPRAMIDE INJ 10MG/2ML VIAL IV PRN (16:45)
[2022-07-26] MEDS ORDERED: fentaNYL 100 MCG/2 ML INJECTION IV PRN (16:45)
[2022-07-26 17:11] VITALS: BP 112/58
[2022-07-26] MEDS ORDERED: ZONISAMIDE 100 MG CAP (ZONEGRAN) PO SCH (21:00)
[2022-07-26] MEDS ORDERED: ATORVASTATIN 20 MG TAB PO SCH (21:00)
[2022-07-26] MEDS ORDERED: MEMANTINE 5MG TABLET (NAMENDA) PO SCH (21:00)
[2022-07-26] MEDS ORDERED: CETIRIZINE (ZyrTEC) 10 MG TAB PO SCH (21:00)
== END 2022-07-26 20:05 | disposition home or self-care (01) ==
LOC: M SDC 12:40 → M PCU 12:41
PROVIDERS: ADMIT Family Medicine; ATTEND Family Medicine
DX: I16.0 Hypertensive urgency (principal); M86.172 Other acute osteomyelitis, left ankle and foot; E11.65 Type 2 diabetes mellitus with hyperglycemia; I10 Essential (primary) hypertension; I25.10 Atherosclerotic heart disease of native coronary artery without angina pectoris; G40.909 Epilepsy, unspecified, not intractable, without status epilepticus; Z79.4 Long term (current) use of insulin; N18.9 Chronic kidney disease, unspecified; Z98.61 Coronary angioplasty status; Z79.82 Long term (current) use of aspirin; Z79.899 Other long term (current) drug therapy; G31.84 Mild cognitive impairment of uncertain or unknown etiology; Z88.8 Allergy status to other drugs, medicaments and biological substances
CPT/HCPCS: 28111; 36415; 80048; 80053; 83735; 85027; 87070; 87075; 87076; 87077; 87186; 88305; 88311; 93005; 96374; 96376; G0378; J0690; J1815; J2250; J2405; J3010; J3475

== ENCOUNTER 2022-08-17 08:56 | Emergency (ER) | payer MEDICARE, MEDICAID ==
[~2022-08-17] VITALS: Ht 162.6 cm; Wt 108.1 kg
[~2022-08-17 08:56] MED LIST changes: +MEMA1TAB3 PO; -ceFAZolin SOD 2 GM in IV 1 EA IV ONE
[2022-08-17 09:39] LABS: BASO # 0.1 10^3/uL (0.0-0.2); BASO % 0.8 % (0.0-1.0); EOS # 0.2 10^3/uL (0.0-0.5); EOS % 2.3 % (0.0-3.0); HEMATOCRIT 38.4 % (36.0-47.0); LYMPH # 2.4 10^3/uL (1.5-5.0); LYMPH % 25.9 % (24.0-44.0); MEAN CORPUSCULAR HEMOGLOBIN 30.2 pg (27.0-33.0); MEAN CORPUSCULAR HGB CONC 31.3 g/dl (32.0-36.5); MEAN CORPUSCULAR VOLUME 96.5 fl (80.0-96.0); MONO # 0.4 10^3/uL (0.0-0.8); MONO % 4.4 % (2.0-8.0); NEUTROPHILS % 66.2 % (36.0-66.0); PLATELET COUNT, AUTOMATED 336 10^3/uL (150-450); RED BLOOD COUNT 3.98 10^6/uL (4.00-5.40); WHITE BLOOD COUNT 9.1 10^3/uL (4.0-10.0)
[2022-08-17 10:08] LABS: CK-MB VALUE MASS 1.1 NG/ML (<3.6)
[2022-08-17 10:09] LABS: CALCIUM LEVEL 8.8 MG/DL (8.3-10.6); CREATININE FOR GFR 1.21 MG/DL (0.55-1.30); GLOMERULAR FILTRATION RATE 48.3 (>45); POTASSIUM SERUM 4.6 MMOL/L (3.5-5.1)
[2022-08-17 10:12] LABS: MB/CK RELATIVE INDEX 1.32 (< OR =4)
[2022-08-17 12:05] VITALS: BP 121/56
== END 2022-08-17 12:06 | disposition home or self-care (01) ==
LOC: M ED 08:56
DX: S20.211A Contusion of right front wall of thorax, initial encounter (principal); R07.82 Intercostal pain; I44.4 Left anterior fascicular block; I25.2 Old myocardial infarction; I10 Essential (primary) hypertension; E11.9 Type 2 diabetes mellitus without complications; N18.30 Chronic kidney disease, stage 3 unspecified; Z86.79 Personal history of other diseases of the circulatory system; Z88.8 Allergy status to other drugs, medicaments and biological substances; Z79.52 Long term (current) use of systemic steroids; Z79.811 Long term (current) use of aromatase inhibitors; Z79.4 Long term (current) use of insulin; Z79.891 Long term (current) use of opiate analgesic; Z79.899 Other long term (current) drug therapy

== ENCOUNTER → 2022-08-23 | Outpatient (CLI) | payer MEDICARE, MEDICAID | LOC: M PLAIMG 13:57 | PROVIDERS: ATTEND Pediatrics | DX: G45.9 Transient cerebral ischemic attack, unspecified (principal) ==

== ENCOUNTER 2022-09-12 20:03 | Inpatient (IN) | payer OTHER, MEDICAID ==
[~2022-09-12] VITALS: Ht 162.6 cm; Wt 111.7 kg
[2022-09-12] MEDS ORDERED: NS 500 ML IV ONE (20:35)
[2022-09-12 21:11] LABS: BASO % 0.6 % (0.0-1.0); EOS # 0.2 10^3/uL (0.0-0.5); EOS % 2.9 % (0.0-3.0); HEMATOCRIT 41.2 % (36.0-47.0); HEMOGLOBIN 13.3 g/dl (12.0-15.5); LYMPH # 1.9 10^3/uL (1.5-5.0); MEAN CORPUSCULAR HEMOGLOBIN 30.5 pg (27.0-33.0); MEAN CORPUSCULAR HGB CONC 32.3 g/dl (32.0-36.5); MEAN CORPUSCULAR VOLUME 94.5 fl (80.0-96.0); MONO # 0.5 10^3/uL (0.0-0.8); MONO % 9.5 % (2.0-8.0); NEUTROPHILS # 2.6 10^3/uL (1.5-8.5); NEUTROPHILS % 49.6 % (36.0-66.0); PLATELET COUNT, AUTOMATED 245 10^3/uL (150-450); RED BLOOD COUNT 4.36 10^6/uL (4.00-5.40); WHITE BLOOD COUNT 5.2 10^3/uL (4.0-10.0)
[2022-09-12 21:35] LABS: ETHYL ALCOHOL (ETHANOL) < 0.003 % (0.000-0.010)
[2022-09-12 21:37] LABS: ALBUMIN 2.6 G/DL (3.2-5.2); ALKALINE PHOSPHATASE 124 U/L (46-116); ALT/SGPT 24 U/L (7.0-40); AST/SGOT 16 U/L (<34); BILIRUBIN,TOTAL 0.2 MG/DL (0.3-1.2); BLOOD UREA NITROGEN 50 MG/DL (9-23); CARBON DIOXIDE LEVEL 24 MMOL/L (20-31); CHLORIDE LEVEL 102 MMOL/L (98-107); CREATININE FOR GFR 1.57 MG/DL (0.55-1.30); GLOMERULAR FILTRATION RATE 35.8 (>45); GLUCOSE, FASTING 309 MG/DL (74-106); MAGNESIUM LEVEL 1.8 MG/DL (1.8-2.4); POTASSIUM SERUM 4.8 MMOL/L (3.5-5.1); SODIUM LEVEL 135 MMOL/L (136-145); TOTAL PROTEIN 6.6 G/DL (5.7-8.2)
[2022-09-12 21:38] LABS: THYROID STIMULATING HORMONE 1.287 uIU/ML (0.55-4.78)
[2022-09-12 21:57] LABS: AMPHETAMINES LEVEL URINE NEGATIVE (NEGATIVE); BENZODIAZEPINES URINE NEGATIVE (NEGATIVE); PHENCYCLIDINE URINE NEGATIVE (NEGATIVE)
[2022-09-12 21:58] LABS: BARBITURATES URINE NEGATIVE (NEGATIVE); COCAINE METABOLITE URINE NEGATIVE (NEGATIVE); METHADONE URINE NEGATIVE (NEGATIVE); OPIATES URINE NEGATIVE (NEGATIVE)
[2022-09-12 22:00] LABS: CANNABINOIDS URINE POSITIVE (NEGATIVE)
[2022-09-12] MEDS ORDERED: ISOVUE-370 76% 100ML VIAL As Ordered ONE (22:07)
[2022-09-12] MEDS ORDERED: FARX1TAB3 PO (23:30)
[2022-09-12] MEDS ORDERED: HOME MED LIST COMPLETE! XX SCH (23:30)
[2022-09-13] VITALS (9 sets, daily range): BP systolic 118–154; BP diastolic 55–86
[2022-09-13] MEDS ORDERED: GLUCOSE 4GM CHEW TABLET PO PRN ×2 (01:55→12:55)
[2022-09-13] MEDS ORDERED: NS 1,000 ML IV ONE (01:55)
[2022-09-13] MEDS ORDERED: GLUCAGON INJ 1MG VIAL SC PRN ×2 (01:55→12:55)
[2022-09-13] MEDS ORDERED: DEXTROSE 50% 50ML SYRINGE IV PRN ×2 (01:55→12:55)
[2022-09-13] MEDS: INSULIN LISPRO (NovoLOG) PER UNIT SC SCH ×5 (02:11→20:30)
[2022-09-13] MEDS: LEVEMIR (INSULIN DETEMIR) 1 UNITS/0.01ML SC SCH ×2 (02:12→20:29)
[2022-09-13] MEDS ORDERED: UNRESOLVED CLARIFICATION ENTRY XX STA (02:40)
[2022-09-13] MEDS ORDERED: cefTRIAXone SOD 1 GM in D5W MINI-BAG PLUS 50 ML IV SCH (03:00)
[2022-09-13] MEDS: NS 1,000 ML IV SCH ×2 (03:42→17:00)
[2022-09-13 03:49] LABS: TOTAL PROTEIN,RANDOM URINE 229.8 MG/DL (0.0-14.0)
[2022-09-13 07:43] LABS: ALBUMIN 2.3 G/DL (3.2-5.2); ALKALINE PHOSPHATASE 102 U/L (46-116); ALT/SGPT 24 U/L (7.0-40); AST/SGOT 18 U/L (<34); BILIRUBIN,TOTAL < 0.2 MG/DL (0.3-1.2); BLOOD UREA NITROGEN 42 MG/DL (9-23); CARBON DIOXIDE LEVEL 26 MMOL/L (20-31); CHLORIDE LEVEL 105 MMOL/L (98-107); CREATININE FOR GFR 1.39 MG/DL (0.55-1.30); GLOMERULAR FILTRATION RATE 41.2 (>45); GLUCOSE, FASTING 276 MG/DL (74-106); MAGNESIUM LEVEL 1.7 MG/DL (1.8-2.4); POTASSIUM SERUM 4.7 MMOL/L (3.5-5.1); SODIUM LEVEL 137 MMOL/L (136-145)
[2022-09-13 07:43] LABS: BASO % 0.6 % (0.0-1.0); EOS # 0.1 10^3/uL (0.0-0.5); EOS % 4.1 % (0.0-3.0); HEMATOCRIT 38.5 % (36.0-47.0); HEMOGLOBIN 12.5 g/dl (12.0-15.5); LYMPH # 1.6 10^3/uL (1.5-5.0); LYMPH % 47.1 % (24.0-44.0); MEAN CORPUSCULAR HEMOGLOBIN 30.9 pg (27.0-33.0); MEAN CORPUSCULAR HGB CONC 32.5 g/dl (32.0-36.5); MEAN CORPUSCULAR VOLUME 95.1 fl (80.0-96.0); MONO # 0.5 10^3/uL (0.0-0.8); MONO % 13.7 % (2.0-8.0); NEUTROPHILS # 1.2 10^3/uL (1.5-8.5); NEUTROPHILS % 34.2 % (36.0-66.0); PLATELET COUNT, AUTOMATED 211 10^3/uL (150-450); RED BLOOD COUNT 4.05 10^6/uL (4.00-5.40); WHITE BLOOD COUNT 3.4 10^3/uL (4.0-10.0)
[2022-09-13] MEDS ORDERED: VENLAFAXINE **XR** 75MG CAPSULE PO SCH (09:00)
[2022-09-13] MEDS ORDERED: NYSTATIN 100,000 UNITS/GM TOPICAL PWD 15GM TOP PRN (09:00)
[2022-09-13] MEDS ORDERED: NITROGLYCERIN 0.4MG SUBL TABLET SL PRN (09:00)
[2022-09-13 09:26] LABS: FREE T3 2.6 PG/ML (2.3-4.2); FREE T4 0.98 NG/DL (0.89-1.76)
[2022-09-13] MEDS: MAG SULF 1GM/100ML (MAG RUN) 1 GM in IV 1 EA IV SCH ×2 (11:07→14:20)
[2022-09-13] MEDS: GABAPENTIN 300 MG CAP PO SCH ×3 (11:08→20:31)
[2022-09-13] MEDS: ENOXAPARIN 40MG/0.4ML SYRINGE (J1650 PER 10MG) SC SCH ×2 (11:08→20:30)
[2022-09-13] MEDS: VENLAFAXINE **XR** 75MG CAPSULE PO SCH (11:08)
[2022-09-13] MEDS: PANTOPRAZOLE 40MG TAB (PROTONIX) PO SCH (11:09)
[2022-09-13] MEDS: ISOSORBIDE MON. (IMDUR) 60MG XR TAB PO SCH (11:09)
[2022-09-13] MEDS: ASPIRIN 81MG ENTERIC TABLET PO SCH (11:09)
[2022-09-13] MEDS: CLOPIDOGREL 75 MG TAB PO SCH (11:09)
[2022-09-13] MEDS: EZETIMIBE 10MG TABLET (ZETIA) PO SCH (11:09)
[2022-09-13] MEDS: MEMANTINE 5MG TABLET (NAMENDA) PO SCH ×2 (11:09→20:36)
[2022-09-13] MEDS: METOPROLOL TART 50 MG TAB PO SCH ×2 (11:09→20:36)
[2022-09-13] MEDS: FERROUS SULFATE 325MG TAB PO SCH (11:10)
[2022-09-13] MEDS: MAGNESIUM OXIDE 400MG TAB (MAG-OX) PO SCH ×2 (11:10→20:31)
[2022-09-13] MEDS: DONEPEZIL 5 MG TAB PO SCH ×2 (12:55→13:44)
[2022-09-13] MEDS ORDERED: MAG SULF 1GM/100ML (MAG RUN) 1 GM in IV 1 EA IV ONE (15:00)
[2022-09-13] MEDS: ZONISAMIDE 100 MG CAP (ZONEGRAN) PO SCH (20:30)
[2022-09-13] MEDS: ATORVASTATIN 20 MG TAB PO SCH (20:30)
[2022-09-13] MEDS: CETIRIZINE (ZyrTEC) 10 MG TAB PO SCH (20:31)
[2022-09-14 00:08] VITALS: BP 125/63
[2022-09-14] MEDS: NS 1,000 ML IV SCH ×3 (02:01→22:49)
[2022-09-14 04:12] VITALS: BP 132/69
[2022-09-14 07:55] LABS: BASO % 0.6 % (0.0-1.0); EOS # 0.2 10^3/uL (0.0-0.5); EOS % 4.3 % (0.0-3.0); HEMATOCRIT 34.9 % (36.0-47.0); LYMPH # 2.8 10^3/uL (1.5-5.0); MEAN CORPUSCULAR HEMOGLOBIN 30.4 pg (27.0-33.0); MEAN CORPUSCULAR HGB CONC 31.5 g/dl (32.0-36.5); MEAN CORPUSCULAR VOLUME 96.4 fl (80.0-96.0); MONO # 0.3 10^3/uL (0.0-0.8); MONO % 6.3 % (2.0-8.0); NEUTROPHILS # 1.9 10^3/uL (1.5-8.5); NEUTROPHILS % 35.6 % (36.0-66.0); PLATELET COUNT, AUTOMATED 237 10^3/uL (150-450); RED BLOOD COUNT 3.62 10^6/uL (4.00-5.40); WHITE BLOOD COUNT 5.4 10^3/uL (4.0-10.0)
[2022-09-14 07:57] VITALS: BP 162/74
[2022-09-14 08:20] LABS: CALCIUM LEVEL 8.1 MG/DL (8.3-10.6); CREATININE FOR GFR 1.27 MG/DL (0.55-1.30); GLOMERULAR FILTRATION RATE 45.7 (>45); MAGNESIUM LEVEL 2.1 MG/DL (1.8-2.4); POTASSIUM SERUM 4.5 MMOL/L (3.5-5.1)
[2022-09-14] MEDS: ASPIRIN 81MG ENTERIC TABLET PO SCH (08:36)
[2022-09-14] MEDS: INSULIN LISPRO (NovoLOG) PER UNIT SC SCH ×4 (08:36→20:16)
[2022-09-14] MEDS: EZETIMIBE 10MG TABLET (ZETIA) PO SCH (08:36)
[2022-09-14] MEDS: GABAPENTIN 300 MG CAP PO SCH ×3 (08:36→20:22)
[2022-09-14] MEDS: ENOXAPARIN 40MG/0.4ML SYRINGE (J1650 PER 10MG) SC SCH ×2 (08:36→20:22)
[2022-09-14] MEDS: VENLAFAXINE **XR** 75MG CAPSULE PO SCH (08:36)
[2022-09-14] MEDS: DONEPEZIL 5 MG TAB PO SCH (08:37)
[2022-09-14] MEDS: FERROUS SULFATE 325MG TAB PO SCH (08:37)
[2022-09-14] MEDS: MAGNESIUM OXIDE 400MG TAB (MAG-OX) PO SCH ×2 (08:37→20:23)
[2022-09-14] MEDS: MEMANTINE 5MG TABLET (NAMENDA) PO SCH ×2 (08:37→20:23)
[2022-09-14] MEDS: METOPROLOL TART 50 MG TAB PO SCH ×2 (08:38→20:15)
[2022-09-14] MEDS: PANTOPRAZOLE 40MG TAB (PROTONIX) PO SCH (08:38)
[2022-09-14] MEDS: CLOPIDOGREL 75 MG TAB PO SCH (08:39)
[2022-09-14] MEDS: ISOSORBIDE MON. (IMDUR) 60MG XR TAB PO SCH (08:50)
[2022-09-14 11:45] LABS: CHOLESTEROL RISK RATIO 6.8 (<5); HDL CHOLESTEROL 22.5 MG/DL (>40); LDL CHOLESTEROL 56.7 MG/DL (<100); NON-HDL-C 130.5 MG/DL
[2022-09-14 12:14] VITALS: BP 136/65
[2022-09-14 16:20] VITALS: BP 127/75
[2022-09-14 19:39] VITALS: BP 143/70
[2022-09-14] MEDS: LEVEMIR (INSULIN DETEMIR) 1 UNITS/0.01ML SC SCH (20:21)
[2022-09-14] MEDS: ZONISAMIDE 100 MG CAP (ZONEGRAN) PO SCH (20:22)
[2022-09-14] MEDS: ATORVASTATIN 20 MG TAB PO SCH (20:22)
[2022-09-14] MEDS: CETIRIZINE (ZyrTEC) 10 MG TAB PO SCH (20:23)
[2022-09-15] VITALS (9 sets, daily range): BP systolic 138–158; BP diastolic 63–80
[2022-09-15] MEDS: NS 1,000 ML IV SCH (04:12)
[2022-09-15 04:17] LABS: HEMATOCRIT 32.8 % (36.0-47.0); HEMOGLOBIN 10.4 g/dl (12.0-15.5); MEAN CORPUSCULAR HEMOGLOBIN 30.4 pg (27.0-33.0); MEAN CORPUSCULAR HGB CONC 31.7 g/dl (32.0-36.5); MEAN CORPUSCULAR VOLUME 95.9 fl (80.0-96.0); PLATELET COUNT, AUTOMATED 224 10^3/uL (150-450); RED BLOOD COUNT 3.42 10^6/uL (4.00-5.40); WHITE BLOOD COUNT 5.7 10^3/uL (4.0-10.0)
[2022-09-15 04:36] LABS: ATYPICAL LYMPH 8 % (0-5); EOSINOPHILS 2 % (0-3); LYMPHOCYTES 53 % (16-44); MONOCYTES 3 % (0-5); NEUTROPHILS 34 % (28-66); PLATELET ESTIMATE NORMAL (NORMAL)
[2022-09-15 04:40] LABS: CALCIUM LEVEL 8.2 MG/DL (8.3-10.6); CREATININE FOR GFR 1.11 MG/DL (0.55-1.30); GLOMERULAR FILTRATION RATE 53.4 (>45); MAGNESIUM LEVEL 1.8 MG/DL (1.8-2.4); POTASSIUM SERUM 4.5 MMOL/L (3.5-5.1)
[2022-09-15] MEDS: INSULIN LISPRO (NovoLOG) PER UNIT SC SCH ×2 (07:30→12:54)
[2022-09-15] MEDS ORDERED: CETACAINE SPRAY 5GM As Ordered ONE (08:57)
[2022-09-15] MEDS ORDERED: LIDOCAINE VISCOUS 2% SOLN 15ML UDC As Ordered ONE (08:57)
[2022-09-15] MEDS ORDERED: propofoL 200 MG/20 ML VIAL As Ordered ONE (09:59)
[2022-09-15] MEDS: FERROUS SULFATE 325MG TAB PO SCH (11:05)
[2022-09-15] MEDS: PANTOPRAZOLE 40MG TAB (PROTONIX) PO SCH (11:05)
[2022-09-15] MEDS: VENLAFAXINE **XR** 75MG CAPSULE PO SCH (11:05)
[2022-09-15] MEDS: ENOXAPARIN 40MG/0.4ML SYRINGE (J1650 PER 10MG) SC SCH (11:05)
[2022-09-15] MEDS: ASPIRIN 81MG ENTERIC TABLET PO SCH (11:05)
[2022-09-15] MEDS: MAGNESIUM OXIDE 400MG TAB (MAG-OX) PO SCH (11:06)
[2022-09-15] MEDS: GABAPENTIN 300 MG CAP PO SCH ×2 (11:06→15:38)
[2022-09-15] MEDS: CLOPIDOGREL 75 MG TAB PO SCH (11:06)
[2022-09-15] MEDS: DONEPEZIL 5 MG TAB PO SCH (11:06)
[2022-09-15] MEDS: EZETIMIBE 10MG TABLET (ZETIA) PO SCH (11:06)
[2022-09-15] MEDS: MEMANTINE 5MG TABLET (NAMENDA) PO SCH (11:06)
[2022-09-15] MEDS: METOPROLOL TART 50 MG TAB PO SCH (11:07)
[2022-09-15] MEDS: ISOSORBIDE MON. (IMDUR) 60MG XR TAB PO SCH (11:10)
[2022-09-16 19:07] LABS: COPPER PLASMA 146 ug/dL (80-158)
== END 2022-09-15 17:00 | disposition home health service (06) | DRG 64 ==
LOC: M ED 20:03 → M ED INP 23:51 → M PCU 09-13 03:06
PROVIDERS: ADMIT Internal Medicine; ATTEND Internal Medicine
PROC: B246ZZ4 Ultrasonography of Right and Left Heart, Transesophageal (ICD-10-PCS; principal; 2022-09-15 09:30)
DX: I63.9 Cerebral infarction, unspecified (principal); G93.41 Metabolic encephalopathy; N17.9 Acute kidney failure, unspecified; Z68.41 Body mass index [BMI] 40.0-44.9, adult; G40.909 Epilepsy, unspecified, not intractable, without status epilepticus; E11.40 Type 2 diabetes mellitus with diabetic neuropathy, unspecified; I10 Essential (primary) hypertension; I25.2 Old myocardial infarction; E78.00 Pure hypercholesterolemia, unspecified; I25.10 Atherosclerotic heart disease of native coronary artery without angina pectoris; K21.9 Gastro-esophageal reflux disease without esophagitis; F32.A Depression, unspecified; R80.9 Proteinuria, unspecified; Z95.9 Presence of cardiac and vascular implant and graft, unspecified; Z79.82 Long term (current) use of aspirin; F03.90 Unspecified dementia, unspecified severity, without behavioral disturbance, psychotic disturbance, mood disturbance, and anxiety; G47.33 Obstructive sleep apnea (adult) (pediatric); I70.0 Atherosclerosis of aorta; E11.65 Type 2 diabetes mellitus with hyperglycemia; E78.5 Hyperlipidemia, unspecified; E66.01 Morbid (severe) obesity due to excess calories; G43.909 Migraine, unspecified, not intractable, without status migrainosus; A08.8 Other specified intestinal infections; Z88.8 Allergy status to other drugs, medicaments and biological substances; Z79.899 Other long term (current) drug therapy; Z79.4 Long term (current) use of insulin

== ENCOUNTER 2022-12-10 16:27 | Observation (INO) | payer OTHER, MEDICAID ==
[~2022-12-10] VITALS: Ht 162.6 cm; Wt 105.3 kg
[~2022-12-10 16:27] MED LIST changes: +FARX1TAB3 PO; -ROSU20TA5 PO; +ROSU20TA61 PO; +SENN-111 PO; -SENN18TA PO
[2022-12-10 19:17] LABS: ALBUMIN 3.1 G/DL (3.2-5.2); ALKALINE PHOSPHATASE 145 U/L (46-116); ALT/SGPT 17 U/L (7.0-40); AST/SGOT < 8 U/L (<34); BILIRUBIN,TOTAL 0.2 MG/DL (0.3-1.2); BLOOD UREA NITROGEN 49 MG/DL (9-23); CALCIUM LEVEL 9.7 MG/DL (8.3-10.6); CARBON DIOXIDE LEVEL 26 MMOL/L (20-31); CHLORIDE LEVEL 103 MMOL/L (98-107); GLOMERULAR FILTRATION RATE 32.6 (>45); GLUCOSE, FASTING 418 MG/DL (74-106); POTASSIUM SERUM 4.8 MMOL/L (3.5-5.1); SODIUM LEVEL 138 MMOL/L (136-145); TOTAL PROTEIN 6.7 G/DL (5.7-8.2)
[2022-12-10 19:47] LABS: BASO # 0.1 10^3/uL (0.0-0.2); EOS # 0.2 10^3/uL (0.0-0.5); EOS % 1.8 % (0.0-3.0); HEMATOCRIT 39.5 % (36.0-47.0); HEMOGLOBIN 12.4 g/dl (12.0-15.5); LYMPH % 36.6 % (24.0-44.0); MEAN CORPUSCULAR HEMOGLOBIN 30.4 pg (27.0-33.0); MEAN CORPUSCULAR HGB CONC 31.4 g/dl (32.0-36.5); MEAN CORPUSCULAR VOLUME 96.8 fl (80.0-96.0); MONO # 0.3 10^3/uL (0.0-0.8); MONO % 3.8 % (2.0-8.0); NEUTROPHILS # 4.6 10^3/uL (1.5-8.5); NEUTROPHILS % 56.7 % (36.0-66.0); PLATELET COUNT, AUTOMATED 264 10^3/uL (150-450); RED BLOOD COUNT 4.08 10^6/uL (4.00-5.40); WHITE BLOOD COUNT 8.1 10^3/uL (4.0-10.0)
[2022-12-11] MEDS ORDERED: NS 1,000 ML IV ONE (00:15)
[2022-12-11 00:23] LABS: CK-MB VALUE MASS < 1.0 NG/ML (<3.6)
[2022-12-11 00:25] LABS: CPK CREATINE PHOSPHOKINASE 102 U/L (34-145); MB/CK RELATIVE INDEX 0.98 (< OR =4)
[2022-12-11] MEDS ORDERED: ISOVUE-370 76% 100ML VIAL As Ordered ONE (00:53)
[2022-12-11 02:38] LABS: CK-MB VALUE MASS < 1.0 NG/ML (<3.6)
[2022-12-11 02:40] LABS: CPK CREATINE PHOSPHOKINASE 97 U/L (34-145); MB/CK RELATIVE INDEX 1.03 (< OR =4)
[2022-12-11] MEDS ORDERED: GLUCAGON INJ 1MG VIAL SC PRN (03:05)
[2022-12-11] MEDS ORDERED: DEXTROSE 50% 50ML SYRINGE IV PRN (03:05)
[2022-12-11] MEDS ORDERED: GLUCOSE 4GM CHEW TABLET PO PRN (03:05)
[2022-12-11 03:59] LABS: RSV AMPLIFICATION NEGATIVE (NEGATIVE)
[2022-12-11] MEDS ORDERED: NS 1,000 ML IV SCH (06:00)
[2022-12-11] MEDS: INSULIN LISPRO (NovoLOG) PER UNIT SC SCH ×2 (06:00→13:13)
[2022-12-11 06:09] LABS: APPEARANCE, URINE CLEAR (CLEAR); BACTERIA, URINE AUTO NEGATIVE (NEGATIVE); BILIRUBIN, URINE AUTO NEGATIVE (NEGATIVE); BLOOD, URINE BLOOD NEGATIVE (NEGATIVE); COLOR, URINE STRAW (YELLOW); GLUCOSE, URINE (UA) AUTO 3+ mg/dL (NEGATIVE); KETONE, URINE AUTO NEGATIVE (NEGATIVE); LEUKOCYTE ESTERASE, URINE AUTO NEGATIVE (NEGATIVE); NITRITE, URINE AUTO NEGATIVE (NEGATIVE); PROTEIN, URINE AUTO 1+ mg/dL (NEGATIVE); RBC, URINE AUTO 1 /HPF (0-3); SPECIFIC GRAVITY URINE AUTO 1.026 (1.002-1.035); SQUAMOUS EPITHELIAL CELL UR AU 1 /HPF (0-6); UROBILINOGEN, URINE AUTO 0.2 mg/dL (0.0-2.0); WBC, URINE AUTO 2 /HPF (0-3)
[2022-12-11 06:28] LABS: CALCIUM LEVEL 9.5 MG/DL (8.3-10.6); CREATININE FOR GFR 1.6 MG/DL (0.55-1.30); GLOMERULAR FILTRATION RATE 34.9 (>45); POTASSIUM SERUM 4.8 MMOL/L (3.5-5.1)
[2022-12-11 06:34] LABS: AMPHETAMINES LEVEL URINE NEGATIVE (NEGATIVE); BARBITURATES URINE NEGATIVE (NEGATIVE); BENZODIAZEPINES URINE NEGATIVE (NEGATIVE)
[2022-12-11 06:35] LABS: CANNABINOIDS URINE NEGATIVE (NEGATIVE); COCAINE METABOLITE URINE NEGATIVE (NEGATIVE); METHADONE URINE NEGATIVE (NEGATIVE); OPIATES URINE NEGATIVE (NEGATIVE); PHENCYCLIDINE URINE NEGATIVE (NEGATIVE)
[2022-12-11] MEDS ORDERED: MED REC IN PROGRESS XX SCH (07:20)
[2022-12-11] MEDS ORDERED: FLUT50SP17 NARES (07:44)
[2022-12-11] MEDS ORDERED: VASC1CAP2 PO (07:44)
[2022-12-11] MEDS ORDERED: LISI20TA33 PO (07:44)
[2022-12-11] MEDS ORDERED: HOME MED LIST COMPLETE! XX SCH (07:45)
[2022-12-11] MEDS: HEPARIN SOD (PORCINE) 5000UNITS/ML 1ML VIAL/SYRINGE SC SCH ×2 (08:54→13:14)
[2022-12-11] MEDS ORDERED: LEVEMIR (INSULIN DETEMIR) 1 UNITS/0.01ML SC SCH (09:00)
[2022-12-11] MEDS ORDERED: LORazepam 1 MG TAB PO ONE (10:00)
[2022-12-11 16:00] VITALS: BP 157/73; TEMP 96.8; O2SAT 93
== END 2022-12-11 17:30 | disposition home or self-care (01) ==
LOC: M ED 16:27 → M ED INP 16:28 → ENRESERV 12-11 15:45
PROVIDERS: ADMIT Internal Medicine; ATTEND Internal Medicine
DX: G93.40 Encephalopathy, unspecified (principal); E11.65 Type 2 diabetes mellitus with hyperglycemia; R55 Syncope and collapse; K21.9 Gastro-esophageal reflux disease without esophagitis; E66.01 Morbid (severe) obesity due to excess calories; I10 Essential (primary) hypertension; I25.10 Atherosclerotic heart disease of native coronary artery without angina pectoris; Z86.73 Personal history of transient ischemic attack (TIA), and cerebral infarction without residual deficits; G40.909 Epilepsy, unspecified, not intractable, without status epilepticus; F32.A Depression, unspecified; R25.1 Tremor, unspecified; E78.5 Hyperlipidemia, unspecified; F03.90 Unspecified dementia, unspecified severity, without behavioral disturbance, psychotic disturbance, mood disturbance, and anxiety; Z88.8 Allergy status to other drugs, medicaments and biological substances; Z79.82 Long term (current) use of aspirin; Z79.84 Long term (current) use of oral hypoglycemic drugs; Z79.899 Other long term (current) drug therapy; R20.0 Anesthesia of skin
CPT/HCPCS: 36415; 70450; 70496; 70498; 70551; 71046; 80048; 80053; 80307; 81001; 82140; 82550; 82553; 84484; 85025; 85379; 87631; 93005; 93971; 96374; 97161; 97530; 99285; G0378; J1815; Q9967

== ENCOUNTER → 2022-12-14 | Outpatient (REF) | payer OTHER, MEDICAID ==
[~2022-12-14] MED LIST changes: +FLUT50SP17 NARES; +VASC1CAP2 PO
[2022-12-14 17:20] LABS: HDL CHOLESTEROL 42.2 MG/DL (>40); LDL CHOLESTEROL 94.4 MG/DL (<100); MAGNESIUM LEVEL 1.7 MG/DL (1.8-2.4); NON-HDL-C 168.8 MG/DL
[2022-12-14 17:22] LABS: THYROID STIMULATING HORMONE 1.372 uIU/ML (0.55-4.78)
== END ==
LOC: M LAB REF 16:16
PROVIDERS: ATTEND Pediatrics
DX: F01.50 Vascular dementia, unspecified severity, without behavioral disturbance, psychotic disturbance, mood disturbance, and anxiety (principal); F41.8 Other specified anxiety disorders; E83.42 Hypomagnesemia; E78.00 Pure hypercholesterolemia, unspecified

== ENCOUNTER → 2023-02-25 | Outpatient (REF) | payer OTHER, MEDICAID ==
[2023-02-25 17:51] LABS: URIC ACID 6.8 MG/DL (3.1-7.8)
[2023-02-25 17:53] LABS: BLOOD UREA NITROGEN 41 MG/DL (9-23); CALCIUM LEVEL 9.4 MG/DL (8.3-10.6); CARBON DIOXIDE LEVEL 27 MMOL/L (20-31); CHLORIDE LEVEL 105 MMOL/L (98-107); CREATININE FOR GFR 1.41 MG/DL (0.55-1.30); GLOMERULAR FILTRATION RATE 40.4 (>45); GLUCOSE, FASTING 261 MG/DL (74-106); MAGNESIUM LEVEL 1.7 MG/DL (1.8-2.4); POTASSIUM SERUM 5.5 MMOL/L (3.5-5.1); RHEUMATOID FACTOR QUANT < 3.5 IU/ML (<14); SODIUM LEVEL 141 MMOL/L (136-145)
[2023-02-27 20:12] LABS: ANA (HEP2) Negative (.); CYCLIC CITRULLINATED PEPTIDE 1 units (0-19)
== END ==
LOC: M LAB REF 16:35
PROVIDERS: ATTEND Pediatrics
DX: M79.641 Pain in right hand (principal); M79.642 Pain in left hand; I10 Essential (primary) hypertension; E83.42 Hypomagnesemia

== ENCOUNTER → 2023-04-07 | Outpatient (CLI) | payer OTHER, MEDICAID ==
[~2023-04-07] MED LIST changes: -FLUT50SP17; -FLUT50SP17 NARES; +FLUTISP; +FLUTISP NARES
[2023-04-07 15:07] LABS: HEMOGLOBIN 12.7 g/dl (12.0-15.5); MEAN CORPUSCULAR HEMOGLOBIN 30.5 pg (27.0-33.0); MEAN CORPUSCULAR HGB CONC 31.8 g/dl (32.0-36.5); MEAN CORPUSCULAR VOLUME 96.2 fl (80.0-96.0); PLATELET COUNT, AUTOMATED 338 10^3/uL (150-450); RED BLOOD COUNT 4.16 10^6/uL (4.00-5.40); WHITE BLOOD COUNT 11.1 10^3/uL (4.0-10.0)
[2023-04-07 15:31] LABS: CALCIUM LEVEL 9.4 MG/DL (8.3-10.6); CREATININE FOR GFR 1.69 MG/DL (0.55-1.30); GLOMERULAR FILTRATION RATE 32.8 (>45); POTASSIUM SERUM 5.5 MMOL/L (3.5-5.1)
== END ==
LOC: M RAD 14:08
PROVIDERS: ATTEND Nurse Practitioner Family
DX: R07.81 Pleurodynia (principal)

== ENCOUNTER → 2023-04-10 | Outpatient (CLI) | payer OTHER, MEDICAID ==
[2023-04-10 14:51] LABS: CALCIUM LEVEL 9.1 MG/DL (8.3-10.6); CREATININE FOR GFR 1.46 MG/DL (0.55-1.30); GLOMERULAR FILTRATION RATE 38.8 (>45)
== END ==
LOC: M LAB 13:58
PROVIDERS: ATTEND Nurse Practitioner Family
DX: E87.5 Hyperkalemia (principal)

== ENCOUNTER 2023-06-08 10:11 | Emergency (ER) | payer OTHER, MEDICAID ==
[~2023-06-08] VITALS: Ht 162.6 cm; Wt 107.0 kg
[2023-06-08 10:13] VITALS: BP 150/90; TEMP 97; O2SAT 95
[2023-06-08 11:10] LABS: BASO # 0.1 10^3/uL (0.0-0.2); BASO % 0.7 % (0.0-1.0); EOS # 0.1 10^3/uL (0.0-0.5); EOS % 0.4 % (0.0-3.0); HEMATOCRIT 43.2 % (36.0-47.0); HEMOGLOBIN 14.5 g/dl (12.0-15.5); LYMPH # 2.4 10^3/uL (1.5-5.0); LYMPH % 18.9 % (24.0-44.0); MEAN CORPUSCULAR HEMOGLOBIN 30.7 pg (27.0-33.0); MEAN CORPUSCULAR HGB CONC 33.6 g/dl (32.0-36.5); MEAN CORPUSCULAR VOLUME 91.5 fl (80.0-96.0); MONO # 0.4 10^3/uL (0.0-0.8); MONO % 2.9 % (2.0-8.0); NEUTROPHILS # 9.6 10^3/uL (1.5-8.5); NEUTROPHILS % 76.9 % (36.0-66.0); PLATELET COUNT, AUTOMATED 331 10^3/uL (150-450); RED BLOOD COUNT 4.72 10^6/uL (4.00-5.40); WHITE BLOOD COUNT 12.5 10^3/uL (4.0-10.0)
[2023-06-08 11:32] LABS: LIPASE 92 U/L (12-53)
[2023-06-08 11:34] LABS: ALBUMIN 3.2 G/DL (3.2-5.2); ALKALINE PHOSPHATASE 156 U/L (46-116); ALT/SGPT 24 U/L (7.0-40); AST/SGOT 20 U/L (<34); BILIRUBIN,DIRECT < 0.1 MG/DL (<0.4); BILIRUBIN,TOTAL 0.3 MG/DL (0.3-1.2); TOTAL PROTEIN 7.1 G/DL (5.7-8.2)
[2023-06-08] MEDS: LIDOCAINE 5% (LIDODERM) PATCH TD ONE (12:50)
[2023-06-08] MEDS: ONDANSETRON 4MG ORAL DISINTEGRATING TAB PO ONE (12:50)
[2023-06-08] MEDS ORDERED: ACET-897 PO (13:50)
[2023-06-08] MEDS ORDERED: LIDO5DIS41 TOP (13:50)
[2023-06-08] MEDS ORDERED: CYCL-707 PO (13:50)
== END 2023-06-08 14:08 | disposition home or self-care (01) ==
LOC: M ED 10:11
DX: S33.5XXA Sprain of ligaments of lumbar spine, initial encounter (principal); W19.XXXA Unspecified fall, initial encounter; R00.0 Tachycardia, unspecified; I44.4 Left anterior fascicular block; I45.81 Long QT syndrome; E11.9 Type 2 diabetes mellitus without complications; I25.2 Old myocardial infarction; N18.30 Chronic kidney disease, stage 3 unspecified; Z88.8 Allergy status to other drugs, medicaments and biological substances; Z79.82 Long term (current) use of aspirin; Z79.02 Long term (current) use of antithrombotics/antiplatelets; Z79.891 Long term (current) use of opiate analgesic; Z79.4 Long term (current) use of insulin; Z79.811 Long term (current) use of aromatase inhibitors; Z79.899 Other long term (current) drug therapy; Y92.9 Unspecified place or not applicable; Y93.9 Activity, unspecified; Y99.9 Unspecified external cause status

== ENCOUNTER → 2023-06-26 | Outpatient (REF) | payer OTHER, MEDICAID ==
[~2023-06-26] MED LIST changes: +ACET-897 PO; +CYCL-707 PO; +LIDO5DIS41 TOP
[2023-06-26 13:33] LABS: THYROID STIMULATING HORMONE 1.663 uIU/ML (0.55-4.78); TOTAL 25(OH) VITAMIN D 35.8 NG/ML (20.0-100.0)
[2023-06-26 13:34] LABS: CHOLESTEROL RISK RATIO 5.66 (<5); HDL CHOLESTEROL 43.4 MG/DL (>40); NON-HDL-C 202.6 MG/DL
== END ==
LOC: M LAB REF 12:07
PROVIDERS: ATTEND Pediatrics
DX: E78.5 Hyperlipidemia, unspecified (principal); E55.9 Vitamin D deficiency, unspecified; R30.0 Dysuria

== ENCOUNTER 2023-09-08 10:23 | Emergency (ER) | payer OTHER, MEDICAID ==
[~2023-09-08] VITALS: Ht 152.4 cm; Wt 102.2 kg
[~2023-09-08 10:23] MED LIST changes: +DOXY-323 PO; -DOXY-443 PO; +TIZA4CAP3 PO; -TIZA4CAP6 PO
[2023-09-08 12:18] LABS: BASO # 0.1 10^3/uL (0.0-0.2); BASO % 0.8 % (0.0-1.0); EOS # 0.1 10^3/uL (0.0-0.5); EOS % 0.8 % (0.0-3.0); HEMATOCRIT 44.3 % (36.0-47.0); HEMOGLOBIN 14.6 g/dl (12.0-15.5); LYMPH # 2.1 10^3/uL (1.5-5.0); MEAN CORPUSCULAR HEMOGLOBIN 30.7 pg (27.0-33.0); MEAN CORPUSCULAR VOLUME 93.1 fl (80.0-96.0); MONO # 0.6 10^3/uL (0.0-0.8); MONO % 6.3 % (2.0-8.0); NEUTROPHILS # 6.6 10^3/uL (1.5-8.5); NEUTROPHILS % 69.9 % (36.0-66.0); PLATELET COUNT, AUTOMATED 272 10^3/uL (150-450); RED BLOOD COUNT 4.76 10^6/uL (4.00-5.40); WHITE BLOOD COUNT 9.5 10^3/uL (4.0-10.0)
[2023-09-08 12:45] LABS: ALBUMIN 2.9 G/DL (3.2-5.2); ALKALINE PHOSPHATASE 165 U/L (46-116); ALT/SGPT 22 U/L (7.0-40); AST/SGOT 21 U/L (<34); BILIRUBIN,TOTAL 0.3 MG/DL (0.3-1.2); BLOOD UREA NITROGEN 27 MG/DL (9-23); CALCIUM LEVEL 9.1 MG/DL (8.3-10.6); CARBON DIOXIDE LEVEL 24 MMOL/L (20-31); CHLORIDE LEVEL 100 MMOL/L (98-107); CREATININE FOR GFR 1.46 MG/DL (0.55-1.30); GLOMERULAR FILTRATION RATE 38.8 (>45); POTASSIUM SERUM 4.3 MMOL/L (3.5-5.1); SODIUM LEVEL 135 MMOL/L (136-145); TOTAL PROTEIN 6.8 G/DL (5.7-8.2)
[2023-09-08 12:55] LABS: BILIRUBIN,DIRECT < 0.1 MG/DL (<0.4); GLUCOSE, FASTING 444 MG/DL (74-106); LIPASE 120 U/L (12-53)
[2023-09-08] MEDS ORDERED: NS 1,000 ML IV ONE (13:10)
[2023-09-08] MEDS ORDERED: NS 500 ML IV ONE (13:15)
[2023-09-08 13:27] LABS: CK-MB VALUE MASS 1.4 NG/ML (<3.6)
[2023-09-08 13:28] LABS: CPK CREATINE PHOSPHOKINASE 70 U/L (34-145)
[2023-09-08] MEDS: ONDANSETRON 4MG 2ML VIAL IV ONE (13:29)
[2023-09-08] MEDS: METOCLOPRAMIDE INJ 10MG/2ML VIAL IV ONE (13:31)
[2023-09-08] MEDS: NS 1,000 ML IV ONE (13:34)
[2023-09-08 14:03] LABS: OSMOLALITY SERUM 315 MOSM/KG (280-301)
[2023-09-08] MEDS ORDERED: ONDA4TAB6 PO (15:39)
[2023-09-08] MEDS: MUPIROCIN 2% OINT 22 GM TUBE TOP ONE (15:42)
[2023-09-08] MEDS: MORPHINE 4 MG/ML 1ML VIAL IV ONE (15:42)
[2023-09-08 15:45] VITALS: TEMP 99.1
[2023-09-08] MEDS ORDERED: VENTAER INH (15:45)
[2023-09-08 16:01] VITALS: BP 165/72; O2SAT 97
== END 2023-09-08 16:22 | disposition home or self-care (01) ==
LOC: M ED 10:23
DX: J06.9 Acute upper respiratory infection, unspecified (principal); N18.30 Chronic kidney disease, stage 3 unspecified; E11.65 Type 2 diabetes mellitus with hyperglycemia; M50.30 Other cervical disc degeneration, unspecified cervical region; R00.0 Tachycardia, unspecified; I44.4 Left anterior fascicular block; I25.2 Old myocardial infarction; Z88.2 Allergy status to sulfonamides; Z79.52 Long term (current) use of systemic steroids; Z79.82 Long term (current) use of aspirin; Z79.02 Long term (current) use of antithrombotics/antiplatelets; Z79.811 Long term (current) use of aromatase inhibitors; Z79.4 Long term (current) use of insulin; Z79.899 Other long term (current) drug therapy
CPT/HCPCS: 71046; 74176; 80048; 80076; 81001; 82550; 82553; 83690; 83930; 84484; 85025; 87486; 87581; 87633; 87798; 93005; 96361; 96374; 96375; 99284; J2405; J2765

== ENCOUNTER → 2023-09-20 | Outpatient (REF) | payer OTHER, MEDICAID ==
[~2023-09-20] MED LIST changes: +ONDA4TAB6 PO; +VENTAER INH
== END ==
LOC: M LAB REF 12:39
PROVIDERS: ATTEND Pediatrics
DX: E11.59 Type 2 diabetes mellitus with other circulatory complications (principal)

== ENCOUNTER 2023-10-02 11:58 | Emergency (ER) | payer OTHER, MEDICAID ==
[~2023-10-02] VITALS: Ht 162.6 cm; Wt 104.3 kg
[~2023-10-02 11:58] MED LIST changes: +ONDA-282 PO; -ONDA4TAB6 PO
[2023-10-02 12:00] VITALS: BP 156/83; TEMP 97.8
[2023-10-02] MEDS: ACETAMINOPHEN 325 MG TAB PO ONE (14:23)
== END 2023-10-02 16:02 | disposition home or self-care (01) ==
LOC: M ED 11:58
DX: M79.672 Pain in left foot (principal); M77.32 Calcaneal spur, left foot; I25.2 Old myocardial infarction; E11.9 Type 2 diabetes mellitus without complications; I10 Essential (primary) hypertension; E78.5 Hyperlipidemia, unspecified; G40.909 Epilepsy, unspecified, not intractable, without status epilepticus; G47.33 Obstructive sleep apnea (adult) (pediatric); F41.9 Anxiety disorder, unspecified; F32.A Depression, unspecified; F43.10 Post-traumatic stress disorder, unspecified; K57.92 Diverticulitis of intestine, part unspecified, without perforation or abscess without bleeding; E66.9 Obesity, unspecified; Z88.8 Allergy status to other drugs, medicaments and biological substances; Z79.52 Long term (current) use of systemic steroids; Z79.82 Long term (current) use of aspirin; Z79.02 Long term (current) use of antithrombotics/antiplatelets; Z79.4 Long term (current) use of insulin; Z79.811 Long term (current) use of aromatase inhibitors; Z79.899 Other long term (current) drug therapy

== ENCOUNTER → 2023-11-11 | Outpatient (CLI) | payer OTHER, MEDICAID | LOC: M WHC 12:37 | PROVIDERS: ATTEND Pediatrics | DX: Z12.31 Encounter for screening mammogram for malignant neoplasm of breast (principal) ==

== ENCOUNTER → 2023-12-11 | Outpatient (REF) | payer OTHER, MEDICAID ==
[2023-12-11 18:53] LABS: BASO # 0.1 10^3/uL (0.0-0.2); BASO % 0.9 % (0.0-1.0); EOS # 0.2 10^3/uL (0.0-0.5); EOS % 1.8 % (0.0-3.0); HEMOGLOBIN 13.8 g/dl (12.0-15.5); LYMPH # 2.9 10^3/uL (1.5-5.0); LYMPH % 28.2 % (24.0-44.0); MEAN CORPUSCULAR HEMOGLOBIN 30.3 pg (27.0-33.0); MEAN CORPUSCULAR HGB CONC 31.4 g/dl (32.0-36.5); MEAN CORPUSCULAR VOLUME 96.5 fl (80.0-96.0); MONO # 0.5 10^3/uL (0.0-0.8); MONO % 4.4 % (2.0-8.0); NEUTROPHILS # 6.7 10^3/uL (1.5-8.5); NEUTROPHILS % 64.5 % (36.0-66.0); PLATELET COUNT, AUTOMATED 325 10^3/uL (150-450); RED BLOOD COUNT 4.56 10^6/uL (4.00-5.40); WHITE BLOOD COUNT 10.4 10^3/uL (4.0-10.0)
[2023-12-11 19:17] LABS: ALBUMIN 3.3 G/DL (3.2-5.2); BILIRUBIN,TOTAL 0.2 MG/DL (0.3-1.2); CALCIUM LEVEL 9.1 MG/DL (8.3-10.6); CHOLESTEROL RISK RATIO 4.8 (<5); CREATININE FOR GFR 1.65 MG/DL (0.55-1.30); GLOMERULAR FILTRATION RATE 33.7 (>45); HDL CHOLESTEROL 38.3 MG/DL (>40); LDL CHOLESTEROL 100.7 MG/DL (<100); NON-HDL-C 145.7 MG/DL; POTASSIUM SERUM 4.7 MMOL/L (3.5-5.1); TOTAL PROTEIN 7.4 G/DL (5.7-8.2)
[2023-12-11 19:19] LABS: THYROID STIMULATING HORMONE 1.854 uIU/ML (0.55-4.78)
== END ==
LOC: M LAB REF 17:23
PROVIDERS: ATTEND Pediatrics
DX: E78.5 Hyperlipidemia, unspecified (principal); K86.1 Other chronic pancreatitis; R10.9 Unspecified abdominal pain

== ENCOUNTER 2023-12-27 08:44 | Emergency (ER) | payer OTHER, MEDICAID ==
[~2023-12-27] VITALS: Ht 162.6 cm; Wt 105.5 kg
[2023-12-27 11:14] VITALS: BP 165/85; TEMP 98.5; O2SAT 96
== END 2023-12-27 11:21 | disposition home or self-care (01) ==
LOC: M ED 08:44
DX: S00.03XA Contusion of scalp, initial encounter (principal); S80.01XA Contusion of right knee, initial encounter; S80.02XA Contusion of left knee, initial encounter; W01.198A Fall on same level from slipping, tripping and stumbling with subsequent striking against other object, initial encounter; I25.2 Old myocardial infarction; I10 Essential (primary) hypertension; E78.5 Hyperlipidemia, unspecified; E11.9 Type 2 diabetes mellitus without complications; G47.33 Obstructive sleep apnea (adult) (pediatric); E66.9 Obesity, unspecified; Z88.8 Allergy status to other drugs, medicaments and biological substances; Y92.009 Unspecified place in unspecified non-institutional (private) residence as the place of occurrence of the external cause; Y93.89 Activity, other specified; Y99.9 Unspecified external cause status; Z79.82 Long term (current) use of aspirin; Z79.52 Long term (current) use of systemic steroids; Z79.4 Long term (current) use of insulin; Z79.811 Long term (current) use of aromatase inhibitors; Z79.899 Other long term (current) drug therapy

== ENCOUNTER → 2024-01-22 | Outpatient (CLI) | payer OTHER, MEDICAID ==
[2024-01-22 14:55] LABS: LIPASE 146 U/L (12-53)
[2024-01-22 14:58] LABS: FREE T4 0.87 NG/DL (0.89-1.76); THYROID STIMULATING HORMONE 1.989 uIU/ML (0.55-4.78); TOTAL 25(OH) VITAMIN D 33.8 NG/ML (20.0-100.0)
[2024-01-22 15:07] LABS: CREATININE, URINE 31.5 MG/DL
[2024-01-22 15:34] LABS: ALKALINE PHOSPHATASE 179 U/L (46-116); ALT/SGPT 19 U/L (7.0-40); AST/SGOT 13 U/L (<34); BILIRUBIN,TOTAL < 0.2 MG/DL (0.3-1.2); BLOOD UREA NITROGEN 37 MG/DL (9-23); CALCIUM LEVEL 9.7 MG/DL (8.3-10.6); CARBON DIOXIDE LEVEL 25 MMOL/L (20-31); CHLORIDE LEVEL 108 MMOL/L (98-107); CHOLESTEROL LEVEL 166 MG/DL (<200); CHOLESTEROL RISK RATIO 4.25 (<5); CREATININE FOR GFR 1.49 MG/DL (0.55-1.30); GLOMERULAR FILTRATION RATE 37.7 (>45); GLUCOSE, FASTING 414 MG/DL (74-106); LDL CHOLESTEROL 75.8 MG/DL (<100); MAU/CREAT RATIO 1393.6 MCG/MG (0.0-30.0); POTASSIUM SERUM 5.5 MMOL/L (3.5-5.1); SODIUM LEVEL 139 MMOL/L (136-145); TOTAL PROTEIN 6.9 G/DL (5.7-8.2); TRIGLYCERIDES LEVEL 256 MG/DL (<150)
== END ==
LOC: M LAB 13:36
PROVIDERS: ATTEND Physician Assistant
DX: E11.65 Type 2 diabetes mellitus with hyperglycemia (principal)

== ENCOUNTER 2024-02-28 13:43 | Emergency (ER) | payer OTHER, MEDICAID ==
[~2024-02-28] VITALS: Ht 162.6 cm; Wt 104.7 kg
[~2024-02-28 13:43] MED LIST changes: -DOXY-323 PO; +DOXY-441 PO; +GABA-1172; +GABA-1172 PO; -GABA-282; -GABA-282 PO; -ROSU20TA61 PO; +ROSU20TA86 PO; -SENN-111 PO; +SENN-165 PO
[2024-02-28] MEDS ORDERED: ACET650T61 PO (14:02)
[2024-02-28] MEDS: ONDANSETRON 4MG ORAL DISINTEGRATING TAB PO ONE (17:02)
[2024-02-28] MEDS: ACETAMINOPHEN 325 MG TAB PO ONE (17:03)
[2024-02-28 17:22] LABS: BASO # 0.1 10^3/uL (0.0-0.2); BASO % 0.5 % (0.0-1.0); EOS # 0.1 10^3/uL (0.0-0.5); EOS % 1.1 % (0.0-3.0); HEMATOCRIT 38.8 % (36.0-47.0); HEMOGLOBIN 12.3 g/dl (12.0-15.5); LYMPH # 2.4 10^3/uL (1.5-5.0); LYMPH % 20.7 % (24.0-44.0); MEAN CORPUSCULAR HEMOGLOBIN 30.7 pg (27.0-33.0); MEAN CORPUSCULAR HGB CONC 31.7 g/dl (32.0-36.5); MEAN CORPUSCULAR VOLUME 96.8 fl (80.0-96.0); MONO # 0.5 10^3/uL (0.0-0.8); MONO % 4.7 % (2.0-8.0); NEUTROPHILS # 8.3 10^3/uL (1.5-8.5); NEUTROPHILS % 72.7 % (36.0-66.0); PLATELET COUNT, AUTOMATED 293 10^3/uL (150-450); RED BLOOD COUNT 4.01 10^6/uL (4.00-5.40); WHITE BLOOD COUNT 11.5 10^3/uL (4.0-10.0)
[2024-02-28 17:50] LABS: ALBUMIN 2.7 G/DL (3.2-5.2); ALKALINE PHOSPHATASE 141 U/L (35-104); ALT/SGPT 20 U/L (7.0-40); AST/SGOT 11 U/L (<34); BILIRUBIN,DIRECT < 0.1 MG/DL (<0.4); BILIRUBIN,TOTAL 0.2 MG/DL (0.3-1.2); BLOOD UREA NITROGEN 35 MG/DL (9-23); CALCIUM LEVEL 9.5 MG/DL (8.3-10.6); CARBON DIOXIDE LEVEL 28 MMOL/L (20-31); CHLORIDE LEVEL 108 MMOL/L (98-107); CK-MB VALUE MASS 1.2 NG/ML (<3.6); CREATININE FOR GFR 1.47 MG/DL (0.55-1.30); GLOMERULAR FILTRATION RATE 38.3 (>45); GLUCOSE, FASTING 105 MG/DL (74-106); POTASSIUM SERUM 4.6 MMOL/L (3.5-5.1); SODIUM LEVEL 141 MMOL/L (136-145); TOTAL PROTEIN 6.6 G/DL (5.7-8.2)
[2024-02-28 17:53] LABS: CPK CREATINE PHOSPHOKINASE 74 U/L (34-145); MB/CK RELATIVE INDEX 1.62 (< OR =4)
[2024-02-28] MEDS: cefTRIAXone SOD 1 GM in DEXTROSE 5% (D5W) ADV/MINI-BAG 50 ML IV ONE (19:40)
[2024-02-28 20:48] LABS: CK-MB VALUE MASS 1.1 NG/ML (<3.6)
[2024-02-28 20:50] LABS: MB/CK RELATIVE INDEX 1.61 (< OR =4)
[2024-02-28] MEDS ORDERED: CEFD1CAP9 PO (20:59)
[2024-02-28] MEDS ORDERED: ONDA-282 PO (21:01)
[2024-02-28 21:08] VITALS: BP 146/66; TEMP 97.8; O2SAT 96
== END 2024-02-28 21:14 | disposition home or self-care (01) ==
LOC: M ED 13:43
DX: N39.0 Urinary tract infection, site not specified (principal); N18.30 Chronic kidney disease, stage 3 unspecified; E66.9 Obesity, unspecified; E11.9 Type 2 diabetes mellitus without complications; I10 Essential (primary) hypertension; E78.5 Hyperlipidemia, unspecified; I25.2 Old myocardial infarction; Z86.79 Personal history of other diseases of the circulatory system; Z88.8 Allergy status to other drugs, medicaments and biological substances; Z79.01 Long term (current) use of anticoagulants; Z79.82 Long term (current) use of aspirin; Z79.52 Long term (current) use of systemic steroids; Z79.1 Long term (current) use of non-steroidal anti-inflammatories (NSAID); Z79.811 Long term (current) use of aromatase inhibitors; Z79.899 Other long term (current) drug therapy
CPT/HCPCS: 71045; 76775; 80048; 80076; 81001; 82550; 82553; 84484; 85025; 87088; 87186; 87486; 87581; 87633; 87798; 93005; 93041; 96374; 99284; J0696

== ENCOUNTER → 2024-03-13 | Outpatient (CLI) | payer OTHER, MEDICAID ==
[~2024-03-13] MED LIST changes: +ACET650T61 PO; +CEFD1CAP9 PO; +NYST1POW3 TOP; -NYST1POW9 TOP
== END ==
LOC: M RAD 12:00
PROVIDERS: ATTEND Physician Assistant
DX: E04.1 Nontoxic single thyroid nodule (principal)

== ENCOUNTER 2024-04-12 11:46 | Observation (INO) | payer OTHER, MEDICAID ==
[~2024-04-12] VITALS: Ht 162.6 cm; Wt 106.0 kg
[2024-04-12 13:29] LABS: BASO # 0.1 10^3/uL (0.0-0.2); BASO % 0.7 % (0.0-1.0); EOS # 0.2 10^3/uL (0.0-0.5); EOS % 2.6 % (0.0-3.0); HEMATOCRIT 41.3 % (36.0-47.0); HEMOGLOBIN 12.9 g/dl (12.0-15.5); LYMPH # 2.3 10^3/uL (1.5-5.0); MEAN CORPUSCULAR HEMOGLOBIN 30.4 pg (27.0-33.0); MEAN CORPUSCULAR HGB CONC 31.2 g/dl (32.0-36.5); MEAN CORPUSCULAR VOLUME 97.2 fl (80.0-96.0); MONO # 0.4 10^3/uL (0.0-0.8); MONO % 4.4 % (2.0-8.0); NEUTROPHILS # 5.8 10^3/uL (1.5-8.5); NEUTROPHILS % 65.8 % (36.0-66.0); PLATELET COUNT, AUTOMATED 274 10^3/uL (150-450); RED BLOOD COUNT 4.25 10^6/uL (4.00-5.40); WHITE BLOOD COUNT 8.8 10^3/uL (4.0-10.0)
[2024-04-12 13:55] LABS: CALCIUM LEVEL 9.2 MG/DL (8.3-10.6); CREATININE FOR GFR 1.59 MG/DL (0.55-1.30); MAGNESIUM LEVEL 1.9 MG/DL (1.8-2.4); POTASSIUM SERUM 5.3 MMOL/L (3.5-5.1)
[2024-04-12 13:57] LABS: FREE T4 0.86 NG/DL (0.89-1.76); THYROID STIMULATING HORMONE 1.722 uIU/ML (0.55-4.78)
[2024-04-12] MEDS ORDERED: MOM 30ML SUSPENSION UDC PO PRN (16:05)
[2024-04-12] MEDS ORDERED: MAALOX 30 ML SUSP *UDC PO PRN (16:05)
[2024-04-12] MEDS ORDERED: GLUCAGON INJ 1MG VIAL SC PRN (16:05)
[2024-04-12] MEDS ORDERED: GLUCOSE 4 GM CHEW PO PRN (16:05)
[2024-04-12] MEDS ORDERED: DEXTROSE 50% 50ML SYRINGE IV PRN (16:05)
[2024-04-12] MEDS ORDERED: TELM1TAB37 PO (16:20)
[2024-04-12] MEDS ORDERED: ALBU8.5H INH (16:20)
[2024-04-12] MEDS: ACETAMINOPHEN 325 MG TAB PO PRN (16:23)
[2024-04-12] MEDS ORDERED: HOME MED LIST COMPLETE! XX SCH (16:25)
[2024-04-12] MEDS ORDERED: ALBUTEROL 90 MCG/ACT 8GM HFA INHALER INH PRN (16:35)
[2024-04-12] MEDS ORDERED: NYSTATIN 100,000 UNITS/GM TOPICAL PWD 15GM TOP PRN (16:35)
[2024-04-12] MEDS ORDERED: NITROGLYCERIN 0.4MG SUBL TABLET SL PRN (16:35)
[2024-04-12] MEDS: ONDANSETRON 4MG 2ML VIAL IV PRN (16:35)
[2024-04-12 16:54] LABS: PROCALCITONIN 0.06 ng/ml
[2024-04-12] MEDS: SOD POLYSTYRENE SULFONATE SUSP 15GM 60ML UD PO ONE (17:07)
[2024-04-12] MEDS: INSULIN LISPRO (NovoLOG) PER UNIT SC SCH ×2 (17:30→21:13)
[2024-04-12] MEDS: DOCUSATE SODIUM 100MG CAPSULE PO SCH (21:45)
[2024-04-12] MEDS: METOPROLOL TART 50 MG TAB PO SCH (21:46)
[2024-04-12] MEDS: MAGNESIUM OXIDE 400MG TAB (MAG-OX) PO SCH (21:47)
[2024-04-12] MEDS: MEMANTINE 5MG TABLET (NAMENDA) PO SCH (21:47)
[2024-04-12] MEDS: CETIRIZINE (ZyrTEC) 10 MG TAB PO SCH (21:47)
[2024-04-12] MEDS: GABAPENTIN 300 MG CAP PO SCH (21:47)
[2024-04-12] MEDS: ATORVASTATIN 20 MG TAB PO SCH (21:47)
[2024-04-12] MEDS: TELMISARTAN 20 MG TAB PO SCH (21:47)
[2024-04-12] MEDS: ZONISAMIDE 100 MG CAP (ZONEGRAN) PO SCH (21:47)
[2024-04-12] MEDS: LIDOCAINE 5% (LIDODERM) PATCH TOP SCH (21:48)
[2024-04-12] MEDS: HEPARIN SOD (PORCINE) 5000UNITS/ML 1ML VIAL/SYRINGE SC SCH (21:48)
[2024-04-12] MEDS: LEVEMIR (INSULIN DETEMIR) 1 UNITS/0.01ML SC SCH (21:49)
[2024-04-13 07:10] LABS: BASO # 0.1 10^3/uL (0.0-0.2); BASO % 0.7 % (0.0-1.0); EOS # 0.2 10^3/uL (0.0-0.5); EOS % 2.5 % (0.0-3.0); HEMATOCRIT 42.4 % (36.0-47.0); HEMOGLOBIN 13.3 g/dl (12.0-15.5); LYMPH # 2.6 10^3/uL (1.5-5.0); MEAN CORPUSCULAR HEMOGLOBIN 30.4 pg (27.0-33.0); MEAN CORPUSCULAR HGB CONC 31.4 g/dl (32.0-36.5); MEAN CORPUSCULAR VOLUME 96.8 fl (80.0-96.0); MONO # 0.3 10^3/uL (0.0-0.8); NEUTROPHILS # 5.2 10^3/uL (1.5-8.5); NEUTROPHILS % 61.6 % (36.0-66.0); PLATELET COUNT, AUTOMATED 291 10^3/uL (150-450); RED BLOOD COUNT 4.38 10^6/uL (4.00-5.40); WHITE BLOOD COUNT 8.5 10^3/uL (4.0-10.0)
[2024-04-13 07:39] LABS: CALCIUM LEVEL 9.2 MG/DL (8.3-10.6); CREATININE FOR GFR 1.55 MG/DL (0.55-1.30); GLOMERULAR FILTRATION RATE 36.1 (>45); MAGNESIUM LEVEL 1.9 MG/DL (1.8-2.4); POTASSIUM SERUM 4.7 MMOL/L (3.5-5.1)
[2024-04-13] MEDS ORDERED: VENLAFAXINE **XR** 75MG CAPSULE PO SCH (09:00)
[2024-04-13] MEDS: ISOSORBIDE MON. (IMDUR) 60MG XR TAB PO SCH (09:00)
[2024-04-13] MEDS: NS (Normal Saline) 0.9% 1,000 ML IV ONE (10:26)
[2024-04-13 11:04] LABS: CK-MB VALUE MASS < 1.0 NG/ML (<3.6)
[2024-04-13 11:07] LABS: CPK CREATINE PHOSPHOKINASE 72 U/L (34-145); MB/CK RELATIVE INDEX 1.38 (< OR =4)
[2024-04-13 12:35] LABS: CK-MB VALUE MASS < 1.0 NG/ML (<3.6)
[2024-04-13 12:37] LABS: CPK CREATINE PHOSPHOKINASE 63 U/L (34-145); MB/CK RELATIVE INDEX 1.58 (< OR =4)
[2024-04-13] MEDS ORDERED: hydrALAZINE 20MG/ML 1ML VIAL IV PRN (14:05)
[2024-04-13] MEDS: ASPIRIN 81MG ENTERIC TABLET PO SCH (14:09)
[2024-04-13] MEDS: FLUTICASONE PROP 0.05% NASAL SPRAY 16 GM (FLONASE) NARES SCH (14:09)
[2024-04-13] MEDS: VITAMIN D 1,000 INTERNATIONAL UNITS TABLET PO SCH (14:10)
[2024-04-13] MEDS: FERROUS SULFATE 325MG TAB PO SCH (14:10)
[2024-04-13] MEDS: EZETIMIBE 10MG TABLET (ZETIA) PO SCH (14:11)
[2024-04-13] MEDS: CLOPIDOGREL 75 MG TAB PO SCH (14:11)
[2024-04-13] MEDS: PANTOPRAZOLE 40MG TAB (PROTONIX) PO SCH (14:11)
[2024-04-13] MEDS: DONEPEZIL 5 MG TAB PO SCH (14:12)
[2024-04-13] MEDS: VENLAFAXINE **XR** 75MG CAPSULE PO SCH (14:20)
[2024-04-13 14:58] LABS: CK-MB VALUE MASS < 1.0 NG/ML (<3.6)
[2024-04-13 15:00] LABS: CPK CREATINE PHOSPHOKINASE 65 U/L (34-145); MB/CK RELATIVE INDEX 1.53 (< OR =4)
[2024-04-13 16:35] VITALS: BP 119/66; TEMP 98.8; O2SAT 94
[2024-04-13 20:00] VITALS: BP 128/60; TEMP 97.5; O2SAT 90
[2024-04-13] MEDS: MEMANTINE 5MG TABLET (NAMENDA) PO SCH (22:06)
[2024-04-13] MEDS: METOPROLOL TART 25 MG TABLET PO SCH (22:07)
[2024-04-14] VITALS (8 sets, daily range): BP systolic 122–170; BP diastolic 60–88; TEMP 97.5–98.5; O2SAT 93–95
[2024-04-14 07:45] LABS: BASO # 0.1 10^3/uL (0.0-0.2); BASO % 0.8 % (0.0-1.0); EOS # 0.2 10^3/uL (0.0-0.5); EOS % 2.1 % (0.0-3.0); HEMATOCRIT 38.4 % (36.0-47.0); LYMPH # 3.1 10^3/uL (1.5-5.0); MEAN CORPUSCULAR HEMOGLOBIN 30.1 pg (27.0-33.0); MEAN CORPUSCULAR HGB CONC 31.3 g/dl (32.0-36.5); MEAN CORPUSCULAR VOLUME 96.2 fl (80.0-96.0); MONO # 0.5 10^3/uL (0.0-0.8); MONO % 5.2 % (2.0-8.0); NEUTROPHILS # 5.2 10^3/uL (1.5-8.5); NEUTROPHILS % 57.7 % (36.0-66.0); PLATELET COUNT, AUTOMATED 265 10^3/uL (150-450); RED BLOOD COUNT 3.99 10^6/uL (4.00-5.40)
[2024-04-14 08:13] LABS: CALCIUM LEVEL 9.1 MG/DL (8.3-10.6); CREATININE FOR GFR 1.63 MG/DL (0.55-1.30); MAGNESIUM LEVEL 1.9 MG/DL (1.8-2.4); POTASSIUM SERUM 4.5 MMOL/L (3.5-5.1)
[2024-04-14] MEDS ORDERED: METO1TAB87 PO (12:19)
[2024-04-14] MEDS: **hydrALAZINE HCL** 25 MG TAB PO ONE (13:15)
[2024-04-14] MEDS ORDERED: **hydrALAZINE HCL** 25 MG TAB PO SCH (22:00)
== END 2024-04-14 15:38 | disposition home or self-care (01) ==
LOC: M ED 11:46 → M ED INP 16:02 → M PCU 04-13 16:28
PROVIDERS: ADMIT Internal Medicine; ATTEND Internal Medicine
DX: R55 Syncope and collapse (principal); I10 Essential (primary) hypertension; I48.91 Unspecified atrial fibrillation; F03.90 Unspecified dementia, unspecified severity, without behavioral disturbance, psychotic disturbance, mood disturbance, and anxiety; I25.10 Atherosclerotic heart disease of native coronary artery without angina pectoris; E11.9 Type 2 diabetes mellitus without complications; G47.33 Obstructive sleep apnea (adult) (pediatric); G40.909 Epilepsy, unspecified, not intractable, without status epilepticus; N18.30 Chronic kidney disease, stage 3 unspecified; F39 Unspecified mood [affective] disorder; E66.9 Obesity, unspecified; Z79.82 Long term (current) use of aspirin; Z79.4 Long term (current) use of insulin; Z79.899 Other long term (current) drug therapy; Z88.8 Allergy status to other drugs, medicaments and biological substances
CPT/HCPCS: 36415; 70450; 70551; 71045; 72125; 73030; 73080; 73110; 73130; 80048; 82550; 82553; 83735; 84145; 84439; 84443; 84484; 85025; 87486; 87507; 87581; 87633; 87798; 93005; 93041; 93306; 94760; 96374; 96375; 97116; 97161; 99285; G0378; G0390; J1815; J2405

== ENCOUNTER → 2024-04-14 | Outpatient (CLI) | payer OTHER, MEDICAID ==
[~2024-04-14] MED LIST changes: +ALBU8.5H INH; +METO1TAB87 PO; +TELM1TAB37 PO
== END ==
LOC: M EKG 15:54
PROVIDERS: ATTEND Internal Medicine
DX: R00.1 Bradycardia, unspecified (principal)

== ENCOUNTER → 2024-06-15 | Outpatient (REF) | payer OTHER, MEDICAID ==
[~2024-06-15] MED LIST changes: -BAYE325T12 PO; +BAYE325T2 PO
== END ==
LOC: M LAB REF 15:59
PROVIDERS: ATTEND Pediatrics
DX: R30.0 Dysuria (principal)

== ENCOUNTER 2024-06-17 13:57 | Emergency (ER) | payer OTHER, MEDICAID ==
[2024-06-17 23:27] VITALS: BP 165/85; TEMP 97.9; O2SAT 95
== END 2024-06-17 23:27 | disposition home or self-care (01) ==
LOC: M ED 13:57
DX: M79.671 Pain in right foot (principal); W01.0XXA Fall on same level from slipping, tripping and stumbling without subsequent striking against object, initial encounter; Y93.K1 Activity, walking an animal; Y92.410 Unspecified street and highway as the place of occurrence of the external cause; Y99.9 Unspecified external cause status; I25.10 Atherosclerotic heart disease of native coronary artery without angina pectoris; I25.2 Old myocardial infarction; I12.9 Hypertensive chronic kidney disease with stage 1 through stage 4 chronic kidney disease, or unspecified chronic kidney disease; E11.40 Type 2 diabetes mellitus with diabetic neuropathy, unspecified; Z88.8 Allergy status to other drugs, medicaments and biological substances; Z79.4 Long term (current) use of insulin; Z79.899 Other long term (current) drug therapy; Z79.82 Long term (current) use of aspirin

== ENCOUNTER → 2024-08-04 | Outpatient (CLI) | payer MEDICARE, MEDICAID | LOC: M PLAIMG 11:21 | PROVIDERS: ATTEND Nurse Practitioner | DX: R55 Syncope and collapse (principal) ==

== ENCOUNTER → 2024-08-10 | Outpatient (REF) | payer MEDICARE, MEDICAID ==
[2024-08-12 15:07] LABS: HPV APTIMA Not Detected (Not Detected)
== END ==
LOC: M SFHCWAGY 13:36
PROVIDERS: ATTEND Nurse Practitioner Family
DX: Z12.4 Encounter for screening for malignant neoplasm of cervix (principal); Z11.51 Encounter for screening for human papillomavirus (HPV); Z77.9 Other contact with and (suspected) exposures hazardous to health
CPT/HCPCS: 87624; G0123

== ENCOUNTER 2024-08-26 17:50 | Emergency (ER) | payer MEDICAID, MEDICARE ==
[~2024-08-26] VITALS: Ht 162.6 cm; Wt 105.2 kg
[~2024-08-26 17:50] MED LIST changes: -NYST-13 EXT; +NYST0.1C EXT
[2024-08-26 19:12] LABS: INR 0.93; PARTIAL THROMBOPLASTIN TIME 29.9 SECONDS (24.8-34.2); PROTHROMBIN TIME 12.8 SECONDS (12.5-14.5)
[2024-08-26 19:22] LABS: CK-MB VALUE MASS 1.5 NG/ML (<3.6)
[2024-08-26 19:23] LABS: ALBUMIN 3.1 G/DL (3.2-5.2); ALKALINE PHOSPHATASE 165 U/L (35-104); ALT/SGPT 27 U/L (7.0-40); AST/SGOT 26 U/L (<34); BILIRUBIN,DIRECT < 0.1 MG/DL (<0.4); BILIRUBIN,TOTAL 0.2 MG/DL (0.3-1.2); BLOOD UREA NITROGEN 37 MG/DL (9-23); CALCIUM LEVEL 9.2 MG/DL (8.3-10.6); CARBON DIOXIDE LEVEL 25 MMOL/L (20-31); CHLORIDE LEVEL 107 MMOL/L (98-107); CREATININE FOR GFR 1.34 MG/DL (0.55-1.30); GLOMERULAR FILTRATION RATE 44.8 (>45); GLUCOSE, FASTING 270 MG/DL (74-106); POTASSIUM SERUM 4.6 MMOL/L (3.5-5.1); SODIUM LEVEL 142 MMOL/L (136-145); TOTAL PROTEIN 6.9 G/DL (5.7-8.2)
[2024-08-26 19:27] LABS: THYROID STIMULATING HORMONE 1.906 uIU/ML (0.55-4.78)
[2024-08-26 19:28] LABS: CPK CREATINE PHOSPHOKINASE 85 U/L (34-145); MB/CK RELATIVE INDEX 1.76 (< OR =4)
[2024-08-26] MEDS: ACETAMINOPHEN 500 MG TAB PO ONE (21:32)
[2024-08-26 21:46] LABS: D-DIMER QUANT 0.45 ug/mL (<0.5)
[2024-08-26 21:50] LABS: BASO # 0.1 10^3/uL (0.0-0.2); BASO % 0.8 % (0.0-1.0); EOS # 0.2 10^3/uL (0.0-0.5); EOS % 1.7 % (0.0-3.0); HEMOGLOBIN 12.6 g/dl (12.0-15.5); LYMPH % 32.5 % (24.0-44.0); MEAN CORPUSCULAR HEMOGLOBIN 30.4 pg (27.0-33.0); MEAN CORPUSCULAR HGB CONC 32.3 g/dl (32.0-36.5); MONO # 0.4 10^3/uL (0.0-0.8); MONO % 4.5 % (2.0-8.0); NEUTROPHILS # 5.6 10^3/uL (1.5-8.5); NEUTROPHILS % 60.2 % (36.0-66.0); PLATELET COUNT, AUTOMATED 261 10^3/uL (150-450); RED BLOOD COUNT 4.15 10^6/uL (4.00-5.40); WHITE BLOOD COUNT 9.3 10^3/uL (4.0-10.0)
[2024-08-26 21:54] LABS: KETONE, URINE AUTO RFX NEGATIVE (NEGATIVE); NITRITE, URINE AUTO RFX NEGATIVE (NEGATIVE); RBC, URINE AUTO RFX 7 /HPF (0-3); SQUAM EPITHELIAL CELL UR AURFX 8 /HPF (0-6)
[2024-08-26 21:55] LABS: LEUKOCYTE ESTERASE UR AUTO RFX 1+ (NEGATIVE); WBC, URINE AUTO RFX 14 /HPF (0-3)
[2024-08-27] MEDS ORDERED: CEFD1CAP9 PO (01:44)
[2024-08-27] MEDS: CEFDINIR 300 MG CAP (OMNICEF) PO ONE (01:58)
[2024-08-27] MEDS: NS (Normal Saline) 0.9% 1,000 ML IV ONE (02:00)
[2024-08-27 04:08] VITALS: BP 180/89; TEMP 96.6; O2SAT 94
== END 2024-08-27 04:28 | disposition home or self-care (01) ==
LOC: M ED 17:50
DX: R07.9 Chest pain, unspecified (principal); N39.0 Urinary tract infection, site not specified; R06.02 Shortness of breath; R00.0 Tachycardia, unspecified; I44.4 Left anterior fascicular block; E11.9 Type 2 diabetes mellitus without complications; I25.2 Old myocardial infarction; E78.5 Hyperlipidemia, unspecified; I10 Essential (primary) hypertension; F41.9 Anxiety disorder, unspecified; G47.30 Sleep apnea, unspecified; F03.90 Unspecified dementia, unspecified severity, without behavioral disturbance, psychotic disturbance, mood disturbance, and anxiety; N18.9 Chronic kidney disease, unspecified; Z86.79 Personal history of other diseases of the circulatory system; Z88.8 Allergy status to other drugs, medicaments and biological substances; Z79.52 Long term (current) use of systemic steroids; Z79.82 Long term (current) use of aspirin; Z79.02 Long term (current) use of antithrombotics/antiplatelets; Z79.2 Long term (current) use of antibiotics; Z79.899 Other long term (current) drug therapy

== ENCOUNTER → 2025-03-03 | Outpatient (REF) | payer MEDICARE, MEDICAID ==
[~2025-03-03] MED LIST changes: -ACE65ERTAB PO; +ACET-1593 PO; -COLC0.6T47 PO; +COLC0.6T53 PO; -EZET10TA21 PO; +EZET10TA57 PO; +LIDO1ADH93 TD; +LIDO1ADH93 TOP; -LIDO5DIS41 TD; -LIDO5DIS41 TOP
[2025-03-03 13:16] LABS: CREATININE, URINE 42.7 MG/DL
[2025-03-03 13:33] LABS: MALB URINE SIEMENS 2070.0 MG/L; MAU/CREAT RATIO 4847.7 MCG/MG (0.0-30.0)
[2025-03-03 15:03] LABS: ALT/SGPT 35.0 U/L (7.0-40); AST/SGOT 30.0 U/L (<34); CALCIUM LEVEL 9.5 MG/DL (8.3-10.6); CARBON DIOXIDE LEVEL 32.0 MMOL/L (20-31); CHLORIDE LEVEL 99.0 MMOL/L (98-107); CHOLESTEROL LEVEL 270.0 MG/DL (<200); CHOLESTEROL RISK RATIO 4.12 (<5); CREATININE FOR GFR 1.45 MG/DL (0.55-1.30); GLOMERULAR FILTRATION RATE 40.5 (>45); LDL CHOLESTEROL 155.7 MG/DL (<100); NON-HDL-C 204.5 MG/DL; POTASSIUM SERUM 4.7 MMOL/L (3.5-5.1); SODIUM LEVEL 139.0 MMOL/L (136-145); TRIGLYCERIDES LEVEL 244.0 MG/DL (<150)
[2025-03-03 15:10] LABS: ESTIMATED AVERAGE GLUCOSE 315.0 MG/DL (60-110)
== END ==
LOC: M LAB REF 12:23
PROVIDERS: ATTEND Pediatrics
DX: E11.59 Type 2 diabetes mellitus with other circulatory complications (principal)